=== PATIENT | male | born 1955 | race Caucasian/White ===

== ENCOUNTER 2023-07-09 10:09 | Outpatient (REF) | payer MEDICARE, SELFPAY ==
[2023-07-09 14:21] LABS: SARS-CoV-2 Ag NEGATIVE (NEGATIVE)
[2023-07-10 12:49] LABS: SARS-CoV-2 NAA NOT DETECTED (NOT DETECTE)
== END 2023-07-09 10:10 | disposition home or self-care (01) ==
LOC: LAB 10:09
PROVIDERS: PCP Family Medicine; Visit Provider Family Medicine
DX: J44.9 Chronic obstructive pulmonary disease, unspecified (principal)
CPT/HCPCS: 87635; 87811; U0003

== ENCOUNTER 2023-07-16 08:58 | Outpatient (OUT) | payer MEDICARE, SELFPAY ==
[2023-07-16 09:44] LABS: Aspartate Amino Transferase 82 U/L (15-37); BUN Creatinine Ratio 19.2; Carbon Dioxide 27.4 mmol/L (21.0-32.0); Chloride 99 mmol/L (98-107); Chol HDL Ratio 2.7; Cholesterol 173 mg/dL (<=200); Estimated GFR (African America >60 (>=60); Estimated GFR (Non-African Ame >60 (>=60); Glucose 138 mg/dL (74-106); HDL Cholesterol 63 mg/dL (40-60); Potassium 4.4 mmol/L (3.5-5.1); Sodium 132 mmol/L (136-145); Thyroid Stimulating Hormone 3.657 uIU/mL (0.358-3.740); Triglycerides 145 mg/dL (<=150)
== END 2023-07-16 08:59 | disposition home or self-care (01) ==
LOC: LAB 08:59
PROVIDERS: PCP Family Medicine; Visit Provider Internal Medicine Cardiovascular Disease
DX: I48.92 Unspecified atrial flutter (principal); Z79.899 Other long term (current) drug therapy; E78.5 Hyperlipidemia, unspecified
CPT/HCPCS: 36415; 80048; 80061; 84443; 84450

== ENCOUNTER 2023-11-25 09:53 | Outpatient (REF) | payer MEDICARE, SELFPAY ==
[2023-11-25 10:37] LABS: Influenza Virus A Antigen Negative; Influenza Virus B Antigen Negative; Internal Control Within Normal Limits; Respiratory Syncytial Virus Not Detected (NOT DETECTE); SARS-CoV-2 Ag NEGATIVE (NEGATIVE)
== END 2023-11-25 09:54 | disposition home or self-care (01) ==
LOC: LAB 09:53
PROVIDERS: PCP Family Medicine; Visit Provider Family Medicine
DX: J21.9 Acute bronchiolitis, unspecified (principal)
CPT/HCPCS: 87420; 87804; 87811

== ENCOUNTER 2024-01-09 12:10 | Outpatient (OUT) | payer MEDICARE, SELFPAY ==
--- NOTE | 2024-01-09 | RT_ITS ---
[facility] Test Date: 2024-01-09 Pat Name: REMEDIOS VAUGHAN Department: Room: - Gender: Male [employer]: Rakesh Wagner RRT : 1955 Requested By: [id number] Order Number: [id number] Reading MD: Gasper Sewell Interpretive Statements Pulmonary function testing was completed according to ATS criteria. Findings were considered accurate and reproducible. Both pre- and post-bronchodilator values utilized for spirometry. No plethysmography was ordered. Spirometry (based on pre-bronchodilator values): -FEV1/FVC: Reduced @ 43% -FEV1: Severely reduced @ 40% -FVC: Reduced @ 68% -There is a positive bronchodilator response in FEV1 and FVC. Diffusion capacity: -DLCO: Mild-moderate reduction @ 65% when corrected for Hb 13.1g/dL Flow-volume loop: -Severe obstructive pattern Comparison from 01/10/2023 and 10/23/2022: -FEV1: Very slight decline from 43% & 46% respectively -DLCO: Very little change from 63% & 67% respectively Impressions: -Severe obstructive pattern on spirometry with a positive bronchodilator response and mild-moderate diffusion impairment. This pattern suggests either asthma-COPD overlap or COPD with a bronchodilator response. When compared to prior studies, there has been a very slight trend of worsening spirometry, and diffusion impairment is relatively unchanged. Clinical correlation required. Electronically Signed On 01-14-2024 10:39:31 EDT by Gasper Sewell
--- OUTSIDE RECORDS SUMMARY | 2024-01-09 12:16 | XMS_ITS | CCD ---
Author Name Unknown Address [address] [place] [address] Organization [facility] Care Team Providers Care Event Specialist Product Demonstrator Name Role Phone MD Tirso Frausto Primary Care Provider MD Pola Anders Admit Provider MD Jin Berkowitz Attending Provider [phone] MD Ama Morrison Attending Provider Tirso Frausto Unavailable Unavailable Unavailable MD Marcus Recinos Attending Provider [phone] MD Marcus Recinos Referring Provider [phone] Tirso Frausto Primary Care Physician Unavailable Unavailable MD Tirso Frausto Primary Care Provider Jina Rios Unavailable Carlos A Salazar Unavailable Victoria Mujica Unavailable Olga Phipps Unavailable Dr. Tirso Frausto Primary Care Unavail able Marcus Recinos Attending Unavailable Marcus Recinos Referring Unavailable Dr. Tirso Frausto Primary Care Unavail able Marcus Recinos Attending Unavailable Devendra Recinosan Referring Unavailable Marcus Recinos Attending Unavailable Dr. Tirso Frausto Primary Care Unavail able Marcus Recinos Referring Unavailable Marcus Recinos Attending Unavailable Dr. Tirso Frausto Primary Care Unavail able Conor, Dr. Darwin Gee Attending Unava ilable Dr. Darwin Perdomo Referring Unava ilable Dr. Tirso Frausto Primary Care Unavail able Recinos, Marcus Referring Unavailable Hoy, Dr. Tirso Santos Primary Care Unavail able Recinos, Marcus Attending Unavailable REQUEST, NONE LISTED Primary Care Unavaila ble HOY ., DR CHAHAL Consulting Unavailable HOY ., DR CHAHAL Attending Unavailable HOY ., DR CHAHAL Admitting Unavailable FESTUS, STANFORD Consulting Unavailable RECINOS, DR MARCUS Rivera Attending Unavailable RECINOS, DR MARCUS Rivera Admitting Unavailable RECINOS, DR MARCUS Rivera Consulting Unavailable RECINOS, DR MARCUS Rivera Attending Unavailable RECINOS, DR MARCUS Rivera Admitting Unavailable REQUEST, NONE LISTED Primary Care Unavaila ble RECINOS, DR MARCUS Rivera Consulting Unavailable HOY ., DR CHAHAL Consulting Unavailable REQUEST, NONE LISTED Primary Care Unavaila ble HOY ., DR CHAHAL Attending Unavailable HOY ., DR CHAHAL Admitting Unavailable RECINOS, DR MARCUS Rivera Consulting Unavailable RECINOS, DR MARUCS Rivera Consulting Unavailable RECINOS, DR MARCUS Rivera Attending Unavailable RECINOS, DR MARCUS Rivera Admitting Unavailable REQUEST, DR NONE LISTED Primary Care Unavaila ble RECINOS, DR MARCUS Rivera Attending Unavailable RECINOS, DR MARCUS Rivera Admitting Unavailable REQUEST, NONE LISTED Primary Care Unavaila ble DEE BARTON Consulting Unavailable RECINOS, DR MARCUS Rivera Consulting Unavailable NOELLE VALERA Attending Unavailable NOELLE VALERA Admitting Unavailable REQUEST, NONE LISTED Primary Care Unavaila ble NOELLE VALERA Consulting Unavailable HOY ., DR CHAHAL Consulting Unavailable REQUEST, DR NONE LISTED Primary Care Unavaila ble HOY ., DR CHAHAL Attending Unavailable HOY ., DR CHAHAL Admitting Unavailable HOY ., DR CHAHAL Primary Care Unavailable HOY ., DR CHAHAL Consulting Unavailable HOY ., DR CHAHAL Attending Unavailable HOY ., DR CHAHAL Admitting Unavailable HOY ., DR CHAHAL Primary Care Unavailable HOY ., DR CHAHAL Attending Unavailable HOY ., DR CHAHAL Consulting Unavailable HOY ., DR CHAHAL Admitting Unavailable Recinos, Marcus Admitting Unavailable Recinos, Marcus Attending Unavailable FrancoyTirso Primary Care Unavailable Recinos, Marcus Admitting Unavailable Recinos, Marcus Attending Unavailable HoyTirso Primary Care Unavailable Recinos, Marcus Admitting Unavailable Recinos, Marcus Attending Unavailable Hoy, Tirso M Primary Care Unavailable Tirso Frausto MD Primary Care Provider MARCUS RECINOS Attending Unavailable TIRSO FRAUSTO Primary Care Unavailable Allergies Allergy Classification Reported Allergen(s) Allergy Type Date of Onset Reaction(s) Facility (12 sources) Ciprofloxacin; Translations: [Ciprofloxacin] Drug Allergy 03-27-2022 [facility] (14 sources) Ciprofloxacin; Translations: [Cipro XR] Drug Allergy [facility] 250 DO Work Phone: (1 source) Ciprofloxacin Drug Allergy 04-19-2015 [facility] (2 sources) Ciprofloxacin; Translations: [CIPROFLOXACIN (MIXTURE)] Drug Allergy 10-14-2023 [facility] Work Phone: Medications Current Medications Medication Drug Class(es) Dates Sig (Normalized) Sig (Original) Albuterol (Eqv-Proventil HFA) 90 mcg/inh inhalation aerosol (1 source) Start: 03-02-2021 take 2 puff(s) by inhalation four times daily Albuterol (Eqv-Proventil HFA) 90 mcg/inh inhalation aerosol = 2 puff(s), Inhalation, QID, Refills(s) 0 Start Date: 03/02/21 Status: Ordered amiodarone hydrochloride 200 mg oral tablet (20 sources) Antiarrhythmic Start: 10-14-2023 take 1 tablet by mouth once daily amiodarone (Pacerone) 200 mg tablet Indications: Unspecified atrial flutter (CMS/HCC) TAKE 1 TABLET BY MOUTH EVERY DAY 90 tablet 1 10/14/2023 Active Start: 03-27-2022 End: 12-04-2023 take 1 tablet by mouth once daily Amiodarone HCl - 200 MG Oral Tablet TAKE 1 TABLET Daily Quantity: 90 Refills: 1 Ordered: 08-Nov-2022 Marcus Recinos MD Start : 15-May-2022 Active Start: 02-13-2022 End: 03-27-2022 take 200 mg by mouth twice daily Amiodarone Discontinued 200 MG PO Twice daily March 27, 2022 12:00am March 27, 2022 9:17am apixaban 5 mg oral tablet (14 sources) Factor Xa Inhibitor Start: 01-20-2022 take 1 tablet by mouth twice daily Eliquis 5 mg oral tablet 5 mg = 1 tab(s), Oral, BID, Blood Thinner Start Date: 04/16/22 Status: Ordered ascorbic acid 226 mg / beta carotene [id number] unt / cuprous oxide 0.8 mg / dl-alpha tocopheryl acetate 200 unt / zinc oxide 34.8 mg oral capsule (2 sources) Vitamin C Start: 04-16-2022 take 1 capsule by mouth once daily PreserVision AREDS oral capsule 1 cap, Oral, Daily, Prophylaxis Start Date: 04/16/22 Status: Ordered take 1 tablet by kyle th every twelve hours vitamins A,C,Q-faby-ptdyws (PreserVision AREDS) 2,148 mcg-113 mg-45 mg-17.4mg tablet Take 1 tablet by mouth every 12 hours. 0 Active ascorbic acid 113 mg / copper gluconate 0.4 mg / docosahexaenoic acid 87.5 mg / eicosapentaenoic acid 163 mg / lutein 2.5 mg / tocopherol acetate 100 unt / zeaxanthin 0.5 mg / zinc oxide 17.4 mg oral capsule (7 sources) Vitamin C take 1 capsule by mouth twice daily PreserVision AREDS 2 - 1 Capsule Orally Twice a day Active furosemide 40 mg oral tablet (20 sources) Loop Diuretic Start: take 1 tablet by mouth once daily as needed for edema furosemide 40 mg Tab 40 mg = 1 tab(s), Oral, Daily, PRN Edema Start Date: 04/16/22 Status: Ordered Start: 01-23-2022 Furosemide (La six) 40 mg tablet Active 40 MG PO Daily January 23, 2022 9:25am Take for swelling/edema take for increase in weight by 3 pounds in 24 hours or 5 pounds in 48 hours pantoprazole 40 mg delayed release oral tablet (20 sources) Proton Pump Inhibitor Start: 01-04-2021 take 40 mg by mouth once daily Pantoprazole Active 40 MG PO Daily January 20, 2022 12:00am pravastatin sodium 40 mg oral tablet (1 source) HMG-CoA Reductase Inhibitor Start: 08-21-2023 take 1 tablet by mouth once daily pravastatin (Pravachol) 40 mg tablet Take 1 tablet (40 mg) by mouth once daily. 0 08/21/2023 Active prednisoLONE acetate 10 mg/ml ophthalmic suspension (15 sources) Corticosteroid Start: 04-06-2022 End: 12-04-2023 prednisoLONE acetate (Pred-Forte) 1 % ophthalmic suspension Administer into affected eye(s). 0 04/06/2022 12/04/2023 Discontinued (Therapy completed) Start: 04-06-2022 take 1 drop(s) into the eye(s) four times daily prednisoLONE Acetate 1 % Ophthalmic Suspension INSTILL 1 DROP INTO AFFECTED EYE 4 TIMES A DAY DIRECTED Quantity: 5 Refills: 0 Ordered: 06-Apr-2022 DO Start : 06-Apr-2022 Active rivaroxaban 20 mg oral tablet (12 sources) Factor Xa Inhibitor Start: 10-11-2023 take 1 tablet by mouth once daily at mealtime Xarelto 20 mg tablet Take 1 tablet (20 mg) by mouth once daily in the evening. Take with meals. 0 10/11/2023 Active Start: 01-21-2023 take 1 tablet by kyle th once daily Xarelto 20 MG Oral Tablet Take 1 tablet daily Quantity: 90 Refills: 3 Ordered: 21-Jan-2023 Marcus Recinos MD Start : 21-Jan-2023 Active new start Start: 04-24-2022 take 1 tablet by kyle th once daily Xarelto 20 MG Oral Tablet Take 1 tablet by mouth daily. Quantity: 90 Refills: 3 Ordered: 24-Apr-2022 Marcus Recinos MD Start : 24-Apr-2022 Active stop eliquis/ new start simvastatin 20 mg oral tablet (20 sources) HMG-CoA Reductase Inhibitor Start: 01-04-2021 take 20 mg by mouth once daily Simvastatin Active 20 MG PO Daily January 20, 2022 12:00am spironolactone 25 mg oral tablet (20 sources) Aldosterone Antagonist Start: 04-16-2022 take 1 tablet by mouth twice daily spironolactone 25 mg Tab 25 mg = 1 tab(s), Oral, BID, diuretic/water pill Start Date: 04/16/22 Status: Ordered Start: 01-23-2022 take 12.5 mg by mout h once daily in the morning Spironolactone Active 12.5 MG PO Every morning 15 January 23, 2022 9:25am take 0.5 tablet by m outh once daily spironolactone (Aldactone) 25 mg tablet Take 0.5 tablets (12.5 mg) by mouth once daily. 0 Active tamsulosin hydrochloride 0.4 mg oral capsule (20 sources) alpha-Adrenergic Clare Start: 01-04-2021 End: 12-04-2023 take 0.4 mg by mouth once daily Tamsulosin Active 0.4 MG PO Daily January 20, 2022 12:00am Vit C,C-Wo-Ybilt-Lutein- Zeaxan (Preservision Areds-2) 250-90-40-1 mg Capsule (6 sources) Start: 01-20-2022 Vit C,W-Yt-Cwnkn-Lut ein-Zeaxan (Preservision Areds-2) 250-90-40-1 mg Capsule Active 1 TAB PO Twice daily January 20, 2022 2:13am Start: 01-20-2022 Vit C,E-Zn-Infant Toddler Lead Teacher rn-Emkuhb-Bommft (Preservision Areds-2) 250-90-40-1 mg Capsule Active 1 TAB PO Twice daily January 20, 2022 12:00am Completed/Discontinued Medications Medication Drug Class(es) Dates Sig (Normalized) Sig (Original) [id number] 200 actuat albuterol 0.09 mg/actuat metered dose inhaler (20 sources) beta2-Adrenergic Agonist Start: 03-15-2022 take 2 puff(s) by mouth every four hours as needed Albuterol Sulfate HFA 108 (90 Base) MCG/ACT Inhalation Aerosol Solution INHALE 2 PUFFS BY MOUTH EVERY 4 HOURS NEEDED Quantity: 18 Refills: 0 Ordered: 15-Mar-2022 DO Start : 15-Mar-2022 Active take 2 puff(s) by in halation every four hours Ventolin HFA 90 mcg/actuation inhaler Inhale 2 puffs every 4 hours if needed. 0 Active take 1 puff(s) by in halation every four hours as needed Ventolin HFA 108 (90 Base) MCG/ACT 1 puf f as needed Inhalation every 4 hrs Active aspirin 81 mg delayed release oral tablet (14 sources) Platelet Aggregation Inhibitor, Nonsteroidal Anti-inflammatory Drug Start: 11-08-2022 take 1 tablet by mouth every week Aspirin 81 MG Oral Tablet Delayed Release TAKE 1 TABLET Weekly Quantity: 12 Refills: 3 Ordered: 08-Nov-2022 Marcus Recinos MD Start : 08-Nov-2022 Active digoxin 0.125 mg oral tablet (6 sources) Cardiac Glycoside Start: 01-23-2022 End: 03-27-2022 take 125 ug by mouth once daily Digoxin Discontinued 125 MCG PO Daily January 23, 2022 9:24am March 27, 2022 8:25am enalapril maleate 5 mg oral tablet (6 sources) Angiotensin Converting Enzyme Inhibitor Start: 01-23-2022 End: 03-27-2022 take 1 tablet by mouth once daily in the evening Enalapril Maleate (Vasotec) 5 mg tablet Discontinued 5 MG PO Every evening January 23, 2022 9:25am March 27, 2022 8:25am 24 hr isosorbide mononitrate 60 mg extended release oral tablet (6 sources) Nitrate Vasodilator Start: 01-20-2022 End: 01-23-2022 take 30 mg by mouth once daily Isosorbide Mononitrate Discontinued 30 MG PO Daily January 20, 2022 2:13am January 23, 2022 9:41am 24 hr metoprolol succinate 25 mg extended release oral tablet (20 sources) beta-Adrenergic Clare Start: 11-08-2022 take 1 tablet by mouth once daily Metoprolol Succinate ER 25 MG Oral Tablet Extended Release 24 Hour TAKE 1 TABLET DAILY. Quantity: 90 Refills: 3 Ordered: 08-Nov-2022 Marcus Recinos MD Start : 08-Nov-2022 Active new dose Start: 03-27-2022 End: 03-27-2022 Metoprolol Succinate (Toprol Xl) 50 mg tablet extended release 24 hr Discontinued 100 MG PO Daily March 27, 2022 8:28am March 27, 2022 9:18am Start: 02-13-2022 take 1 tablet by kyle th once daily Metoprolol Succinate ER 100 MG Oral Tablet Extended Release 24 Hour TAKE 1 TABLET ONCE DAILY. Quantity: 90 Refills: 3 Ordered: 13-Feb-2022 Marcus Recinos MD Start : 13-Feb-2022 Active increase dose Start: 01-23-2022 End: 03-27-2022 take 1 tablet by mouth once daily Metoprolol Succinate (Toprol Xl) 50 mg tablet extended release 24 hr Active 50 MG PO Daily 30 March 27, 2022 12:00am Start: 01-20-2022 End: 01-23-2022 take 50 mg by mouth twice daily Metoprolol Tartrate Di scontinued 50 MG PO Twice daily January 20, 2022 2:13am January 23, 2022 9:41am Start: 01-18-2022 take 1 tablet by kyle th once daily Metoprolol Tartrate 50 MG Oral Tablet TAKE 1 TABLET DAILY. Quantity: 0 Refills: 0 Ordered: 18-Jan-2022 DO Start : 18-Jan-2022 Active PreserVision AREDS TABS (20 sources) PreserVision ARE DS TABS TAKE 1 TABLET EVERY 12 HOURS. Quantity: 0 Refills: 0 Ordered: 13-Feb-2022 DO Active vitamin b6 100 mg oral tablet (20 sources) Start: End: 2 take 1 tablet by mouth once daily Pyridoxine (Vitamin B6) (Vitamin B-6) 100 mg Tablet Discontinued 100 MG PO Daily January 20, 2022 2:13am March 27, 2022 8:27am warfarin sodium 4 mg oral tablet (10 sources) Vitamin K Antagonist Start: 2 Warfarin Sodium 4 MG Oral Tablet 1 tablet daily - [place] [facility] [place] Quantity: 30 Refills: 0 Ordered: 15-Oct-2022 Marcus Recinos MD Start : 15-Oct-2022 Active 3 day overlap with Xarelto then stop Xarelto Warfarin Sodium 4 MG as directed Orally Once a day Active Problems Active Problems Problem Classification Problem Date Documented Da te Episodic/Chronic Acute bronchitis (5 sources) Acute bronchitis, unspecified; Translations: [ACUTE BRONCHITIS UNSPECIFIED] Onset: 03-20-2022 Episodic Allergic reactions (1 source) Eczema 01-04-2021 Episodic Cardiac dysrhythmias (20 sources) Atrial flutter; Translations: [Unspecified atrial flutter] Onset: 07-30-2022 01-20-2022 Chronic Cataract (2 sources) Cataract; Translations: [Unspecified cataract] Onset: 04-16-2022 Chronic Chronic obstructive pulmonary disease and bronchiectasis (8 sources) Chronic obstructive lung disease; Translations: [Chronic airway obstruction, not elsewhere classified] Onset: 10-14-2023 12-04-2023 Chronic Coronary atherosclerosis and other heart disease (1 source) Coronary arteriosclerosis; Translations: [Atherosclerotic heart disease of [place] coronary artery without angina pectoris] 12-04-2023 Chronic Diabetes mellitus with complications (1 source) Type 2 diabetes mellitus with hyperglycemia; Translations: [TYPE 2 DM W/HYPERGLYCEMIA] Onset: 03-14-2023 Chronic Diabetes mellitus without complication (11 sources) Diabetes mellitus; Translations: [Type 2 diabetes mellitus without complications] 01-20-2022 Chronic Disorders of lipid metabolism (20 sources) Hyperlipidemia; Translations: [Hyperlipidemia, unspecified] Onset: 11-15-2022 01-20-2022 Chronic Diverticulosis and diverticulitis (1 source) Diverticulitis of sigmoid colon 04-19-2021 Chronic Essential hypertension (20 sources) Benign essential hypertension; Translations: [Benign essential hypertension] Onset: 11-14-2022 Chronic Heart valve disorders (1 source) Heart murmur 01-04-2021 Episodic Inflammatory conditions of male genital organs (1 source) Prostatitis 01-04-2021 Episodic Other aftercare (20 sources) Drug therapy finding; Translations: [Long-term (current) use of other medications] Episodic Other aftercare (7 sources) Other parts counterman (current) drug therapy; Translations: [OTH [facility] CURRENT DRUG THERAPY] Onset: 10-22-2022 Episodic Other aftercare (2 sources) Taking high risk medication; Translations: [Other parts counterman (current) drug therapy] Onset: 10-14-2023 12-04-2023 Episodic Other and ill-defined heart disease (1 source) Ventricular hypertrophy 01-04-2021 Chronic Other and unspecified benign neoplasm (1 source) Benign neoplasm of soft tissue 01-04-2021 Episodic Other and unspecified benign neoplasm (1 source) 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 Other ear and sense organ disorders (1 source) Hearing loss 01-04-2021 Chronic Other eye disorders (1 source) Intraoperative floppy iris syndrome; 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] Onset: 04-16-2022 Episodic Other gastrointestinal disorders (1 source) Occult blood in stools 03-02-2021 Episodic Other lower respiratory disease (6 sources) Dyspnea on exertion; Translations: [Other respiratory abnormalities] Episodic Other lower respiratory disease (1 source) Dyspnea; Translations: [Shortness of breath] Onset: 10-14-2023 10-14-2023 Episodic Other nutritional; endocrine; and metabolic disorders (20 sources) Obesity; Translations: [Obesity, unspecified] Chronic Other nutritional; endocrine; and metabolic disorders (1 source) Obese class I; Translations: [Obesity, unspecified] 12-04-2023 Chronic Bree-; endo-; and myocarditis; cardiomyopathy (except that caused by tuberculosis or sexually transmitted disease) (10 sources) Cardiomyopathy; Translations: [Cardiomyopathy, unspecified] 01-20-2022 Chronic Residual codes; unclassified (6 sources) Current drinker; Translations: [Other problems related to lifestyle] 01-20-2022 Episodic Residual codes; unclassified (4 sources) Other problems related to lifestyle; Translations: [Other specified conditions influencing health status] Episodic Screening and history of mental health and substance abuse codes (20 sources) Ex-smoker; Translations: [Personal history of tobacco use] Episodic Comment on above: QUIT IN 08/2021; Substance-related disorders (1 source) Smoker 03-02-2021 Chronic Comment on above: Added secondary to d ocumentation in Social History. Unclassified (1 source) CONTACT W/AND (SUSP) EXPOS COVID-19; Translations: [CONTACT W/AND (SUSP) EXPOS COVID-19] Onset: 03-20-2022 Unclassified (1 source) I48.92 - Unspecified atrial flutter; Translations: [I48.92 - Unspecified atrial flutter] Onset: 04-26-2022 Viral infection (1 source) COVID-19; Translations: [COVID-19] Onset: 02-08-2023 Past or Other Problems Problem Classification Problem Date Documented Da te Episodic/Chronic Diabetes mellitus without complication (1 source) Other abnormal glucose; Translations: [OTHER ABNORMAL GLUCOSE] Onset: 10-13-2022 Episodic Other aftercare (5 sources) Encounter for therapeutic drug level monitoring; Translations: [Encounter for therapeutic drug level monitoring] Onset: 01-01-2023 Episodic Other liver diseases (4 sources) Abnormal levels of other serum enzymes; Translations: [ABNORMAL LEVELS OTHER SERUM ENZYMES] Onset: 11-02-2022 Episodic Other non-traumatic joint disorders (1 source) Pain in unspecified joint; Translations: [PAIN IN UNSPECIFIED JOINT] Onset: 10-13-2022 Episodic Other screening for suspected conditions (not mental disorders or infectious disease) (3 sources) Abnormal results of liver function studies; Translations: [Encounter for screening for malignant neoplasm of prostate] Onset: 10-13-2022 Episodic Unclassified (1 source) Onset: 12-04-2023 12-04-2023 Results Test Name Value Interpretation Reference Range Facility ECG 12 Leadon 12-04-2023 ECG revealed normal sinus rhythm with first-degree AV block and left axis deviation [facility] Work Phone: GLYCOHEMOGLOBIN A1Con 2022 ADA RECOMMENDATION SEE BELOW Normal [facility] Comment on above: Result Comment: ADA RECOMMENDED LIMIT 4.0 - 6.0 ADA THERAPEUTIC TARGET < 7.0 ACTION SUGGESTED > 7.0 Performed By: #### A 1C #### [facility] [address] [place] [address] Dr. Igor Hayes Glucose [Mass/Vol] 137 mg/dL Normal [facility] Comment on above: Performed By: #### A 1C #### [facility] [address] [address] [address] Igor Hayes HbA1c (Bld) [Mass fraction] 6.4 % Critically high 4.5-6.2 [facility] Comment on above: Performed By: #### A 1C #### [facility] [address] [place] [address] Dr. Igor Hayes LIPID PROFILEon 03-08-2023 CHOL-HDL RATIO NORM SEE BELOW Normal [facility] Comment on above: Result Comment: 3.3 - 4.4 LOW RISK 4.4 - 7.1 AVERAGE RISK 7.1 - 11.0 MODERATE RISK >11.0 HIGH RISK Performed By: #### A 1C #### [facility] [address] [address] [address] Igor Hayes Cholesterol [Mass/Vol] 181 mg/dL Normal <=200 [facility] Comment on above: Performed By: #### A 1C #### [facility] [address] [address] [address] Igor Hayes Cholesterol in HDL [Mass/Vol] 64 mg/dL Critically high 40-60 [facility] Comment on above: Performed By: #### A 1C #### [facility] [address] [address] [address] Igor Hayes Cholesterol in LDL [Mass/Vol] 99.2 mg/dL Normal [facility] Comment on above: Performed By: #### A 1C #### [facility] [address] [address] [address] Igor Hayes Cholesterol.total/Ch olesterol in HDL [Mass ratio] 2.8 {ratio} Normal [facility] Comment on above: Performed By: #### A 1C #### [facility] [address] [place] [address] Dr. Igor Hayes HDL NORMAL > or = 60 mg/dl - LO W CARDIOVASCULAR RISK <40 mg/dl - HIGH CARDIOVASCULAR RISK Normal [facility] Comment on above: Performed By: #### A 1C #### [facility] [address] [address] [address] Igor Hayes LDL CALC NORMAL SEE BELOW Normal [facility] Comment on above: Result Comment: <100 mg/dl OPTIMAL 100 - 129 mg/dl NEAR OR ABOVE OPTIMAL 130 - 159 mg/dl BORDERLINE HIGH 160 - 189 mg/dl HIGH >190 mg/dl VERY HIGH Performed By: #### A 1C #### [facility] [address] [place] [address] Dr. Igor Hayes Triglyceride [Mass/Vol] 89 mg/dL Normal <=150 [facility] Comment on above: Performed By: #### A 1C #### [facility] [address] [place] [address] Dr. Igor Hayes VLDL CALC 17.8 mg/dL Normal [facility] Comment on above: Performed By: #### A 1C #### [facility] [address] [place] [address] Dr. Igor Hayes INFLUENZA A AND B AGon 02-01 INFLUANEGH SEE BELOW Normal [facility] Comment on above: Result Comment: Nega tive for Flu A protein angiten. Infection due to Flu A cannot be ruled out. Flu A angiten in the sample may be below the detection limit of the test. Performed By: #### O BSCRN #### [facility] [address] [place] [address] Dr. Igor Hayes [facility] SEE BELOW Normal [facility] Comment on above: Result Comment: Nega tive for Flu B protein antigen. Infection due to Flu B cannot be ruled out. Flu B antigen in the sample may be below the detection limit of the test. Performed By: #### O BSCRN #### [facility] [address] [place] [address] Dr. Igor Hayes INFLUENZA A AG Negative Normal NEGATIVE SEE COMMENT [facility] Comment on above: Performed By: #### O BSCRN #### [facility] [address] [place] [address] Dr. Igor Hayes INFLUENZA B AG Negative Normal NEGATIVE SEE COMMENT [facility] Comment on above: Performed By: #### O BSCRN #### [facility] [address] [place] [address] Dr. Igor Hayes SYMPTOMATIC COVID-19 ANTIGEN on 02-01-2023 EUA Statement SEE BELOW Normal [facility] Comment on above: Result Comment: This test has not been FDA cleared or approved, but has been authorized by the FDA under an Emergency Use Authorization (EUA) for use by authorized laboratories certified under CLIA that meet the requirements to perform moderate or high complexity testing. This test has been authorized only for the detection of proteins from SARS-CoV-2, not for any other viruses or pathogens. The emergency use of this test is authorized for the duration of the declaration that circumstances exist justifying the authorization of emergency use of in vitro diagnostic tests for detection and/or diagnosis of Covid-19 under section 564(b)(1) of the Act, 21 U.S.C. 360bbb-3(b)(1), unless the declaration is terminated or authorization is revoked sooner. Performed By: #### A 1C #### [facility] [address] [place] [address] Dr. Igor Hayes SARS-CoV-2 (COVID-19) RNA VERONIQUE+probe Ql (Unsp spec) Positive Abnormal NEGATIVE [facility] Comment on above: Performed By: #### A 1C #### [facility] [address] [place] [address] Dr. Igor Hayes HEMOGLOBINon 01-10-2023 Hemoglobin (Bld) [Mass/Vol] 14.4 g/dL Normal 14.0-18.0 [facility] Comment on above: Performed By: #### H GB #### [facility] [address] [place] [address] Dr. Igor Hayes PROF CHEM 8 (BAS METB)on Anion gap [Moles/Vol] 8.4 mmol/L Normal [facility] Comment on above: Performed By: #### O BSCRN #### [facility] [address] [place] [address] Dr. Igor Hayes Calcium [Mass/Vol] 8.9 mg/dL Normal 8.5-10.1 [facility] Comment on above: Performed By: #### O BSCRN #### [facility] [address] [place] [address] Dr. Igor Hayes Chloride [Moles/Vol] 103 mmol/L Normal 98-107 [facility] Comment on above: Performed By: #### O BSCRN #### [facility] [address] [place] [address] Dr. Igor Hayes CO2 [Moles/Vol] 31.2 mmol/L Normal 21.0-32.0 [facility] Comment on above: Performed By: #### O BSCRN #### [facility] [address] [place] [address] Dr. Igor Hayes Creatinine [Mass/Vol] 1.02 mg/dL Normal 0.70-1.30 [facility] Comment on above: Performed By: #### O BSCRN #### [facility] [address] [place] [address] Dr. Igor Hayes EGFR-AF COMORAN >60 Normal >=60 [facility] Comment on above: Performed By: #### O BSCRN #### [facility] [address] [place] [address] Dr. Igor Hayes EGFR-NON AF COMORAN >60 Normal >=60 [facility] Comment on above: Performed By: #### O BSCRN #### [facility] [address] [address] [address] Igor Hayes Glucose [Mass/Vol] 133 mg/dL Critically high 74-106 T [facility] Comment on above: Performed By: #### O BSCRN #### [facility] [address] [place] [address] Dr. Igor Hayes Potassium [Moles/Vol] 4.6 mmol/L Normal 3.5-5.1 [facility] Comment on above: Performed By: #### O BSCRN #### [facility] [address] [place] [address] Dr. Igor Hayes Sodium [Moles/Vol] 138 mmol/L Normal 136-145 [facility] Comment on above: Performed By: #### O BSCRN #### [facility] [address] [place] [address] Dr. Igor Hayes Urea nitrogen [Mass/Vol] 17.0 mg/dL Normal 7.0-18.0 [facility] Comment on above: Performed By: #### O BSCRN #### [facility] [address] [place] [address] Dr. Igor Hayes Urea nitrogen/Creatinine [Mass ratio] 16.7 mg/mg Normal [facility] Comment on above: Performed By: #### O BSCRN #### [facility] [address] [place] [address] Dr. Igor Hayes SGOTon 01-10-2023 AST [Catalytic activity/Vol] 36 U/L Normal 15-37 [facility] Comment on above: Performed By: #### O BSCRN #### [facility] [address] [place] [address] Dr. Igor Hayes TSHon 01-10-2023 TSH 4.230 uIU/mL Critically high 0.358-3.74 0 [facility] Comment on above: Performed By: #### O BSCRN #### [facility] [address] [address] [address] Igor Hayes XR CHEST 2 Von 01-10-2023 XR CHEST 2 V EXAM: CHEST 2 VIEWS HISTORY: Atrial flutter TECHNIQUE: PA and lateral views chest. COMPARISON: 10/22/2022. FINDINGS: The lungs are clear. There is no focal lung consolidation, pleural effusion or pneumothorax. Pulmonary vasculature is within normal limits. There is aortic atherosclerosis and normal heart size. IMPRESSION: 1. No acute cardiopulmonary disease. Electronically authenticated by: DEE BARTON Date: 2023-01-10 13:02 Normal [facility] Prothrombin Time INRon 01-01 INR Coag (PPP) [Relative time] 2.9 {INR} Blood cell Storage Other Prothrombin Time INR [employer] Other Prothrombin Time INRon 12-10 INR Coag (PPP) [Relative time] 2.7 {INR} Blood cell [employer] Other Prothrombin Time INR [facility] [employer] Other Prothrombin Time INRon 11-26 INR Coag (PPP) [Relative time] 2.6 {INR} Blood cell [employer] Other Prothrombin Time INR [employer] Other Prothrombin Time INRon 11-15 INR Coag (PPP) [Relative time] 3.2 {INR} Blood cell [employer] Other Prothrombin Time INR [employer] Other LIPID PROFILEon 11-14-2022 CHOL-HDL RATIO NORM SEE BELOW Normal [facility] Comment on above: Result Comment: 3.3 - 4.4 LOW RISK 4.4 - 7.1 AVERAGE RISK 7.1 - 11.0 MODERATE RISK >11.0 HIGH RISK Performed By: #### O BSCRN #### [facility] [address] [address] [address] Igor Hayes Cholesterol [Mass/Vol] 186 mg/dL Normal <=200 [facility] Comment on above: Performed By: #### O BSCRN #### [facility] [address] [address] [address] Igor Hayes Cholesterol in HDL [Mass/Vol] 64 mg/dL Critically high 40-60 [facility] Comment on above: Performed By: #### O BSCRN #### [facility] [address] [address] [address] Igor Hayes Cholesterol in LDL [Mass/Vol] 99.0 mg/dL Normal [facility] Comment on above: Performed By: #### O BSCRN #### [facility] [address] [address] [address] Igor Hayes Cholesterol.total/Ch olesterol in HDL [Mass ratio] 2.9 {ratio} Normal [facility] Comment on above: Performed By: #### O BSCRN #### [facility] [address] [place] [address] Dr. Igor Hayes HDL NORMAL > or = 60 mg/dl - LO W CARDIOVASCULAR RISK <40 mg/dl - HIGH CARDIOVASCULAR RISK Normal [facility] Comment on above: Performed By: #### O BSCRN #### [facility] [address] [address] [address] Igor Hayes LDL CALC NORMAL SEE BELOW Normal [facility] Comment on above: Result Comment: <100 mg/dl OPTIMAL 100 - 129 mg/dl NEAR OR ABOVE OPTIMAL 130 - 159 mg/dl BORDERLINE HIGH 160 - 189 mg/dl HIGH >190 mg/dl VERY HIGH Performed By: #### O BSCRN #### [facility] [address] [address] [address] Igor Hayes Triglyceride [Mass/Vol] 115 mg/dL Normal <=150 [facility] Comment on above: Performed By: #### O BSCRN #### [facility] [address] [address] [address] Igor Hayes VLDL CALC 23.0 mg/dL Normal [facility] Comment on above: Performed By: #### O BSCRN #### [facility] [address] [address] [address] Igor Hayes Tobacco Screening.on 023 Adult depression screening assessment No [facility] [employer] DO Work Phone: Fall risk assessment a) No falls within the last year [facility] [employer] DO Work Phone: Tobacco use status [facility] b) No [facility] [employer] DO Work Phone: AMMONIAon 11-02-2022 Ammonia (P) [Moles/Vol] 12 umol/L Normal 11-32 [facility] Comment on above: Performed By: #### A 1C #### [facility] [address] [place] [address] Dr. Igor Hayes PROF 14(COMP METB)on 022 Albumin [Mass/Vol] 3.9 g/dL Normal 3.4-5.0 [facility] Comment on above: Performed By: #### A 1C #### [facility] [address] [place] [address] Dr. Igor Hayes Albumin/Globulin [Mass ratio] 1.1 {ratio} Normal [facility] Comment on above: Performed By: #### A 1C #### [facility] [address] [place] [address] Dr. Igor Hayes ALP [Catalytic activity/Vol] 48 U/L Normal 46-116 [facility] Comment on above: Performed By: #### A 1C #### [facility] [address] [place] [address] Dr. Igor Hayes ALT [Catalytic activity/Vol] 70 U/L Critically high 16-63 [facility] Comment on above: Performed By: #### A 1C #### [facility] [address] [place] [address] Dr. Igor Hayes Anion gap [Moles/Vol] 13.5 mmol/L Normal [facility] Comment on above: Performed By: #### A 1C #### [facility] [address] [place] [address] Dr. Igor Hayes AST [Catalytic activity/Vol] 41 U/L Critically high 15-37 [facility] Comment on above: Performed By: #### A 1C #### [facility] [address] [address] [address] Igor Hayes Bilirubin [Mass/Vol] 0.6 mg/dL Normal 0.2-1.0 [facility] Comment on above: Performed By: #### A 1C #### [facility] [address] [address] [address] Igor Hayes Calcium [Mass/Vol] 9.0 mg/dL Normal 8.5-10.1 [facility] Comment on above: Performed By: #### A 1C #### [facility] [address] [address] [address] Igor Hayes Chloride [Moles/Vol] 102 mmol/L Normal 98-107 [facility] Comment on above: Performed By: #### A 1C #### [facility] [address] [place] [address] Dr. Igor Hayes CO2 [Moles/Vol] 28.9 mmol/L Normal 21.0-32.0 [facility] Comment on above: Performed By: #### A 1C #### [facility] [address] [address] [address] Igor Hayes Creatinine [Mass/Vol] 1.14 mg/dL Normal 0.70-1.30 [facility] Comment on above: Performed By: #### A 1C #### [facility] [address] [place] [address] Dr. Igor Hayes EGFR-AF COMORAN >60 Normal >=60 [facility] Comment on above: Performed By: #### A 1C #### [facility] [address] [address] [address] Igor Hayes EGFR-NON AF COMORAN >60 Normal >=60 [facility] Comment on above: Performed By: #### A 1C #### [facility] [address] [place] [address] Dr. Igor Hayes Globulin (S) [Mass/Vol] 3.7 g/dL Normal [facility] Comment on above: Performed By: #### A 1C #### [facility] [address] [address] [address] Igor Hayes Glucose [Mass/Vol] 166 mg/dL Critically high 74-106 T [facility] Comment on above: Performed By: #### A 1C #### [facility] [address] [address] [address] Igor Hayes Potassium [Moles/Vol] 4.4 mmol/L Normal 3.5-5.1 [facility] Comment on above: Performed By: #### A 1C #### [facility] [address] [place] [address] Dr. Igor Hayes Protein [Mass/Vol] 7.6 g/dL Normal 6.4-8.2 [facility] Comment on above: Performed By: #### A 1C #### [facility] [address] [place] [address] Dr. Igor Hayes Sodium [Moles/Vol] 140 mmol/L Normal 136-145 [facility] Comment on above: Performed By: #### A 1C #### [facility] [address] [place] [address] Dr. Igor Hayes Urea nitrogen [Mass/Vol] 18.0 mg/dL Normal 7.0-18.0 [facility] Comment on above: Performed By: #### A 1C #### [facility] [address] [place] [address] Dr. Igor Hayes Urea nitrogen/Creatinine [Mass ratio] 15.8 mg/mg Normal [facility] Comment on above: Performed By: #### A 1C #### [facility] [address] [place] [address] Dr. Igor Hayes HEMOGLOBINon 10-22-2022 Hemoglobin (Bld) [Mass/Vol] 15.3 g/dL Normal 14.0-18.0 [facility] Comment on above: Performed By: #### A 1C #### [facility] [address] [place] [address] Dr. Igor Hayes PROF CHEM 8 (BAS METB)on Anion gap [Moles/Vol] 12.9 mmol/L Normal [facility] Comment on above: Performed By: #### A ST, BMP, TSH #### [facility] [address] [address] [address] Igor Hayes Calcium [Mass/Vol] 9.2 mg/dL Normal 8.5-10.1 [facility] Comment on above: Performed By: #### A ST, BMP, TSH #### [facility] [address] [address] [address] Igor Hayes Chloride [Moles/Vol] 103 mmol/L Normal 98-107 [facility] Comment on above: Performed By: #### A ST, BMP, TSH #### [facility] [address] [address] [address] Igor Hayes CO2 [Moles/Vol] 29.7 mmol/L Normal 21.0-32.0 [facility] Comment on above: Performed By: #### A ST, BMP, TSH #### [facility] [address] [place] [address] Dr. Igor Hayes Creatinine [Mass/Vol] 1.16 mg/dL Normal 0.70-1.30 [facility] Comment on above: Performed By: #### A ST, BMP, TSH #### [facility] [address] [place] [address] Dr. Igor Hayes EGFR-AF COMORAN >60 Normal >=60 [facility] Comment on above: Performed By: #### A ST, BMP, TSH #### [facility] [address] [place] [address] Dr. Igor Hayes EGFR-NON AF COMORAN >60 Normal >=60 [facility] Comment on above: Performed By: #### A ST, BMP, TSH #### [facility] [address] [address] [address] Igor Hayes Glucose [Mass/Vol] 125 mg/dL Critically high 74-106 [facility] Comment on above: Performed By: #### A ST, BMP, TSH #### [facility] [address] [place] [address] Dr. Igor Hayes Potassium [Moles/Vol] 4.6 mmol/L Normal 3.5-5.1 [facility] Comment on above: Performed By: #### A ST, BMP, TSH #### [facility] [address] [address] [address] Igor Hayes Sodium [Moles/Vol] 141 mmol/L Normal 136-145 [facility] Comment on above: Performed By: #### A ST, BMP, TSH #### [facility] [address] [address] [address] Igor Hayes Urea nitrogen [Mass/Vol] 17.0 mg/dL Normal 7.0-18.0 [facility] Comment on above: Performed By: #### A ST, BMP, TSH #### [facility] [address] [place] [address] Dr. Igor Hayes Urea nitrogen/Creatinine [Mass ratio] 14.7 mg/mg Normal [facility] Comment on above: Performed By: #### A ST, BMP, TSH #### [facility] [address] [place] [address] Dr. Igor Hayes SGOTon 10-22-2022 AST [Catalytic activity/Vol] 49 U/L Critically high 15-37 [facility] Comment on above: Performed By: #### A ST, BMP, TSH #### [facility] [address] [place] [address] Dr. Igor Hayes TSHon 10-22-2022 TSH 4.171 uIU/mL Critically high 0.358-3.74 0 [facility] Comment on above: Performed By: #### A ST, BMP, TSH #### [facility] [address] [place] [address] Dr. Igor Hayes US SINGLE QUAD RT UPPERon US SINGLE QUAD RT UPPER EXAM: US SINGLE QUAD RT UPPER HISTORY: . Liver function tests abnormal . COMPARISON: None. TECHNIQUE: De Jesus scale and color imaging was performed FINDINGS: The pancreas appears normal. The gallbladder is absent. Scanning of the liver demonstrates diffuse increased echogenicity of liver consistent with fatty infiltration of the liver. Liver is enlarged measuring 21 cm. Color-flow is noted in the portal and hepatic veins. Common bile duct is normal measuring 3 mm. Right kidney measures 10.7 x 5.2 x 4.4 cm. Color-flow is noted. No solid renal cortical masses or hydronephrosis is noted. No fluid is noted in the right upper quadrant. IMPRESSION: 1. The liver is enlarged measuring 21 cm. There is diffuse increased echogenicity of liver consistent with fatty infiltration of liver. 2. The gallbladder is absent. 3. The remainder of the right upper quadrant was unremarkable. Electronically authenticated by: STANFORD MORTENSEN Date: 2022-10-22 20:43 Normal [facility] XR CHEST 2 Von 10-22-2022 XR CHEST 2 V EXAM: Chest x-ray HISTORY: Atrial flutter COMPARISON: 01/19/2022 TECHNIQUE: Frontal and lateral chest FINDINGS: Heart and vascularity are unremarkable. Lungs are expanded and free of focal infiltrates. Tortuosity of the thoracic aorta is noted. Spondylosis of the spine is noted. IMPRESSION: No acute heart or lung disease identified. Electronically authenticated by: STANFORD MORTENSEN Date: 2022-10-22 20:38 Normal [facility] INSULINon 10-10-2022 Insulin 19.8 uIU/mL Normal 2.6-24.9 [facility] Comment on above: Performed By: #### A 1C #### [facility] [address] [place] [address] Dr. Igor Hayes CBC AUTO DIFFon 10-09-2022 BASO # 0.1 103/ul Normal 0.0-0.1 [facility] Comment on above: Performed By: #### A 1C #### [facility] [address] [place] [address] Dr. Igor Hayes Basophils/100 WBC (Bld) 1.7 % Normal 0.2-2.0 [facility] Comment on above: Performed By: #### A 1C #### [facility] [address] [place] [address] Dr. Igor Hayes EO # 0.2 103/ul Normal 0.0-0.7 [facility] Comment on above: Performed By: #### A 1C #### [facility] [address] [place] [address] Dr. Igor Hayes Eosinophils/100 WBC (Bld) 3.1 % Normal 0.9-7.0 [facility] Comment on above: Performed By: #### A 1C #### [facility] [address] [place] [address] Dr. Igor Hayes Erythrocyte distribution width (RBC) [Ratio] 12.9 % Normal 11.0-15.0 [facility] Comment on above: Performed By: #### A 1C #### [facility] [address] [place] [address] Dr. Igor Hayes Hematocrit (Bld) [Volume fraction] 45.5 % Normal 42.0-54.0 [facility] Comment on above: Performed By: #### A 1C #### [facility] [address] [place] [address] Dr. Igor Hayes Hemoglobin (Bld) [Mass/Vol] 15.1 g/dL Normal 14.0-18.0 [facility] Comment on above: Performed By: #### A 1C #### [facility] [address] [place] [address] Dr. Igor Hayes IG # 0.01 10e3/ul Normal 0.00-0.03 [facility] Comment on above: Performed By: #### A 1C #### [facility] [address] [place] [address] Dr. Igor Hayes IG % 0.2 % Normal 0.0-0.5 [facility] Comment on above: Performed By: #### A 1C #### [facility] [address] [place] [address] Dr. Igor Hayes LYMPH # 1.2 103/ul Normal 1.2-3.8 [facility] Comment on above: Performed By: #### A 1C #### [facility] [address] [place] [address] Dr. Igor Hayes Lymphocytes/100 WBC (Bld) 23.9 % Normal 20.5-60.0 [facility] Comment on above: Performed By: #### A 1C #### [facility] [address] [place] [address] Dr. Igor Hayes MANUAL DIFF REQ NO Normal [facility] Comment on above: Performed By: #### A 1C #### [facility] [address] [place] [address] Dr. Igor Hayes MCH (RBC) [Entitic mass] 29.3 pg Normal 25.9-34.0 [facility] Comment on above: Performed By: #### A 1C #### [facility] [address] [place] [address] Dr. Igor Hayes MCHC (RBC) [Mass/Vol] 33.2 g/dL Normal 29.9-35.2 [facility] Comment on above: Performed By: #### A 1C #### [facility] [address] [place] [address] Dr. Igor Hayes MCV (RBC) [Entitic vol] 88.2 fL Normal 80.0-94.0 [facility] Comment on above: Performed By: #### A 1C #### [facility] [address] [place] [address] Dr. Igor Hayes MONO # 0.6 103/ul Normal 0.3-0.8 [facility] Comment on above: Performed By: #### A 1C #### [facility] [address] [place] [address] Dr. Igor Hayes Monocytes/100 WBC (Bld) 12.3 % Critically high 1.7-12.0 [facility] Comment on above: Performed By: #### A 1C #### [facility] [address] [place] [address] Dr. Igor Hayes NEUT # 3.1 103/ul Normal 1.4-6.5 [facility] Comment on above: Performed By: #### A 1C #### [facility] [address] [place] [address] Dr. Igor Hayes Neutrophils/100 WBC (Bld) 58.8 % Normal 43.0-75.0 [facility] Comment on above: Performed By: #### A 1C #### [facility] [address] [place] [address] Dr. Igor Hayes Platelet mean volume (Bld) [Entitic vol] 10.0 fL Normal 9.5-13.5 [facility] Comment on above: Performed By: #### A 1C #### [facility] [address] [address] [address] Igor Hayes PLT 234 103/ul Normal 150-450 [facility] Comment on above: Performed By: #### A 1C #### [facility] [address] [place] [address] Dr. Igor Hayes RBC 5.16 106/ul Normal 4.70-6.10 [facility] Comment on above: Performed By: #### A 1C #### [facility] [address] [place] [address] Dr. Igor Hayes WBC 5.2 103/ul Normal 4.0-11.0 [facility] Comment on above: Performed By: #### A 1C #### [facility] [address] [place] [address] Dr. Igor Hayes GLYCOHEMOGLOBIN A1Con 2021 ADA RECOMMENDATION SEE BELOW Normal [facility] Comment on above: Result Comment: ADA RECOMMENDED LIMIT 4.0 - 6.0 ADA THERAPEUTIC TARGET < 7.0 ACTION SUGGESTED > 7.0 Performed By: #### A 1C #### [facility] [address] [place] [address] Dr. Igor Hayes Glucose [Mass/Vol] 123 mg/dL Normal [facility] Comment on above: Performed By: #### A 1C #### [facility] [address] [place] [address] Dr. Igor Hayes HbA1c (Bld) [Mass fraction] 5.9 % Normal 4.5-6.2 [facility] Comment on above: Performed By: #### A 1C #### [facility] [address] [place] [address] Dr. Igor Hayes OCC BLD IMMUNO SCREENon OCCULT BLOOD Negative Normal NEGATIVE [facility] Comment on above: Performed By: #### O BSCRN #### [facility] [address] [place] [address] Dr. Igor Hayes PROF 14(COMP METB)on 022 Albumin [Mass/Vol] 3.9 g/dL Normal 3.4-5.0 [facility] Comment on above: Performed By: #### U THUY, CMP #### [facility] [address] [address] [address] Igor Hayes Albumin/Globulin [Mass ratio] 1.0 {ratio} Normal [facility] Comment on above: Performed By: #### U THUY, CMP #### [facility] [address] [address] [address] Igor Hayes ALP [Catalytic activity/Vol] 45 U/L Critically low 46-116 [facility] Comment on above: Performed By: #### U THUY, CMP #### [facility] [address] [address] [address] Igor Hayes ALT [Catalytic activity/Vol] 83 U/L Critically high 16-63 [facility] Comment on above: Performed By: #### U THUY, CMP #### [facility] [address] [address] [address] Igor Hayes Anion gap [Moles/Vol] 11.6 mmol/L Normal [facility] Comment on above: Performed By: #### U THUY, CMP #### [facility] [address] [address] [address] Igor Hayes AST [Catalytic activity/Vol] 44 U/L Critically high 15-37 [facility] Comment on above: Performed By: #### U THUY, CMP #### [facility] [address] [address] [address] Igor Hayes Bilirubin [Mass/Vol] 0.7 mg/dL Normal 0.2-1.0 [facility] Comment on above: Performed By: #### U THUY, CMP #### [facility] [address] [address] [address] Igor Hayes Calcium [Mass/Vol] 8.8 mg/dL Normal 8.5-10.1 [facility] Comment on above: Performed By: #### U THUY, CMP #### [facility] [address] [address] [address] Igor Hayes Chloride [Moles/Vol] 102 mmol/L Normal 98-107 [facility] Comment on above: Performed By: #### U THUY, CMP #### [facility] [address] [address] [address] Igor Hayes CO2 [Moles/Vol] 29.1 mmol/L Normal 21.0-32.0 [facility] Comment on above: Performed By: #### U THUY, CMP #### [facility] [address] [address] [address] Igor Hayes Creatinine [Mass/Vol] 1.02 mg/dL Normal 0.70-1.30 [facility] Comment on above: Performed By: #### U THUY, CMP #### [facility] [address] [address] [address] Igor Hayes EGFR-AF COMORAN >60 Normal >=60 [facility] Comment on above: Performed By: #### U THUY, CMP #### [facility] [address] [address] [address] Igor Hayes EGFR-NON AF COMORAN >60 Normal >=60 [facility] Comment on above: Performed By: #### U THUY, CMP #### [facility] [address] [address] [address] Igor Hayes Globulin (S) [Mass/Vol] 3.9 g/dL Normal [facility] Comment on above: Performed By: #### U THUY, CMP #### [facility] [address] [address] [address] Igor Hayes Glucose [Mass/Vol] 132 mg/dL Critically high 74-106 [facility] Comment on above: Performed By: #### U THUY, CMP #### [facility] [address] [address] [address] Igor Hayes Potassium [Moles/Vol] 4.7 mmol/L Normal 3.5-5.1 [facility] Comment on above: Performed By: #### U THUY, CMP #### [facility] [address] [address] [address] Igor Hayes Protein [Mass/Vol] 7.8 g/dL Normal 6.4-8.2 [facility] Comment on above: Performed By: #### U THUY, CMP #### [facility] [address] [address] [address] Igor Hayes Sodium [Moles/Vol] 138 mmol/L Normal 136-145 [facility] Comment on above: Performed By: #### U THUY, CMP #### [facility] [address] [address] [address] Igor Hayes Urea nitrogen [Mass/Vol] 16.0 mg/dL Normal 7.0-18.0 [facility] Comment on above: Performed By: #### U THUY, CMP #### [facility] [address] [address] [address] Igor Hayes Urea nitrogen/Creatinine [Mass ratio] 15.7 mg/mg Normal [facility] Comment on above: Performed By: #### U THUY, CMP #### [facility] [address] [address] [address] Igor Hayes URIC ACID SERUMon 10-09-2022 Urate [Mass/Vol] 4.9 mg/dL Normal 3.5-7.2 [facility] Comment on above: Performed By: #### U THUY, CMP #### [facility] [address] [address] [address] Igor Hayes Aspartate Amino Transferaseo n 07-30-2022 AST [Catalytic activity/Vol] 44 U/L High 10-42 [facility] Comment on above: Order Comment: PT FA STED 12 HRS Performed By: #### T SH3, BMP, AST #### [facility] [address] Basic Metabolic Panelon 07-06 Anion gap [Moles/Vol] 13.1 mmol/L Normal 6.0-15.0 [facility] Comment on above: Order Comment: PT FA STED 12 HRS Performed By: #### T SH3, BMP, AST #### [facility] [address] Calcium [Mass/Vol] 9.4 mg/dL Normal 8.2-10.2 [facility] Comment on above: Order Comment: PT FA STED 12 HRS Performed By: #### T SH3, BMP, AST #### [facility] [address] [place] [address] [place] Chloride [Moles/Vol] 101 mmol/L Normal 95-114 [facility] Comment on above: Order Comment: PT FA STED 12 HRS Performed By: #### T SH3, BMP, AST #### [facility] [address] [place] [address] [place] CO2 [Moles/Vol] 27.5 mmol/L Normal 22.0-30.[address] [facility] Comment on above: Order Comment: PT FA STED 12 HRS Performed By: #### T SH3, BMP, AST #### [facility] [address] Creatinine [Mass/Vol] 1.03 mg/dL Normal 0.64-1.27 [facility] Comment on above: Order Comment: PT FA STED 12 HRS Performed By: #### T SH3, BMP, AST #### [facility] [address] Estimated GFR ( Mary > 60 [facility] Comment on above: Order Comment: PT FA STED 12 HRS Result Comment: GFR estimated reference range: According to KDOQI guidelines, <60 ml/min/1.73m2 is sufficient to diagnose a patient with chronic kidney disease. Performed By: #### T SH3, BMP, AST #### [facility] [address] [place] [address] Estimated GFR (Non- Am > 60 [facility] Comment on above: Order Comment: PT FA STED 12 HRS Performed By: #### T SH3, BMP, AST #### [facility] [address] [place] [address] [place] Glucose [Mass/Vol] 111 mg/dL High 70-100 [facility] Comment on above: Order Comment: PT FA STED 12 HRS Result Comment: [place] om Glucose Reference Range is dependent on time and content of last meal. Glucose of more than 200 mg/dL in a nonstressed, ambulatory subject supports the diagnosis of Diabetes Mellitus. ADA recommended reference range Performed By: #### T SH3, BMP, AST #### [facility] [address] [id number] [facility] Potassium [Moles/Vol] 4.6 mmol/L Normal 3.5-5.1 [facility] Comment on above: Order Comment: PT FA STED 12 HRS Performed By: #### T SH3, BMP, AST #### [facility] [address] [id number] [facility] Sodium [Moles/Vol] 137 mmol/L Normal 136-146 [facility] Comment on above: Order Comment: PT FA STED 12 HRS Performed By: #### T SH3, BMP, AST #### [facility] [address] Urea nitrogen [Mass/Vol] 15 mg/dL Normal 9-23 [facility] Comment on above: Order Comment: PT FA STED 12 HRS Performed By: #### T SH3, BMP, AST #### [facility] [address] No Panel Informationon 07-30 13.1\S\13.1 Normal 6.0-15.0 [facility] [address] DO Work Phone: 9.4\S\9.4 Normal 8.2-10.2 [facility] DO Work Phone: [phone] 27.5\S\27.5 Normal 22.0-30.0 [facility] 250 DO Work Phone: [phone] 101\S\101 Normal 95-114 [facility] 250 DO Work Phone: [phone] 4.6\S\4.6 Normal 3.5-5.1 [facility] 250 DO Work Phone: [phone] 137\S\137 Normal 136-146 [facility] 250 DO Work Phone: [phone] > [address] [facility] DO Work Phone: Comment on above: GFR estimated refere nce range: According to KDOQI guidelines, <60 ml/min/1.73m2 is sufficient to diagnose a patient with chronic kidney disease. 1.03\S\1.03 Normal 0.64-1.27 [facility] Work Phone: 15\S\15 Normal 9-23 [facility] Work Phone: 111\S\111 above high threshold 70-100 [facility] Work Phone: Comment on above: Random Glucose Refer ence Range is dependent on time and content of last meal. Glucose of more than 200 mg/dL in a nonstressed, ambulatory subject supports the diagnosis of Diabetes Mellitus. ADA recommended reference range 44\S\44 above high threshold 10-42 [facility] Work Phone: 3.34\S\3.34 Normal 0.45-5.33 [facility] Work Phone: Comment on above: PERFORMED BY:[facility] [place], [place] [phone] MEDICAL DIRECTORSTEVEN NASH M.D. Radiologyon 07-30-2022 XR Chest 2 Views Normal [facility] Work Phone: Thyroid Stimulating Hormoneo n 07-30-2022 TSH Qn 3.34 m[IU]/L Normal 0.45-5.33 [facility] Comment on above: Order Comment: PT FA STED 12 HRS Result Comment: PERF ORMED BY: [facility] [address] [place] [address] PATHOLOGIST DRUMS TEACHER STEVEN NASH M.D. Performed By: #### T SH3, BMP, AST #### [facility] [address] [place] [address] [place] XR chest 2V*on 07-30-2022 XR chest 2V* [facility] [place] [address] XRay Report Signed Patient: Remedios Magaña MR#: [id number] 4 : 1955 Acct:[id number] Age/Sex: 66 / M ADM Date: 07/30/22 Loc: RT Room: Type: [facility] Attending Dr: Marcus Recinos MD Copies to: Marcus Recinos MD, [facility] Ordering Provider: Marcus Recinos MD, [facility] Date of Service: 07/30/22 XR/XR chest 2V*: Z79.899, I48.92 Chest 2 views CLINICAL HISTORY: High risk medication use. COMPARISON: Chest 04/26/2022 FINDINGS: Heart is normal in size. Lungs are clear. No free air. XR/XR chest 2V* IMPRESSION: NO ACUTE CARDIOPULMONARY ABNORMALITY. Impression dictated by: Walt Miller Jr., D.O.07/30/2022 1:46 PM Dictation Location: [place] [address] Transcribed By: [facility] 07/30/22 1346 Dictated By: Walt Miller Jr, DO 07/30/22 1346 Signed By: 07/30/22 1346 Normal [facility] Aspartate Amino Transferaseo n 04-26-2022 AST [Catalytic activity/Vol] 46 U/L High 10-42 [facility] Comment on above: Performed By: #### T SH3, AST, BMP #### [facility] [address] [place] [address] Basic Metabolic Panelon 04-05 Calcium [Mass/Vol] 9.5 mg/dL Normal 8.2-10.2 [facility] Comment on above: Performed By: #### T SH3, AST, BMP #### [facility] [address] [place] [address] [place] Chloride [Moles/Vol] 101 mmol/L Normal 95-114 [facility] Comment on above: Performed By: #### T SH3, AST, BMP #### [place] [address] [place] CO2 [Moles/Vol] 26.8 mmol/L Normal 22.0-30.[address] [facility] Comment on above: Performed By: #### T SH3, AST, BMP #### [facility] [address] [place] [address] [place] Creatinine [Mass/Vol] 1.05 mg/dL Normal 0.64-1.27 [facility] Comment on above: Performed By: #### T SH3, AST, BMP #### [facility] [address] [place] [address] [place] Estimated GFR ( Mary > 60 Normal [facility] Comment on above: Result Comment: GFR estimated reference range: According to KDOQI guidelines, <60 ml/min/1.73m2 is sufficient to diagnose a patient with chronic kidney disease. Performed By: #### T SH3, AST, BMP #### [facility] [address] Estimated GFR (Non- Am > 60 Normal [facility] Comment on above: Performed By: #### T SH3, AST, BMP #### [place] [address] [place] Glucose [Mass/Vol] 123 mg/dL High 70-100 [facility] Comment on above: Result Comment: [place] om Glucose Reference Range is dependent on time and content of last meal. Glucose of more than 200 mg/dL in a nonstressed, ambulatory subject supports the diagnosis of Diabetes Mellitus. ADA recommended reference range Performed By: #### T SH3, AST, BMP #### [facility] [address] [place] [address] [place] Potassium [Moles/Vol] 4.9 mmol/L Normal 3.5-5.1 [facility] Comment on above: Performed By: #### T SH3, AST, BMP #### [facility] [address] [place] [address] [place] Sodium [Moles/Vol] 138 mmol/L Normal 136-146 [facility] Comment on above: Performed By: #### T SH3, AST, BMP #### [facility] [address] [place] [address] [place] Urea nitrogen [Mass/Vol] 16 mg/dL Normal 9-23 [facility] Comment on above: Performed By: #### T SH3, AST, BMP #### [facility] [address] Creatinine and Glomerular fi ltration rate.predicted panel (S/P/Bld)Ordered By: Marcus Recinos on 04-26-2022 Creatinine [Mass/Vol] 1.05 mg/dL 0.64-1.27 [facility] Estimated glomerular filtrat ion rate (GFR) non- AmericanOrdered By: Marcus Recinos on 04-26-2022 GFR/1.73 sq M.predicted among non-blacks MDRD (S/P/Bld) [Vol rate/Area] > 60 mL/Min [facility] No Panel InformationOrdered By: Marcus Recinos on 04-26-2022 Estimated GFR () > 60 mL/Min [facility] Comment on above: GFR estimated refere nce range: According to KDOQI guidelines, <60 ml/min/1.73m2 is sufficient to diagnose a patient with chronic kidney disease. Pharmacy Creatinine Clearance (Chem N/A [facility] No Panel Informationon 04-26 9.5\S\9.5 Normal 8.2-10.2 [facility] 250 DO Work Phone: 26.8\S\26.8 Normal 22.0-30.0 [facility] 250 DO Work Phone: [phone] 101\S\101 Normal 95-114 [facility] 250 DO Work Phone: [phone] 4.9\S\4.9 Normal 3.5-5.1 [facility] 250 DO Work Phone: [phone] 138\S\138 Normal 136-146 [facility] 250 DO Work Phone: [phone] > [address] [facility] 250 DO Work Phone: [phone] Comment on above: GFR estimated refere nce range: According to KDOQI guidelines, <60 ml/min/1.73m2 is sufficient to diagnose a patient with chronic kidney disease. 1.05\S\1.05 Normal 0.64-1.27 [facility] 250 DO Work Phone: 16\S\16 Normal 9-23 [facility] 250 DO Work Phone: 123\S\123 above high threshold 70-100 [facility] 250 DO Work Phone: Comment on above: Random Glucose Refer ence Range is dependent on time and content of last meal. Glucose of more than 200 mg/dL in a nonstressed, ambulatory subject supports the diagnosis of Diabetes Mellitus. ADA recommended reference range 46\S\46 above high threshold 10-42 [facility] 250 DO Work Phone: 4.75\S\4.75 Normal 0.45-5.33 [facility] 250 DO Work Phone: Comment on above: PERFORMED BY:[facility] [place], [place] [phone] MEDICAL DIRECTORSTEVEN NASH M.D. Radiologyon 04-26-2022 XR Chest 2 Views Normal [facility] 250 DO Work Phone: Serum or plasma aspartate am inotransferase measurement (enzymatic activity/volume)Ordered By: Marcus Recinos on 04-26-2022 AST [Catalytic activity/Vol] 46 U/L 10-42 [facility] Serum or plasma calcium tiera urement (mass/volume)Ordered By: Marcus Recinos on 04-26-2022 Calcium [Mass/Vol] 9.5 mg/dL 8.2-10.2 [facility] Serum or plasma chloride marly surement (moles/volume)Ordered By: Marcus Recinos on 04-26-2022 Chloride [Moles/Vol] 101 mmol/L 95-114 [facility] Serum or plasma glucose tiera urement (mass/volume)Ordered By: Marcus Recinos on 04-26-2022 Glucose [Mass/Vol] 123 mg/dL 70-100 [facility] Comment on above: ADA recommended refe rence range Random Glucose Reference Range is dependent on time and content of last meal. Glucose of more than 200 mg/dL in a nonstressed, ambulatory subject supports the diagnosis of Diabetes Mellitus. Serum or plasma potassium me asurement (moles/volume)Ordered By: Velazquezliz Valeraim on 04-26-2022 Potassium [Moles/Vol] 4.9 mmol/L 3.5-5.1 [facility] Serum or plasma sodium measu rement (moles/volume)Ordered By: [facility] on 04-26-2022 Sodium [Moles/Vol] 138 mmol/L 136-146 [facility] Serum or plasma total carbon dioxide measurement (moles/volume)Ordered By: [facility] on 04-26-2022 CO2 [Moles/Vol] 26.8 mmol/L 22.0-30.[address] [facility] Serum or plasma urea nitroge n measurement (mass/volume)Ordered By: Marcus Recinos on 04-26-2022 Urea nitrogen [Mass/Vol] 16 mg/dL 07-27 [facility] TSH DL <= 0.005 mIU/L QnOrde red By: Marcus Recinos on 04-26-2022 TSH Qn 4.75 m[IU]/L 0.45-5.33 [facility] Thyroid Stimulating Hormoneo n 04-26-2022 TSH Qn 4.75 m[IU]/L Normal 0.45-5.33 [facility] Comment on above: Result Comment: PERF ORMED BY: [place] [address] PATHOLOGIST DRUMS TEACHER STEVEN NASH M.D. Performed By: #### T SH3, AST, BMP #### [address] XR chest 2V*on 04-26-2022 XR chest 2V* [facility] [address] [place] [address] [place] [address] XRay Report Signed Patient: Remedios Magaña MR#: [id number] 4 : 1955 Acct:[id number] Age/Sex: 66 / M ADM Date: 04/26/22 Loc: RT Room: Type: [facility] Attending Dr: Marcus Recinos MD Copies to: Marcus Recinos MD, [facility] Ordering Provider: Marcus Recinos MD, [facility] Date of Service: 04/26/22 XR/XR chest 2V*: I48.92,Z79.899 PA AND LATERAL CHEST: CLINICAL HISTORY: A. Fib. 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 COMPARISON: Chest 01/21/2022 FINDINGS: Heart is normal in size. Lungs are clear. No free air. Osseous structures demonstrate degenerative change. XR/XR chest 2V* IMPRESSION: NO ACUTE CARDIOPULMONARY ABNORMALITY. Impression dictated by: Walt Miller Jr., D.O.04/26/2022 1:38 PM Dictation Location: [place] [address] Transcribed By: [facility] 04/26/22 1338 Dictated By: Walt Miller Jr, DO 04/26/22 1337 Signed By: 04/26/22 1338 [facility] IntraOperative Documentson 0 04-25-2022 IntraOperative Documents [id number]:127 Normal [facility] Operative Reporton 2 Operative Report SURGERY DATE: 2021 PREOPERATIVE DIAGNOSES: 1. Nuclear sclerotic cataract, left eye 2. Intraoperative floppy iris syndrome, left eye POSTOPERATIVE DIAGNOSES: 1. Nuclear sclerotic cataract, left eye 2. Intraoperative floppy iris syndrome, left eye OPERATION: Complex cataract extraction with intraocular lens placement for the left eye ANESTHESIA: Topical ESTIMATED BLOOD LOSS: Zero COMPLICATIONS: None PROCEDURE: The patient was brought to the Operating Room in supine position. After proper identification, the left eye was prepped and draped in a sterile ophthalmic fashion. A paracentesis was created at the 5 o'clock position and approximately 1 cc of unpreserved Xylocaine was injected into the anterior chamber followed by Amvisc Plus. Using a 2.6 mm keratome blade, a clear corneal incision was created at the 3 o'clock limbus and Healon 5 was injected under the iris plane at the 9, 12 and 6 o'clock locations to tent this area up. A Malyugin ring measuring 6.25 mm was then inserted engaging the islets of the Malyugin ring with the iris at the 9, 6 and 12 o'clock locations. The trailing islet was engaged with the iris with the assistance of a Kuglen hook. Healon 5 was then injected over the iris/Malyugin ring complex to push it posteriorly and stabilize it. A cystotome was then used to begin a curvilinear capsulorrhexis that was continued for 360 degrees with Utrata forceps. Balanced salt solution on a 26 gauge cannula was injected beneath the anterior capsule to hydrodissect as well as hydrodelineate the lens. After ensuring mobility, phacoemulsification was performed in a conquer and divide type fashion. After all nuclear material had been removed from the eye, IA was introduced and all residual cortical material was cleaned up. Additional Amvisc Plus was injected into the posterior bag and a lens Model MX60 20.0 diopters was injected and dialed into position. After ensuring centration, the second handpiece instrument was used to disengage the islets of the Malyugin ring at the 3 and 9 o'clock locations. This was then removed from the eye with its farm instructor. IA was reintroduced into the anterior chamber and all residual Amvisc Plus and Healon 5 were removed from the eye. Balanced salt solution on a 30 gauge cannula was injected into the stroma of both the clear corneal incision as well as the paracentesis to hydrate the wounds. Additional balanced salt solution was injected into the anterior chamber to pressurize the eye to approximately 20-22 mmHg by finger tension. 0.3 cc of antibiotic was used to wash out the anterior chamber maintaining the pressure as above. Weck-Stacy sponges were used to check the wounds to be watertight and a shield was placed overtop. One drop of Iopidine, one drop of prednisolone acetate and one drop of ofloxacin were placed into the eye and the patient was sent to the Postoperative Area in satisfactory condition to follow up the following day for postoperative care. Abdoul Rutherford Dictated: 04/17/2022 [id number] Transcribed: 04/18/2022 [facility] Comment on above: Result Comment: Elec tronically Signed By: Annabella Hines DO.nicholas\Date and Time Signed: 04/25/22 17:09 EDT Office Visit (Cardiology)on 04-24-2022 Follow-up visit Diagnoses/Problems Assessed Atrial flutter (427.32) (I48.92) Benign essential hypertension (401.1) (I10) High risk medication use (V58.69) (Z79.899) Hyperlipidemia (272.4) (E78.5) Former smoker (V15.82) (Z87.891) QUIT IN 08/2021 Class 1 obesity with body mass index (BMI) of 30.0 to 30.9 in adult (278.00,V85.30) (E66.9,Z68.30) Orders Atrial flutter Start: Xarelto 20 MG Oral Tablet; Take 1 tablet by mouth daily IO EKG Electrocardiogram- 12 Lead; Status:Complete; Done: 24Apr2022 Class 1 obesity with body mass index (BMI) of 30.0 to 30.9 in adult Healthy Weight Tips; Status:Complete; Done: 24Apr2022 SocHx: Former smoker Tobacco Use Screening; Status:Complete; Done: 24Apr2022 Unlinked Stop: predniSONE 20 MG Oral Tablet Patient Instructions By signing my name below, I, Leslie Slade LPN, Scribe, attest that this documentation has been prepared under the direction and in the presence of Dr. Marcus Recinos MD. All medical record entries made by the Scribe were at my direction and personally dictated by me. I have reviewed the chart and agree that the record accurately reflects my personal performance of the history, physical exam, discussion and plan. Please bring all medicines, vitamins, and herbal supplements with you when you come to the office. Prescriptions will not be filled unless you are compliant with your follow up appointments or have a follow up appointment scheduled as per instruction of your physician. Refills should be requested at the time of your visit. Keep Amio testing as scheduled. Follow up in 6 months Chief Complaint S/P CARDIOVERSION. REMEDIOS MAGAÑA is being seen for a 2 month follow-up of. Patient is in the office with his for follow-up after recent cardioversion restoring normal sinus rhythm. EKG confirmed normal sinus rhythm he is currently on amiodarone with normal QTc interval. There has been no breakthrough events. Due to insurance coverage he will be switched from Eliquis to Xarelto. He quit smoking recently after many years of tobacco use and his examination today reveals evidence of COPD. He is not wheezing but has diminished breath sounds. His weight remains above target and its working progress. His blood pressure is under control. Assessment/recommendations : 1?history of atrial flutter status post successful cardioversion and maintaining sinus rhythm on amiodarone. Currently anticoagulated with Eliquis and will be switched to Xarelto due to insurance request 2?mild CAD with no interventions needed. We will continue on simvastatin 20 mg daily. And follow lipid profile 3?high risk medication with anticoagulation and amiodarone. Both will be followed closely. 4?macular degeneration followed by ophthalmology. 5?hyperlipidemia on statin therapy 6?COPD from history of excessive tobacco use in the past Surgical History Problems History of Appendectomy History of Cardiac catheterization History of Cardioversion History of Cataract surgery History of Cholecystectomy History of Hernia repair Current Meds Medication NameInstruction Albuterol Sulfate HFA 108 (90 Base) MCG/ACT Inhalation Aerosol SolutionINHALE 2 PUFFS BY MOUTH EVERY 4 HOURS NEEDED Amiodarone HCl - 200 MG Oral TabletTAKE 1 TABLET DAILY. Eliquis 5 MG Oral TabletTake 1 tablet twice daily Furosemide 40 MG Oral Tablettake one tablet as needed for weight gain of 3# or greater Metoprolol Tartrate 50 MG Oral TabletTAKE 1 TABLET DAILY. prednisoLONE Acetate 1 % Ophthalmic SuspensionINSTILL 1 DROP INTO AFFECTED EYE 4 TIMES A DAY DIRECTED predniSONE 20 MG Oral Tabletas directed, will complete next week PreserVision AREDS TABSTAKE 1 TABLET EVERY 12 HOURS. Protonix 40 MG Oral Tablet Delayed ReleaseTAKE 1 TABLET DAILY. Simvastatin 20 MG Oral TabletTAKE 1 TABLET DAILY. Spironolactone 25 MG Oral TabletTAKE 1/2 (ONE-HALF) TABLET BY MOUTH ONCE DAILY Tamsulosin HCl - 0.4 MG Oral CapsuleTAKE 1 CAPSULE Daily Vitamin B6 100 MG Oral TabletTAKE 1 TABLET DAILY DIRECTED. Allergies NonUrgent Cipro XR Adverse Reaction; Rash; Recorded By: Leticia Mi; 04/24/2022 2:18:43 PM Family History Mother Family history of Family history of malignant neoplasm of breast (V16.3) (Z80.3) Father Family history of Family history of hypertension (V17.49) (Z82.49) Sister Family history of migraine headaches (V17.2) (Z82.0) Brother Family history of cardiac pacemaker (V17.49) (Z82.49) Social History Problems Alcohol ingestion (V69.8) (Z78.9) DRINKS 6 BEERS A DAY Daily caffeine consumption 2 CUPS OF COFFEE DAILY Former smoker (V15.82) (Z87.891) QUIT IN 08/2021 No illicit drug use Review of Systems Constitutional: not feeling tired. Cardiovascular: no intermittent leg claudication and as noted in HPI. Respiratory: no cough and no shortness of breath. Gastrointestinal: no change in bowel habits and no blood in stools. Integumentary: no skin rashes. Neurologi (more content not included)... Normal [employer] Tobacco Screening.on 022 Adult depression screening assessment No [facility] y 250 DO Work Phone: Fall risk assessment a) No falls within the last year [facility] y 250 DO Work Phone: Tobacco use status CP b) No [facility] y 250 DO Work Phone: Coding Summary.on 04-23-2022 Coding Summary. CD:[id number] Gh0bWw +PGhlYWQ+TV5DPAOfK24voAEwm A3JJ0uHSD2CTOEWRZRTSW2JDR6 iqXK3ETweZ4XoakZm CilhrSStML24NYu6XUP8sLxqKS nklJ0vaUScS9y4PjOxJP01hF67 LLyaVDRwUiY1JzSiuzlnpIWb N5bwQtCykLYoPea+PHRhYmxlIH cnWXFfMIseFDXtXyJmsIbvSB7a Sq9eMGGyBLMedZpsnHOnHiXp n0tvRNPdFZbdFZ5afQipP1TrzC U5WJRfz0w3Xd10uUS+PHRkIHN0 sPokKNcww766FeHxn2gyABL2 tQKlNRblFLO3H99vu1A3NUMlNK SuIRG5fCK0wD6hrSnwewtcV6Jz dGHzEmA3NYL7wNXauS1ssOix buuxlB4uLtg+E84FQX3MKWXGPS 4LGwl3J2WkBcjxiQA+LW41LFYa YN25pGJszKYlf3qerIv0CpFb EUZvTPR5lQvgSNcbb5NaQOUsO2 9boIBne5G2LVCuzKwcwWZcRwGe rWG8jD5dATmplvfnh5mqbvwl Vvlgy9fenz95jP18E48uKOcmRE YtVXK0HFZgKDTlbYqbml5ioA2g Ii8+LQjjh0abm9koaXe8SmBc KJRmzxPwhDdhMUR1t1FqQe03W6 RusZjbn5VeHcq5ki58uWOqk3G9 zXW0NWikDQJpqO0vFMdqGvA9 VBHsDqQbhB49sNWsBTjgGe3sbI nmcTbgGJ1kEEUfkeprBHIniV0b XUGkuVAnwWuuTS9tCTSkipjl m247LhKjVAK9CTFfbATrA3CinO 5vQiNjXOKqQPLiG5IfxPRiPDol D883JKvlIkA4RARqcmUdH5Sa JZCcfBevHuK4s9R6Fg1Ap8Erzd ahREL8BNigZYK6IeOkSjYpFkJ8 N6IqVvt6SAFspYooXR6zX9Xk TEKkeunivacvyRM0MSYwMDVazT 01dYGcSAwqVv5hq9Q9n237QBPj JVEsdR56Yn9osVnsYQPooSNY wI3haaukc3fvacxfHbQhPDRyST f3EFw5MMWqfJcmSpCbKWI7ZiV3 UGG5sHGsjP1crZjjuduonW2c Oyc+N97htF3qHGY0HMO3oggwWI LgxdHaRR26ZX28L1PqJtcaeIZe bGU+UPVrnaObeKjxHB0rNlFo b7njf7MvXWlrX9JsGEJnJWfqKc z9QXHdYDV9sRV3pG3lNYWxHKvg f7X4rBI1Z6QodzVxta1st4lz EHAzOUydS74rzADnn0X9GCFhzA I3SRJsaKysEuVttC28Thd+PGNv jXqdh2NrTfysh6sgw8wevMh3 AeNiEGCwpqHlaDklZPE4o8WzDp 25E80vCZupRPMaRGXbEYHuKSBi aZdeli5ymU8rAu4+PGNvbCB3 xTN5xL5aHSRbQqL8JHsbV686Em TwoIPnSuitq2xdi3qnaWg2IbEs TZPdsyMabIgdCIX9h1XeQd92 F00lVPrjJRBeLEPlTYMlEYKyvG yjvn8xgL6xVc9+WD9sf5rsls44 jM66qPG+RNIsHHM9bUyxKUop EXTwxR7vVBumTuV7ZJTyKdBemV 15jLRoCQotRv8uuKquuYmmRD3t LKEyqakbd919GlUao5bmNZTw oJBhFDkzFSD0N94ac9G6EZQsTV AmYGW9qYB6vE9gdGbblbptrDId bKclcuGjzWnxRAwjYDcwF598 IHRvcDsnPlBhdGllbnQgTmFtZT q9V3AuKaz5VSTxfBapOP3roJCk MIdsHn5kcDbuoNplVP8qPGEz hjyzw162DxLyh0dfMVCqlMLuWZ xcWDF8G41cw4E0VUPtOZArUDN1 xJF3pG3usMaktdwccAAlwXbg gpMntCcaZWyaYHvzU425KELrwK huVjIarxVmRQOalJM2BU14NQ12 kKEsm8V0bEU5E2PkJHInzrfa ucdbuKA3XIUmATEcjJ89Fy7qgK unFg8mIATuYHU8EBMeiRLdS6Ad yK4bZcSbVPSrRJFaS6ExzDSo PXhkB696VQlzHwP9KYDfmqXaM5 TqECQdbMzhHxU8k7O1Rx6LX2C4 PQ74QI24uTByz1Q6yWW4G9Ja HIWozmjzqnubkTC8LPWrSKInkR 58Ki5jvYgjDl8zGRJoNWW2QNCr oCFxL2IxiT9aXeZwLQMwVZJt C8TtsAPiYHqiR179TQnhKoB0OB PeqqQhR3PmYLVpqImwIyV0i0R0 Pw3UOCx2VP92HN89aWToa4T9 yBA2M0SrPUCmpeqvipcybFN4MD JrJKGkhH26Ar8ndVzsOa9lIUAw UVC4LJCbvLCzT5LjoG3hIrHm XGQtXGKoR1GlnQFkOJndJ463ID vnWsS5OJVkksEiP7PgAITsjRdt ZwT8w0T0Cm9DKEZyOV78DUN7 iVX0HK43QS48H6AvNeewwAHtvP U+PHRhYmxlIHdpZHRoPScxMDAl QjRwgVwqJZ9kXy0iGWLgGAFm kQmxoLJxIaSzs0ynGBEwPAbjYD 7jiFqbO0ArcSK6CQRew6e0Nl71 G24aU7CldZO+BPWfeMO3xWR8 iF7xTiUuOrZ5NArlQ657BqXpoX LmTedfr7rpx8zvfVp0CzD9VJRu qkOukEylWHF6z2AkBt47R98i IHdpZHRoPSIxNSUiIHZhbGlnbj 4yyS3xXq3+HYNknHC6lWN6hW1l IwKsFxB1CUqoD954YrUtwPVq Zabno9qwt9xmzGw5HiMxPCEzcb ZeyZugUCX1k4OzOa17A4MvnNiv r5ChGwc2zm36mCUse7S7tMQ9 Y3QlRFTpeonxdYHixJmyWV5uBL EbjiwlZQKbuS3cVDIeP8v1CmMw CyQ6RQeuE8TgwxG7TYJehCLl KKmyOJH2K96xe2T6FXQgHLCoON Z2fGX0lO1nrSuyctjvnSXugObc nrYjeCaqSJowIPglC043OXOx sIeyOMTajP6bGODifZGcuXyhQV 5aMIWnsoixUvCDBIXTNNJEG0iJ BwFBHD16ZW82pVHgl4H2dYY3 A2KsZKTpocxviivpvNF8HUMiNP CuqI35vWGwRFzcOo3mb1S4q852 PZFsIXSfeZ78Me4wnYlmOVTx aOFTbL6njifof9ycpvewZtDmIU CdTJx2WVn0ZMRnxAzoFnBwTHO9 OmL1PCR9wMUjuI0zdHgqcnfo oM4zTbu+ZOMtQnkvAXk8BCobsZ Q+NVCdGCM7bWjaPUbnPBTgrZ4f IHMcZ0c0SuDcAyC3YCcvJ6Cr PSWzmvwiZu46gM0sUbZpMvD7GD tzS2KwpyI3FZQmmYVoMWosPQY4 O49pz1C6TOPxTDMoPLU3uCB1 vO8qzOrsrppjeMAhpHcucdGvwM iaWGzjIDtxJ445POAtwVxdTlY2 SJznYYFiRH73IG01dQKpj3K4 vLH2Y9BiNADbwtnibtwomXD5WL RzZIAozD84kDAaHFwfOs0zd7V1 v246HHJkCYVgiV30Oz3qlAma FGFokMVPqD9lnkafv1abaejkAh LyAULzNTo2EAb3HHJgyHbeIuMb KDY8OiL7VMB5rGLjzR4faWma esojwC2tBki+TWFsZTwvdGQ+PH YoGUH7eKjoCNuvJVHvfV6hNBAh N0a3EzPqHbL8QDjeI2XhZOWi bubqZi57mF4eRhNtAxV9WIleJ9 YwpwZ9QSOsbZZrNSqdIEY9Z06j p9I1TDUpORTuGKO2qHI6kO8t bGlnbjogbGVmdDsgdmVydGljYW uvXDqdK393XHWuaJkqKzUtFvAf IQAvwmnhD3EhUPYRPCdzD4Pj J1SfmJecqQO+LK05uk92U7ExXv euYfz6TVXbJZV5eUO3tJ0uGKRy BMana9L0tAP6D4HryjQkbb7p c3kwEMNgERuqW31dsZYmv2M9SP EhjYS3ROWtkDbyCuTnhY48Mdf+ IMSdwUooe1MsMgvex5rki2ov rIm9ZmZsBVFmsyBaeOtjADT2g8 PcIy44T97qMRlaWFDvVXStFJCq CVLxyExnwt5yhP2uRf2+PGNv zRN6zPD9nI3jDaVuOqF3GJznR2 92XpWyqWXvYwrjn3uoz1knwNw7 CqArNTYyhfOauZktPER1l6Ri Xb58E0WujOytl8AzKxv5di08qZ Osr6P9iPB4U1XzDVXfbtoybEAt rEqfJP1oYLStsctiSLVcpN4c INWuN5v6ZaAmNsG8BOtpC9Oqsc W9DAWalFOyQATctYVIlD8xyyyp l4kpogxiQxXzWVEgRQa4DYr2 LKQyiHcuPkPiPPH8BhJ2DAD4qH GmtB5hrFtyjvjmqA1mAji+UGh5 a8rdlKShZG3cqWK7LZ66OR79 nDZmh8Z5hAD5E1KgMYLrftpfzy xuaNK0IMBcGIEntV21Ls1mmGpp Hp7yZMKlGLP9GKXwqNQyE5Ma pN9zGwHeFHQfDYVuF9LrkCOzJE ysK964QInhTkF7XFAlpsRgV9Zj WUYpuUnoUlE4l7R2Bv7GQG30 IO07UJ68yYWin5X7yWW6E8PwDH SghmodvtetgZF1IMAjVUMjiM17 Hd9qyRokFv8wWUXkVHT0GFKk gNQxV0EkcN2wNhEeIKQbJFCcC2 RwvZSrXVedS575ZTflAaA8TJIz clBcP1VzYXMvcCpyQlS8x9C2 Gm5FQx35FS61AT36mZNoj7F4qV K9N1PcMEPgedtronibcYS2IMEy XPUpkJ19Ab7kgIaoPj5xALJw NFF6VBUesHTrW4YiwF0pCrFhDA IcDPTbF0FcvISiXCruH284BInv UpB4ADPqdmWxD7UzGAYhpOxm YyH7e5Y2Pt8NUOdmdpg2J4KkOm wvdHI+RH18XFIqTO33lWBurGYy j3xosIw6HqLrGHJjHNC2kJvf PSdi (more content not included)... Normal [facility] Main OR Intraoperative Recor don 04-20-2022 Main OR Intraoperative Record IntraOp Document Type FT Summary Primary Physician: Sarath Hines DO Finalized Date/Time: 04/20/22 15:11:53 Pt. Name: REMEDIOS MAGAÑA/Sex: 1955 Male Med Rec #: [id number] Physician: Sarath Hines DO Financial #: [id number] Pt. Type: A Room/Bed: Admit/Disch: 04/17/22 09:11:04 - 04/17/22 12:05:00 Institution: Case Times FT Entry 1 Patient Times In Room 04/17/22 11:20:00 Out Room 04/17/22 11:42:00 Procedure Times Start 04/17/22 11:26:00 Stop 04/17/22 11:40:00 Anesthesia Times Last Modified By: Kitty Traore RN 04/17/22 11:42:06 General Comments: 04/20/22 Chart opened to review and send charges [facility]oth CSFA Case Attendance FT Entry 1 Entry 2 Entry 3 Case Attendee Flora GAMBOA, Sarath Lutz ADMINISTRATION SPECIALIST, Mariya Acuña RN, Baron Riley Role Performed Surgeon - Primary Scrub - Primary Vocational Evaluator - Primary Time In 04/17/22 11:20:00 04/17/22 11:20:00 04/17/22 11:20:00 Time Out 04/17/22 11:42:00 04/17/22 11:42:00 04/17/22 11:37:00 Procedure CATARACT EXTRACTION W/ CATARACT EXTRACTION W/ CATARACT EXTRACTION W/ INTRAOCULAR LENS(Left) INTRAOCULAR LENS(Left) INTRAOCULAR LENS(Left) Comments Last Modified By: Kitty Traore RN, RN, Kitty Simmons RN 04/17/22 11:42:11 04/17/22 11:42:11 04/17/22 11:42:11 Entry 4 Case Attendee Kitty Traore RN Role Performed Vocational Evaluator - Primary Time In 04/17/22 11:20:00 Time Out 04/17/22 11:42:00 Procedure CATARACT EXTRACTION W/ INTRAOCULAR LENS(Left) Comments Last Modified By: Kitty Traore RN 04/17/22 11:42:11 Perioperative Protocols FT Pre-Care Text: Implements protective measures prior to operative or invasive procedure, confirms identity before the operative or invasive procedure, verifies operative procedure, surgical site, and laterality Entry 1 Procedure(s) CATARACT EXTRACTION W/ Patient Identity Birthday, ID Band INTRAOCULAR LENS(Left) Verified (select at Check, Patient least 2): Participation Consents / H and P HandP, Surgery/Procedure Operative Site Present Verified Consent Marking Verified Surgical Site Yes Laterality Verified Yes Verified Procedure Verified Yes Correct Patient Yes Position Verified Availability Equipment, Implant, Prep Dry n/a Verified (If Medication Applicable) PreOp Antibiotic No Time Out Sarath Hines DO, Given Natalia Lutz CST, Domenico Dumas RN, León Sloan RN, Kimberly Y Time Out Complete 04/17/22 11:25:00 Outcomes Met? Yes Last Modified By: Kitty Traore RN 04/17/22 11:27:17 Post-Care Text: The patient is free from signs and symptoms of injury caused by extraneous objects Allergy Information FT Pre-Care Text: Verifies allergies Entry 1 Allergies Reviewed? Yes Allergies Reviewed Self/Patient With Outcomes Met? Yes Last Modified By: Kitty Traore RN 04/17/22 11:27:40 Post-Care Text: The patient received appropriate medication(s) safely administered during the perioperative period Surgical Procedures FT Entry 1 Procedure Description Procedure CATARACT EXTRACTION W/ Modifiers Left INTRAOCULAR LENS IMPLANTATION Surgeon Description LEFT EYE COMPLEX CATARACT EXTRACTION W INTRAOCULAR LENS IMPLANTATION Primary Procedure Yes Primary Surgeon Sarath Hines DO Start 04/17/22 11:26:00 Stop 04/17/22 11:40:00 Anesthesia Type Local Surgical Service Ophthalmology Wound Class 1 - Clean Last Modified By: Kitty Traore RN 04/17/22 11:44:02 General Case Data FT Pre-Care Text: Classifies surgical wound, implements aseptic technique, initiates traffic control Entry 1 Case Information OR OR 3 FT Case Level Level 2 Wound Class 1 - Clean Specialty Ophthalmology Preop Diagnosis CATARCT LEFT EYE Postop Same As Preop Yes Postop Diagnosis CATARCT LEFT EYE Outcomes Met? Yes Last Modified By: Kitty Traore RN 04/17/22 11:27:51 Post-Care Text: The patient is free from signs and symptoms of infection Skin Assessment (Pre Procedure) FT Pre-Care Text: Implements protective measures to prevent skin/ tissue injury due to thermal or mechanical sources Evaluates for signs and symptoms of physical injury to skin and tissue Entry 1 Skin Integrity Dry, Warm, Unable to Skin Abnormality No Visualize Abnormality Location UNABLE TO VISUALIZE DUE Outcomes Met? Yes TO PATIENT PARTIALLY CLOTHED Last Modified By: Kitty Traore RN 04/17/22 11:28:47 Post-Care Text: The patient is free from signs and symptoms of injury caused by extraneous objects Patient Positioning FT Pre-Care Text: Identifies physical alterations that require additional precautions for procedure-specific positioning, verifies presence of prosthetics or corrective devices, positions the patient, evaluates the patient for signs and symptoms of injury as a result of positioning Entry 1 Procedure CATARACT EXTRACTION W/ Additional folded towel under head INTRAOCULAR L (more content not included)... Normal [facility] Discharge Instructionson Discharge Instructions [id number]#1.00CD:127 [facility] IntraOperative Documentson 0 04-18-2022 IntraOperative Documents [id number]#1.00CD:127 [facility] IntraOperative Documents [id number]#1.00CD:127 [facility] Preoperative Documentson Preoperative Documents [id number]#1.00CD:127 [facility] Consent for Treatmenton 04-04 Consent for Treatment [id number]#1.00CD:127 [facility] Inpatient Patient Summaryon 04-17-2022 Inpatient Patient Summary [place] [id number] [facility] Clinical Discharge Instructions PERSON INFORMATION Name: REMEDIOS MAGAÑA [facility]#:[id number] PHYSICIANS Admitting Physician: Sarath Hines DO Attending Physician: Sarath Hines DO PCP: Tirso Frausto MD Discharge Diagnosis: Cataract; Floppy iris syndrome Comment: PATIENT EDUCATION INFORMATION Instructions: Medication Leaflets: Follow up: With: Address: When: [address] [place] [address] ( ) [phone] [facility] (1) Within 1 to 2 days MEDICATION LIST Medications to Continue with No Changes Other Medications albuterol (Albuterol (Eqv-Proventil HFA) 90 mcg/inh inhalation aerosol) 2 Puffs Inhalation 4 times a day. amiodarone (amiodarone 200 mg Tab) 1 Tablets By Mouth every day., afib apixaban (Eliquis 5 mg oral tablet) 1 Tablets By Mouth 2 times a day. furosemide (furosemide 40 mg Tab) 1 Tablets By Mouth every day as needed Edema. metoprolol (metoprolol 50 mg ER Tab) 1 Tablets By Mouth every day. multivitamin with minerals (PreserVision AREDS oral capsule) 1 cap By Mouth every day. pantoprazole (Protonix 40 mg Tab-DR) 1 Tablets By Mouth every day. simvastatin (simvastatin 20 mg Tab) 1 Tablets By Mouth once a day (at bedtime). spironolactone (spironolactone 25 mg Tab) 1 Tablets By Mouth 2 times a day. tamsulosin (tamsulosin 0.4 mg Cap) 1 Capsules By Mouth every day. Comment: Normal [facility] Main OR Preoperative Recordo n 04-17-2022 Main OR Preoperative Record PreOp Document Type FT Summary Primary Physician: Sarath Hines DO Finalized Date/Time: 04/17/22 11:27:31 Pt. Name: REMEDIOS MAGAÑA/Sex: 1955 Male Med Rec #: [id number] Physician: Sarath Hines DO Financial #: [id number] Pt. Type: A Room/Bed: [place] [address] Admit/Disch: 04/17/22 09:11:04 - Institution: Case Times PreOp FT Pre-Care Text: Verifies consent for planned procedure, identifies individual values and wishes concerning care, includes family members in perioperative teaching Entry 1 Patient Times. In Pre Surgery 04/17/22 09:15:00 Out Pre Surgery 04/17/22 11:18:00 Outcomes Met? Yes Last Modified By: Kitty Traore RN 04/17/22 11:27:27 Post-Care Text: The patient participates in decisions affecting his or her perioperative plan of care Finalized By: Kitty Traore RN Document Signatures Signed By: Kitty Traore RN 04/17/22 11:27 Normal [facility] Outpatient Surgery Discharge Instructionon 04-17-2022 Outpatient Surgery Discharge Instruction [address] [address] Patient Discharge Instructions PERSON INFORMATION Name: REMEDIOS MAGAÑA Date of : 1955 Current Date: 04/17/2022 10:11:10 PHYSICIANS Admitting Physician: Sarath Hines DO Discharge Diagnosis: Cataract; Floppy iris syndrome REMEDIOS MAGAÑA has been given the following list of follow-up instructions, prescriptions, and patient education materials: PATIENT FOLLOW-UP INFORMATION Diet: Regular Call Your Doctor For: Severe pain at the operative site Wound Care Instructions: Remove dressing as instructed IF UNABLE TO CONTACT YOUR PHYSICIAN AND YOU FEEL IT IS AN EMERGENCY, GO TO THE NEAREST EMERGENCY ROOM OR CALL 911 I, REMEDIOS MAGAÑA, have received the attached patient education materials/instructions and have verbalized understanding: May we do a follow up call? Yes No I was present when discharge instructions were given ____ Patient Signature _ Date Clinican/Nurse Signature Date Follow up: With: Address: When: JOVANNA EDMONDS [address] [place] [phone] ( [phone] Business (1) Within 1 to 2 days Pharmacy Information: [facility] You may receive a survey from [employer] asking you to rate your care experience. Your feedback is important and will help us understand what we do well and how we can improve the quality of care we provide to you, your loved ones and our community. It?s an honor to serve you. Thank you for choosing [facility] HERE ARE THE MEDICATION CHANGES THAT OCCURRED DURING YOUR HOSPITAL STAY Medications to Continue with No Changes Other Medications albuterol (Albuterol (Eqv-Proventil HFA) 90 mcg/inh inhalation aerosol) 2 Puffs Inhalation 4 times a day. amiodarone (amiodarone 200 mg Tab) 1 Tablets By Mouth every day., afib apixaban (Eliquis 5 mg oral tablet) 1 Tablets By Mouth 2 times a day. furosemide (furosemide 40 mg Tab) 1 Tablets By Mouth every day as needed Edema. metoprolol (metoprolol 50 mg ER Tab) 1 Tablets By Mouth every day. multivitamin with minerals (PreserVision AREDS oral capsule) 1 cap By Mouth every day. pantoprazole (Protonix 40 mg Tab-DR) 1 Tablets By Mouth every day. simvastatin (simvastatin 20 mg Tab) 1 Tablets By Mouth once a day (at bedtime). spironolactone (spironolactone 25 mg Tab) 1 Tablets By Mouth 2 times a day. tamsulosin (tamsulosin 0.4 mg Cap) 1 Capsules By Mouth every day. PATIENT EDUCATION INFORMATION Instructions: Medication Leaflets: Normal [facility] Patient Education - Texton 0 04-17-2022 Patient Education - Text [facility] Progress Note-Physicianon Progress Note-Physician Patient: REMEDIOS MAGAÑA Age: 66 years Sex: Male : 1955 Associated Diagnoses: None Author: Sarath Hines DO Postoperative Information Date/ Time: 04/13/2022 11:43:00 Preoperative Diagnosis: Senile Cataract - OS, IFIS - OS . Postoperative Diagnosis: same . Procedure: Complex Cataract Extraction with IOL placement - OS. Anesthesia Method: Local. Performed by: Sarath Hines DO. Specimens Removed: none . Estimated Blood Loss: 0 ml. Complications: None. Normal [facility] Comment on above: Result Comment: Elec tronically Signed By: Sarath Hines DO\.br\Date and Time Signed: 04/17/22 11:43 EDT Consent for Procedure/Surger yon 04-12-2022 Consent for Procedure/Surgery [id number]#[id number]:127 Normal [facility] No Panel Informationon 03-27 135\S\135 below low threshold 136-146 [facility] [address] DO Work Phone: [phone] 4.7\S\4.7 Normal 3.5-5.1 [facility] [address] DO Work Phone: [phone] 99\S\99 Normal 95-114 [facility] Work Phone: [phone] 25.4\S\25.4 Normal 22.0-30.0 [facility] [address] DO Work Phone: [phone] Comment on above: PERFORMED BY:[place] [address] [place], [place] [id number] MEDICAL DIRECTORSTEVEN NASH M.D. Serum or plasma chloride marly surement (moles/volume)Ordered By: Marcus Recinos on 03-27-2022 Chloride [Moles/Vol] 99 mmol/L 95-114 [facility] Serum or plasma potassium me asurement (moles/volume)Ordered By: Marcus Recinos on 03-27-2022 Potassium [Moles/Vol] 4.7 mmol/L 3.5-5.1 [facility] Serum or plasma sodium measu rement (moles/volume)Ordered By: Marcus Recinos on 03-27-2022 Sodium [Moles/Vol] 135 mmol/L 136-146 [facility] Serum or plasma total carbon dioxide measurement (moles/volume)Ordered By: Marcus Recinos on 03-27-2022 CO2 [Moles/Vol] 25.4 mmol/L 22.0-30.[address] [facility] COVID-19 SOFIAOrdered By: Lincoln Recinos on 03-23-2022 SARS-CoV+SARS-CoV-2 (COVID-19) Ag IA.rapid Ql (Resp) Negative Negative [facility] Comment on above: This is a duplicate Larisa SARS Antigen (TYSON) result to be used for statistical tracking purpose only. Laboratory - Microbiology an d Antimicrobial susceptibilityon 03-23-2022 SARS-CoV-2 (COVID-19) RNA VERONIQUE+probe Ql (Unsp spec) [facility] y 250 DO Work Phone: No Panel InformationOrdered By: Marcus Recinos on 03-23-2022 SARS Antigen (LFIA) [facility] No Panel Informationon 03-23 Negative Normal Negative [facility] y 250 DO Work Phone: Comment on above: This is a duplicate Larisa SARS Antigen (TYSON) result to be used for statistical tracking purpose only.PERFORMED BY:[facility] [place], [place] [id number] MEDICAL DIRECTORSTEVEN NASH M.D. Covid-19 PCR (CVDTBH)on 03-04 SARS-CoV-2 (COVID-19) RNA VERONIQUE+probe Ql (Unsp spec) Not detected Normal NOT DETECTED [facility] Comment on above: Result Comment: This test is not yet approved or cleared by the [place] FDA. When there are no FDA-approved or cleared tests available, and other criteria are met, FDA can make tests available under an emergency access mechanism called an Emergency Use Authorization (EUA). The EUA for this test is supported by the [place] of Health and Human Service's (HHS's) declaration that circumstances exist to justify the emergency use of in vitro diagnostics for the detection and/or diagnosis of the virus that causes COVID-19. This EUA will remain in effect (meaning this test can be used) for the duration of the COVID-19 declaration justifying emergency of IVDs, unless it is terminated or revoked by FDA (after which the test may no longer be used). When diagnostic testing is negative, the possibility of a false negative should be considered in the context of a patient's recent exposures and the presence of clinical signs and symptoms consistent with SARS-CoV-2. Performed By: #### C VDTB #### [facility] [address] [place] [address] Dr. Igor Hayes INFLUENZA A AND B AGon 03-15 [facility] SEE BELOW Normal [facility] Comment on above: Result Comment: Nega tive for Flu A protein angiten. Infection due to Flu A cannot be ruled out. Flu A angiten in the sample may be below the detection limit of the test. Performed By: #### O BSCRN #### [facility] [address] [place] [address] Dr. Igor Hayes [facility] SEE BELOW Normal [facility] Comment on above: Result Comment: Nega tive for Flu B protein antigen. Infection due to Flu B cannot be ruled out. Flu B antigen in the sample may be below the detection limit of the test. Performed By: #### O BSCRN #### [facility] [address] [place] [address] Dr. Igor Hayes INFLUENZA A AG Negative Normal NEGATIVE SEE COMMENT [facility] Comment on above: Performed By: #### O BSCRN #### [facility] [address] [place] [address] Dr. Igor Hayes INFLUENZA B AG Negative Normal NEGATIVE SEE COMMENT [facility] Comment on above: Performed By: #### O BSCRN #### [facility] [address] [place] [address] Dr. Igor Hayes INTERNAL CONTROLS Within Normal Limits Normal Wi thin Normal Limits [facility] Comment on above: Performed By: #### O BSCRN #### [facility] [address] [place] [address] Dr. Igor Hayes Office Visit (Cardiology)on 02-13-2022 Follow-up visit Diagnoses/Problems Assessed Class 1 obesity with body mass index (BMI) of 30.0 to 30.9 in adult (278.00,V85.30) (E66.9,Z68.30) Former smoker (V15.82) (Z87.891) QUIT IN 08/2021 Benign essential hypertension (401.1) (I10) Hyperlipidemia (272.4) (E78.5) High risk medication use (V58.69) (Z79.899) Unspecified atrial flutter (427.32) (I48.92) Orders Benign essential hypertension, Unspecified atrial flutter Start: Metoprolol Succinate ER 100 MG Oral Tablet Extended Release 24 Hour; TAKE 1 TABLET ONCE DAILY Class 1 obesity with body mass index (BMI) of 30.0 to 30.9 in adult Healthy Weight Tips; Status:Complete - Retrospective Authorization; Done: [id number] Hyperlipidemia Renew: Simvastatin 20 MG Oral Tablet; TAKE 1 TABLET DAILY SocHx: Former smoker Tobacco Use Screening; Status:Complete; Done: [id number] Unspecified atrial flutter Start: Amiodarone HCl - 200 MG Oral Tablet; Take 1 tablet twice daily IO EKG Electrocardiogram- 12 Lead; Status:Complete; Done: [id number] Unlinked Stop: Digoxin 125 MCG Oral Tablet Stop: Enalapril Maleate 5 MG Oral Tablet Stop: Toprol XL 50 MG Oral Tablet Extended Release 24 Hour (Metoprolol Succinate ER) Patient Instructions By signing my name below, I, Yaquelin Painting LPN, Scribe, attest that this documentation has been prepared under the direction and in the presence of Dr. Marcus Recinos MD. All medical record entries made by the Tiarraibmitali were at my direction and personally dictated by me. I have reviewed the chart and agree that the record accurately reflects my personal performance of the history, physical exam, discussion and plan. Please bring all medicines, vitamins, and herbal supplements with you when you come to the office. Prescriptions will not be filled unless you are compliant with your follow up appointments or have a follow up appointment scheduled as per instruction of your physician. Refills should be requested at the time of your visit. EKG in 2 weeks Follow up in 2 months Chief Complaint REMEDIOS MAGAÑA is being seen for follow-up of a hospitalization for atrial fibrillation. Patient is in the office for follow after being seen recently at the hospital with atrial flutter of recent onset and dyspnea on exertion where he underwent diagnostic cardiac catheterization by Dr. Brandt Petit that demonstrated normal CAD. The cath report showed ejection fraction 35% but the echocardiogram which I read read ejection fraction 55%. The patient has macular degeneration being cared for by ophthalmology. He has been on anticoagulation with Eliquis and rate control with metoprolol. He remains tachycardic with a heart rate just over 100 bpm. He has no side effect of medications. He denies orthopnea PND or lower extremity edema. His medical therapy was reviewed and the findings of cardiac catheterization and recent admission was discussed with the patient and his daughter. Apart from irregularly irregular rhythm and mild obesity his physical examination was unremarkable. Assessment/recommendations : 1?recent onset atrial flutter with slow rapid ventricular response. We will increase metoprolol up to 200 mg daily and continue the Eliquis. Patient has been anticoagulated long enough to initiate therapy with amiodarone 200 mg twice daily trying to restore normal sinus rhythm. ECG will be done in next few days and based on the results decide on schedule cardioversion if necessary. Avoid hypotension and since his echocardiogram showed normal ejection fraction for the time being I will eliminate the enalapril. 2?mild CAD with no interventions needed. We will continue on simvastatin 20 mg daily. And follow lipid profile 3?high risk medication with Eliquis and amiodarone. Both will be followed closely. 4?macular degeneration followed by ophthalmology. Surgical History Problems History of Appendectomy History of Cholecystectomy History of Hernia repair Current Meds Medication NameInstruction Digoxin 125 MCG Oral TabletTAKE 1 TABLET DAILY. Eliquis 5 MG Oral TabletTake 1 tablet twice daily Enalapril Maleate 5 MG Oral TabletTAKE 1 TABLET DAILY. Furosemide 40 MG Oral TabletTAKE 1 TABLET DAILY DIRECTED. PreserVision AREDS TABSTAKE 1 TABLET EVERY 12 HOURS. Protonix 40 MG Oral Tablet Delayed ReleaseTAKE 1 TABLET DAILY. Simvastatin 20 MG Oral TabletTAKE 1 TABLET DAILY. Spironolactone 25 MG Oral TabletTAKE 1/2 (ONE-HALF) TABLET BY MOUTH ONCE DAILY Tamsulosin HCl - 0.4 MG Oral CapsuleTAKE 1 CAPSULE Daily Toprol XL 50 MG Oral Tablet Extended Release 24 HourTAKE 1 TABLET DAILY. Vitamin B6 100 MG Oral TabletTAKE 1 TABLET DAILY DIRECTED. Allergies Medication No Known Drug Allergies Recorded By: Davida Coleman; 02/13/2022 12:57:37 PM Social History Problems Alcohol ingestion (V69.8) (Z78.9) DRINKS 6 BEERS A DAY Daily caffeine consumption 2 CUPS OF COFFEE DAILY Former smoker (V15.82) (Z87.891) QUIT IN 08/2021 No illicit drug use Review of Systems Constitutio (more content not included)... Normal [employer] Tobacco Screening.on 022 Adult depression screening assessment No [facility] DO Work Phone: Fall risk assessment a) No falls within the last year [facility] DO Work Phone: Tobacco use status [facility] b) No [facility] DO Work Phone: Glucose Glucometer (BldC) [M ass/Vol]Ordered By: Jin Berkowitz on 01-23-2022 Glucose [Mass/Vol] 155 mg/dL [facility] Comment on above: Random Glucose Refer ence Range is dependent on time and content of last meal. Glucose of more than 200 mg/dL in a nonstressed, ambulatory subject supports the diagnosis of Diabetes Mellitus. Activated partial thrombopla stin time (aPTT) in platelet poor plasma by coagulation aOrdered By: Ama Morrison on 01-22-2022 aPTT Coag (PPP) [Time] 71.1 s 25.1-36.5 [facility] Creatinine and Glomerular fi ltration rate.predicted panel (S/P/Bld)Ordered By: Ama Morrison on 01-22-2022 Creatinine [Mass/Vol] 1.04 mg/dL 0.64-1.27 [facility] Estimated glomerular filtrat ion rate (GFR) non- AmericanOrdered By: Ama Morrison on 01-22-2022 GFR/1.73 sq M.predicted among non-blacks MDRD (S/P/Bld) [Vol rate/Area] > 60 mL/Min [facility] No Panel InformationOrdered By: Jin Berkowitz on 01-22-2022 Bedside Glucose Comment Glu2: cleaned meter [facility] No Panel InformationOrdered By: Ama Morrison on 01-22-2022 Estimated GFR () > 60 mL/Min [facility] Comment on above: GFR estimated refere nce range: According to KDOQI guidelines, <60 ml/min/1.73m2 is sufficient to diagnose a patient with chronic kidney disease. Pharmacy Creatinine Clearance (Chem 82.75 [facility] Serum or plasma calcium tiera urement (mass/volume)Ordered By: Ama Morrison on 01-22-2022 Calcium [Mass/Vol] 9.4 mg/dL 8.2-10.2 [facility] Serum or plasma chloride marly surement (moles/volume)Ordered By: Ama Morrison on 01-22-2022 Chloride [Moles/Vol] 99 mmol/L 95-114 [facility] Serum or plasma glucose tiera urement (mass/volume)Ordered By: Ama Morrison on 01-22-2022 Glucose [Mass/Vol] 117 mg/dL 70-100 [facility] Comment on above: ADA recommended refe rence rangeRandom Glucose Reference Range is dependent on time and content of last meal. Glucose of more than 200 mg/dL in a nonstressed, ambulatory subject supports the diagnosis of Diabetes Mellitus. ADA recommended refe rence range Random Glucose Reference Range is dependent on time and content of last meal. Glucose of more than 200 mg/dL in a nonstressed, ambulatory subject supports the diagnosis of Diabetes Mellitus. Serum or plasma potassium me asurement (moles/volume)Ordered By: Ama Morrison on 01-22-2022 Potassium [Moles/Vol] 4.6 mmol/L 3.5-5.1 [facility] Serum or plasma sodium measu rement (moles/volume)Ordered By: Ama Morrison on 01-22-2022 Sodium [Moles/Vol] 139 mmol/L 136-146 [facility] Serum or plasma total carbon dioxide measurement (moles/volume)Ordered By: Ama Morrison on 01-22-2022 CO2 [Moles/Vol] 29.5 mmol/L 22.0-30.[address] [facility] Serum or plasma urea nitroge n measurement (mass/volume)Ordered By: Ama Morrison on 01-22-2022 Urea nitrogen [Mass/Vol] 17 mg/dL 9-23 [facility] Basophils Auto (Bld) [#/Vol] Ordered By: Pola Anders on 01-21-2022 Basophils (Bld) [#/Vol] 0.1 10*3/uL 0.0-0.2 [facility] Basophils/100 WBC Auto (Bld) Ordered By: Pola Anders on 01-21-2022 Basophils/100 WBC (Bld) 1.2 % [facility] Blood hemoglobin measurement (mass/volume)Ordered By: Pola Anders on 01-21-2022 Hemoglobin (Bld) [Mass/Vol] 15.9 g/dL 13.0-17.0 [facility] Blood leukocytes automated c ount (number/volume)Ordered By: Pola Anders on 01-21-2022 WBC (Bld) [#/Vol] 4.9 10*3/uL 4.5-11.0 [facility] Eosinophils Auto (Bld) [#/Vo l]Ordered By: Pola Anders on 01-21-2022 Eosinophils (Bld) [#/Vol] 0.2 10*3/uL 0.0-0.45 [facility] Eosinophils/100 WBC Auto (Bl d)Ordered By: Pola Anders on 01-21-2022 Eosinophils/100 WBC (Bld) 3.1 % [facility] Erythrocyte distribution wid th Auto (RBC) [Ratio]Ordered By: Pola Anders on 01-21-2022 Erythrocyte distribution width (RBC) [Ratio] 13.4 % 12.0-14.8 [facility] Hematocrit Auto (Bld) [Volum e fraction]Ordered By: Pola Anders on 01-21-2022 Hematocrit (Bld) [Volume fraction] 46.7 % 38.8-50.0 [facility] Laboratory - Hematology and Cell countsOrdered By: Pola Anders on 01-21-2022 Nucleated RBC/100 WBC (Bld) [Ratio] 0.2 % 0-0.5 [facility] Lymphocytes Auto (Bld) [#/Vo l]Ordered By: Pola Anders on 01-21-2022 Lymphocytes (Bld) [#/Vol] 1.3 10*3/uL 1.00-4.8 [facility] Lymphocytes/100 WBC Auto (Bl d)Ordered By: Pola Martita on 01-21-2022 Lymphocytes/100 WBC (Bld) 26.4 % [facility] MCH Auto (RBC) [Entitic mass ]Ordered By: Pola Martita on 01-21-2022 MCH (RBC) [Entitic mass] 30.8 pg 27.5-35.2 [facility] MCHC Auto (RBC) [Mass/Vol]Or dered By: Pola Martita on 01-21-2022 MCHC (RBC) [Mass/Vol] 34.2 g/dL 32.5-35.6 [facility] MCV Auto (RBC) [Entitic vol] Ordered By: Pola Martita on 01-21-2022 MCV (RBC) [Entitic vol] 90.2 fL 83.5-101 [facility] Monocytes Auto (Bld) [#/Vol] Ordered By: Pola Martita on 01-21-2022 Monocytes (Bld) [#/Vol] 0.6 10*3/uL 0.0-0.8 [facility] Monocytes/100 WBC Auto (Bld) Ordered By: Pola Martita on 01-21-2022 Monocytes/100 WBC (Bld) 13.0 % [facility] Neutrophils Auto (Bld) [#/Vo l]Ordered By: Pola Martita on 01-21-2022 Neutrophils (Bld) [#/Vol] 2.8 10*3/uL 1.8-7.7 [facility] Neutrophils/100 WBC Auto (Bl d)Ordered By: Pola Martita on 01-21-2022 Neutrophils/100 WBC (Bld) 56.3 % [facility] Platelet mean volume Auto (B ld) [Entitic vol]Ordered By: Pola Martita on 01-21-2022 Platelet mean volume (Bld) [Entitic vol] 9.2 fL 6.6-10.1 [facility] Platelets Auto (Bld) [#/Vol] Ordered By: Pola Martita on 01-21-2022 Platelets (Bld) [#/Vol] 176 10*3/uL 150-450 [facility] RBC Auto (Bld) [#/Vol]Ordere d By: Pola Anders on 01-21-2022 RBC (Bld) [#/Vol] 5.18 10*6/uL 3.90-5.60 [facility] Cholesterol [Mass/volume] in Serum or PlasmaOrdered By: Pola Anders on 01-20-2022 Cholesterol [Mass/Vol] 155 mg/dL 140-200 [facility] Comment on above: Chol less than 200 m g/dl low riskChol 201-239 mg/dl borderline riskChol 240 mg/dl and greater high risk Chol less than 200 m g/dl low risk Chol 201-239 mg/dl borderline risk Chol 240 mg/dl and greater high risk Cholesterol in LDL Calc [Mas s/Vol]Ordered By: Pola Anders on 01-20-2022 Cholesterol in LDL [Mass/Vol] 82 mg/dL 0-100 [facility] Comment on above: LDL ATP III CLASSIFI CATIONLDL less than 100 mg/dL OptimalLDL 100-129 mg/dL Near or above optimalLDL 130-159 mg/dL Borderline highLDL 160-189 mg/dL HighLDL greater than 189 mg/dL Very high LDL ATP III CLASSIFI CATION LDL less than 100 mg/dL Optimal LDL 100-129 mg/dL Near or above optimal LDL 130-159 mg/dL Borderline high LDL 160-189 mg/dL High LDL greater than 189 mg/dL Very high Cholesterol in VLDL Calc [Ma ss/Vol]Ordered By: Pola Anders on 01-20-2022 Cholesterol in VLDL [Mass/Vol] 31 mg/dL [facility] Glucose mean value [Mass/vol ume] in Blood Estimated from glycated hemoglobinOrdered By: Pola Anders on 01-20-2022 Average glucose Estimated from glycated hemoglobin (Bld) [Mass/Vol] 140 mg/dL [facility] Hemoglobin A1c percentageOrd ered By: Pola Anders on 01-20-2022 HbA1c (Bld) [Mass fraction] 6.5 % 4.3-5.6 [facility] Comment on above: Increased risk for d iabetes: 5.7 - 6.4diabetes: >6.4glycemic control for adults with diabetes: <7.0 Increased risk for d iabetes: 5.7 - 6.4 diabetes: >6.4 glycemic control for adults with diabetes: <7.0 Laboratory - CoagulationOrde red By: Pola Anders on 01-20-2022 PT Coag (PPP) [Time] 15.6 s 9.0-12.9 [facility] Platelet poor plasma interna tional normalized ratio (INR) by coagulation assay (relatOrdered By: Pola Anders on 01-20-2022 INR Coag (PPP) [Relative time] 1.4 {INR} [facility] Comment on above: INR Therapeutic Rang e A) Pre- and Peroperative OAT started two weeks before surgery. NOT HIP SURGERY: 1.5 - 2.5 HIP SURGERY: 2 - 3B) Primary and secondary prevention of venous THROMBOSIS: 2 - 3C) Active venous thrombosis, pulmonary embolismand prevention of recurrent venous thrombosis: 2 - 3D) Prevention of arterial thromboembolismincluding patients with mechanical heart valves: 3 - 4.5 INR Therapeutic Rang e A) Pre- and Peroperative OAT started two weeks before surgery. NOT HIP SURGERY: 1.5 - 2.5 HIP SURGERY: 2 - 3 B) Primary and secondary prevention of venous THROMBOSIS: 2 - 3 C) Active venous thrombosis, pulmonary embolism and prevention of recurrent venous thrombosis: 2 - 3 D) Prevention of arterial thromboembolism including patients with mechanical heart valves: 3 - 4.5 Serum or plasma high density lipoprotein (HDL) cholesterol measurementOrdered By: Pola Anders on 01-20-2022 Cholesterol in HDL [Mass/Vol] 41 mg/dL 29-71 [facility] Comment on above: HDL CHOL ATP-III CLA SSIFICATION Cardiovascular RiskHDL > or equal to 60 mg/dL LOWHDL < 40 mg/dL HIGH HDL CHOL ATP-III CLA SSIFICATION Cardiovascular Risk HDL > or equal to 60 mg/dL LOW HDL < 40 mg/dL HIGH Serum or plasma total choles terol/high density lipoprotein (HDL) cholesterol mass ratOrdered By: Pola Anders on 01-20-2022 Cholesterol.total/Ch olesterol in HDL [Mass ratio] 3.8 {ratio} [facility] Triglyceride [Mass/volume] i n Serum or PlasmaOrdered By: Pola Anders on 01-20-2022 Triglyceride [Mass/Vol] 158 mg/dL 35-149 [facility] Comment on above: TRIG ATP III CLASSIF ICATIONTRIG less than 150 mg/dL NormalTRIG 150-199 mg/dL Borderline highTRIG 200-500 mg/dL High TRIG greater than 500 mg/dL Very highStandard traceable to the Center for Disease Conrtrol and Prevention (CDC) test method. TRIG ATP III CLASSIF ICATION TRIG less than 150 mg/dL Normal TRIG 150-199 mg/dL Borderline high TRIG 200-500 mg/dL High TRIG greater than 500 mg/dL Very high Standard traceable to the Center for Disease Conrtrol and Prevention (CDC) test method. Troponin I.cardiac [Mass/vol ume] in Serum or Plasma by High sensitivity methodOrdered By: Ama Morrison on 01-20-2022 Troponin I.cardiac High sensitivity method [Mass/Vol] 7 pg/mL 0-20 [facility] Vital Signs Date Time Vital Sign Value Performing Clinician Facility 12-04-2023 09:03-0500 Body height 182.9 cm Marcus Recinos MD Work Phone: [facility] 12-04-2023 09:03-0500 Body mass index (BMI) [Ratio] 31.46 kg/m2 Marcus Recinos MD Work Phone: [facility] 12-04-2023 09:03-0500 Body weight 105.23 kg Marcus Recinos MD Work Phone: [facility] 12-04-2023 09:03-0500 Diastolic blood pressure 72 mm[Hg] Marcus Recinos MD Work Phone: [facility] 12-04-2023 09:03-0500 Heart rate 61 /min Marcus Recinos MD Work Phone: [facility] 12-04-2023 09:03-0500 Systolic blood pressure 118 mm[Hg] Marcus Recinos MD Work Phone: [facility] 02-08-2023 10:42-0400 Body height 182.88 cm Tirso M Hoy Work Phone: [facility] [address] DO Work Phone: 02-08-2023 10:42-0400 Body mass index (BMI) [Ratio] 30.65 kg/m2 Tirso Miguel Hoy Work Phone: [facility] [address] DO Work Phone: 02-08-2023 10:42-0400 Body surface area Derived from formula 2.24 m2 Tirso Rivera Hoy Work Phone: [facility] 250 DO Work Phone: 02-08-2023 10:42-0400 Body weight 102.51 kg Tirso Rivera Hoy Work Phone: [facility] 250 DO Work Phone: 02-08-2023 10:42-0400 Diastolic blood pressure 83 mm[Hg] Tirso Rivera Hoy Work Phone: [facility] DO Work Phone: 02-08-2023 10:42-0400 Heart rate 54 /min Tirso Rivera Hoy Work Phone: [facility] 250 DO Work Phone: 02-08-2023 10:42-0400 Systolic blood pressure 128 mm[Hg] Tirso Rivera Hoy Work Phone: [facility] DO Work Phone: 11-08-2022 11:01-0500 Body height 182.88 cm Tirso Miguel Hoy Work Phone: [facility] DO Work Phone: 11-08-2022 11:01-0500 Body mass index (BMI) [Ratio] 30.92 kg/m2 Tirso Miguel Hoy Work Phone: [facility] DO Work Phone: 11-08-2022 11:01-0500 Body surface area Derived from formula 2.25 m2 Tirso M Hoy Work Phone: [facility] [facility] DO Work Phone: 11-08-2022 11:01-0500 Body weight 103.42 kg Tirso M Hoy Work Phone: [facility] [facility] DO Work Phone: 11-08-2022 11:01-0500 Diastolic blood pressure 72 mm[Hg] Tirso M Hoy Work Phone: [facility] DO Work Phone: 11-08-2022 11:01-0500 Heart rate 49 /min Tirso M Hoy Work Phone: [facility] DO Work Phone: 11-08-2022 11:01-0500 Systolic blood pressure 110 mm[Hg] Tirso M Hoy Work Phone: [facility] [facility] 250 DO Work Phone: 04-24-2022 14:21-0400 Body height 182.88 cm Tirso M Hoy Work Phone: [facility] 250 DO Work Phone: 04-24-2022 14:21-0400 Body mass index (BMI) [Ratio] 30.38 kg/m2 Tirso M Hoy Work Phone: [facility] DO Work Phone: 04-24-2022 14:21-0400 Body surface area Derived from formula 2.24 m2 Tirso M Hoy Work Phone: [facility] DO Work Phone: 04-24-2022 14:21-0400 Body weight 101.61 kg Tirso M Hoy Work Phone: [facility] [facility] DO Work Phone: 04-24-2022 14:21-0400 Diastolic blood pressure 80 mm[Hg] Tirso Rivera Hoy Work Phone: [facility] DO Work Phone: 04-24-2022 14:21-0400 Heart rate 51 /min Tirso Miguel Hoy Work Phone: [facility] DO Work Phone: 04-24-2022 14:21-0400 Systolic blood pressure 118 mm[Hg] Tirso Miguel Hoy Work Phone: [facility] DO Work Phone: 04-17-2022 12:00-0400 Body temperature 97.34 [degF] Sarath Hines [facility] 04-17-2022 12:00-0400 Diastolic blood pressure 68 mm[Hg] Sarath Hines [facility] 04-17-2022 12:00-0400 Heart rate 50 /min Sarath Hines [facility] 04-17-2022 12:00-0400 SaO2% (BldA) [Mass fraction] 96 % Sarath Hines [facility] 04-17-2022 12:00-0400 Systolic blood pressure 100 mm[Hg] Sarath Hines [facility] 04-17-2022 11:36-0400 Blood Pressure Location Sarath Hines [facility] 04-17-2022 11:36-0400 BP/Pulse Patient Position Sarath Hines [facility] 04-17-2022 11:36-0400 Diastolic blood pressure 75 mm[Hg] Sarath Zahler [facility] 04-17-2022 11:36-0400 Heart rate 47 /min Sarath Crumhler [facility] 04-17-2022 11:36-0400 Respiratory rate 18 /min Sarath Crumhler [facility] 04-17-2022 11:36-0400 SaO2% (BldA) [Mass fraction] 94 % Sarath Zahler [facility] 04-17-2022 11:36-0400 Systolic blood pressure 109 mm[Hg] Sarath Zahler [facility] 04-17-2022 11:20-0400 Blood Pressure Location Sarath Flora [facility] 04-17-2022 11:20-0400 BP/Pulse Patient Position Sarath Crumkarener [facility] 04-17-2022 11:20-0400 Diastolic blood pressure 82 mm[Hg] Sarath Zakarener [facility] 04-17-2022 11:20-0400 Heart rate 47 /min Sarath Crumhler [facility] 04-17-2022 11:20-0400 Respiratory rate 18 /min Sarath Crumhler [facility] 04-17-2022 11:20-0400 SaO2% (BldA) [Mass fraction] 94 % Sarath Zahler [facility] 04-17-2022 11:20-0400 Systolic blood pressure 110 mm[Hg] Sarath Skylahler [facility] 04-17-2022 09:32-0400 Blood Pressure Location Sarath Hines [facility] 04-17-2022 09:32-0400 BP/Pulse Patient Position Sarath Hines [facility] 04-17-2022 09:32-0400 Mean blood pressure 76 mm[Hg] Sarath Crumkarentad [facility] 04-17-2022 09:31-0400 Body temperature 98.6 [degF] Sarath Crumkarentad [facility] 04-17-2022 09:31-0400 Mean blood pressure 79 mm[Hg] Sarath Crumkarentad [facility] 04-17-2022 09:31-0400 Respiratory rate 20 /min Sarath Crumkarentad [facility] 03-27-2022 09:00-0400 Inhaled oxygen flow rate 2 L/min MD Tirso Frausto Work Phone: [facility] 02-27-2022 12:16-0400 Body height 182.88 cm Tirso Frausto Work Phone: [facility] DO Work Phone: 02-27-2022 12:16-0400 Body mass index (BMI) [Ratio] 30.65 kg/m2 Tirsoloreta Gamezy Work Phone: [facility] DO Work Phone: 02-27-2022 12:16-0400 Body surface area Derived from formula 2.24 m2 Tirso Gamezy Work Phone: [facility] DO Work Phone: 02-27-2022 12:16-0400 Body weight 102.51 kg Tirso Rivera Hoy Work Phone: [facility] DO Work Phone: 02-27-2022 12:16-0400 Diastolic blood pressure 80 mm[Hg] Tirso Miguel Hoy Work Phone: [facility] [facility] DO Work Phone: 02-27-2022 12:16-0400 Heart rate 79 /min Tirso Miguel Hoy Work Phone: [facility] 250 DO Work Phone: 02-27-2022 12:16-0400 Systolic blood pressure 110 mm[Hg] Tirso M Hoy Work Phone: [facility] 250 DO Work Phone: 02-13-2022 13:01-0400 Body height 182.88 cm Tirso Miguel Hoy Work Phone: [facility] 250 DO Work Phone: 02-13-2022 13:01-0400 Body mass index (BMI) [Ratio] 30.11 kg/m2 Tirso Miguel Hoy Work Phone: [facility] 250 DO Work Phone: 02-13-2022 13:01-0400 Body surface area Derived from formula 2.23 m2 Tirso Miguel Hoy Work Phone: [facility] 250 DO Work Phone: 02-13-2022 13:01-0400 Body weight 100.7 kg Tirso Miguel Hoy Work Phone: [facility] 250 DO Work Phone: 02-13-2022 13:01-0400 Diastolic blood pressure 72 mm[Hg] Tirso M Hoy Work Phone: [facility] DO Work Phone: 02-13-2022 13:01-0400 Heart rate 104 /min Tirso Miguel Hoy Work Phone: [facility] 250 DO Work Phone: 02-13-2022 13:01-0400 Systolic blood pressure 104 mm[Hg] Tirso Frausto Work Phone: [facility] 250 DO Work Phone: 01-23-2022 08:00-0400 Body temperature 97.8 [degF] MD Tirso Frausto Work Phone: [facility] 01-23-2022 08:00-0400 Diastolic blood pressure 64 mm[Hg] MD Tirso Frausto Work Phone: [facility] 01-23-2022 08:00-0400 Heart rate 73 /min MD Tirso Frausto Work Phone: [facility] 01-23-2022 08:00-0400 Respiratory rate 18 /min MD Tirso Frausto Work Phone: [facility] 01-23-2022 08:00-0400 SaO2% (BldA) [Mass fraction] 93 % MD Tirso Frausto Work Phone: [facility] 01-23-2022 08:00-0400 Systolic blood pressure 100 mm[Hg] MD Tirso Frausto Work Phone: [facility] 01-23-2022 05:57-0400 Body weight 93.1 kg MD Tirso Frausto Work Phone: [facility] 01-22-2022 08:40-0400 Inhaled oxygen flow rate 2 L/min MD Tirso Frausto Work Phone: [facility] 01-20-2022 16:12-0400 55 1 Tirso Frausto Work Phone: [facility] 250 DO Work Phone: Comment on above: [id number] 01-20-2022 02:09-0400 Body height 182.88 cm MD Tirso Frausto Work Phone: [facility] 01-20-2022 02:09-0400 Body mass index (BMI) [Ratio] 29.9 kg/m2 MD Tirso Frausto Work Phone: [facility] Encounters Encounter Date Encounter Type Care Provider Facility Start: 12-04-2023 End: 12-04-2023 ambulatory MARCUS RECINOS [facility] Ambulatory Start: 12-04-2023 End: 12-04-2023 Office outpatient visit 25 minutes Marcus Recinos MD Work Phone: [facility] Comment on above: Atrial flutter, unsp ecified type (CMS/HCC) (Primary Dx); Benign essential hypertension; High risk medication use; Hyperlipidemia, unspecified hyperlipidemia type; Pulmonary emphysema, unspecified emphysema type (CMS/HCC); Coronary artery disease involving [place] coronary artery of [place] heart without angina pectoris; Obesity, Class I, BMI 30-34.9 Start: 05-06-2023 Patient encounter procedure Tirso Frausto Work Phone: [facility] 250 DO Work Phone: Start: 03-08-2023 End: 03-09-[address] TIRSO FRAUSTO . Facility:[facility]1 Start: 02-08-2023 Patient encounter procedure Tirso Frausto Work Phone: [facility] 250 DO Work Phone: Start: 02-08-[address] Darwin Perdomo Facility: Start: 02-05-2023 AUDIT Tirso Frausto Work Phone: [facility] 250 DO Work Phone: Start: 02-01-2023 End: 02-01-2023 ambulatory NOELLE VALERA Facility:[facility] Start: 01-22-2023 End: 01-22-2023 ambulatory Jina Rios Other [facility] Other Start: 01-22-2023 Telephone encounter Jina Rios [facility] Start: 01-21-2023 Telephone encounter Tirso Frausto Work Phone: [facility] 250 DO Work Phone: Start: 01-10-2023 End: 01-11-[address] MARCUS RECINOS Facility:[facility] Start: 01-01-2023 [facility] Olga Phipps [facility] Start: 01-01-2023 [facility] Start: 01-01-2023 End: 01-02-2023 ambulatory Marcus Recinos [facility] Other Start: 12-20-2022 Patient encounter procedure Tirso Frausto Work Phone: [facility] 250 DO Work Phone: Start: 12-10-2022 ([facility] Start: 12-10-2022 End: 12-10-2022 ambulatory Victoria Guanako Other [facility] Other Start: 11-26-2022 ([facility] Victoria [place] [facility] Start: 11-26-2022 End: 11-26-2022 ambulatory Victoria [place] Other [facility] Other Start: 11-15-2022 ([facility] Carlos A Salazar [facility] Start: 11-15-2022 End: 11-15-2022 ambulatory Carlos A Salazar Other [facility] Other Start: 11-14-2022 End: 11-15-[address] MARCUS RECINOS Facility:[facility]1 Start: 11-08-2022 Office outpatient vi sit 25 minutes Tirso Rivera Francosalome Work Phone: [facility] 250 DO Work Phone: Start: 11-08-2022 ambulatory Marcus Recinos Facility :[id number] Start: 11-02-2022 End: 11-03-[address] TIRSO FRAUSTO . Facility:[facility] Start: 11-01-2022 End: 11-01-2022 ambulatory Jina Rios Other [facility] Other Start: 11-01-2022 Telephone encounter Jina Rios [facility] Start: 10-23-2022 End: 10-24-[address] MARCUS RECINOS Facility:[facility] Start: 10-22-2022 End: 10-23-[address] ABHIJIT MIKE Facility:[facility] Start: 10-15-2022 Telephone encounter Tirso Frausto Work Phone: [facility] 250 DO Work Phone: Start: 10-10-2022 Patient encounter procedure Tirso Frausto Work Phone: [facility] 250 DO Work Phone: Start: 10-09-2022 End: 10-10-[address] TIRSO FRAUSTO . Facility:[facility]1 Start: 08-10-2022 Chart Update Tirso Frausto Work Phone: [facility] 250 DO Work Phone: Start: 07-30-2022 End: 07-30-2022 ambulatory Marcus Recinos Facility:[facility] Start: 07-06-2022 Patient encounter procedure Tirso Frausto Work Phone: [facility] 250 DO Work Phone: Start: 05-15-2022 Rx Renewal Tirso Frausto Work Phone: [facility] DO Work Phone: Start: 04-26-2022 Chart Update Tirso Frausto Work Phone: [facility] 250 DO Work Phone: Start: 04-26-2022 End: 04-26-2022 ambulatory Marcus Recinos Facility:[facility] Start: 04-26-2022 End: 04-26-2022 Patient encounter procedure MD Tirso Frausto Work Phone: [facility] Start: 04-24-2022 Office outpatient vi sit 25 minutes Tirso Frausto Work Phone: [facility] 250 DO Work Phone: Start: 04-24-2022 ambulatory Marcus Recinos Facility : Start: 04-19-2022 Rx Renewal Tirso Frausto Work Phone: [facility] 600 DO Work Phone: Start: 04-17-2022 End: 04-17-2022 Admission to same day surgery center Sarath jill [facility] Start: 03-28-2022 Chart Update Tirso Frausto Work Phone: [facility] DO Work Phone: Start: 03-27-[address] Tirso Frausto Facility:[id number] Start: 03-27-2022 SURGNON, Provider: Marcus Recinos, Status: Pen, Time: 9:00 AM Tirso Frausto Work Phone: [facility] DO Work Phone: Start: 03-27-2022 End: 03-27-2022 Admission to same day surgery center MD Tirso Frausto Work Phone: [facility]Elect[facility] Start: 03-26-2022 Chart Update Tirso Frausto Work Phone: [facility] 250 DO Work Phone: Start: 03-23-2022 End: 03-23-2022 Patient encounter procedure MD Tirso Frausto Work Phone: [facility] Start: 03-15-2022 End: 03-15-[address] TIRSO FRAUSTO . Facility: Start: 03-08-2022 Patient encounter procedure Tirso Rivera Lisbet Work Phone: [facility] 250 DO Work Phone: Start: 03-01-2022 Telephone encounter Tirso Rivera Lisbet Work Phone: [facility] 250 DO Work Phone: Start: 02-27-2022 ambulatory Marcus Recinos Facility : Start: 02-27-2022 Patient encounter procedure Tirso Rivera Lisbet Work Phone: [facility] 250 DO Work Phone: Start: 02-13-2022 Office outpatient vi sit 25 minutes Tirso Frausto Work Phone: [facility] 250 DO Work Phone: Start: 02-13-2022 ambulatory Marcus Recinos Facility : Start: 01-25-2022 End: 01-25-2022 Patient encounter procedure MD Tirso Frausto Work Phone: [facility] [address] Start: 01-20-2022 End: 01-23-2022 Evaluation and management of inpatient MD Tirso Frausto Work Phone: [facility] [place] [facility] Procedures Date Procedure Procedure Detail Performing Clinician Start: 12-04-2023 ECG 12-LEAD MARCUS RICHARD Start: 12-04-2023 Ecg routine ecg w/le ast 12 lds w/i&r Marcus Recinos MD Work Phone: Start: 10-09-[address] ABHIJIT Riley ISTED REQUEST Comment on above: Performed By: #### O BSCRN #### [facility] [address] [place] [address] Dr. 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 Appendectomy Tirso M Francoy Work Phone: Appendectomy Sarath Hines Cardiac catheterization Jim las M Hoy Work Phone: Cardioversion Tirso M Hoy Work Phone: Cataract surgery Tirso M H oy Work Phone: Hernia repair Tirso M Francoy Work Phone: Primary repair of um bilical hernia Sarath Hines Repair of ventral hernia Pablito Hines Plan of Treatment Date Care Activity Detail Author Start: 04-12-2031 Screening for malignant neoplasm of colon [facility] Start: 06-03-2024 End: 06-03-2024 Patient encounter procedure 06/03/2024 10:00 AM EDT Office Visit [facility] [address] [place] [address] Marcus Recinos MD [address] [place] [address] [facility] Start: 07-05-2023 Influenza vaccination Influenza Vaccine (#1) [facility] Start: 05-29-2023 FUV, Provider: Marcus Recinos, Status: Pen, Time: 9:30 AM FUV, Provider: Marcus Recinos, Status: Pen, Time: 9:30 AM [facility] 250 DO Work Phone: Start: 05-14-2023 FUV, Provider: Darwin Perdomo, Status: Pen, Time: 9:30 AM FUV, Provider: Darwin Perdomo, Status: Pen, Time: 9:30 AM [facility] 250 DO Work Phone: Start: 11-08-2022 FUV, Provider: Marcus Recinos, Status: Pen, Time: 10:40 AM FUV, Provider: Marcus Recinos, Status: Pen, Time: 10:40 AM -[facility] DO Work Phone: Start: 04-24-2022 FUV, Provider: Marcus Recinos, Status: Pen, Time: 2:10 PM FUV, Provider: Marcus Recinos, Status: Pen, Time: 2:10 PM [facility] 250 DO Work Phone: Start: 03-27-2022 SURGNONUH, Provider: Marcus Recinos, Status: Pen, Time: 9:00 AM SURGNONUH, Provider: Marcus Recinos, Status: Pen, Time: 9:00 AM -[facility] 250 DO Work Phone: Start: 02-27-2022 EKG, Provider: [employer] TESTING TECHNICIAN 1,[id number], Status: Pen, Time: 10:00 AM EKG, Provider: [employer] TESTING TECHNICIAN 1,[id number], Status: Pen, Time: 10:00 AM -[facility] DO Work Phone: Start: 2019 Abdominal aortic aneurysm screening Abdominal Aortic Aneurysm (AAA) Screening [facility] Start: 2004 Zoster Vaccines (1 of 2) Zoster Vaccines (1 of 2) [facility] Start: 1976 DTaP/Tdap/Td Vaccines (1 - Tdap) DTaP/Tdap/Td Vaccines (1 - Tdap) [facility] Start: 1972 Hepatitis C screening Hepatitis C Screening [facility] Start: 1960 Pneumococcal Vaccine: 65+ Years (1 - PCV) Pneumococcal Vaccine: 65+ Years (1 - PCV) [facility] Start: 04-30-1955 COVID-19 Vaccine (#1) COVID-19 Vaccine (#1) [facility] Start: 1954 Lipid panel Lipid Panel [facility] Start: 1954 Medicare Annual Wellness Visit Medicare Annual Wellness Visit (AWV) [facility] Start: 1954 Screening for malignant neoplasm of colon [facility] Start: 1954 Thyroid stimulating hormone measurement TSH Level [facility] Patient Education Cardiomyopathy (DC) Digoxin Enalapril Furosemide Metoprolol Spironolactone Atrial Flutter (DC) [facility] Work Phone: Patient referral [facility] Work Phone: Immunizations Immunization Date Immunization Notes Care Provider Fa cility NEGATED: Highlighted row has not occurred!01-05-2021 influenza virus vaccine, unspecified formulation Sarath Hines [facility] Payers Date Payer Category Payer Self-pay [id number] 2019 Medicare MEDICARE MEDICAR E PART A AND B [id number] 2019-Present [address] [place] [address] [id number] 2019 Private Health Insurance AETNA S UPPLEMENTAL AETNA SENIOR SUPPLEMENT [id number] 2019-Present [address] [place] [address] [id number] 1959 Medicare [id number] 1959 Private Health Insurance [facility] [id number] 1954 Unknown [id number] [id number] .2.356 1954 Unknown [id number] 2.16.840.1.955751.3.579 .2.356 1954 Unknown [id number] 2.16.840.1.225678.3.579 .2.356 1954 Unknown [id number] 2.16.840.1.667897.3.579 .2.356 1954 Unknown [id number] 2.16.840.1.659581.3.579 .2.356 1954 Unknown [id number] 2.16.840.1.396486.3.579 .2.356 1954 Unknown [id number] 2.16.840.1.009881.3.579 .2.593 1954 Unknown [id number] 2.16.840.1.732865.3.579 .2.593 1954 Unknown [id number] 2.16.840.1.747941.3.579 .2.593 1954 Unknown [id number] 2.16.840.1.749586.3.579 .2.593 1954 Unknown [id number] 2.16.840.1.509571.3.579 .2.593 1954 Unknown [id number] 2.16.840.1.444552.3.579 .2.593 1954 Unknown [id number] 2.16.840.1.508611.3.579 .2.593 1954 Unknown [id number] 2.16.840.1.931865.3.579 .2.593 1954 Unknown [id number] 2.16.840.1.425967.3.579 .2.593 1954 Unknown [id number] 2.16.840.1.921643.3.579 .2.593 1954 Unknown [id number] 2.16.840.1.400142.3.579 .2.1244 Unknown [id number] Unknown Unknown [id number] 2.16.840.1.838009.3.579 .2.531 Unknown [id number] 2.16.840.1.873427.3.579 .2.531 Unknown [id number] 2.16.840.1.429184.3.579 .2.531 Social History Date Type Detail Facility Start: 01-20-2022 End: 12-04-2023 Tobacco smoking status NHIS Ex-smoker (finding) [facility] Start: 12-04-2023 End: 09-30-2021 History of tobacco use [facility] Work Phone: Start: 1955 Sex Assigned At Male F [facility] Start: 12-04-2023 No illicit drug use No illicit drug use [facility] [facility] DO Work Phone: Comment on above: DRINKS 6 BEERS A DAY ; 2 CUPS OF COFFEE TANNER LY; QUIT IN 08/2021; Start: 04-20-2021 Tobacco smoking status Heavy t obacco smoker (finding) [facility] End: 11-04-2020 Tobacco smoking status Smoker (finding) [facility] Tobacco smoking status Never [facility] End: 11-04-2020 History of tobacco use Cigarette Smoker [facility] Work Phone: Start: 12-04-2023 Tobacco use and exposure Smokeless tobacco non-user [facility] Work Phone: Start: 12-04-2023 Alcohol intake Current drinke r of alcohol (finding) [facility] Work Phone: Start: 1955 Sex Assigned At Not on file U [facility] Work Phone: Start: 11-24-2023 End: 12-04-2023 Exposure to SARS-CoV-2 (event) Not sure [facility] Medical Equipment Procedure Code Equipment Code Equipment Origin al Text Equipment Identifier Dates CATARACT EXTRACT ION W/ INTRAOCULAR LENS Sarath Hines DO 04/17/22 Non Biological Eye L {[id number] [facility] Start: 04-17-2022 Goals Date Patient Goal Desired Activity /State Functional Status Date Assessment Result Facility 04-17-2022 Functional Status N/A [facility] 01-23-2022 Functional status Patient at Baseline [facility] Work Phone: Mental Status Date Assessment Result Facility 01-23-2022 Cognitive function Cognitive Sta tus Patient at Baseline [facility] Work Phone: Clinical Notes 01-20-2022 to 12-04-2023 Marcus Recinos MD - 12/04/2023 9:00 AM ESTPatient Instructions Note Date & Type Note Facility 12-04-2023 History of Presen t illness Narrative Subjective Remedios Magaña is a 68 y.o. male Chief Complaint Follow-up HPI Patient is in the office for follow-up for the problems noted below. Since he was last seen in the office back in May 2023 he has had no cardiac events but recently had URI for which his PCP Dr. Frausto has given him treatment with improvement. He is scheduled to have amiodarone surveillance testing this coming January. His weight has increased but has not dropped either. He maintains active lifestyle though. His examination was mostly remarkable for his weight and diminished breath sounds consistent with COPD. I reviewed with the patient his medications and he seem to tolerate that fairly well. His last lipid profile on the pravastatin showed LDL cholesterol around 70 mg/dL which is acceptable. He tolerated pravastatin better than simvastatin. ECG today demonstrated normal sinus rhythm with first-degree AV block. Assessment/recommendations: 1-history of atrial flutter with rapid ventricular response. Currently on metoprolol, amiodarone and Coumadin managed by the Coumadin clinic with therapeutic INR, no breakthrough atrial fibrillation. No changes are needed.. 2-mild CAD with no interventions needed. He is on aspirin and statin 3-high risk medication with Coumadin and amiodarone. Both will be followed closely. 4-advanced COPD due to heavy previous tobacco abuse. Patient utilizes inhaler therapy 5-hypertension on medical therapy under control. 6-class I obesity, encouraged the patient to work harder on losing weight with more aggressive diet. 7-hyperlipidemia, on statin therapy LDL cholesterol around 70 mg/dL on pravastatin Review of Systems Constitutional: Positive for malaise/fatigue. Respiratory: Positive for shortness of breath. All other systems reviewed and are negative. Visit Vitals BP 118/72 (BP Location: Right arm, Patient Position: Sitting) Pulse 61 Ht 1.829 m (6') Wt 105 kg (232 lb) BMI 31.46 kg/m Smoking Status Former BSA 2.31 m EKG done in office today Objective Physical Exam Constitutional: Appearance: Normal appearance. He is normal weight. HENT: Nose: Nose normal. Neck: Vascular: No carotid bruit. Cardiovascular: Rate and Rhythm: Normal rate. Pulses: Normal pulses. Heart sounds: Normal heart sounds. Pulmonary: Effort: Pulmonary effort is normal. Breath sounds: Decreased air movement present. Wheezing present. Abdominal: General: Bowel sounds are normal. Palpations: Abdomen is soft. Genitourinary: Rectum: Normal. Musculoskeletal: General: Normal range of motion. Cervical back: Normal range of motion. Right lower leg: No edema. Left lower leg: No edema. Skin: General: Skin is warm and dry. Neurological: General: No focal deficit present. Mental Status: He is alert. Psychiatric: Mood and Affect: Mood normal. Behavior: Behavior normal. Thought Content: Thought content normal. Judgment: Judgment normal. Current Medications Current Outpatient Medications: amiodarone (Pacerone) 200 mg tablet, TAKE 1 TABLET BY MOUTH EVERY DAY, Disp: 90 tablet, Rfl: 1 aspirin 81 mg EC tablet, Take 1 tablet (81 mg) by mouth., Disp: , Rfl: furosemide (Lasix) 40 mg tablet, Take 1 tablet (40 mg) by mouth if needed. For weight gain of 3#'s, Disp: , Rfl: pantoprazole (ProtoNix) 40 mg EC tablet, Take 1 tablet (40 mg) by mouth once daily in the morning. Take before meals., Disp: , Rfl: pravastatin (Pravachol) 40 mg tablet, Take 1 tablet (40 mg) by mouth once daily., Disp: , Rfl: spironolactone (Aldactone) 25 mg tablet, Take 0.5 tablets (12.5 mg) by mouth once daily., Disp: , Rfl: tamsulosin (Flomax) 0.4 mg 24 hr capsule, Take 1 capsule (0.4 mg) by mouth once daily., Disp: , Rfl: Ventolin HFA 90 mcg/actuation inhaler, Inhale 2 puffs every 4 hours if needed., Disp: , Rfl: vitamins A,C,G-oswh-xgcqef (PreserVision AREDS) 2,148 mcg-113 mg-45 mg-17.4mg tablet, Take 1 tablet by mouth every 12 hours., Disp: , Rfl: Xarelto 20 mg tablet, Take 1 tablet (20 mg) by mouth once daily in the evening. Take with meals., Disp: , Rfl: Assessment/Plan 1. Atrial flutter, unspecified type (CMS/HCC) Follow Up In Cardiology ECG 12 Lead 2. Benign essential hypertension Follow Up In Cardiology 3. High risk medication use 4. Hyperlipidemia, unspecified hyperlipidemia type 5. Pulmonary emphysema, unspecified emphysema type (CMS/HCC) 6. Coronary artery disease involving [place] coronary artery of [place] heart without angina pectoris 7. Obesity, Class I, BMI 30-34.9 documented in this encounter [facility] Work Phone: 12-04-2023 Instructions Leticia Mi LPN - 12/04/2023 9:00 AM EST Please bring all medicines, vitamins, and herbal supplements with you when you come to the office. Prescriptions will not be filled unless you are compliant with your follow up appointments or have a follow up appointment scheduled as per instruction of your physician. Refills should be requested at the time of your visit. Follow up 6 months Same meds Amio testing in January as scheduled documented in this encounter [facility] Work Phone: 01-01-2023 Evaluation note Encounter Date Diagnosis Assessment Notes Dec, Medication monitoring encounter (ICD-10 - Z51.81) Referring Provider: Marcus Recinos Diagnosis: Atrial Flutter INR Goal: 2-3 INR: 2.9 Warfarin Tablet Size: 4mg Saturday: 4mg Saturday: 4mg Saturday: 4mg Saturday: 4mg : 2mg Saturday: 4mg Saturday: 4mg Total Weekly Dose: 26mg Determining dose. Conctinue plan above. Follow-up in 3 weeks. Discussed signs and symptoms of bleeding, bruising and clots. Discussed when to seek emergency care. Seen by Olga Phipps PharmD, Funmilayo Velazquez PharmD Candidate [facility] Other 02-06-2023 Evaluation note* Encounter Date Diagnosis Assessment Notes Treatment Notes Treatment Clinical Notes Dec, Medication monitoring encounter (ICD-10 - Z51.81) Referring Provider: Marcus Recinos Diagnosis: Atrial Flutter INR Goal: 2-3 INR: 2.7 Warfarin Tablet Size: 4mg Saturday: 4mg Saturday: 4mg Saturday: 4mg Saturday: 4mg : 2mg Saturday: 4mg Saturday: 4mg Total Weekly Dose: 26mg Determining dose. Conctinue plan above. Follow-up in 3 weeks. Seen by Ana Mujica RPh, Funmilayo Velazquez PharmD Candidate [facility] Other 01-23-2023 Evaluation note* Encounter Date Diagnosis Assessment Notes Treatment Notes Treatment Clinical Notes Nov, Medication monitoring encounter (ICD-10 - Z51.81) Referring Provider: Marcus Recinos Diagnosis: Atrial Flutter INR Goal: 2-3 INR: 2.6 Warfarin Tablet Size: 4mg Saturday: 4mg Saturday: 4mg Saturday: 4mg Saturday: 4mg : 2mg Saturday: 4mg Saturday: 4mg Total Weekly Dose: 26mg Determining dose. Conctinue plan above. Follow-up in 2 weeks. Seen by Ana Mujica [facility] [employer] Other 01-12-2023 Evaluation note* Encounter Date Diagnosis Assessment Notes Treatment Notes Treatment Clinical Notes Nov, Medication monitoring encounter (ICD-10 - Z51.81) Referring Provider: Marcus Recinos Diagnosis: Atrial Flutter INR Goal: 2-3 INR: 3.2 Warfarin Tablet Size: 4mg Saturday: 4mg Saturday: 4mg Saturday: 4mg Saturday: 4mg : 2mg Saturday: 4mg Saturday: 4mg Total Weekly Dose: 26mg Determining dose. Begin new plan, a 7% decrease. Follow-up in 1 week. Seen by Carlos A Salazar PharmD [place] [employer] Other 06-14-2022 NoteHandP reviewed. no changes since dictated. HOSPITAL REGULATIONS: All Positive and Important Negative Findings Shall Be Recorded DATE ADMITTED: 04/17/2022 The patient is a 66 year old white male with complaints of declining vision out of the left eye. Hebelieves that this has been ongoing for the last 6-12 months. From this eye he no longer feels comfortable that he can see the television or read. He also states at nighttime while driving he has difficulty with driving because of glare and halos from headlights. PAST OCULAR HISTORY: 1. 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 2. Status post cataract extraction with intraocular lens placement for the right eye. 3. Intravitreal injections bilaterally for wet age-related macular degeneration. PAST MEDICAL HISTORY: 1. Hernia repair. 2. Hypercholesterolemia. 3. Prediabetes. 4. Benign prostatic hypertrophy. PSYCHOSOCIAL HISTORY:Denies tobacco, alcohol or recreational drug abuse. SYSTEMIC MEDICATIONS: 1. Pantoprazole. 2. Eliquis. 3. Spironolactone. 4. Metoprolol. 5. Furosemide. 6. Amiodarone. 7. Tamsulosin. 8. Simvastatin. ALLERGIES: Ciprofloxacin. REVIEW OF SYSTEMS:No pertinent positives. PHYSICAL EXAMINATION Blood pressure measured at 110/71 with a respiration rate of 12, pulse of 54. GENERAL: He is awake, alert and oriented x 3. Well developed, well nourished. No acute distress. HEART: Regular rate and rhythm. LUNGS: Clear bilaterally. ABDOMEN: Soft, non-tender, non-distended. EXTREMITIES: No pitting edema. OPHTHALMIC EXAMINATION: Visual acuity of 20/50-1 in the right and 20/200 in the left. Pupils, motility, muscle balance, confrontation to visual mejia within normal limits bilaterally. Pressure measured at 18 and 17 right and left eye respectively. Slit lamp examination revealed blepharitis with a severe decrease in tear film bilaterally. Conjunctivae, cornea, anterior chamber and iris are withinnormal limits bilaterally. Lens status demonstrated well centered posterior chamber intraocular lens in the right eye and 3+ nuclear sclerosis, 1+ cortical changes and 1+ PSC in the left eye. Fundus examination revealed a good view with good dilation bilaterally. Optic discs, vessels, periphery and vitreous are within normal limits bilaterally. The macula demonstrated moderate atrophy with pigment mottling bilaterally. ASSESSMENT AND PLAN: 1. Visually significant cataract left eye. After risks, benefits, alternatives as well as expectations were delivered to the patient he elected to go forward with cataract removal. He understands therisks include but are not limited to infection, bleeding, loss of vision or loss of the eye itself.Secondly, he understands that postoperatively he will likely require spectacle correction for best visual acuity. Finally, complete opthalmic examination is performed and there is not determined any other source of vision decline other than the cataract. 2. COVID-19: The patient was briefed on the condition of COVID-19 and the increased risk of its contraction in the hospital setting. The patient understands that these risks occur and he is willing to assume these risks given the severity of diminishment in activities of daily living. Abdoul Rutherford Dictated: 04/16/2022 [id number] Transcribed: 04/17/2022[facility] HospitalComment on above:Result Comment: Electronically Signed By: Sarath Hines DO\.br\Date and Time Signed: 04/17/22 09:13 [id number] Hospital Discharge instructions Follow Up Care 04/04/2022 10:45:36 With:JOVANNA EDMONDS Address: [address] [place] [phone] Business (1) When:1 to 2 days [facility]05-24[facility] Dis[facility] summary Author Jin Berkowitz [facility] January 23, 2022 12:48pm Note Date/Time January 23, 2022 12: 48pm [facility] [address] [place] [id number] Discharge Summary Signed Patient: Remedios Magaña MR#: [id number] : 1955 Acct:[id number] Age/Sex: 66 / M Adm Date: 2 Loc: Room: [address] [place] [address]: Jin Berkowitz MD Copies to: MD Jin Sommer MD~ Providers Date of Discharge: 01/23/22 Discharging Provider: Jin Berkowitz Primary Care Provider: Tirso Frausto Consults: 01/20/22 02:35 Consult to Cardiology Routine 01/20/22 02:41 Consult to Case Management Routine Discharge Diagnosis (1) Atrial flutter: (2) Cardiomyopathy: (3) Diabetes mellitus: (4) Hyperlipidemia: Final Diagnosis Final Discharge Diagnosis: Atrial flutter Cardiomyopathy Type 2 diabetes mellitus Summary Hospital Course Hospital course: Patient is a 66-year-old gentleman past medical history of diabetes diet- controlled, hyperlipidemia, BPH, reformed smoker was recommended to go to [place] [facility] after he was found to have atrial flutter on EKG done at his PCPs office.? Patient states that he has been having intermittent left-sided chest pain for the past few weeks which can happen with/without exertion and last for couple minutes and subsides with rest.? He also noticed drenching sweats when hewakes up in the morning intermittently for the past few weeks.? Occasionally he also felt fluttering sensation in his chest.? He finally went to see his primarycare physician where he was found to be in atrial flutter and was recommended [facility]go to [facility].? EKG done there showed changes suspicious for ACS, ED physician spoke to cardiology here and was recommended to transfer here for further evaluation and management.? The patient was transferred to [facility] for further evaluation. Cardiology was consulted. He underwent left heart cath which showed mild CAD. Ejection fraction was noted mandy 35%. The patient was started on metoprolol, digoxin, Eliquis, enalapril and spironolactone per cardiology recommendations. After left heart cath he was noted to have pauses but the patient was asymptomatic. He was observed overnight and his heart rate improved but he remains in atrial flutter. The patient was counseled about risks and benefits of anticoagulation. He was advised to continue on blood thinners and to follow-up with cardiology as an outpatient to consider cardioversion. The patient was also referred to have a CT scan of the chest as an outpatient due to night sweats. His chest x-ray not show any acute finding Condition Condition at Discharge: Stable Time Spent with Patient Time spent providing/coordinating discharge services (# min): 35 Surgeries and Procedures Operation Date: 01/22/22 08:55 Actual Procedures p CL [facility] Angio - Brandt Petit MD Diagnostic Studies Completed and Pending Studies Labs on day of discharge: 01/23/22 11:11: POC Glucose 155 01/23/22 06:39: POC Glucose 111 01/22/22 21:17: POC Glucose 122 01/22/22 16:16: POC Glucose 136, POC Glucose Comment Glu2: cleaned meter 01/22/22 11:34: APTT 71.1 H Exam Physical Exam Vital Signs: Temp Pulse Resp BP Pulse Ox 97.8 F 73 18 100/64 93 L 01/23/22 08:00 01/23/22 08:00 01/23/22 08:00 01/23/22 08:00 01/23/22 08:00 Narrative: General: Patient is alert and awake, laying comfortably in bed, no signs of distress CVS: irregular rate and rhythm, no added sounds or murmurs RES: Clear to auscultation bilaterally, symmetric expansion, no distress ABD: Soft, not distended, no tenderness, positive bowel sounds, no palpable masses EXT: Moves all, no restriction of movement, no calf tenderness, no edema, radialapproach left heart cath, no evidence of bleeding or hematoma NEURO: Alert, oriented by 3, normal speech, normal motor function Discharge Plan Discharge Plan Patient Disposition: Home Additional Instructions: DISCHARGE INSTRUCTIONS FOR CARDIAC HOUSE SUPERINTENDENT PHONE NUMBER OF YOUR PHYSICIAN: [phone] PROCEDURE: Heart Cath The following instructions have been prepared to help you care for yourself, or be cared for upon your return home. 1. You were given conscious sedation. Do not operate a vehicle, power tools, make important decisions, or drink alcohol for 24 hours. You might be drowsy orlight headed. Return to the Emergency Room if you have trouble breathing, walking or nausea and vomiting. 2. FOR BLEEDING: Apply continuous pressure to the site and call 911. 3. Operative Site Care: Keep the dressing clean and dry. You may change the dressing only if soiled or wet. You may remove the dressing the following morning. You may wash over the puncture site in the shower. If the puncture site is at the wrist no soaking for 3 days. Some bruising or slight swelling may be present. -Signs of infection are redness, warmth, swelling, getting more sore, colored drainage, fever or chills. -Should the arm or leg become cold, numb, blue or white, call the photographer helper immediately. 4. ACTIVITY: You are advised to go directly home from the hospital. Restrict your activities for the rest of the day. Resume light or normal activities tomorrow. Do not engage in any activity that will stress the puncture site. Avoid heavy lifting (over 15 lbs.), straining or bending at the catheter site for 48 hours after discharge. If the puncture site is at the wrist do not manipulate wrist for 24 hours and no lifting more than 3 lbs for 3 days. 5. DIET:You may eat your regular diet when you desire. 6. MEDICATIONS: Resume your daily prescription schedule. Prescriptions may be sent with you if needed. Use as directed. When taking pain medications, you may experience dizziness or drowsiness. Do not drink alcohol or drive when taking pain medications. 7. If you should experience episodes of angina e.g. chest discomfort, heaviness, tightness, pressure, burning, with or without radiation to the neck, jaws, arms, or back- Use 1 Nitrostat under your tongue every 5-10 minutes, and up to 3 tablets. If no relief- Call 911 and go to the nearest Emergency Room. -Notify the office for recurrent angina, chest pain or other concerns. You may NOT drive yourself home! Follow the medication instructions provided on your discharge. If the dosages and instructions on this sheet differ from the dosage and instructions on the bottle, follow the instructions on the bottle. [facility] is not responsible for incorrect prescription information provided by thepatient during their visit. Do not stop your medications without consulting your health care provider. Please take the list with you to your next doctor's appointment. Prescriptions: New digoxin 125 mcg (0.125 mg) tablet 125 mcg PO DAILY 30 Days Qty: 30 RF: 12 metoprolol succinate [Toprol XL] 50 mg tablet extended release 24 hr 50 mg PO DAILY 30 Days Qty: 30 RF: 12 enalapril maleate [Vasotec] 5 mg tablet 5 mg PO QPM 30 Days Qty: 30 RF: 12 spironolactone 25 mg tablet 12.5 mg PO QAM 30 Days Qty: 15 RF: 12 furosemide [Lasix] 40 mg tablet 40 mg PO DAILY PRN (Reason: weight gain) 30 Days Qty: 30 RF: 6 Continued Eliquis 5 mg tablet 5 mg PO BID RF: 0 tamsulosin 0.4 mg capsule 0.4 mg PO DAILY RF: 0 pantoprazole 40 mg tablet,delayed release (DR/EC) 40 mg PO DAILY RF: 0 simvastatin 20 mg tablet 20 mg PO DAILY RF: 0 pyridoxine (vitamin B6) [Vitamin B-6] 100 mg Tablet 100 mg PO DAILY RF: 0 PreserVision AREDS-2 250-90-40-1 mg Capsule 1 tab PO BID RF: 0 Discontinued isosorbide mononitrate 60 mg tablet extended release 24 hr 30 mg PO DAILY RF: 0 metoprolol tartrate 50 mg tablet 50 mg PO BID RF: 0 Other Ambulatory Orders: CT chest wo con high res (Routine) Timeframe: 1 Week Location: Determined by Patient Ordered By: Ama Morrison Follow Up: [facility] [Outside] Marcus Recinos MD [Active Staff] - 02/13/22 12:40 pm Tirso Frausto MD [Primary Care Provider] - (You have been scheduled for a follow up appointment for the following date and time, please call to rescheduleif needed.) Documented By: Jni Berkowitz MD 01/23/22 1244 Signed By: <Electronically signed by Jin Berkowitz MD> 01/23/22 1248 [facility] Work Phone: 1(407) 542-135503-22-2022 Progress note Author Brandt Petit [facility] January 23, 2022 8:50am Note Date/Time January 23, 2022 8:5 0am [facility] [address] [place] [address] Cardiology Progress Note Signed Patient: Remedios Magaña MR#: [id number] : 1955 Acct:[id number] Age/Sex: 66 / M Adm Date: 2 Loc: Room: [address] [place] [address] Type : ADM INOo Attending Dr: Jin Berkowitz MD Copies to: ~ Date of Service: 01/23/2022 Subjective Principal diagnosis: Atrial flutter, cardiomyopathy Interval history: Remedios is doing well this morning. He had no problems overnight status post leftheart catheterization done yesterday via right radial approach his wrist looks and feels good. He is having no chest pain or other anginal symptoms. He is having no resting dyspnea. He denies orthopnea. He has no peripheral edema. It is my clinical impression that Mr. Camacho is ready for discharge to home today. Exam Physical Exam Vital Signs: Temp Pulse Resp BP Pulse Ox 97.8 F 73 18 114/76 93 L 01/23/22 05:19 01/23/22 05:19 01/23/22 05:19 01/23/22 05:19 01/23/22 05:19 Const General: cooperative, no acute distress and well developed Nutritional Appearance: average body habitus Orientation: alert, awake, oriented x3 and oriented to time HEENT Head: normal to inspection Mouth: oral mucosae normal and moist mucous membranes Teeth and gingiva: fair dentition Eyes Conjunctivae: conjunctivae normal Sclera: sclerae normal Pupils: PERRL and accommodation normal EOM: EOM intact bilaterally Direct ophthalmoscopy: no photophobia Neck Neck: full ROM and no lymphadenopathy Neck mass: No Thyroid: thyroid normal Carotids: normal carotid upstroke Lymphatic: no lymphadenopathy noted and no lymphedema noted Chest Chest palpation & inspection: normal inspection of the chest Resp Effort & Inspection: normal respiratory effort and able to speak in complete sentences Auscultation: rales Cardio Jugular venous pressure: JVD Rate: tachycardic Rhythm: abnormal rhythm irregularly irregular Heart Sounds: S1 normal, S2 normal and murmur systolic I/ and at the left sternal border Pulses: radial pulses present, posterior tibial pulses present and dorsalis pedis present GI Inspection: normal to inspection Palpation: soft and no hepatosplenomegaly Auscultation: normal bowel sounds Skin General: no rashes or lesions noted Trauma: no lacerations or abrasions Wounds: no wounds Neuro General: patient alert, patient awake, patient oriented x3, moves all extremities and no focal motor deficits Cranial Nerves: CN's II-XII intact bilaterally and EOM intact bilaterally Cognition: normal cognition Speech: speech normal Motor: muscle tone normal throughout Sensory Exam: no sensory deficits noted Extrem General: no clubbing, cyanosis or edema Psych Appearance: grossly normal Mental Status: mental status grossly normal Mood: congruent mood Affect: normal affect Speech and Movement: speech and movement normal Attitude: cooperative Thought Process: normal Thought Content: normal Insight: insight good Judgment: judgment good Objective Labs CBC & Chem 7: 01/21/22 07:15 01/22/22 05:13 Labs: Laboratory Results - last 24 hr 01/22/22 01/22/22 01/22/22 11:19 11:34 16:16 APTT 71.1 H POC Glucose 107 136 POC Glucose Comment Glu2: cleaned meter Glu2: cleaned meter 01/22/22 01/23/22 21:17 06:39 APTT POC Glucose 122 111 POC Glucose Comment A&P - Cardiology (1) Atrial flutter: Assessment/Problem Details: Now under good rate control and tolerating medical therapy for such well. Elevated CV2 score, and therefore has an indication for full anticoagulation with DOAC Code(s): I48.92 - Unspecified atrial flutter Status: Acute Plan: Recommend discharge to home today on medical therapy for rate control and anticoagulation. We will plan for outpatient cardioversion in 4 weeks (2) Cardiomyopathy: Assessment/Problem Details: Appears to be tachycardia mediated with recent unrecognized and uncontrolled atrial flutter. No significant underlying ischemic disease noted on cardiac catheterization. No evidence of underlying ischemic substrate patient. Patientnow appears well compensated and clinically euvolemic. Code(s): I42.9 - Cardiomyopathy, unspecified Status: Acute Plan: Recommend discharge to home today on medical therapy. Plan for clinical follow- up in the cardiology clinic within 3 weeks. As above, plan for elective cardioversion in 4 weeks for jew of normal sinus mechanism (3) Diabetes mellitus: Assessment/Problem Details: Aggressive glycemic control is strongly recommended. 10% total body weight lossis strongly recommended. Plant-based low carbohydrate diet is strongly recommended. Regular exercise with a goal of 150 minutes/week is strongly recommended. Code(s): E11.9 - Type 2 diabetes mellitus without complications Status: Acute Plan: Plan as above. (4) Hyperlipidemia: Assessment/Problem Details: Stable on statin therapy. Maintain statin therapy on discharge. Code(s): E78.5 - Hyperlipidemia, unspecified Status: Acute Plan: Maintain statin therapy at current dosing. Plan Medical regimen on discharge: 1. Digoxin 0.125 mg every morning 2. Metoprolol succinate 50 mg every evening 3. Enalapril 5 mg every evening 4. Spironolactone 12.5 mg every morning 5. Lasix 40 mg daily as needed swelling, weight gain greater than 3 pounds in 24 hours or greater than 5 pounds in 48-hour. If needed this should be taken 30minutes following morning spironolactone dose 6. Apixaban 5 mg twice a day Please. make sure the patient has outpatient follow-up in an [place] clinic within 3 weeks. From this appointment we will plan to schedule elective outpatient cardioversion. Time spent with patient Time Spent With Patient (min): 30 Documented By: Brandt Petit MD 01/23/22 0844 Signed By: <Electronically signed by Brandt Petit MD> 01/23/22 0850 [facility] Work Phone: 1(378) 973-648403-22-2022 Hospital Discharge instructions Additional Instructions DISCHARGE INSTRUCTIONS FOR CARDIAC HOUSE SUPERINTENDENT PHONE NUMBER OF YOUR PHYSICIAN: [phone] PROCEDURE: Heart Cath The following instructions have been prepared to help you care for yourself, or be cared for upon your return home. 1. You were given conscious sedation. Do not operate a vehicle, power tools, make important decisions, or drink alcohol for 24 hours. You might be drowsy or light headed. Return to the Emergency Room if you have trouble breathing, walking or nausea and vomiting. 2. FOR BLEEDING: Apply continuous pressure to the site and call 911. 3. Operative Site Care: Keep the dressing clean and dry. You may change the dressing only if soiled or wet. You may remove the dressing the following morning. You may wash over the puncture site in the shower. If the puncture site is at the wrist no soaking for 3 days. Some bruising or slight swelling may be present. -Signs of infection are redness, warmth, swelling, getting more sore, colored drainage, fever or chills. -Should the arm or leg become cold, numb, blue or white, call the photographer helper immediately. 4. ACTIVITY: You are advised to go directly home from the hospital. Restrict your activities for the rest of the day. Resume light or normal activities tomorrow. Do not engage in any activity that will stress the puncture site. Avoid heavy lifting (over 15 lbs.), straining or bending at the catheter site for 48 hours after discharge. If the puncture site is at the wrist do not manipulate wrist for 24 hours and no lifting more than 3 lbs for 3 days. 5. DIET:You may eat your regular diet when you desire. 6. MEDICATIONS: Resume your daily prescription schedule. Prescriptions may be sent with you if needed. Use as directed. When taking pain medications, you may experience dizziness or drowsiness. Do not drink alcohol or drive when taking pain medications. 7. If you should experience episodes of angina e.g. chest discomfort, heaviness, tightness, pressure, burning, with or without radiation to the neck, jaws, arms, or back- Use 1 Nitrostat under your tongue every 5-10 minutes, and up to 3 tablets. If no relief- Call 911 and go to the nearest Emergency Room. -Notify the office for recurrent angina, chest pain or other concerns. You may NOT drive yourself home! Follow the medication instructions provided on your discharge. If the dosages and instructions on this sheet differ from the dosage and instructions on the bottle, follow the instructions on the bottle. [facility] is not responsible for incorrect prescription information provided by the patient during their visit. Do not stop your medications without consulting your health care provider. Please take the list with you to your next doctor's appointment.[facility] Work Phone: 1(964) 520-743403-21-2022 Progress note Author Jin Berkowitz [facility] January 22, 2022 1:17pm Note Date/Time January 22, 2022 1:1 2pm [facility] [address] [place] [address] Hospitalist Progress Note Signed Patient: Remedios Magaña MR#: [id number] : 1955 Acct:[id number] Age/Sex: 66 / M Adm Date: 2 Loc: Room: [address] [place] [address] Type : ADM INOo Attending Dr: Jin Berkowitz MD Copies to: ~ Date of Service: 01/22/2022 Subjective Subjective Narrative: Patient underwent left heart cath today. He seems to be doing well. Still in atrial flutter. Denies any chest pain, shortness of breath, nausea vomiting. Continues to report some night sweats. Chest x-ray not showing acute findings. No leukocytosis or fever noted. Night sweats could be related to atrial flutter. The patient will be following up as an outpatient for elective cardioversion per cardiology recommendations. He was recently started on Eliquis as an outpatient and has sample supplies. He was advised to follow-up with his PCP and cardiology for refills Exam Physical Exam Vital Signs: Temp Pulse Resp BP Pulse Ox 97.8 F 50 L 18 90/64 L 98 01/22/22 08:04 01/22/22 11:48 01/22/22 11:48 01/22/22 11:48 01/22/22 11:48 Narrative: General: Patient is alert and awake, laying comfortably in bed, no signs of distress CVS: irregular rate and rhythm, no added sounds or murmurs RES: Clear to auscultation bilaterally, symmetric expansion, no distress ABD: Soft, not distended, no tenderness, positive bowel sounds, no palpable masses EXT: Moves all, no restriction of movement, no calf tenderness, no edema, radialapproach left heart cath, no evidence of bleeding or hematoma NEURO: Alert, oriented by 3, normal speech, normal motor function Objective Lab Results CBC & Chem 7: 01/21/22 07:15 01/22/22 05:13 Meds Allergies and Active Meds Allergies No Known Allergies Allergy (Verified 01/20/22 02:42) Active Meds: Active Medications Generic Name Dose Route Start Last Admin Trade Name Tia PRN Reason Stop Dose Admin Acetaminophen 650 mg 01/20/22 02:35 01/20/22 16:14 Acetaminophen 325 Mg Tablet PO 01/20/23 02:34 650 mg Q6HR PRN Administration Pain Scale 1 - 3 or fever Aspirin 81 mg 01/21/22 09:00 01/22/22 08:47 Aspirin 81 Mg Tablet.Dr PO 01/21/23 08:59 81 mg DAILY NARCISO Administration Atorvastatin Calcium 10 mg 01/20/22 09:00 01/22/22 10:30 Atorvastatin 10 Mg Tablet PO 01/20/23 08:59 10 mg DAILY NARCISO Administration Enalapril Maleate 2.5 mg 01/20/22 21:00 01/22/22 08:47 Enalapril Maleate 2.5 Mg Tablet PO 01/20/23 20:59 2.5 mg BID NARCISO Administration Dextrose/Sodium Chloride 1,000 mls @ 100 mls/hr 01/22/22 09:30 5 % Dextrose-0.45 % Nacl IV 01/22/23 09:29 .Q10H NARCISO Sodium Chloride 1,000 mls @ 100 mls/hr 01/22/22 10:00 0.9% Sodium Chloride 1,000 Ml IV 01/22/23 09:59 .Q10H NARCISO Lorazepam 0 mg 01/20/22 02:45 Lorazepam 1 Mg Tablet PO 07/19/22 02:44 PROTOCOL PRN Alcohol Withdrawal Protocol Lorazepam 0 mg 01/20/22 02:45 Lorazepam 2 Mg/Ml Vial IM 07/19/22 02:44 PROTOCOL PRN Alcohol Withdrawal Protocol Metoprolol Tartrate 25 mg 01/22/22 21:00 Metoprolol Tartrate 25 Mg Tablet PO 01/22/23 20:59 BID NARCISO Multivitamins 1 tab 01/20/22 09:00 01/22/22 10:30 Multivitamin 1 Tab Tablet PO 01/20/23 08:59 1 tab DAILY NARCISO Administration Nitroglycerin 0.5 inch 01/20/22 21:00 01/21/22 20:10 Nitroglycerin 2% Oint Packet TRANSDERML 01/20/23 20:59 0.5 inch BID NARCISO Administration Omeprazole 20 mg 01/20/22 09:00 01/22/22 10:30 Omeprazole 20 Mg Capsule.Dr PO 01/20/23 08:59 20 mg DAILY NARCISO Administration Ondansetron HCl 4 mg 01/20/22 02:35 Ondansetron 4 Mg/2 Ml Vial IV-PUSH 01/20/23 02:34 Q8H PRN Nausea And Vomiting Potassium Chloride 40 meq 01/20/22 02:35 Potassium Chloride Er 20 Meq Tab.Er.Prt PO 01/20/23 02:34 DAILY PRN Hypokalemia Potassium Chloride 40 meq 01/22/22 09:28 Potassium Chloride Er 20 Meq Tab.Er.Prt PO STAT PRN Hypokalemia Pyridoxine HCl 100 mg 01/20/22 09:00 01/22/22 10:30 Pyridoxine 100 Mg Tablet PO 01/20/23 08:59 100 mg DAILY NARCISO Administration Sodium Chloride 0 ml 01/22/22 09:28 Sodium Chloride 0.9 % 10 Ml Syringe IV-PUSH 01/22/23 09:27 PRN PRN Flush Tamsulosin HCl 0.4 mg 01/20/22 09:00 01/22/22 10:30 Tamsulosin 0.4 Mg Cap.Er.24h PO 01/20/23 08:59 0.4 mg DAILY NARCISO Administration Thiamine HCl 100 mg 01/20/22 09:00 01/22/22 10:30 Thiamine 100 Mg Tablet PO 01/20/23 08:59 100 mg BID NARCISO Administration A&P - Hospitalist Assessment/Plan (1) Atrial flutter: Plan: The patient is currently in atrial flutter with variable block. He was started on digoxin and metoprolol per cardiology Left heart catheter showed nonischemic cardiomyopathy with moderate resting leftventricular systolic dysfunction, ejection fraction was noted to be 35% with +1 mitral insufficiency. Diffuse mild nonobstructive epicardial coronary heart disease with right dominant circulation. Medical management was advised. Patient is currently on aspirin, Lipitor, Eliquis, enalapril and metoprolol Plan discharge home if cleared by cardiology today (2) Hyperlipidemia: Plan: Continue statin. (3) Chronic alcohol use: Plan: No signs of acute alcohol withdrawal. Continue thiamine and CIWA protocol. Documented By: Jin Berkowitz MD 01/22/22 1303 Signed By: <Electronically signed by Jin Berkowitz MD> 01/22/22 1317 [facility] Work Phone: 1(335) 254-474903-20-2022 Progress note Author Ama Morrison [facility] January 21, 2022 5:02pm Note Date/Time January 21, 2022 3:1 9pm [facility] [address] [place] [address] Hospitalist Progress Note Signed with Addenda Patient: Remedios Magaña MR#: [id number] : 1955 Acct:[id number] Age/Sex: 66 / M Adm Date: 2 Loc: Room: [address] [place] [address] Type : ADM INOo Attending Dr: Ama Morrison MD Copies to: ~ ADDENDUM1 Patient will require close follow-up with his primary care provider regarding A1c of 6.5 including diabetic education and dietary modification. Addendum Documented By: Ama Morrison MD 01/21/221701 Addendum Signed By: <Electronically signed by Ama Morrison MD> 01/21/221701 Date of Service: 01/21/2022 Subjective Subjective Narrative: Patient examined bedside and mentioned having episodes of night sweats last night. He has been having night sweats recently but denies having weight loss. He had a colonoscopy couple of years ago which was normal. Remains in atrial flutter with controlled heart rate. Appreciate cardiology consultation with plan for coronary angiogram tomorrow. He denies hemoptysis or hematuria. Exam Physical Exam Vital Signs: Temp Pulse Resp BP Pulse Ox 97.6 F 71 18 86/53 L 99 01/21/22 08:00 01/21/22 11:02 01/21/22 11:02 01/21/22 11:02 01/21/22 11:02 Const General: cooperative and no acute distress Orientation: alert, awake and oriented x3 Resp Effort & Inspection: normal respiratory effort and able to speak in complete sentences Auscultation: no rales, no rhonchi and no wheezes Cardio Rhythm: abnormal rhythm irregularly irregular Heart Sounds: S1 normal and S2 normal GI Palpation: soft Objective Lab Results CBC & Chem 7: 01/21/22 07:15 01/20/22 06:11 Meds Allergies and Active Meds Allergies No Known Allergies Allergy (Verified 01/20/22 02:42) Active Meds: Active Medications Generic Name Dose Route Start Last Admin Trade Name Tia PRN Reason Stop Dose Admin Acetaminophen 650 mg 01/20/22 02:35 01/20/22 16:14 Acetaminophen 325 Mg Tablet PO 01/20/23 02:34 650 mg Q6HR PRN Administration Pain Scale 1 - 3 or fever Aspirin 81 mg 01/21/22 09:00 01/21/22 08:00 Aspirin 81 Mg Tablet.Dr PO 01/21/23 08:59 81 mg DAILY NARCISO Administration Atorvastatin Calcium 10 mg 01/20/22 09:00 01/21/22 08:00 Atorvastatin 10 Mg Tablet PO 01/20/23 08:59 10 mg DAILY NARCISO Administration Digoxin 125 mcg 01/21/22 09:00 01/21/22 08:00 Digoxin 125 Mcg Tablet PO 01/21/23 08:59 125 mcg DAILY NARCISO Administration Digoxin 250 mcg 01/21/22 10:40 01/21/22 10:59 Digoxin 250 Mcg Tablet PO 01/21/23 10:39 250 mcg DAILY NARCISO Administration Enalapril Maleate 2.5 mg 01/20/22 21:00 01/21/22 07:59 Enalapril Maleate 2.5 Mg Tablet PO 01/20/23 20:59 2.5 mg BID NARCISO Administration Heparin Sodium (Porcine) 4,000 unit 01/20/22 02:48 01/20/22 10:24 Heparin *Protocol Bolus* 5,000 Unit/Ml Vial 40 unit/kg (4000 unit) 01/20/23 02:47 4,000 unit IV-PUSH Administration PROTOCOL PRN PTT 40-53 Heparin Sodium (Porcine) 4,000 unit 01/20/22 02:48 Heparin *Protocol Bolus* 5,000 Unit/Ml Vial IV-PUSH 01/20/23 02:47 PROTOCOL PRN PTT < 40 Heparin Sodium/Sodium Chloride 25,000 unit in 250 mls @ 10 mls/hr 01/20/22 03:00 01/21/22 02:22 Heparin IV 01/20/23 02:59 Not Given .Q24H NARCISO Protocol Lorazepam 0 mg 01/20/22 02:45 Lorazepam 1 Mg Tablet PO 07/19/22 02:44 PROTOCOL PRN Alcohol Withdrawal Protocol Lorazepam 0 mg 01/20/22 02:45 Lorazepam 2 Mg/Ml Vial IM 07/19/22 02:44 PROTOCOL PRN Alcohol Withdrawal Protocol Metoprolol Tartrate 50 mg 01/20/22 09:00 01/21/22 08:00 Metoprolol Tartrate 50 Mg Tablet PO 01/20/23 08:59 50 mg BID NARCISO Administration Multivitamins 1 tab 01/20/22 09:00 01/21/22 08:00 Multivitamin 1 Tab Tablet PO 01/20/23 08:59 1 tab DAILY NARCISO Administration Nitroglycerin 0.5 inch 01/20/22 21:00 01/21/22 08:00 Nitroglycerin 2% Oint Packet TRANSDERML 01/20/23 20:59 0.5 inch BID NARCISO Administration Omeprazole 20 mg 01/20/22 09:00 01/21/22 08:00 Omeprazole 20 Mg Capsule.Dr PO 01/20/23 08:59 20 mg DAILY NARCISO Administration Ondansetron HCl 4 mg 01/20/22 02:35 Ondansetron 4 Mg/2 Ml Vial IV-PUSH 01/20/23 02:34 Q8H PRN Nausea And Vomiting Potassium Chloride 40 meq 01/20/22 02:35 Potassium Chloride Er 20 Meq Tab.Er.Prt PO 01/20/23 02:34 DAILY PRN Hypokalemia Pyridoxine HCl 100 mg 01/20/22 09:00 01/21/22 08:00 Pyridoxine 100 Mg Tablet PO 01/20/23 08:59 100 mg DAILY NARCISO Administration Tamsulosin HCl 0.4 mg 01/20/22 09:00 01/21/22 08:00 Tamsulosin 0.4 Mg Cap.Er.24h PO 01/20/23 08:59 0.4 mg DAILY NARCISO Administration Thiamine HCl 100 mg 01/20/22 09:00 01/21/22 08:00 Thiamine 100 Mg Tablet PO 01/20/23 08:59 100 mg BID NARCISO Administration A&P - Hospitalist Assessment/Plan (1) Atrial flutter: Plan: Patient remains in a flutter with controlled heart rate. Echocardiogram showingEF of 55% with no wall motion abnormality. Patient has been started on digoxin,enalapril and continued on metoprolol. He also received IV Lasix 40 mg in the morning. Plan for cardiac catheterization tomorrow given his complaint of exertional dyspnea with risk factors. Also on heparin drip with Eliquis on hold. (2) Hyperlipidemia: Plan: Continue statin. (3) Chronic alcohol use: Plan: No signs of acute alcohol withdrawal. Continue thiamine and CIWA protocol. Plan Given his complaint of night sweats and smoking history will obtain 2 view chestx-ray. He might require further evaluation depending upon x-ray results and hissymptoms. Documented By: Ama Morrison MD 01/21/22 1516 Signed By: <Electronically signed by Ama Morrison MD> 01/21/22 1525 [facility] Work Phone: [phone]) 143-708703-20-2022 Progress note Author Brandt Petit [facility] January 21, 2022 10:42am Note Date/Time January 21, 2022 10: 41am [facility] [address] [place] [address] Cardiology Progress Note Signed Patient: Remedios Magaña MR#: [id number] : 1955 Acct:[id number] Age/Sex: 66 / M Adm Date: 2 Loc: Room: [address] [place] [address] Type : ADM INOo Attending Dr: Ama Morrison MD Copies to: ~ Date of Service: 01/21/2022 Subjective Principal diagnosis: Atrial flutter, cardiomyopathy Interval history: Remedios is doing much better this morning. He notes that his breathing is much improved. He is not having orthopnea and was able to sleep comfortably. He denies any chest pain or any active anginal symptoms. He remains in atrial flutter although his ambient heart rate has come down nicely following IV digoxin load. He is tolerating his medical therapy well without untoward side effect. As noted previously, resting echocardiogram shows new left ventricular systolic dysfunction of moderate degree (ejection fraction 30 to 35%). He is currently on IV unfractionated heparin drip for anticoagulation. He has a few questions this morning regarding upcoming cardiac catheterization which we have tentatively planned for tomorrow morning. He has no new complaints presently. Exam Physical Exam Vital Signs: Temp Pulse Resp BP Pulse Ox 97.6 F 71 18 110/75 99 01/21/22 08:00 01/21/22 08:00 01/21/22 08:00 01/21/22 08:00 01/21/22 08:00 Const General: cooperative, no acute distress and well developed Nutritional Appearance: average body habitus Orientation: alert, awake, oriented x3 and oriented to time HEENT Head: normal to inspection Mouth: oral mucosae normal and moist mucous membranes Teeth and gingiva: fair dentition Eyes Conjunctivae: conjunctivae normal Sclera: sclerae normal Pupils: PERRL and accommodation normal EOM: EOM intact bilaterally Direct ophthalmoscopy: no photophobia Neck Neck: full ROM and no lymphadenopathy Neck mass: No Thyroid: thyroid normal Carotids: normal carotid upstroke Lymphatic: no lymphadenopathy noted and no lymphedema noted Chest Chest palpation & inspection: normal inspection of the chest Resp Effort & Inspection: normal respiratory effort and able to speak in complete sentences Auscultation: rales Cardio Jugular venous pressure: JVD Rate: tachycardic Rhythm: abnormal rhythm irregularly irregular Heart Sounds: S1 normal, S2 normal and murmur systolic I/ and at the left sternal border Pulses: radial pulses present, posterior tibial pulses present and dorsalis pedis present GI Inspection: normal to inspection Palpation: soft and no hepatosplenomegaly Auscultation: normal bowel sounds Skin General: no rashes or lesions noted Trauma: no lacerations or abrasions Wounds: no wounds Neuro General: patient alert, patient awake, patient oriented x3, moves all extremities and no focal motor deficits Cranial Nerves: CN's II-XII intact bilaterally and EOM intact bilaterally Cognition: normal cognition Speech: speech normal Motor: muscle tone normal throughout Sensory Exam: no sensory deficits noted Extrem General: no clubbing, cyanosis or edema Psych Appearance: grossly normal Mental Status: mental status grossly normal Mood: congruent mood Affect: normal affect Speech and Movement: speech and movement normal Attitude: cooperative Thought Process: normal Thought Content: normal Insight: insight good Judgment: judgment good Objective Labs CBC & Chem 7: 01/21/22 07:15 01/20/22 06:11 Labs: Laboratory Results - last 24 hr 01/20/22 01/20/22 01/20/22 06:11 06:11 11:15 Corrected WBC Uncorrected WBC Count RBC Hgb Hct MCV MCH MCHC RDW Plt Count MPV Neut % (Auto) Lymph % (Auto) Crane % (Auto) Eos % (Auto) Baso % (Auto) Neut # (Auto) Lymph # (Auto) Crane # (Auto) Eos # (Auto) Baso # (Auto) Nucleated RBC % (auto) APTT POC Glucose 133 POC Glucose Comment Glu2: cleaned meter Troponin I High Sens 7 Add-On Test Request Cancelled 01/20/22 01/20/22 01/20/22 16:41 17:37 20:51 Corrected WBC Uncorrected WBC Count RBC Hgb Hct MCV MCH MCHC RDW Plt Count MPV Neut % (Auto) Lymph % (Auto) Crane % (Auto) Eos % (Auto) Baso % (Auto) Neut # (Auto) Lymph # (Auto) Crane # (Auto) Eos # (Auto) Baso # (Auto) Nucleated RBC % (auto) APTT 75.0 H POC Glucose 121 135 POC Glucose Comment Glu2: cleaned meter Troponin I High Sens Add-On Test Request 01/20/22 01/21/22 01/21/22 23:56 06:38 07:15 Corrected WBC 4.9 Uncorrected WBC Count 4.9 RBC 5.18 Hgb 15.9 Hct 46.7 MCV 90.2 MCH 30.8 MCHC 34.2 RDW 13.4 Plt Count 176 MPV 9.2 Neut % (Auto) 56.3 Lymph % (Auto) 26.4 Crane % (Auto) 13.0 Eos % (Auto) 3.1 Baso % (Auto) 1.2 Neut # (Auto) 2.8 Lymph # (Auto) 1.3 Crane # (Auto) 0.6 Eos # (Auto) 0.2 Baso # (Auto) 0.1 Nucleated RBC % (auto) 0.2 APTT 81.3 H POC Glucose 113 POC Glucose Comment Troponin I High Sens Add-On Test Request 01/21/22 07:15 Corrected WBC Uncorrected WBC Count RBC Hgb Hct MCV MCH MCHC RDW Plt Count MPV Neut % (Auto) Lymph % (Auto) Crane % (Auto) Eos % (Auto) Baso % (Auto) Neut # (Auto) Lymph # (Auto) Crane # (Auto) Eos # (Auto) Baso # (Auto) Nucleated RBC % (auto) APTT 61.9 H POC Glucose POC Glucose Comment Troponin I High Sens Add-On Test Request A&P - Cardiology (1) Atrial flutter: Assessment/Problem Details: New diagnosis but by history this is certainly been going on for greater than 48hours likely approximately 3 weeks. This certainly could be the source of the patient's cardiomyopathy with left ventricular systolic dysfunction. Elevated CV 2 score of 3. Rate now much improved with ambient rates in the 70 to 80 bpm range. Code(s): I48.92 - Unspecified atrial flutter Status: Acute Plan: 1. Maintain beta-blockade with metoprolol tartrate 50 mg twice daily 2. Start digoxin 25 mcg orally every morning 3. Maintain therapeutic anticoagulation with IV unfractionated heparin for now,with anticipation of changing to oral DOAC following cardiac catheterization tomorrow. (2) Cardiomyopathy: Assessment/Problem Details: Uncontrolled atrial flutter/tachycardia mediated is likely the source of this cardiomyopathy. However the patient has a high baseline CHD risk (10-year risk greater than 20%), so underlying ischemic coronary heart disease needs to be a consideration. Code(s): I42.9 - Cardiomyopathy, unspecified Status: Acute Plan: 1. Continue gentle diuresis with Lasix 40 mg IV x1 this morning. 2. Maintain Nitropaste 1/2 inch twice daily preload reduction. 3. Maintain afterload reduction with enalapril 2.5 mg twice daily 4. in the evaluation of newly diagnosed cardiomyopathy with moderate left ventricular systolic dysfunction and high baseline CHD risk, will plan for cardiac catheterization on Saturday. N.p.o. after midnight tonight. We will plan for cardiac catheterization via right radial approach. (3) Diabetes mellitus: Assessment/Problem Details: Add significantly to the patient's baseline CHD risk. Code(s): E11.9 - Type 2 diabetes mellitus without complications Status: Acute Plan: Plan as above. (4) Hyperlipidemia: Assessment/Problem Details: Stable on statin therapy. Code(s): E78.5 - Hyperlipidemia, unspecified Status: Acute Plan: Maintain statin therapy at current dosing for now. We will decide on potential intensification of statin therapy based on the results of the patient's forthcoming cardiac catheterization. Plan Thank you very much for this kind consultation and for allowing me to participate in the care of this very pleasant but obviously quite challenging patient. Time spent with patient Time Spent With Patient (min): 20 Documented By: Brandt Petit MD 01/21/22 1037 Signed By: <Electronically signed by Brandt Petit MD> 01/21/22 1042 [facility] Work Phone: [phone]) [phone] Consult note Author Brandt Petit [facility] January 20, 2022 5:08pm Note Date/Time January 20, 2022 5:0 8pm [facility] [address] [place] [address] Cardiology Consult Note Signed Patient: Remedios Magaña MR#: [id number] : 1955 Acct:[id number] Age/Sex: 66 / M Adm Date: 2 Loc: Room: [address] [place] [address] Type : ADM INOo Attending Dr: Ama Morrison MD Copies to: MD Ama Sommer MD Stephen M Tann, MD~ Cardiology HPI History of Present Illness Consult Date: 01/20/22 Reason for Consult: New onset atrial flutter, dyspnea, chest pressure HPI: Mr. Magaña is a 66 year old male with no known prior heart disease who was in hisnormal state of health until approximately 3 weeks ago. At that time the patient began to notice increasing shortness of breath with exertion. He went to an ethylbenzene converter helper appointment at which time he was told his heart rate was in the 140s. He was sent to see his primary care physician. An EKG was done which showed a new atrial flutter. The patient was started on oral apixaban, isosorbide dinitrate, and metoprolol. He was instructed to come back in a few days for repeat EKG and clinic check. Before his follow-up visit the patient noted ongoing and worsening shortness of breath. He was now complaining of occasional left-sided chest pain with radiation toward the left shoulder and left back. This would happen with exertion and at rest and was fleeting in duration. However the symptoms were concerning enough that the patient last night went to [place] emergency department for evaluation. In the [place] ER, an EKG was checked which again showed atrial flutter with rates in the 100 to 110 bpm range. There was concern for an acute coronary syndrome and Dr. Perdomo was thus contacted. On review of the electrocardiogramit was determined that the patient was not having an acute coronary event/current of injury. The patient was transferred to our inpatient hospital medicine service however for further evaluation and treatment. On my evaluation the patient remains in atrial flutter with ventricular rates inthe 100 to 110 bpm range. He is having no chest pain presently. He is on an IVheparin drip and his oral Eliquis has been held. He still having difficulty with shortness of breath although denies overt resting dyspnea. Preliminary reading of the patient's transthoracic echocardiogram which was done earlier today shows left ventricular chamber size at the upper limit of normal without focal wall motion abnormality. The global ejection fraction is moderately depressed with a resting EF in the 25 to 30% range. Pulse-wave Doppler at the mitral valve leaflets shows pattern consistent with grade 2-3 diastolic relaxation abnormality. There is no significant mitral valvular disease or severe left atrial enlargement. Given his newly diagnosed symptomatic atrial flutter with now what we see is moderate resting left ventricular systolic dysfunction I am now consulted for further cardiac evaluation and management peer Review of Systems Review of Systems All other systems reviewed & are negative unless noted below or in HPI PMFSH Vaccinated for COVID-19?: No Medical History Diabetes mellitus GERD (gastroesophageal reflux disease) Hyperlipidemia Macular degeneration Surgical History Hx of appendectomy Family History Other No significant family history Social History Smoking Status: Former smoker Tobacco Type: cigarettes Substance Use Type: Alcohol Meds Medications and Allergies Allergies No Known Allergies Allergy (Verified 01/20/22 02:42) Home Medications apixaban 5 mg tablet (Eliquis) 5 mg PO BID 01/20/22 [History Confirmed 01/20/22] isosorbide mononitrate 60 mg tablet,extended release 24 hr 30 mg PO DAILY 01/20/22 [History Confirmed 01/20/22] metoprolol tartrate 50 mg tablet 50 mg PO BID 01/20/22 [History Confirmed 01/20/22] pantoprazole 40 mg tablet,delayed release 40 mg PO DAILY 01/20/22 [History Confirmed 01/20/22] pyridoxine (vitamin B6) 100 mg tablet (Vitamin B-6) 100 mg PO DAILY 01/20/22 [History Confirmed 01/20/22] simvastatin 20 mg tablet 20 mg PO DAILY 01/20/22 [History Confirmed 01/20/22] tamsulosin 0.4 mg capsule 0.4 mg PO DAILY 01/20/22 [History Confirmed 01/20/22] vit C 250 mg-vit E 90 mg-zinc 40 mg-copper 1 [id number] capsule (PreserVision AREDS-2) 1 tab PO BID 01/20/22 [History Confirmed 01/20/22] Exam Physical Exam Vital Signs: Temp Pulse Resp BP Pulse Ox 97.8 F 89 18 99/61 L 98 01/20/22 10:56 01/20/22 16:00 01/20/22 16:00 01/20/22 16:00 01/20/22 16:00 Const General: cooperative, no acute distress and well developed Nutritional Appearance: average body habitus Orientation: alert, awake, oriented x3 and oriented to time HEENT Head: normal to inspection Mouth: oral mucosae normal and moist mucous membranes Teeth and gingiva: fair dentition Eyes Conjunctivae: conjunctivae normal Sclera: sclerae normal Pupils: PERRL and accommodation normal EOM: EOM intact bilaterally Direct ophthalmoscopy: no photophobia Neck Neck: full ROM and no lymphadenopathy Neck mass: No Thyroid: thyroid normal Carotids: normal carotid upstroke Lymphatic: no lymphadenopathy noted and no lymphedema noted Chest Chest palpation & inspection: normal inspection of the chest Resp Effort & Inspection: normal respiratory effort and able to speak in complete sentences Auscultation: rales Cardio Jugular venous pressure: JVD Rate: tachycardic Rhythm: abnormal rhythm irregularly irregular Heart Sounds: S1 normal, S2 normal and murmur systolic I/ and at the left sternal border Pulses: radial pulses present, posterior tibial pulses present and dorsalis pedis present GI Inspection: normal to inspection Palpation: soft and no hepatosplenomegaly Auscultation: normal bowel sounds Skin General: no rashes or lesions noted Trauma: no lacerations or abrasions Wounds: no wounds Neuro General: patient alert, patient awake, patient oriented x3, moves all extremities and no focal motor deficits Cranial Nerves: CN's II-XII intact bilaterally and EOM intact bilaterally Cognition: normal cognition Speech: speech normal Motor: muscle tone normal throughout Sensory Exam: no sensory deficits noted Extrem General: no clubbing, cyanosis or edema Psych Appearance: grossly normal Mental Status: mental status grossly normal Mood: congruent mood Affect: normal affect Speech and Movement: speech and movement normal Attitude: cooperative Thought Process: normal Thought Content: normal Insight: insight good Judgment: judgment good BESSIE Risk Score BESSIE Risk Score Predictor Historical: Age > 65 Years Old and 3 or more Risk Factors: FHx,HTN,elevated cholesterol,DM,active smoker Presentation: Recent (>/=24hr) Angina Score Risk Score (0-7): 3 Results Labs CBC & CMP: 01/20/22 06:11 01/20/22 06:11 Lab results: Lipids 01/20/22 Range/Units 06:11 Triglycerides 158 H (35-149) mg/dL Cholesterol 155 (140-200) mg/dL HDL Cholesterol 41 (29-71) mg/dL Cholesterol/HDL Ratio 3.8 (<5.0) CBC 01/20/22 Range/Units 06:11 RBC 4.64 (3.90-5.60) x10E6/uL Hgb 14.1 (13.0-17.0) g/dL Hct 41.8 (38.8-50.0) % Plt Count 163 (150-450) x10E3/uL Neut # (Auto) 2.6 (1.8-7.7) x10E3/uL Lymph # (Auto) 1.3 (1.00-4.8) x10E3/uL Crane # (Auto) 0.6 (0.0-0.8) x10E3/uL Eos # (Auto) 0.2 (0.0-0.45) x10E3/uL Baso # (Auto) 0.0 (0.0-0.2) x10E3/uL Comprehensive Metabolic Panel 01/20/22 Range/Units 06:11 Sodium 139 (136-146) mmol/L Potassium 4.6 (3.5-5.1) mmol/L Chloride 106 (95-114) mmol/L Carbon Dioxide 25.6 (22.0-30.0) mmol/L BUN 15 (9-23) mg/dL Creatinine 0.91 (0.64-1.27) mg/dL Glucose 116 H (70-100) mg/dL Calcium 8.6 (8.2-10.2) mg/dL Intake and Output 01/20/22 01/20/22 01/20/22 07:59 15:59 23:59 Intake Total 0 / 720 720 / 720 Balance 0 / 720 720 / 720 Intake: Oral 0 / 720 720 / 720 Other: # Unmeasured Voids 1 2 # Bowel Movements 0 Weight 100.4 kg Date of Last Bowel Movement 01/19/22 01/19/22 01/19/22 Patient Weight 01/20/22 23:59 Weight 100.4 kg Lab 01/20/22 01/20/22 06:11 09:35 PT 15.6 H INR 1.4 APTT 40.5 H 45.0 H EKG Interpretations EKG Attestation EKG: I reviewed this ECG and interpreted as documented below: EKG shows: other (Atrial flutter ventricular rate 105/min) Dysrhythmias Supraventricular dysrhythmia: atrial flutter Blocks, axis, hypertrophy, ST abn Repolarization changes or abnormalities: nonspecific abnormality, ST segment, and/or T wave A&P - Cardiology (1) Atrial flutter: Assessment/Problem Details: New diagnosis but by history this is certainly been going on for greater than 48hours likely approximately 3 weeks. Rate is not under ideal control. This certainly could be the source of the patient's cardiomyopathy with left ventricular systolic dysfunction. Elevated CV 2 score of 3. Plan: 1. Maintain beta-blockade with metoprolol tartrate 50 mg twice daily 2. Augment rate control with IV digoxin load line 3. In anticipation of cardiac catheterization will hold DOAC, and anticoagulatewith IV unfractionated heparin Code(s): I48.92 - Unspecified atrial flutter (2) Cardiomyopathy: Assessment/Problem Details: Uncontrolled atrial flutter/tachycardia mediated is likely the source of this cardiomyopathy. However the patient has a high baseline CHD risk (10-year risk greater than 20%), so underlying ischemic coronary heart disease needs to be a consideration. Plan: 1. Diurese with Lasix 40 mg IV x1 now and reassess the need for IV diuretic therapy again in the morning. 2. We will stop oral sustained-release nitrate and while in hospital replace with topical Nitropaste 1/2 inch twice daily for preload reduction 3. We will institute low-dose CASEY inhibitor for afterload reduction: Enalapril 2.5 mg twice daily 4. in the evaluation of newly diagnosed cardiomyopathy with moderate left ventricular systolic dysfunction and high baseline CHD risk, will plan for cardiac catheterization on Saturday. We will plan for n.p.o. tomorrow after midnight. Code(s): I42.9 - Cardiomyopathy, unspecified (3) Diabetes mellitus: Assessment/Problem Details: Add significantly to the patient's baseline CHD risk. Plan: Plan as above. Code(s): E11.9 - Type 2 diabetes mellitus without complications (4) Hyperlipidemia: Assessment/Problem Details: Stable on statin therapy. Plan: Maintain statin therapy at current dosing for now. We will decide on potential intensification of statin therapy based on the results of the patient's forthcoming cardiac catheterization. Code(s): E78.5 - Hyperlipidemia, unspecified Plan Thank you very much for this kind consultation and for allowing me to participate in the care of this very pleasant but obviously quite challenging patient. Documented By: Brandt Petit MD 01/20/22 1227 Signed By: <Electronically signed by Brandt Petit MD> 01/20/22 2110 [facility] Work Phone: 1(827) 893-432103-19-2022 History and physical note Author Pola Anders [facility] January 20, 2022 6:26am Note Date/Time January 20, 2022 2:4 5am [facility] [address] [place] [address] Hospitalist H&P Signed Patient: Remedios Magaña MR#: [id number] : 1955 Acct:[id number] Age/Sex: 66 / M Adm Date: 2 Loc: Room: [address] [place] [address] Type : ADM IN Attending Dr: Pola Anders MD Copies to: MD Tirso Chew MD~ HPI DATE OF EXAMINATION: 01/20/22 CHIEF COMPLAINT: chest pain HISTORY OF PRESENT ILLNESS: Patient is a 66-year-old gentleman past medical history of diabetes diet- controlled, hyperlipidemia, BPH, reformed smoker was recommended to go to [facility] after he was found to have atrial flutter on EKG done at his PCPs office. Patient states that he has been having intermittent left-sided chest pain for the past few weeks which can happen with/without exertion and last for couple minutes and subsides with rest. He also noticed drenching sweats when hewakes up in the morning intermittently for the past few weeks. Occasionally he also felt fluttering sensation in his chest. He finally went to see his primarycare physician where he was found to be in atrial flutter and was recommended [facility]. EKG done there showed changes suspicious for ACS, ED physician spoke to cardiology here and was recommended to transfer here for further evaluation and management. Patient currently comfortable at rest saturating 98% on 2 L. He currently denies any chest pain, shortness of breath,cough, palpitations, lightheadedness, headache, nausea, vomiting, abdominal pain, urinary complaints, fever and chills. He is an ex-smoker, quit smoking 4 months ago. He drinks 12 pack of beer daily. States that he does not get any withdrawal symptoms if he does not drink for a day or 2. He does not use any recreational drugs Review of Systems Review of Systems All other systems reviewed & are negative unless noted below or in HPI [facility] Medical History (Updated 01/20/22 @ 02:46 by Pola Anders MD) Diabetes mellitus GERD (gastroesophageal reflux disease) Hyperlipidemia Macular degeneration Surgical History (Updated 01/20/22 @ 02:21 by Marsha Gates RN) Hx of appendectomy Family History (Updated 01/20/22 @ 02:31 by Marsha Gates RN) Other No significant family history Meds Medications and Allergies Allergies No Known Allergies Allergy (Verified 01/20/22 02:42) Home Medications apixaban 5 mg tablet (Eliquis) 5 mg PO BID 01/20/22 [History Confirmed 01/20/22] isosorbide mononitrate 60 mg tablet,extended release 24 hr 30 mg PO DAILY 01/20/22 [History Confirmed 01/20/22] metoprolol tartrate 50 mg tablet 50 mg PO BID 01/20/22 [History Confirmed 01/20/22] pantoprazole 40 mg tablet,delayed release 40 mg PO DAILY 01/20/22 [History Confirmed 01/20/22] pyridoxine (vitamin B6) 100 mg tablet (Vitamin B-6) 100 mg PO DAILY 01/20/22 [History Confirmed 01/20/22] simvastatin 20 mg tablet 20 mg PO DAILY 01/20/22 [History Confirmed 01/20/22] tamsulosin 0.4 mg capsule 0.4 mg PO DAILY 01/20/22 [History Confirmed 01/20/22] vit C 250 mg-vit E 90 mg-zinc 40 mg-copper 1 ra-jpbdnx-sdblht capsule (PreserVision AREDS-2) 1 tab PO BID 01/20/22 [History Confirmed 01/20/22] Exam Physical Exam Vital Signs: Temp Pulse Resp BP Pulse Ox 98.1 F 73 18 102/6 L 98 01/20/22 02:09 01/20/22 02:09 01/20/22 02:09 01/20/22 02:09 01/20/22 02:09 Narrative: General: Awake, alert, oriented x3 not in acute distress HEENT: Normocephalic, atraumatic, PERRLA, normal mucosa Cardiovascular: Regular rate and rhythm , S1-S2 heard, no murmurs or gallops Lungs: No wheezing or rhonchi heard Gastrointestinal: Soft, nontender, bowel sounds heard Extremities: No edema Neurological: no sensory or motor deficit Skin: Dry and warm, no rashes or lesions Psych: Normal mood and affect A&P - Hospitalist Assessment/Plan (1) Atrial flutter: (2) Hyperlipidemia: (3) Diabetes mellitus: (4) Chronic alcohol use: Plan Patient currently comfortable at rest, saturating 98% on 2 L and is hemodynamically stable Labs reviewed from [facility] which are essentially normal including TSH and Troponin Obtain lipid panel, A1c, echo Consult cardiology Ordered routine labs Telemetry Fall precautions CIWA protocol Resume heparin drip that has been started at [facility] DVT prophylaxis CODE STATUS full code. Documented By: Pola Anders MD 01/20/22 0238 Signed By: <Electronically signed by Pola Anders MD> 01/20/22 0626 [facility] Work Phone: Discharge summary Author Marcus Recinos [facility] March 27, 2022 9:20am Note Date/Time March 27, 2022 9:20a m [facility] [address] [place], [place] [id number] Discharge Summary Signed Patient: Remedios Magaña MR#: [id number] : 1955 Acct:[id number] Age/Sex: 66 / M Adm Date: 2 Loc: EL Room: Attending Dr: Marcus Recinos MD Copies to: MD Marcus Sommer MD, [facility]~ Providers Date of Discharge: 03/27/22 Discharging Provider: Marcus Recinos Primary Care Provider: Tirso Frausto Discharge Diagnosis Final Diagnosis Final Discharge Diagnosis: Successful cardioversion from atrial flutter to sinus rhythm Summary Hospital Course Hospital course: Outpatient procedure Time Spent with Patient Time spent providing/coordinating discharge services (# min): 20 Diagnostic Studies Completed and Pending Studies Labs on day of discharge: 03/27/22 08:05: Sodium 135 L, Potassium 4.7, Chloride 99, Carbon Dioxide 25.4 Discharge Plan Discharge Plan Patient Disposition: Home Activity: Ambulate as Tolerated Comment: Do not drive a car today Diet: Low-Fat and Low-Sodium Prescriptions: New amiodarone 200 mg tablet 200 mg PO DAILY 30 Days Qty: 30 RF: 11 metoprolol succinate [Toprol XL] 50 mg tablet extended release 24 hr 50 mg PO DAILY 30 Days Qty: 30 RF: 11 Continued Eliquis 5 mg tablet 5 mg PO BID RF: 0 tamsulosin 0.4 mg capsule 0.4 mg PO DAILY RF: 0 pantoprazole 40 mg tablet,delayed release (DR/EC) 40 mg PO DAILY RF: 0 simvastatin 20 mg tablet 20 mg PO DAILY RF: 0 PreserVision AREDS-2 250-90-40-1 mg Capsule 1 tab PO BID RF: 0 spironolactone 25 mg tablet 12.5 mg PO QAM 30 Days Qty: 15 RF: 12 furosemide [Lasix] 40 mg tablet 40 mg PO DAILY PRN (Reason: weight gain) 30 Days Qty: 30 RF: 6 Discontinued amiodarone 200 mg Tablet 200 mg PO BID RF: 0 metoprolol succinate [Toprol XL] 50 mg tablet extended release 24 hr 100 mg PO DAILY RF: 0 Documented By: Marcus Recinos MD, [facility] 2 919 Signed By: <Electronically signed by MD HAFSA Recinos> 03/27/22 09 [facility] Work Phone: Evaluation + Plan note No data available for this section [facility] Diagnosis Onset Date Resolution Status Atrial flutter acute Cardiomyopathy acute Chronic alcohol use acute Diabetes mellitus acute Hyperlipidemia acute [facility] Work Phone: Evaluation noteNo assessment information available [facility] Work Phone: Evaluation noteNo InformationNort [employer] Other Evaluation note* Diagnosis Atrial flutter, unspecified type (CMS/HCC)- Primary Benign essential hypertension Essential hypertension, benign High risk medication use Hyperlipidemia, unspecified hyperlipidemia type Pulmonary emphysema, unspecified emphysema type (CMS/HCC) Coronary artery disease involving [place] coronary artery of [place] heart without angina pectoris Obesity, Class I, BMI 30-34.9 documented in this encounter [facility] Work Phone: [facility] Work [facility] Work Phone: [facility] Work Phone: Progress note No data available for this section [facility] Chief Complaint and Reason for Visit Chief Complaint Chest Pain, Afib Reason for Visit Atrial flutter Cardiomyopathy Chronic alcohol use Diabetes mellitus Hyperlipidemia Chief Complaint Chest Pain, Afib Screening hx smoking Reason for Visit Atrial flutter Cardiomyopathy Chronic alcohol use Diabetes mellitus Hyperlipidemia Chief Complaint Chest Pain, Afib Screening hx smoking Pre Op Testing for Cardioversion Reason for Visit Atrial flutter Cardiomyopathy Chronic alcohol use Diabetes mellitus Hyperlipidemia Chief Complaint Chest Pain, Afib Screening hx smoking Pre Op Testing for Cardioversion a flutter Reason for Visit Atrial flutter Cardiomyopathy Chronic alcohol use Diabetes mellitus Hyperlipidemia Chief Complaint Pre Op Testing for C ardioversion a flutter i48.92 z79.899 Advance Directives No Advanced Directives Records Found Advance Directive Response Recorded Date/ Time Advance Directives No January 20 022 12:25am Chief Complaint * REMEDIOS MAGAÑA is being seen for follow-up of a hospitalization for atrial fibrillation. * Patient is in the office for follow after being seen recently at the hospital with atrial flutter of recent onset and dyspnea on exertion where he underwent diagnostic cardiac catheterization by Dr. Brandt Petit that demonstrated normal CAD. The cath report showed ejection fraction 35% but the echoc ardiogram which I read read ejection fraction 55%. The patient has macular degeneration being caredfor by ophthalmology. He has been on anticoagulation with Eliquis and rate control with metoprolol.He remains tachycardic with a heart rate just over 100 bpm. He has no side effect of medications. He denies orthopnea PND or lower extremity edema. His medical therapy was reviewed and the findings of cardiac catheterization and recent admission was discussed with the patient and his daughter. Apart from irregularly irregular rhythm and mild obesity his physical examination was unremarkable. * Assessment/recommendations: * 1 recent onset atrial flutter with slow rapid ventricular response. We will increase metoprolol up to 200 mg daily and continue the Eliquis. Patient has been anticoagulated long enough to initiate therapy with amiodarone 200 mg twice daily trying to restore normal sinus rhythm. ECG will be done in next few days and based on the results decide on schedule cardioversion if necessary. Avoid hypotension and since his echocardiogram showed normal ejection fraction for the time being I will eliminatethe enalapril. * 2 mild CAD with no interventions needed. We will continue on simvastatin 20 mg daily. And follow lipid profile * 3 high risk medication with Eliquis and amiodarone. Both will be followed closely. * 4 macular degeneration followed by ophthalmology. Patient is here for EKG ordered by Dr. Marcus Recinos MD due to AFIB. Dr. Darwin Perdomo, DO in suite. Patient is here due to medication change and to see if he is still in AFIB. Medication list reviewed and updated verbally. Pt has no complaints. EKG reviewed by Balwinder Scales RN. To Dr. Marcus Recinos MD for review.[place] [facility] [place] in [place]* S/P CARDIOVERSION. * REMEDIOS MAGAÑA is being seen for a 2 month follow-up of. * Patient is in the office with his for follow-up after recent cardioversion restoring normal sinus rhythm. EKG confirmed normal sinus rhythm he is currently on amiodarone with normal QTc interval. There has been no breakthrough events. Due to insurance coverage he will be switched from Eliquis to Xarelto. He quit smoking recently after many years of tobacco use and his examination today reveals evidence of COPD. He is not wheezing but has diminished breath sounds. His weight remains above target and its working progress. His blood pressure is under control. * Assessment/recommendations: * 1 history of atrial flutter status post successful cardioversion and maintaining sinus rhythm on amiodarone. Currently anticoagulated with Eliquis and will be switched to Xarelto due to insurance request * 2 mild CAD with no interventions needed. We will continue on simvastatin 20 mg daily. And follow lipid profile * 3 high risk medication with anticoagulation and amiodarone. Both will be followed closely. * 4 macular degeneration followed by ophthalmology. * 5 hyperlipidemia on statin therapy * 6 COPD from history of excessive tobacco use in the past [place] [facility] [place] in JulyAmiodarone [facility] 2022* REMEDIOS MAGAÑA is being seen for a 6 month follow-up of. * Patient is in the office for follow-up for the problems noted below. He continues to have symptoms of dyspnea related to advanced COPD. He ended smoking 1 year ago. There has not been any indication of recurrent atrial fibrillation on amiodarone. I did review with the patient the amiodarone surveillance testing with the most remarkable abnormalities in his PFTs. His lab data otherwise were unremarkable. His lipid profile therefore was ordered since it was not included. His weight remains above target and his physical examination is remarkable for significantly diminished breath sounds. EKG rev ealed normal sinus rhythm. His blood pressure is under control. He seem to have no significant sideeffect of medications. His medical therapy was felt to be adequate with him with full testing or changes. Annual PFT and chest x-ray will be scheduled. * Assessment/recommendations: * 1 history of atrial flutter with rapid ventricular response. Currently on metoprolol, amiodarone and Coumadin managed by the Coumadin clinic with therapeutic INR, no breakthrough atrial fibrillation.No changes are needed.. * 2 mild CAD with no interventions needed. We will continue on simvastatin 20 mg daily. Lipid profileis due and was ordered. * 3 high risk medication with Coumadin and amiodarone. Both will be followed closely. * 4 macular degeneration followed by ophthalmology. * 5 advanced COPD due to heavy previous tobacco abuse. Patient utilizes inhaler therapy but continuedto have dyspnea on exertion. * 6 hypertension on medical therapy under control. * 7 obesity, encouraged the patient to work harder on losing weight with more aggressive diet. [facility] order sent [facility] for January 2023* Patient in the office today for an EKG per Dr. Darwin Perdomo DO due to being dx with Covid and started on Paxlovid with his Amiodarone. Patient took his last dose of Paxlovid yesterday and did hold his Amiodarone yesterday. He denies any cardiac symptoms at this time. EKG reviewed per Corrina Scales RN * TO Dr. Darwin Perdomo DO * TO Dr. Marcus Recinos MD FYI * Enclosed you will find an order form to have your testing completed at a facility of your choice. It is necessary for you to have lab work. These tests are needed if you are on one of the following medications: Cordarone, Pacerone, or Amiodarone. * If you are unable to have these test done please contact our office at [phone] and press option #4 so that we may assist you in the problems. * Thank you for your compliance with this testing. * The Staff * [facility] * Please have done July 2023 Family History Unknown Family Member Name Dates Details Family history of migraine h eadaches: Sister(V17.2, Z82.0) Status:Active Family history of cardiac pa cemaker: Brother(V17.49, Z82.49) Status:Active : Mother, Father Status:Active Family history of malignant neoplasm of breast: Mother(V16.3, Z80.3) Status:Active Family history of hypertensi on: Father(V17.49, Z82.49) Status:Active Unknown Family Member Name Dates Details Family history of cardiac pa cemaker: Brother(V17.49, Z82.49) Status:Active Family history of migraine h eadaches: Sister(V17.2, Z82.0) Status:Active Family history of hypertensi on: Father(V17.49, Z82.49) Status:Active Family history of malignant neoplasm of breast: Mother(V16.3, Z80.3) Status:Active : Mother, Father Status:Active No Family History Records FoundUnknown Family Member Name Dates Details : Mother, Father Status:Active Family history of malignant neoplasm of breast: Mother(V16.3, Z80.3) Status:Active Family history of hypertensi on: Father(V17.49, Z82.49) Status:Active Family history of migraine h eadaches: Sister(V17.2, Z82.0) Status:Active Family history of cardiac pa cemaker: Brother(V17.49, Z82.49) Status:Active Summary Purpose Reason for Referral Specialty Diagnoses / Procedures Referred By Contac t Referred To Contact Diagnoses Atrial flutter, unspecified type ([facility]/HCC) Procedures ECG 12 Lead Marcus Recinos MD [address] [place] [address] 2, [place] [phone] Referral ID Status Reason Start Date Expiration Date V isits Requested Visits Authorized [id number] Authorized 12/04/2023 12/03/2024 1 1 Specialty Diagnoses / Procedures Referred By Contac t Referred To Contact Cardiology Diagnoses Benign essential hypertension Atrial flutter, unspecified type ([facility]/HCC) Procedures Follow Up In Cardiology Marcus Recinos MD [address] [place] [address] 2, [address] [address] Marcus Recinos MD [address] [place] [address] 2, [address] [address] Referral ID Status Reason Start Date Expiration Date V isits Requested Visits Authorized [id number] Authorized 12/04/2023 12/03/2024 1 1 Additional Source Comments Care Teams (unrecognized sec tion and content) Team Status: Inactive Member Role Status Juliet Frausto MD Primary Care Provider Active Pola Anders MD Admit Provider Active Jin Berkowitz MD Attending Provider Active Team Status: Active Member Role Status Juliet Frausto MD Primary Care Provider Active Team Status: Inactive Member Role Status Juliet Frausto MD Primary Care Provider Active Ama Morrison MD Attending Provider Active Team Status: Inactive Member Role Status Juliet Frausto MD Primary Care Provider Active Marcus Recinos MD Attending Provider Active Team Status: Inactive Member Role Status Juliet Frausto MD Primary Care Provider Active Marcus Recinos MD Attending Provider, Referring Prov ider Active 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 PCP - General 11/04/99 (unrecognized sect ion and content) No Status Records FoundNo Status Records FoundNo Status Records FoundNo Status Records FoundNo Status Records FoundNo Status Records Found INFORMATION SOURCE (unrecogn ized section and content) DATE CREATED AUTHOR 04/25/2022 [employer] DATE CREATED AUTHOR AUTHOR'S ORGANIZ ATION 04/26/2022 [facility] DATE CREATED AUTHOR AUTHOR'S ORGANIZ ATION 02/10/2023 [facility] DATE CREATED AUTHOR AUTHOR'S ORGANIZ ATION 03/15/2023 [facility] DATE CREATED AUTHOR AUTHOR'S ORGANIZ ATION 04/12/2023 [facility] DATE CREATED AUTHOR AUTHOR'S ORGANIZ ATION 12/08/2023 [facility] Ambulatory Goals (unrecognized section and content) Goals may be documented in a n alternate section REASON FOR VISIT (unrecogniz ed section and content) Reason Comments Follow-up 6 months Specialty Diagnoses / Procedures Referred By Contac t Referred To Contact Diagnoses Atrial flutter, unspecified type (CMS/HCC) Procedures ECG 12 Lead Marcus Recinos MD [address] [place] [address] 2, [address] [address] Referral ID Status Reason Start Date Expiration Date V isits Requested Visits Authorized [id number] Authorized 12/04/2023 12/03/2024 1 1 FOR RECORDS PERTAINING TO PATIENTS WHO ARE OR HAVE BEEN ENROLLED IN A CHEMICAL DEPENDENCY/SUBSTANCEABUSE PROGRAM, SOME INFORMATION MAY BE OMITTED. This clinical summary was aggregated from multiple sources. Caution should be exercised in using it in the provision of clinical care. This summary normalizes information from multiple sources, and as a consequence, information in this document may materially change the coding, format and clinical context of patient data. In addition, data may be omitted in some cases. CLINICAL DECISIONS SHOULD BE BASED ON THE PRIMARY CLINICAL RECORDS. [facility] [employer] provides no warranty or guarantee of the accuracy or completeness of information in this document.
[2024-01-09 12:20] LABS: Hemoglobin 13.1 g/dL (14.0-18.0)
--- NOTE | 2024-01-09 12:39 | XR_ITS ---
The [address] [address] Patient Name: REMEDIOS VAUGHAN MRN: [id number] date: 1955 Sex: M Assigned Patient Location: LAB Current Patient Location: LAB Accession/Order Number: [id number] Exam Date: 01/09/2024 12:30 Report Date: 01/09/2024 12:51 At the request of: MARIA ESTHER CORTES Procedure: XR chest 2V PROCEDURE: XR chest 2V DATE: 01/09/2024 11:30 AM REGISTERED NURSES COMPARISONS: 01/10/2023 CLINICAL INDICATION: 68 years Male high risk medication use Z79.899, Atrial flutter I48.92 FINDINGS: The cardiomediastinal silhouette and pulmonary vasculature are within normal limits. There are a few scattered granulomata of the lungs, stable. Lungs are otherwise clear. There is no evidence of pleural effusion or pneumothorax. Old right sixth rib fracture, stable. Stable mild thoracic spondylosis XR/XR chest 2V IMPRESSION: Stable chest. Electronically authenticated by: AMOL RICHMOND Date: 01/09/2024 12:51
[2024-01-09 13:25] LABS: Anion Gap 15.3; Aspartate Amino Transferase 74 U/L (15-37); Chloride 101 mmol/L (98-107); Glucose 126 mg/dL (74-106); Potassium 4.3 mmol/L (3.5-5.1); Sodium 139 mmol/L (136-145); Thyroid Stimulating Hormone 5.043 uIU/mL (0.358-3.740)
[2024-01-09] MEDS: ALBUTEROL SULFATE 2.5 MG/3 ML VIAL NEB IH (13:25)
[2024-01-09 13:32] LABS: BUN Creatinine Ratio 14.2; Calcium 8.7 mg/dL (8.5-10.1); Estimated GFR (African America >60 (>=60); Estimated GFR (Non-African Ame >60 (>=60)
== END 2024-01-09 12:11 | disposition home or self-care (01) ==
LOC: LAB 12:10
PROVIDERS: PCP Family Medicine; Visit Provider Internal Medicine Cardiovascular Disease
DX: I48.92 Unspecified atrial flutter (principal); Z79.899 Other long term (current) drug therapy
CPT/HCPCS: 36415; 71046; 80048; 84443; 84450; 85018; 94060; 94729

== ENCOUNTER 2024-02-13 09:08 | Outpatient (OUT) | payer MEDICARE, SELFPAY ==
[2024-02-13 09:36] LABS: Basophils Absolute Auto 0.1 10^3/uL (0.0-0.1); Basophils Percent Auto 2.1 % (0.2-2.0); Eosinophils Absolute Auto 0.1 10^3/uL (0.0-0.7); Hematocrit 43.2 % (42.0-54.0); Hemoglobin 13.5 g/dL (14.0-18.0); Immature Granulocytes Abs Auto 0.02 10^3/uL (0.00-0.03); Immature Granulocytes Pct Auto 0.4 % (0.0-0.5); Lymphocytes Absolute Auto 1.1 10^3/uL (1.2-3.8); Lymphocytes Percent Auto 22.2 % (20.5-60.0); Mean Corpuscular HGB Conc 31.3 g/dL (29.9-35.2); Mean Corpuscular Hemoglobin 26.3 pg (25.9-34.0); Mean Corpuscular Volume 84.2 fL (80.0-94.0); Mean Platelet Volume 10.2 fL (9.5-13.5); Monocytes Absolute Auto 0.7 10^3/uL (0.3-0.8); Monocytes Percent Auto 14.6 % (1.7-12.0); Neutrophils Absolute Auto 2.7 10^3/uL (1.4-6.5); Neutrophils Percent Auto 57.7 % (43.0-75.0); Platelet Count 251 10^3/uL (150-450); Red Blood Count 5.13 10^6/uL (4.70-6.10); Red Cell Distribution Width 14.7 % (11.0-15.0); White Blood Count 4.7 10^3/uL (4.0-11.0)
[2024-02-13 10:19] LABS: Chol HDL Ratio 2.9; Cholesterol 192 mg/dL (<=200); Free T3 2.34 pg/mL (2.18-3.98); HDL Cholesterol 66 mg/dL (40-60); Thyroid Stimulating Hormone 4.246 uIU/mL (0.358-3.740); Triglycerides 94 mg/dL (<=150); VLDL CHOLESTEROL 18.8 mg/dL
[2024-02-13 10:59] LABS: Estimated Average Glucose 151 mg/dL; Glycohemoglobin A1C 6.9 % (4.5-6.2)
[2024-02-13 12:06] LABS: Prostate Specific Antigen Scrn 1.05 ng/mL (<=4.00)
[2024-02-13 12:28] LABS: Influenza Virus A Antigen Negative; Influenza Virus B Antigen Negative; Internal Control Within Normal Limits; SARS-CoV-2 Ag NEGATIVE (NEGATIVE)
[2024-02-13 14:10] LABS: SARS-CoV-2 NAA NOT DETECTED (NOT DETECTE)
[2024-02-14 10:08] LABS: Insulin 24.5 uIU/mL (2.6-24.9)
== END 2024-02-13 09:09 | disposition home or self-care (01) ==
LOC: LAB 09:09
PROVIDERS: PCP Family Medicine; Visit Provider Family Medicine
DX: Z12.5 Encounter for screening for malignant neoplasm of prostate (principal); E78.5 Hyperlipidemia, unspecified; Z12.12 Encounter for screening for malignant neoplasm of rectum; R73.09 Other abnormal glucose; E03.9 Hypothyroidism, unspecified; J01.90 Acute sinusitis, unspecified
CPT/HCPCS: 36415; 80061; 83036; 83525; 84436; 84443; 84481; 85025; 87635; 87804; 87811; G0103

== ENCOUNTER 2024-02-17 11:32 | Outpatient (REF) | payer MEDICARE, SELFPAY ==
[2024-02-17 12:40] LABS: Occult Blood Positive
== END 2024-02-17 11:33 | disposition home or self-care (01) ==
LOC: LAB 11:32
PROVIDERS: PCP Family Medicine; Visit Provider Family Medicine
DX: E78.5 Hyperlipidemia, unspecified (principal); Z12.5 Encounter for screening for malignant neoplasm of prostate; Z12.12 Encounter for screening for malignant neoplasm of rectum; R73.09 Other abnormal glucose
CPT/HCPCS: G0328

== ENCOUNTER 2024-03-05 11:22 | Outpatient (REF) | payer MEDICARE, SELFPAY ==
[2024-03-05 12:06] LABS: Influenza Virus A Antigen Negative; Influenza Virus B Antigen Negative; Internal Control Within Normal Limits; Respiratory Syncytial Virus Not Detected (NOT DETECTE); SARS-CoV-2 Ag NEGATIVE (NEGATIVE)
== END 2024-03-05 11:23 | disposition home or self-care (01) ==
LOC: LAB 11:22
PROVIDERS: PCP Family Medicine; Visit Provider Nurse Practitioner Family
DX: J20.9 Acute bronchitis, unspecified (principal)
CPT/HCPCS: 87420; 87502; 87635; 87804; 87811

== ENCOUNTER 2024-03-11 10:39 | Outpatient (OUT) | payer MEDICARE, SELFPAY ==
--- OUTSIDE RECORDS SUMMARY | 2024-03-11 10:59 | XMS_ITS | CCD ---
Author Organization [facility] Care Team Providers Care Rn Ante Partum Name Role Phone MD Tirso Frausto Primary Care Provider [phone] MD Pola Anders Admit Provider MD Jin Berkowitz Attending Provider MD Ama Morrison Attending Provider Tirso Frausto Unavailable Unavailable Unavailable MD Marcus Recinos Attending Provider MD Marcus Recinos Referring Provider Tirso Frausto Primary Care Physician Unavailable Unavailable MD Tirso Frausto Primary Care Provider [phone] Jina Rios Unavailable Carlos A Salazar Unavailable Victoria Mujica Unavailable Olga Phipps Unavailable Dr. Tirso Frausto Primary Care Unavail able Marcus Recinos Attending Unavailable Marcus Recinos Referring Unavailable Dr. Tirso Frausto Primary Care Unavail able Marcus Recinos Attending Unavailable Marcus Recinos Referring Unavailable Marcus Recinos Attending Unavailable Dr. Tirso Frausto Primary Care Unavail able Marcus Recinos Referring Unavailable Marcus Recinos Attending Unavailable Dr. Tirso Frausto Primary Care Unavail able Conor, Dr. Darwin Gee Attending Unava ilable Conor, Dr. Darwin Gee Referring Unava ilable Dr. Tirso Frausto Primary Care Unavail able Marcus Recinos Referring Unavailable Dr. Tirso Frausto Primary Care Unavail able Jorje, Marcus Attending Unavailable REQUEST, NONE LISTED Primary Care Unavaila ble HOY ., DR CHAHAL Consulting Unavailable HOY ., DR CHAHAL Attending Unavailable HOY ., DR CHAHAL Admitting Unavailable FESTUS, STANFROD Consulting Unavailable RECINOS, DR MARCUS Rivera Attending [...] Rivera Consulting Unavailable RECINOS, DR MARCUS Rivera Consulting Unavailable RECINOS, DR MARCUS Rivera Attending Unavailable RECINOS, DR MARCUS Rivera Admitting Unavailable REQUEST, DR NONE LISTED Primary Care Unavaila ble RECINOS, DR MARCUS Rivera Attending Unavailable RECINOS, DR MARCUS Rivera Admitting Unavailable REQUEST, DR NONE LISTED Primary Care Unavaila ble DEE [...] Marcus Admitting Unavailable Recinos, Marcus Attending Unavailable Tirso Frausto Primary Care Unavailable Recinos, Marcus Admitting Unavailable Recinos, Marcus Attending Unavailable Tirso Frausto Primary Care Unavailable Recinos, Marcus Admitting Unavailable Recinos, Marcus Attending Unavailable Tirso Frausto Primary Care Unavailable Tirso Frausto MD Primary Care Provider MARCUS RECINOS Attending Unavailable TIRSO FRAUSTO Primary Care Unavailable Allergies Allergy Classification Reported Allergen(s) Allergy Type Date of Onset Reaction(s) Facility (12 sources) Ciprofloxacin; Translations: [Ciprofloxacin] Drug Allergy 03-27-2022 [facility] (14 sources) Ciprofloxacin; Translations: [Cipro XR] Drug Allergy [facility] DO Work Phone: (1 source) Ciprofloxacin Drug Allergy 04-19-2015 [facility] (2 sources) Ciprofloxacin; Translations: [CIPROFLOXACIN (MIXTURE)] Drug Allergy 10-14-2023 [facility] Work Phone: Medications Current Medications Medication Drug [...] ascorbic acid 226 mg / beta carotene 43736 unt / cuprous oxide 0.8 mg / dl-alpha tocopheryl acetate 200 unt / zinc oxide 34.8 mg oral capsule (2 sources) Vitamin C Start: 04-16-2022 take 1 capsule by mouth once daily PreserVision AREDS oral capsule 1 cap, Oral, Daily, Prophylaxis Start Date: 04/16/22 Status: Ordered take 1 tablet by kyle th every twelve hours vitamins A,C,D-zruh-wgijfo (PreserVision AREDS) 2,148 mcg-113 mg-45 mg-17.4mg tablet [...] Active 12.5 MG PO Every morning 15 30 January 23, 2022 9:25am take 0.5 tablet by m outh once daily spironolactone (Aldactone) 25 mg tablet Take 0.5 tablets (12.5 mg) by mouth once daily. 0 Active tamsulosin hydrochloride 0.4 mg oral capsule (20 sources) alpha-Adrenergic Clare Start: 01-04-2021 End: 12-04-2023 take 0.4 mg by mouth once daily Tamsulosin Active 0.4 MG PO Daily January 20, 2022 12:00am Vit C,M-Md-Vbajx-Lutein- Zeaxan (Preservision Areds-2) 250-90-40-1 mg Capsule (6 sources) Start: 01-20-2022 Vit C,G-Cp-Jcyjj-Lut ein-Zeaxan (Preservision Areds-2) 250-90-40-1 mg Capsule Active 1 TAB PO Twice daily January 20, 2022 2:13am Start: 01-20-2022 Vit C,E-Zn-Supervisor [employer] vx-Qlnazp-Nvbrfv (Preservision Areds-2) 250-90-40-1 mg Capsule Active 1 TAB PO Twice daily January 20, 2022 12:00am Completed/Discontinued Medications Medication Drug Class(es) Dates Sig (Normalized) Sig (Original) [id number] actuat albuterol 0.09 mg/actuat metered dose [...] extended release oral tablet (20 sources) beta-Adrenergic Calre Start: 11-08-2022 take 1 tablet by mouth [...] 24 hr Active 50 MG PO Daily March 27, 2022 12:00am Start: 01-20-2022 End: [...] 100 MG PO Daily January 20, 2022 2:13March 27, 2022 8:27am warfarin sodium 4 mg oral tablet (10 sources) Vitamin K Antagonist Start: Warfarin Sodium 4 MG Oral Tablet 1 tablet daily - being referred to [facility] to manage Quantity: 30 Refills: [...] Coronary arteriosclerosis; 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] 12-04-2023 Chronic [...] medications] Episodic Other aftercare (7 sources) Other care home (current) drug therapy; Translations: [OTH DEBUBBLIZER CURRENT DRUG THERAPY] Onset: 10-22-2022 Episodic Other aftercare (2 sources) Taking high risk medication; Translations: [Other care home (current) drug therapy] Onset: 10-14-2023 12-04-2023 Episodic [...] Test Name Value Interpretation Reference Range Facility Physician Referralon 024 Physician Referral [id number] Normal [facility] ECG 12 Leadon 12-04-2023 ECG revealed normal sinus rhythm with first-degree AV block and left axis deviation [facility] Work Phone: GLYCOHEMOGLOBIN A1Con 2022 ADA RECOMMENDATION SEE BELOW Normal [facility] Comment on above: Result Comment: ADA RECOMMENDED LIMIT 4.0 - 6.0 ADA THERAPEUTIC TARGET < 7.0 ACTION SUGGESTED > 7.0 Performed By: #### A 1C #### [facility] [address] [place] [address] Dr. Igor Hayes Glucose [Mass/Vol] 137 mg/dL Normal [facility] Comment on above: Performed By: #### A 1C #### [facility] [address] [address] [address] Igor Hayes HbA1c (Bld) [Mass fraction] 6.4 % Critically high 4.5-6.2 [facility] Comment on above: Performed By: #### A 1C #### [facility] [address] [address] [address] Igor Hayes LIPID PROFILEon 03-08-2023 CHOL-HDL RATIO NORM SEE BELOW Normal [facility] Comment on above: Result Comment: 3.3 - 4.4 LOW RISK 4.4 - 7.1 AVERAGE RISK 7.1 - 11.0 MODERATE RISK >11.0 HIGH RISK Performed By: #### A 1C #### [facility] [address] [place] [address] Dr. Igor Hayes Cholesterol [Mass/Vol] 181 mg/dL Normal <=200 [facility] Comment on above: Performed By: #### A 1C #### [facility] [address] [address] [address] Igor Hayes Cholesterol in HDL [Mass/Vol] 64 mg/dL Critically high 40-60 [facility] Comment on above: Performed By: #### A 1C #### [facility] [address] [address] [address] Igor Hayes Cholesterol in LDL [Mass/Vol] 99.2 mg/dL Normal [facility] Comment on above: Performed By: #### A 1C #### [facility] [address] [address] [address] Igor Hayes Cholesterol.total/Ch olesterol in HDL [Mass ratio] 2.8 {ratio} Normal [facility] Comment on above: Performed By: #### A 1C #### [facility] [address] [address] [address] Igor Hayes HDL NORMAL > or = 60 mg/dl - LO W CARDIOVASCULAR RISK <40 mg/dl - HIGH CARDIOVASCULAR RISK Normal [facility] Comment on above: Performed By: #### A 1C #### [facility] [address] [address] [address] Igor Hayes LDL CALC NORMAL SEE BELOW Normal [facility] Comment on above: Result Comment: <100 mg/dl OPTIMAL 100 - 129 mg/dl NEAR OR ABOVE OPTIMAL 130 - 159 mg/dl BORDERLINE HIGH 160 - 189 mg/dl HIGH >190 mg/dl VERY HIGH Performed By: #### A 1C #### [facility] [address] [address] [address] Igor Hayes Triglyceride [Mass/Vol] 89 mg/dL Normal <=150 [facility] Comment on above: Performed By: #### A 1C #### [facility] [address] [address] [address] Igor Hayes VLDL CALC 17.8 mg/dL Normal [facility] Comment on above: Performed By: #### A 1C #### [facility] [address] [address] [address] Igor Hayes INFLUENZA A AND B AGon 02-01 INFLUANEGH SEE BELOW Normal [facility] Comment on above: Result Comment: Nega tive for Flu A protein angiten. Infection due to Flu A cannot be ruled out. Flu A angiten in the sample may be below the detection limit of the test. Performed By: #### O BSCRN #### [facility] [address] [place] [address] Dr. Igor Hayes INFLUBNEGH SEE BELOW Normal [facility] Comment on above: Result Comment: Nega tive for Flu B protein antigen. Infection due to Flu B cannot be ruled out. Flu B antigen in the sample may be below the detection limit of the test. Performed By: #### O BSCRN #### [facility] [address] [place] [address] Dr. Igor Hyaes INFLUENZA A AG Negative Normal NEGATIVE SEE COMMENT [facility] Comment on above: Performed By: #### O BSCRN #### [facility] [address] [place] [address] Dr. Igor Hayes INFLUENZA B AG Negative Normal NEGATIVE SEE COMMENT [facility] Comment on above: Performed By: #### O BSCRN #### [facility] [address] [place] [address] Dr. Igor Hayes SYMPTOMATIC COVID-19 ANTIGEN on 02-01-2023 EUA Statement SEE BELOW Normal [facility] Comment on above: Result Comment: [...] sooner. Performed By: #### A 1C #### [facility] [address] [place] [address] Dr. Igor Hayes SARS-CoV-2 (COVID-19) RNA VERONIQUE+probe Ql (Unsp spec) Positive Abnormal NEGATIVE [facility] Comment on above: Performed By: #### A 1C #### [facility] [address] [place] [address] Dr. Igor Hayes HEMOGLOBINon 01-10-2023 Hemoglobin (Bld) [Mass/Vol] 14.4 g/dL Normal 14.0-18.0 [facility] Comment on above: Performed By: #### H GB #### [facility] [address] [place] [address] Dr. Igor Hayes PROF CHEM 8 (BAS METB)on Anion gap [Moles/Vol] 8.4 mmol/L Normal [facility] Comment on above: Performed By: #### O BSCRN #### [facility] [address] [place] [address] Dr. Igor Hayes Calcium [Mass/Vol] 8.9 mg/dL Normal 8.5-10.1 [facility] Comment on above: Performed By: #### O BSCRN #### [facility] [address] [place] [address] Dr. Igor Hayes Chloride [Moles/Vol] 103 mmol/L Normal 98-107 [facility] Comment on above: Performed By: #### O BSCRN #### [facility] [address] [place] [address] Dr. Igor Hayes CO2 [Moles/Vol] 31.2 mmol/L Normal 21.0-32.0 [facility] Comment on above: Performed By: #### O BSCRN #### [facility] [address] [place] [address] Dr. Igor Hayes Creatinine [Mass/Vol] 1.02 mg/dL Normal 0.70-1.30 [facility] Comment on above: Performed By: #### O BSCRN #### [facility] [address] [place] [address] Dr. Igor Hayes EGFR-AF BRAZILIAN >60 Normal >=[address] [facility] Comment on above: Performed By: #### O BSCRN #### [facility] [address] [address] [address] Igor Hayes EGFR-NON AF BRAZILIAN >60 Normal >=60 [facility] Comment on above: Performed By: #### O BSCRN #### [facility] [address] [address] [address] Igor Hayes Glucose [Mass/Vol] 133 mg/dL Critically high 74-106 [facility] Comment on above: Performed By: #### O BSCRN #### [facility] [address] [address] [address] Igor Hayes Potassium [Moles/Vol] 4.6 mmol/L Normal 3.5-5.1 [facility] Comment on above: Performed By: #### O BSCRN #### [facility] [address] [address] [address] Igor Hayes Sodium [Moles/Vol] 138 mmol/L Normal 136-145 [facility] Comment on above: Performed By: #### O BSCRN #### [facility] [address] [address] [address] Igor Hayes Urea nitrogen [Mass/Vol] 17.0 mg/dL Normal 7.0-18.0 [facility] Comment on above: Performed By: #### O BSCRN #### [facility] [address] [address] [address] Igor Hayes Urea nitrogen/Creatinine [Mass ratio] 16.7 mg/mg Normal [facility] Comment on above: Performed By: #### O BSCRN #### [facility] [address] [address] [address] Igor Hayes SGOTon 01-10-2023 AST [Catalytic activity/Vol] 36 U/L Normal 15-37 [facility] Comment on above: Performed By: #### O BSCRN #### [facility] [address] [address] [address] Igor Hayes TSHon 01-10-2023 TSH 4.230 uIU/mL Critically high 0.358-3.74 0 [facility] Comment on above: Performed By: #### O BSCRN #### [facility] [address] [address] [address] Igor Hayes XR CHEST 2 Von [...] by: DEE BARTON Date: 2023-01-10 13:02 Normal [facility] Prothrombin Time INRon 01-01 INR Coag (PPP) [Relative time] 2.9 {INR} [employer] Other Prothrombin Time INR [facility] [employer] Other Prothrombin Time INRon 12-10 INR Coag (PPP) [Relative time] 2.7 {INR} [employer] Other Prothrombin Time INR [facility] [employer] Other Prothrombin Time INRon 11-26 INR Coag (PPP) [Relative time] 2.6 {INR} [employer] Other Prothrombin Time INR [facility] [employer] Other Prothrombin Time INRon 11-15 INR Coag (PPP) [Relative time] 3.2 {INR} [employer] Other Prothrombin Time INR [facility] [employer] Other LIPID PROFILEon 11-14-2022 CHOL-HDL RATIO NORM SEE BELOW Normal [facility] Comment on above: Result Comment: 3.3 - 4.4 LOW RISK 4.4 - 7.1 AVERAGE RISK 7.1 - 11.0 MODERATE RISK >11.0 HIGH RISK Performed By: #### O BSCRN #### [facility] [address] [address] [address] Igor Hayes Cholesterol [Mass/Vol] 186 mg/dL Normal <=200 [facility] Comment on above: Performed By: #### O BSCRN #### [facility] [address] [address] [address] Igor Hayes Cholesterol in HDL [Mass/Vol] 64 mg/dL Critically high 40-60 [facility] Comment on above: Performed By: #### O BSCRN #### [facility] [address] [address] [address] Igor Hayes Cholesterol in LDL [Mass/Vol] 99.0 mg/dL Normal [facility] Comment on above: Performed By: #### O BSCRN #### [facility] [address] [address] [address] Igor Hayes Cholesterol.total/Ch olesterol in HDL [Mass ratio] 2.9 {ratio} Normal [facility] Comment on above: Performed By: #### O BSCRN #### [facility] [address] [address] [address] Igor Hayes HDL NORMAL > or = 60 mg/dl - LO W CARDIOVASCULAR RISK <40 mg/dl - HIGH CARDIOVASCULAR RISK Normal [facility] Comment on above: Performed By: #### O BSCRN #### [facility] [address] [address] [address] Igor Hayes LDL CALC NORMAL SEE BELOW Normal [facility] Comment on above: Result Comment: <100 mg/dl OPTIMAL 100 - 129 mg/dl NEAR OR ABOVE OPTIMAL 130 - 159 mg/dl BORDERLINE HIGH 160 - 189 mg/dl HIGH >190 mg/dl VERY HIGH Performed By: #### O BSCRN #### [facility] [address] [address] [address] Igor Hayes Triglyceride [Mass/Vol] 115 mg/dL Normal <=150 [facility] Comment on above: Performed By: #### O BSCRN #### [facility] [address] [address] [address] Igor Hayes VLDL CALC 23.0 mg/dL Normal [facility] Comment on above: Performed By: #### O BSCRN #### [facility] [address] [place] [address] Dr. Igor Hayes Tobacco Screening.on 023 Adult depression screening assessment No [facility] DO Work Phone: Fall risk assessment a) No falls within the last year [facility] 250 DO Work Phone: Tobacco use status [facility] b) No [facility] DO Work Phone: AMMONIAon 11-02-2022 Ammonia (P) [Moles/Vol] 12 umol/L Normal 11-32 [facility] Comment on above: Performed By: #### A 1C #### [facility] [address] [place] [address] Dr. Igor Hayes PROF 14(COMP METB)on 022 Albumin [Mass/Vol] 3.9 g/dL Normal 3.4-5.0 [facility] Comment on above: Performed By: #### A 1C #### [facility] [address] [place] [address] Dr. Igor Hayes Albumin/Globulin [Mass ratio] 1.1 {ratio} Normal [facility] Comment on above: Performed By: #### A 1C #### [facility] [address] [place] [address] Dr. Igor Hayes ALP [Catalytic activity/Vol] 48 U/L Normal 46-116 [facility] Comment on above: Performed By: #### A 1C #### [facility] [address] [place] [address] Dr. Igor Hayes ALT [Catalytic activity/Vol] 70 U/L Critically high 16-63 [facility] Comment on above: Performed By: #### A 1C #### [facility] [address] [place] [address] Dr. Igor Hayes Anion gap [Moles/Vol] 13.5 mmol/L Normal [facility] Comment on above: Performed By: #### A 1C #### [facility] [address] [place] [address] Dr. Igor Hayes AST [Catalytic activity/Vol] 41 U/L Critically high 15-37 [facility] Comment on above: Performed By: #### A 1C #### [facility] [address] [place] [address] Dr. Igor Hayes Bilirubin [Mass/Vol] 0.6 mg/dL Normal 0.2-1.0 [facility] Comment on above: Performed By: #### A 1C #### [facility] [address] [place] [address] Dr. Igor Hayes Calcium [Mass/Vol] 9.0 mg/dL Normal 8.5-10.1 [facility] Comment on above: Performed By: #### A 1C #### [facility] [address] [place] [address] Dr. Igor Hayes Chloride [Moles/Vol] 102 mmol/L Normal 98-107 [facility] Comment on above: Performed By: #### A 1C #### [facility] [address] [place] [address] Dr. Igor Hayes CO2 [Moles/Vol] 28.9 mmol/L Normal 21.0-32.0 [facility] Comment on above: Performed By: #### A 1C #### [facility] [address] [place] [address] Dr. Igor Hayes Creatinine [Mass/Vol] 1.14 mg/dL Normal 0.70-1.30 [facility] Comment on above: Performed By: #### A 1C #### [facility] [address] [place] [address] Dr. Igor Hayes EGFR-AF BRAZILIAN >60 Normal >=[address] [facility] Comment on above: Performed By: #### A 1C #### [facility] [address] [place] [address] Dr. Igor Hayes EGFR-NON AF BRAZILIAN >60 Normal >=60 [facility] Comment on above: Performed By: #### A 1C #### [facility] [address] [place] [address] Dr. Igor Hayes Globulin (S) [Mass/Vol] 3.7 g/dL Normal [facility] Comment on above: Performed By: #### A 1C #### [facility] [address] [address] [address] Igor Hayes Glucose [Mass/Vol] 166 mg/dL Critically high 74-106 T [facility] Comment on above: Performed By: #### A 1C #### [facility] [address] [address] [address] Igor Hayes Potassium [Moles/Vol] 4.4 mmol/L Normal 3.5-5.1 [facility] Comment on above: Performed By: #### A 1C #### [facility] [address] [address] [address] Igor Hayes Protein [Mass/Vol] 7.6 g/dL Normal 6.4-8.2 [facility] Comment on above: Performed By: #### A 1C #### [facility] [address] [place] [address] Dr. Igor Hayes Sodium [Moles/Vol] 140 mmol/L Normal 136-145 [facility] Comment on above: Performed By: #### A 1C #### [facility] [address] [place] [address] Dr. Igor Hayes Urea nitrogen [Mass/Vol] 18.0 mg/dL Normal 7.0-18.0 [facility] Comment on above: Performed By: #### A 1C #### [facility] [address] [place] [address] Dr. Igor Hayes Urea nitrogen/Creatinine [Mass ratio] 15.8 mg/mg Normal [facility] Comment on above: Performed By: #### A 1C #### [facility] [address] [address] [address] Igor Hayes HEMOGLOBINon 10-22-2022 Hemoglobin (Bld) [Mass/Vol] 15.3 g/dL Normal 14.0-18.0 [facility] Comment on above: Performed By: #### A 1C #### [facility] [address] [place] [address] Dr. Igor Hayes PROF CHEM 8 (BAS METB)on Anion gap [Moles/Vol] 12.9 mmol/L Normal [facility] Comment on above: Performed By: #### A ST, BMP, TSH #### [facility] [address] [place] [address] Dr. Igor Hayes Calcium [Mass/Vol] 9.2 mg/dL Normal 8.5-10.1 [facility] Comment on above: Performed By: #### A ST, BMP, TSH #### [facility] [address] [place] [address] Dr. Igor Hayes Chloride [Moles/Vol] 103 mmol/L Normal 98-107 [facility] Comment on above: Performed By: #### A ST, BMP, TSH #### [facility] [address] [place] [address] Dr. Iogr Hayes CO2 [Moles/Vol] 29.7 mmol/L Normal 21.0-32.0 [facility] Comment on above: Performed By: #### A ST, BMP, TSH #### [facility] [address] [place] [address] Dr. Igor Hayes Creatinine [Mass/Vol] 1.16 mg/dL Normal 0.70-1.30 [facility] Comment on above: Performed By: #### A ST, BMP, TSH #### [facility] [address] [place] [address] Dr. Igor Hayes EGFR-AF BRAZILIAN >60 Normal >=60 [facility] Comment on above: Performed By: #### A ST, BMP, TSH #### [facility] [address] [place] [address] Dr. Igor Hayes EGFR-NON AF BRAZILIAN >60 Normal >=60 [facility] Comment on above: Performed By: #### A ST, BMP, TSH #### [facility] [address] [place] [address] Dr. Igor Hayes Glucose [Mass/Vol] 125 mg/dL Critically high 74-106 [facility] Comment on above: Performed By: #### A ST, BMP, TSH #### [facility] [address] [place] [address] Dr. Igor Hayes Potassium [Moles/Vol] 4.6 mmol/L Normal 3.5-5.1 [facility] Comment on above: Performed By: #### A ST BMP, TSH #### [facility] [address] [address] [address] Igor Hayes Sodium [Moles/Vol] 141 mmol/L Normal 136-145 [facility] Comment on above: Performed By: #### A ST BMP, TSH #### [facility] [address] [address] [address] Igor Hayes Urea nitrogen [Mass/Vol] 17.0 mg/dL Normal 7.0-18.0 [facility] Comment on above: Performed By: #### A ST BMP, TSH #### [facility] [address] [place] [address] Dr. Igor Hayes Urea nitrogen/Creatinine [Mass ratio] 14.7 mg/mg Normal [facility] Comment on above: Performed By: #### A ST BMP, TSH #### [facility] [address] [address] [address] Igor Hayes SGOTon 10-22-2022 AST [Catalytic activity/Vol] 49 U/L Critically high 15-37 [facility] Comment on above: Performed By: #### A ST BMP, TSH #### [facility] [address] [place] [address] Dr. Igor Hayes TSHon 10-22-2022 TSH 4.171 uIU/mL Critically high 0.358-3.74 0 [facility] Comment on above: Performed By: #### A ST BMP, TSH #### [facility] [address] [place] [address] Dr. Igor Hayes US SINGLE QUAD RT [...] STANFORD MORTENSEN Date: 2022-10-22 20:43 Normal [facility] XR CHEST 2 Von 10-22-2022 [...] STAN[place] MORT[place]EN Date: 2022-10-22 20:38 Normal [facility] INSULINon 10-10-2022 Insulin 19.8 uIU/mL Normal 2.6-24.9 [facility] Comment on above: Performed By: #### A 1C #### [facility] [address] [place] [address] Dr. Igor Hayes CBC AUTO DIFFon 10-09-2022 BASO # 0.1 103/ul Normal 0.0-0.1 [facility] Comment on above: Performed By: #### A 1C #### [facility] [address] [place] [address] Dr. Igor Hayes Basophils/100 WBC (Bld) 1.7 % Normal 0.2-2.0 [facility] Comment on above: Performed By: #### A 1C #### [facility] [address] [place] [address] Dr. Igor Hayes EO # 0.2 103/ul Normal 0.0-0.7 [facility] Comment on above: Performed By: #### A 1C #### [facility] [address] [place] [address] Dr. Igor Hayes Eosinophils/100 WBC (Bld) 3.1 % Normal 0.9-7.0 [facility] Comment on above: Performed By: #### A 1C #### [facility] [address] [place] [address] Dr. Igor Hayes Erythrocyte distribution width (RBC) [Ratio] 12.9 % Normal 11.0-15.0 [facility] Comment on above: Performed By: #### A 1C #### [facility] [address] [place] [address] Dr. Igor Hayes Hematocrit (Bld) [Volume fraction] 45.5 % Normal 42.0-54.0 [facility] Comment on above: Performed By: #### A 1C #### [facility] [address] [place] [address] Dr. Igor Hayes Hemoglobin (Bld) [Mass/Vol] 15.1 g/dL Normal 14.0-18.0 [facility] Comment on above: Performed By: #### A 1C #### [facility] [address] [place] [address] Dr. Igor Hayes IG # 0.01 10e3/ul Normal 0.00-0.03 [facility] Comment on above: Performed By: #### A 1C #### [facility] [address] [place] [address] Dr. Igor Hayes IG % 0.2 % Normal 0.0-0.5 [facility] Comment on above: Performed By: #### A 1C #### [facility] [address] [place] [address] Dr. Igor Hayes LYMPH # 1.2 103/ul Normal 1.2-3.8 [facility] Comment on above: Performed By: #### A 1C #### [facility] [address] [place] [address] Dr. Igor Hayes Lymphocytes/100 WBC (Bld) 23.9 % Normal 20.5-60.0 [facility] Comment on above: Performed By: #### A 1C #### [facility] [address] [place] [address] Dr. Igor Hayes MANUAL DIFF REQ NO Normal [facility] Comment on above: Performed By: #### A 1C #### [facility] [address] [address] [address] Igor Hayes MCH (RBC) [Entitic mass] 29.3 pg Normal 25.9-34.0 [facility] Comment on above: Performed By: #### A 1C #### [facility] [address] [place] [address] Dr. Igor Hayes MCHC (RBC) [Mass/Vol] 33.2 g/dL Normal 29.9-35.2 [facility] Comment on above: Performed By: #### A 1C #### [facility] [address] [place] [address] Dr. Igor Hayes MCV (RBC) [Entitic vol] 88.2 fL Normal 80.0-94.0 [facility] Comment on above: Performed By: #### A 1C #### [facility] [address] [place] [address] Dr. Igor Hayes MONO # 0.6 103/ul Normal 0.3-0.8 [facility] Comment on above: Performed By: #### A 1C #### [facility] [address] [place] [address] Dr. Igor Hayes Monocytes/100 WBC (Bld) 12.3 % Critically high 1.7-12.0 [facility] Comment on above: Performed By: #### A 1C #### [facility] [address] [place] [address] Dr. Igor Hayes NEUT # 3.1 103/ul Normal 1.4-6.5 [facility] Comment on above: Performed By: #### A 1C #### [facility] [address] [place] [address] Dr. Igor Hayes Neutrophils/100 WBC (Bld) 58.8 % Normal 43.0-75.0 [facility] Comment on above: Performed By: #### A 1C #### [facility] [address] [place] [address] Dr. Igor Hayes Platelet mean volume (Bld) [Entitic vol] 10.0 fL Normal 9.5-13.5 [facility] Comment on above: Performed By: #### A 1C #### [facility] [address] [place] [address] Dr. Igor Hayes PLT 234 103/ul Normal 150-450 [facility] Comment on above: Performed By: #### A 1C #### [facility] [address] [place] [address] Dr. gIor Hayes RBC 5.16 106/ul Normal 4.70-6.10 [facility] Comment on above: Performed By: #### A 1C #### [facility] [address] [place] [address] Dr. Igor Hayes WBC 5.2 103/ul Normal 4.0-11.0 [facility] Comment on above: Performed By: #### A 1C #### [facility] [address] [place] [address] Dr. Igor Hayes GLYCOHEMOGLOBIN A1Con 2021 ADA RECOMMENDATION SEE BELOW Normal [facility] Comment on above: Result Comment: ADA RECOMMENDED LIMIT 4.0 - 6.0 ADA THERAPEUTIC TARGET < 7.0 ACTION SUGGESTED > 7.0 Performed By: #### A 1C #### [facility] [address] [place] [address] Dr. Igor Hayes Glucose [Mass/Vol] 123 mg/dL Normal [facility] Comment on above: Performed By: #### A 1C #### [facility] [address] [place] [address] Dr. Igor Hayes HbA1c (Bld) [Mass fraction] 5.9 % Normal 4.5-6.2 [facility] Comment on above: Performed By: #### A 1C #### [facility] [address] [place] [address] Dr. Igor Hayes OCC BLD IMMUNO SCREENon OCCULT BLOOD Negative Normal NEGATIVE [facility] Comment on above: Performed By: #### O BSCRN #### [facility] [address] [place] [address] Dr. Igor Hayes PROF 14(COMP METB)on 022 Albumin [Mass/Vol] 3.9 g/dL Normal 3.4-5.0 [facility] Comment on above: Performed By: #### U THUY, CMP #### [facility] [address] [address] [address] Igor Hayes Albumin/Globulin [Mass ratio] 1.0 {ratio} Normal [facility] Comment on above: Performed By: #### U THUY, CMP #### [facility] [address] [address] [address] Igor Hayes ALP [Catalytic activity/Vol] 45 U/L Critically low 46-116 [facility] Comment on above: Performed By: #### U THUY, CMP #### [facility] [address] [address] [address] Igor Hayes ALT [Catalytic activity/Vol] 83 U/L Critically high 16-63 [facility] Comment on above: Performed By: #### U THUY, CMP #### [facility] [address] [address] [address] Igor Hayes Anion gap [Moles/Vol] 11.6 mmol/L Normal [facility] Comment on above: Performed By: #### U THUY, CMP #### [facility] [address] [place] [address] Dr. Igor Hayes AST [Catalytic activity/Vol] 44 U/L Critically high 15-37 [facility] Comment on above: Performed By: #### U THUY, CMP #### [facility] [address] [address] [address] Igor Hayes Bilirubin [Mass/Vol] 0.7 mg/dL Normal 0.2-1.0 [facility] Comment on above: Performed By: #### U THUY, CMP #### [facility] [address] [address] [address] Igor Hayes Calcium [Mass/Vol] 8.8 mg/dL Normal 8.5-10.1 [facility] Comment on above: Performed By: #### U THUY, CMP #### [facility] [address] [address] [address] Igor Hayes Chloride [Moles/Vol] 102 mmol/L Normal 98-107 [facility] Comment on above: Performed By: #### U THUY, CMP #### [facility] [address] [address] [address] Igor Hayes CO2 [Moles/Vol] 29.1 mmol/L Normal 21.0-32.0 [facility] Comment on above: Performed By: #### U THUY, CMP #### [facility] [address] [address] [address] Igor Hayes Creatinine [Mass/Vol] 1.02 mg/dL Normal 0.70-1.30 [facility] Comment on above: Performed By: #### U THUY, CMP #### [facility] [address] [address] [address] Igor Hayes EGFR-AF BRAZILIAN >60 Normal >=60 [facility] Comment on above: Performed By: #### U THUY, CMP #### [facility] [address] [address] [address] Igor Hayes EGFR-NON AF BRAZILIAN >60 Normal >=60 [facility] Comment on above: Performed By: #### U THUY, CMP #### [facility] [address] [place] [address] Dr. Igor Hayes Globulin (S) [Mass/Vol] 3.9 g/dL Normal [facility] Comment on above: Performed By: #### U THUY, CMP #### [facility] [address] [address] [address] Igor Hayes Glucose [Mass/Vol] 132 mg/dL Critically high 74-106 [facility] Comment on above: Performed By: #### U THUY, CMP #### [facility] [address] [address] [address] Igor Hayes Potassium [Moles/Vol] 4.7 mmol/L Normal 3.5-5.1 [facility] Comment on above: Performed By: #### U THUY, CMP #### [facility] [address] [address] [address] Igor Hayes Protein [Mass/Vol] 7.8 g/dL Normal 6.4-8.2 [facility] Comment on above: Performed By: #### U THUY, CMP #### [facility] [address] [address] [address] Igor Hayes Sodium [Moles/Vol] 138 mmol/L Normal 136-145 [facility] Comment on above: Performed By: #### U THUY, CMP #### [facility] [address] [address] [address] Igor Hayes Urea nitrogen [Mass/Vol] 16.0 mg/dL Normal 7.0-18.0 [facility] Comment on above: Performed By: #### U THUY, CMP #### [facility] [address] [place] [address] Dr. Igor Hayes Urea nitrogen/Creatinine [Mass ratio] 15.7 mg/mg Normal [facility] Comment on above: Performed By: #### U THUY, CMP #### [facility] [address] [address] [address] Igor Hayes URIC ACID SERUMon 10-09-2022 Urate [Mass/Vol] 4.9 mg/dL Normal 3.5-7.2 [facility] Comment on above: Performed By: #### U THUY, CMP #### [facility] [address] [place] [address] Dr. Igor Hayes Aspartate Amino Transferaseo n 07-30-2022 AST [Catalytic activity/Vol] 44 U/L High 10-42 [facility] Comment on above: Order Comment: PT FA STED 12 HRS Performed By: #### T SH3, BMP, AST #### [facility] [address] Basic Metabolic Panelon 07-06 Anion gap [Moles/Vol] 13.1 mmol/L Normal 6.0-15.0 [facility] Comment on above: Order Comment: PT FA STED 12 HRS Performed By: #### T SH3, BMP, AST #### [facility] [address] Calcium [Mass/Vol] 9.4 mg/dL Normal 8.2-10.2 [facility] Comment on above: Order Comment: PT FA STED 12 HRS Performed By: #### T SH3, BMP, AST #### [facility] [address] [place] [address] [place] Chloride [Moles/Vol] 101 mmol/L Normal 95-114 [facility] Comment on above: Order Comment: PT FA STED 12 HRS Performed By: #### T SH3, BMP, AST #### [facility] [address] [place] [address] [place] CO2 [Moles/Vol] 27.5 mmol/L Normal 22.0-30.0 [facility] Comment on above: Order Comment: PT FA STED 12 HRS Performed By: #### T SH3, BMP, AST #### [facility] [address] Creatinine [Mass/Vol] 1.03 mg/dL Normal 0.64-1.27 [facility] Comment on above: Order Comment: PT FA STED 12 HRS Performed By: #### T SH3, BMP, AST #### [facility] [address] [place] [address] [place] Estimated GFR ( Mary > 60 Normal [facility] Comment on above: Order Comment: PT FA STED 12 HRS Result Comment: GFR estimated reference range: According to KDOQI guidelines, <60 ml/min/1.73m2 is sufficient to diagnose a patient with chronic kidney disease. Performed By: #### T SH3, BMP, AST #### [facility] [address] [place] [address] [place] Estimated GFR (Non- Am > 60 [facility] Comment on above: Order Comment: PT FA STED 12 HRS Performed By: #### T SH3, BMP, AST #### [facility] [address] [place] [address] [place] Glucose [Mass/Vol] 111 mg/dL High 70-100 [facility] Comment on above: Order Comment: PT FA STED 12 HRS Result Comment: [place] om Glucose Reference Range is dependent on time and content of last meal. Glucose of more than 200 mg/dL in a nonstressed, ambulatory subject supports the diagnosis of Diabetes Mellitus. ADA recommended reference range Performed By: #### T SH3, BMP, AST #### [facility] [address] Potassium [Moles/Vol] 4.6 mmol/L Normal 3.5-5.1 [facility] Comment on above: Order Comment: PT FA STED 12 HRS Performed By: #### T SH3, BMP, AST #### [facility] [address] Sodium [Moles/Vol] 137 mmol/L Normal 136-146 [facility] Comment on above: Order Comment: PT FA STED 12 HRS Performed By: #### T SH3, BMP, AST #### [facility] [address] Urea nitrogen [Mass/Vol] 15 mg/dL Normal 9-23 [facility] Comment on above: Order Comment: PT FA STED 12 HRS Performed By: #### T SH3, BMP, AST #### [facility] [address] No Panel Informationon 07-30 13.1\S\13.1 Normal 6.0-15.0 [facility] [address] DO Work Phone: 9.4\S\9.4 Normal 8.2-10.2 [facility] [address] DO Work Phone: [phone] 27.5\S\27.5 Normal 22.0-30.0 [facility] [address] DO Work Phone: [phone] 101\S\101 Normal 95-114 [facility] 250 DO Work Phone: [phone] 4.6\S\4.6 Normal 3.5-5.1 [facility] [address] DO Work Phone: [phone] 137\S\137 Normal 136-146 [facility] [address] DO Work Phone: > 60 Normal [facility] [address] DO Work Phone: Comment on above: GFR estimated refere nce range: According to KDOQI guidelines, <60 ml/min/1.73m2 is sufficient to diagnose a patient with chronic kidney disease. 1.03\S\1.03 Normal 0.64-1.27 [facility] Katie y 250 DO Work Phone: 15\S\15 Normal 9-23 [facility] DO Work Phone: 111\S\111 above high threshold 70-100 [facility] Work Phone: Comment on above: Random Glucose Refer ence Range is dependent on time and content of last meal. Glucose of more than 200 mg/dL in a nonstressed, ambulatory subject supports the diagnosis of Diabetes Mellitus. ADA recommended reference range 44\S\44 above high threshold 10-42 [facility] DO Work Phone: 3.34\S\3.34 Normal 0.45-5.33 [facility] DO Work Phone: Comment on above: PERFORMED BY:[facility] [place], [place] [phone] MEDICAL DIRECTORSTEVEN NASH M.D. Radiologyon 07-30-2022 XR Chest 2 Views [facility] DO Work Phone: Thyroid Stimulating Hormoneo n 07-30-2022 TSH Qn 3.34 m[IU]/L Normal 0.45-5.33 [facility] Comment on above: Order Comment: PT FA STED 12 HRS Result Comment: PERF ORMED BY: [facility] [address] [place] [address] PATHOLOGIST TANK FARM OPERATOR STEVEN NASH M.D. Performed By: #### T SH3, BMP, AST #### [facility] [address] [place] [address] [place] XR chest 2V*on 07-30-2022 XR chest 2V* [facility] Main [place] [address] [place] [address] XRay Report Signed Patient: Remedios Magaña MR#: [id number] 4 : 1955 Acct:[id number] Age/Sex: 66 / M ADM Date: 07/30/22 Loc: RT Room: Type: [facility] Attending Dr: Marcus Recinos MD Copies to: Marcus Recinos MD, [facility] Ordering Provider: Marcus Recinos MD, [facility] Date of Service: 07/30/22 XR/XR chest 2V*: Z79.899, I48.92 Chest 2 views CLINICAL HISTORY: High risk medication use. COMPARISON: Chest 04/26/2022 FINDINGS: Heart is normal in size. Lungs are clear. No free air. XR/XR chest 2V* IMPRESSION: NO ACUTE CARDIOPULMONARY ABNORMALITY. Impression dictated by: Walt Miller Jr., D.OMariella07/30/2022 1:46 PM Dictation Location: [place] [address] Transcribed By: [facility] 07/30/22 1346 Dictated By: Walt Miller Jr, DO 07/30/22 1346 Signed By: 07/30/22 1346 Normal [facility] Aspartate Amino Transferaseo n 04-26-2022 AST [Catalytic activity/Vol] 46 U/L High 10-42 [facility] Comment on above: Performed By: #### T SH3, AST, BMP #### [facility] [address] [place] [address] Basic Metabolic Panelon 04-05 Calcium [Mass/Vol] 9.5 mg/dL Normal 8.2-10.2 [facility] Comment on above: Performed By: #### T SH3, AST, BMP #### [place] [address] [place] Chloride [Moles/Vol] 101 mmol/L Normal 95-114 [facility] Comment on above: Performed By: #### T SH3, AST, BMP #### [place] [address] [place] CO2 [Moles/Vol] 26.8 mmol/L Normal 22.0-30.0 [facility] Comment on above: Performed By: #### T SH3, AST, BMP #### [address] Creatinine [Mass/Vol] 1.05 mg/dL Normal 0.64-1.27 [facility] Comment on above: Performed By: #### T SH3, AST, BMP #### [address] Estimated GFR ( Mary > 60 Normal [facility] Comment on above: Result Comment: GFR estimated reference range: According to KDOQI guidelines, <60 ml/min/1.73m2 is sufficient to diagnose a patient with chronic kidney disease. Performed By: #### T SH3, AST, BMP #### [address] Estimated GFR (Non- Am > 60 Normal [facility] Comment on above: Performed By: #### T SH3, AST, BMP #### [address] Glucose [Mass/Vol] 123 mg/dL High 70-100 [facility] Comment on above: Result Comment: [place] om Glucose Reference Range is dependent on time and content of last meal. Glucose of more than 200 mg/dL in a nonstressed, ambulatory subject supports the diagnosis of Diabetes Mellitus. ADA recommended reference range Performed By: #### T SH3, AST, BMP #### [address] Potassium [Moles/Vol] 4.9 mmol/L Normal 3.5-5.1 [facility] Comment on above: Performed By: #### T SH3, AST, BMP #### [place] [address] [place] Sodium [Moles/Vol] 138 mmol/L Normal 136-146 [facility] Comment on above: Performed By: #### T SH3, AST, BMP #### [address] Urea nitrogen [Mass/Vol] 16 mg/dL Normal 07-27 [facility] Comment on above: Performed By: #### T SH3, AST, BMP #### [facility] [address] [place] [id number] [facility] Creatinine and Glomerular fi ltration rate.predicted panel (S/P/Bld)Ordered By: Marcus Recinos on 04-26-2022 Creatinine [Mass/Vol] 1.05 mg/dL 0.64-1.27 [facility] Estimated glomerular filtrat ion rate (GFR) non- AmericanOrdered By: Marcus Recinos on 04-26-2022 GFR/1.73 sq M.predicted among non-blacks MDRD (S/P/Bld) [Vol rate/Area] > 60 mL/Min [facility] No Panel InformationOrdered By: Marcus Recinos on 04-26-2022 Estimated GFR () > 60 mL/Min [facility] Comment on above: GFR estimated refere nce range: According to KDOQI guidelines, <60 ml/min/1.73m2 is sufficient to diagnose a patient with chronic kidney disease. Pharmacy Creatinine Clearance (Chem N/A [facility] No Panel Informationon 04-26 9.5\S\9.5 Normal 8.2-10.2 [facility] 250 DO Work Phone: 26.8\S\26.8 Normal 22.0-30.0 [facility] Work Phone: 101\S\101 Normal 95-114 [facility] DO Work Phone: [phone] 4.9\S\4.9 Normal 3.5-5.1 [facility] 250 DO Work Phone: 138\S\138 Normal 136-146 [facility] 250 DO Work Phone: > 60 Normal [facility] DO Work Phone: Comment on above: GFR estimated refere nce range: According to KDOQI guidelines, <60 ml/min/1.73m2 is sufficient to diagnose a patient with chronic kidney disease. 1.05\S\1.05 Normal 0.64-1.27 [facility] 250 DO Work Phone: 16\S\16 Normal 9-23 [facility] 250 DO Work Phone: 123\S\123 above high threshold 70-100 [facility] Work Phone: Comment on above: Random Glucose Refer ence Range is dependent on time and content of last meal. Glucose of more than 200 mg/dL in a nonstressed, ambulatory subject supports the diagnosis of Diabetes Mellitus. ADA recommended reference range 46\S\46 above high threshold 10-42 [facility] 250 DO Work Phone: 4.75\S\4.75 Normal 0.45-5.33 [facility] Work Phone: Comment on above: PERFORMED BY:[facility] [place], [place] [phone] MEDICAL DIRECTORSTEVEN NASH M.D. Radiologyon 04-26-2022 XR Chest 2 Views Normal [facility] 250 DO Work Phone: Serum or plasma aspartate am inotransferase measurement (enzymatic activity/volume)Ordered By: Marcus Recinos on 04-26-2022 AST [Catalytic activity/Vol] 46 U/L 10-42 [facility] Serum or plasma calcium tiera urement (mass/volume)Ordered By: Marcus Recinos on 04-26-2022 Calcium [Mass/Vol] 9.5 mg/dL 8.2-10.2 [facility] Serum or plasma chloride marly surement (moles/volume)Ordered By: Marcus Recinos on 04-26-2022 Chloride [Moles/Vol] 101 mmol/L 95-114 [facility] Serum or plasma glucose tiera urement (mass/volume)Ordered By: Marcus Recinos on 04-26-2022 Glucose [Mass/Vol] 123 mg/dL 70-100 [facility] Comment on above: ADA recommended refe rence range Random Glucose Reference Range is dependent on time and content of last meal. Glucose of more than 200 mg/dL in a nonstressed, ambulatory subject supports the diagnosis of Diabetes Mellitus. Serum or plasma potassium me asurement (moles/volume)Ordered By: Marcus Recinos on 04-26-2022 Potassium [Moles/Vol] 4.9 mmol/L 3.5-5.1 [facility] Serum or plasma sodium measu rement (moles/volume)Ordered By: Marcus Pritchardahim on 04-26-2022 Sodium [Moles/Vol] 138 mmol/L 136-146 [facility] Serum or plasma total carbon dioxide measurement (moles/volume)Ordered By: Velazquez [facility] on 04-26-2022 CO2 [Moles/Vol] 26.8 mmol/L 22.0-30.0 [facility] Serum or plasma urea nitroge n measurement (mass/volume)Ordered By: Marcus Recinos on 04-26-2022 Urea nitrogen [Mass/Vol] 16 mg/dL 07-27 [facility] TSH DL <= 0.005 mIU/L QnOrde red By: Marcus Recinos on 04-26-2022 TSH Qn 4.75 m[IU]/L 0.45-5.33 [facility] Thyroid Stimulating Hormoneo n 04-26-2022 TSH Qn 4.75 m[IU]/L Normal 0.45-5.33 [facility] Comment on above: Result Comment: PERF ORMED BY: [place] [address] PATHOLOGIST [employer] OPERATOR STEVEN NASH M.D. Performed By: #### T SH3, AST, BMP #### [facility] [address] XR chest 2V*on 04-26-2022 XR chest 2V* [facility] [address] [place] [address] [place] [address] XRay Report Signed Patient: Remedios Magaña MR#: [id number] 4 : 1955 Acct:[id number] Age/Sex: 66 / M ADM Date: 04/26/22 Loc: RT Room: Type: [facility] Attending Dr: Marcus Recinos MD Copies to: Mracus Recinos MD, [facility] Ordering Provider: Marcus Recinos MD, [facility] Date of Service: 04/26/22 XR/XR chest 2V*: I48.92,Z79.899 PA AND LATERAL CHEST: CLINICAL HISTORY: A. Fib. skilled nursing medication use. COMPARISON: Chest 01/21/2022 FINDINGS: Heart is normal in size. Lungs are clear. No free air. Osseous structures demonstrate degenerative change. XR/XR chest 2V* IMPRESSION: NO ACUTE CARDIOPULMONARY ABNORMALITY. Impression dictated by: Walt Miller Jr., D.O.04/26/2022 1:38 PM Dictation Location: [place] [address] Transcribed By: [facility] 04/26/22 1338 Dictated By: Walt Miller Jr, DO 04/26/22 1337 Signed By: 04/26/22 1338 [facility] Office Visit (Cardiology)on 04-24-2022 Follow-up visit Diagnoses/Problems [...] in adult Healthy Weight Tips; Status:Complete; Done: [id number] SocHx: Former smoker Tobacco Use Screening; Status:Complete; Done: [id number] Unlinked Stop: predniSONE 20 MG Oral Tablet Patient Instructions By signing my name below, I, Leslie Slade LPN, Scribe, attest that this documentation has been prepared under the direction and in the presence of Dr. Marcus Recinos MD. All medical record entries made by the Price were at my direction and personally dictated [...] rashes. Neurologi (more content not included)... Normal [facility] Tobacco Screening.on 022 Adult depression screening assessment No [facility] 250 DO Work Phone: Fall risk assessment a) No falls within the last year [facility] 250 DO Work Phone: Tobacco use status [facility] b) No -[facility] 250 DO Work Phone: No Panel Informationon 03-27 135\S\135 below low threshold 136-146 [facility] 250 DO Work Phone: [phone] 4.7\S\4.7 Normal 3.5-5.1 [facility] 250 DO Work Phone: [phone] 99\S\99 Normal 95-114 [facility] 250 DO Work Phone: [phone] 25.4\S\25.4 Normal 22.0-30.0 [facility] 250 DO Work Phone: Comment on above: PERFORMED BY:[place] [address] [address] [place], [place] [phone] MEDICAL DIRECTORSTEVEN NASH M.D. Serum or plasma chloride marly surement (moles/volume)Ordered By: Marcus Recinos on 03-27-2022 Chloride [Moles/Vol] 99 mmol/L 95-114 [facility] Serum or plasma potassium me asurement (moles/volume)Ordered By: Marcus Recinos on 03-27-2022 Potassium [Moles/Vol] 4.7 mmol/L 3.5-5.1 [facility] Serum or plasma sodium measu rement (moles/volume)Ordered By: Marcus Recinos on 03-27-2022 Sodium [Moles/Vol] 135 mmol/L 136-146 [facility] Serum or plasma total carbon dioxide measurement (moles/volume)Ordered By: Marcus Recinos on 03-27-2022 CO2 [Moles/Vol] 25.4 mmol/L 22.0-30.0 [facility] COVID-19 SOFIAOrdered By: Lincoln Recinos on 03-23-2022 SARS-CoV+SARS-CoV-2 (COVID-19) Ag IA.rapid Ql (Resp) Negative Negative [facility] Comment on above: This is a duplicate Larisa SARS Antigen (TYSON) result to be used for statistical tracking purpose only. Laboratory - Microbiology an d Antimicrobial susceptibilityon 03-23-2022 SARS-CoV-2 (COVID-19) RNA VERONIQUE+probe Ql (Unsp spec) [facility] y 250 DO Work Phone: No Panel InformationOrdered By: Marcus Recinos on 03-23-2022 SARS Antigen (LFIA) [facility] No Panel Informationon 03-23 Negative Normal Negative [facility] y 250 DO Work Phone: Comment on above: This is a duplicate Larisa SARS Antigen (TYSON) result to be used for statistical tracking purpose only.PERFORMED BY:[facility] [place], [place] [phone] MEDICAL DIRECTORSTEVEN NASH M.D. Covid-19 PCR (CVDTB)on 03-04 SARS-CoV-2 (COVID-19) RNA VERONIQUE+probe Ql (Unsp spec) Not detected Normal NOT DETECTED [facility] Comment on above: Result Comment: This test is not yet approved or cleared by the [place] FDA. When there are no FDA-approved or cleared tests available, and other criteria are met, FDA can make tests available under an emergency access mechanism called an Emergency Use Authorization (EUA). The EUA for this test is supported by the [place] of Health and Human Service's (HHS's) declaration [...] SARS-CoV-2. Performed By: #### C VDTB #### [facility] Laboratory [address] [place] [address] Dr. Igor Hayes INFLUENZA A AND B AGon 03-15 INFLUANE SEE BELOW Normal [facility] Comment on above: Result Comment: Nega tive for Flu A protein angiten. Infection due to Flu A cannot be ruled out. Flu A angiten in the sample may be below the detection limit of the test. Performed By: #### O BSCRN #### [facility] [address] [place] [address] Dr. Igor Hayes INFLUBNEG SEE BELOW Normal [facility] Comment on above: Result Comment: Nega tive for Flu B protein antigen. Infection due to Flu B cannot be ruled out. Flu B antigen in the sample may be below the detection limit of the test. Performed By: #### O BSCRN #### [facility] [address] [place] [address] Dr. Igor Hayes INFLUENZA A AG Negative Normal NEGATIVE SEE COMMENT [facility] Comment on above: Performed By: #### O BSCRN #### [facility] [address] [place] [address] Dr. Igor Hayes INFLUENZA B AG Negative Normal NEGATIVE SEE COMMENT [facility] Comment on above: Performed By: #### O BSCRN #### [facility] [address] [place] [address] Dr. Igor Hayes INTERNAL CONTROLS Within Normal Limits Normal Wi thin Normal Limits [facility] Comment on above: Performed By: #### O BSCRN #### [facility] [address] [place] [address] Dr. Igor Hayes Office Visit (Cardiology)on 02-13-2022 [...] Weight Tips; Status:Complete - Retrospective Authorization; Done: 13Feb2022 Hyperlipidemia Renew: Simvastatin 20 MG Oral Tablet; TAKE 1 TABLET DAILY SocHx: Former smoker Tobacco Use Screening; Status:Complete; Done: [id number] Unspecified atrial flutter Start: Amiodarone HCl - 200 MG Oral Tablet; Take 1 tablet twice daily IO EKG Electrocardiogram- 12 Lead; Status:Complete; Done: [id number] Unlinked Stop: Digoxin 125 MCG Oral Tablet Stop: Enalapril Maleate 5 MG Oral Tablet Stop: Toprol XL 50 MG Oral Tablet Extended Release 24 Hour (Metoprolol Succinate ER) Patient Instructions By signing my name below, IYaquelin LPN, Scribe, attest that this documentation has been prepared under the direction and in the presence of Dr. Marcus Recinos MD. All medical record entries made by the Tiarraibe were at my direction and personally dictated [...] Systems Constitutio (more content not included)... Normal [facility] Tobacco Screening.on 022 Adult depression screening assessment No [facility] 250 DO Work Phone: Fall risk assessment a) No falls within the last year -[facility] 250 DO Work Phone: Tobacco use status CP b) No -[facility] 250 DO Work Phone: Glucose Glucometer (BldC) [M ass/Vol]Ordered By: Jin Berkowitz on 01-23-2022 Glucose [Mass/Vol] 155 mg/dL [facility] Comment on above: Random Glucose Refer ence Range is dependent on time and content of last meal. Glucose of more than 200 mg/dL in a nonstressed, ambulatory subject supports the diagnosis of Diabetes Mellitus. Activated partial thrombopla stin time (aPTT) in platelet poor plasma by coagulation aOrdered By: Ama Morrison on 01-22-2022 aPTT Coag (PPP) [Time] 71.1 s 25.1-36.5 [facility] Creatinine and Glomerular fi ltration rate.predicted panel (S/P/Bld)Ordered By: Ama Morrison on 01-22-2022 Creatinine [Mass/Vol] 1.04 mg/dL 0.64-1.27 [facility] Estimated glomerular filtrat ion rate (GFR) non- AmericanOrdered By: Ama Morrison on 01-22-2022 GFR/1.73 sq M.predicted among non-blacks MDRD (S/P/Bld) [Vol rate/Area] > 60 mL/Min [facility] No Panel InformationOrdered By: Jin Berkowitz on 01-22-2022 Bedside Glucose Comment Glu2: cleaned meter [facility] No Panel InformationOrdered By: Ama Morrison on 01-22-2022 Estimated GFR () > 60 mL/Min [facility] Comment on above: GFR estimated refere nce range: According to KDOQI guidelines, <60 ml/min/1.73m2 is sufficient to diagnose a patient with chronic kidney disease. Pharmacy Creatinine Clearance (Chem 82.75 [facility] Serum or plasma calcium tiera urement (mass/volume)Ordered By: Ama Morrison on 01-22-2022 Calcium [Mass/Vol] 9.4 mg/dL 8.2-10.2 [facility] Serum or plasma chloride marly surement (moles/volume)Ordered By: Ama Morrison on 01-22-2022 Chloride [Moles/Vol] 99 mmol/L 95-114 [facility] Serum or plasma glucose tiera urement (mass/volume)Ordered By: Ama Morrison on 01-22-2022 Glucose [Mass/Vol] 117 mg/dL 70-100 [facility] Comment on above: ADA recommended refe rence [...] on 01-22-2022 Potassium [Moles/Vol] 4.6 mmol/L 3.5-5.1 [facility] Serum or plasma sodium measu rement (moles/volume)Ordered By: Ama Morrison on 01-22-2022 Sodium [Moles/Vol] 139 mmol/L 136-146 [facility] Serum or plasma total carbon dioxide measurement (moles/volume)Ordered By: Ama Morrison on 01-22-2022 CO2 [Moles/Vol] 29.5 mmol/L 22.0-30.0 [facility] Serum or plasma urea nitroge n measurement (mass/volume)Ordered By: Ama Morrison on 01-22-2022 Urea nitrogen [Mass/Vol] 17 mg/dL 9-23 [facility] Basophils Auto (Bld) [#/Vol] Ordered By: Pola Anders on 01-21-2022 Basophils (Bld) [#/Vol] 0.1 10*3/uL 0.0-0.2 [facility] Basophils/100 WBC Auto (Bld) Ordered By: Pola Anders on 01-21-2022 Basophils/100 WBC (Bld) 1.2 % [facility] Blood hemoglobin measurement (mass/volume)Ordered By: Pola Anders on 01-21-2022 Hemoglobin (Bld) [Mass/Vol] 15.9 g/dL 13.0-17.0 [facility] Blood leukocytes automated c ount (number/volume)Ordered By: Pola Anders on 01-21-2022 WBC (Bld) [#/Vol] 4.9 10*3/uL 4.5-11.0 [facility] Eosinophils Auto (Bld) [#/Vo l]Ordered By: Pola Anders on 01-21-2022 Eosinophils (Bld) [#/Vol] 0.2 10*3/uL 0.0-0.45 [facility] Eosinophils/100 WBC Auto (Bl d)Ordered By: Pola Anders on 01-21-2022 Eosinophils/100 WBC (Bld) 3.1 % [facility] Erythrocyte distribution wid th Auto (RBC) [Ratio]Ordered By: Pola Anders on 01-21-2022 Erythrocyte distribution width (RBC) [Ratio] 13.4 % 12.0-14.8 [facility] Hematocrit Auto (Bld) [Volum e fraction]Ordered By: Pola Anders on 01-21-2022 Hematocrit (Bld) [Volume fraction] 46.7 % 38.8-50.0 [facility] Laboratory - Hematology and Cell countsOrdered By: Pola Anders on 01-21-2022 Nucleated RBC/100 WBC (Bld) [Ratio] 0.2 % 0-0.5 [facility] Lymphocytes Auto (Bld) [#/Vo l]Ordered By: Pola Anders on 01-21-2022 Lymphocytes (Bld) [#/Vol] 1.3 10*3/uL 1.00-4.8 [facility] Lymphocytes/100 WBC Auto (Bl d)Ordered By: Pola Anders on 01-21-2022 Lymphocytes/100 WBC (Bld) 26.4 % [facility] MCH Auto (RBC) [Entitic mass ]Ordered By: Pola Anders on 01-21-2022 MCH (RBC) [Entitic mass] 30.8 pg 27.5-35.2 [facility] MCHC Auto (RBC) [Mass/Vol]Or dered By: Pola Martita on 01-21-2022 MCHC (RBC) [Mass/Vol] 34.2 g/dL 32.5-35.6 [facility] MCV Auto (RBC) [Entitic vol] Ordered By: Pola Martita on 01-21-2022 MCV (RBC) [Entitic vol] 90.2 fL 83.5-101 [facility] Monocytes Auto (Bld) [#/Vol] Ordered By: Pola Martita on 01-21-2022 Monocytes (Bld) [#/Vol] 0.6 10*3/uL 0.0-0.8 [facility] Monocytes/100 WBC Auto (Bld) Ordered By: Pola Martita on 01-21-2022 Monocytes/100 WBC (Bld) 13.0 % [facility] Neutrophils Auto (Bld) [#/Vo l]Ordered By: Pola Martita on 01-21-2022 Neutrophils (Bld) [#/Vol] 2.8 10*3/uL 1.8-7.7 [facility] Neutrophils/100 WBC Auto (Bl d)Ordered By: Pola Martita on 01-21-2022 Neutrophils/100 WBC (Bld) 56.3 % [facility] Platelet mean volume Auto (B ld) [Entitic vol]Ordered By: Pola Martita on 01-21-2022 Platelet mean volume (Bld) [Entitic vol] 9.2 fL 6.6-10.1 [facility] Platelets Auto (Bld) [#/Vol] Ordered By: Pola Martita on 01-21-2022 Platelets (Bld) [#/Vol] 176 10*3/uL 150-450 [facility] RBC Auto (Bld) [#/Vol]Ordere d By: Pola Martita on 01-21-2022 RBC (Bld) [#/Vol] 5.18 10*6/uL 3.90-5.60 [facility] Cholesterol [Mass/volume] in Serum or PlasmaOrdered By: Pola Martita on 01-20-2022 Cholesterol [Mass/Vol] 155 mg/dL 140-200 [facility] Comment on above: Chol less than 200 m g/dl low riskChol 201-239 mg/dl borderline riskChol 240 mg/dl and greater high risk Chol less than 200 m g/dl low risk Chol 201-239 mg/dl borderline risk Chol 240 mg/dl and greater high risk Cholesterol in LDL Calc [Mas s/Vol]Ordered By: Pola Anders on 01-20-2022 Cholesterol in LDL [Mass/Vol] 82 mg/dL 0-100 [facility] Comment on above: LDL ATP III CLASSIFI [...] 01-20-2022 Cholesterol in VLDL [Mass/Vol] 31 mg/dL [facility] Glucose mean value [Mass/vol ume] in Blood Estimated from glycated hemoglobinOrdered By: Pola Anders on 01-20-2022 Average glucose Estimated from glycated hemoglobin (Bld) [Mass/Vol] 140 mg/dL [facility] Hemoglobin A1c percentageOrd ered By: Pola Anders on 01-20-2022 HbA1c (Bld) [Mass fraction] 6.5 % 4.3-5.6 [facility] Comment on above: Increased risk for d iabetes: 5.7 - 6.4diabetes: >6.4glycemic control for adults with diabetes: <7.0 Increased risk for d iabetes: 5.7 - 6.4 diabetes: >6.4 glycemic control for adults with diabetes: <7.0 Laboratory - CoagulationOrde red By: Pola Anders on 01-20-2022 PT Coag (PPP) [Time] 15.6 s 9.0-12.9 [facility] Platelet poor plasma interna tional normalized ratio (INR) by coagulation assay (relatOrdered By: Pola Anders on 01-20-2022 INR Coag (PPP) [Relative time] 1.4 {INR} [facility] Comment on above: INR Therapeutic Rang e [...] Cholesterol in HDL [Mass/Vol] 41 mg/dL 29-71 [facility] Comment on above: HDL CHOL ATP-III CLA [...] olesterol in HDL [Mass ratio] 3.8 {ratio} [facility] Triglyceride [Mass/volume] i n Serum or PlasmaOrdered By: Pola Anders on 01-20-2022 Triglyceride [Mass/Vol] 158 mg/dL 35-149 [facility] Comment on above: TRIG ATP III CLASSIF [...] High sensitivity method [Mass/Vol] 7 pg/mL 0-20 [facility] Vital Signs Date Time Vital Sign Value Performing Clinician Facility 12-04-2023 09:03-0500 Body height 182.9 cm Marcus Recinos MD Work Phone: [facility] 12-04-2023 09:03-0500 Body mass index (BMI) [Ratio] 31.46 kg/m2 Marcus Recinos MD Work Phone: [facility] 12-04-2023 09:03-0500 Body weight 105.23 kg Marcus Recinos MD Work Phone: [facility] 12-04-2023 09:03-0500 Diastolic blood pressure 72 mm[Hg] Marcus Recinos MD Work Phone: [facility] 12-04-2023 09:03-0500 Heart rate 61 /min Marcus Recinos MD Work Phone: [facility] 12-04-2023 09:03-0500 Systolic blood pressure 118 mm[Hg] Marcus Recinos MD Work Phone: [facility] 02-08-2023 10:42-0400 Body height 182.88 cm Tirso Rivera shoutr Work Phone: [facility] 250 DO Work Phone: 02-08-2023 10:42-0400 Body mass index (BMI) [Ratio] 30.65 kg/m2 Tirso Parselyy Work Phone: [facility] 250 DO Work Phone: 02-08-2023 10:42-0400 Body surface area Derived from formula 2.24 m2 Tirso M Hoy Work Phone: [facility] 250 DO Work Phone: 02-08-2023 10:42-0400 Body weight 102.51 kg Tirso M Hoy Work Phone: [facility] 250 DO Work Phone: 02-08-2023 10:42-0400 Diastolic blood pressure 83 mm[Hg] Tirso M Hoy Work Phone: [facility] 250 DO Work Phone: 02-08-2023 10:42-0400 Heart rate 54 /min Tirso M Hoy Work Phone: [facility] 250 DO Work Phone: 02-08-2023 10:42-0400 Systolic blood pressure 128 mm[Hg] Tirso M Hoy Work Phone: [facility] 250 DO Work Phone: 11-08-2022 11:01-0500 Body height 182.88 cm Tirso M Hoy Work Phone: [facility] 250 DO Work Phone: 11-08-2022 11:01-0500 Body mass index (BMI) [Ratio] 30.92 kg/m2 Tirso M Hoy Work Phone: [facility] 250 DO Work Phone: 11-08-2022 11:01-0500 Body surface area Derived from formula 2.25 m2 Tirso M Hoy Work Phone: [facility] 250 DO Work Phone: 11-08-2022 11:01-0500 Body weight 103.42 kg Tirso M Hoy Work Phone: [facility] 250 DO Work Phone: 11-08-2022 11:01-0500 Diastolic blood pressure 72 mm[Hg] Tirso M Hoy Work Phone: [facility] 250 DO Work Phone: 11-08-2022 11:01-0500 Heart rate 49 /min Tirso M Hoy Work Phone: [facility] 250 DO Work Phone: 11-08-2022 11:01-0500 Systolic blood pressure 110 mm[Hg] Tirso M Hoy Work Phone: [facility] 250 DO Work Phone: 04-24-2022 14:21-0400 Body height 182.88 cm Tirso M Hoy Work Phone: [facility] 250 DO Work Phone: 04-24-2022 14:21-0400 Body mass index (BMI) [Ratio] 30.38 kg/m2 Tirso M Hoy Work Phone: [facility] 250 DO Work Phone: 04-24-2022 14:21-0400 Body surface area Derived from formula 2.24 m2 Tirso M Hoy Work Phone: [facility] 250 DO Work Phone: 04-24-2022 14:21-0400 Body weight 101.61 kg Tirso M Hoy Work Phone: [facility] 250 DO Work Phone: 04-24-2022 14:21-0400 Diastolic blood pressure 80 mm[Hg] Tirso M Hoy Work Phone: [facility] 250 DO Work Phone: 04-24-2022 14:21-0400 Heart rate 51 /min Tirso M Hoy Work Phone: [facility] 250 DO Work Phone: 04-24-2022 14:21-0400 Systolic blood pressure 118 mm[Hg] Tirso Frausto Work Phone: [facility] DO Work Phone: 04-17-2022 12:00-0400 Body temperature 97.34 [degF] Sarath Hines [facility] 04-17-2022 12:00-0400 Diastolic blood pressure 68 mm[Hg] Sarath Menendezer [facility] 04-17-2022 12:00-0400 Heart rate 50 /min Sarath Menendezer [facility] 04-17-2022 12:00-0400 SaO2% (BldA) [Mass fraction] 96 % Sarath Hines [facility] 04-17-2022 12:00-0400 Systolic blood pressure 100 mm[Hg] Sarath Crumhler [facility] 04-17-2022 11:36-0400 Blood Pressure Location Sarath Hines [facility] 04-17-2022 11:36-0400 BP/Pulse Patient Position Sarath Hines [facility] 04-17-2022 11:36-0400 Diastolic blood pressure 75 mm[Hg] Sarath Menendezer [facility] 04-17-2022 11:36-0400 Heart rate 47 /min Sarath Hines [facility] 04-17-2022 11:36-0400 Respiratory rate 18 /min Sarath Hines [facility] 04-17-2022 11:36-0400 SaO2% (BldA) [Mass fraction] 94 % Sarath Crumkarener [facility] 04-17-2022 11:36-0400 Systolic blood pressure 109 mm[Hg] Sarath Zahler [facility] 04-17-2022 11:20-0400 Blood Pressure Location Sarath Crumkarentad [facility] 04-17-2022 11:20-0400 BP/Pulse Patient Position Sarath Crumkarener [facility] 04-17-2022 11:20-0400 Diastolic blood pressure 82 mm[Hg] Sarath Shoner [facility] 04-17-2022 11:20-0400 Heart rate 47 /min Sarath Crumkarener [facility] 04-17-2022 11:20-0400 Respiratory rate 18 /min Sarath Crumkarener [facility] 04-17-2022 11:20-0400 SaO2% (BldA) [Mass fraction] 94 % Sarath Zakarener [facility] 04-17-2022 11:20-0400 Systolic blood pressure 110 mm[Hg] Sarath Shoner [facility] 04-17-2022 09:32-0400 Blood Pressure Location Sarath Zakarener [facility] 04-17-2022 09:32-0400 BP/Pulse Patient Position Sarath Shoner [facility] 04-17-2022 09:32-0400 Mean blood pressure 76 mm[Hg] Sarath Zahler [facility] 04-17-2022 09:31-0400 Body temperature 98.6 [degF] Sarath Hines [facility] 04-17-2022 09:31-0400 Mean blood pressure 79 mm[Hg] Sarath Hines [facility] 04-17-2022 09:31-0400 Respiratory rate 20 /min Sarath Hines [facility] 03-27-2022 09:00-0400 Inhaled oxygen flow rate 2 L/min Tirso Frausto Work Phone: [facility] 02-27-2022 12:16-0400 Body height 182.88 cm Tirso M Hoy Work Phone: [facility] 250 DO Work Phone: 02-27-2022 12:16-0400 Body mass index (BMI) [Ratio] 30.65 kg/m2 Tirso M Hoy Work Phone: [facility] 250 DO Work Phone: 02-27-2022 12:16-0400 Body surface area Derived from formula 2.24 m2 Tirso M Hoy Work Phone: [facility] 250 DO Work Phone: 02-27-2022 12:16-0400 Body weight 102.51 kg Tirso M Hoy Work Phone: [facility] 250 DO Work Phone: 02-27-2022 12:16-0400 Diastolic blood pressure 80 mm[Hg] Tirso M Hoy Work Phone: [facility] 250 DO Work Phone: 02-27-2022 12:16-0400 Heart rate 79 /min Tirso M Hoy Work Phone: [facility] DO Work Phone: 02-27-2022 12:16-0400 Systolic blood pressure 110 mm[Hg] Tirso Miguel Hoy Work Phone: [facility] DO Work Phone: 02-13-2022 13:01-0400 Body height 182.88 cm Tirso Miguel Hoy Work Phone: [facility] DO Work Phone: 02-13-2022 13:01-0400 Body mass index (BMI) [Ratio] 30.11 kg/m2 Tirso Miguel Hoy Work Phone: [facility] 250 DO Work Phone: 02-13-2022 13:01-0400 Body surface area Derived from formula 2.23 m2 Tirso Miguel Hoy Work Phone: [facility] DO Work Phone: 02-13-2022 13:01-0400 Body weight 100.7 kg Tirso Rivera Hoy Work Phone: [facility] 250 DO Work Phone: 02-13-2022 13:01-0400 Diastolic blood pressure 72 mm[Hg] Tirso Miguel Hoy Work Phone: [facility] DO Work Phone: 02-13-2022 13:01-0400 Heart rate 104 /min Tirso Miguel Hoy Work Phone: [facility] DO Work Phone: 02-13-2022 13:01-0400 Systolic blood pressure 104 mm[Hg] Tirso Miguel Hoy Work Phone: [facility] DO Work Phone: 01-23-2022 08:00-0400 Body temperature 97.8 [degF] MD Tirso Frausto Work Phone: [facility] 01-23-2022 08:00-0400 Diastolic blood pressure 64 mm[Hg] MD Tirso Frausto Work Phone: [facility] 01-23-2022 08:00-0400 Heart rate 73 /min MD Tirso Frausto Work Phone: [facility] 01-23-2022 08:00-0400 Respiratory rate 18 /min MD Tirso Frausto Work Phone: [facility] 01-23-2022 08:00-0400 SaO2% (BldA) [Mass fraction] 93 % MD Tirso Frausto Work Phone: [facility] 01-23-2022 08:00-0400 Systolic blood pressure 100 mm[Hg] MD Tirso Frausto Work Phone: [facility] 01-23-2022 05:57-0400 Body weight 93.1 kg MD Tirso Frausto Work Phone: [facility] 01-22-2022 08:40-0400 Inhaled oxygen flow rate 2 L/min MD Tirso Frausto Work Phone: [facility] 01-20-2022 16:12-0400 55 1 Tirso Frausto Work Phone: [facility] DO Work Phone: Comment on above: [id number] 01-20-2022 02:09-0400 Body height 182.88 cm MD Tirso Frausto Work Phone: [facility] 01-20-2022 02:09-0400 Body mass index (BMI) [Ratio] 29.9 kg/m2 MD Tirso Frausto Work Phone: [facility] Encounters Encounter Date Encounter Type Care Provider Facility Start: 12-04-2023 End: 12-04-2023 ambulatory MARCUS [facility] Start: 12-04-2023 End: 12-04-2023 Office outpatient visit 25 minutes Marcus Recinos MD Work Phone: [facility] Comment on above: Atrial flutter, unsp ecified type (CMS/HCC) (Primary Dx); Benign essential hypertension; High risk medication use; Hyperlipidemia, unspecified hyperlipidemia type; Pulmonary emphysema, unspecified emphysema type (CMS/HCC); Coronary artery disease involving minto coronary artery of minto heart without angina pectoris; Obesity, Class I, BMI 30-34.9 Start: 05-06-2023 Patient encounter procedure Tirso Frausto Work Phone: [facility] DO Work Phone: Start: 03-08-2023 End: 03-09-[address] TIRSO FRAUSTO . Facility:H1 Start: 02-08-2023 Patient encounter procedure Tirso Frausto Work Phone: [facility] DO Work Phone: Start: 02-08-[address] Darwin Perdomo Facility: Start: 02-05-2023 AUDIT Tirso Frausto Work Phone: [facility] DO Work Phone: Start: 02-01-2023 End: 02-01-2023 ambulatory NOELLE VALERA Facility:H1 Start: 01-22-2023 End: 01-22-2023 ambulatory Jina Rios Other [facility] [employer] Other Start: 01-22-2023 Telephone encounter Jina Broussard [facility] Start: 01-21-2023 Telephone encounter Tirso Frausto Work Phone: [facility] 250 DO Work Phone: Start: 01-10-2023 End: 01-11-[address] MARCUS RECINOS Facility:H1 Start: 01-01-2023 ([facility] R A/c) [facility] peat A/C Olga [facility] Start: 01-01-2023 Telephone encounter Jina [facility] Start: 01-01-2023 End: 01-02-2023 ambulatory Marcus Recinos [facility] [employer] Other Start: 12-20-2022 Patient encounter procedure Tirso Frausto Work Phone: [facility] DO Work Phone: Start: 12-10-2022 ([facility] R A/c) [facility]at [facility] Start: 12-10-2022 End: 12-10-2022 ambulatory Victoria Guanako Other [employer] Other Start: 11-26-2022 ([facility] R A/c) [facility] Re peat [facility] Start: 11-26-2022 End: 11-26-2022 ambulatory Victoria Guanako Other [employer] Other Start: 11-15-2022 ([facility] R A/c) [facility] Re peat A/C [facility] Start: 11-15-2022 End: 11-15-2022 ambulatory Carlos A Salazar Other [employer] Other Start: 11-14-2022 End: 11-15-[address] MARCUS RECINOS Facility:H1 Start: 11-08-2022 Office outpatient vi sit 25 minutes Tirso Frausto Work Phone: [facility] DO Work Phone: Start: 11-08-2022 ambulatory Marcus Recinos Facility : Start: 11-02-2022 End: 11-03-[address] TIRSO FRAUSTO . Facility:H1 Start: 11-01-2022 End: 11-01-2022 ambulatory Jina Rios Other [employer] Other Start: 11-01-2022 Telephone encounter Jina Rios [facility] Start: 10-23-2022 End: 10-24-[address] MARCUS RECINOS Facility:H1 Start: 10-22-2022 End: 10-23-[address] LACEY LISTED REQUEST Facility:H1 Start: 10-15-2022 Telephone encounter Tirso Frausto Work Phone: [facility] DO Work Phone: Start: 10-10-2022 Patient encounter procedure Tirso Frausto Work Phone: [facility] DO Work Phone: Start: 10-09-2022 End: 10-10-[address] TIRSO FRAUSTO . Facility: Start: 08-10-2022 Chart Update Tirso Frausto Work Phone: [facility] DO Work Phone: Start: 07-30-2022 End: 07-30-2022 ambulatory Marcus Recinos Facility:[facility] Start: 07-06-2022 Patient encounter procedure Tirso Frausto Work Phone: [facility] DO Work Phone: Start: 05-15-2022 Rx Renewal Tirso Frausto Work Phone: [facility] DO Work Phone: Start: 04-26-2022 Chart Update Tirso Frausto Work Phone: [facility] DO Work Phone: Start: 04-26-2022 End: 04-26-2022 ambulatory Marcus Recinos Facility:[facility] Start: 04-26-2022 End: 04-26-2022 Patient encounter procedure MD Tirso Frausto Work Phone: [facility] Start: 04-24-2022 Office outpatient vi sit 25 minutes Tirsoloreta Frausto Work Phone: [facility] DO Work Phone: Start: 04-24-2022 ambulatory Marcus Recinos Facility : Start: 04-19-2022 Rx Renewal Tirso Frausto Work Phone: [facility] 600 DO Work Phone: Start: 04-17-2022 End: 04-17-2022 Admission to same day surgery center Sarath [facility] Start: 03-28-2022 Chart Update Tirso Rivera Francosalome Work Phone: [facility] DO Work Phone: Start: 03-27-[address] Tirso Frausto Facility:[id number] Start: 03-27-2022 SURGFORMERLY [facility], Provider: Marcus Recinos, Status: Pen, Time: 9:00 AM Tirsoloreta Frausto Work Phone: [facility] DO Work Phone: Start: 03-27-2022 End: 03-27-2022 Admission to same day surgery center MD Tirso Frausto Work Phone: [facility] Start: 03-26-2022 Chart Update Tirso Frausto Work Phone: [facility] DO Work Phone: Start: 03-23-2022 End: 03-23-2022 Patient encounter procedure MD Tirso Frausto Work Phone: [facility] Start: 03-15-2022 End: 03-15-[address] TIRSO FRAUSTO . Facility:H1 Start: 03-08-2022 Patient encounter procedure Tirso Frausto Work Phone: [facility] DO Work Phone: Start: 03-01-2022 Telephone encounter Tirso Frausto Work Phone: [facility] DO Work Phone: Start: 02-27-2022 ambulatory Marcus Recinos Facility : Start: 02-27-2022 Patient encounter procedure Tirso Rivera Francosalome Work Phone: [facility] DO Work Phone: Start: 02-13-2022 Office outpatient vi sit 25 minutes Tirso Frausto Work Phone: [facility] DO Work Phone: Start: 02-13-2022 ambulatory Marcus Recinos Facility : Start: 01-25-2022 End: 01-25-2022 Patient encounter procedure MD Tirso Frausto Work Phone: [facility] [address] Start: 01-20-2022 End: 01-23-2022 Evaluation and management of inpatient MD Tirso Frausto Work Phone: [facility] [place] [facility] Procedures Date Procedure Procedure Detail Performing Clinician Start: 12-04-2023 ECG 12-LEAD MARCUS SUNSHINE Start: 12-04-2023 Ecg routine ecg w/le ast 12 lds w/i&r Marcus Recinos MD Work Phone: Start: 10-09-[address] ABHIJIT WONG REQUEST Comment on above: Performed By: #### O BSCRN #### [facility] [address] [place] [address] Dr. 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 Appendectomy Tirso M Hoy Work Phone: Appendectomy Sarath Hines Cardiac catheterization Jim las M Hoy Work Phone: Cardioversion Tirso M Hoy Work Phone: Cataract surgery Tirso M H oy Work Phone: Hernia repair Tirso M Lisbet Work Phone: Primary repair of um bilical hernia Sarath Hines Repair of ventral hernia Pablito Hines Plan of Treatment Date Care Activity Detail Author Start: 04-12-2031 Screening for malignant neoplasm of colon [facility] Start: 06-03-2024 End: 06-03-2024 Patient encounter procedure 06/03/2024 10:00 AM EDT Office Visit [facility] [address] [address] Marcus Recinos MD 703 [facility] 2, [address] [place] [address] [facility] Start: 07-05-2023 Influenza vaccination Influenza Vaccine (#1) [facility] Start: 05-29-2023 FUV, Provider: Marcus Recinos, Status: Pen, Time: 9:30 AM FUV, Provider: Marcus Recinos, Status: Pen, Time: 9:30 AM [facility] DO Work Phone: Start: 05-14-2023 FUV, Provider: Darwin Perdomo, Status: Pen, Time: 9:30 AM FUV, Provider: Darwin Perdomo, Status: Pen, Time: 9:30 AM -[facility] 250 DO Work Phone: Start: 11-08-2022 FUV, Provider: Marcus Recinos, Status: Pen, Time: 10:40 AM FUV, Provider: Marcus Recinos, Status: Pen, Time: 10:40 AM -[facility] 250 DO Work Phone: Start: 04-24-2022 FUV, Provider: Marcus Recinos, Status: Pen, Time: 2:10 PM FUV, Provider: Marcus Recinos, Status: Pen, Time: 2:10 PM -[facility] 250 DO Work Phone: Start: 03-27-2022 SURGNONUH, Provider: Marcus Recinos, Status: Pen, Time: 9:00 AM SURGNONUH, Provider: Marcus Recinos, Status: Pen, Time: 9:00 AM -[facility] 250 DO Work Phone: Start: 02-27-2022 EKG, Provider: [employer]IST[employer] 1,[id number], Status: Pen, Time: 10:00 AM EKG, Provider: [employer] 1,[id number], Status: Pen, Time: 10:00 AM [facility] DO Work Phone: Start: 2019 Abdominal aortic aneurysm screening Abdominal Aortic Aneurysm (AAA) Screening [facility] Start: 2004 Zoster Vaccines (1 of 2) Zoster Vaccines (1 of 2) [facility] Start: 1976 DTaP/Tdap/Td Vaccines (1 - Tdap) DTaP/Tdap/Td Vaccines (1 - Tdap) [facility] Start: 1972 Hepatitis C screening Hepatitis C Screening [facility] Start: 1960 Pneumococcal Vaccine: 65+ Years (1 - PCV) Pneumococcal Vaccine: 65+ Years (1 - PCV) [facility] Start: 04-30-1955 COVID-19 Vaccine (#1) COVID-19 Vaccine (#1) [facility] Start: 1954 Lipid panel Lipid Panel [facility] Start: 1954 Medicare Annual Wellness Visit Medicare Annual Wellness Visit (AWV) [facility] Start: 1954 Screening for malignant neoplasm of colon [facility] Start: 1954 Thyroid stimulating hormone measurement TSH Level [facility] Patient Education Cardiomyopathy (DC) Digoxin Enalapril Furosemide Metoprolol Spironolactone Atrial Flutter (DC) [facility] Work Phone: Patient referral [facility] Work Phone: Immunizations Immunization Date Immunization Notes Care Provider Fa carlton NEGATED: Highlighted row has not occurred!01-05-2021 influenza virus vaccine, unspecified formulation Sarath Hines [facility] Payers Date Payer Category Payer Self-pay [id number] 2019 Medicare MEDICARE MEDICAR E PART A AND B [id number] 2019-Present [address] [place] [address] [id number] 2019 Private Health Insurance AETNA S UPPLEMENTAL AETNA SENIOR SUPPLEMENT [id number] 2019-Present [address] [place] [address] [id number] 1959 Medicare [id number] 1959 Private Health Insurance [facility] [id number] 1954 Unknown [id number] [id number] .2.356 1954 Unknown [id number] 2.16.840.1.517065.3.579 .2.356 1954 Unknown [id number] 2.16.840.1.881881.3.579 .2.356 1954 Unknown [id number] 2.16.840.1.656274.3.579 .2.356 1954 Unknown [id number] 2.16.840.1.032269.3.579 .2.356 1954 Unknown [id number] 2.16.840.1.472811.3.579 .2.356 1954 Unknown [id number] 2.16.840.1.269678.3.579 .2.593 1954 Unknown [id number] 2.16.840.1.402575.3.579 .2.593 1954 Unknown [id number] 2.16.840.1.555849.3.579 .2.593 1954 Unknown [id number] 2.16.840.1.609886.3.579 .2.593 1954 Unknown [id number] 2.16.840.1.475639.3.579 .2.593 1954 Unknown [id number] 2.16.840.1.855137.3.579 .2.593 1954 Unknown [id number] 2.16.840.1.968437.3.579 .2.593 1954 Unknown [id number] 2.16.840.1.626275.3.579 .2.593 1954 Unknown [id number] 2.16.840.1.013181.3.579 .2.593 1954 Unknown [id number] 2.16.840.1.123433.3.579 .2.593 1954 Unknown [id number] 2.16.840.1.810165.3.579 .2.1244 Unknown [id number] Unknown Unknown [id number] 2.16.840.1.617591.3.579 .2.531 Unknown [id number] 2.16.840.1.935205.3.579 .2.531 Unknown [id number] 2.16.840.1.688116.3.579 .2.531 Social History Date Type Detail Facility Start: 01-20-2022 End: 12-04-2023 Tobacco smoking status NHIS Ex-smoker (finding) [facility] Start: 12-04-2023 End: 09-30-2021 History of tobacco use [facility] Work Phone: Start: 1955 Sex Assigned At Male [facility] Start: 12-04-2023 No illicit drug use No illicit drug use [facility] DO Work Phone: Comment on above: DRINKS 6 BEERS A DAY ; 2 CUPS OF COFFEE TANNER LY; QUIT IN 08/2021; Start: 04-20-2021 Tobacco smoking status Heavy t obacco smoker (finding) [facility] End: 11-04-2020 Tobacco smoking status Smoker (finding) [facility] Tobacco smoking status Never [facility] End: 11-04-2020 History of tobacco use Cigarette Smoker [facility] Work Phone: Start: 12-04-2023 Tobacco use and exposure Smokeless tobacco non-user [facility] Work Phone: Start: 12-04-2023 Alcohol intake Current drinke r of alcohol (finding) [facility] Work Phone: Start: 1955 Sex Assigned At Not on file [facility] Work Phone: Start: 11-24-2023 End: 12-04-2023 Exposure to SARS-CoV-2 (event) Not sure [facility] Medical Equipment Procedure Code Equipment Code Equipment Origin al Text Equipment Identifier Dates CATARACT EXTRACT ION W/ INTRAOCULAR LENS Sarath Hines DO 04/17/22 Non Biological Eye L [id number] [facility] Start: 04-17-2022 Goals Date Patient Goal Desired Activity /State Functional Status Date Assessment Result Facility 04-17-2022 Functional Status N/A [facility] 01-23-2022 Functional status Patient at Baseline [facility] Work Phone: Mental Status Date Assessment Result Facility 01-23-2022 Cognitive function Cognitive Sta tus Patient at Baseline [facility] Work Phone: Clinical Notes 01-20-2022 to 12-04-2023 [...] hours if needed., Disp: , Rfl: vitamins A,C,J-tuyb-yptbdd ([employer]er[employer]ision AREDS) 2,148 mcg-113 mg-45 mg-17.4mg tablet, [...] type (CMS/HCC) 6. Coronary artery disease involving minto coronary artery of minto heart without angina pectoris 7. Obesity, Class I, BMI 30-34.9 documented in this encounter [facility] Work Phone: 12-04-2023 Instructions Leticia Mi LPN [...] January as scheduled documented in this encounter [facility] Work Phone: 01-01-2023 Evaluation note Encounter Date Diagnosis Assessment Notes Dec, Medication monitoring encounter (ICD-10 - Z51.81) Referring Provider: Marcus Recnios Diagnosis: Atrial Flutter INR Goal: 2-3 INR: 2.9 Warfarin Tablet Size: 4mg Andrey: 4mg Saturday: 4mg Saturday: 4mg Saturday: 4mg : 2mg Saturday: 4mg Saturday: 4mg Total Weekly Dose: 26mg Determining dose. Conctinue plan above. Follow-up in 3 weeks. Discussed signs and symptoms of bleeding, bruising and clots. Discussed when to seek emergency care. Seen by Olga Phipps PharmD, Funmilayo Velazquez PharmD Candidate [employer] Other 02-06-2023 Evaluation note* Encounter Date Diagnosis [...] Ana Mujica RPh, Funmilayo Velazquez PharmD Candidate [employer] Other 01-23-2023 Evaluation note* Encounter Date Diagnosis Assessment Notes Treatment Notes Treatment Clinical Notes Nov, Medication monitoring encounter (ICD-10 - Z51.81) Referring Provider: Marcus Recinos Diagnosis: Atrial Flutter INR Goal: 2-3 INR: 2.6 Warfarin Tablet Size: 4mg Andrey: 4mg Saturday: 4mg Saturday: 4mg Saturday: 4mg : 2mg Saturday: 4mg Saturday: 4mg Total Weekly Dose: 26mg Determining dose. Conctinue plan above. Follow-up in 2 weeks. Seen by Ana Mujica [facility] [employer] Other 01-12-2023 Evaluation note* Encounter Date Diagnosis [...] week. Seen by Carlos A Salazar PharmD [facility] [employer] Other 06-01-2022 Hospital Discharge instructions Follow Up Care 04/04/2022 10:45:36 With:JOVANNA EDMONDS Address: [address] [place] [phone] ( [phone] Business (1) When:1 to 2 days [facility]05-24-2022 Procedure [facility]03-22-2022 Discharge summary Author Jin Berkowitz [facility] January 23, 2022 12:48pm Note Date/Time January 23, 2022 12: 48pm [facility] [address] [place] [id number] Discharge Summary Signed Patient: Remedios Magaña MR#: [id number] : 1955 Acct:[id number] Age/Sex: 66 / M Adm Date: 2 Loc: Room: [address] [place] [address]: Jin Berkowitz MD Copies to: [...] reformed smoker was recommended to go to [facility] after he was found to have [...] atrial flutter and was recommended togo to [facility].? EKG done there showed changes suspicious for ACS, ED physician spoke to cardiology here and was recommended to transfer here for further evaluation and management.? The patient was transferred to [facility] for further evaluation. Cardiology was consulted. He [...] Home Additional Instructions: DISCHARGE INSTRUCTIONS FOR CARDIAC DOCUMENTATION COORDINATOR PHONE NUMBER OF YOUR PHYSICIAN: [phone] PROCEDURE: Heart Cath The following instructions have [...] cold, numb, blue or white, call the chief learning officer immediately. 4. ACTIVITY: You are advised to [...] bottle, follow the instructions on the bottle. [facility] is not responsible for incorrect prescription information [...] Patient Ordered By: Ama Morrison Follow Up: [facility] [Outside] Marcus Recinos MD [Active Staff] - 02/13/22 12:40 pm Tirso Frausto MD [Primary Care Provider] - (You have been scheduled for a follow up appointment for the following date and time, please call to rescheduleif needed.) Documented By: Jin Berkowitz MD 01/23/22 1244 Signed By: <Electronically signed by Jin Berkowitz MD> 01/23/22 1248 [facility] Work Phone: 1(654) 576-933003-22-2022 Progress note Author Brandt Petit [facility] January 23, 2022 8:50am Note Date/Time January 23, 2022 8:5 0am [facility] [address] [place] [address] Cardiology Progress Note Signed Patient: Remedios Magaña MR#: [id number] : 1955 Acct:[id number] Age/Sex: 66 / M Adm Date: 2 Loc: Room: [address] [place] [address] Type : ADM INOo Attending Dr: Jin [...] for elective cardioversion in 4 weeks for confucianism of normal sinus mechanism (3) Diabetes mellitus: [...] signed by Brandt Petit MD> 01/23/22 0850 [facility] Work Phone: 1(533) 466-688403-22-2022 Hospital Discharge instructions Additional Instructions DISCHARGE INSTRUCTIONS FOR CARDIAC DOCUMENTATION COORDINATOR PHONE NUMBER OF YOUR PHYSICIAN: [phone] PROCEDURE: Heart Cath The following instructions have [...] cold, numb, blue or white, call the chief learning officer immediately. 4. ACTIVITY: You are advised to [...] bottle, follow the instructions on the bottle. [facility] is not responsible for incorrect prescription information provided by the patient during their visit. Do not stop your medications without consulting your health care provider. Please take the list with you to your next doctor's appointment.[facility] Work Phone: 1(956) 618-558503-21-2022 Progress note Author Jin Berkowitz [facility] January 22, 2022 1:17pm Note Date/Time January 22, 2022 1:1 2pm [facility] [address] [place] [address] Hospitalist Progress Note Signed Patient: Remedios Magaña MR#: [id number] : 1955 Acct:[id number] Age/Sex: 66 / M Adm Date: 2 Loc: Room: [address] [place] [address] Type : ADM INOo Attending Dr: Jin [...] L 18 90/64 L 98 01/22/22 08:04 03/21/22 11:48 01/22/22 11:48 01/22/22 11:48 01/22/22 11:48 [...] Dose Route Start Last Admin Trade Name Freq PRN Reason Stop Dose Admin Acetaminophen 650 mg 01/20/22 02:35 01/20/22 16:14 Acetaminophen 325 Mg Tablet PO 01/20/23 02:34 650 mg Q6HR PRN Administration Pain Scale 1 - 3 or fever Aspirin 81 mg 01/21/22 09:00 01/22/22 08:47 Aspirin 81 Mg Tablet. PO 01/21/23 08:59 81 mg DAILY NARCISO [...] <Electronically signed by Jin Berkowitz MD> 01/22/22 3915 [facility] Work Phone: 1(864) 614-798603-20-2022 Progress note Author Ama Morrison [facility] January 21, 2022 5:02pm Note Date/Time January 21, 2022 3:1 9pm [facility] [address] [place] [address] Hospitalist Progress Note Signed with Addenda Patient: Remedios Magaña MR#: [id number] : 1955 Acct:[id number] Age/Sex: 66 / M Adm Date: 2 Loc: Room: [address] [place] [address] Type : ADM INOo Attending Dr: Ama [...] Dose Route Start Last Admin Trade Name Garrettq PRN Reason Stop Dose Admin Acetaminophen 650 mg 01/20/22 02:35 01/20/22 16:14 Acetaminophen 325 Mg Tablet PO 01/20/23 02:34 650 mg Q6HR PRN Administration Pain Scale 1 - 3 or fever Aspirin 81 mg 01/21/22 09:00 01/21/22 08:00 Aspirin 81 Mg Tablet. PO 01/21/23 08:59 81 mg DAILY NARCISO [...] <Electronically signed by Ama Morrison MD> 01/21/22 1524 [facility] Work Phone: 1(171) 962-327003-20-2022 Progress note Author Brandt Petit [facility] January 21, 2022 10:42am Note Date/Time January 21, 2022 10: 41am [facility] [address] [place] [address] Cardiology Progress Note Signed Patient: Remedios Magaña MR#: [id number] : 1955 Acct:[id number] Age/Sex: 66 / M Adm Date: 2 Loc: Room: [address] [place] [address] Type : ADM INOo Attending Dr: Ama [...] MPV Neut % (Auto) Lymph % (Auto) [place] % (Auto) Eos % (Auto) Baso % (Auto) Neut # (Auto) Lymph # (Auto) [place] # (Auto) Eos # (Auto) Baso # (Auto) Nucleated RBC % (auto) APTT POC Glucose 133 POC Glucose Comment Glu2: cleaned meter Troponin I High Sens 7 Add-On Test Request Cancelled 01/20/22 01/20/22 01/20/22 16:41 17:37 20:51 Corrected WBC Uncorrected WBC Count RBC Hgb Hct MCV MCH MCHC RDW Plt Count MPV Neut % (Auto) Lymph % (Auto) [place] % (Auto) Eos % (Auto) Baso % (Auto) Neut # (Auto) Lymph # (Auto) [place] # (Auto) Eos # (Auto) Baso # [...] % (Auto) 56.3 Lymph % (Auto) 26.4 [place] % (Auto) 13.0 Eos % (Auto) 3.1 Baso % (Auto) 1.2 Neut # (Auto) 2.8 Lymph # (Auto) 1.3 [place] # (Auto) 0.6 Eos # (Auto) 0.2 Baso # (Auto) 0.1 Nucleated RBC % (auto) 0.2 APTT 81.3 H POC Glucose 113 POC Glucose Comment Troponin I High Sens Add-On Test Request 01/21/22 07:15 Corrected WBC Uncorrected WBC Count RBC Hgb Hct MCV MCH MCHC RDW Plt Count MPV Neut % (Auto) Lymph % (Auto) [place] % (Auto) Eos % (Auto) Baso % (Auto) Neut # (Auto) Lymph # (Auto) [place] # (Auto) Eos # (Auto) Baso # [...] signed by Brandt Petit MD> 01/21/22 1042 [facility] Work Phone: 1(953) 289-877603-19-2022 Consult note Author Brandt Petit [facility] January 20, 2022 5:08pm Note Date/Time January 20, 2022 5:0 8pm [facility] [address] [place] [address] Cardiology Consult Note Signed Patient: Remedios Magaña MR#: [id number] : 1955 Acct:[id number] Age/Sex: 66 / M Adm Date: 2 Loc: Room: [address] [place] [address] Type : ADM INOo Attending Dr: Ama [...] breath with exertion. 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 In the [facility] ER, an EKG was checked which again [...] mg-vit E 90 mg-zinc 40 mg-copper 1 tn-ygkiea-avvfrt capsule (PreserVision AREDS-2) 1 tab PO BID [...] x10E3/uL Lymph # (Auto) 1.3 (1.00-4.8) x10E3/uL [place] # (Auto) 0.6 (0.0-0.8) x10E3/uL Eos # [...] patient. Documented By: Brandt Petit MD 01/20/22 5251 Signed By: <Electronically signed by Brandt Petit MD> 01/20/22 0978 [facility] Work Phone: 1(548) 111-414103-19-2022 History and physical note Author Pola Anders [facility] January 20, 2022 6:26am Note Date/Time January 20, 2022 2:4 5am [facility] [address] [place] [address] Hospitalist H&P Signed Patient: Remedios Magaña MR#: [id number] : 1955 Acct:[id number] Age/Sex: 66 / M Adm Date: 2 Loc: Room: [address] [place] [address] Type : ADM IN Attending Dr: Pola Anders MD Copies to: MD Tirso Chew MD~ HPI DATE OF EXAMINATION: 01/20/22 CHIEF COMPLAINT: chest pain HISTORY OF PRESENT ILLNESS: Patient is a 66-year-old gentleman past medical history of diabetes diet- controlled, hyperlipidemia, BPH, reformed smoker was recommended to go to [facility] ED after he was found to have [...] atrial flutter and was recommended togo to [facility] ED. EKG done there showed changes suspicious [...] negative unless noted below or in HPI [facility] Medical History (Updated 01/20/22 @ 02:46 [...] mg-vit E 90 mg-zinc 40 mg-copper 1 xy-ktugqh-flwmwy capsule (PreserVision AREDS-2) 1 tab PO BID [...] and is hemodynamically stable Labs reviewed from [facility] which are essentially normal including TSH and Troponin Obtain lipid panel, A1c, echo Consult cardiology Ordered routine labs Telemetry Fall precautions CIWA protocol Resume heparin drip that has been started at [facility] ED DVT prophylaxis CODE STATUS full code. Documented By: Pola Anders MD 01/20/22 0238 Signed By: <Electronically signed by Pola Anders MD> 01/20/22 0626 [facility] Work Phone: Discharge summary Author Marcus Recinos [facility] March 27, 2022 9:20am Note Date/Time March 27, 2022 9:20a m [facility] [address] [place] [address] Discharge Summary Signed Patient: Remedios Magaña MR#: [id number] : 1955 Acct:[id number] Age/Sex: 66 / M Adm Date: 2 Loc: Room: Attending Dr: Marcus Recinos MD Copies to: MD Marcus Sommer MD, [facility]~ Providers Date of Discharge: 03/27/22 Discharging Provider: [...] RF: 0 Documented By: Marcus Recinos MD, [facility] 919 Signed By: <Electronically signed by [facility] Recinos> 03/27/22 0920 [facility] Work Phone: Evaluation + Plan note No data available for this section [facility] Diagnosis Onset Date Resolution Status Atrial flutter acute Cardiomyopathy acute Chronic alcohol use acute Diabetes mellitus acute Hyperlipidemia acute [facility] Work Phone: Evaluation noteNo assessment information available [facility] Work Phone: Evaluation noteNo InformationN[employer] Other Evaluation note* Diagnosis Atrial flutter, unspecified type (CMS/HCC)- Primary Benign essential hypertension Essential hypertension, benign High risk medication use Hyperlipidemia, unspecified hyperlipidemia type Pulmonary emphysema, unspecified emphysema type (CMS/HCC) Coronary artery disease involving minto coronary artery of minto heart without angina pectoris Obesity, Class I, BMI 30-34.9 documented in this encounter [facility] Work Phone: [facility] Work Phone: [facility] Work Phone: [facility] Work Phone: Progress note No data available for this section [facility] Chief Complaint and Reason for Visit Chief [...] Recinos MD due to AFIB. Dr. Darwin Perdomo DO in suite. Patient is here due to medication change and to see if he is still in AFIB. Medication list reviewed and updated verbally. Pt has no complaints. EKG reviewed by Balwinder Scales RN. To Dr. Marcus Recinos MD for review.Amiodarone Order sent to [facility] for testing due in MARCH* S/P CARDIOVERSION. [...] in the past Amiodarone Order sent to [facility] for testing due in JulyAmiodarone order sent to [facility] for October 2022* REMEDIOS MAGAÑA is [...] more aggressive diet. Amiodarone order sent to [facility] for January 2023* Patient in the [...] test done please contact our office at [phone] and press option #4 so that we may assist you in the problems. * Thank you for your compliance with this testing. * The Staff * [facility] * Please have done July 2023 Family [...] Procedures ECG 12 Lead Marcus Recinos MD [address] [place] [address] [address], [address] [address] Referral ID Status Reason Start Date Expiration Date V isits Requested Visits Authorized [id number] Authorized 12/04/2023 12/03/2024 1 1 Specialty Diagnoses / Procedures Referred By Contac t Referred To Contact Cardiology Diagnoses Benign essential hypertension Atrial flutter, unspecified type (CMS/HCC) Procedures Follow Up In Cardiology Marcus Recinos MD [address] [place] [address] 2, [address] [address] Marcus Recinos MD [address] [place] [address] [address], [address] [address] Referral ID Status Reason Start Date Expiration Date V isits Requested Visits Authorized [id number] Authorized 12/04/2023 12/03/2024 1 1 Additional Source Comments Care Teams (unrecognized sec tion and content) Team Status: Inactive Member Role Status Dates Tirso Frausto MD Primary Care Provider Active Pola Anders MD Admit Provider Active Jin Berkowitz MD Attending Provider Active Team Status: Active Member Role Status Dates Tirso Frausto MD Primary Care Provider Active Team Status: Inactive Member Role Status Dates Tirso Frausto MD Primary Care Provider Active Ama Morrison MD Attending Provider Active Team Status: Inactive Member Role Status Dates Tirso Frausto MD Primary Care Provider Active Marcus Recinos MD Attending Provider Active Team Status: Inactive Member Role Status Dates Tirso Frausto MD Primary Care Provider Active Marcus Recinos MD Attending Provider, Referring Prov ider Active Rn Ante Partum Relationship Specialty Start Date End Date Tirso Frausto MD [address] [place] [address] PCP - General 11/04/99 (unrecognized sect ion and content) No Status Records FoundNo Status Records FoundNo Status Records FoundNo Status Records FoundNo Status Records FoundNo Status Records Found INFORMATION SOURCE (unrecogn ized section and content) DATE CREATED AUTHOR 04/25/2022 [employer] DATE CREATED AUTHOR AUTHOR'S ORGANIZ ATION 02/10/2023 [facility] [place] DATE CREATED AUTHOR AUTHOR'S ORGANIZ ATION 03/15/2023 [facility] DATE CREATED AUTHOR AUTHOR'S ORGANIZ ATION 04/12/2023 [facility] DATE CREATED AUTHOR AUTHOR'S ORGANIZ ATION 02/07/2024 [facility] DATE CREATED AUTHOR AUTHOR'S ORGANIZ ATION 02/20/2024 [facility] Goals (unrecognized section and content) Goals may be documented in a n alternate section REASON FOR VISIT (unrecogniz ed section and content) Reason Comments Follow-up 6 months Specialty Diagnoses / Procedures Referred By Contac t Referred To Contact Diagnoses Atrial flutter, unspecified type (CMS/HCC) Procedures ECG 12 Lead Marcus Recinos MD [address] [facility] [address], [address] [place] [address] Referral ID Status Reason Start Date Expiration Date V isits Requested Visits Authorized [id number] Authorized 12/04/2023 12/03/2024 1 1 FOR RECORDS [...] BE BASED ON THE PRIMARY CLINICAL RECORDS. [employer] provides no warranty or guarantee of the accuracy or completeness of information in this document.
[2024-03-11 11:29] LABS: Basophils Percent Auto 0.1 % (0.2-2.0); Eosinophils Absolute Auto 0.1 10^3/uL (0.0-0.7); Eosinophils Percent Auto 1.9 % (0.9-7.0); Hemoglobin 13.3 g/dL (14.0-18.0); Immature Granulocytes Abs Auto 0.05 10^3/uL (0.00-0.03); Immature Granulocytes Pct Auto 0.7 % (0.0-0.5); Lymphocytes Absolute Auto 1.2 10^3/uL (1.2-3.8); Lymphocytes Percent Auto 16.8 % (20.5-60.0); Mean Corpuscular HGB Conc 31.7 g/dL (29.9-35.2); Mean Corpuscular Hemoglobin 25.5 pg (25.9-34.0); Mean Corpuscular Volume 80.6 fL (80.0-94.0); Monocytes Absolute Auto 0.9 10^3/uL (0.3-0.8); Monocytes Percent Auto 11.7 % (1.7-12.0); Neutrophils Percent Auto 68.8 % (43.0-75.0); Platelet Count 304 10^3/uL (150-450); Red Blood Count 5.21 10^6/uL (4.70-6.10); Red Cell Distribution Width 14.8 % (11.0-15.0); White Blood Count 7.3 10^3/uL (4.0-11.0)
[2024-03-11 11:41] LABS: Estimated Average Glucose 154 mg/dL
[2024-03-11 11:47] LABS: Alanine Aminotransferase 191 U/L (16-63); Albumin Globulin Ratio 0.9; Albumin Level 3.5 g/dL (3.4-5.0); Alkaline Phosphatase 49 U/L (46-116); Anion Gap 16.5; Aspartate Amino Transferase 115 U/L (15-37); BUN Creatinine Ratio 23.7; Bilirubin Total 0.9 mg/dL (0.2-1.0); Calcium 8.9 mg/dL (8.5-10.1); Carbon Dioxide 24.1 mmol/L (21.0-32.0); Chloride 100 mmol/L (98-107); Chol HDL Ratio 2.6; Cholesterol 171 mg/dL (<=200); Estimated GFR (African America >60 (>=60); Estimated GFR (Non-African Ame >60 (>=60); Globulin 3.9 g/dL; Glucose 131 mg/dL (74-106); HDL Cholesterol 66 mg/dL (40-60); Potassium 4.6 mmol/L (3.5-5.1); Sodium 136 mmol/L (136-145); Thyroid Stimulating Hormone 4.508 uIU/mL (0.358-3.740); Total Protein 7.4 g/dL (6.4-8.2); Triglycerides 114 mg/dL (<=150); VLDL CHOLESTEROL 22.8 mg/dL
[2024-03-11 12:00] LABS: Prostate Specific Antigen Scrn 1.04 ng/mL (<=4.00)
== END 2024-03-11 10:40 | disposition home or self-care (01) ==
LOC: LAB 10:39
PROVIDERS: PCP Family Medicine; Visit Provider Family Medicine
DX: E11.65 Type 2 diabetes mellitus with hyperglycemia (principal); E78.5 Hyperlipidemia, unspecified; I48.92 Unspecified atrial flutter; J44.9 Chronic obstructive pulmonary disease, unspecified
CPT/HCPCS: 36415; 80053; 80061; 83036; 84436; 84443; 84481; 85025; G0103

== ENCOUNTER 2024-04-08 09:22 | Outpatient (OUT) | payer MEDICARE, SELFPAY ==
[2024-04-08 10:53] LABS: Alanine Aminotransferase 123 U/L (16-63); Albumin Globulin Ratio 0.9; Albumin Level 3.6 g/dL (3.4-5.0); Alkaline Phosphatase 51 U/L (46-116); Anion Gap 10.7; Aspartate Amino Transferase 75 U/L (15-37); BUN Creatinine Ratio 12.1; Bilirubin Total 0.7 mg/dL (0.2-1.0); Calcium 8.9 mg/dL (8.5-10.1); Carbon Dioxide 29.8 mmol/L (21.0-32.0); Chloride 102 mmol/L (98-107); Estimated GFR (African America >60 (>=60); Estimated GFR (Non-African Ame >60 (>=60); Free T3 2.06 pg/mL (2.18-3.98); Globulin 3.9 g/dL; Glucose 137 mg/dL (74-106); Potassium 4.5 mmol/L (3.5-5.1); Sodium 138 mmol/L (136-145); Thyroid Stimulating Hormone 3.271 uIU/mL (0.358-3.740); Total Protein 7.5 g/dL (6.4-8.2)
== END 2024-04-08 09:23 | disposition home or self-care (01) ==
LOC: LAB 09:22
PROVIDERS: PCP Family Medicine; Visit Provider Family Medicine
DX: R74.8 Abnormal levels of other serum enzymes (principal); E05.90 Thyrotoxicosis, unspecified without thyrotoxic crisis or storm
CPT/HCPCS: 36415; 80053; 84436; 84443; 84481

== ENCOUNTER 2024-07-28 09:27 | Outpatient (OUT) | payer MEDICARE, SELFPAY ==
--- OUTSIDE RECORDS SUMMARY | 2024-07-28 09:35 | XMS_ITS | CCD ---
Author Organization [facility] Care Team Providers Care Pack Worker Name Role Phone MD Tirso Frausto Primary Care Provider [phone] MD Pola Anders Admit Provider MD Jin Berkowitz Attending Provider [phone] MD Ama Morrison Attending Provider [phone] Tirso Frausto Unavailable Unavailable Unavailable MD Marcus Recinos Attending Provider MD Marcus Recinos Referring Provider Tirso Frausto Primary Care Physician [phone] Unavailable Unavailable MD Tirso Frausto Primary Care Provider [phone] Jina Rios Unavailable Carlos A Salazar [...] Care Unavail able Marcus Recinos Attending Unavailable REQUEST, NONE LISTED Primary Care Unavaila ble HOY ., DR CHAHAL Consulting Unavailable HOY ., DR CHAHAL Attending Unavailable HOY ., DR CHAHAL Admitting Unavailable STANFORD MORTENSEN Consulting Unavailable RECINOS, DR MARCUS Rivera Attending [...] REQUEST, NONE LISTED Primary Care Unavaila ble MORAIMA, NOELLE Consulting Unavailable HOY ., DR CHAHAL Consulting [...] Unavailable Tirso Frausto MD Primary Care Provider [phone] MARCUS RECINOS Attending Unavailable TIRSO FRAUSTO Primary Care Unavailable MARCUS RECINOS Attending Unavailable MARCUS RECINOS Referring Unavailable TIRSO FRAUSTO Primary Care Unavailable Allergies Allergy Classification Reported Allergen(s) Allergy Type Date of Onset Reaction(s) Facility (12 sources) Ciprofloxacin; Translations: [Ciprofloxacin] Drug Allergy 03-27-2022 [facility] (14 sources) Ciprofloxacin; Translations: [Cipro XR] Drug Allergy [facility] 250 DO Work Phone: (1 source) Ciprofloxacin Drug Allergy 04-19-2015 [facility] (2 sources) Ciprofloxacin; Translations: [CIPROFLOXACIN (MIXTURE)] Drug Allergy 10-14-2023 [facility] Work Phone: Medications Current Medications Medication Drug [...] ascorbic acid 226 mg / beta carotene 50796 unt / cuprous oxide 0.8 mg / dl-alpha tocopheryl acetate 200 unt / zinc oxide 34.8 mg oral capsule (2 sources) Vitamin C Start: 04-16-2022 take 1 capsule by mouth once daily PreserVision AREDS oral capsule 1 cap, Oral, Daily, Prophylaxis Start Date: 04/16/22 Status: Ordered take 1 tablet by kyle th every twelve hours vitamins A,C,D-jzlw-hmvbrh (PreserVision AREDS) 2,148 mcg-113 mg-45 mg-17.4mg tablet [...] PO Daily January 20, 2022 12:00am Vit C,Y-Vg-Ukgwt-Lutein- Zeaxan (Preservision Areds-2) 250-90-40-1 mg Capsule (6 sources) Start: 01-20-2022 Vit C,T-Zh-Fpmcw-Lut ein-Zeaxan (Preservision Areds-2) 250-90-40-1 mg Capsule Active 1 TAB PO Twice daily January 20, 2022 2:13am Start: 01-20-2022 Vit C,E-Zn-Tree Scout nf-Ostwju-Nsnpsr (Preservision Areds-2) 250-90-40-1 mg Capsule Active 1 TAB PO Twice daily January 20, 2022 12:00am Completed/Discontinued Medications Medication Drug Class(es) Dates Sig (Normalized) Sig (Original) [id number] 200 actuat albuterol 0.09 mg/actuat metered dose [...] hr Active 50 MG PO Daily 30 30 March 27, 2022 12:00am Start: 01-20-2022 [...] 1 tablet daily - being referred to [facility] to manage Quantity: 30 Refills: [...] Coronary arteriosclerosis; 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] 12-04-2023 Chronic [...] use of other medications] Episodic Other aftercare (2 sources) Taking high risk medication; Translations: [Other exterminator helper (current) drug therapy] Onset: 10-14-2023 12-04-2023 Episodic [...] drug level monitoring] Onset: 01-01-2023 Episodic Other aftercare (7 sources) Other exterminator helper (current) drug therapy; Translations: [OTH HALF-WAY CURRENT DRUG THERAPY] Onset: 10-22-2022 Episodic Other liver diseases (4 sources) Abnormal [...] Range Facility Physician Referralon 024 Physician Referral [phone] [id number] Normal [facility] ECG 12 Leadon 12-04-2023 ECG revealed normal sinus rhythm with first-degree AV block and left axis deviation [facility] Work Phone: GLYCOHEMOGLOBIN A1Con 2022 ADA RECOMMENDATION SEE BELOW Normal [facility] Comment on above: Result Comment: ADA RECOMMENDED LIMIT 4.0 - 6.0 ADA THERAPEUTIC TARGET < 7.0 ACTION SUGGESTED > 7.0 Performed By: #### A 1C #### [facility] [address] [place] [address] Dr. Igor Hayes Glucose [Mass/Vol] 137 mg/dL Normal [facility] Comment on above: Performed By: #### A 1C #### [facility] [address] [address] [address] Igor Hayes HbA1c (Bld) [Mass fraction] 6.4 % Critically high 4.5-6.2 [facility] Comment on above: Performed By: #### A 1C #### [facility] [address] [address] [address] Igor Hayes LIPID PROFILEon 03-08-2023 CHOL-HDL RATIO NORM SEE BELOW Normal [facility] Comment on above: Result Comment: 3.3 - 4.4 LOW RISK 4.4 - 7.1 AVERAGE RISK 7.1 - 11.0 MODERATE RISK >11.0 HIGH RISK Performed By: #### A 1C #### [facility] [address] [place] [address] Dr. Igor Hayes Cholesterol [Mass/Vol] 181 mg/dL Normal <=200 [facility] Comment on above: Performed By: #### A 1C #### [facility] [address] [address] [address] Igor Hayes Cholesterol in HDL [Mass/Vol] 64 mg/dL Critically high 40-60 [facility] Comment on above: Performed By: #### A 1C #### [facility] [address] [address] [address] Igor Hayes Cholesterol in LDL [Mass/Vol] 99.2 mg/dL Normal [facility] Comment on above: Performed By: #### A 1C #### [facility] [address] [address] [address] Igor Hayes Cholesterol.total/Ch olesterol in HDL [Mass ratio] 2.8 {ratio} Normal [facility] Comment on above: Performed By: #### A 1C #### [facility] [address] [address] [address] Igor Hayes HDL NORMAL > or = 60 mg/dl - LO W CARDIOVASCULAR RISK <40 mg/dl - HIGH CARDIOVASCULAR RISK Normal [facility] Comment on above: Performed By: #### A 1C #### [facility] [address] [address] [address] Igor Hayes LDL CALC NORMAL SEE BELOW Normal [facility] Comment on above: Result Comment: <100 mg/dl OPTIMAL 100 - 129 mg/dl NEAR OR ABOVE OPTIMAL 130 - 159 mg/dl BORDERLINE HIGH 160 - 189 mg/dl HIGH >190 mg/dl VERY HIGH Performed By: #### A 1C #### [facility] [address] [address] [address] Igor Hayes Triglyceride [Mass/Vol] 89 mg/dL Normal <=150 [facility] Comment on above: Performed By: #### A 1C #### [facility] [address] [address] [address] Igor Hayes VLDL CALC 17.8 mg/dL Normal [facility] Comment on above: Performed By: #### A 1C #### [facility] [address] [address] [address] Igor Hayes INFLUENZA A AND B AGon 02-01 INFLUANEGH SEE BELOW Normal [facility] Comment on above: Result Comment: Nega tive for Flu A protein angiten. Infection due to Flu A cannot be ruled out. Flu A angiten in the sample may be below the detection limit of the test. Performed By: #### O BSCRN #### [facility] [address] [place] [address] Dr. Igor Hayes INFLUBNEGH SEE BELOW Normal [facility] Comment on above: Result Comment: Nega tive for Flu B protein antigen. Infection due to Flu B cannot be ruled out. Flu B antigen in the sample may be below the detection limit of the test. Performed By: #### O BSCRN #### [facility] [address] [place] [address] Dr. Igor Hayes INFLUENZA A AG Negative Normal NEGATIVE SEE COMMENT [facility] Comment on above: Performed By: #### O BSCRN #### [facility] [address] [place] [address] Dr. Igor Hayes INFLUENZA B AG Negative Normal NEGATIVE SEE COMMENT [facility] Comment on above: Performed By: #### O BSCRN #### [facility] [address] [place] [address] Dr. Igor Hayes SYMPTOMATIC COVID-19 ANTIGEN on 02-01-2023 EUA Statement SEE BELOW Normal [facility] Comment on above: Result Comment: This test [...] sooner. Performed By: #### A 1C #### [facility] [address] [place] [address] Dr. Igor Hayes SARS-CoV-2 (COVID-19) RNA VERONIQUE+probe Ql (Unsp spec) Positive Abnormal NEGATIVE [facility] Comment on above: Performed By: #### A 1C #### [facility] [address] [place] [address] Dr. Igor Hayes HEMOGLOBINon 01-10-2023 Hemoglobin (Bld) [Mass/Vol] 14.4 g/dL Normal 14.0-18.0 [facility] Comment on above: Performed By: #### H GB #### [facility] [address] [place] [address] Dr. Igor Hayes PROF CHEM 8 (BAS METB)on Anion gap [Moles/Vol] 8.4 mmol/L Normal [facility] Comment on above: Performed By: #### O BSCRN #### [facility] [address] [place] [address] Dr. Igor Hayes Calcium [Mass/Vol] 8.9 mg/dL Normal 8.5-10.1 [facility] Comment on above: Performed By: #### O BSCRN #### [facility] [address] [place] [address] Dr. Igor Hayes Chloride [Moles/Vol] 103 mmol/L Normal 98-107 [facility] Comment on above: Performed By: #### O BSCRN #### [facility] [address] [place] [address] Dr. Igor Hayes CO2 [Moles/Vol] 31.2 mmol/L Normal 21.0-32.0 [facility] Comment on above: Performed By: #### O BSCRN #### [facility] [address] [place] [address] Dr. Igor Hayes Creatinine [Mass/Vol] 1.02 mg/dL Normal 0.70-1.30 [facility] Comment on above: Performed By: #### O BSCRN #### [facility] [address] [place] [address] Dr. Igor Hayes EGFR-AF [place] >60 Normal >=60 [facility] Comment on above: Performed By: #### O BSCRN #### [facility] [address] [address] [address] Igor Hayes EGFR-NON AF [place] >60 Normal >=60 [facility] Comment on above: Performed By: #### O BSCRN #### [facility] [address] [address] [address] Igor Hayes Glucose [Mass/Vol] 133 mg/dL Critically high 74-106 [facility] Comment on above: Performed By: #### O BSCRN #### [facility] [address] [address] [address] Igor Hayes Potassium [Moles/Vol] 4.6 mmol/L Normal 3.5-5.1 [facility] Comment on above: Performed By: #### O BSCRN #### [facility] [address] [address] [address] Igor Hayes Sodium [Moles/Vol] 138 mmol/L Normal 136-145 [facility] Comment on above: Performed By: #### O BSCRN #### [facility] [address] [address] [address] Igor Hayes Urea nitrogen [Mass/Vol] 17.0 mg/dL Normal 7.0-18.0 [facility] Comment on above: Performed By: #### O BSCRN #### [facility] [address] [address] [address] Igor Hayes Urea nitrogen/Creatinine [Mass ratio] 16.7 mg/mg Normal [facility] Comment on above: Performed By: #### O BSCRN #### [facility] [address] [address] [address] Igor Hayes SGOTon 01-10-2023 AST [Catalytic activity/Vol] 36 U/L Normal 15-37 [facility] Comment on above: Performed By: #### O BSCRN #### [facility] [address] [address] [address] Igor Hayes TSHon 01-10-2023 TSH 4.230 uIU/mL Critically high 0.358-3.74 0 [facility] Comment on above: Performed By: #### O BSCRN #### [facility] [address] [address] [address] Igor Hayes XR CHEST 2 Von [...] by: DEE BARTON Date: 2023-01-10 13:02 Normal [facility] Prothrombin Time INRon 01-01 INR Coag (PPP) [Relative time] 2.9 {INR} [employer] Other Prothrombin Time INR [facility] [employer] Other Prothrombin Time INRon 12-10 INR Coag (PPP) [Relative time] 2.7 {INR} [employer] Other Prothrombin Time INR [facility] [employer] Other Prothrombin Time INRon 11-26 INR Coag (PPP) [Relative time] 2.6 {INR} [employer] Other Prothrombin Time INR [facility] [employer] Other Prothrombin Time INRon 11-15 INR Coag (PPP) [Relative time] 3.2 {INR} [employer] Other Prothrombin Time INR [employer] Other LIPID PROFILEon 11-14-2022 CHOL-HDL RATIO NORM SEE BELOW Normal [facility] Comment on above: Result Comment: 3.3 - 4.4 LOW RISK 4.4 - 7.1 AVERAGE RISK 7.1 - 11.0 MODERATE RISK >11.0 HIGH RISK Performed By: #### O BSCRN #### [facility] [address] [address] [address] Igor Hayes Cholesterol [Mass/Vol] 186 mg/dL Normal <=200 [facility] Comment on above: Performed By: #### O BSCRN #### [facility] [address] [address] [address] Igor Hayes Cholesterol in HDL [Mass/Vol] 64 mg/dL Critically high 40-60 [facility] Comment on above: Performed By: #### O BSCRN #### [facility] [address] [address] [address] Igor Hayes Cholesterol in LDL [Mass/Vol] 99.0 mg/dL Normal [facility] Comment on above: Performed By: #### O BSCRN #### [facility] [address] [address] [address] Igor Hayes Cholesterol.total/Ch olesterol in HDL [Mass ratio] 2.9 {ratio} Normal [facility] Comment on above: Performed By: #### O BSCRN #### [facility] [address] [address] [address] Igor Hayes HDL NORMAL > or = 60 mg/dl - LO W CARDIOVASCULAR RISK <40 mg/dl - HIGH CARDIOVASCULAR RISK Normal [facility] Comment on above: Performed By: #### O BSCRN #### [facility] [address] [address] [address] Igor Hayes LDL CALC NORMAL SEE BELOW Normal [facility] Comment on above: Result Comment: <100 mg/dl OPTIMAL 100 - 129 mg/dl NEAR OR ABOVE OPTIMAL 130 - 159 mg/dl BORDERLINE HIGH 160 - 189 mg/dl HIGH >190 mg/dl VERY HIGH Performed By: #### O BSCRN #### [facility] [address] [address] [address] Igor Hayes Triglyceride [Mass/Vol] 115 mg/dL Normal <=150 [facility] Comment on above: Performed By: #### O BSCRN #### [facility] [address] [address] [address] Igor Hayes VLDL CALC 23.0 mg/dL Normal [facility] Comment on above: Performed By: #### O BSCRN #### [facility] [address] [place] [address] Dr. Igor aHyes Tobacco Screening.on 023 Adult depression screening assessment No [facility] 250 DO Work Phone: Fall risk assessment a) No falls within the last year [facility] 250 DO Work Phone: Tobacco use status [facility] b) No [facility] 250 DO Work Phone: AMMONIAon 11-02-2022 Ammonia (P) [Moles/Vol] 12 umol/L Normal 11-32 [facility] Comment on above: Performed By: #### A 1C #### [facility] [address] [place] [address] Dr. Igor Hayes PROF 14(COMP METB)on 022 Albumin [Mass/Vol] 3.9 g/dL Normal 3.4-5.0 [facility] Comment on above: Performed By: #### A 1C #### [facility] [address] [place] [address] Dr. Igor Hayes Albumin/Globulin [Mass ratio] 1.1 {ratio} Normal [facility] Comment on above: Performed By: #### A 1C #### [facility] [address] [place] [address] Dr. Igor Hayes ALP [Catalytic activity/Vol] 48 U/L Normal 46-116 [facility] Comment on above: Performed By: #### A 1C #### [facility] [address] [place] [address] Dr. Igor Hayes ALT [Catalytic activity/Vol] 70 U/L Critically high 16-63 [facility] Comment on above: Performed By: #### A 1C #### [facility] [address] [place] [address] Dr. Igor Hayes Anion gap [Moles/Vol] 13.5 mmol/L Normal [facility] Comment on above: Performed By: #### A 1C #### [facility] [address] [address] [address] Igor Hayes AST [Catalytic activity/Vol] 41 U/L Critically high 15-37 [facility] Comment on above: Performed By: #### A 1C #### [facility] [address] [place] [address] Dr. Igor Hayes Bilirubin [Mass/Vol] 0.6 mg/dL Normal 0.2-1.0 [facility] Comment on above: Performed By: #### A 1C #### [facility] [address] [place] [address] Dr. Igor Hayes Calcium [Mass/Vol] 9.0 mg/dL Normal 8.5-10.1 [facility] Comment on above: Performed By: #### A 1C #### [facility] [address] [place] [address] Dr. Igor Hayes Chloride [Moles/Vol] 102 mmol/L Normal 98-107 [facility] Comment on above: Performed By: #### A 1C #### [facility] [address] [place] [address] Dr. Igor aHyes CO2 [Moles/Vol] 28.9 mmol/L Normal 21.0-32.0 [facility] Comment on above: Performed By: #### A 1C #### [facility] [address] [place] [address] Dr. Igor Hayes Creatinine [Mass/Vol] 1.14 mg/dL Normal 0.70-1.30 [facility] Comment on above: Performed By: #### A 1C #### [facility] [address] [place] [address] Dr. Igor Hayes EGFR-AF [place]IZ[place] >60 Normal >=60 [facility] Comment on above: Performed By: #### A 1C #### [facility] [address] [place] [address] Dr. Igor Hayes EGFR-NON AF [place] >60 Normal >=60 [facility] Comment on above: Performed By: #### A 1C #### [facility] [address] [place] [address] Dr. Igor Hayes Globulin (S) [Mass/Vol] 3.7 g/dL Normal [facility] Comment on above: Performed By: #### A 1C #### [facility] [address] [place] [address] Dr. Igor Hayes Glucose [Mass/Vol] 166 mg/dL Critically high 74-106 [facility] Comment on above: Performed By: #### A 1C #### [facility] [address] [address] [address] Igor Hayes Potassium [Moles/Vol] 4.4 mmol/L Normal 3.5-5.1 [facility] Comment on above: Performed By: #### A 1C #### [facility] [address] [place] [address] Dr. Igor Hayes Protein [Mass/Vol] 7.6 g/dL Normal 6.4-8.2 [facility] Comment on above: Performed By: #### A 1C #### [facility] [address] [place] [address] Dr. Igor Hayes Sodium [Moles/Vol] 140 mmol/L Normal 136-145 [facility] Comment on above: Performed By: #### A 1C #### [facility] [address] [place] [address] Dr. Igor Hayes Urea nitrogen [Mass/Vol] 18.0 mg/dL Normal 7.0-18.0 [facility] Comment on above: Performed By: #### A 1C #### [facility] [address] [place] [address] Dr. Igor Hayes Urea nitrogen/Creatinine [Mass ratio] 15.8 mg/mg Normal [facility] Comment on above: Performed By: #### A 1C #### [facility] [address] [place] [address] Dr. Igor Hayes HEMOGLOBINon 10-22-2022 Hemoglobin (Bld) [Mass/Vol] 15.3 g/dL Normal 14.0-18.0 [facility] Comment on above: Performed By: #### A 1C #### [facility] [address] [place] [address] Dr. Igor Hayes PROF CHEM 8 (BAS METB)on Anion gap [Moles/Vol] 12.9 mmol/L Normal [facility] Comment on above: Performed By: #### A ST, BMP, TSH #### [facility] [address] [address] [address] Igor Hayes Calcium [Mass/Vol] 9.2 mg/dL Normal 8.5-10.1 [facility] Comment on above: Performed By: #### A ST, BMP, TSH #### [facility] [address] [address] [address] Igor aHyes Chloride [Moles/Vol] 103 mmol/L Normal 98-107 [facility] Comment on above: Performed By: #### A ST BMP, TSH #### [facility] [address] [place] [address] Dr. Igor Hayes CO2 [Moles/Vol] 29.7 mmol/L Normal 21.0-32.0 [facility] Comment on above: Performed By: #### A ST BMP, TSH #### [facility] [address] [place] [address] Dr. Igor Hayes Creatinine [Mass/Vol] 1.16 mg/dL Normal 0.70-1.30 [facility] Comment on above: Performed By: #### A ST BMP, TSH #### [facility] [address] [place] [address] Dr. Igor Hayes EGFR-AF [place]IZ[place] >60 Normal >=60 [facility] Comment on above: Performed By: #### A ST BMP, TSH #### [facility] [address] [place] [address] Dr. Igor Hayes EGFR-NON AF [place] >60 Normal >=60 [facility] Comment on above: Performed By: #### A ST, BMP, TSH #### [facility] [address] [place] [address] Dr. Igor Hayes Glucose [Mass/Vol] 125 mg/dL Critically high 74-106 [facility] Comment on above: Performed By: #### A ST, BMP, TSH #### [facility] [address] [address] [address] Igor Hayes Potassium [Moles/Vol] 4.6 mmol/L Normal 3.5-5.1 [facility] Comment on above: Performed By: #### A ST, BMP, TSH #### [facility] [address] [address] [address] Igor Hayes Sodium [Moles/Vol] 141 mmol/L Normal 136-145 [facility] Comment on above: Performed By: #### A ST, BMP, TSH #### [facility] [address] [address] [address] Igor Hayes Urea nitrogen [Mass/Vol] 17.0 mg/dL Normal 7.0-18.0 [facility] Comment on above: Performed By: #### A ST, BMP, TSH #### [facility] [address] [place] [address] Dr. Igor Hayes Urea nitrogen/Creatinine [Mass ratio] 14.7 mg/mg Normal [facility] [facility] Comment on above: Performed By: #### A ST, BMP, TSH #### [facility] [address] [place] [address] Dr. Igor Hayes SGOTon 10-22-2022 AST [Catalytic activity/Vol] 49 U/L Critically high 15-37 [facility] Comment on above: Performed By: #### A ST, BMP, TSH #### [facility] [address] [place] [address] Dr. Igor Hayes TSHon 10-22-2022 TSH 4.171 uIU/mL Critically high 0.358-3.74 0 [facility] Comment on above: Performed By: #### A ST, BMP, TSH #### [facility] [address] [place] [address] Dr. Igor Hayes US SINGLE QUAD RT [...] STANFORD MORTENSEN Date: 2022-10-22 20:43 Normal [facility] XR CHEST 2 Von 10-22-2022 [...] [place] Date: 2022-10-22 20:38 Normal [facility] INSULINon 10-10-2022 Insulin 19.8 uIU/mL Normal 2.6-24.9 [facility] Comment on above: Performed By: #### A 1C #### [facility] [address] [place] [address] Dr. Igor Hayes CBC AUTO DIFFon 10-09-2022 BASO # 0.1 103/ul Normal 0.0-0.1 [facility] Comment on above: Performed By: #### A 1C #### [facility] [address] [place] [address] Dr. Igor Hayes Basophils/100 WBC (Bld) 1.7 % Normal 0.2-2.0 [facility] Comment on above: Performed By: #### A 1C #### [facility] [address] [place] [address] Dr. Igor Hayes EO # 0.2 103/ul Normal 0.0-0.7 [facility] Comment on above: Performed By: #### A 1C #### [facility] [address] [place] [address] Dr. Igor Hayes Eosinophils/100 WBC (Bld) 3.1 % Normal 0.9-7.0 [facility] Comment on above: Performed By: #### A 1C #### [facility] [address] [place] [address] Dr. Igor Hayes Erythrocyte distribution width (RBC) [Ratio] 12.9 % Normal 11.0-15.0 [facility] Comment on above: Performed By: #### A 1C #### [facility] [address] [place] [address] Dr. Igor Hayes Hematocrit (Bld) [Volume fraction] 45.5 % Normal 42.0-54.0 [facility] Comment on above: Performed By: #### A 1C #### [facility] [address] [place] [address] Dr. Igor Hayes Hemoglobin (Bld) [Mass/Vol] 15.1 g/dL Normal 14.0-18.0 [facility] Comment on above: Performed By: #### A 1C #### [facility] [address] [place] [address] Dr. Igor Hayes IG # 0.01 10e3/ul Normal 0.00-0.03 [facility] Comment on above: Performed By: #### A 1C #### [facility] [address] [place] [address] Dr. Igor Hayes IG % 0.2 % Normal 0.0-0.5 [facility] Comment on above: Performed By: #### A 1C #### [facility] [address] [place] [address] Dr. Igor Hayes LYMPH # 1.2 103/ul Normal 1.2-3.8 [facility] Comment on above: Performed By: #### A 1C #### [facility] [address] [place] [address] Dr. Igor Hayes Lymphocytes/100 WBC (Bld) 23.9 % Normal 20.5-60.0 [facility] Comment on above: Performed By: #### A 1C #### [facility] [address] [place] [address] Dr. Igor Hayes MANUAL DIFF REQ NO Normal [facility] Comment on above: Performed By: #### A 1C #### [facility] [address] [place] [address] Dr. Igor Hayes MCH (RBC) [Entitic mass] 29.3 pg Normal 25.9-34.0 [facility] Comment on above: Performed By: #### A 1C #### [facility] [address] [place] [address] Dr. Igor Hayes MCHC (RBC) [Mass/Vol] 33.2 g/dL Normal 29.9-35.2 [facility] Comment on above: Performed By: #### A 1C #### [facility] [address] [place] [address] Dr. Igor Hayes MCV (RBC) [Entitic vol] 88.2 fL Normal 80.0-94.0 [facility] Comment on above: Performed By: #### A 1C #### [facility] [address] [place] [address] Dr. Igor Hayes MONO # 0.6 103/ul Normal 0.3-0.8 [facility] Comment on above: Performed By: #### A 1C #### [facility] [address] [place] [address] Dr. Igor Hayes Monocytes/100 WBC (Bld) 12.3 % Critically high 1.7-12.0 [facility] Comment on above: Performed By: #### A 1C #### [facility] [address] [place] [address] Dr. Igor Hayes NEUT # 3.1 103/ul Normal 1.4-6.5 [facility] Comment on above: Performed By: #### A 1C #### [facility] [address] [place] [address] Dr. Igor Hayes Neutrophils/100 WBC (Bld) 58.8 % Normal 43.0-75.0 [facility] Comment on above: Performed By: #### A 1C #### [facility] [address] [place] [address] Dr. Igor Hayes Platelet mean volume (Bld) [Entitic vol] 10.0 fL Normal 9.5-13.5 [facility] Comment on above: Performed By: #### A 1C #### [facility] [address] [place] [address] Dr. Igor Hayes PLT 234 103/ul Normal 150-450 [facility] Comment on above: Performed By: #### A 1C #### [facility] [address] [place] [address] Dr. Igor Hayes RBC 5.16 106/ul Normal 4.70-6.10 [facility] Comment on above: Performed By: #### A 1C #### [facility] [address] [place] [address] Dr. Igor Hayes WBC 5.2 103/ul Normal 4.0-11.0 [facility] Comment on above: Performed By: #### A 1C #### [facility] [address] [place] [address] Dr. Igor Hayes GLYCOHEMOGLOBIN A1Con 2021 ADA RECOMMENDATION SEE BELOW Normal [facility] Comment on above: Result Comment: ADA RECOMMENDED LIMIT 4.0 - 6.0 ADA THERAPEUTIC TARGET < 7.0 ACTION SUGGESTED > 7.0 Performed By: #### A 1C #### [facility] [address] [place] [address] Dr. Igor Hayes Glucose [Mass/Vol] 123 mg/dL Normal [facility] Comment on above: Performed By: #### A 1C #### [facility] [address] [place] [address] Dr. Igor Hayes HbA1c (Bld) [Mass fraction] 5.9 % Normal 4.5-6.2 [facility] Comment on above: Performed By: #### A 1C #### [facility] [address] [place] [address] Dr. Igor Hayes OCC BLD IMMUNO SCREENon OCCULT BLOOD Negative Normal NEGATIVE [facility] Comment on above: Performed By: #### O BSCRN #### [facility] [address] [place] [address] Dr. Igor Hayes PROF 14(COMP METB)on 022 Albumin [Mass/Vol] 3.9 g/dL Normal 3.4-5.0 [facility] Comment on above: Performed By: #### U THUY, CMP #### [facility] [address] [address] [address] Igor Hayes Albumin/Globulin [Mass ratio] 1.0 {ratio} Normal [facility] Comment on above: Performed By: #### U THUY, CMP #### [facility] [address] [address] [address] Igor Hayes ALP [Catalytic activity/Vol] 45 U/L Critically low 46-116 [facility] Comment on above: Performed By: #### U THUY, CMP #### [facility] [address] [address] [address] Igor Hayes ALT [Catalytic activity/Vol] 83 U/L Critically high 16-63 [facility] Comment on above: Performed By: #### U THUY, CMP #### [facility] [address] [address] [address] Igor Hayes Anion gap [Moles/Vol] 11.6 mmol/L Normal [facility] Comment on above: Performed By: #### U THUY, CMP #### [facility] [address] [address] [address] Igor Hayes AST [Catalytic activity/Vol] 44 U/L Critically high 15-37 [facility] Comment on above: Performed By: #### U THUY, CMP #### [facility] [address] [address] [address] Igor Hayes Bilirubin [Mass/Vol] 0.7 mg/dL Normal 0.2-1.0 [facility] Comment on above: Performed By: #### U THUY, CMP #### [facility] [address] [address] [address] Igor Hayes Calcium [Mass/Vol] 8.8 mg/dL Normal 8.5-10.1 [facility] Comment on above: Performed By: #### U THUY, CMP #### [facility] [address] [address] [address] Igor Hayes Chloride [Moles/Vol] 102 mmol/L Normal 98-107 [facility] Comment on above: Performed By: #### U THUY, CMP #### [facility] [address] [address] [address] Igor Hayes CO2 [Moles/Vol] 29.1 mmol/L Normal 21.0-32.0 [facility] Comment on above: Performed By: #### U THUY, CMP #### [facility] [address] [address] [address] Igor Hayes Creatinine [Mass/Vol] 1.02 mg/dL Normal 0.70-1.30 [facility] Comment on above: Performed By: #### U THUY, CMP #### [facility] [address] [place] [address] Dr. Igor Hayes EGFR-AF [place] >60 Normal >=60 [facility] Comment on above: Performed By: #### U THUY, CMP #### [facility] [address] [place] [address] Dr. Igor Hayes EGFR-NON AF [place] >60 Normal >=60 [facility] Comment on above: Performed By: #### U THUY, CMP #### [facility] [address] [place] [address] Dr. Igor Hayes Globulin (S) [Mass/Vol] 3.9 g/dL Normal [facility] Comment on above: Performed By: #### U THUY, CMP #### [facility] [address] [address] [address] Igor Hayes Glucose [Mass/Vol] 132 mg/dL Critically high 74-106 [facility] Comment on above: Performed By: #### U THUY, CMP #### [facility] [address] [address] [address] Igor Hayes Potassium [Moles/Vol] 4.7 mmol/L Normal 3.5-5.1 [facility] Comment on above: Performed By: #### U THUY, CMP #### [facility] [address] [place] [address] Dr. Igor Hayes Protein [Mass/Vol] 7.8 g/dL Normal 6.4-8.2 [facility] Comment on above: Performed By: #### U THUY, CMP #### [facility] [address] [address] [address] Igor Hayes Sodium [Moles/Vol] 138 mmol/L Normal 136-145 [facility] Comment on above: Performed By: #### U THUY, CMP #### [facility] [address] [address] [address] Igor Hayes Urea nitrogen [Mass/Vol] 16.0 mg/dL Normal 7.0-18.0 [facility] Comment on above: Performed By: #### U THUY, CMP #### [facility] [address] [address] [address] Igor Hayes Urea nitrogen/Creatinine [Mass ratio] 15.7 mg/mg Normal [facility] Comment on above: Performed By: #### U THUY, CMP #### [facility] [address] [address] [address] Igor Hayes URIC ACID SERUMon 10-09-2022 Urate [Mass/Vol] 4.9 mg/dL Normal 3.5-7.2 [facility] Comment on above: Performed By: #### U THUY, CMP #### [facility] [address] [address] [address] Igor Hayes Aspartate Amino Transferaseo n 07-30-2022 AST [Catalytic activity/Vol] 44 U/L High 10-42 [facility] Comment on above: Order Comment: PT FA STED 12 HRS Performed By: #### T SH3, BMP, AST #### [facility] [address] Basic Metabolic Panelon 07-06 Anion gap [Moles/Vol] 13.1 mmol/L Normal 6.0-15.0 [facility] Comment on above: Order Comment: PT FA STED 12 HRS Performed By: #### T SH3, BMP, AST #### [facility] [address] [place] [address] [place] Calcium [Mass/Vol] 9.4 mg/dL Normal 8.2-10.2 [facility] Comment on above: Order Comment: PT FA STED 12 HRS Performed By: #### T SH3, BMP, AST #### [facility] [address] Chloride [Moles/Vol] 101 mmol/L Normal 95-114 [facility] Comment on above: Order Comment: PT FA STED 12 HRS Performed By: #### T SH3, BMP, AST #### [facility] [address] [place] [address] [place] CO2 [Moles/Vol] 27.5 mmol/L Normal 22.0-30.0 [facility] Comment on above: Order Comment: PT FA STED 12 HRS Performed By: #### T SH3, BMP, AST #### [facility] [address] Creatinine [Mass/Vol] 1.03 mg/dL Normal 0.64-1.27 [facility] Comment on above: Order Comment: PT FA STED 12 HRS Performed By: #### T SH3, BMP, AST #### [facility] [address] Estimated GFR ( Mary > 60 [facility] Comment on above: Order Comment: PT FA STED 12 HRS Result Comment: GFR estimated reference range: According to KDOQI guidelines, <60 ml/min/1.73m2 is sufficient to diagnose a patient with chronic kidney disease. Performed By: #### T SH3, BMP, AST #### [facility] [address] [place] [address] [place] Estimated GFR (Non- Am > 60 [facility] Comment on above: Order Comment: PT FA STED 12 HRS Performed By: #### T SH3, BMP, AST #### [facility] [address] [place] [address] [place] Glucose [Mass/Vol] 111 mg/dL High 70-100 [facility] Comment on above: Order Comment: PT FA STED 12 HRS Result Comment: [place] om Glucose Reference Range is dependent on time and content of last meal. Glucose of more than 200 mg/dL in a nonstressed, ambulatory subject supports the diagnosis of Diabetes Mellitus. ADA recommended reference range Performed By: #### T SH3, BMP, AST #### [facility] [address] Potassium [Moles/Vol] 4.6 mmol/L Normal 3.5-5.1 [facility] Comment on above: Order Comment: PT FA STED 12 HRS Performed By: #### T SH3, BMP, AST #### [facility] [address] [id number] [facility] Sodium [Moles/Vol] 137 mmol/L Normal 136-146 [facility] Comment on above: Order Comment: PT FA STED 12 HRS Performed By: #### T SH3, BMP, AST #### [facility] [address] [id number] [facility] Urea nitrogen [Mass/Vol] 15 mg/dL Normal 9-23 [facility] Comment on above: Order Comment: PT FA STED 12 HRS Performed By: #### T SH3, BMP, AST #### [facility] [address] No Panel Informationon 07-30 13.1\S\13.1 Normal 6.0-15.0 [facility] [address] DO Work Phone: 9.4\S\9.4 Normal 8.2-10.2 [facility] 250 DO Work Phone: 27.5\S\27.5 Normal 22.0-30.0 [facility] DO Work Phone: 101\S\101 Normal 95-114 [facility] 250 DO Work Phone: 4.6\S\4.6 Normal 3.5-5.1 [facility] [address] DO Work Phone: 137\S\137 Normal 136-146 [facility] 250 DO Work Phone: > 60 Normal [facility] Work Phone: Comment on above: GFR estimated refere nce range: According to KDOQI guidelines, <60 ml/min/1.73m2 is sufficient to diagnose a patient with chronic kidney disease. 1.03\S\1.03 Normal 0.64-1.27 [facility] Work Phone: 15\S\15 Normal 9-23 [facility] Work Phone: 111\S\111 above high threshold 70-100 [facility] Work Phone: Comment on above: Random Glucose Refer ence Range is dependent on time and content of last meal. Glucose of more than 200 mg/dL in a nonstressed, ambulatory subject supports the diagnosis of Diabetes Mellitus. ADA recommended reference range 44\S\44 above high threshold 10-42 [facility] Work Phone: 3.34\S\3.34 Normal 0.45-5.33 [facility] Work Phone: Comment on above: PERFORMED BY:[facility] [place], [place] [id number] MEDICAL DIRECTORSTEVEN NASH M.D. Radiologyon 07-30-2022 XR Chest 2 Views Normal [facility] Work Phone: Thyroid Stimulating Hormoneo 07-30-2022 TSH Qn 3.34 m[IU]/L Normal 0.45-5.33 [facility] Comment on above: Order Comment: PT FA STED 12 HRS Result Comment: PERF ORMED BY: [facility] [address] [place] [address] PATHOLOGIST WAFER FABRICATOR STEVEN NASH M.D. Performed By: #### T SH3, BMP, AST #### [facility] [address] [place] [address] [place] XR chest 2V*on 07-30-2022 XR chest 2V* [facility] [place] [address] [place] [address] XRay Report Signed Patient: Remedios Magaña MR#: [id number] 4 : 1955 Acct:[id number] Age/Sex: 66 / M ADM Date: 07/30/22 Loc: RT Room: Type: [facility] [address] Attending Dr: Marcus Recinos MD Copies to: Marcus Recinos MD, [facility] Ordering Provider: Marcus Recinos MD, [facility] Date of Service: 07/30/22 XR/XR chest 2V*: Z79.899, I48.92 Chest 2 views CLINICAL HISTORY: High risk medication use. COMPARISON: Chest 04/26/2022 FINDINGS: Heart is normal in size. Lungs are clear. No free air. XR/XR chest 2V* IMPRESSION: NO ACUTE CARDIOPULMONARY ABNORMALITY. Impression dictated by: Walt Miller Jr., D.OMariella07/30/2022 1:46 PM Dictation Location: [facility]- Transcribed By: [facility] 07/30/22 1346 Dictated By: Walt Miller Jr, DO 07/30/22 1346 Signed By: 07/30/22 1346 Normal [facility] Aspartate Amino Transferaseo n 04-26-2022 AST [Catalytic activity/Vol] 46 U/L High 10-42 [facility] Comment on above: Performed By: #### T SH3, AST, BMP #### [facility] [address] [place], [place] [id number] [facility] Basic Metabolic Panelon 04-05 Calcium [Mass/Vol] 9.5 mg/dL Normal 8.2-10.2 [facility] Comment on above: Performed By: #### T SH3, AST, BMP #### [facility] [address] [place] [address] Chloride [Moles/Vol] 101 mmol/L Normal 95-114 [facility] Comment on above: Performed By: #### T SH3, AST, BMP #### [facility] [address] [place] [address] [place] CO2 [Moles/Vol] 26.8 mmol/L Normal 22.0-30.0 [facility] Comment on above: Performed By: #### T SH3, AST, BMP #### [facility] [address] [place] [address] [place] Creatinine [Mass/Vol] 1.05 mg/dL Normal 0.64-1.27 [facility] Comment on above: Performed By: #### T SH3, AST, BMP #### [facility] [address] [place] [address] [place] Estimated GFR ( Mary > 60 Normal [facility] Comment on above: Result Comment: GFR estimated reference range: According to KDOQI guidelines, <60 ml/min/1.73m2 is sufficient to diagnose a patient with chronic kidney disease. Performed By: #### T SH3, AST, BMP #### [facility] [address] [place] [address] [place] Estimated GFR (Non- Am > 60 Normal [facility] Comment on above: Performed By: #### T SH3, AST, BMP #### [place] [address] [place] Glucose [Mass/Vol] 123 mg/dL High 70-100 [facility] Comment on above: Result Comment: [place] om Glucose Reference Range is dependent on time and content of last meal. Glucose of more than 200 mg/dL in a nonstressed, ambulatory subject supports the diagnosis of Diabetes Mellitus. ADA recommended reference range Performed By: #### T SH3, AST, BMP #### [facility] [address] [place] [address] [place] Potassium [Moles/Vol] 4.9 mmol/L Normal 3.5-5.1 [facility] Comment on above: Performed By: #### T SH3, AST, BMP #### [facility] [address] [place] [address] [place] Sodium [Moles/Vol] 138 mmol/L Normal 136-146 [facility] Comment on above: Performed By: #### T SH3, AST, BMP #### [facility] [address] [id number] [place] Urea nitrogen [Mass/Vol] 16 mg/dL Normal 07-27 [facility] Comment on above: Performed By: #### T SH3, AST, BMP #### [facility] [address] [id number] [place] Creatinine and Glomerular fi ltration rate.predicted panel (S/P/Bld)Ordered By: Marcus Recinos on 04-26-2022 Creatinine [Mass/Vol] 1.05 mg/dL 0.64-1.27 [facility] Estimated glomerular filtrat ion rate (GFR) non- AmericanOrdered By: Marcus Recinos on 04-26-2022 GFR/1.73 sq M.predicted among non-blacks MDRD (S/P/Bld) [Vol rate/Area] > 60 mL/Min [facility] No Panel InformationOrdered By: Marcus Recinos on 04-26-2022 Estimated GFR () > 60 mL/Min [facility] Comment on above: GFR estimated refere nce range: According to KDOQI guidelines, <60 ml/min/1.73m2 is sufficient to diagnose a patient with chronic kidney disease. Pharmacy Creatinine Clearance (Chem N/A [facility] No Panel Informationon 04-26 9.5\S\9.5 Normal 8.2-10.2 [facility] DO Work Phone: 26.8\S\26.8 Normal 22.0-30.0 [facility] DO Work Phone: [phone] 101\S\101 Normal 95-114 [facility] DO Work Phone: [phone] 4.9\S\4.9 Normal 3.5-5.1 [facility] DO Work Phone: [phone] 138\S\138 Normal 136-146 [facility] DO Work Phone: > 60 Normal [facility] DO Work Phone: Comment on above: GFR estimated refere nce range: According to KDOQI guidelines, <60 ml/min/1.73m2 is sufficient to diagnose a patient with chronic kidney disease. 1.05\S\1.05 Normal 0.64-1.27 [facility] Work Phone: 16\S\16 Normal 9-23 [facility] Work Phone: 123\S\123 above high threshold 70-100 [facility] DO Work Phone: Comment on above: Random Glucose Refer ence Range is dependent on time and content of last meal. Glucose of more than 200 mg/dL in a nonstressed, ambulatory subject supports the diagnosis of Diabetes Mellitus. ADA recommended reference range 46\S\46 above high threshold 10-42 [facility] Work Phone: 4.75\S\4.75 Normal 0.45-5.33 [facility] mcmahon 250 DO Work Phone: Comment on above: PERFORMED BY:[facility]1111 [place], [place] [id number] MEDICAL DIRECTORSTEVEN NASH M.D. Radiologyon 04-26-2022 XR Chest 2 Views [facility] Work Phone: Serum or plasma aspartate am inotransferase measurement (enzymatic activity/volume)Ordered By: Marcus Recinos on 04-26-2022 AST [Catalytic activity/Vol] 46 U/L 10-42 [facility] Serum or plasma calcium tiera urement (mass/volume)Ordered By: Marcus Recinos on 04-26-2022 Calcium [Mass/Vol] 9.5 mg/dL 8.2-10.2 [facility] Serum or plasma chloride marly surement (moles/volume)Ordered By: Marcus Recinos on 04-26-2022 Chloride [Moles/Vol] 101 mmol/L 95-114 [facility] Serum or plasma glucose tiera urement (mass/volume)Ordered By: Marcus Recinos on 04-26-2022 Glucose [Mass/Vol] 123 mg/dL 70-100 [facility] Comment on above: ADA recommended refe rence range Random Glucose Reference Range is dependent on time and content of last meal. Glucose of more than 200 mg/dL in a nonstressed, ambulatory subject supports the diagnosis of Diabetes Mellitus. Serum or plasma potassium me asurement (moles/volume)Ordered By: Velazquezliz Valeraim on 04-26-2022 Potassium [Moles/Vol] 4.9 mmol/L 3.5-5.1 [facility] Serum or plasma sodium measu rement (moles/volume)Ordered By: Marcus Pritchardahim on 04-26-2022 Sodium [Moles/Vol] 138 mmol/L 136-146 [facility] Serum or plasma total carbon dioxide measurement (moles/volume)Ordered By: Marcus Pritchardahim on 04-26-2022 CO2 [Moles/Vol] 26.8 mmol/L 22.0-30.0 [facility] Serum or plasma urea nitroge n measurement (mass/volume)Ordered By: Marcus Recinos on 04-26-2022 Urea nitrogen [Mass/Vol] 16 mg/dL 07-27 [facility] TSH DL <= 0.005 mIU/L QnOrde red By: Marcus Recinos on 04-26-2022 TSH Qn 4.75 m[IU]/L 0.45-5.33 [facility] Thyroid Stimulating Hormoneo n 04-26-2022 TSH Qn 4.75 m[IU]/L Normal 0.45-5.33 [facility] Comment on above: Result Comment: PERF ORMED BY: [facility] [address] [place] [address] PATHOLOGIST WAFER FABRICATOR STEVEN NASH M.D. Performed By: #### T SH3, AST, BMP #### [facility] [address] XR chest 2V*on 04-26-2022 XR chest 2V* [facility] [place] [address] [place], [place] [id number] XRay Report Signed Patient: Remedios Magaña MR#: [id number] 4 : 1955 Acct:[id number] Age/Sex: 66 / M ADM Date: 04/26/22 Loc: RT Room: Type: [facility] Attending Dr: Marcus Recinos MD Copies to: Marcus Recinos MD, [facility] Ordering Provider: Marcus Recinos MD, [facility] Date of Service: 04/26/22 XR/XR chest 2V*: I48.92,Z79.899 PA AND LATERAL CHEST: CLINICAL HISTORY: A. Fib. alf medication use. COMPARISON: Chest 01/21/2022 FINDINGS: Heart is normal in size. Lungs are clear. No free air. Osseous structures demonstrate degenerative change. XR/XR chest 2V* IMPRESSION: NO ACUTE CARDIOPULMONARY ABNORMALITY. Impression dictated by: Walt Miller Jr., D.OMariella04/26/2022 1:38 PM Dictation Location: [place] [address] Transcribed By: [facility] 04/26/22 1338 Dictated By: Walt Miller Jr, DO 04/26/22 1337 Signed By: 04/26/22 1338 [facility] Office Visit (Cardiology)on 04-24-2022 Follow-up visit Diagnoses/Problems [...] in adult Healthy Weight Tips; Status:Complete; Done: [id number] SocHx: Former smoker Tobacco Use Screening; Status:Complete; Done: [id number] Unlinked Stop: predniSONE 20 MG Oral Tablet Patient Instructions By signing my name below, Leslie Pace LPN, Scribe, attest that this documentation has [...] Screening.on 022 Adult depression screening assessment No [facility] 250 DO Work Phone: Fall risk assessment a) No falls within the last year [facility] Work Phone: Tobacco use status [facility]PH[facility] b) [facility] DO Work Phone: No Panel Informationon 03-27 135\S\135 below low threshold 136-146 [facility] 250 DO Work Phone: [phone] 4.7\S\4.7 Normal 3.5-5.1 [facility] 250 DO Work Phone: [phone] 99\S\99 Normal 95-114 [facility] 250 DO Work Phone: [phone] 25.4\S\25.4 Normal 22.0-30.0 [facility] 250 DO Work Phone: Comment on above: PERFORMED BY:[place] [address] [address] [place], [place] [id number] MEDICAL DIRECTORSTEVEN NASH M.D. Serum or plasma chloride marly surement (moles/volume)Ordered By: Marcus Recinos on 03-27-2022 Chloride [Moles/Vol] 99 mmol/L 95-114 [facility] Serum or plasma potassium me asurement (moles/volume)Ordered By: Marcus Recinos on 03-27-2022 Potassium [Moles/Vol] 4.7 mmol/L 3.5-5.1 [facility] Serum or plasma sodium measu rement (moles/volume)Ordered By: Marcus Recinos on 03-27-2022 Sodium [Moles/Vol] 135 mmol/L 136-146 [facility] Serum or plasma total carbon dioxide measurement (moles/volume)Ordered By: Marcus Recinos on 03-27-2022 CO2 [Moles/Vol] 25.4 mmol/L 22.0-30.0 [facility] COVID-19 SOFIAOrdered By: Lincoln Recinos on 03-23-2022 SARS-CoV+SARS-CoV-2 (COVID-19) Ag IA.rapid Ql (Resp) Negative Negative [facility] Comment on above: This is a duplicate Larisa SARS Antigen (TYSON) result to be used for statistical tracking purpose only. Laboratory - Microbiology an d Antimicrobial susceptibilityon 03-23-2022 SARS-CoV-2 (COVID-19) RNA VERONIQUE+probe Ql (Unsp spec) [facility] y 250 DO Work Phone: No Panel InformationOrdered By: Marcus Recinos on 03-23-2022 SARS Antigen (LFIA) [facility] No Panel Informationon 03-23 Negative Normal Negative -[facility] y 250 DO Work Phone: Comment on above: This is a duplicate Larisa SARS Antigen (TYSON) result to be used for statistical tracking purpose only.PERFORMED BY:[facility] [place], [place] [phone] MEDICAL DIRECTORSTEVEN NASH M.D. Covid-19 PCR (CVDTBH)on 03-04 SARS-CoV-2 (COVID-19) RNA VERONIQUE+probe Ql (Unsp spec) Not detected Normal NOT DETECTED [facility] Comment on above: Result Comment: This test is not yet approved or cleared by the [place] FDA. When there are no FDA-approved or cleared tests available, and other criteria are met, FDA can make tests available under an emergency access mechanism called an Emergency Use Authorization (EUA). The EUA for this test is supported by the [place] of Health and Human Service's (HHS's) declaration [...] consistent with SARS-CoV-2. Performed By: #### C VDTBH #### [facility] [address] [place] [address] Dr. Igor Hayes INFLUENZA A AND B AGon 03-[facility] SEE BELOW Normal [facility] Comment on above: Result Comment: Nega tive for Flu A protein angiten. Infection due to Flu A cannot be ruled out. Flu A angiten in the sample may be below the detection limit of the test. Performed By: #### O BSCRN #### [facility] [address] [place] [address] Dr. [facility] BEL[facility] Normal [facility] Comment on above: Result Comment: Nega tive for Flu B protein antigen. Infection due to Flu B cannot be ruled out. Flu B antigen in the sample may be below the detection limit of the test. Performed By: #### O BSCRN #### [facility] [address] [place] [address] Dr. Igor Hayes INFLUENZA A AG Negative Normal NEGATIVE SEE COMMENT [facility] Comment on above: Performed By: #### O BSCRN #### [facility] [address] [place] [address] Dr. Igor Hayes INFLUENZA B AG Negative Normal NEGATIVE SEE COMMENT [facility] Comment on above: Performed By: #### O BSCRN #### [facility] [address] [place] [address] Dr. Igor Hayes INTERNAL CONTROLS Within Normal Limits Normal Wi thin Normal Limits [facility] Comment on above: Performed By: #### O BSCRN #### [facility] [address] [place] [address] Dr. Igor Hayes Office Visit (Cardiology)on 02-13-2022 [...] Weight Tips; Status:Complete - Retrospective Authorization; Done: [id number] Hyperlipidemia Renew: Simvastatin 20 MG Oral Tablet; TAKE 1 TABLET DAILY SocHx: Former smoker Tobacco Use Screening; Status:Complete; Done: [id number] Unspecified atrial flutter Start: Amiodarone HCl - 200 MG Oral Tablet; Take 1 tablet twice daily IO EKG Electrocardiogram- 12 Lead; Status:Complete; Done: 13Feb2022 Unlinked Stop: Digoxin 125 MCG Oral Tablet [...] Systems Constitutio (more content not included)... Normal [place] Tobacco Screening.on 022 Adult depression screening assessment No [facility] y 250 DO Work Phone: Fall risk assessment a) No falls within the last year [facility] 250 DO Work Phone: Tobacco use status CP b) No [facility] 250 DO Work Phone: Glucose Glucometer (BldC) [M ass/Vol]Ordered By: Jin Berkowitz on 01-23-2022 Glucose [Mass/Vol] 155 mg/dL [facility] Comment on above: Random Glucose Refer ence Range is dependent on time and content of last meal. Glucose of more than 200 mg/dL in a nonstressed, ambulatory subject supports the diagnosis of Diabetes Mellitus. Activated partial thrombopla stin time (aPTT) in platelet poor plasma by coagulation aOrdered By: Ama Morrison on 01-22-2022 aPTT Coag (PPP) [Time] 71.1 s 25.1-36.5 [facility] Creatinine and Glomerular fi ltration rate.predicted panel (S/P/Bld)Ordered By: Ama Morrison on 01-22-2022 Creatinine [Mass/Vol] 1.04 mg/dL 0.64-1.27 [facility] Estimated glomerular filtrat ion rate (GFR) non- AmericanOrdered By: Ama Morrison on 01-22-2022 GFR/1.73 sq M.predicted among non-blacks MDRD (S/P/Bld) [Vol rate/Area] > 60 mL/Min [facility] No Panel InformationOrdered By: Jin Berkowitz on 01-22-2022 Bedside Glucose Comment Glu2: cleaned meter [facility] No Panel InformationOrdered By: Ama Morrison on 01-22-2022 Estimated GFR () > 60 mL/Min [facility] Comment on above: GFR estimated refere nce range: According to KDOQI guidelines, <60 ml/min/1.73m2 is sufficient to diagnose a patient with chronic kidney disease. Pharmacy Creatinine Clearance (Chem 82.75 [facility] Serum or plasma calcium tiera urement (mass/volume)Ordered By: Ama Morrison on 01-22-2022 Calcium [Mass/Vol] 9.4 mg/dL 8.2-10.2 [facility] Serum or plasma chloride marly surement (moles/volume)Ordered By: Ama Morrison on 01-22-2022 Chloride [Moles/Vol] 99 mmol/L 95-114 [facility] Serum or plasma glucose tiera urement (mass/volume)Ordered By: Ama Morrison on 01-22-2022 Glucose [Mass/Vol] 117 mg/dL 70-100 [facility] Comment on above: ADA recommended refe [...] on 01-22-2022 Potassium [Moles/Vol] 4.6 mmol/L 3.5-5.1 [facility] Serum or plasma sodium measu rement (moles/volume)Ordered By: Ama Morrison on 01-22-2022 Sodium [Moles/Vol] 139 mmol/L 136-146 [facility] Serum or plasma total carbon dioxide measurement (moles/volume)Ordered By: Ama Morrison on 01-22-2022 CO2 [Moles/Vol] 29.5 mmol/L 22.0-30.0 [facility] Serum or plasma urea nitroge n measurement (mass/volume)Ordered By: Ama Morrison on 01-22-2022 Urea nitrogen [Mass/Vol] 17 mg/dL 9-23 [facility] Basophils Auto (Bld) [#/Vol] Ordered By: Pola Anders on 01-21-2022 Basophils (Bld) [#/Vol] 0.1 10*3/uL 0.0-0.2 [facility] Basophils/100 WBC Auto (Bld) Ordered By: Pola Anders on 01-21-2022 Basophils/100 WBC (Bld) 1.2 % [facility] Blood hemoglobin measurement (mass/volume)Ordered By: Pola Anders on 01-21-2022 Hemoglobin (Bld) [Mass/Vol] 15.9 g/dL 13.0-17.0 [facility] Blood leukocytes automated c ount (number/volume)Ordered By: Pola Anders on 01-21-2022 WBC (Bld) [#/Vol] 4.9 10*3/uL 4.5-11.0 [facility] Eosinophils Auto (Bld) [#/Vo l]Ordered By: Pola Anders on 01-21-2022 Eosinophils (Bld) [#/Vol] 0.2 10*3/uL 0.0-0.45 [facility] Eosinophils/100 WBC Auto (Bl d)Ordered By: Pola Anders on 01-21-2022 Eosinophils/100 WBC (Bld) 3.1 % [facility] Erythrocyte distribution wid th Auto (RBC) [Ratio]Ordered By: Pola Anders on 01-21-2022 Erythrocyte distribution width (RBC) [Ratio] 13.4 % 12.0-14.8 [facility] Hematocrit Auto (Bld) [Volum e fraction]Ordered By: Pola Anders on 01-21-2022 Hematocrit (Bld) [Volume fraction] 46.7 % 38.8-50.0 [facility] Laboratory - Hematology and Cell countsOrdered By: Pola Anders on 01-21-2022 Nucleated RBC/100 WBC (Bld) [Ratio] 0.2 % 0-0.5 [facility] Lymphocytes Auto (Bld) [#/Vo l]Ordered By: Pola Anders on 01-21-2022 Lymphocytes (Bld) [#/Vol] 1.3 10*3/uL 1.00-4.8 [facility] Lymphocytes/100 WBC Auto (Bl d)Ordered By: Pola Anders on 01-21-2022 Lymphocytes/100 WBC (Bld) 26.4 % [facility] MCH Auto (RBC) [Entitic mass ]Ordered By: Pola Martita on 01-21-2022 MCH (RBC) [Entitic mass] 30.8 pg 27.5-35.2 [facility] MCHC Auto (RBC) [Mass/Vol]Or dered By: Pola Martita on 01-21-2022 MCHC (RBC) [Mass/Vol] 34.2 g/dL 32.5-35.6 [facility] MCV Auto (RBC) [Entitic vol] Ordered By: Pola Martita on 01-21-2022 MCV (RBC) [Entitic vol] 90.2 fL 83.5-101 [facility] Monocytes Auto (Bld) [#/Vol] Ordered By: Pola Martita on 01-21-2022 Monocytes (Bld) [#/Vol] 0.6 10*3/uL 0.0-0.8 [facility] Monocytes/100 WBC Auto (Bld) Ordered By: Pola Martita on 01-21-2022 Monocytes/100 WBC (Bld) 13.0 % [facility] Neutrophils Auto (Bld) [#/Vo l]Ordered By: Pola Martita on 01-21-2022 Neutrophils (Bld) [#/Vol] 2.8 10*3/uL 1.8-7.7 [facility] Neutrophils/100 WBC Auto (Bl d)Ordered By: Pola Martita on 01-21-2022 Neutrophils/100 WBC (Bld) 56.3 % [facility] Platelet mean volume Auto (B ld) [Entitic vol]Ordered By: Pola Martita on 01-21-2022 Platelet mean volume (Bld) [Entitic vol] 9.2 fL 6.6-10.1 [facility] Platelets Auto (Bld) [#/Vol] Ordered By: Pola Martita on 01-21-2022 Platelets (Bld) [#/Vol] 176 10*3/uL 150-450 [facility] RBC Auto (Bld) [#/Vol]Ordere d By: Pola Martita on 01-21-2022 RBC (Bld) [#/Vol] 5.18 10*6/uL 3.90-5.60 [facility] Cholesterol [Mass/volume] in Serum or PlasmaOrdered By: Pola Anders on 01-20-2022 Cholesterol [Mass/Vol] 155 mg/dL 140-200 [facility] Comment on above: Chol less than 200 m g/dl low riskChol 201-239 mg/dl borderline riskChol 240 mg/dl and greater high risk Chol less than 200 m g/dl low risk Chol 201-239 mg/dl borderline risk Chol 240 mg/dl and greater high risk Cholesterol in LDL Calc [Mas s/Vol]Ordered By: Pola Anders on 01-20-2022 Cholesterol in LDL [Mass/Vol] 82 mg/dL 0-100 [facility] Comment on above: LDL ATP III [...] 01-20-2022 Cholesterol in VLDL [Mass/Vol] 31 mg/dL [facility] Glucose mean value [Mass/vol ume] in Blood Estimated from glycated hemoglobinOrdered By: Pola Anders on 01-20-2022 Average glucose Estimated from glycated hemoglobin (Bld) [Mass/Vol] 140 mg/dL [facility] Hemoglobin A1c percentageOrd ered By: Pola Anders on 01-20-2022 HbA1c (Bld) [Mass fraction] 6.5 % 4.3-5.6 [facility] Comment on above: Increased risk for d iabetes: 5.7 - 6.4diabetes: >6.4glycemic control for adults with diabetes: <7.0 Increased risk for d iabetes: 5.7 - 6.4 diabetes: >6.4 glycemic control for adults with diabetes: <7.0 Laboratory - CoagulationOrde red By: Pola Anders on 01-20-2022 PT Coag (PPP) [Time] 15.6 s 9.0-12.9 [facility] Platelet poor plasma interna tional normalized ratio (INR) by coagulation assay (relatOrdered By: Pola Anders on 01-20-2022 INR Coag (PPP) [Relative time] 1.4 {INR} [facility] Comment on above: INR Therapeutic Rang [...] Cholesterol in HDL [Mass/Vol] 41 mg/dL 29-71 [facility] Comment on above: HDL CHOL ATP-III [...] olesterol in HDL [Mass ratio] 3.8 {ratio} [facility] Triglyceride [Mass/volume] i n Serum or PlasmaOrdered By: Pola Anders on 01-20-2022 Triglyceride [Mass/Vol] 158 mg/dL 35-149 [facility] Comment on above: TRIG ATP III [...] High sensitivity method [Mass/Vol] 7 pg/mL 0-20 [facility] Vital Signs Date Time Vital Sign Value Performing Clinician Facility 12-04-2023 09:03-0500 Body height 182.9 cm Marcus Recinos MD Work Phone: [facility] 12-04-2023 09:03-0500 Body mass index (BMI) [Ratio] 31.46 kg/m2 Marcus Recinos MD Work Phone: [facility] 12-04-2023 09:03-0500 Body weight 105.23 kg Marcus Recinos MD Work Phone: [facility] 12-04-2023 09:03-0500 Diastolic blood pressure 72 mm[Hg] Marcus Recinos MD Work Phone: [facility] 12-04-2023 09:03-0500 Heart rate 61 /min Marcus Recinos MD Work Phone: [facility] 12-04-2023 09:03-0500 Systolic blood pressure 118 mm[Hg] Marcus Recinos MD Work Phone: [facility] 02-08-2023 10:42-0400 Body height 182.88 cm Tirso Gamezy Work Phone: [facility] 250 DO Work Phone: 02-08-2023 10:42-0400 Body mass index (BMI) [Ratio] 30.65 kg/m2 Tirso M Hoy Work Phone: [facility] 250 DO Work Phone: 02-08-2023 10:42-0400 Body surface area Derived from formula 2.24 m2 Tirso Rivera Hoy Work Phone: [facility] 250 DO Work Phone: 02-08-2023 10:42-0400 Body weight 102.51 kg Tirso Rivera Hoy Work Phone: [facility] 250 DO Work Phone: 02-08-2023 10:42-0400 Diastolic blood pressure 83 mm[Hg] Tirso Rivera Hoy Work Phone: [facility] 250 DO Work Phone: 02-08-2023 10:42-0400 Heart rate 54 /min Tirso Rivera Hoy Work Phone: [facility] 250 DO Work Phone: 02-08-2023 10:42-0400 Systolic blood pressure 128 mm[Hg] Tirso Rivera Hoy Work Phone: [facility] 250 DO Work Phone: 11-08-2022 11:01-0500 Body height 182.88 cm Tirso Rivera Hoy Work Phone: [facility] 250 DO Work Phone: 11-08-2022 11:01-0500 Body mass index (BMI) [Ratio] 30.92 kg/m2 Tirso Rivera Hoy Work Phone: [facility] 250 DO Work Phone: 11-08-2022 11:01-0500 Body surface area Derived from formula 2.25 m2 Tirso Rivera Hoy Work Phone: [facility] 250 DO Work Phone: 01-05-2023 11:01-0500 Body weight 103.42 kg Tirso M Hoy Work Phone: [facility] 250 DO Work Phone: 11-08-2022 11:01-0500 Diastolic blood pressure 72 mm[Hg] Tirso M Hoy Work Phone: [facility] 250 DO Work Phone: 11-08-2022 11:01-0500 Heart rate 49 /min Tirso M Hoy Work Phone: [facility] 250 DO Work Phone: 11-08-2022 11:01-0500 Systolic blood pressure 110 mm[Hg] Tirso M Hoy Work Phone: [facility] 250 DO Work Phone: 04-24-2022 14:21-0400 Body height 182.88 cm Tirso Miguel Hoy Work Phone: [facility] 250 DO Work Phone: 04-24-2022 14:21-0400 Body mass index (BMI) [Ratio] 30.38 kg/m2 Tirso M Hoy Work Phone: [facility] 250 DO Work Phone: 04-24-2022 14:21-0400 Body surface area Derived from formula 2.24 m2 Tirso Miguel Hoy Work Phone: [facility] 250 DO Work Phone: 04-24-2022 14:21-0400 Body weight 101.61 kg Tirso M Hoy Work Phone: [facility] 250 DO Work Phone: 04-24-2022 14:21-0400 Diastolic blood pressure 80 mm[Hg] Tirso M Hoy Work Phone: [facility] 250 DO Work Phone: 04-24-2022 14:21-0400 Heart rate 51 /min Tirso Rivera Hoy Work Phone: [facility] 250 DO Work Phone: 04-24-2022 14:21-0400 Systolic blood pressure 118 mm[Hg] Tirso Rivera Hoy Work Phone: [facility] 250 DO Work Phone: 04-17-2022 12:00-0400 Body temperature 97.34 [degF] Sarath Menendezer [facility] 04-17-2022 12:00-0400 Diastolic blood pressure 68 mm[Hg] Sarath Crumhler [facility] 04-17-2022 12:00-0400 Heart rate 50 /min Sarath Menendezer [facility] 04-17-2022 12:00-0400 SaO2% (BldA) [Mass fraction] 96 % Sarath Crumhler [facility] 04-17-2022 12:00-0400 Systolic blood pressure 100 mm[Hg] Sarath Crumhler [facility] 04-17-2022 11:36-0400 Blood Pressure Location Sarath Menendezer [facility] 04-17-2022 11:36-0400 BP/Pulse Patient Position Sarath Crumhler [facility] 04-17-2022 11:36-0400 Diastolic blood pressure 75 mm[Hg] Sarath Zahler [facility] 04-17-2022 11:36-0400 Heart rate 47 /min Sarath Menendezer [facility] 04-17-2022 11:36-0400 Respiratory rate 18 /min Sarath Crumhler [facility] 04-17-2022 11:36-0400 SaO2% (BldA) [Mass fraction] 94 % Sarath Zahler [facility] 04-17-2022 11:36-0400 Systolic blood pressure 109 mm[Hg] Sarath Crumhler [facility] 04-17-2022 11:20-0400 Blood Pressure Location Sarath Menendezer [facility] 04-17-2022 11:20-0400 BP/Pulse Patient Position Sarath Crumhler [facility] 04-17-2022 11:20-0400 Diastolic blood pressure 82 mm[Hg] Sarath Crumhler [facility] 04-17-2022 11:20-0400 Heart rate 47 /min Sarath Crumhler [facility] 04-17-2022 11:20-0400 Respiratory rate 18 /min Sarath Zahler [facility] 04-17-2022 11:20-0400 SaO2% (BldA) [Mass fraction] 94 % Sarath Crumhler [facility] 04-17-2022 11:20-0400 Systolic blood pressure 110 mm[Hg] Sarath Crumhler [facility] 04-17-2022 09:32-0400 Blood Pressure Location Sarath Zahler [facility] 04-17-2022 09:32-0400 BP/Pulse Patient Position Sarath Crumhler [facility] 04-17-2022 09:32-0400 Mean blood pressure 76 mm[Hg] Sarath Hines [facility] 04-17-2022 09:31-0400 Body temperature 98.6 [degF] Sarath Hines [facility] 04-17-2022 09:31-0400 Mean blood pressure 79 mm[Hg] Sarath Hines [facility] 04-17-2022 09:31-0400 Respiratory rate 20 /min Sarath Hines [facility] 03-27-2022 09:00-0400 Inhaled oxygen flow rate 2 L/min Tirso Frausto Work Phone: [facility] 02-27-2022 12:16-0400 Body height 182.88 cm Tirso Miguel Hoy Work Phone: [facility] 250 DO Work Phone: 02-27-2022 12:16-0400 Body mass index (BMI) [Ratio] 30.65 kg/m2 Tirso M Hoy Work Phone: [facility] 250 DO Work Phone: 02-27-2022 12:16-0400 Body surface area Derived from formula 2.24 m2 Tirso M Hoy Work Phone: [facility] 250 DO Work Phone: 02-27-2022 12:16-0400 Body weight 102.51 kg Tirso M Hoy Work Phone: [facility] 250 DO Work Phone: 02-27-2022 12:16-0400 Diastolic blood pressure 80 mm[Hg] Tirso M Hoy Work Phone: [facility] [address] DO Work Phone: 02-27-2022 12:16-0400 Heart rate 79 /min Tirso Rivera Hoy Work Phone: [facility] 250 DO Work Phone: 02-27-2022 12:16-0400 Systolic blood pressure 110 mm[Hg] Tirso Miguel Hoy Work Phone: [facility] 250 DO Work Phone: 02-13-2022 13:01-0400 Body height 182.88 cm Tirso Rivera Hoy Work Phone: [facility] 250 DO Work Phone: 02-13-2022 13:01-0400 Body mass index (BMI) [Ratio] 30.11 kg/m2 Tirso Rivera Hoy Work Phone: [facility] 250 DO Work Phone: 02-13-2022 13:01-0400 Body surface area Derived from formula 2.23 m2 Tirso Miguel Hoy Work Phone: [facility] 250 DO Work Phone: 02-13-2022 13:01-0400 Body weight 100.7 kg Tirso Rivera Hoy Work Phone: [facility] 250 DO Work Phone: 02-13-2022 13:01-0400 Diastolic blood pressure 72 mm[Hg] Tirso Rivera Hoy Work Phone: [facility] 250 DO Work Phone: 02-13-2022 13:01-0400 Heart rate 104 /min Tirso Miguel Hoy Work Phone: [facility] 250 DO Work Phone: 02-13-2022 13:01-0400 Systolic blood pressure 104 mm[Hg] Tirso Miguel Hoy Work Phone: [facility] 250 DO Work Phone: 01-23-2022 08:00-0400 Body temperature 97.8 [degF] MD Tirso Frausto Work Phone: [facility] 01-23-2022 08:00-0400 Diastolic blood pressure 64 mm[Hg] MD iTrso Frausto Work Phone: [facility] 01-23-2022 08:00-0400 Heart rate 73 /min MD Tirso Frausto Work Phone: [facility] 01-23-2022 08:00-0400 Respiratory rate 18 /min MD Tirso Frausto Work Phone: [facility] 01-23-2022 08:00-0400 SaO2% (BldA) [Mass fraction] 93 % MD Tirso Frausto Work Phone: [facility] 01-23-2022 08:00-0400 Systolic blood pressure 100 mm[Hg] MD Tirso Frausto Work Phone: [facility] 01-23-2022 05:57-0400 Body weight 93.1 kg MD Tirso Frausto Work Phone: [facility] 01-22-2022 08:40-0400 Inhaled oxygen flow rate 2 L/min MD Tirso Frausto Work Phone: [facility] 01-20-2022 16:12-0400 55 1 Tirso Frausto Work Phone: [facility] [facility] DO Work Phone: Comment on above: [id number] 01-20-2022 02:09-0400 Body height 182.88 cm MD Tirso Frausto Work Phone: [facility] 01-20-2022 02:09-0400 Body mass index (BMI) [Ratio] 29.9 kg/m2 MD Tirso Frausto Work Phone: [facility] Encounters Encounter Date Encounter Type Care Provider Facility Start: 06-03-2024 End: 06-03-2024 ambulatory [facility] Ambulatory Start: 12-04-2023 End: 12-04-2023 Office outpatient visit 25 minutes Marcus Recinos MD Work Phone: [facility] Comment on above: Atrial flutter, unsp ecified type (CMS/HCC) (Primary Dx); Benign essential hypertension; High risk medication use; Hyperlipidemia, unspecified hyperlipidemia type; Pulmonary emphysema, unspecified emphysema type (CMS/HCC); Coronary artery disease involving twenty-nine palms coronary artery of twenty-nine palms heart without angina pectoris; Obesity, Class I, BMI 30-34.9 Start: 12-04-2023 End: 12-04-2023 ambulatory MARCUS [facility] Ambulatory Start: 05-06-2023 Patient encounter procedure Tirso Frausto Work Phone: [facility] [facility] DO Work Phone: Start: 03-08-2023 End: 03-09-[address] TIRSO FRAUSTO . Facility:H1 Start: 02-08-2023 Patient encounter procedure Tirso Frausto Work Phone: [facility] [facility] DO Work Phone: Start: 02-08-[address] Darwin Perdomo Facility: Start: 02-05-2023 AUDIT Tirso Frausto Work Phone: [facility] [facility] DO Work Phone: Start: 02-01-2023 End: 02-01-2023 ambulatory NOELLE VALERA Facility:H1 Start: 01-22-2023 End: 01-22-2023 ambulatory Jina Rios Other [employer] [facility] [employer] Other Start: 01-22-2023 Telephone encounter Jina Rios [facility] Start: 01-21-2023 Telephone encounter Tirso Frausto Work Phone: [facility] [facility] DO Work Phone: Start: 01-10-2023 End: 01-11-[address] MARCUS RECINOS Facility:H1 Start: 01-01-2023 ([facility] R A/c) [facility] Re peat A/C Espinoza Sansohail [facility] Start: 01-01-2023 [facility] Start: 01-01-2023 End: 01-02-2023 ambulatory Marcus Recinos [facility] [employer] Other Start: 12-20-2022 Patient encounter procedure Tirso Frausto Work Phone: [facility] 250 DO Work Phone: Start: 12-10-2022 ([facility] R A/c) [facility] Re peat A/C Victoria [facility] Start: 12-10-2022 End: 12-10-2022 ambulatory Victoria Guanako Other [employer] Other Start: 11-26-2022 ([facility] R A/c) [facility] Re peat A/C Victoria Guanako [facility] Start: 11-26-2022 End: 11-26-2022 ambulatory Victoria Mujica Other [employer] Other Start: 11-15-2022 ([facility] R A/c) [facility] Re peat A/C Carlos A Salazar [facility] Start: 11-15-2022 End: 11-15-2022 ambulatory Carlos A Salazar Other [employer] [facility] [employer] Other Start: 11-14-2022 End: 11-15-[address] MARCUS RECINOS Facility:H1 Start: 11-08-2022 Office outpatient vi sit 25 minutes Tirso Frausto Work Phone: [facility] 250 DO Work Phone: Start: 11-08-2022 ambulatory Marcus Recinos Facility :[id number] Start: 11-02-2022 End: 11-03-[address] TIRSO FRAUSTO . Facility:H1 Start: 11-01-2022 End: 11-01-2022 ambulatory Jina Rios Other [facility] [employer] Other Start: 11-01-2022 Telephone encounter Jina Rios [facility] Start: 10-23-2022 End: 10-24-[address] MARCUS RECINOS Facility:H1 Start: 10-22-2022 End: 10-23-[address] ABHIJIT MIKE Facility:H1 Start: 10-15-2022 Telephone encounter Tirso Frausto Work Phone: [facility] [facility] DO Work Phone: Start: 10-10-2022 Patient encounter procedure Tirso Frausto Work Phone: [facility] [facility] DO Work Phone: Start: 10-09-2022 End: 10-10-[address] TIRSO FRAUSTO . Facility:H1 Start: 08-10-2022 Chart Update Tirso Frausto Work Phone: [facility] [facility] DO Work Phone: Start: 07-30-2022 End: 07-30-2022 ambulatory Marcus Recinos Facility:[facility] Start: 07-06-2022 Patient encounter procedure Tirso Frausto Work Phone: [facility] 250 DO Work Phone: Start: 05-15-2022 Rx Renewal Tirso Frausto Work Phone: [facility] [facility] DO Work Phone: Start: 04-26-2022 Chart Update Tirso Frausto Work Phone: [facility] [facility] DO Work Phone: Start: 04-26-2022 End: 04-26-2022 ambulatory Marcus Recinos Facility:[facility] Start: 04-26-2022 End: 04-26-2022 Patient encounter procedure MD Tirso Frausto Work Phone: [facility] Start: 04-24-2022 Office outpatient vi sit 25 minutes Tirso Frausto Work Phone: [facility] 250 DO Work Phone: Start: 04-24-2022 ambulatory Marcus Recinos Facility : Start: 04-19-2022 Rx Renewal Tirso Gamezsalome Work Phone: [facility] 600 DO Work Phone: Start: 04-17-2022 End: 04-17-2022 Admission to same day surgery center Sarath Hines [facility] Start: 03-28-2022 Chart Update Tirso Frausto Work Phone: [facility] 250 DO Work Phone: Start: 03-27-[address] Tirso Frausto Facility:[id number] Start: 03-27-2022 SURGNON, Provider: Marcus Recinos, Status: Pen, Time: 9:00 AM Tirso Frausto Work Phone: [facility] [facility] DO Work Phone: Start: 03-27-2022 End: 03-27-2022 Admission to same day surgery center MD Tirso Frausto Work Phone: [facility]Electro[facility] Start: 03-26-2022 Chart Update Tirso Frausto Work Phone: [facility] 250 DO Work Phone: Start: 03-23-2022 End: 03-23-2022 Patient encounter procedure MD Tirso Frausto Work Phone: [facility] Start: 03-15-2022 End: 03-15-[address] TIRSO FRAUSTO . Facility: Start: 03-08-2022 Patient encounter procedure Tirso M Lisbet Work Phone: [facility] [facility] DO Work Phone: Start: 03-01-2022 Telephone encounter Tirso Miguel Lisbet Work Phone: [facility] [facility] DO Work Phone: Start: 02-27-2022 ambulatory Marcus Recinos Facility : Start: 02-27-2022 Patient encounter procedure Tirso Rivera Lisbet Work Phone: [facility] 250 DO Work Phone: Start: 02-13-2022 Office outpatient vi sit 25 minutes Tirso Frausto Work Phone: [facility] [facility] DO Work Phone: Start: 02-13-2022 ambulatory Marcus Recinos Facility : Start: 01-25-2022 End: 01-25-2022 Patient encounter procedure MD Tirso Frausto Work Phone: [facility] [address] Start: 01-20-2022 End: 01-23-2022 Evaluation and management of inpatient MD Tirso Frausto Work Phone: [facility] [place] [facility] Procedures Date Procedure Procedure Detail Performing Clinician Start: 12-04-2023 ECG 12-LEAD MARCUS SUNSHINE Start: 12-04-2023 Ecg routine ecg w/le ast 12 lds w/i&r Marcus Recinos MD Work Phone: Start: 10-09-[address] ABHIJIT Riley ISTED REQUEST Comment on above: Performed By: #### O BSCRN #### [facility] [address] [place] [address] Dr. 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 Appendectomy Tirso Frausto Work Phone: Appendectomy Sarath Hines Cardiac catheterization Jim las M Lisbet Work Phone: Cardioversion Tirso M Lisbet Work Phone: Cataract surgery Tirso M H oy Work Phone: Hernia repair Tirso M Lisbet Work Phone: Primary repair of um bilical hernia Sarath Hines Repair of ventral hernia Pablito Hines Plan of Treatment Date Care Activity Detail Author Start: 04-12-2031 Screening for malignant neoplasm of colon [facility] Start: 06-03-2024 End: 06-03-2024 Patient encounter procedure 06/03/2024 10:00 AM EDT Office Visit [facility] [address] [facility] [address] [place] [address] Marcus Recinos MD [address] [facility] [address] [place] [address] [facility] Start: 07-05-2023 Influenza vaccination Influenza Vaccine (#1) [facility] Start: 05-29-2023 FUV, Provider: Marcus Recinos, Status: Pen, Time: 9:30 AM FUV, Provider: Marcus Recinos, Status: Pen, Time: 9:30 AM -[facility] 250 DO Work Phone: Start: 05-14-2023 FUV, Provider: Darwin Perdomo, Status: Pen, Time: 9:30 AM FUV, Provider: Darwin Perdomo, Status: Pen, Time: 9:30 AM -[facility] 250 DO Work Phone: Start: 11-08-2022 FUV, Provider: Marcus Recinos, Status: Pen, Time: 10:40 AM FUV, Provider: Marcus Recinos, Status: Pen, Time: 10:40 AM -[facility] [address] DO Work Phone: Start: 04-24-2022 FUV, Provider: Marcus Recinos, Status: Pen, Time: 2:10 PM FUV, Provider: Marcus Recinos, Status: Pen, Time: 2:10 PM -[facility] [address] DO Work Phone: Start: 03-27-2022 SURGNONUH, Provider: Marucs Recinos, Status: Pen, Time: 9:00 AM SURGNONUH, Provider: Marcus Recinos, Status: Pen, Time: 9:00 AM -[facility] [facility] DO Work Phone: Start: 02-27-2022 EKG, Provider: [facility] [employer] 1,[id number], Status: Pen, Time: 10:00 AM EKG, Provider: [employer] 1,[id number], Status: Pen, Time: 10:00 AM -[facility] [facility] DO Work Phone: Start: 2019 Abdominal aortic aneurysm screening Abdominal Aortic Aneurysm (AAA) Screening [facility] Start: 2004 Zoster Vaccines (1 of 2) Zoster Vaccines (1 of 2) [facility] Start: 1976 DTaP/Tdap/Td Vaccines (1 - Tdap) DTaP/Tdap/Td Vaccines (1 - Tdap) [facility] Start: 1972 Hepatitis C screening Hepatitis C Screening [facility] Start: 1960 Pneumococcal Vaccine: 65+ Years (1 - PCV) Pneumococcal Vaccine: 65+ Years (1 - PCV) [facility] Start: 04-30-1955 COVID-19 Vaccine (#1) COVID-19 Vaccine (#1) [facility] Start: 1954 Lipid panel Lipid Panel [facility] Start: 1954 Medicare Annual Wellness Visit Medicare Annual Wellness Visit (AWV) [facility] Start: 1954 Screening for malignant neoplasm of colon [facility] Start: 1954 Thyroid stimulating hormone measurement TSH Level [facility] Patient Education Cardiomyopathy (DC) Digoxin Enalapril Furosemide Metoprolol Spironolactone Atrial Flutter (DC) [facility] Work Phone: Patient referral [facility] Work Phone: Immunizations Immunization Date Immunization Notes Care Provider Fa carlton NEGATED: Highlighted row has not occurred!01-05-2021 influenza virus vaccine, unspecified formulation Saarth Hines [facility] Payers Date Payer Category Payer Self-pay [id number] 2019 Medicare MEDICARE MEDICAR E PART A AND B [id number] 2019-Present [address] [place] [address] [id number] 2019 Private Health Insurance AET[employer] S UPPLEMENTAL AETNA SENIOR SUPPLEMENT [id number] 2019-Present [address] [place] [address] [id number] 1959 Medicare [id number] 1959 Private Health Insurance [facility] [id number] 1954 Unknown [id number] 2.16.840.1.345565.3.579 .2.356 1954 Unknown [id number] 2.16.840.1.892565.3.579 .2.356 1954 Unknown [id number] 2.16.840.1.970587.3.579 .2.356 1954 Unknown [id number] 2.16.840.1.033572.3.579 .2.356 1954 Unknown [id number] 2.16.840.1.300154.3.579 .2.356 1954 Unknown [id number] 2.16.840.1.004907.3.579 .2.356 1954 Unknown [id number] 2.16.840.1.573693.3.579 .2.593 1954 Unknown [id number] 2.16.840.1.777994.3.579 .2.593 1954 Unknown [id number] 2.16.840.1.769184.3.579 .2.593 1954 Unknown [id number] 2.16.840.1.169311.3.579 .2.593 1954 Unknown [id number] 2.16.840.1.271327.3.579 .2.593 1954 Unknown [id number] 2.16.840.1.799937.3.579 .2.593 1954 Unknown [id number] 2.16.840.1.722764.3.579 .2.593 1954 Unknown [id number] 2.16.840.1.391915.3.579 .2.593 1954 Unknown [id number] 2.16.840.1.934619.3.579 .2.593 1954 Unknown [id number] 2.16.840.1.815214.3.579 .2.593 1954 Unknown [id number] 2.16.840.1.975126.3.579 .2.1244 1954 Unknown [id number] 2.16.840.1.927590.3.579 .2.1244 Unknown [id number] Unknown Unknown [id number] 2.16.840.1.979974.3.579 .2.531 Unknown [id number] 2.16.840.1.393334.3.579 .2.531 Unknown [id number] 2.16.840.1.608413.3.579 .2.531 Social History Date Type Detail Facility Start: 01-20-2022 End: 12-04-2023 Tobacco smoking status WVIS Ex-smoker (finding) [facility] Start: 12-04-2023 End: 09-30-2021 History of tobacco use [facility] Work Phone: Start: 1955 Sex Assigned At Male F [facility] Start: 12-04-2023 No illicit drug use No illicit drug use [facility] [facility] DO Work Phone: Comment on above: DRINKS 6 BEERS A DAY ; 2 CUPS OF COFFEE TANNER LY; QUIT IN 08/2021; Start: 04-20-2021 Tobacco smoking status Heavy t obacco smoker (finding) [facility] End: 11-04-2020 Tobacco smoking status Smoker (finding) [facility] Tobacco smoking status Never [facility] End: 11-04-2020 History of tobacco use Cigarette Smoker [facility] Work Phone: Start: 12-04-2023 Tobacco use and exposure Smokeless tobacco non-user [facility] Work Phone: Start: 12-04-2023 Alcohol intake Current drinke r of alcohol (finding) [facility] Work Phone: Start: 1955 Sex Assigned At Not on file [facility] Work Phone: Start: 11-24-2023 End: 12-04-2023 Exposure to SARS-CoV-2 (event) Not sure [facility] Medical Equipment Procedure Code Equipment Code Equipment Origin al Text Equipment Identifier Dates CATARACT EXTRACT ION W/ INTRAOCULAR LENS SkylaMunira melchor DOnathan 04/17/22 Non Biological Eye L [id number] [facility] Start: 04-17-2022 Goals Date Patient Goal Desired Activity /State Functional Status Date Assessment Result Facility 04-17-2022 Functional Status N/A Nraayanan - [facility] 01-23-2022 Functional status Patient at Baseline [facility] Work Phone: Mental Status Date Assessment Result Facility 01-23-2022 Cognitive function Cognitive Sta tus Patient at Baseline [facility] Work Phone: Clinical Notes 01-20-2022 to 12-04-2023 Marcus Recinos MD - 12/04/2023 9:00 AM ESTPatient Instructions Note Date & Type Note Facility 12-04-2023 History of Presen t illness Narrative Marla Magaña is a 68 y.o. 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 Coronary artery disease involving twenty-nine palms coronary artery of twenty-nine palms heart without angina pectoris 7. 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 Seen by Ana Mujica [facility], Qi ShermanD Candidate [employer] Other 01-23-2023 Evaluation note* Encounter Date Diagnosis [...] Ana Mujica [facility] [employer] Other 01-12-2023 Evaluation note* Encounter Date Diagnosis [...] week. Seen by Carlos A Salazar PharmD [facility] [employer] Other 06-01-2022 Hospital Discharge instructions Follow Up Care 04/04/2022 10:45:36 With:JOVANNA EDMONDS Address: [address] [place] [address] [phone]- ( [phone] Business (1) When:1 to 2 days [facility]05-24-2022 Procedure [facility]03-22-2022 Discharge summary Author Jin Berkowitz [facility] January 23, 2022 12:48pm Note Date/Time January 23, 2022 12: 48pm [facility] [address] [place] [address] Discharge Summary Signed Patient: Remedios Magaña MR#: [id number] : 1955 Acct:[id number] Age/Sex: 66 / M Adm Date: 2 Loc: Room: [address] [place] [address]: Jin Berkowitz MD Copies to: [...] reformed smoker was recommended to go to [place] ED after he was found to have [...] atrial flutter and was recommended togo to [place] [facility].? EKG done there showed changes suspicious for ACS, ED physician spoke to cardiology here and was recommended to transfer here for further evaluation and management.? The patient was transferred to [facility] for further evaluation. Cardiology was consulted. [...] Home Additional Instructions: DISCHARGE INSTRUCTIONS FOR CARDIAC GAMBLING BOX PERSON PHONE NUMBER OF YOUR PHYSICIAN: [phone] PROCEDURE: Heart Cath The following instructions have [...] cold, numb, blue or white, call the protection specialist immediately. 4. ACTIVITY: You are advised to [...] bottle, follow the instructions on the bottle. [facility] is not responsible for incorrect prescription [...] Patient Ordered By: Ama Morrison [facility]Outside] Marcus Recinos MD [Active Staff] - 02/13/22 12:40 pm Tirso Frausto MD [Primary Care Provider] - (You have been scheduled for a follow up appointment for the following date and time, please call to rescheduleif needed.) Documented By: Jin Berkowitz MD 01/23/221243 Signed By: <Electronically signed by Jin Berkowitz MD> 01/23/22 124 [facility] Work Phone: 1(816) 349-797503-22-2022 Progress note Author Brandt Petit [facility] January 23, 2022 8:50am Note Date/Time January 23, 2022 8:5 0am [facility] [address] [place] [address] Cardiology Progress Note Signed Patient: Remedios Magaña MR#: [id number] : 1955 Acct:[id number] Age/Sex: 66 / M Adm Date: 2 Loc: Room: [address] [place] [address] Type : ADM INOo Attending Dr: Jin [...] for elective cardioversion in 4 weeks for congregation of normal sinus mechanism (3) Diabetes mellitus: [...] signed by Brandt Petit MD> 01/23/22 0850 [facility] Work Phone: 1(921) 870-583303-22-2022 Hospital Discharge instructions Additional Instructions DISCHARGE INSTRUCTIONS FOR CARDIAC GAMBLING BOX PERSON PHONE NUMBER OF YOUR PHYSICIAN: [phone] PROCEDURE: Heart Cath The following instructions have [...] cold, numb, blue or white, call the protection specialist immediately. 4. ACTIVITY: You are advised to [...] bottle, follow the instructions on the bottle. [facility] is not responsible for incorrect prescription information provided by the patient during their visit. Do not stop your medications without consulting your health care provider. Please take the list with you to your next doctor's appointment.[facility] Work Phone: 1(134) 408-303003-21-2022 Progress note Author Jin Berkowitz [facility] January 22, 2022 1:17pm Note Date/Time January 22, 2022 1:1 2pm [facility] [address] [place] [address] Hospitalist Progress Note Signed Patient: Remedios Magaña MR#: [id number] : 1955 Acct:[id number] Age/Sex: 66 / M Adm Date: 2 Loc: Room: [address] [place] [address] Type : ADM INOo Attending Dr: Jin [...] Flush Tamsulosin HCl 0.4 mg 01/20/22 09:00 03/21/22 10:30 Tamsulosin 0.4 Mg Cap.Er.24h PO 01/20/23 [...] <Electronically signed by Jin Berkowitz MD> 01/22/22 1316 [facility] Work Phone: 1(680) 762-764203-20-2022 Progress note Author Ama Morrison [facility] January 21, 2022 5:02pm Note Date/Time January 21, 2022 3:1 9pm [facility] [address] [place] [address] Hospitalist Progress Note Signed with Addenda Patient: Remedios Magaña MR#: [id number] : 1955 Acct:[id number] Age/Sex: 66 / M Adm Date: 2 Loc: Room: [address] [place] [address] Type : ADM INOo Attending Dr: Ama Morrison MD Copies to: ~ ADDENDUM1 Patient will require close follow-up with his primary care provider regarding A1c of 6.5 including diabetic education and dietary modification. Addendum Documented By: Ama Morrison MD 01/21/22 1702 Addendum Signed By: <Electronically signed by Ama Morrison MD> 01/21/22 1702 Date of Service: 01/21/2022 Subjective Subjective Narrative: [...] <Electronically signed by Ama Morrison MD> 01/21/22 1522 [facility] Work Phone: 1(301) 841-960603-20-2022 Progress note Author Brandt Petit [facility] January 21, 2022 10:42am Note Date/Time January 21, 2022 10: 41am [facility] [address] [place] [address] Cardiology Progress Note Signed Patient: Remedios Magaña MR#: [id number] : 1955 Acct:[id number] Age/Sex: 66 / M Adm Date: 2 Loc: Room: [address] [place] [address] Type : ADM INOo Attending Dr: Ama [...] MPV Neut % (Auto) Lymph % (Auto) [place] % (Auto) Eos % (Auto) Baso % (Auto) Neut # (Auto) Lymph # (Auto) [place] # (Auto) Eos # (Auto) Baso # (Auto) Nucleated RBC % (auto) APTT POC Glucose 133 POC Glucose Comment Glu2: cleaned meter Troponin I High Sens 7 Add-On Test Request Cancelled 01/20/22 01/20/22 01/20/22 16:41 17:37 20:51 Corrected WBC Uncorrected WBC Count RBC Hgb Hct MCV MCH MCHC RDW Plt Count MPV Neut % (Auto) Lymph % (Auto) [place] % (Auto) Eos % (Auto) Baso % (Auto) Neut # (Auto) Lymph # (Auto) [place] # (Auto) Eos # (Auto) Baso # [...] % (Auto) 56.3 Lymph % (Auto) 26.4 [place] % (Auto) 13.0 Eos % (Auto) 3.1 Baso % (Auto) 1.2 Neut # (Auto) 2.8 Lymph # (Auto) 1.3 [place] # (Auto) 0.6 Eos # (Auto) 0.2 Baso # (Auto) 0.1 Nucleated RBC % (auto) 0.2 APTT 81.3 H POC Glucose 113 POC Glucose Comment Troponin I High Sens Add-On Test Request 01/21/22 07:15 Corrected WBC Uncorrected WBC Count RBC Hgb Hct MCV MCH MCHC RDW Plt Count MPV Neut % (Auto) Lymph % (Auto) [place] % (Auto) Eos % (Auto) Baso % (Auto) Neut # (Auto) Lymph # (Auto) [place] # (Auto) Eos # (Auto) Baso # [...] signed by Brandt Petit MD> 01/21/22 1042 [facility] Work Phone: 1(537) 589-736503-19-2022 Consult note Author Brandt Petit [facility] January 20, 2022 5:08pm Note Date/Time January 20, 2022 5:0 8pm [facility] [address] [place] [address] Cardiology Consult Note Signed Patient: Remedios Magaña MR#: [id number] : 1955 Acct:[id number] Age/Sex: 66 / M Adm Date: 2 Loc: Room: [address] [place] [address] Type : ADM INOo Attending Dr: Ama [...] breath with exertion. 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 In the [place] ER, an EKG was checked which again [...] mg-vit E 90 mg-zinc 40 mg-copper 1 hs-pidgwi-kqlcnm capsule (PreserVision AREDS-2) 1 tab PO BID [...] x10E3/uL Lymph # (Auto) 1.3 (1.00-4.8) x10E3/uL [place] # (Auto) 0.6 (0.0-0.8) x10E3/uL Eos # [...] challenging patient. Documented By: Brandt Petit MD 01/20/221655 Signed By: <Electronically signed by Brandt Petit MD> 01/20/22 1498 [facility] Work Phone: 1(778) 972-520103-19-2022 History and physical note [facility] 20, 2022 6:26am Note Date/Time January 20, 2022 2:4 5am [facility] [address] [place] [address] Hospitalist H&P Signed Patient: Remedios Magaña MR#: [id number] : 1955 Acct:[id number] Age/Sex: 66 / M Adm Date: 2 Loc: Room: [address] [place] [address] Type : ADM IN Attending Dr: Pola Anders MD Copies to: MD Tirso Chew MD~ HPI DATE OF EXAMINATION: 01/20/22 CHIEF COMPLAINT: chest pain HISTORY OF PRESENT ILLNESS: Patient is a 66-year-old gentleman past medical history of diabetes diet- controlled, hyperlipidemia, BPH, reformed smoker was recommended to go to [place] ED after he was found to have [...] atrial flutter and was recommended togo to [place] ED. EKG done there showed changes suspicious [...] negative unless noted below or in HPI [facility] Medical History (Updated 01/20/22 @ 02:46 by [...] mg-vit E 90 mg-zinc 40 mg-copper 1 nj-zehpgb-ivmdhn capsule (PreserVision AREDS-2) 1 tab PO BID [...] and is hemodynamically stable Labs reviewed from [place] ED which are essentially normal including TSH and Troponin Obtain lipid panel, A1c, echo Consult cardiology Ordered routine labs Telemetry Fall precautions CIWA protocol Resume heparin drip that has been started at [place] ED DVT prophylaxis CODE STATUS full code. Documented By: Pola Anders MD 01/20/22 0238 Signed By: <Electronically signed by Pola Anders MD> 01/20/22 0626 [facility] Work Phone: Discharge summary Author Marcus Recinos [facility] March 27, 2022 9:20am Note Date/Time March 27, 2022 9:20a m [facility] [address] [place] [address] Discharge Summary Signed Patient: Remedios Magaña MR#: [id number] : 1955 Acct:[id number] Age/Sex: 66 / M Adm Date: 2 Loc: Room: Attending Dr: Marcus Recinos MD Copies to: MD Marcus Sommer MD, [facility]~ Providers Date of Discharge: 03/27/22 Discharging Provider: [...] RF: 0 Documented By: Marcus Recinos MD, [facility] 919 Signed By: <Electronically signed by [facility] Marcus Recinos> 03/27/22 09 [facility] Work Phone: Evaluation + Plan note No data available for this section [facility] Diagnosis Onset Date Resolution Status Atrial flutter acute Cardiomyopathy acute Chronic alcohol use acute Diabetes mellitus acute Hyperlipidemia acute [facility] Work Phone: Evaluation noteNo assessment information available [facility] Work Phone: Evaluation noteNo InformationNort [employer] Other Evaluation note* Diagnosis Atrial flutter, unspecified type (CMS/HCC)- Primary Benign essential hypertension Essential hypertension, benign High risk medication use Hyperlipidemia, unspecified hyperlipidemia type Pulmonary emphysema, unspecified emphysema type (CMS/HCC) Coronary artery disease involving twenty-nine palms coronary artery of twenty-nine palms heart without angina pectoris Obesity, Class I, BMI 30-34.9 documented in this encounter [facility] Work Phone: [facility] Work Phone: [facility] instructions[facility] Work Phone: Hospital Discharge instructions[facility] Work Phone: Progress note No data available for this section [facility] Chief Complaint and Reason for [...] Recorded Date/ Time Advance Directives No January 20, 12:25am Chief Complaint * REMEDIOS MAGAÑA is [...] Recinos MD for review.Amiodarone Order sent to [facility] for testing due in MARCH* S/P CARDIOVERSION. [...] in the past Amiodarone Order sent to [facility] for testing due in JulyAmiodarone order sent to [facility] October 2022* REMEDIOS MAGAÑA is being [...] more aggressive diet. Amiodarone order sent to [facility] for January 2023* Patient in the office [...] test done please contact our office at [phone] and press option #4 so that we may assist you in the problems. * Thank you for your compliance with this testing. * The Staff * [facility] * Please have done July 2023 Family [...] Referral Specialty Diagnoses / Procedures Referred By Mateo danielle Referred To Contact Diagnoses Atrial flutter, unspecified type (CMS/HCC) Procedures ECG 12 Lead Marcus Recinos MD [address] [facility] 2, [place] [address] [place] [id number] Referral ID Status Reason Start Date Expiration Date V isits Requested Visits Authorized [id number] Authorized 12/04/2023 12/03/2024 1 1 Specialty Diagnoses / Procedures Referred By Mateo danielle Referred To Contact Cardiology Diagnoses Benign essential hypertension Atrial flutter, unspecified type (CMS/HCC) Procedures Follow Up In Cardiology Marcus Recinos MD [address] [facility] 2, [place] [place] [address] Marcus Recinos MD [address] [facility] 2, [facility] [address] [place] [address] Referral ID Status Reason Start Date Expiration Date V isits Requested Visits Authorized [id number] Authorized 12/04/2023 12/03/2024 1 1 Additional Source [...] MD Attending Provider, Referring Prov ider Active Pack Worker Relationship Specialty Start Date End Date Tirso Frausto MD [address] [place] [address] PCP - General 11/04/99 (unrecognized sect ion and content) No Status Records FoundNo Status Records FoundNo Status Records FoundNo Status Records FoundNo Status Records FoundNo Status Records Found INFORMATION SOURCE (unrecogn ized section and content) DATE CREATED AUTHOR 04/25/2022 [facility] DATE CREATED AUTHOR AUTHOR'S ORGANIZ ATION 02/10/2023 [facility] DATE CREATED AUTHOR AUTHOR'S ORGANIZ ATION 03/15/2023 [facility] DATE CREATED AUTHOR AUTHOR'S ORGANIZ ATION 04/12/2023 [facility] DATE CREATED AUTHOR AUTHOR'S ORGANIZ ATION 02/20/[address] [facility] DATE CREATED AUTHOR AUTHOR'S ORGANIZ ATION 06/05/2024 [facility] Ambulatory Goals (unrecognized section and content) Goals may be documented in a n alternate section REASON FOR VISIT (unrecogniz ed section and content) Reason Comments Follow-up 6 months Specialty Diagnoses / Procedures Referred By Contac t Referred To Contact Diagnoses Atrial flutter, unspecified type ([facility]) Procedures ECG 12 Lead Marcus Recinos MD [address] [facility] [address], [address] [address] Referral ID Status Reason Start Date Expiration Date V isits Requested Visits Authorized [id number] Authorized 12/04/2023 12/03/2024 1 1 FOR RECORDS [...] BE BASED ON THE PRIMARY CLINICAL RECORDS. [employer] [facility]. provides no warranty or guarantee of the accuracy or completeness of information in this document.
[2024-07-28 10:32] LABS: Alanine Aminotransferase 167 U/L (16-63); BUN Creatinine Ratio 14.9; Calcium 9.1 mg/dL (8.5-10.1); Carbon Dioxide 30.5 mmol/L (21.0-32.0); Chloride 102 mmol/L (98-107); Estimated GFR (African America >60 (>=60); Estimated GFR (Non-African Ame >60 (>=60); Glucose 127 mg/dL (74-106); Potassium 4.5 mmol/L (3.5-5.1); Sodium 137 mmol/L (136-145)
== END 2024-07-28 09:28 | disposition home or self-care (01) ==
LOC: LAB 09:27
PROVIDERS: PCP Family Medicine; Visit Provider Internal Medicine Cardiovascular Disease
DX: E11.65 Type 2 diabetes mellitus with hyperglycemia (principal); E78.5 Hyperlipidemia, unspecified; I48.92 Unspecified atrial flutter; Z79.899 Other long term (current) drug therapy
CPT/HCPCS: 36415; 80048; 83036; 84443; 84460

== ENCOUNTER 2024-07-28 10:01 | Outpatient (OUT) | payer MEDICARE, SELFPAY ==
--- OUTSIDE RECORDS SUMMARY | 2024-07-28 10:25 | XMS_ITS | CCD ---
Author Organization [facility] Care Team Providers Care Rn Nicu Name Role Phone MD Tirso Frausto Primary Care Provider [phone] MD Pola Andesr Admit Provider MD Jin Berkowitz Attending Provider [phone] MD Ama Morrison Attending Provider Tirso Frausto Unavailable Unavailable Unavailable MD Marcus Recinos Attending Provider MD Marcus Recinos Referring Provider Tirso Frausto Primary Care Physician [phone] Unavailable Unavailable MD Tirso Frausto Primary Care Provider [phone] Jina Rios Unavailable Carlos A Salazar Unavailable Victoria Mjuica Unavailable Olga Phipps Unavailable Dr. Tirso Frausto [...] sources) Ciprofloxacin; Translations: [Ciprofloxacin] Drug Allergy 03-27-2022 [facility] (14 sources) Ciprofloxacin; Translations: [Cipro XR] Drug Allergy [facility] Work Phone: (1 source) Ciprofloxacin Drug Allergy 04-19-2015 [facility] (2 sources) Ciprofloxacin; Translations: [CIPROFLOXACIN (MIXTURE)] Drug Allergy 10-14-2023 [facility] Work Phone: Medications Current Medications Medication Drug [...] ascorbic acid 226 mg / beta carotene 23997 unt / cuprous oxide 0.8 mg / dl-alpha tocopheryl acetate 200 unt / zinc oxide 34.8 mg oral capsule (2 sources) Vitamin C Start: 04-16-2022 take 1 capsule by mouth once daily PreserVision AREDS oral capsule 1 cap, Oral, Daily, Prophylaxis Start Date: 04/16/22 Status: Ordered take 1 tablet by kyle th every twelve hours vitamins A,C,M-ipva-djklcw (PreserVision AREDS) 2,148 mcg-113 mg-45 mg-17.4mg tablet [...] PO Daily January 20, 2022 12:00am Vit C,Q-Jq-Zcyle-Lutein- Zeaxan (Preservision Areds-2) 250-90-40-1 mg Capsule (6 sources) Start: 01-20-2022 Vit C,N-Aw-Qgeoe-Lut ein-Zeaxan (Preservision Areds-2) 250-90-40-1 mg Capsule Active 1 TAB PO Twice daily January 20, 2022 2:13am Start: 01-20-2022 Vit C,E-Zn-Dragger ts-Grdhkw-Bvdvzq (Preservision Areds-2) 250-90-40-1 mg Capsule Active 1 TAB PO Twice daily January 20, 2022 12:00am Completed/Discontinued Medications Medication Drug Class(es) Dates Sig (Normalized) Sig (Original) [id number] 200 actuat albuterol 0.09 mg/actuat metered dose [...] 1 tablet daily - being referred to [facility] to manage Quantity: 30 Refills: [...] Coronary arteriosclerosis; Translations: [Atherosclerotic heart disease of [place] coronary artery without angina pectoris] 12-04-2023 Chronic [...] sources) Taking high risk medication; Translations: [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 therapy] Onset: 10-14-2023 12-04-2023 Episodic [...] 01-01-2023 Episodic Other aftercare (7 sources) 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 therapy; Translations: [OTH SENIOR LIVING CURRENT DRUG THERAPY] Onset: 10-22-2022 Episodic Other [...] Range Facility Physician Referralon 024 Physician Referral [phone] [id number] Normal [facility] ECG 12 Leadon 12-04-2023 ECG revealed normal sinus rhythm with first-degree AV block and left axis deviation [facility] Work Phone: GLYCOHEMOGLOBIN A1Con 2022 ADA RECOMMENDATION SEE BELOW Normal [facility] Comment on above: Result Comment: ADA RECOMMENDED LIMIT 4.0 - 6.0 ADA THERAPEUTIC TARGET < 7.0 ACTION SUGGESTED > 7.0 Performed By: #### A 1C #### [facility] [address] [place] [address] Dr. Igor Hayes Glucose [Mass/Vol] 137 mg/dL Normal [facility] Comment on above: Performed By: #### A 1C #### [facility] [address] [address] [address] Igor Hayes HbA1c (Bld) [Mass fraction] 6.4 % Critically high 4.5-6.2 [facility] Comment on above: Performed By: #### A 1C #### [facility] [address] [address] [address] Igor Hayes LIPID PROFILEon 03-08-2023 CHOL-HDL RATIO NORM SEE BELOW Normal [facility] Comment on above: Result Comment: 3.3 - 4.4 LOW RISK 4.4 - 7.1 AVERAGE RISK 7.1 - 11.0 MODERATE RISK >11.0 HIGH RISK Performed By: #### A 1C #### [facility] [address] [place] [address] Dr. Igor Hayes Cholesterol [Mass/Vol] 181 mg/dL Normal <=200 [facility] Comment on above: Performed By: #### A 1C #### [facility] [address] [address] [address] Igor Hayes Cholesterol in HDL [Mass/Vol] 64 mg/dL Critically high 40-60 [facility] Comment on above: Performed By: #### A 1C #### [facility] [address] [address] [address] Igor Hayes Cholesterol in LDL [Mass/Vol] 99.2 mg/dL Normal [facility] Comment on above: Performed By: #### A 1C #### [facility] [address] [address] [address] Igor Hayes Cholesterol.total/Ch olesterol in HDL [Mass ratio] 2.8 {ratio} Normal [facility] Comment on above: Performed By: #### A 1C #### [facility] [address] [address] [address] Igor Hayes HDL NORMAL > or = 60 mg/dl - LO W CARDIOVASCULAR RISK <40 mg/dl - HIGH CARDIOVASCULAR RISK Normal [facility] Comment on above: Performed By: #### A 1C #### [facility] [address] [address] [address] Igor Hayes LDL CALC NORMAL SEE BELOW Normal [facility] Comment on above: Result Comment: <100 mg/dl OPTIMAL 100 - 129 mg/dl NEAR OR ABOVE OPTIMAL 130 - 159 mg/dl BORDERLINE HIGH 160 - 189 mg/dl HIGH >190 mg/dl VERY HIGH Performed By: #### A 1C #### [facility] [address] [address] [address] Igor Hayes Triglyceride [Mass/Vol] 89 mg/dL Normal <=150 [facility] Comment on above: Performed By: #### A 1C #### [facility] [address] [address] [address] Igor Hayes VLDL CALC 17.8 mg/dL Normal [facility] Comment on above: Performed By: #### A 1C #### [facility] [address] [address] [address] Igor Hayes INFLUENZA A AND B AGon 02-01 INFLUANEGH SEE BELOW Normal [facility] Comment on above: Result Comment: Nega tive for Flu A protein angiten. Infection due to Flu A cannot be ruled out. Flu A angiten in the sample may be below the detection limit of the test. Performed By: #### O BSCRN #### [facility] [address] [place] [address] Dr. Igor Hayes INFLUBNEGH SEE BELOW Normal [facility] Comment on above: Result Comment: Nega tive for Flu B protein antigen. Infection due to Flu B cannot be ruled out. Flu B antigen in the sample may be below the detection limit of the test. Performed By: #### O BSCRN #### [facility] [address] [place] [address] Dr. Igor Hayes INFLUENZA A AG Negative Normal NEGATIVE SEE COMMENT [facility] Comment on above: Performed By: #### O BSCRN #### [facility] [address] [place] [address] Dr. Igor Hayes INFLUENZA B AG Negative Normal NEGATIVE SEE COMMENT [facility] Comment on above: Performed By: #### O BSCRN #### [facility] [address] [place] [address] Dr. Igor Hayes SYMPTOMATIC COVID-19 ANTIGEN on [...] sooner. Performed By: #### A 1C #### [facility] [address] [place] [address] Dr. Igor Hayes SARS-CoV-2 (COVID-19) RNA VERONIQUE+probe Ql (Unsp spec) Positive Abnormal NEGATIVE [facility] Comment on above: Performed By: #### A 1C #### [facility] [address] [place] [address] Dr. Igor Hayes HEMOGLOBINon 01-10-2023 Hemoglobin (Bld) [Mass/Vol] 14.4 g/dL Normal 14.0-18.0 [facility] Comment on above: Performed By: #### H GB #### [facility] [address] [place] [address] Dr. Igor Hayes PROF CHEM 8 (BAS METB)on Anion gap [Moles/Vol] 8.4 mmol/L Normal [facility] Comment on above: Performed By: #### O BSCRN #### [facility] [address] [place] [address] Dr. Igor Hayes Calcium [Mass/Vol] 8.9 mg/dL Normal 8.5-10.1 [facility] Comment on above: Performed By: #### O BSCRN #### [facility] [address] [place] [address] Dr. Igor Hayes Chloride [Moles/Vol] 103 mmol/L Normal 98-107 [facility] Comment on above: Performed By: #### O BSCRN #### [facility] [address] [place] [address] Dr. Igor Hayes CO2 [Moles/Vol] 31.2 mmol/L Normal 21.0-32.0 [facility] Comment on above: Performed By: #### O BSCRN #### [facility] [address] [place] [address] Dr. Igor Hayes Creatinine [Mass/Vol] 1.02 mg/dL Normal 0.70-1.30 [facility] Comment on above: Performed By: #### O BSCRN #### [facility] [address] [place] [address] Dr. Igor Hayes EGFR-AF BURUNDIAN >60 Normal >=60 [facility] Comment on above: Performed By: #### O BSCRN #### [facility] [address] [address] [address] Igor Hayes EGFR-NON AF BURUNDIAN >60 Normal >=60 [facility] Comment on above: Performed By: #### O BSCRN #### [facility] [address] [address] [address] Igor Hayes Glucose [Mass/Vol] 133 mg/dL Critically high 74-106 [facility] Comment on above: Performed By: #### O BSCRN #### [facility] [address] [address] [address] Igor Hayes Potassium [Moles/Vol] 4.6 mmol/L Normal 3.5-5.1 [facility] Comment on above: Performed By: #### O BSCRN #### [facility] [address] [address] [address] Igor Hayes Sodium [Moles/Vol] 138 mmol/L Normal 136-145 [facility] Comment on above: Performed By: #### O BSCRN #### [facility] [address] [address] [address] Igor Hayes Urea nitrogen [Mass/Vol] 17.0 mg/dL Normal 7.0-18.0 [facility] Comment on above: Performed By: #### O BSCRN #### [facility] [address] [address] [address] Igor Hayes Urea nitrogen/Creatinine [Mass ratio] 16.7 mg/mg Normal [facility] Comment on above: Performed By: #### O BSCRN #### [facility] [address] [address] [address] Igor Hayes SGOTon 01-10-2023 AST [Catalytic activity/Vol] 36 U/L Normal 15-37 [facility] Comment on above: Performed By: #### O BSCRN #### [facility] [address] [address] [address] Igor Hayes TSHon 01-10-2023 TSH 4.230 uIU/mL Critically high 0.358-3.74 0 [facility] Comment on above: Performed By: #### O BSCRN #### [facility] [address] [address] [address] Igor Hayes XR CHEST 2 Von [...] by: DEE BARTON Date: 2023-01-10 13:02 Normal [facility] Prothrombin Time INRon 01-01 INR Coag (PPP) [Relative time] 2.9 {INR} [facility] Other Prothrombin Time INR [facility] [employer] Other Prothrombin Time INRon 12-10 INR Coag (PPP) [Relative time] 2.7 {INR} [facility] Other Prothrombin Time INR [facility] [employer] Other Prothrombin Time INRon 11-26 INR Coag (PPP) [Relative time] 2.6 {INR} [facility] Other Prothrombin Time INR [facility] [employer] Other Prothrombin Time INRon 11-15 INR Coag (PPP) [Relative time] 3.2 {INR} [facility] Other Prothrombin Time INR [employer] Other LIPID PROFILEon 11-14-2022 CHOL-HDL RATIO NORM SEE BELOW Normal [facility] Comment on above: Result Comment: 3.3 - 4.4 LOW RISK 4.4 - 7.1 AVERAGE RISK 7.1 - 11.0 MODERATE RISK >11.0 HIGH RISK Performed By: #### O BSCRN #### [facility] [address] [address] [address] Igor Hayes Cholesterol [Mass/Vol] 186 mg/dL Normal <=200 [facility] Comment on above: Performed By: #### O BSCRN #### [facility] [address] [address] [address] Igor Hayes Cholesterol in HDL [Mass/Vol] 64 mg/dL Critically high 40-60 [facility] Comment on above: Performed By: #### O BSCRN #### [facility] [address] [address] [address] Igor Hayes Cholesterol in LDL [Mass/Vol] 99.0 mg/dL Normal [facility] Comment on above: Performed By: #### O BSCRN #### [facility] [address] [address] [address] Igor Hayes Cholesterol.total/Ch olesterol in HDL [Mass ratio] 2.9 {ratio} Normal [facility] Comment on above: Performed By: #### O BSCRN #### [facility] [address] [address] [address] Igor Hayes HDL NORMAL > or = 60 mg/dl - LO W CARDIOVASCULAR RISK <40 mg/dl - HIGH CARDIOVASCULAR RISK Normal [facility] Comment on above: Performed By: #### O BSCRN #### [facility] [address] [address] [address] Igor Hayes LDL CALC NORMAL SEE BELOW Normal [facility] Comment on above: Result Comment: <100 mg/dl OPTIMAL 100 - 129 mg/dl NEAR OR ABOVE OPTIMAL 130 - 159 mg/dl BORDERLINE HIGH 160 - 189 mg/dl HIGH >190 mg/dl VERY HIGH Performed By: #### O BSCRN #### [facility] [address] [address] [address] Igor Hayes Triglyceride [Mass/Vol] 115 mg/dL Normal <=150 [facility] Comment on above: Performed By: #### O BSCRN #### [facility] [address] [address] [address] Igor Hayes VLDL CALC 23.0 mg/dL Normal [facility] Comment on above: Performed By: #### O BSCRN #### [facility] [address] [place] [address] Dr. Igor Hayes Tobacco Screening.on 023 Adult depression screening assessment No [facility] 250 DO Work Phone: Fall risk assessment a) No falls within the last year [facility] 250 DO Work Phone: Tobacco use status [facility] b) No [facility] 250 DO Work Phone: AMMONIAon 11-02-2022 Ammonia (P) [Moles/Vol] 12 umol/L Normal 11-32 [facility] Comment on above: Performed By: #### A 1C #### [facility] [address] [place] [address] Dr. Igor Hayes PROF 14(COMP METB)on 022 Albumin [Mass/Vol] 3.9 g/dL Normal 3.4-5.0 [facility] Comment on above: Performed By: #### A 1C #### [facility] [address] [place] [address] Dr. Igor Hayes Albumin/Globulin [Mass ratio] 1.1 {ratio} Normal [facility] Comment on above: Performed By: #### A 1C #### [facility] [address] [place] [address] Dr. Igor Hayes ALP [Catalytic activity/Vol] 48 U/L Normal 46-116 [facility] Comment on above: Performed By: #### A 1C #### [facility] [address] [place] [address] Dr. Igor Hayes ALT [Catalytic activity/Vol] 70 U/L Critically high 16-63 [facility] Comment on above: Performed By: #### A 1C #### [facility] [address] [place] [address] Dr. Igor Hayes Anion gap [Moles/Vol] 13.5 mmol/L Normal [facility] Comment on above: Performed By: #### A 1C #### [facility] [address] [address] [address] Igor Hayes AST [Catalytic activity/Vol] 41 U/L Critically high 15-37 [facility] Comment on above: Performed By: #### A 1C #### [facility] [address] [place] [address] Dr. Igor Hayes Bilirubin [Mass/Vol] 0.6 mg/dL Normal 0.2-1.0 [facility] Comment on above: Performed By: #### A 1C #### [facility] [address] [place] [address] Dr. Igor Hayes Calcium [Mass/Vol] 9.0 mg/dL Normal 8.5-10.1 [facility] Comment on above: Performed By: #### A 1C #### [facility] [address] [place] [address] Dr. Igor Hayes Chloride [Moles/Vol] 102 mmol/L Normal 98-107 [facility] Comment on above: Performed By: #### A 1C #### [facility] [address] [place] [address] Dr. Igor Hayes CO2 [Moles/Vol] 28.9 mmol/L Normal 21.0-32.0 [facility] Comment on above: Performed By: #### A 1C #### [facility] [address] [place] [address] Dr. Igor Hayes Creatinine [Mass/Vol] 1.14 mg/dL Normal 0.70-1.30 [facility] Comment on above: Performed By: #### A 1C #### [facility] [address] [place] [address] Dr. Igor Hayes EGFR-AF BURUNDIAN >60 Normal >=60 [facility] Comment on above: Performed By: #### A 1C #### [facility] [address] [place] [address] Dr. Igor Hayes EGFR-NON AF [place] >60 Normal >=60 [facility] Comment on above: Performed By: #### A 1C #### [facility] [address] [place] [address] Dr. Igor Hayes Globulin (S) [Mass/Vol] 3.7 g/dL Normal [facility] Comment on above: Performed By: #### A 1C #### [facility] [address] [place] [address] Dr. Igor Hayes Glucose [Mass/Vol] 166 mg/dL Critically high 74-106 [facility] Comment on above: Performed By: #### A 1C #### [facility] [address] [address] [address] Igor Hayes Potassium [Moles/Vol] 4.4 mmol/L Normal 3.5-5.1 [facility] Comment on above: Performed By: #### A 1C #### [facility] [address] [place] [address] Dr. Igor Hayes Protein [Mass/Vol] 7.6 g/dL Normal 6.4-8.2 [facility] Comment on above: Performed By: #### A 1C #### [facility] [address] [place] [address] Dr. Igor Hayes Sodium [Moles/Vol] 140 mmol/L Normal 136-145 [facility] Comment on above: Performed By: #### A 1C #### [facility] [address] [place] [address] Dr. Igor Hayes Urea nitrogen [Mass/Vol] 18.0 mg/dL Normal 7.0-18.0 [facility] Comment on above: Performed By: #### A 1C #### [facility] [address] [place] [address] Dr. Igor Hayes Urea nitrogen/Creatinine [Mass ratio] 15.8 mg/mg Normal [facility] Comment on above: Performed By: #### A 1C #### [facility] [address] [place] [address] Dr. Igor Hayes HEMOGLOBINon 10-22-2022 Hemoglobin (Bld) [Mass/Vol] 15.3 g/dL Normal 14.0-18.0 [facility] Comment on above: Performed By: #### A 1C #### [facility] [address] [place] [address] Dr. Igor Hayes PROF CHEM 8 (BAS METB)on Anion gap [Moles/Vol] 12.9 mmol/L Normal [facility] Comment on above: Performed By: #### A ST, BMP, TSH #### [facility] [address] [address] [address] Igor Hayes Calcium [Mass/Vol] 9.2 mg/dL Normal 8.5-10.1 [facility] Comment on above: Performed By: #### A ST, BMP, TSH #### [facility] [address] [address] [address] Igor Hayes Chloride [Moles/Vol] 103 mmol/L Normal 98-107 [facility] Comment on above: Performed By: #### A ST BMP, TSH #### [facility] [address] [place] [address] Dr. Igor Hayes CO2 [Moles/Vol] 29.7 mmol/L Normal 21.0-32.0 [facility] Comment on above: Performed By: #### A ST BMP, TSH #### [facility] [address] [place] [address] Dr. Igor Hayes Creatinine [Mass/Vol] 1.16 mg/dL Normal 0.70-1.30 [facility] Comment on above: Performed By: #### A ST BMP, TSH #### [facility] [address] [place] [address] Dr. Igor Hayes EGFR-AF BUR[place]DIAN >60 Normal >=60 [facility] Comment on above: Performed By: #### A ST BMP, TSH #### [facility] [address] [place] [address] Dr. Igor Hayes EGFR-NON AF B[place] >60 Normal >=60 [facility] Comment on above: Performed By: #### A ST, BMP, TSH #### [facility] [address] [place] [address] Dr. Igor Hayes Glucose [Mass/Vol] 125 mg/dL Critically high 74-106 [facility] Comment on above: Performed By: #### A ST, BMP, TSH #### [facility] [address] [address] [address] Igor Hayes Potassium [Moles/Vol] 4.6 mmol/L Normal 3.5-5.1 [facility] Comment on above: Performed By: #### A ST, BMP, TSH #### [facility] [address] [address] [address] Igor Hayes Sodium [Moles/Vol] 141 mmol/L Normal 136-145 [facility] Comment on above: Performed By: #### A ST, BMP, TSH #### [facility] [address] [address] [address] Igor Hayes Urea nitrogen [Mass/Vol] 17.0 mg/dL Normal 7.0-18.0 [facility] Comment on above: Performed By: #### A ST, BMP, TSH #### [facility] [address] [place] [address] Dr. Iogr Hayes Urea nitrogen/Creatinine [Mass ratio] 14.7 mg/mg Normal [facility] Comment on above: Performed By: #### A ST, BMP, TSH #### [facility] [address] [place] [address] Dr. Igor Hayes SGOTon 10-22-2022 AST [Catalytic activity/Vol] 49 U/L Critically high 15-37 [facility] Comment on above: Performed By: #### A ST, BMP, TSH #### [facility] [address] [place] [address] Dr. Igor Hayes TSHon 10-22-2022 TSH 4.171 uIU/mL Critically high 0.358-3.74 0 [facility] Comment on above: Performed By: #### A ST, BMP, TSH #### [facility] [address] [place] [address] Dr. Igor Hayes US SINGLE QUAD RT [...] STANFORD MORTENSEN Date: 2022-10-22 20:43 Normal [facility] XR CHEST 2 Von 10-22-2022 XR CHEST [...] STANFORD MORTENSEN Date: 2022-10-22 20:38 Normal [facility] INSULINon 10-10-2022 Insulin 19.8 uIU/mL Normal 2.6-24.9 [facility] Comment on above: Performed By: #### A 1C #### [facility] [address] [place] [address] Dr. Igor Hayes CBC AUTO DIFFon 10-09-2022 BASO # 0.1 103/ul Normal 0.0-0.1 [facility] Comment on above: Performed By: #### A 1C #### [facility] [address] [place] [address] Dr. Igor Hayes Basophils/100 WBC (Bld) 1.7 % Normal 0.2-2.0 [facility] Comment on above: Performed By: #### A 1C #### [facility] [address] [place] [address] Dr. Igor Hayes EO # 0.2 103/ul Normal 0.0-0.7 [facility] Comment on above: Performed By: #### A 1C #### [facility] [address] [place] [address] Dr. Igor Hayes Eosinophils/100 WBC (Bld) 3.1 % Normal 0.9-7.0 [facility] Comment on above: Performed By: #### A 1C #### [facility] [address] [place] [address] Dr. Igor Hayes Erythrocyte distribution width (RBC) [Ratio] 12.9 % Normal 11.0-15.0 [facility] Comment on above: Performed By: #### A 1C #### [facility] [address] [place] [address] Dr. Igor Hayes Hematocrit (Bld) [Volume fraction] 45.5 % Normal 42.0-54.0 [facility] Comment on above: Performed By: #### A 1C #### [facility] [facility] [address] [place] [address] Dr. Igor Hayes Hemoglobin (Bld) [Mass/Vol] 15.1 g/dL Normal 14.0-18.0 [facility] Comment on above: Performed By: #### A 1C #### [facility] [address] [place] [address] Dr. Igor Hayes IG # 0.01 10e3/ul Normal 0.00-0.03 [facility] Comment on above: Performed By: #### A 1C #### [facility] [address] [place] [address] Dr. Igor Hayes IG % 0.2 % Normal 0.0-0.5 [facility] Comment on above: Performed By: #### A 1C #### [facility] [address] [place] [address] Dr. Igor Hayes LYMPH # 1.2 103/ul Normal 1.2-3.8 [facility] [place] Comment on above: Performed By: #### A 1C #### [facility] [place] [facility] [address] [place] [address] Dr. Igor Hayes Lymphocytes/100 WBC (Bld) 23.9 % Normal 20.5-60.0 [facility] Comment on above: Performed By: #### A 1C #### [facility] [place] [facility] [address] [place] [address] Dr. Igor Hayes MANUAL DIFF REQ NO Normal [facility] Comment on above: Performed By: #### A 1C #### [facility] [place] [facility] [address] [place] [address] Dr. Igor Hayes MCH (RBC) [Entitic mass] 29.3 pg Normal 25.9-34.0 [facility] Comment on above: Performed By: #### A 1C #### [facility] [address] [place] [address] Dr. Igor Hayes MCHC (RBC) [Mass/Vol] 33.2 g/dL Normal 29.9-35.2 [facility] Comment on above: Performed By: #### A 1C #### [facility] [place] [facility] [address] [place] [address] Dr. Igor Hayes MCV (RBC) [Entitic vol] 88.2 fL Normal 80.0-94.0 [facility] Comment on above: Performed By: #### A 1C #### [facility] [place] [facility] [address] [place] [address] Dr. Igor Hayes MONO # 0.6 103/ul Normal 0.3-0.8 [facility] Comment on above: Performed By: #### A 1C #### [facility] [place] [facility] [address] [place] [address] Dr. Igor Hayes Monocytes/100 WBC (Bld) 12.3 % Critically high 1.7-12.0 [facility] Comment on above: Performed By: #### A 1C #### [facility] [place] [facility] [address] [place] [address] Dr. Igor Hayes NEUT # 3.1 103/ul Normal 1.4-6.5 [facility] [place] Comment on above: Performed By: #### A 1C #### [facility] [place] [facility] [address] [place] [address] Dr. Igor Hayes Neutrophils/100 WBC (Bld) 58.8 % Normal 43.0-75.0 [facility] Comment on above: Performed By: #### A 1C #### [facility] [place] [facility] [address] [place] [address] Dr. Igor Hayes Platelet mean volume (Bld) [Entitic vol] 10.0 fL Normal 9.5-13.5 [facility] Comment on above: Performed By: #### A 1C #### [facility] [place] [facility] [address] [place] [address] Dr. Igor Hayes PLT 234 103/ul Normal 150-450 [facility] Comment on above: Performed By: #### A 1C #### [facility] [place] [facility] [address] [place] [address] Dr. Igor Hayes RBC 5.16 106/ul Normal 4.70-6.10 [facility] Comment on above: Performed By: #### A 1C #### [facility] [place] [facility] [address] [place] [address] Dr. Igor Hayes WBC 5.2 103/ul Normal 4.0-11.0 [facility] Comment on above: Performed By: #### A 1C #### [facility] [place] [facility] [address] [place] [address] Dr. Igor Hayes GLYCOHEMOGLOBIN A1Con 2021 ADA RECOMMENDATION SEE BELOW Normal [facility] Comment on above: Result Comment: ADA RECOMMENDED LIMIT 4.0 - 6.0 ADA THERAPEUTIC TARGET < 7.0 ACTION SUGGESTED > 7.0 Performed By: #### A 1C #### [facility] [address] [place] [address] Dr. Igor Hayes Glucose [Mass/Vol] 123 mg/dL Normal [facility] Comment on above: Performed By: #### A 1C #### [facility] [address] [place] [address] Dr. Igor Hayes HbA1c (Bld) [Mass fraction] 5.9 % Normal 4.5-6.2 [facility] Comment on above: Performed By: #### A 1C #### [facility] [place] [facility] [address] [place] [address] Dr. Igor Hayes OCC BLD IMMUNO SCREENon OCCULT BLOOD Negative Normal NEGATIVE [facility] Comment on above: Performed By: #### O BSCRN #### [facility] [place] [facility] [address] [place] [address] Dr. Igor Hayes PROF 14(COMP METB)on 022 Albumin [Mass/Vol] 3.9 g/dL Normal 3.4-5.0 [facility] Comment on above: Performed By: #### U THUY, CMP #### [facility] [place] [facility] [address] [address] [address] Igor Hayes Albumin/Globulin [Mass ratio] 1.0 {ratio} Normal [facility] Comment on above: Performed By: #### U THUY, CMP #### [facility] [place] [facility] [address] [address] [address] Igor Hayes ALP [Catalytic activity/Vol] 45 U/L Critically low 46-116 [facility] Comment on above: Performed By: #### U THUY, CMP #### [facility] [place] [facility] [address] [address] [address] Igor Hayes ALT [Catalytic activity/Vol] 83 U/L Critically high 16-63 [facility] Comment on above: Performed By: #### U THUY, CMP #### [facility] [place] [facility] [address] [address] [address] Igor Hayes Anion gap [Moles/Vol] 11.6 mmol/L Normal [facility] Comment on above: Performed By: #### U THUY, CMP #### [facility] [place] [facility] [address] [address] [address] Igor Hayes AST [Catalytic activity/Vol] 44 U/L Critically high 15-37 [facility] Comment on above: Performed By: #### U THUY, CMP #### [facility] [address] [address] [address] Igor Hayes Bilirubin [Mass/Vol] 0.7 mg/dL Normal 0.2-1.0 [facility] Comment on above: Performed By: #### U THUY, CMP #### [facility] [place] [facility] [address] [address] [address] Igor Hayes Calcium [Mass/Vol] 8.8 mg/dL Normal 8.5-10.1 [facility] Comment on above: Performed By: #### U THUY, CMP #### [facility] [place] [facility] [address] [address] [address] Igor Hayes Chloride [Moles/Vol] 102 mmol/L Normal 98-107 [facility] Comment on above: Performed By: #### U THUY, CMP #### [facility] [address] [address] [address] Igor Hayes CO2 [Moles/Vol] 29.1 mmol/L Normal 21.0-32.0 The [facility] Comment on above: Performed By: #### U THUY, CMP #### [facility] [place] [facility] [address] [address] [address] Igor Hayes Creatinine [Mass/Vol] 1.02 mg/dL Normal 0.70-1.30 [facility] Comment on above: Performed By: #### U THUY, CMP #### [facility] [place] [facility] [address] [place] [address] Dr. Igor Hayes EGFR-AF BURUNDIAN >60 Normal >=60 The [facility] Comment on above: Performed By: #### U THUY, CMP #### [facility] [place] [facility] [address] [place] [address] Dr. Igor Hayes EGFR-NON AF BURUNDIAN >60 Normal >=60 [facility] Comment on above: Performed By: #### U THUY, CMP #### [facility] [place] [facility] [address] [place] [address] Dr. Igor Hayes Globulin (S) [Mass/Vol] 3.9 g/dL Normal [facility] Comment on above: Performed By: #### U THUY, CMP #### [facility] [place] [facility] [address] [address] [address] Igor Hayes Glucose [Mass/Vol] 132 mg/dL Critically high 74-106 [facility] Comment on above: Performed By: #### U THUY, CMP #### [facility] [place] [facility] [address] [address] [address] Igor Hyaes Potassium [Moles/Vol] 4.7 mmol/L Normal 3.5-5.1 [facility] Comment on above: Performed By: #### U THUY, CMP #### [facility] [place] [facility] [address] [place] [address] Dr. Igor Hayes Protein [Mass/Vol] 7.8 g/dL Normal 6.4-8.2 [facility] Comment on above: Performed By: #### U THUY, CMP #### [facility] [place] [facility] [address] [address] [address] Igor Hayes Sodium [Moles/Vol] 138 mmol/L Normal 136-145 [facility] Comment on above: Performed By: #### U THUY, CMP #### [facility] [place] [facility] [address] [address] [address] Igor Hayes Urea nitrogen [Mass/Vol] 16.0 mg/dL Normal 7.0-18.0 [facility] Comment on above: Performed By: #### U THUY, CMP #### [facility] [place] [facility] [address] [address] [address] Igor Hayes Urea nitrogen/Creatinine [Mass ratio] 15.7 mg/mg Normal [facility] Comment on above: Performed By: #### U THUY, CMP #### [facility] [address] [address] [address] Igor Hayes URIC ACID SERUMon 10-09-2022 Urate [Mass/Vol] 4.9 mg/dL Normal 3.5-7.2 [facility] Comment on above: Performed By: #### U THUY, CMP #### [facility] [address] [address] [address] Igor Hayes Aspartate Amino Transferaseo n 07-30-2022 AST [Catalytic activity/Vol] 44 U/L High 10-42 [facility] Comment on above: Order Comment: PT FA STED 12 HRS Performed By: #### T SH3, BMP, AST #### [facility] [address] Basic Metabolic Panelon 07-06 Anion gap [Moles/Vol] 13.1 mmol/L Normal 6.0-15.0 [facility] Comment on above: Order Comment: PT FA STED 12 HRS Performed By: #### T SH3, BMP, AST #### [facility] [address] [place] [address] [place] Calcium [Mass/Vol] 9.4 mg/dL Normal 8.2-10.2 [facility] Comment on above: Order Comment: PT FA STED 12 HRS Performed By: #### T SH3, BMP, AST #### [facility] [address] Chloride [Moles/Vol] 101 mmol/L Normal 95-114 [facility] Comment on above: Order Comment: PT FA STED 12 HRS Performed By: #### T SH3, BMP, AST #### [facility] [address] [place] [address] [place] CO2 [Moles/Vol] 27.5 mmol/L Normal 22.0-30.0 [facility] Comment on above: Order Comment: PT FA STED 12 HRS Performed By: #### T SH3, BMP, AST #### [facility] [address] Creatinine [Mass/Vol] 1.03 mg/dL Normal 0.64-1.27 [facility] Comment on above: Order Comment: PT FA STED 12 HRS Performed By: #### T SH3, BMP, AST #### [facility] [address] Estimated GFR ( Mary > 60 [facility] Comment on above: Order Comment: PT FA STED 12 HRS Result Comment: GFR estimated reference range: According to KDOQI guidelines, <60 ml/min/1.73m2 is sufficient to diagnose a patient with chronic kidney disease. Performed By: #### T SH3, BMP, AST #### [facility] [address] [place] [address] [place] Estimated GFR (Non- Am > 60 [facility] Comment on above: Order Comment: PT FA STED 12 HRS Performed By: #### T SH3, BMP, AST #### [facility] [address] [place] [address] [place] Glucose [Mass/Vol] 111 mg/dL High 70-100 [facility] Comment on above: Order Comment: PT FA STED 12 HRS Result Comment: [place]ucopia om Glucose Reference Range is dependent on time and content of last meal. Glucose of more than 200 mg/dL in a nonstressed, ambulatory subject supports the diagnosis of Diabetes Mellitus. ADA recommended reference range Performed By: #### T SH3, BMP, AST #### [facility] [address] Potassium [Moles/Vol] 4.6 mmol/L Normal 3.5-5.1 [facility] Comment on above: Order Comment: PT FA STED 12 HRS Performed By: #### T SH3, BMP, AST #### [facility] [id number] [facility] Sodium [Moles/Vol] 137 mmol/L Normal 136-146 [facility] Comment on above: Order Comment: PT FA STED 12 HRS Performed By: #### T SH3, BMP, AST #### [facility] [id number] [facility] Urea nitrogen [Mass/Vol] 15 mg/dL Normal 9-23 [facility] Comment on above: Order Comment: PT FA STED 12 HRS Performed By: #### T SH3, BMP, AST #### [facility] [address] No Panel Informationon 07-30 13.1\S\13.1 Normal 6.0-15.0 [facility] DO Work Phone: 9.4\S\9.4 Normal 8.2-10.2 [facility] DO Work Phone: 27.5\S\27.5 Normal 22.0-30.0 [facility] DO Work Phone: 101\S\101 Normal 95-114 [facility] DO Work Phone: 4.6\S\4.6 Normal 3.5-5.1 [facility] DO Work Phone: 137\S\137 Normal 136-146 [facility] DO Work Phone: > 60 [facility] Work Phone: Comment on above: GFR estimated refere nce range: According to KDOQI guidelines, <60 ml/min/1.73m2 is sufficient to diagnose a patient with chronic kidney disease. 1.03\S\1.03 Normal 0.64-1.27 [facility] Work Phone: 15\S\15 Normal 9-23 [facility] Work Phone: 111\S\111 above high threshold 70-100 [facility] Work Phone: Comment on above: Random Glucose Refer ence Range is dependent on time and content of last meal. Glucose of more than 200 mg/dL in a nonstressed, ambulatory subject supports the diagnosis of Diabetes Mellitus. ADA recommended reference range 44\S\44 above high threshold 10-42 [facility] Work Phone: 3.34\S\3.34 Normal 0.45-5.33 [facility] Work Phone: Comment on above: PERFORMED BY:[facility] [place], [place] [phone] MEDICAL DIRECTORSTEVEN NASH M.D. Radiologyon 07-30-2022 XR Chest 2 Views Normal [facility] Work Phone: Thyroid Stimulating Hormoneo 07-30-2022 TSH Qn 3.34 m[IU]/L Normal 0.45-5.33 [facility] Comment on above: Order Comment: PT FA STED 12 HRS Result Comment: PERF ORMED BY: [facility] [address] [place] [address] PATHOLOGIST MOLD SETTER STEVEN NASH M.D. Performed By: #### T SH3, BMP, AST #### [facility] [address] [place] [address] [place] XR chest 2V*on 07-30-2022 XR chest 2V* [facility] [place] [address] [place] [address] XRay Report Signed Patient: Remedios Maagña MR#: [id number] 4 : 1955 Acct:[id number] Age/Sex: 66 / M ADM Date: 07/30/22 Loc: RT Room: Type: [facility] Attending Dr: Marcus Recinos MD Copies to: Marcus Recinos MD, [facility] Ordering Provider: Marcus Recinos MD, [facility] Date of Service: 07/30/22 XR/XR chest 2V*: Z79.899, I48.92 Chest 2 views CLINICAL HISTORY: High risk medication use. COMPARISON: Chest 04/26/2022 FINDINGS: Heart is normal in size. Lungs are clear. No free air. XR/XR chest 2V* IMPRESSION: NO ACUTE CARDIOPULMONARY ABNORMALITY. Impression dictated by: Walt Miller Jr., D.OMariella07/30/2022 1:46 PM Dictation Location: [facility]- Transcribed By: [facility] 07/30/22 1346 Dictated By: Walt Miller Jr, DO 07/30/22 1346 Signed By: 07/30/22 1346 Normal [facility] Aspartate Amino Transferaseo n 04-26-2022 AST [Catalytic activity/Vol] 46 U/L High 10-42 [facility] Comment on above: Performed By: #### T SH3, AST, BMP #### [facility] [address] [place], [place] [id number] [facility] Basic Metabolic Panelon 04-05 Calcium [Mass/Vol] 9.5 mg/dL Normal 8.2-10.2 [facility] Comment on above: Performed By: #### T SH3, AST, BMP #### [facility] [address] [place] [address] Chloride [Moles/Vol] 101 mmol/L Normal 95-114 [facility] Comment on above: Performed By: #### T SH3, AST, BMP #### [facility] [address] [place] [address] [place] CO2 [Moles/Vol] 26.8 mmol/L Normal 22.0-30.0 [facility] Comment on above: Performed By: #### T SH3, AST, BMP #### [facility] [address] [place] [address] [place] Creatinine [Mass/Vol] 1.05 mg/dL Normal 0.64-1.27 [facility] Comment on above: Performed By: #### T SH3, AST, BMP #### [facility] [address] [place] [address] [place] Estimated GFR ( Mary > 60 Normal [facility] Comment on above: Result Comment: GFR estimated reference range: According to KDOQI guidelines, <60 ml/min/1.73m2 is sufficient to diagnose a patient with chronic kidney disease. Performed By: #### T SH3, AST, BMP #### [facility] [address] [place] [address] [place] Estimated GFR (Non- Am > 60 Normal [facility] Comment on above: Performed By: #### T SH3, AST, BMP #### [place] [address] [place] Glucose [Mass/Vol] 123 mg/dL High 70-100 [facility] Comment on above: Result Comment: [place] om Glucose Reference Range is dependent on time and content of last meal. Glucose of more than 200 mg/dL in a nonstressed, ambulatory subject supports the diagnosis of Diabetes Mellitus. ADA recommended reference range Performed By: #### T SH3, AST, BMP #### [facility] [address] [place] [address] [place] Potassium [Moles/Vol] 4.9 mmol/L Normal 3.5-5.1 [facility] Comment on above: Performed By: #### T SH3, AST, BMP #### [facility] [address] [place] [address] [place] Sodium [Moles/Vol] 138 mmol/L Normal 136-146 [facility] Comment on above: Performed By: #### T SH3, AST, BMP #### [facility] [address] [id number] [place] Urea nitrogen [Mass/Vol] 16 mg/dL Normal 07-27 [facility] Comment on above: Performed By: #### T SH3, AST, BMP #### [facility] [address] [id number] [place] Creatinine and Glomerular fi ltration rate.predicted panel (S/P/Bld)Ordered By: Marcus Recinos on 04-26-2022 Creatinine [Mass/Vol] 1.05 mg/dL 0.64-1.27 [facility] Estimated glomerular filtrat ion rate (GFR) non- AmericanOrdered By: Marcus Recinos on 04-26-2022 GFR/1.73 sq M.predicted among non-blacks MDRD (S/P/Bld) [Vol rate/Area] > 60 mL/Min [facility] No Panel InformationOrdered By: Marcus Recinos on 04-26-2022 Estimated GFR () > 60 mL/Min [facility] Comment on above: GFR estimated refere nce range: According to KDOQI guidelines, <60 ml/min/1.73m2 is sufficient to diagnose a patient with chronic kidney disease. Pharmacy Creatinine Clearance (Chem N/A [facility] No Panel Informationon 04-26 9.5\S\9.5 Normal 8.2-10.2 [facility] DO Work Phone: 26.8\S\26.8 Normal 22.0-30.0 [facility] DO Work Phone: [phone] 101\S\101 Normal 95-114 [facility] DO Work Phone: [phone] 4.9\S\4.9 Normal 3.5-5.1 [facility] DO Work Phone: [phone] 138\S\138 Normal 136-146 [facility] DO Work Phone: > [address] [facility] DO Work Phone: Comment on above: GFR estimated refere nce range: According to KDOQI guidelines, <60 ml/min/1.73m2 is sufficient to diagnose a patient with chronic kidney disease. 1.05\S\1.05 Normal 0.64-1.27 [facility] Work Phone: 16\S\16 Normal 9-23 [facility] DO Work Phone: 123\S\123 above high threshold 70-100 [facility] DO Work Phone: Comment on above: Random Glucose Refer ence Range is dependent on time and content of last meal. Glucose of more than 200 mg/dL in a nonstressed, ambulatory subject supports the diagnosis of Diabetes Mellitus. ADA recommended reference range 46\S\46 above high threshold 10-42 [facility] Work Phone: 4.75\S\4.75 Normal 0.45-5.33 [facility] 250 DO Work Phone: Comment on above: PERFORMED BY:[facility] [place], [place] [phone] MEDICAL DIRECTORSTEVEN NASH M.D. Radiologyon 04-26-2022 XR Chest 2 Views Normal [facility] 250 DO Work Phone: Serum or plasma aspartate am inotransferase measurement (enzymatic activity/volume)Ordered By: Marcus Recinos on 04-26-2022 AST [Catalytic activity/Vol] 46 U/L 10-42 [facility] Serum or plasma calcium tiera urement (mass/volume)Ordered By: Marcus Recinos on 04-26-2022 Calcium [Mass/Vol] 9.5 mg/dL 8.2-10.2 [facility] Serum or plasma chloride marly surement (moles/volume)Ordered By: Marcus Recinos on 04-26-2022 Chloride [Moles/Vol] 101 mmol/L 95-114 [facility] Serum or plasma glucose tiera urement (mass/volume)Ordered By: Marcus Recinos on 04-26-2022 Glucose [Mass/Vol] 123 mg/dL 70-100 [facility] Comment on above: ADA recommended refe rence range Random Glucose Reference Range is dependent on time and content of last meal. Glucose of more than 200 mg/dL in a nonstressed, ambulatory subject supports the diagnosis of Diabetes Mellitus. Serum or plasma potassium me asurement (moles/volume)Ordered By: Velazquezliz Valeraim on 04-26-2022 Potassium [Moles/Vol] 4.9 mmol/L 3.5-5.1 [facility] Serum or plasma sodium measu rement (moles/volume)Ordered By: Marcus Pritchardahim on 04-26-2022 Sodium [Moles/Vol] 138 mmol/L 136-146 [facility] Serum or plasma total carbon dioxide measurement (moles/volume)Ordered By: Marcus Pritchardahim on 04-26-2022 CO2 [Moles/Vol] 26.8 mmol/L 22.0-30.0 [facility] Serum or plasma urea nitroge n measurement (mass/volume)Ordered By: Marcus Recinos on 04-26-2022 Urea nitrogen [Mass/Vol] 16 mg/dL 07-27 [facility] TSH DL <= 0.005 mIU/L QnOrde red By: Marcus Recinos on 04-26-2022 TSH Qn 4.75 m[IU]/L 0.45-5.33 [facility] Thyroid Stimulating Hormoneo n 04-26-2022 TSH Qn 4.75 m[IU]/L Normal 0.45-5.33 [facility] Comment on above: Result Comment: PERF ORMED BY: [facility] [address] [place] [address] PATHOLOGIST MOLD SETTER STEVEN NASH M.D. Performed By: #### T SH3, AST, BMP #### [facility] [address] XR chest 2V*on 04-26-2022 XR chest 2V* [facility] [place] [address] [place], [place] [id number] XRay Report Signed Patient: Remedios Magaña MR#: [id number] 4 : 1955 Acct:[id number] Age/Sex: 66 / M ADM Date: 04/26/22 Loc: RT Room: Type: [facility] Attending Dr: Marcus Recinos MD Copies to: Marcus Recinos MD, [facility] Ordering Provider: Marcus Recinos MD, [facility] Date of Service: 04/26/22 XR/XR chest 2V*: I48.92,Z79.899 PA AND LATERAL CHEST: CLINICAL HISTORY: A. Fib. intermediate medication use. COMPARISON: Chest 01/21/2022 FINDINGS: Heart is normal in size. Lungs are clear. No free air. Osseous structures demonstrate degenerative change. XR/XR chest 2V* IMPRESSION: NO ACUTE CARDIOPULMONARY ABNORMALITY. Impression dictated by: Walt Miller Jr., D.OMariella04/26/2022 1:38 PM Dictation Location: [place] [address] Transcribed By: [facility] [facility] 04/26/22 1338 Dictated By: Walt Miller Jr, DO 04/26/22 1337 Signed By: 04/26/22 1338 [facility] Office Visit (Cardiology)on 04-24-2022 Follow-up visit Diagnoses/Problems [...] in adult Healthy Weight Tips; Status:Complete; Done: [id number] SocHx: Former smoker Tobacco Use Screening; Status:Complete; Done: [id number] Unlinked Stop: predniSONE 20 MG Oral Tablet [...] Screening.on 022 Adult depression screening assessment No [facility] 250 DO Work Phone: Fall risk assessment a) [facility] the [facility] Work [facility]: Tobacco use status [facility] b) [facility] Work Phone: No Panel Informationon 03-27 135\S\135 below low threshold 136-146 [facility] 250 DO Work Phone: [phone] 4.7\S\4.7 Normal 3.5-5.1 [facility] 250 DO Work Phone: [phone] 99\S\99 Normal 95-114 [facility] 250 DO Work Phone: [phone] 25.4\S\25.4 Normal 22.0-30.0 [facility] 250 DO Work Phone: Comment on above: PERFORMED BY:[place] [address] [place] [id number] MEDICAL DIRECTORSTEVEN NASH M.D. Serum or plasma chloride marly surement (moles/volume)Ordered By: Marcus Recinos on 03-27-2022 Chloride [Moles/Vol] 99 mmol/L 95-114 [facility] Serum or plasma potassium me asurement (moles/volume)Ordered By: Marcus Recinos on 03-27-2022 Potassium [Moles/Vol] 4.7 mmol/L 3.5-5.1 [facility] Serum or plasma sodium measu rement (moles/volume)Ordered By: Marcus Recinos on 03-27-2022 Sodium [Moles/Vol] 135 mmol/L 136-146 [facility] Serum or plasma total carbon dioxide measurement (moles/volume)Ordered By: Marcus Recinos on 03-27-2022 CO2 [Moles/Vol] 25.4 mmol/L 22.0-30.0 [facility] COVID-19 SOFIAOrdered By: Lincoln Recinos on 03-23-2022 SARS-CoV+SARS-CoV-2 (COVID-19) Ag IA.rapid Ql (Resp) Negative Negative [facility] Comment on above: This is a duplicate Larisa SARS Antigen (TYSON) result to be used for statistical tracking purpose only. Laboratory - Microbiology an d Antimicrobial susceptibilityon 03-23-2022 SARS-CoV-2 (COVID-19) RNA VERONIQUE+probe Ql (Unsp spec) [facility] y 250 DO Work Phone: No Panel InformationOrdered By: Marcus Recinos on 03-23-2022 SARS Antigen (LFIA) [facility] No Panel Informationon 03-23 Negative Normal Negative -[facility] y 250 DO Work Phone: Comment on above: This is a duplicate Larisa SARS Antigen (TYSON) result to be used for statistical tracking purpose only.PERFORMED BY:[facility] [place], [place] [id number] MEDICAL DIRECTORSTEVEN NASH M.D. Covid-19 PCR (CVDTBH)on 03-04 SARS-CoV-2 (COVID-19) RNA VERONIQUE+probe Ql (Unsp spec) Not detected Normal NOT DETECTED [facility] Comment on above: Result Comment: This test is not yet approved or cleared by the [place] FDA. When there are no FDA-approved or cleared tests available, and other criteria are met, FDA can make tests available under an emergency access mechanism called an Emergency Use Authorization (EUA). The EUA for this test is supported by the [place] of Health and Human Service's (HHS's) declaration [...] SARS-CoV-2. Performed By: #### C VDTBH #### [facility] [address] [place] [address] Dr. Igor Hayes INFLUENZA A AND B AGon 03-[facility] Normal [facility] Comment on above: Result Comment: Nega tive for Flu A protein angiten. Infection due to Flu A cannot be ruled out. Flu A angiten in the sample may be below the detection limit of the test. Performed By: #### O BSCRN #### [facility] [address] [place] [address] Dr. [facility] Normal [facility] Comment on above: Result Comment: Nega tive for Flu B protein antigen. Infection due to Flu B cannot be ruled out. Flu B antigen in the sample may be below the detection limit of the test. Performed By: #### O BSCRN #### [facility] [address] [place] [address] Dr. Igor Hayes INFLUENZA A AG Negative Normal NEGATIVE SEE COMMENT [facility] Comment on above: Performed By: #### O BSCRN #### [facility] [address] [place] [address] Dr. Igor Hayes INFLUENZA B AG Negative Normal NEGATIVE SEE COMMENT [facility] Comment on above: Performed By: #### O BSCRN #### [facility] [address] [place] [address] Dr. Igor Hayes INTERNAL CONTROLS Within Normal Limits Normal Wi thin Normal Limits [facility] Comment on above: Performed By: #### O BSCRN #### [facility] [address] [place] [address] Dr. Igor Hayes Office Visit (Cardiology)on 02-13-2022 [...] Weight Tips; Status:Complete - Retrospective Authorization; Done: [id number] Hyperlipidemia Renew: Simvastatin 20 MG Oral Tablet; TAKE 1 TABLET DAILY SocHx: Former smoker Tobacco Use Screening; Status:Complete; Done: [id number] Unspecified atrial flutter Start: Amiodarone HCl - [...] Systems Constitutio (more content not included)... Normal [employer] Tobacco Screening.on 022 Adult depression screening assessment No [facility] y 250 DO Work Phone: Fall risk assessment a) No falls within the last year [facility] 250 DO Work Phone: Tobacco use status CP b) No [facility] 250 DO Work Phone: Glucose Glucometer (BldC) [M ass/Vol]Ordered By: Jin Berkowitz on 01-23-2022 Glucose [Mass/Vol] 155 mg/dL [facility] Comment on above: Random Glucose Refer ence Range is dependent on time and content of last meal. Glucose of more than 200 mg/dL in a nonstressed, ambulatory subject supports the diagnosis of Diabetes Mellitus. Activated partial thrombopla stin time (aPTT) in platelet poor plasma by coagulation aOrdered By: Ama Morrison on 01-22-2022 aPTT Coag (PPP) [Time] 71.1 s 25.1-36.5 [facility] Creatinine and Glomerular fi ltration rate.predicted panel (S/P/Bld)Ordered By: Ama Morrison on 01-22-2022 Creatinine [Mass/Vol] 1.04 mg/dL 0.64-1.27 [facility] Estimated glomerular filtrat ion rate (GFR) non- AmericanOrdered By: Ama Morrison on 01-22-2022 GFR/1.73 sq M.predicted among non-blacks MDRD (S/P/Bld) [Vol rate/Area] > 60 mL/Min [facility] No Panel InformationOrdered By: Jin Berkowitz on 01-22-2022 Bedside Glucose Comment Glu2: cleaned meter [facility] No Panel InformationOrdered By: Ama Morrison on 01-22-2022 Estimated GFR () > 60 mL/Min [facility] Comment on above: GFR estimated refere nce range: According to KDOQI guidelines, <60 ml/min/1.73m2 is sufficient to diagnose a patient with chronic kidney disease. Pharmacy Creatinine Clearance (Chem 82.75 [facility] Serum or plasma calcium tiera urement (mass/volume)Ordered By: Ama Morrison on 01-22-2022 Calcium [Mass/Vol] 9.4 mg/dL 8.2-10.2 [facility] Serum or plasma chloride marly surement (moles/volume)Ordered By: Ama Morrison on 01-22-2022 Chloride [Moles/Vol] 99 mmol/L 95-114 [facility] Serum or plasma glucose tiera urement (mass/volume)Ordered By: Ama Morrison on 01-22-2022 Glucose [Mass/Vol] 117 mg/dL 70-100 [facility] Comment on above: ADA recommended refe rence [...] 01-22-2022 Potassium [Moles/Vol] 4.6 mmol/L 3.5-5.1 [facility] Serum or plasma sodium measu rement (moles/volume)Ordered By: Ama Morrison on 01-22-2022 Sodium [Moles/Vol] 139 mmol/L 136-146 [facility] Serum or plasma total carbon dioxide measurement (moles/volume)Ordered By: Ama Morrison on 01-22-2022 CO2 [Moles/Vol] 29.5 mmol/L 22.0-30.0 [facility] Serum or plasma urea nitroge n measurement (mass/volume)Ordered By: Ama Morrison on 01-22-2022 Urea nitrogen [Mass/Vol] 17 mg/dL 9-23 [facility] Basophils Auto (Bld) [#/Vol] Ordered By: Pola Anders on 01-21-2022 Basophils (Bld) [#/Vol] 0.1 10*3/uL 0.0-0.2 [facility] Basophils/100 WBC Auto (Bld) Ordered By: Pola Anders on 01-21-2022 Basophils/100 WBC (Bld) 1.2 % [facility] Blood hemoglobin measurement (mass/volume)Ordered By: Pola Anders on 01-21-2022 Hemoglobin (Bld) [Mass/Vol] 15.9 g/dL 13.0-17.0 [facility] Blood leukocytes automated c ount (number/volume)Ordered By: Pola Anders on 01-21-2022 WBC (Bld) [#/Vol] 4.9 10*3/uL 4.5-11.0 [facility] Eosinophils Auto (Bld) [#/Vo l]Ordered By: Pola Anders on 01-21-2022 Eosinophils (Bld) [#/Vol] 0.2 10*3/uL 0.0-0.45 [facility] Eosinophils/100 WBC Auto (Bl d)Ordered By: Pola Anders on 01-21-2022 Eosinophils/100 WBC (Bld) 3.1 % [facility] Erythrocyte distribution wid th Auto (RBC) [Ratio]Ordered By: Pola Anders on 01-21-2022 Erythrocyte distribution width (RBC) [Ratio] 13.4 % 12.0-14.8 [facility] Hematocrit Auto (Bld) [Volum e fraction]Ordered By: Pola Anders on 01-21-2022 Hematocrit (Bld) [Volume fraction] 46.7 % 38.8-50.0 [facility] Laboratory - Hematology and Cell countsOrdered By: Pola Anders on 01-21-2022 Nucleated RBC/100 WBC (Bld) [Ratio] 0.2 % 0-0.5 [facility] Lymphocytes Auto (Bld) [#/Vo l]Ordered By: Pola Anders on 01-21-2022 Lymphocytes (Bld) [#/Vol] 1.3 10*3/uL 1.00-4.8 [facility] Lymphocytes/100 WBC Auto (Bl d)Ordered By: Pola Anders on 01-21-2022 Lymphocytes/100 WBC (Bld) 26.4 % [facility] MCH Auto (RBC) [Entitic mass ]Ordered By: Pola Martita on 01-21-2022 MCH (RBC) [Entitic mass] 30.8 pg 27.5-35.2 [facility] MCHC Auto (RBC) [Mass/Vol]Or dered By: Pola Martita on 01-21-2022 MCHC (RBC) [Mass/Vol] 34.2 g/dL 32.5-35.6 [facility] MCV Auto (RBC) [Entitic vol] Ordered By: Pola Martita on 01-21-2022 MCV (RBC) [Entitic vol] 90.2 fL 83.5-101 [facility] Monocytes Auto (Bld) [#/Vol] Ordered By: Pola Martita on 01-21-2022 Monocytes (Bld) [#/Vol] 0.6 10*3/uL 0.0-0.8 [facility] Monocytes/100 WBC Auto (Bld) Ordered By: Pola Martita on 01-21-2022 Monocytes/100 WBC (Bld) 13.0 % [facility] Neutrophils Auto (Bld) [#/Vo l]Ordered By: Pola Martita on 01-21-2022 Neutrophils (Bld) [#/Vol] 2.8 10*3/uL 1.8-7.7 [facility] Neutrophils/100 WBC Auto (Bl d)Ordered By: Pola Martita on 01-21-2022 Neutrophils/100 WBC (Bld) 56.3 % [facility] Platelet mean volume Auto (B ld) [Entitic vol]Ordered By: Pola Martita on 01-21-2022 Platelet mean volume (Bld) [Entitic vol] 9.2 fL 6.6-10.1 [facility] Platelets Auto (Bld) [#/Vol] Ordered By: Pola Martita on 01-21-2022 Platelets (Bld) [#/Vol] 176 10*3/uL 150-450 [facility] RBC Auto (Bld) [#/Vol]Ordere d By: Pola Martita on 01-21-2022 RBC (Bld) [#/Vol] 5.18 10*6/uL 3.90-5.60 [facility] Cholesterol [Mass/volume] in Serum or PlasmaOrdered By: Pola Anders on 01-20-2022 Cholesterol [Mass/Vol] 155 mg/dL 140-200 [facility] Comment on above: Chol less than 200 m g/dl low riskChol 201-239 mg/dl borderline riskChol 240 mg/dl and greater high risk Chol less than 200 m g/dl low risk Chol 201-239 mg/dl borderline risk Chol 240 mg/dl and greater high risk Cholesterol in LDL Calc [Mas s/Vol]Ordered By: Pola Anders on 01-20-2022 Cholesterol in LDL [Mass/Vol] 82 mg/dL 0-100 [facility] Comment on above: LDL ATP III CLASSIFI [...] Cholesterol in VLDL [Mass/Vol] 31 mg/dL [facility] Glucose mean value [Mass/vol ume] in Blood Estimated from glycated hemoglobinOrdered By: Pola Anders on 01-20-2022 Average glucose Estimated from glycated hemoglobin (Bld) [Mass/Vol] 140 mg/dL [facility] Hemoglobin A1c percentageOrd ered By: Pola Anders on 01-20-2022 HbA1c (Bld) [Mass fraction] 6.5 % 4.3-5.6 [facility] Comment on above: Increased risk for d iabetes: 5.7 - 6.4diabetes: >6.4glycemic control for adults with diabetes: <7.0 Increased risk for d iabetes: 5.7 - 6.4 diabetes: >6.4 glycemic control for adults with diabetes: <7.0 Laboratory - CoagulationOrde red By: Pola Anders on 01-20-2022 PT Coag (PPP) [Time] 15.6 s 9.0-12.9 [facility] Platelet poor plasma interna tional normalized ratio (INR) by coagulation assay (relatOrdered By: Pola Anders on 01-20-2022 INR Coag (PPP) [Relative time] 1.4 {INR} [facility] Comment on above: INR Therapeutic Rang e [...] in HDL [Mass/Vol] 41 mg/dL 29-71 [facility] Comment on above: HDL CHOL ATP-III CLA [...] in HDL [Mass ratio] 3.8 {ratio} [facility] Triglyceride [Mass/volume] i n Serum or PlasmaOrdered By: Pola Anders on 01-20-2022 Triglyceride [Mass/Vol] 158 mg/dL 35-149 [facility] Comment on above: TRIG ATP III CLASSIF [...] sensitivity method [Mass/Vol] 7 pg/mL 0-20 [facility] Vital Signs Date Time Vital Sign Value Performing Clinician Facility 12-04-2023 09:03-0500 Body height 182.9 cm Marcus Recinos MD Work Phone: [facility] 12-04-2023 09:03-0500 Body mass index (BMI) [Ratio] 31.46 kg/m2 Marcus Recinos MD Work Phone: [facility] 12-04-2023 09:03-0500 Body weight 105.23 kg Marcus Recinos MD Work Phone: [facility] 12-04-2023 09:03-0500 Diastolic blood pressure 72 mm[Hg] Marcus Recinos MD Work Phone: [facility] 12-04-2023 09:03-0500 Heart rate 61 /min Marcus Recinos MD Work Phone: [facility] 12-04-2023 09:03-0500 Systolic blood pressure 118 mm[Hg] Marcus Recinos MD Work Phone: [facility] 02-08-2023 10:42-0400 Body height 182.88 cm Tirso Gamezy Work Phone: [facility] 250 DO Work Phone: 02-08-2023 10:42-0400 Body mass index (BMI) [Ratio] 30.65 kg/m2 Tirso M Hoy Work Phone: [facility] 250 DO Work Phone: 02-08-2023 10:42-0400 Body surface area Derived from formula 2.24 m2 Tirso Rivera Hoy Work Phone: [facility] 250 DO Work Phone: 02-08-2023 10:42-0400 Body weight 102.51 kg Tirso Rivera Hoy Work Phone: [facility] 250 DO Work Phone: 02-08-2023 10:42-0400 Diastolic blood pressure 83 mm[Hg] Tirso Rivera Hoy Work Phone: [facility] 250 DO Work Phone: 02-08-2023 10:42-0400 Heart rate 54 /min Tirso Rivera Hoy Work Phone: [facility] 250 DO Work Phone: 02-08-2023 10:42-0400 Systolic blood pressure 128 mm[Hg] Tirso Rivera Hoy Work Phone: [facility] 250 DO Work Phone: 11-08-2022 11:01-0500 Body height 182.88 cm Tirso Rivera Hoy Work Phone: [facility] 250 DO Work Phone: 11-08-2022 11:01-0500 Body mass index (BMI) [Ratio] 30.92 kg/m2 Tirso Rivera Hoy Work Phone: [facility] 250 DO Work Phone: 11-08-2022 11:01-0500 Body surface area Derived from formula 2.25 m2 Tirso Rviera Hoy Work Phone: [facility] 250 DO Work Phone: 01-05-2023 11:01-0500 Body weight 103.42 kg Tirso M Hoy Work Phone: [facility] 250 DO Work Phone: 11-08-2022 11:01-0500 Diastolic blood pressure 72 mm[Hg] Tirso M Hoy Work Phone: [facility] 250 DO Work Phone: 11-08-2022 11:01-0500 Heart rate 49 /min Tirso M Hoy Work Phone: [facility] 250 DO Work Phone: 11-08-2022 11:01-0500 Systolic blood pressure 110 mm[Hg] Tirso M Hoy Work Phone: [facility] 250 DO Work Phone: 04-24-2022 14:21-0400 Body height 182.88 cm Tirso Miguel Hoy Work Phone: [facility] 250 DO Work Phone: 04-24-2022 14:21-0400 Body mass index (BMI) [Ratio] 30.38 kg/m2 Tirso M Hoy Work Phone: [facility] 250 DO Work Phone: 04-24-2022 14:21-0400 Body surface area Derived from formula 2.24 m2 Tirso Miguel Hoy Work Phone: [facility] 250 DO Work Phone: 04-24-2022 14:21-0400 Body weight 101.61 kg Tirso M Hoy Work Phone: [facility] 250 DO Work Phone: 04-24-2022 14:21-0400 Diastolic blood pressure 80 mm[Hg] Tirso M Hoy Work Phone: [facility] 250 DO Work Phone: 04-24-2022 14:21-0400 Heart rate 51 /min Tirso Rivera Hoy Work Phone: [facility] 250 DO Work Phone: 04-24-2022 14:21-0400 Systolic blood pressure 118 mm[Hg] Tirso Rivera Hoy Work Phone: [facility] 250 DO Work Phone: 04-17-2022 12:00-0400 Body temperature 97.34 [degF] Sarath Menendezer [facility] 04-17-2022 12:00-0400 Diastolic blood pressure 68 mm[Hg] Sarath Crumhler [facility] 04-17-2022 12:00-0400 Heart rate 50 /min Sarath Menendezer [facility] 04-17-2022 12:00-0400 SaO2% (BldA) [Mass fraction] 96 % Sarath Crumhler [facility] 04-17-2022 12:00-0400 Systolic blood pressure 100 mm[Hg] Sarath Crumhler [facility] 04-17-2022 11:36-0400 Blood Pressure Location Sarath Menendezer [facility] 04-17-2022 11:36-0400 BP/Pulse Patient Position Sarath Crumhler [facility] 04-17-2022 11:36-0400 Diastolic blood pressure 75 mm[Hg] Sarath Zahler [facility] 04-17-2022 11:36-0400 Heart rate 47 /min Sarath Menendezer [facility] 04-17-2022 11:36-0400 Respiratory rate 18 /min Sarath Crumhler [facility] 04-17-2022 11:36-0400 SaO2% (BldA) [Mass fraction] 94 % Sarath Zahler [facility] 04-17-2022 11:36-0400 Systolic blood pressure 109 mm[Hg] Sarath Crumhler [facility] 04-17-2022 11:20-0400 Blood Pressure Location Sarath Menendezer [facility] 04-17-2022 11:20-0400 BP/Pulse Patient Position Sarath Crumhler [facility] 04-17-2022 11:20-0400 Diastolic blood pressure 82 mm[Hg] Sarath Crumhler [facility] 04-17-2022 11:20-0400 Heart rate 47 /min Sarath Crumhler [facility] 04-17-2022 11:20-0400 Respiratory rate 18 /min Sarath Zahler [facility] 04-17-2022 11:20-0400 SaO2% (BldA) [Mass fraction] 94 % Sarath Crumhler [facility] 04-17-2022 11:20-0400 Systolic blood pressure 110 mm[Hg] Sarath Crumhler [facility] 04-17-2022 09:32-0400 Blood Pressure Location Sarath Zahler [facility] 04-17-2022 09:32-0400 BP/Pulse Patient Position Sarath Crumhler [facility] 04-17-2022 09:32-0400 Mean blood pressure 76 mm[Hg] Sarath Hines [facility] 04-17-2022 09:31-0400 Body temperature 98.6 [degF] Sarath Hines [facility] 04-17-2022 09:31-0400 Mean blood pressure 79 mm[Hg] Sarath Hines [facility] 04-17-2022 09:31-0400 Respiratory rate 20 /min Sarath Hines [facility] 03-27-2022 09:00-0400 Inhaled oxygen flow rate 2 L/min Tirso Frausto Work Phone: [facility] 02-27-2022 12:16-0400 Body height 182.88 cm Tirso Miguel Hoy Work Phone: [facility] 250 DO Work Phone: 02-27-2022 12:16-0400 Body mass index (BMI) [Ratio] 30.65 kg/m2 Tirso M Hoy Work Phone: [facility] 250 DO Work Phone: 02-27-2022 12:16-0400 Body surface area Derived from formula 2.24 m2 Tirso M Hoy Work Phone: [facility] 250 DO Work Phone: 02-27-2022 12:16-0400 Body weight 102.51 kg Tirso M Hoy Work Phone: [facility] 250 DO Work Phone: 02-27-2022 12:16-0400 Diastolic blood pressure 80 mm[Hg] Tirso M Hoy Work Phone: [facility] 250 DO Work Phone: 02-27-2022 12:16-0400 Heart rate 79 /min Tirso Rivera Hoy Work Phone: [facility] 250 DO Work Phone: 02-27-2022 12:16-0400 Systolic blood pressure 110 mm[Hg] Tirso Miguel Hoy Work Phone: [facility] 250 DO Work Phone: 02-13-2022 13:01-0400 Body height 182.88 cm Tirso Rivera Hoy Work Phone: [facility] 250 DO Work Phone: 02-13-2022 13:01-0400 Body mass index (BMI) [Ratio] 30.11 kg/m2 Tirso Rivera Hoy Work Phone: [facility] 250 DO Work Phone: 02-13-2022 13:01-0400 Body surface area Derived from formula 2.23 m2 Tirso Miguel Hoy Work Phone: [facility] 250 DO Work Phone: 02-13-2022 13:01-0400 Body weight 100.7 kg Tirso Rivera Hoy Work Phone: [facility] 250 DO Work Phone: 02-13-2022 13:01-0400 Diastolic blood pressure 72 mm[Hg] Tirso Rivera Hoy Work Phone: [facility] 250 DO Work Phone: 02-13-2022 13:01-0400 Heart rate 104 /min Tirso Miguel Hoy Work Phone: [facility] 250 DO Work Phone: 02-13-2022 13:01-0400 Systolic blood pressure 104 mm[Hg] Tirso Miguel Hoy Work Phone: [facility] 250 DO Work Phone: 01-23-2022 08:00-0400 Body temperature 97.8 [degF] MD Tirso Frausto Work Phone: [facility] 01-23-2022 08:00-0400 Diastolic blood pressure 64 mm[Hg] MD Tirso Frausto Work Phone: [facility] 01-23-2022 08:00-0400 Heart rate 73 /min MD Tirso Frausto Work Phone: [facility] 01-23-2022 08:00-0400 Respiratory rate 18 /min MD Tirso Frausto Work Phone: [facility] 01-23-2022 08:00-0400 SaO2% (BldA) [Mass fraction] 93 % MD Tirso Frausto Work Phone: [facility] 01-23-2022 08:00-0400 Systolic blood pressure 100 mm[Hg] MD Tirso Frausto Work Phone: [facility] 01-23-2022 05:57-0400 Body weight 93.1 kg MD Tirso Frausto Work Phone: [facility] 01-22-2022 08:40-0400 Inhaled oxygen flow rate 2 L/min MD Tirso Frausto Work Phone: [facility] 01-20-2022 16:12-0400 55 1 Tirso Frausto Work Phone: [facility] 250 DO Work Phone: Comment on above: [id number] 01-20-2022 02:09-0400 Body height 182.88 cm MD Tirso Frausto Work Phone: [facility] 01-20-2022 02:09-0400 Body mass index (BMI) [Ratio] 29.9 kg/m2 MD Tirso Frausto Work Phone: [facility] Encounters Encounter Date Encounter Type Care Provider Facility Start: 06-03-2024 End: 06-03-2024 ambulatory [facility] Start: 12-04-2023 End: 12-04-2023 Office outpatient visit 25 minutes Marcus Recinos MD Work Phone: [facility] Comment on above: Atrial flutter, unsp ecified type (CMS/HCC) (Primary Dx); Benign essential hypertension; High risk medication use; Hyperlipidemia, unspecified hyperlipidemia type; Pulmonary emphysema, unspecified emphysema type (CMS/HCC); Coronary artery disease involving caddo coronary artery of caddo heart without angina pectoris; Obesity, Class I, BMI 30-34.9 Start: 12-04-2023 End: 12-04-2023 ambulatory MARC[facility] Start: 05-06-2023 Patient encounter procedure Tirso Frausto Work Phone: [facility] 250 DO Work Phone: Start: 03-08-2023 End: 03-09-[address] TIRSO FRAUSTO . Facility:[facility] Start: 02-08-2023 Patient encounter procedure Tirso Frausto Work Phone: [facility] 250 DO Work Phone: Start: 02-08-[address] Darwin Perdomo Facility: Start: 02-05-2023 AUDIT Tirso Frausto Work Phone: [facility] 250 DO Work Phone: Start: 02-01-2023 End: 02-01-2023 ambulatory NOELLE VALERA Facility:[facility] Start: 01-22-2023 End: 01-22-2023 ambulatory Jina Rios Other [employer] [facility] Other Start: 01-22-2023 Telephone encounter Jina Rios [facility] Start: 01-21-2023 Telephone encounter Tirso Frausto Work Phone: [facility] 250 DO Work Phone: Start: 01-10-2023 End: 01-11-[address] MARCUS RECINOS Facility:H1 Start: 01-01-2023 ([facility] R A/c) [facility] Re peat A/C Espinoza Sansohail [facility] Start: 01-01-2023 [facility] Start: 01-01-2023 End: 01-02-2023 ambulatory Marcus Recinos [facility] Other Start: 12-20-2022 Patient encounter procedure Tirso Frausto Work Phone: [facility] 250 DO Work Phone: Start: 12-10-2022 ([facility] R A/c) [facility] Re peat A/C Victoria Smithfield [facility] Start: 12-10-2022 End: 12-10-2022 ambulatory Victoria Guanako Other [facility] Other Start: 11-26-2022 ([facility] R A/c) [facility] Re peat A/C Victoria Guanako [facility] Start: 11-26-2022 End: 11-26-2022 ambulatory Victoria Mujica Other [facility] Other Start: 11-15-2022 ([facility] R A/c) [facility] Re peat A/C Carlos A Salazar [facility] Start: 11-15-2022 End: 11-15-2022 ambulatory Carlos A Salazar Other [employer] [facility] Other Start: 11-14-2022 End: 11-15-[address] MARCUS RECINOS Facility:H1 Start: 11-08-2022 Office outpatient vi sit 25 minutes Tirso Frausto Work Phone: [facility] 250 DO Work Phone: Start: 11-08-2022 ambulatory Marcus Recinos Facility :[id number] Start: 11-02-2022 End: 11-03-[address] TIRSO FRAUSTO . Facility:H1 Start: 11-01-2022 End: 11-01-2022 ambulatory Jina Rios Other [facility] Other Start: 11-01-2022 Telephone encounter Jina Rios [facility] Start: 10-23-2022 End: 10-24-[address] MARCUS RECINOS Facility:H1 Start: 10-22-2022 End: 10-23-[address] ABHIJIT MIKE Facility:H1 Start: 10-15-2022 Telephone encounter Tirso Frausto Work Phone: [facility] 250 DO Work Phone: Start: 10-10-2022 Patient encounter procedure Tirso Frausto Work Phone: [facility] 250 DO Work Phone: Start: 10-09-2022 End: 10-10-[address] TIRSO FRAUSTO . Facility:H1 Start: 08-10-2022 Chart Update Tirso Frausto Work Phone: [facility] 250 DO Work Phone: Start: 07-30-2022 End: 07-30-2022 ambulatory Marcus Recinos Facility:[facility] Start: 07-06-2022 Patient encounter procedure Tirso Frausto Work Phone: [facility] 250 DO Work Phone: Start: 05-15-2022 Rx Renewal Tirso Frausto Work Phone: [facility] 250 DO Work Phone: Start: 04-26-2022 Chart Update Tirso Frausto Work Phone: [facility] 250 DO Work Phone: Start: 04-26-2022 End: 04-26-2022 ambulatory Marcus Recinos Facility:[facility] Start: 04-26-2022 End: 04-26-2022 Patient encounter procedure MD Tirso Frausto Work Phone: [facility] Start: 04-24-2022 Office outpatient vi sit 25 minutes Tirso Frausto Work Phone: [facility] 250 DO Work Phone: Start: 04-24-2022 ambulatory Marcus Recinos Facility : Start: 04-19-2022 Rx Renewal Tirso Gamezsalome Work Phone: [facility] 600 DO Work Phone: Start: 04-17-2022 End: 04-17-2022 Admission to same day surgery center Sarath Hines [facility] Start: 03-28-2022 Chart Update Tirso Frausto Work Phone: [facility] 250 DO Work Phone: Start: 03-27-[address] Tirso Frausto Facility:[id number] Start: 03-27-2022 SURGNON, Provider: Marcus Recinos, Status: Pen, Time: 9:00 AM Tirso Frausto Work Phone: [facility] 250 DO Work Phone: Start: 03-27-2022 End: 03-27-2022 Admission to same day surgery center MD Tirso Frausto Work Phone: [facility]Electro[facility]ostics Start: 03-26-2022 Chart Update Tirso Frausto Work Phone: [facility] 250 DO Work Phone: Start: 03-23-2022 End: 03-23-2022 Patient encounter procedure MD Tirso Frausto Work Phone: [facility] Start: 03-15-2022 End: 03-15-[address] TIRSO FRAUSTO . Facility: Start: 03-08-2022 Patient encounter procedure Tirso M Lisbet Work Phone: [facility] 250 DO Work Phone: Start: 03-01-2022 Telephone encounter Tirso Miguel Lisbet Work Phone: [facility] 250 DO Work Phone: Start: 02-27-2022 ambulatory Marcus Recinos Facility : Start: 02-27-2022 Patient encounter procedure Tirso Rivera Lisbet Work Phone: [facility] 250 DO Work Phone: Start: 02-13-2022 Office outpatient vi sit 25 minutes Tirso Frausto Work Phone: [facility] 250 DO Work Phone: Start: 02-13-2022 ambulatory Marcus Recinos Facility : Start: 01-25-2022 End: 01-25-2022 Patient encounter procedure MD Tirso Frausto Work Phone: [facility] [address] Start: 01-20-2022 End: 01-23-2022 Evaluation and management of inpatient MD Tirso Frausto Work Phone: [facility] [place] [facility] Procedures Date Procedure Procedure Detail Performing Clinician Start: 12-04-2023 ECG 12-LEAD MARCUS SUNSHINE Start: 12-04-2023 Ecg routine ecg w/le ast 12 lds w/i&r Marcus Recinos MD Work Phone: Start: 10-09-[address] ABHIJIT Riley ISTED REQUEST Comment on above: Performed By: #### O BSCRN #### [facility] [address] [place] [address] Dr. Igor Hayes Start: 04-26-2022 Plain chest [...] 04-12-2031 Screening for malignant neoplasm of colon [facility] Start: 06-03-2024 End: 06-03-2024 Patient encounter procedure 06/03/2024 10:00 AM EDT Office Visit [facility] [address] [facility] [address] [place] [address] Marcus Recinos MD [address] [facility] 2, [address] [place] [address] [facility] Start: 07-05-2023 Influenza vaccination Influenza Vaccine (#1) [facility] Start: 05-29-2023 FUV, Provider: Marcus Recinos, Status: Pen, Time: 9:30 AM FUV, Provider: Marcus Recinos, Status: Pen, Time: 9:30 AM -[facility] 250 DO Work Phone: Start: 05-14-2023 FUV, Provider: Darwin Perdomo, Status: Pen, Time: 9:30 AM FUV, Provider: Darwin Perdomo, Status: Pen, Time: 9:30 AM -[facility] 250 DO Work Phone: Start: 11-08-2022 FUV, Provider: Marcus Recinos, Status: Pen, Time: 10:40 AM FUV, Provider: Marcus Recinos, Status: Pen, Time: 10:40 AM -[facility] 250 DO Work Phone: Start: 04-24-2022 FUV, Provider: Marcus Recinos, Status: Pen, Time: 2:10 PM FUV, Provider: Marcus Recinos, Status: Pen, Time: 2:10 PM -[facility] 250 DO Work Phone: Start: 03-27-2022 SURGNONUH, Provider: Marcus Recinos, Status: Pen, Time: 9:00 AM SURGNONUH, Provider: Marcus Recinos, Status: Pen, Time: 9:00 AM -[facility] 250 DO Work Phone: Start: 02-27-2022 EKG, Provider: [employer] 1,[id number], Status: Pen, Time: 10:00 AM EKG, Provider: [employer] 1,[id number], Status: Pen, Time: 10:00 AM -[facility] 250 DO Work Phone: Start: 2019 Abdominal aortic aneurysm screening Abdominal Aortic Aneurysm (AAA) Screening [facility] Start: 2004 Zoster Vaccines (1 of 2) Zoster Vaccines (1 of 2) [facility] Start: 1976 DTaP/Tdap/Td Vaccines (1 - Tdap) DTaP/Tdap/Td Vaccines (1 - Tdap) [facility] Start: 1972 Hepatitis C screening Hepatitis C Screening [facility] Start: 1960 Pneumococcal Vaccine: 65+ Years (1 - PCV) Pneumococcal Vaccine: 65+ Years (1 - PCV) [facility] Start: 04-30-1955 COVID-19 Vaccine (#1) COVID-19 Vaccine (#1) [facility] Start: 1954 Lipid panel Lipid Panel [facility] Start: 1954 Medicare Annual Wellness Visit Medicare Annual Wellness Visit (AWV) [facility] Start: 1954 Screening for malignant neoplasm of colon [facility] Start: 1954 Thyroid stimulating hormone measurement TSH Level [facility] Patient Education Cardiomyopathy (DC) Digoxin Enalapril Furosemide Metoprolol Spironolactone Atrial Flutter (DC) [facility] Work Phone: Patient referral [facility] Work Phone: Immunizations Immunization Date Immunization Notes Care Provider Fa carlton NEGATED: Highlighted row has not occurred!01-05-2021 influenza virus vaccine, unspecified formulation Sarath Hines [facility] Payers Date Payer Category Payer Self-pay [id number] 2019 Medicare MEDICARE MEDICAR E PART A AND B [id number] 2019-Present [address] [place] [address] [id number] 2019 Private Health Insurance AETNA S UPPLEMENTAL AETNA SENIOR SUPPLEMENT [id number] 2019-Present [address] [place] [address] [id number] 1959 Medicare [id number] 1959 Private Health Insurance [facility] [id number] 1954 Unknown [id number] 2.16.840.1.187148.3.579 .2.356 1954 Unknown [id number] 2.16.840.1.908118.3.579 .2.356 1954 Unknown [id number] 2.16.840.1.116378.3.579 .2.356 1954 Unknown [id number] 2.16.840.1.172475.3.579 .2.356 1954 Unknown [id number] 2.16.840.1.962568.3.579 .2.356 1954 Unknown [id number] 2.16.840.1.546974.3.579 .2.356 1954 Unknown [id number] 2.16.840.1.211066.3.579 .2.593 1954 Unknown [id number] 2.16.840.1.582954.3.579 .2.593 1954 Unknown [id number] 2.16.840.1.784364.3.579 .2.593 1954 Unknown [id number] 2.16.840.1.644960.3.579 .2.593 1954 Unknown [id number] 2.16.840.1.328467.3.579 .2.593 1954 Unknown [id number] 2.16.840.1.611790.3.579 .2.593 1954 Unknown [id number] 2.16.840.1.235569.3.579 .2.593 1954 Unknown [id number] 2.16.840.1.172203.3.579 .2.593 1954 Unknown [id number] 2.16.840.1.937831.3.579 .2.593 1954 Unknown [id number] 2.16.840.1.708538.3.579 .2.593 1954 Unknown [id number] 2.16.840.1.949281.3.579 .2.1244 1954 Unknown [id number] 2.16.840.1.935270.3.579 .2.1244 Unknown [id number] Unknown Unknown [id number] 2.16.840.1.000359.3.579 .2.531 Unknown [id number] 2.16.840.1.147446.3.579 .2.531 Unknown [id number] 2.16.840.1.814713.3.579 .2.531 Social History Date Type Detail Facility Start: 01-20-2022 End: 12-04-2023 Tobacco smoking status ALIS Ex-smoker (finding) [facility] Start: 12-04-2023 End: 09-30-2021 History of tobacco use [facility] Work Phone: Start: 1955 Sex Assigned At Male F [facility] Start: 12-04-2023 No illicit drug use No illicit drug use [facility] 250 DO Work Phone: Comment on above: DRINKS 6 BEERS A DAY ; 2 CUPS OF COFFEE TANNER LY; QUIT IN 08/2021; Start: 04-20-2021 Tobacco smoking status Heavy t obacco smoker (finding) [facility] End: 11-04-2020 Tobacco smoking status Smoker (finding) [facility] Tobacco smoking status Never Fishe r [facility] End: 11-04-2020 History of tobacco use Cigarette Smoker [facility] Work Phone: Start: 12-04-2023 Tobacco use and exposure Smokeless tobacco non-user [facility] Work Phone: Start: 12-04-2023 Alcohol intake Current drinke r of alcohol (finding) [facility] Work Phone: Start: 1955 Sex Assigned At Not on file [facility] Work Phone: Start: 11-24-2023 End: 12-04-2023 Exposure to SARS-CoV-2 (event) Not sure [facility] Medical Equipment Procedure Code Equipment Code Equipment Origin al Text Equipment Identifier Dates CATARACT EXTRACT ION W/ INTRAOCULAR LENS SkylaMunira melchor DOnathan 04/17/22 Non Biological Eye L [id number] [facility] Start: 04-17-2022 Goals Date Patient Goal Desired Activity /State Functional Status Date Assessment Result Facility 04-17-2022 Functional Status N/A Nar[facility] - [facility] 01-23-2022 Functional status Patient at Baseline [facility] Work Phone: Mental Status Date Assessment Result Facility 01-23-2022 Cognitive function Cognitive Sta tus Patient at Baseline [facility] Work Phone: Clinical Notes 01-20-2022 to [...] hours if needed., Disp: , Rfl: vitamins A,C,S-xjce-sgsymj (PreserVision AREDS) 2,148 mcg-113 mg-45 mg-17.4mg tablet, [...] type (CMS/HCC) 6. Coronary artery disease involving caddo coronary artery of caddo heart without angina pectoris 7. Obesity, Class I, BMI 30-34.9 documented in this encounter [facility] Work Phone: 12-04-2023 Instructions Leticia Mi LPN [...] January as scheduled documented in this encounter [facility] Work Phone: 01-01-2023 Evaluation note Encounter Date [...] Olga Phipps PharmD, Funmilayo Velazquez PharmD Candidate [facility] Other 02-06-2023 Evaluation note* Encounter Date Diagnosis [...] in 3 weeks. Seen by Ana Mujica [facility], Qi ShermanD Candidate [facility] Other 01-23-2023 Evaluation note* Encounter Date Diagnosis [...] in 2 weeks. Seen by Ana Mujica [facility] [employer] Other 01-12-2023 Evaluation note* Encounter Date Diagnosis [...] week. Seen by Carlos A Salazar PharmD [facility] Other 06-01-2022 Hospital Discharge instructions Follow Up Care 04/04/2022 10:45:36 With:JOVANNA EDMONDS Address: [address] [place] [phone] ( [phone] Business (1) When:1 to 2 days [facility]05-24-2022 Procedure [facility]03-22-2022 Discharge summary Author Jin Berkowitz [facility] January 23, 2022 12:48pm Note Date/Time January 23, 2022 12: 48pm [facility] [address] [place] [id number] Discharge Summary Signed Patient: Remedios Magaña MR#: [id number] : 1955 Acct:[id number] Age/Sex: 66 / M Adm Date: 2 Loc: Room: [address] [place] [address]: Jin Berkowitz MD Copies to: [...] reformed smoker was recommended to go to [place] ED after he was found to have [...] atrial flutter and was recommended togo to [place] ED.? EKG done there showed changes suspicious for ACS, ED physician spoke to cardiology here and was recommended to transfer here for further evaluation and management.? The patient was transferred to [facility] for further evaluation. Cardiology was consulted. He [...] Home Additional Instructions: DISCHARGE INSTRUCTIONS FOR CARDIAC FIELD SERVICE CONSULTANT PHONE NUMBER OF YOUR PHYSICIAN: [phone] PROCEDURE: Heart Cath The following instructions have [...] cold, numb, blue or white, call the assembler dielectric heater immediately. 4. ACTIVITY: You are advised to [...] follow the instructions on the bottle. [facility] is not responsible for incorrect prescription information [...] Patient Ordered By: Ama Morrison Follow Up: [facility] [Outside] Marcus Recinos MD [Active Staff] - 02/13/22 12:40 pm Tirso rFausto MD [Primary Care Provider] - (You have been scheduled for a follow up appointment for the following date and time, please call to rescheduleif needed.) Documented By: Jin Berkowitz MD 01/23/221243 Signed By: <Electronically signed by Jin Berkowitz MD> 01/23/22 124 [facility] Work Phone: 1(177) 376-375703-22-2022 Progress note Author Brandt Petit [facility] January 23, 2022 8:50am Note Date/Time January 23, 2022 8:5 0am [facility] [address] [place] [address] Cardiology Progress Note Signed Patient: Remedios Magaña MR#: [id number] : 1955 Acct:[id number] Age/Sex: 66 / M Adm Date: 2 Loc: Room: [address] [place] [address] Type : ADM INOo Attending Dr: Jin [...] for elective cardioversion in 4 weeks for jain of normal sinus mechanism (3) Diabetes mellitus: [...] 01/23/22 0844 Signed By: <Electronically signed by Brnadt Petit MD> 01/23/22 0850 [facility] Work Phone: 1(725) 562-366803-22-2022 Hospital Discharge instructions Additional Instructions DISCHARGE INSTRUCTIONS FOR CARDIAC FIELD SERVICE CONSULTANT PHONE NUMBER OF YOUR PHYSICIAN: [phone] PROCEDURE: Heart Cath The following instructions have [...] cold, numb, blue or white, call the assembler dielectric heater immediately. 4. ACTIVITY: You are advised to [...] follow the instructions on the bottle. [facility] is not responsible for incorrect prescription information provided by the patient during their visit. Do not stop your medications without consulting your health care provider. Please take the list with you to your next doctor's appointment.[facility] Work Phone: 1(678) 489-916603-21-2022 Progress note Author Jin Berkowitz [facility] January 22, 2022 1:17pm Note Date/Time January 22, 2022 1:1 2pm [facility] [address] [place] [address] Hospitalist Progress Note Signed Patient: Remedios Magaña MR#: [id number] : 1955 Acct:[id number] Age/Sex: 66 / M Adm Date: 2 Loc: Room: [address] [place] [address] Type : ADM INOo Attending Dr: Jin [...] <Electronically signed by Jin Berkowitz MD> 01/22/22 1312 [facility] Work Phone: 1(371) 811-270103-20-2022 Progress note Author Ama Morrison [facility] January 21, 2022 5:02pm Note Date/Time January 21, 2022 3:1 9pm [facility] [address] [place] [address] Hospitalist Progress Note Signed with Addenda Patient: Remedios Magaña MR#: [id number] : 1955 Acct:[id number] Age/Sex: 66 / M Adm Date: 2 Loc: Room: [address] [place] [address] Type : ADM INOo Attending Dr: Ama [...] Heparin IV 01/20/23 02:59 Not Given .Q24H NACRISO Protocol Lorazepam 0 mg 01/20/22 02:45 Lorazepam [...] <Electronically signed by Ama Morrison MD> 01/21/22 1523 [facility] Work Phone: 1(623) 299-317603-20-2022 Progress note Author Brandt Petit [facility] January 21, 2022 10:42am Note Date/Time January 21, 2022 10: 41am [facility] [address] [place] [address] Cardiology Progress Note Signed Patient: Remedios Magaña MR#: [id number] : 1955 Acct:[id number] Age/Sex: 66 / M Adm Date: 2 Loc: Room: [address] [place] [address] Type : ADM INOo Attending Dr: Ama [...] MPV Neut % (Auto) Lymph % (Auto) Petroleum % (Auto) Eos % (Auto) Baso % (Auto) Neut # (Auto) Lymph # (Auto) Petroleum # (Auto) Eos # (Auto) Baso # (Auto) Nucleated RBC % (auto) APTT POC Glucose 133 POC Glucose Comment Glu2: cleaned meter Troponin I High Sens 7 Add-On Test Request Cancelled 01/20/22 01/20/22 01/20/22 16:41 17:37 20:51 Corrected WBC Uncorrected WBC Count RBC Hgb Hct MCV MCH MCHC RDW Plt Count MPV Neut % (Auto) Lymph % (Auto) Petroleum % (Auto) Eos % (Auto) Baso % (Auto) Neut # (Auto) Lymph # (Auto) Petroleum # (Auto) Eos # (Auto) Baso # [...] % (Auto) 56.3 Lymph % (Auto) 26.4 Petroleum % (Auto) 13.0 Eos % (Auto) 3.1 Baso % (Auto) 1.2 Neut # (Auto) 2.8 Lymph # (Auto) 1.3 Petroleum # (Auto) 0.6 Eos # (Auto) 0.2 Baso # (Auto) 0.1 Nucleated RBC % (auto) 0.2 APTT 81.3 H POC Glucose 113 POC Glucose Comment Troponin I High Sens Add-On Test Request 01/21/22 07:15 Corrected WBC Uncorrected WBC Count RBC Hgb Hct MCV MCH MCHC RDW Plt Count MPV Neut % (Auto) Lymph % (Auto) Petroleum % (Auto) Eos % (Auto) Baso % (Auto) Neut # (Auto) Lymph # (Auto) Petroleum # (Auto) Eos # (Auto) Baso # [...] signed by Brandt Petit MD> 01/21/22 1042 [facility] Work Phone: 1(964) 936-523703-19-2022 Consult note Author Brandt Petit [facility] January 20, 2022 5:08pm Note Date/Time January 20, 2022 5:0 8pm [facility] [address] [place] [address] Cardiology Consult Note Signed Patient: Remedios Magaña MR#: [id number] : 1955 Acct:[id number] Age/Sex: 66 / M Adm Date: 2 Loc: Room: [address] [place] [address] Type : ADM INOo Attending Dr: Ama [...] breath with exertion. He went to an clinical writer appointment at which time he was told [...] that the patient last night went to [place] emergency department for evaluation. In the [place] ER, an EKG was checked which again [...] mg-vit E 90 mg-zinc 40 mg-copper 1 cx-mjxlqi-csthrd capsule (PreserVision AREDS-2) 1 tab PO BID [...] x10E3/uL Lymph # (Auto) 1.3 (1.00-4.8) x10E3/uL Petroleum # (Auto) 0.6 (0.0-0.8) x10E3/uL Eos # [...] <Electronically signed by Brandt Petit MD> 01/20/22 5999 [facility] Work Phone: 1(451) 801-433103-19-2022 History and physical note [facility] January 20, 2022 6:26am Note Date/Time January 20, 2022 2:4 5am [facility] [address] [place] [address] Hospitalist H&P Signed Patient: Remedios Magaña MR#: [id number] : 1955 Acct:[id number] Age/Sex: 66 / M Adm Date: 2 Loc: Room: [address] [place] [address] Type : ADM IN Attending Dr: Pola Anders MD Copies to: MD Tirso Chew MD~ HPI DATE OF EXAMINATION: 01/20/22 CHIEF COMPLAINT: chest pain HISTORY OF PRESENT ILLNESS: Patient is a 66-year-old gentleman past medical history of diabetes diet- controlled, hyperlipidemia, BPH, reformed smoker was recommended to go to [place] ED after he was found to have [...] atrial flutter and was recommended togo to [place] ED. EKG done there showed changes suspicious [...] negative unless noted below or in HPI [facility] Medical History (Updated 01/20/22 @ 02:46 by [...] mg-vit E 90 mg-zinc 40 mg-copper 1 jf-ftkvoy-bxyrff capsule (PreserVision AREDS-2) 1 tab PO BID [...] and is hemodynamically stable Labs reviewed from [place] ED which are essentially normal including TSH and Troponin Obtain lipid panel, A1c, echo Consult cardiology Ordered routine labs Telemetry Fall precautions CIWA protocol Resume heparin drip that has been started at [place] ED DVT prophylaxis CODE STATUS full code. Documented By: Pola Anders MD 01/20/22 0238 Signed By: <Electronically signed by Pola Anders MD> 01/20/22 0626 [facility] Work Phone: Discharge summary Author Marcus Recinos [facility] March 27, 2022 9:20am Note Date/Time March 27, 2022 9:20a m [facility] [address] [place] [address] Discharge Summary Signed Patient: Remedios Magaña MR#: [id number] : 1955 Acct:[id number] Age/Sex: 66 / M Adm Date: 2 Loc: Room: Attending Dr: Marcus Recinos MD Copies to: MD Marcus Sommer MD, [facility]~ Providers Date of Discharge: 03/27/22 Discharging Provider: [...] RF: 0 Documented By: Marcus Recinos MD, [facility] 919 Signed By: <Electronically signed by [facility] Marcus Recinos> 03/27/22 09 [facility] Work Phone: Evaluation + Plan note No data available for this section [facility] Diagnosis Onset Date Resolution Status Atrial flutter acute Cardiomyopathy acute Chronic alcohol use acute Diabetes mellitus acute Hyperlipidemia acute [facility] Work Phone: Evaluation noteNo assessment information available [facility] Work Phone: Evaluation noteNo InformationNort [employer] Technologies Other Evaluation note* Diagnosis Atrial flutter, unspecified type (CMS/HCC)- Primary Benign essential hypertension Essential hypertension, benign High risk medication use Hyperlipidemia, unspecified hyperlipidemia type Pulmonary emphysema, unspecified emphysema type (CMS/HCC) Coronary artery disease involving [place] coronary artery of caddo heart without angina pectoris Obesity, Class I, BMI 30-34.9 documented in this encounter [facility] Work Phone: [facility] Phone[facility] Work Phone: [facility] Work Phone: Progress note No data available for this section [facility] Chief Complaint and Reason for Visit Chief [...] Recinos MD for review.Amiodarone Order sent to [facility] for testing due in MARCH* S/P CARDIOVERSION. [...] in the past Amiodarone Order sent to [facility] for testing due in JulyAmiodarone order sent to [facility] for October 2022* REMEDIOS MAGAÑA [...] more aggressive diet. Amiodarone order sent to [facility] for January 2023* Patient in [...] test done please contact our office at [phone] and press option #4 so that we may assist you in the problems. * Thank you for your compliance with this testing. * The Staff * [facility] * Please have done July [...] Lead Marcus Recinos MD [address] [facility], [place] [address] [place] [id number] Referral ID Status Reason Start Date Expiration Date V isits Requested Visits Authorized [id number] Authorized 12/04/2023 12/03/2024 1 1 Specialty Diagnoses / Procedures Referred By Mateo danielle Referred To Contact Cardiology Diagnoses Benign essential hypertension Atrial flutter, unspecified type (CMS/HCC) Procedures Follow Up In Cardiology Marcus Recinos MD [address] [facility], [place] [place] [address] Marcus Recinos MD [address] [facility] 2, [facility] [address] [place] [address] Referral ID Status Reason Start Date Expiration Date V isits Requested Visits Authorized [id number] Authorized 12/04/2023 12/03/2024 1 1 Additional Source [...] Attending Provider, Referring Prov ider Active Rn Nicu Relationship Specialty Start Date End Date Tirso Frausto MD [address] [facility] [place] [address] PCP - General 11/04/99 (unrecognized sect ion and content) No Status Records FoundNo Status Records FoundNo Status Records FoundNo Status Records FoundNo Status Records FoundNo Status Records Found INFORMATION SOURCE (unrecogn ized section and content) DATE CREATED AUTHOR 04/25/2022 [employer] DATE CREATED AUTHOR AUTHOR'S ORGANIZ ATION 02/10/2023 [facility] DATE CREATED AUTHOR AUTHOR'S ORGANIZ ATION 03/15/2023 [facility] DATE CREATED AUTHOR AUTHOR'S ORGANIZ ATION 04/12/2023 [facility] DATE CREATED AUTHOR AUTHOR'S ORGANIZ ATION 02/20/2024 [facility] DATE CREATED AUTHOR AUTHOR'S ORGANIZ ATION 06/05/2024 [facility] Ambulatory Goals (unrecognized section and content) Goals may be documented in a n alternate section REASON FOR VISIT (unrecogniz ed section and content) Reason Comments Follow-up 6 months Specialty Diagnoses / Procedures Referred By Contac t Referred To Contact Diagnoses Atrial flutter, unspecified type ([facility] Procedures ECG 12 Lead Marcus Recinos MD [address] [facility] 2, [address] [address] Referral ID Status Reason Start Date Expiration Date V isits Requested Visits Authorized [id number] Authorized 12/04/2023 12/03/2024 1 1 FOR RECORDS [...] BE BASED ON THE PRIMARY CLINICAL RECORDS. [employer] [facility]. provides no warranty or guarantee of the accuracy or completeness of information in this document.
[2024-07-28 10:30] LABS: Estimated Average Glucose 137 mg/dL; Glycohemoglobin A1C 6.4 % (4.5-6.2)
== END 2024-07-28 10:02 | disposition home or self-care (01) ==
LOC: LAB 10:03
PROVIDERS: PCP Family Medicine; Visit Provider Family Medicine
DX: E11.65 Type 2 diabetes mellitus with hyperglycemia (principal)
CPT/HCPCS: 36415; 83036

== ENCOUNTER 2024-12-28 08:10 | Outpatient (OUT) | payer MEDICARE, SELFPAY ==
--- NOTE | 2024-12-28 08:16 | XR_ITS ---
The [address] [address] Patient Name: REMEDIOS VAUGHAN MRN: [id number] date: 1955 Sex: M Assigned Patient Location: LAB Current Patient Location: LAB Accession/Order Number: [id number] Exam Date: 12/28/2024 10:18 Report Date: 12/28/2024 10:21 At the request of: MARIA ESTHER CORTES Procedure: XR chest 2V PA AND LATERAL CHEST: CLINICAL HISTORY: Atrial Flutter, High Risk Medication COMPARISON: 01/09/2024 The lungs are hyperinflated. Granulomatous changes are seen. There is no focal parenchymal consolidation, effusion or pneumothorax. The cardiac, hilar and mediastinal silhouettes are within normal limits. There is no vascular congestion. An old right rib fractures again noted. There is subtle dextroscoliotic curvature as well as endplate spurring. XR/XR chest 2V IMPRESSION: NO ACUTE CARDIOPULMONARY ABNORMALITY. Impression dictated by: Nikki Gleason M.D.12/28/2024 10:21 AM Dictation Location: [employer] Electronically authenticated by: [id number] Y Date: 12/28/2024 10:21
--- OUTSIDE RECORDS SUMMARY | 2024-12-28 08:24 | XMS_ITS | CCD ---
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 Tirso Frausto Primary Care Unavail able RecinosMarcus richard Referring Unavailable Lisbet Dr. Tirso Santos Primary Care Unavail able [...] Unavailable Tirso Frausto Primary Care Unavailable Recinos, Marcsu Admitting Unavailable Recinos, Marcus Attending Unavailable Tirso Frausto M Primary Care Unavailable Tirso Frausto MD Primary Care Provider [phone] MARCUS RECINOS Attending Unavailable TIRSO FRAUSTO Primary Care Unavailable MARCUS RECINOS Attending Unavailable MARCUS RECINOS Referring Unavailable TIRSO FRAUSTO Primary Care Unavailable Tirso Frausto MD Primary Care Provider Unavailable Primary Care Provider UnavailJOE Razo Attending Unavailable Allergies Allergy Classification Reported Allergen(s) Allergy Type Date of Onset Reaction(s) Facility (14 sources) Ciprofloxacin; Translations: [Ciprofloxacin] Drug Allergy 03-27-2022 [facility] (14 sources) Ciprofloxacin; Translations: [Cipro XR] Drug Allergy [facility] 250 DO Work Phone: (1 source) Ciprofloxacin Drug Allergy 04-19-2015 [facility] (2 sources) Ciprofloxacin; Translations: [CIPROFLOXACIN (MIXTURE)] Drug Allergy 10-14-2023 [facility] Work Phone: Medications Current Medications Medication Drug Class(es) Dates Sig (Normalized) Sig (Original) Albuterol (Eqv-Proventil HFA) 90 mcg/inh inhalation aerosol (1 source) Start: 03-02-2021 take 2 puff(s) by inhalation four times daily Albuterol (Eqv-Proventil HFA) 90 mcg/inh inhalation aerosol = 2 puff(s), Inhalation, QID, Refills(s) 0 Start Date: 03/02/21 Status: Ordered amiodarone hydrochloride 200 mg oral tablet (20 sources) Antiarrhythmic Start: 09-29-2024 take 1 tablet by mouth in the morning amiodarone (Pacerone) 200 MG tablet Take 200 mg by mouth in the morning. 09/29/2024 Active Start: 03-27-2022 End: 12-04-2023 take 1 tablet by mouth once daily amiodarone (Pacerone) 200 mg tablet Indications: Unspecified atrial flutter (CMS/HCC) TAKE 1 TABLET BY MOUTH EVERY DAY 90 tablet 1 10/14/2023 Active Start: 02-13-2022 End: 03-27-2022 take 200 [...] ascorbic acid 226 mg / beta carotene 11437 unt / cuprous oxide 0.8 mg / dl-alpha tocopheryl acetate 200 unt / zinc oxide 34.8 mg oral capsule (2 sources) Vitamin C Start: 04-16-2022 take 1 capsule by mouth once daily PreserVision AREDS oral capsule 1 cap, Oral, Daily, Prophylaxis Start Date: 04/16/22 Status: Ordered take 1 tablet by kyle th every twelve hours vitamins A,C,V-xfdg-gjdvvv (PreserVision AREDS) 2,148 mcg-113 mg-45 mg-17.4mg tablet [...] 1 Capsule Orally Twice a day Active ferrous sulfate 325 mg oral tablet (2 sources) Start: 4 take 1 tablet by mouth in the morning ferrous sulfate 325 (65 Fe) MG tablet Take 1 tablet by mouth in the morning and 1 tablet before bedtime. 10/02/2024 Active furosemide 40 mg oral tablet (20 sources) Loop Diuretic Start: 2 take 1 tablet by mouth once [...] hours or 5 pounds in 48 hours levothyroxine sodium 0.05 mg oral tablet (2 sources) l-Thyroxine take 1 tablet by mouth before mealtime levothyroxine (Synthroid, Levoxyl) 50 MCG tablet Take 50 mcg by mouth in the morning. Take before meals. Active pantoprazole 40 mg delayed release oral tablet (20 sources) Proton Pump Inhibitor Start: 01-05-20 take 40 mg by mouth once daily Pantoprazole Active 40 MG PO Daily January 20, 2022 12:00am pravastatin sodium 40 mg oral tablet (3 sources) HMG-CoA Reductase Inhibitor Start: 09-11-20 End: 09-11-20 take 1 tablet by mouth in the morning pravastatin (Pravachol) 40 MG tablet Take 40 mg by mouth in the morning. 09/11/2024 09/11/2025 Active Start: 08-21-2023 take 1 tablet by kyle th once daily pravastatin (Pravachol) 40 mg tablet [...] Spironolactone Active 12.5 MG PO Every morning January 23, 2022 9:25am take 0.5 tablet by m outh once daily spironolactone (Aldactone) 25 MG tablet TAKE 1/2 TABLET BY MOUTH EVERY DAY 90 DAYS Active tamsulosin hydrochloride 0.4 mg oral capsule (20 sources) alpha-Adrenergic Clare Start: 01-04-2021 End: 12-04-2023 take 0.4 mg by mouth once daily Tamsulosin Active 0.4 MG PO Daily January 20, 2022 12:00am Vit C,Q-Gc-Mkmmm-Lutein- Zeaxan (Preservision Areds-2) 250-90-40-1 mg Capsule (6 sources) Start: 01-20-2022 Vit C,L-Kz-Wniid-Lut ein-Zeaxan (Preservision Areds-2) 250-90-40-1 mg Capsule Active 1 TAB PO Twice daily January 20, 2022 2:13am Start: 01-20-2022 Vit C,E-Zn-Carbon Brushes Assembler oi-Ejcxhi-Tovacj (Preservision Areds-2) 250-90-40-1 mg Capsule Active 1 TAB PO Twice daily January 20, 2022 12:00am Completed/Discontinued Medications Medication Drug Class(es) Dates Sig (Normalized) Sig (Original) [id number] 200 actuat albuterol 0.09 mg/actuat metered dose [...] mg oral tablet (20 sources) Start: End: take 1 tablet by mouth once daily Pyridoxine (Vitamin B6) (Vitamin B-6) 100 mg Tablet Discontinued 100 MG PO Daily January 20, 2022 2:13am March 27, 2022 8:27am warfarin sodium 4 mg oral tablet (10 sources) Vitamin K Antagonist Start: Warfarin Sodium 4 MG Oral Tablet 1 tablet daily - being referred to [facility] to manage Quantity: 30 Refills: [...] Coronary arteriosclerosis; Translations: [Atherosclerotic heart disease of [place] coronary artery without angina pectoris] 12-04-2023 Chronic Diabetes mellitus with complications (3 sources) Type 2 diabetes mellitus with hyperglycemia; 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] Onset: 10-22-2022 Episodic Other [...] Range Facility Physician Referralon 024 Physician Referral [phone] [id number] Normal [facility] ECG 12 Leadon 12-04-2023 ECG revealed normal sinus rhythm with first-degree AV block and left axis deviation [facility] Work Phone: GLYCOHEMOGLOBIN A1Con 2022 ADA RECOMMENDATION SEE BELOW Normal [facility] Comment on above: Result Comment: ADA RECOMMENDED LIMIT 4.0 - 6.0 ADA THERAPEUTIC TARGET < 7.0 ACTION SUGGESTED > 7.0 Performed By: #### A 1C #### [facility] [address] [address] [address] Igor Hayes Glucose [Mass/Vol] 137 mg/dL Normal [facility] Comment on above: Performed By: #### A 1C #### [facility] [address] [address] [address] Igor Hayes HbA1c (Bld) [Mass fraction] 6.4 % Critically high 4.5-6.2 [facility] Comment on above: Performed By: #### A 1C #### [facility] [address] [address] [address] Igor Hayes LIPID PROFILEon 03-08-2023 CHOL-HDL RATIO NORM SEE BELOW Normal [facility] Comment on above: Result Comment: 3.3 - 4.4 LOW RISK 4.4 - 7.1 AVERAGE RISK 7.1 - 11.0 MODERATE RISK >11.0 HIGH RISK Performed By: #### A 1C #### [facility] [address] [address] [address] Igor Hayes Cholesterol [Mass/Vol] 181 mg/dL Normal <=200 [facility] Comment on above: Performed By: #### A 1C #### [facility] [address] [address] [address] Igor Hayes Cholesterol in HDL [Mass/Vol] 64 mg/dL Critically high 40-60 [facility] Comment on above: Performed By: #### A 1C #### [facility] [address] [address] [address] Igor Hayes Cholesterol in LDL [Mass/Vol] 99.2 mg/dL Normal [facility] Comment on above: Performed By: #### A 1C #### [facility] [address] [address] [address] Igor Hayes Cholesterol.total/Ch olesterol in HDL [Mass ratio] 2.8 {ratio} Normal [facility] Comment on above: Performed By: #### A 1C #### [facility] [address] [address] [address] Igor Hayes HDL NORMAL > or = 60 mg/dl - LO W CARDIOVASCULAR RISK <40 mg/dl - HIGH CARDIOVASCULAR RISK Normal [facility] Comment on above: Performed By: #### A 1C #### [facility] [address] [place] [address] Dr. Igor Hayes LDL CALC NORMAL SEE BELOW Normal [facility] Comment on above: Result Comment: <100 mg/dl OPTIMAL 100 - 129 mg/dl NEAR OR ABOVE OPTIMAL 130 - 159 mg/dl BORDERLINE HIGH 160 - 189 mg/dl HIGH >190 mg/dl VERY HIGH Performed By: #### A 1C #### [facility] [address] [place] [address] Dr. Igor Hayes Triglyceride [Mass/Vol] 89 mg/dL Normal <=150 [facility] Comment on above: Performed By: #### A 1C #### [facility] [address] [place] [address] Dr. Igor Hayes VLDL CALC 17.8 mg/dL Normal [facility] Comment on above: Performed By: #### A 1C #### [facility] [address] [place] [address] Dr. Igor Hayes INFLUENZA A AND B AGon 02-01 INFLUANEGH SEE BELOW Normal [facility] Comment on above: Result Comment: Nega tive for Flu A protein angiten. Infection due to Flu A cannot be ruled out. Flu A angiten in the sample may be below the detection limit of the test. Performed By: #### O BSCRN #### [facility] [address] [place] [address] Dr. Igor Hayes INFLUBNEGH SEE BELOW Normal [facility] Comment on above: Result Comment: Nega tive for Flu B protein antigen. Infection due to Flu B cannot be ruled out. Flu B antigen in the sample may be below the detection limit of the test. Performed By: #### O BSCRN #### [facility] [address] [place] [address] Dr. Igor Hayes INFLUENZA A AG Negative Normal NEGATIVE SEE COMMENT [facility] Comment on above: Performed By: #### O BSCRN #### [facility] [address] [place] [address] Dr. Igor Hayes INFLUENZA B AG Negative Normal NEGATIVE SEE COMMENT [facility] Comment on above: Performed By: #### O BSCRN #### [facility] [address] [place] [address] Dr. Igor Hayes SYMPTOMATIC COVID-19 ANTIGEN on 02-01-2023 EUA Statement SEE BELOW Normal [facility] Comment on above: Result Comment: [...] Performed By: #### A 1C #### [facility] [address] [place] [address] Dr. Igor Hayes SARS-CoV-2 (COVID-19) RNA VERONIQUE+probe Ql (Unsp spec) Positive Abnormal NEGATIVE [facility] Comment on above: Performed By: #### A 1C #### [facility] [address] [place] [address] Dr. Igor Hayes HEMOGLOBINon 01-10-2023 Hemoglobin (Bld) [Mass/Vol] 14.4 g/dL Normal 14.0-18.0 [facility] Comment on above: Performed By: #### H GB #### [facility] [address] [place] [address] Dr. Igor Hayes PROF CHEM 8 (BAS METB)on Anion gap [Moles/Vol] 8.4 mmol/L Normal [facility] Comment on above: Performed By: #### O BSCRN #### [facility] [address] [place] [address] Dr. Igor Hayes Calcium [Mass/Vol] 8.9 mg/dL Normal 8.5-10.1 [facility] Comment on above: Performed By: #### O BSCRN #### [facility] [address] [address] [address] Igor Hayes Chloride [Moles/Vol] 103 mmol/L Normal 98-107 [facility] Comment on above: Performed By: #### O BSCRN #### [facility] [address] [address] [address] Igor Hayes CO2 [Moles/Vol] 31.2 mmol/L Normal 21.0-32.0 [facility] Comment on above: Performed By: #### O BSCRN #### [facility] [address] [place] [address] Dr. Igor Hayes Creatinine [Mass/Vol] 1.02 mg/dL Normal 0.70-1.30 [facility] Comment on above: Performed By: #### O BSCRN #### [facility] [address] [address] [address] Igor Hayes EGFR-AF GABONESE >60 Normal >=60 [facility] Comment on above: Performed By: #### O BSCRN #### [facility] [address] [place] [address] Dr. Igor Hayes EGFR-NON AF GABONESE >60 Normal >=60 [facility] Comment on above: Performed By: #### O BSCRN #### [facility] [address] [address] [address] Igor Hayes Glucose [Mass/Vol] 133 mg/dL Critically high 74-106 [facility] Comment on above: Performed By: #### O BSCRN #### [facility] [address] [address] [address] Igor Hayes Potassium [Moles/Vol] 4.6 mmol/L Normal 3.5-5.1 [facility] Comment on above: Performed By: #### O BSCRN #### [facility] [address] [place] [address] Dr. Igor Hayes Sodium [Moles/Vol] 138 mmol/L Normal 136-145 [facility] Comment on above: Performed By: #### O BSCRN #### [facility] [address] [place] [address] Dr. Igor Hayes Urea nitrogen [Mass/Vol] 17.0 mg/dL Normal 7.0-18.0 [facility] Comment on above: Performed By: #### O BSCRN #### [facility] [address] [place] [address] Dr. Igor Hayes Urea nitrogen/Creatinine [Mass ratio] 16.7 mg/mg Normal [facility] Comment on above: Performed By: #### O BSCRN #### [facility] [address] [place] [address] Dr. Igor Hayes SGOTon 01-10-2023 AST [Catalytic activity/Vol] 36 U/L Normal 15-37 [facility] Comment on above: Performed By: #### O BSCRN #### [facility] [address] [place] [address] Dr. Igor Hayes TSHon 01-10-2023 TSH 4.230 uIU/mL Critically high 0.358-3.74 0 [facility] Comment on above: Performed By: #### O BSCRN #### [facility] [address] [place] [address] Dr. Igor Hayes XR CHEST 2 Von [...] by: DEE BARTON Date: 2023-01-10 13:02 Normal [facility] Prothrombin Time INRon 01-01 INR Coag (PPP) [Relative time] 2.9 {INR} [place] Other Prothrombin Time INR [place] Other Prothrombin Time INRon 12-10 INR Coag (PPP) [Relative time] 2.7 {INR} [facility] 11 Other Prothrombin Time INR [place] Other Prothrombin Time INRon 11-26 INR Coag (PPP) [Relative time] 2.6 {INR} [facility] 11 Other Prothrombin Time INR [place] Other Prothrombin Time INRon 11-15 INR Coag (PPP) [Relative time] 3.2 {INR} [facility] 11 Other Prothrombin Time [facility]R [facility] Other LIPID PROFILEon 11-14-2022 CHOL-HDL RATIO NORM SEE BELOW Normal [facility] Comment on above: Result Comment: 3.3 - 4.4 LOW RISK 4.4 - 7.1 AVERAGE RISK 7.1 - 11.0 MODERATE RISK >11.0 HIGH RISK Performed By: #### O BSCRN #### [facility] [address] [address] [address] Igor Hayes Cholesterol [Mass/Vol] 186 mg/dL Normal <=200 [facility] Comment on above: Performed By: #### O BSCRN #### [facility] [address] [address] [address] Igor Hayes Cholesterol in HDL [Mass/Vol] 64 mg/dL Critically high 40-60 [facility] Comment on above: Performed By: #### O BSCRN #### [facility] [address] [address] [address] Igor Hayes Cholesterol in LDL [Mass/Vol] 99.0 mg/dL Normal [facility] Comment on above: Performed By: #### O BSCRN #### [facility] [address] [address] [address] Igor Hayes Cholesterol.total/Ch olesterol in HDL [Mass ratio] 2.9 {ratio} Normal [facility] Comment on above: Performed By: #### O BSCRN #### [facility] [address] [address] [address] Igor Hayes HDL NORMAL > or = 60 mg/dl - LO W CARDIOVASCULAR RISK <40 mg/dl - HIGH CARDIOVASCULAR RISK Normal [facility] Comment on above: Performed By: #### O BSCRN #### [facility] [address] [address] [address] Igor Hayes LDL CALC NORMAL SEE BELOW Normal [facility] Comment on above: Result Comment: <100 mg/dl OPTIMAL 100 - 129 mg/dl NEAR OR ABOVE OPTIMAL 130 - 159 mg/dl BORDERLINE HIGH 160 - 189 mg/dl HIGH >190 mg/dl VERY HIGH Performed By: #### O BSCRN #### [facility] [address] [address] [address] Igor Hayes Triglyceride [Mass/Vol] 115 mg/dL Normal <=150 [facility] Comment on above: Performed By: #### O BSCRN #### [facility] [address] [address] [address] Igor Hayes VLDL CALC 23.0 mg/dL Normal [facility] Comment on above: Performed By: #### O BSCRN #### [facility] [address] [address] [address] Igor Hayes Tobacco Screening.on 023 Adult depression screening assessment No [facility] 250 DO Work Phone: Fall risk assessment a) No falls within the last year [facility] 250 DO Work Phone: Tobacco use status [facility] b) No [facility] 250 DO Work Phone: AMMONIAon 11-02-2022 Ammonia (P) [Moles/Vol] 12 umol/L Normal [facility] Comment on above: Performed By: #### A 1C #### [facility] [address] [address] [address] Igor Hayes PROF 14(COMP METB)on 022 Albumin [Mass/Vol] 3.9 g/dL Normal 3.4-5.0 [facility] Comment on above: Performed By: #### A 1C #### [facility] [address] [address] [address] Igor Hayes Albumin/Globulin [Mass ratio] 1.1 {ratio} Normal [facility] Comment on above: Performed By: #### A 1C #### [facility] [address] [address] [address] Igor Hayes ALP [Catalytic activity/Vol] 48 U/L Normal 46-116 [facility] Comment on above: Performed By: #### A 1C #### [facility] [address] [address] [address] Igor Hayes ALT [Catalytic activity/Vol] 70 U/L Critically high 16-63 [facility] Comment on above: Performed By: #### A 1C #### [facility] [address] [place] [address] Dr. Igor Hayes Anion gap [Moles/Vol] 13.5 mmol/L Normal [facility] Comment on above: Performed By: #### A 1C #### [facility] [address] [place] [address] Dr. Igor Hayes AST [Catalytic activity/Vol] 41 U/L Critically high 15-37 [facility] Comment on above: Performed By: #### A 1C #### [facility] [address] [place] [address] Dr. Igor Hayes Bilirubin [Mass/Vol] 0.6 mg/dL Normal 0.2-1.0 [facility] Comment on above: Performed By: #### A 1C #### [facility] [address] [place] [address] Dr. Igor Haeys Calcium [Mass/Vol] 9.0 mg/dL Normal 8.5-10.1 [facility] Comment on above: Performed By: #### A 1C #### [facility] [address] [address] [address] Igor Hayes Chloride [Moles/Vol] 102 mmol/L Normal 98-107 [facility] Comment on above: Performed By: #### A 1C #### [facility] [address] [address] [address] Igor Hayes CO2 [Moles/Vol] 28.9 mmol/L Normal 21.0-32.0 [facility] Comment on above: Performed By: #### A 1C #### [facility] [address] [address] [address] Igor Hayes Creatinine [Mass/Vol] 1.14 mg/dL Normal 0.70-1.30 [facility] Comment on above: Performed By: #### A 1C #### [facility] [address] [address] [address] Igor Hayes EGFR-AF GABONESE >60 Normal >=60 [facility] Comment on above: Performed By: #### A 1C #### [facility] [address] [place] [address] Dr. Igor Hayes EGFR-NON AF GABONESE >60 Normal >=60 [facility] Comment on above: Performed By: #### A 1C #### [facility] [address] [place] [address] Dr. Igor Hayes Globulin (S) [Mass/Vol] 3.7 g/dL Normal [facility] Comment on above: Performed By: #### A 1C #### [facility] [address] [place] [address] Dr. Igor Hayes Glucose [Mass/Vol] 166 mg/dL Critically high 74-106 [facility] Comment on above: Performed By: #### A 1C #### [facility] [address] [address] [address] Igor Hayes Potassium [Moles/Vol] 4.4 mmol/L Normal 3.5-5.1 [facility] Comment on above: Performed By: #### A 1C #### [facility] [address] [place] [address] Dr. Igor Hayes Protein [Mass/Vol] 7.6 g/dL Normal 6.4-8.2 [facility] Comment on above: Performed By: #### A 1C #### [facility] [address] [place] [address] Dr. Igor Hayes Sodium [Moles/Vol] 140 mmol/L Normal 136-145 [facility] Comment on above: Performed By: #### A 1C #### [facility] [address] [place] [address] Dr. Igor Hayes Urea nitrogen [Mass/Vol] 18.0 mg/dL Normal 7.0-18.0 [facility] Comment on above: Performed By: #### A 1C #### [facility] [address] [place] [address] Dr. Igor Hayes Urea nitrogen/Creatinine [Mass ratio] 15.8 mg/mg Normal [facility] Comment on above: Performed By: #### A 1C #### [facility] [address] [place] [address] Dr. Igor Hayes HEMOGLOBINon 10-22-2022 Hemoglobin (Bld) [Mass/Vol] 15.3 g/dL Normal 14.0-18.0 [facility] Comment on above: Performed By: #### A 1C #### [facility] [address] [place] [address] Dr. Igor Hayes PROF CHEM 8 (BAS METB)on Anion gap [Moles/Vol] 12.9 mmol/L Normal [facility] Comment on above: Performed By: #### A ST, BMP, TSH #### [facility] [address] [place] [address] Dr. Igor Hayes Calcium [Mass/Vol] 9.2 mg/dL Normal 8.5-10.1 [facility] Comment on above: Performed By: #### A ST, BMP, TSH #### [facility] [address] [place] [address] Dr. Igor Hayes Chloride [Moles/Vol] 103 mmol/L Normal 98-107 [facility] Comment on above: Performed By: #### A ST, BMP, TSH #### [facility] [address] [place] [address] Dr. Igor Hayes CO2 [Moles/Vol] 29.7 mmol/L Normal 21.0-32.0 [facility] Comment on above: Performed By: #### A ST, BMP, TSH #### [facility] [address] [address] [address] Igor Hayes Creatinine [Mass/Vol] 1.16 mg/dL Normal 0.70-1.30 [facility] Comment on above: Performed By: #### A ST, BMP, TSH #### [facility] [address] [address] [address] Igor Hayes EGFR-AF GABONESE >60 Normal >=60 [facility] Comment on above: Performed By: #### A ST, BMP, TSH #### [facility] [address] [address] [address] Igor Hayes EGFR-NON AF GABONESE >60 Normal >=60 [facility] Comment on above: Performed By: #### A ST, BMP, TSH #### [facility] [address] [address] [address] Igor Hayes Glucose [Mass/Vol] 125 mg/dL Critically high 74-106 [facility] Comment on above: Performed By: #### A ST, BMP, TSH #### [facility] [address] [address] [address] Igor Hayes Potassium [Moles/Vol] 4.6 mmol/L Normal 3.5-5.1 [facility] Comment on above: Performed By: #### A ST, BMP, TSH #### [facility] [address] [address] [address] Igor Hayes Sodium [Moles/Vol] 141 mmol/L Normal 136-145 [facility] Comment on above: Performed By: #### A ST, BMP, TSH #### [facility] [address] [address] [address] Igor Hayes Urea nitrogen [Mass/Vol] 17.0 mg/dL Normal 7.0-18.0 [facility] Comment on above: Performed By: #### A ST, BMP, TSH #### [facility] [address] [address] [address] Igor Hayes Urea nitrogen/Creatinine [Mass ratio] 14.7 mg/mg Normal [facility] Comment on above: Performed By: #### A ST, BMP, TSH #### [facility] Laboratory [address] [place], [place] [address] Dr. Igor Hayes SGOTon 10-22-2022 AST [Catalytic activity/Vol] 49 U/L Critically high 15-37 [facility] Comment on above: Performed By: #### A ST, BMP, TSH #### [facility] [id number] Igor Hayes TSHon 10-22-2022 TSH 4.171 uIU/mL Critically high 0.358-3.74 0 [facility] Comment on above: Performed By: #### A ST, BMP, TSH #### [facility] [id number] Igor Hayes US SINGLE QUAD RT [...] quadrant was unremarkable. Electronically authenticated by: STANFORD GARCÍA Date: 2022-10-22 20:43 Normal [facility] XR CHEST 2 Von 10-22-2022 XR CHEST 2 V EXAM: Chest x-ray HISTORY: Atrial flutter COMPARISON: 01/19/2022 TECHNIQUE: Frontal and lateral chest FINDINGS: Heart and vascularity are unremarkable. Lungs are expanded and free of focal infiltrates. Tortuosity of the thoracic aorta is noted. Spondylosis of the spine is noted. IMPRESSION: No acute heart or lung disease identified. Electronically authenticated by: STANFORD Granados: 2022-10-22 20:38 Normal [facility] INSULINon 10-10-2022 Insulin 19.8 uIU/mL Normal 2.6-24.9 [facility] Comment on above: Performed By: #### A 1C #### [facility] [address] [place] [address] Dr. Igor Hayes CBC AUTO DIFFon 10-09-2022 BASO # 0.1 103/ul Normal 0.0-0.1 [facility] Comment on above: Performed By: #### A 1C #### [facility] [address] [place] [address] Dr. Igor Hayes Basophils/100 WBC (Bld) 1.7 % Normal 0.2-2.0 [facility] Comment on above: Performed By: #### A 1C #### [facility] [address] [place] [address] Dr. Igor Hayes EO # 0.2 103/ul Normal 0.0-0.7 [facility] Comment on above: Performed By: #### A 1C #### [facility] [address] [place] [address] Dr. Igor Hayes Eosinophils/100 WBC (Bld) 3.1 % Normal 0.9-7.0 [facility] Comment on above: Performed By: #### A 1C #### [facility] [address] [place] [address] Dr. Igor Hayes Erythrocyte distribution width (RBC) [Ratio] 12.9 % Normal 11.0-15.0 [facility] Comment on above: Performed By: #### A 1C #### [facility] [address] [place] [address] Dr. Igor Hayes Hematocrit (Bld) [Volume fraction] 45.5 % Normal 42.0-54.0 [facility] Comment on above: Performed By: #### A 1C #### [facility] [address] [place] [address] Dr. Igor Hayes Hemoglobin (Bld) [Mass/Vol] 15.1 g/dL Normal 14.0-18.0 [facility] Comment on above: Performed By: #### A 1C #### [facility] [address] [place] [address] Dr. Igor Hayes IG # 0.01 10e3/ul Normal 0.00-0.03 [facility] Comment on above: Performed By: #### A 1C #### [facility] [address] [place] [address] Dr. Igor Hayes IG % 0.2 % Normal 0.0-0.5 [facility] Comment on above: Performed By: #### A 1C #### [facility] [address] [place] [address] Dr. Igor Hayes LYMPH # 1.2 103/ul Normal 1.2-3.8 [facility] Comment on above: Performed By: #### A 1C #### [facility] [address] [place] [address] Dr. Igor Hayes Lymphocytes/100 WBC (Bld) 23.9 % Normal 20.5-60.0 [facility] Comment on above: Performed By: #### A 1C #### [facility] [address] [place] [address] Dr. Igor Hayes MANUAL DIFF REQ NO Normal [facility] Comment on above: Performed By: #### A 1C #### [facility] [address] [place] [address] Dr. Igor Hayes MCH (RBC) [Entitic mass] 29.3 pg Normal 25.9-34.0 [facility] Comment on above: Performed By: #### A 1C #### [facility] [address] [place] [address] Dr. Igor Hayes MCHC (RBC) [Mass/Vol] 33.2 g/dL Normal 29.9-35.2 [facility] Comment on above: Performed By: #### A 1C #### [facility] [address] [place] [address] Dr. Igor Hayes MCV (RBC) [Entitic vol] 88.2 fL Normal 80.0-94.0 [facility] Comment on above: Performed By: #### A 1C #### [facility] [address] [place] [address] Dr. Igor Hayes MONO # 0.6 103/ul Normal 0.3-0.8 [facility] Comment on above: Performed By: #### A 1C #### [facility] [address] [place] [address] Dr. Igor Hayes Monocytes/100 WBC (Bld) 12.3 % Critically high 1.7-12.0 [facility] Comment on above: Performed By: #### A 1C #### [facility] [address] [place] [address] Dr. Igor Hayes NEUT # 3.1 103/ul Normal 1.4-6.5 [facility] Comment on above: Performed By: #### A 1C #### [facility] [address] [place] [address] Dr. Igor Hayes Neutrophils/100 WBC (Bld) 58.8 % Normal 43.0-75.0 [facility] Comment on above: Performed By: #### A 1C #### [facility] [address] [place] [address] Dr. Igor Hayes Platelet mean volume (Bld) [Entitic vol] 10.0 fL Normal 9.5-13.5 [facility] Comment on above: Performed By: #### A 1C #### [facility] [address] [place] [address] Dr. Igor Hayes PLT 234 103/ul Normal 150-450 [facility] Comment on above: Performed By: #### A 1C #### [facility] [address] [place] [address] Dr. Igor Hayes RBC 5.16 106/ul Normal 4.70-6.10 [facility] Comment on above: Performed By: #### A 1C #### [facility] [address] [place] [address] Dr. Igor Hayes WBC 5.2 103/ul Normal 4.0-11.0 [facility] Comment on above: Performed By: #### A 1C #### [facility] [address] [place] [address] Dr. Igor Hayes GLYCOHEMOGLOBIN A1Con 2021 ADA RECOMMENDATION SEE BELOW Normal [facility] Comment on above: Result Comment: ADA RECOMMENDED LIMIT 4.0 - 6.0 ADA THERAPEUTIC TARGET < 7.0 ACTION SUGGESTED > 7.0 Performed By: #### A 1C #### [facility] [address] [place] [address] [address] Igor Hayes Glucose [Mass/Vol] 123 mg/dL Normal [facility] Comment on above: Performed By: #### A 1C #### [facility] [address] [place] [address] [address] Igor Hayes HbA1c (Bld) [Mass fraction] 5.9 % Normal 4.5-6.2 [facility] Comment on above: Performed By: #### A 1C #### [facility] [address] [place] [address] Dr. Igor Hayes OCC BLD IMMUNO SCREENon OCCULT BLOOD Negative Normal NEGATIVE [facility] Comment on above: Performed By: #### O BSCRN #### [facility] [address] [place] [address] Dr. Igor Hayes PROF 14(COMP METB)on 022 Albumin [Mass/Vol] 3.9 g/dL Normal 3.4-5.0 [facility] Comment on above: Performed By: #### U THUY, CMP #### [facility] [address] [place] [address] Dr. Igor Hayes Albumin/Globulin [Mass ratio] 1.0 {ratio} Normal [facility] Comment on above: Performed By: #### U THUY, CMP #### [facility] [address] [place] [address] Dr. Igor Hayes ALP [Catalytic activity/Vol] 45 U/L Critically low 46-116 [facility] Comment on above: Performed By: #### U THUY, CMP #### [facility] [address] [place] [address] Dr. Igor Hayes ALT [Catalytic activity/Vol] 83 U/L Critically high 16-63 [facility] Comment on above: Performed By: #### U THUY, CMP #### [facility] [address] [place] [address] [address] Igor Hayes Anion gap [Moles/Vol] 11.6 mmol/L Normal [facility] Comment on above: Performed By: #### U THUY, CMP #### [facility] [address] [place] [address] [address] Igor Hayes AST [Catalytic activity/Vol] 44 U/L Critically high 15-37 [facility] Comment on above: Performed By: #### U THUY, CMP #### [facility] [address] [place] [address] [address] Igor Hayes Bilirubin [Mass/Vol] 0.7 mg/dL Normal 0.2-1.0 [facility] Comment on above: Performed By: #### U THUY, CMP #### [facility] [address] [place] [address] [address] Igor Hayes Calcium [Mass/Vol] 8.8 mg/dL Normal 8.5-10.1 [facility] Comment on above: Performed By: #### U THUY, CMP #### [facility] [address] [address] [address] Igor Hayes Chloride [Moles/Vol] 102 mmol/L Normal 98-107 [facility] Comment on above: Performed By: #### U THUY, CMP #### [facility] [address] [place] [address] [address] Igor Hayes CO2 [Moles/Vol] 29.1 mmol/L Normal 21.0-32.0 [facility] Comment on above: Performed By: #### U THUY, CMP #### [facility] [address] [address] [address] Igor Hayes Creatinine [Mass/Vol] 1.02 mg/dL Normal 0.70-1.30 [facility] Comment on above: Performed By: #### U THUY, CMP #### [facility] [address] [address] [address] Igor Hayes EGFR-AF GABONESE >60 Normal >=60 [facility] Comment on above: Performed By: #### U THUY, CMP #### [facility] [address] [address] [address] Igor aHyes EGFR-NON AF GABONESE >60 Normal >=60 [facility] Comment on above: Performed By: #### U THUY, CMP #### [facility] [address] [address] [address] Igor Hayes Globulin (S) [Mass/Vol] 3.9 g/dL Normal [facility] Comment on above: Performed By: #### U THUY, CMP #### [facility] [address] [address] [address] Igor Hayes Glucose [Mass/Vol] 132 mg/dL Critically high 74-106 [facility] Comment on above: Performed By: #### U THUY, CMP #### [facility] [address] [place] [address] [address] Igor Hayes Potassium [Moles/Vol] 4.7 mmol/L Normal 3.5-5.1 [facility] Comment on above: Performed By: #### U THUY, CMP #### [facility] [address] [address] [address] Igor Hayes Protein [Mass/Vol] 7.8 g/dL Normal 6.4-8.2 [facility] Comment on above: Performed By: #### U THUY, CMP #### [facility] [address] [address] [address] Igor Hayes Sodium [Moles/Vol] 138 mmol/L Normal 136-145 [facility] Comment on above: Performed By: #### U THUY, CMP #### [facility] [address] [address] [address] Igor Hayes Urea nitrogen [Mass/Vol] 16.0 mg/dL Normal 7.0-18.0 [facility] Comment on above: Performed By: #### U THUY, CMP #### [facility] [address] [address] [address] Igor Hayes Urea nitrogen/Creatinine [Mass ratio] 15.7 mg/mg Normal [facility] Comment on above: Performed By: #### U THUY, CMP #### [facility] [address] [place], [place] [address] Dr. Igor Hayes URIC ACID SERUMon 10-09-2022 Urate [Mass/Vol] 4.9 mg/dL Normal 3.5-7.2 [facility] Comment on above: Performed By: #### U THUY, CMP #### [facility] [address] [place] [address] [address] Igor Hayes Aspartate Amino Transferaseo n 07-30-2022 AST [Catalytic activity/Vol] 44 U/L High 10-42 [facility] Comment on above: Order Comment: PT FA STED 12 HRS Performed By: #### T SH3, BMP, AST #### [facility] [address] Basic Metabolic Panelon 07-06 Anion gap [Moles/Vol] 13.1 mmol/L Normal 6.0-15.0 [facility] Comment on above: Order Comment: PT FA STED 12 HRS Performed By: #### T SH3, BMP, AST #### [facility] [address] [place] [address] [place] Calcium [Mass/Vol] 9.4 mg/dL Normal 8.2-10.2 [facility] Comment on above: Order Comment: PT FA STED 12 HRS Performed By: #### T SH3, BMP, AST #### [facility] [address] [place] [id number] [place] Chloride [Moles/Vol] 101 mmol/L Normal 95-114 [facility] Comment on above: Order Comment: PT FA STED 12 HRS Performed By: #### T SH3, BMP, AST #### [facility] [address] [place] [id number] [place] CO2 [Moles/Vol] 27.5 mmol/L Normal 22.0-30.0 [facility] Comment on above: Order Comment: PT FA STED 12 HRS Performed By: #### T SH3, BMP, AST #### [facility] [address] [place] [id number] [place] Creatinine [Mass/Vol] 1.03 mg/dL Normal 0.64-1.27 [facility] Comment on above: Order Comment: PT FA STED 12 HRS Performed By: #### T SH3, BMP, AST #### [facility] [address] [place] [id number] [place] Estimated GFR ( Mary > 60 Normal [facility] Comment on above: Order Comment: PT FA STED 12 HRS Result Comment: GFR estimated reference range: According to KDOQI guidelines, <60 ml/min/1.73m2 is sufficient to diagnose a patient with chronic kidney disease. Performed By: #### T SH3, BMP, AST #### [facility] [address] [place] [id number] [place] Estimated GFR (Non- Am > 60 Normal [facility] Comment on above: Order Comment: PT FA STED 12 HRS Performed By: #### T SH3, BMP, AST #### [facility] [address] [place] [id number] [place] Glucose [Mass/Vol] 111 mg/dL High 70-100 [facility] Comment on above: Order Comment: PT FA STED 12 HRS Result Comment: [place] om Glucose Reference Range is dependent on time and content of last meal. Glucose of more than 200 mg/dL in a nonstressed, ambulatory subject supports the diagnosis of Diabetes Mellitus. ADA recommended reference range Performed By: #### T SH3, BMP, AST #### [facility] [address] [place] [id number] [place] Potassium [Moles/Vol] 4.6 mmol/L Normal 3.5-5.1 [facility] Comment on above: Order Comment: PT FA STED 12 HRS Performed By: #### T SH3, BMP, AST #### [facility] [address] [place] [id number] [place] Sodium [Moles/Vol] 137 mmol/L Normal 136-146 [facility] Comment on above: Order Comment: PT FA STED 12 HRS Performed By: #### T SH3, BMP, AST #### [facility] [address] [place] [id number] [place] Urea nitrogen [Mass/Vol] 15 mg/dL Normal 9-23 [facility] Comment on above: Order Comment: PT FA STED 12 HRS Performed By: #### T SH3, BMP, AST #### [facility] [address] No Panel Informationon 07-30 13.1\S\13.1 Normal 6.0-15.0 [facility] y 250 DO Work Phone: [phone] 9.4\S\9.4 Normal 8.2-10.2 [facility] HeartAna y 250 DO Work Phone: [phone] 27.5\S\27.5 Normal 22.0-30.0 [facility]Cyndi y 250 DO Work Phone: [phone] 101\S\101 Normal 95-114 [facility] Work Phone: [phone] 4.6\S\4.6 Normal 3.5-5.1 [facility] 250 DO Work Phone: [phone] 137\S\137 Normal 136-146 [facility] 250 DO Work Phone: [phone] > 60 Normal [facility] 250 DO Work Phone: Comment on above: GFR estimated refere nce range: According to KDOQI guidelines, <60 ml/min/1.73m2 is sufficient to diagnose a patient with chronic kidney disease. 1.03\S\1.03 Normal 0.64-1.27 [facility] DO Work Phone: [phone] 15\S\15 Normal 9-23 [facility] Work Phone: [phone] 111\S\111 above high threshold 70-100 [facility] DO Work Phone: [phone] Comment on above: Random Glucose Refer ence Range is dependent on time and content of last meal. Glucose of more than 200 mg/dL in a nonstressed, ambulatory subject supports the diagnosis of Diabetes Mellitus. ADA recommended reference range 44\S\44 above high threshold 10-42 -[place] [facility] 250 DO Work Phone: 3.34\S\3.34 Normal 0.45-5.33 -[facility] y 250 DO Work Phone: Comment on above: PERFORMED BY:[facility] [place], [place] [id number] MEDICAL DIRECTORSTEVEN NASH M.D. Radiologyon 07-30-2022 XR Chest 2 Views Normal [facility] 250 DO Work Phone: Thyroid Stimulating Hormoneo n 07-30-2022 TSH Qn 3.34 m[IU]/L Normal 0.45-5.33 [facility] Comment on above: Order Comment: PT FA STED 12 HRS Result Comment: PERF ORMED BY: [facility] [address] [place] [id number] PATHOLOGIST PONY EDGER TSEVEN NASH M.D. Performed By: #### T SH3, BMP, AST #### [place] [address] [place] XR chest 2V*on 07-30-2022 XR chest 2V* [facility] [place] [address] [place] [address] XRay Report Signed Patient: Remedios Magaña MR#: [id number] 4 : 1955 Acct:[id number] Age/Sex: 66 / M ADM Date: 07/30/22 Loc: RT Room: Type: [facility] Attending Dr: Marcus Recinos MD Copies to: Marcus Recinos MD, [facility] Ordering Provider: Marcus Recinos MD, [facility] Date of Service: 07/30/22 XR/XR chest 2V*: Z79.899, I48.92 Chest 2 views CLINICAL HISTORY: High risk medication use. COMPARISON: Chest 04/26/2022 FINDINGS: Heart is normal in size. Lungs are clear. No free air. XR/XR chest 2V* IMPRESSION: NO ACUTE CARDIOPULMONARY ABNORMALITY. Impression dictated by: Walt Miller Jr., D.O.07/30/2022 1:46 PM Dictation Location: [place] [address] Transcribed By: [facility] 07/30/22 134 Dictated By: Walt Miller Jr, DO 07/30/22 1346 Signed By: 07/30/22 1346 Normal [facility] Aspartate Amino Transferaseo n 04-26-2022 AST [Catalytic activity/Vol] 46 U/L High 10-42 [facility] Comment on above: Performed By: #### T SH3, AST, BMP #### [facility] [address] Basic Metabolic Panelon 04-05 Calcium [Mass/Vol] 9.5 mg/dL Normal 8.2-10.2 [facility] Comment on above: Performed By: #### T SH3, AST, BMP #### [facility] [address] Chloride [Moles/Vol] 101 mmol/L Normal 95-114 [facility] Comment on above: Performed By: #### T SH3, AST, BMP #### [facility] [address] CO2 [Moles/Vol] 26.8 mmol/L Normal 22.0-30.0 [facility] Comment on above: Performed By: #### T SH3, AST, BMP #### [facility] [address] [place] [address] [place] Creatinine [Mass/Vol] 1.05 mg/dL Normal 0.64-1.27 [facility] Comment on above: Performed By: #### T SH3, AST, BMP #### [facility] [address] [place] [address] [place] Estimated GFR ( Mary > 60 Normal [facility] Comment on above: Result Comment: GFR estimated reference range: According to KDOQI guidelines, <60 ml/min/1.73m2 is sufficient to diagnose a patient with chronic kidney disease. Performed By: #### T SH3, AST, BMP #### [facility] [address] [place] [address] [place] Estimated GFR (Non- Am > 60 Normal [facility] Comment on above: Performed By: #### T SH3, AST, BMP #### [facility] [address] [place] [id number] [place] Glucose [Mass/Vol] 123 mg/dL High 70-100 [facility] Comment on above: Result Comment: [place] Glucose Reference Range is dependent on time and content of last meal. Glucose of more than 200 mg/dL in a nonstressed, ambulatory subject supports the diagnosis of Diabetes Mellitus. ADA recommended reference range Performed By: #### T SH3, AST, BMP #### [facility] [address] [place] [id number] [facility] Potassium [Moles/Vol] 4.9 mmol/L Normal 3.5-5.1 [facility] Comment on above: Performed By: #### T SH3, AST, BMP #### [facility] [address] [place] [id number] [place] Sodium [Moles/Vol] 138 mmol/L Normal 136-146 [facility] Comment on above: Performed By: #### T SH3, AST, BMP #### [facility] [address] [place] [id number] [place] Urea nitrogen [Mass/Vol] 16 mg/dL Normal 9-23 [facility] Comment on above: Performed By: #### T SH3, AST, BMP #### [facility] [address] [place] [id number] [place] Creatinine and Glomerular fi ltration rate.predicted panel (S/P/Bld)Ordered By: Marcus Recinos on 04-26-2022 Creatinine [Mass/Vol] 1.05 mg/dL 0.64-1.27 [facility] Estimated glomerular filtrat ion rate (GFR) non- AmericanOrdered By: Marcus Recinos on 04-26-2022 GFR/1.73 sq M.predicted among non-blacks MDRD (S/P/Bld) [Vol rate/Area] > 60 mL/Min [facility] No Panel InformationOrdered By: Marcus Recinos on 04-26-2022 Estimated GFR () > 60 mL/Min [facility] Comment on above: GFR estimated refere nce range: According to KDOQI guidelines, <60 ml/min/1.73m2 is sufficient to diagnose a patient with chronic kidney disease. Pharmacy Creatinine Clearance (Chem N/A [facility] No Panel Informationon 04-26 9.5\S\9.5 Normal 8.2-10.2 [facility]-Cyndi y 250 DO Work Phone: [phone] 26.8\S\26.8 Normal 22.0-30.0 [facility] Heart[facility]a y 250 DO Work Phone: [phone] 101\S\101 Normal 95-114 [facility] DO Work Phone: [phone] 4.9\S\4.9 Normal 3.5-5.1 [facility] Katei y 250 DO Work Phone: [phone] 138\S\138 Normal 136-146 [facility] 250 DO Work Phone: > 60 Normal [facility] 250 DO Work Phone: Comment on above: GFR estimated refere nce range: According to KDOQI guidelines, <60 ml/min/1.73m2 is sufficient to diagnose a patient with chronic kidney disease. 1.05\S\1.05 Normal 0.64-1.27 [facility] 250 DO Work Phone: [phone] 16\S\16 Normal 9-23 [facility] DO Work Phone: [phone] 123\S\123 above high threshold 70-100 [facility] 250 DO Work Phone: Comment on above: Random Glucose Refer ence Range is dependent on time and content of last meal. Glucose of more than 200 mg/dL in a nonstressed, ambulatory subject supports the diagnosis of Diabetes Mellitus. ADA recommended reference range 46\S\46 above high threshold 10-42 [facility] 250 DO Work Phone: 4.75\S\4.75 Normal 0.45-5.33 [facility] 250 DO Work Phone: Comment on above: PERFORMED BY:[facility] [place], [place] [id number] MEDICAL DIRECTORSTEVEN NASH M.D. Radiologyon 04-26-2022 XR Chest 2 Views Normal [facility] 250 DO Work Phone: Serum or plasma aspartate am inotransferase measurement (enzymatic activity/volume)Ordered By: Marcus Recinos on 04-26-2022 AST [Catalytic activity/Vol] 46 U/L 10-42 [facility] Serum or plasma calcium tiera urement (mass/volume)Ordered By: Marcus Recinos on 04-26-2022 Calcium [Mass/Vol] 9.5 mg/dL 8.2-10.2 [facility] Serum or plasma chloride marly surement (moles/volume)Ordered By: Marcus Recinos on 04-26-2022 Chloride [Moles/Vol] 101 mmol/L 95-114 [facility] Serum or plasma glucose tiera urement (mass/volume)Ordered By: Marcus Recinos on 04-26-2022 Glucose [Mass/Vol] 123 mg/dL 70-100 [facility] Comment on above: ADA recommended refe rence range Random Glucose Reference Range is dependent on time and content of last meal. Glucose of more than 200 mg/dL in a nonstressed, ambulatory subject supports the diagnosis of Diabetes Mellitus. Serum or plasma potassium me asurement (moles/volume)Ordered By: Marcus Recinos on 04-26-2022 Potassium [Moles/Vol] 4.9 mmol/L 3.5-5.1 [facility] Serum or plasma sodium measu rement (moles/volume)Ordered By: Marcus Recinos on 04-26-2022 Sodium [Moles/Vol] 138 mmol/L 136-146 [facility] Serum or plasma total carbon dioxide measurement (moles/volume)Ordered By: Marcus Recinos on 04-26-2022 CO2 [Moles/Vol] 26.8 mmol/L 22.0-30.0 [facility] Serum or plasma urea nitroge n measurement (mass/volume)Ordered By: Marcus Recinos on 04-26-2022 Urea nitrogen [Mass/Vol] 16 mg/dL 07-27 [facility] TSH DL <= 0.005 mIU/L QnOrde red By: Marcus Recinos on 04-26-2022 TSH Qn 4.75 m[IU]/L 0.45-5.33 [facility] Thyroid Stimulating Hormoneo n 04-26-2022 TSH Qn 4.75 m[IU]/L Normal 0.45-5.33 [facility] Comment on above: Result Comment: PERF ORMED BY: [place] [address] PATHOLOGIST PONY EDGER STEVEN NASH M.D. Performed By: #### T SH3, AST, BMP #### [address] XR chest 2V*on 04-26-2022 XR chest 2V* [facility] [place] [address] [place] [address] XRay Report Signed Patient: Remedios Magaña MR#: [id number] 4 : 1955 Acct:[id number] Age/Sex: 66 / M ADM Date: 04/26/22 Loc: RT Room: Type: [facility] Attending Dr: Marcus Recinos MD Copies to: Marcus Recinos MD, [facility] Ordering Provider: Marcus Recinos MD, [facility] Date of Service: 04/26/22 XR/XR chest 2V*: I48.92,Z79.899 PA AND LATERAL CHEST: CLINICAL HISTORY: A. Fib. longterm medication use. COMPARISON: Chest 01/21/2022 FINDINGS: Heart is normal in size. Lungs are clear. No free air. Osseous structures demonstrate degenerative change. XR/XR chest 2V* IMPRESSION: NO ACUTE CARDIOPULMONARY ABNORMALITY. Impression dictated by: Walt Miller Jr., D.O.04/26/2022 1:38 PM Dictation Location: [place] [address] Transcribed By: [facility] 04/26/22 133 Dictated By: Walt Miller Jr, DO 04/26/22 133 Signed By: 04/26/22 133 [facility] Office Visit (Cardiology)on 04-24-2022 Follow-up [...] Screening.on 022 Adult depression screening assessment No [facility] 250 DO Work Phone: Fall risk assessment a) No falls within the last year [facility] CBRITECyndi y 250 DO Work Phone: Tobacco use status CP b) No [facility] HeartEcTownUSACyndi y 250 DO Work Phone: No Panel Informationon 03-27 135\S\135 below low threshold 136-146 [facility] CBRITECyndi mcmahon 250 DO Work Phone: 4.7\S\4.7 Normal 3.5-5.1 [facility] CBRITECyndi y 250 DO Work Phone: 99\S\99 Normal 95-114 [facility] CBRITECyndi y 250 DO Work Phone: 25.4\S\25.4 Normal 22.0-30.0 [facility] HeartEcTownUSACyndi y 250 DO Work Phone: Comment on above: PERFORMED BY:[facility] [place] [id number] MEDICAL DIRECTORSTEVEN NASH M.D. Serum or plasma chloride marly surement (moles/volume)Ordered By: Marcus Recinos on 03-27-2022 Chloride [Moles/Vol] 99 mmol/L 95-114 [facility] Serum or plasma potassium me asurement (moles/volume)Ordered By: Marcus Recinos on 03-27-2022 Potassium [Moles/Vol] 4.7 mmol/L 3.5-5.1 [facility] Serum or plasma sodium measu rement (moles/volume)Ordered By: Marcus Recinos on 03-27-2022 Sodium [Moles/Vol] 135 mmol/L 136-146 [facility] Serum or plasma total carbon dioxide measurement (moles/volume)Ordered By: Marcus Recinos on 03-27-2022 CO2 [Moles/Vol] 25.4 mmol/L 22.0-30.0 [facility] COVID-19 SOFIAOrdered By: Lincoln Recinos on 03-23-2022 SARS-CoV+SARS-CoV-2 (COVID-19) Ag IA.rapid Ql (Resp) Negative Negative [facility] Comment on above: This is a duplicate Larisa SARS Antigen (TYSON) result to be used for statistical tracking purpose only. Laboratory - Microbiology an d Antimicrobial susceptibilityon 03-23-2022 SARS-CoV-2 (COVID-19) RNA VERONIQUE+probe Ql (Unsp spec) -[facility] y 250 DO Work Phone: No Panel InformationOrdered By: Marcus Recinos on 03-23-2022 SARS Antigen (LFIA) [facility] No Panel Informationon 03-23 Negative Normal Negative [facility] y 250 DO Work Phone: Comment on above: This is a duplicate Larisa SARS Antigen (TYSON) result to be used for statistical tracking purpose only.PERFORMED BY:[place] [id number] [place], [place] [id number] MEDICAL DIRECTORSTEVEN NASH M.D. Covid-19 PCR (CVDTB)on 03-04 SARS-CoV-2 (COVID-19) RNA VERONIQUE+probe Ql (Unsp spec) Not detected Normal NOT DETECTED [facility] Comment on above: Result Comment: This test is not yet approved or cleared by the [place] FDA. When there are no FDA-approved or cleared tests available, and other criteria are met, FDA can make tests available under an emergency access mechanism called an Emergency Use Authorization (EUA). The EUA for this test is supported by the Career Counselor of Health and Human Service's (HHS's) declaration [...] Performed By: #### C VDTBH #### [facility] [address] [place] [address] Dr. Igor Hayes INFLUENZA A AND B AGon 03-[facility] BELOW Normal [facility] Comment on above: Result Comment: Nega tive for Flu A protein angiten. Infection due to Flu A cannot be ruled out. Flu A angiten in the sample may be below the detection limit of the test. Performed By: #### O BSCRN #### [facility] [address] [place] [address] Dr. [facility] Normal [facility] Comment on above: Result Comment: Nega tive for Flu B protein antigen. Infection due to Flu B cannot be ruled out. Flu B antigen in the sample may be below the detection limit of the test. Performed By: #### O BSCRN #### [facility] [address] [place] [address] [address] Igor Hayes INFLUENZA A AG Negative Normal NEGATIVE SEE COMMENT [facility] Comment on above: Performed By: #### O BSCRN #### [facility] [address] [place], [place] [address] Dr. Igor Hayes INFLUENZA B AG Negative Normal NEGATIVE SEE COMMENT [facility] Comment on above: Performed By: #### O BSCRN #### [facility] [address] [place], [place] [address] Dr. Igor Hayes INTERNAL CONTROLS Within Normal Limits Normal Wi thin Normal Limits [facility] Comment on above: Performed By: #### O BSCRN #### [facility] [address] [place], [place] [address] Dr. Igor Hayes Office Visit (Cardiology)on 02-13-2022 [...] Former smoker Tobacco Use Screening; Status:Complete; Done: [id number] Unspecified atrial flutter Start: Amiodarone HCl - 200 MG Oral Tablet; Take 1 tablet twice daily IO EKG Electrocardiogram- 12 Lead; Status:Complete; Done: 13Feb2022 Unlinked Stop: Digoxin 125 MCG Oral Tablet Stop: Enalapril Maleate 5 MG Oral Tablet Stop: Toprol XL 50 MG Oral Tablet Extended Release 24 Hour (Metoprolol Succinate ER) Patient Instructions By signing my name below, IYaquelin LPN ,Price, attest that this documentation has been prepared [...] Systems [employer]io (more content not included)... Normal [employer] Tobacco Screening.on 022 Adult depression screening assessment No [facility] 250 DO Work Phone: Fall risk assessment a) No falls within the last year [facility] 250 DO Work Phone: Tobacco use status CP b) No [facility] 250 DO Work Phone: Glucose Glucometer (BldC) [M ass/Vol]Ordered By: Jin Berkowitz on 01-23-2022 Glucose [Mass/Vol] 155 mg/dL [facility] Comment on above: Random Glucose Refer ence Range is dependent on time and content of last meal. Glucose of more than 200 mg/dL in a nonstressed, ambulatory subject supports the diagnosis of Diabetes Mellitus. Activated partial thrombopla stin time (aPTT) in platelet poor plasma by coagulation aOrdered By: Ama Morrison on 01-22-2022 aPTT Coag (PPP) [Time] 71.1 s 25.1-36.5 [facility] Creatinine and Glomerular fi ltration rate.predicted panel (S/P/Bld)Ordered By: Ama Morrison on 01-22-2022 Creatinine [Mass/Vol] 1.04 mg/dL 0.64-1.27 [facility] Estimated glomerular filtrat ion rate (GFR) non- AmericanOrdered By: Ama Morrison on 01-22-2022 GFR/1.73 sq M.predicted among non-blacks MDRD (S/P/Bld) [Vol rate/Area] > 60 mL/Min [facility] No Panel InformationOrdered By: Jin Berkowitz on 01-22-2022 Bedside Glucose Comment Glu2: cleaned meter [facility] No Panel InformationOrdered By: Ama Morrison on 01-22-2022 Estimated GFR () > 60 mL/Min [facility] Comment on above: GFR estimated refere nce range: According to KDOQI guidelines, <60 ml/min/1.73m2 is sufficient to diagnose a patient with chronic kidney disease. Pharmacy Creatinine Clearance (Chem 82.75 [facility] Serum or plasma calcium tiera urement (mass/volume)Ordered By: Ama Morrison on 01-22-2022 Calcium [Mass/Vol] 9.4 mg/dL 8.2-10.2 [facility] Serum or plasma chloride marly surement (moles/volume)Ordered By: Ama Morrison on 01-22-2022 Chloride [Moles/Vol] 99 mmol/L 95-114 [facility] Serum or plasma glucose tiera urement (mass/volume)Ordered By: Ama Morrison on 01-22-2022 Glucose [Mass/Vol] 117 mg/dL 70-100 [facility] Comment on above: ADA recommended refe rence [...] on 01-22-2022 Potassium [Moles/Vol] 4.6 mmol/L 3.5-5.1 [facility] Serum or plasma sodium measu rement (moles/volume)Ordered By: Ama Morrison on 01-22-2022 Sodium [Moles/Vol] 139 mmol/L 136-146 [facility] Serum or plasma total carbon dioxide measurement (moles/volume)Ordered By: Ama Morrison on 01-22-2022 CO2 [Moles/Vol] 29.5 mmol/L 22.0-30.0 [facility] Serum or plasma urea nitroge n measurement (mass/volume)Ordered By: Ama Morrison on 01-22-2022 Urea nitrogen [Mass/Vol] 17 mg/dL 9-23 [facility] Basophils Auto (Bld) [#/Vol] Ordered By: Pola Anders on 01-21-2022 Basophils (Bld) [#/Vol] 0.1 10*3/uL 0.0-0.2 [facility] Basophils/100 WBC Auto (Bld) Ordered By: Pola Anders on 01-21-2022 Basophils/100 WBC (Bld) 1.2 % [facility] Blood hemoglobin measurement (mass/volume)Ordered By: Pola Anders on 01-21-2022 Hemoglobin (Bld) [Mass/Vol] 15.9 g/dL 13.0-17.0 [facility] Blood leukocytes automated c ount (number/volume)Ordered By: Pola Anders on 01-21-2022 WBC (Bld) [#/Vol] 4.9 10*3/uL 4.5-11.0 [facility] Eosinophils Auto (Bld) [#/Vo l]Ordered By: Pola Anders on 01-21-2022 Eosinophils (Bld) [#/Vol] 0.2 10*3/uL 0.0-0.45 [facility] Eosinophils/100 WBC Auto (Bl d)Ordered By: Pola Anders on 01-21-2022 Eosinophils/100 WBC (Bld) 3.1 % [facility] Erythrocyte distribution wid th Auto (RBC) [Ratio]Ordered By: Pola Anders on 01-21-2022 Erythrocyte distribution width (RBC) [Ratio] 13.4 % 12.0-14.8 [facility] Hematocrit Auto (Bld) [Volum e fraction]Ordered By: Pola Anders on 01-21-2022 Hematocrit (Bld) [Volume fraction] 46.7 % 38.8-50.0 [facility] Laboratory - Hematology and Cell countsOrdered By: Pola Anders on 01-21-2022 Nucleated RBC/100 WBC (Bld) [Ratio] 0.2 % 0-0.5 [facility] Lymphocytes Auto (Bld) [#/Vo l]Ordered By: Pola Anders on 01-21-2022 Lymphocytes (Bld) [#/Vol] 1.3 10*3/uL 1.00-4.8 [facility] Lymphocytes/100 WBC Auto (Bl d)Ordered By: Pola Anders on 01-21-2022 Lymphocytes/100 WBC (Bld) 26.4 % [facility] MCH Auto (RBC) [Entitic mass ]Ordered By: Pola Anders on 01-21-2022 MCH (RBC) [Entitic mass] 30.8 pg 27.5-35.2 [facility] MCHC Auto (RBC) [Mass/Vol]Or dered By: Pola Martita on 01-21-2022 MCHC (RBC) [Mass/Vol] 34.2 g/dL 32.5-35.6 [facility] MCV Auto (RBC) [Entitic vol] Ordered By: Pola Martita on 01-21-2022 MCV (RBC) [Entitic vol] 90.2 fL 83.5-101 [facility] Monocytes Auto (Bld) [#/Vol] Ordered By: Pola Martita on 01-21-2022 Monocytes (Bld) [#/Vol] 0.6 10*3/uL 0.0-0.8 [facility] Monocytes/100 WBC Auto (Bld) Ordered By: Pola Martita on 01-21-2022 Monocytes/100 WBC (Bld) 13.0 % [facility] Neutrophils Auto (Bld) [#/Vo l]Ordered By: Pola Anders on 01-21-2022 Neutrophils (Bld) [#/Vol] 2.8 10*3/uL 1.8-7.7 [facility] Neutrophils/100 WBC Auto (Bl d)Ordered By: Pola Anders on 01-21-2022 Neutrophils/100 WBC (Bld) 56.3 % [facility] Platelet mean volume Auto (B ld) [Entitic vol]Ordered By: Pola Cooperam on 01-21-2022 Platelet mean volume (Bld) [Entitic vol] 9.2 fL 6.6-10.1 [facility] Platelets Auto (Bld) [#/Vol] Ordered By: Pola Anders on 01-21-2022 Platelets (Bld) [#/Vol] 176 10*3/uL 150-450 [facility] RBC Auto (Bld) [#/Vol]Ordere d By: Pola Anders on 01-21-2022 RBC (Bld) [#/Vol] 5.18 10*6/uL 3.90-5.60 [facility] Cholesterol [Mass/volume] in Serum or PlasmaOrdered By: Pola Anders on 01-20-2022 Cholesterol [Mass/Vol] 155 mg/dL 140-200 [facility] Comment on above: Chol less than 200 m g/dl low riskChol 201-239 mg/dl borderline riskChol 240 mg/dl and greater high risk Chol less than 200 m g/dl low risk Chol 201-239 mg/dl borderline risk Chol 240 mg/dl and greater high risk Cholesterol in LDL Calc [Mas s/Vol]Ordered By: Pola Anders on 01-20-2022 Cholesterol in LDL [Mass/Vol] 82 mg/dL 0-100 [facility] Comment on above: LDL ATP III [...] 01-20-2022 Cholesterol in VLDL [Mass/Vol] 31 mg/dL [facility] Glucose mean value [Mass/vol ume] in Blood Estimated from glycated hemoglobinOrdered By: Pola Anders on 01-20-2022 Average glucose Estimated from glycated hemoglobin (Bld) [Mass/Vol] 140 mg/dL [facility] Hemoglobin A1c percentageOrd ered By: Pola Anders on 01-20-2022 HbA1c (Bld) [Mass fraction] 6.5 % 4.3-5.6 [facility] Comment on above: Increased risk for d iabetes: 5.7 - 6.4diabetes: >6.4glycemic control for adults with diabetes: <7.0 Increased risk for d iabetes: 5.7 - 6.4 diabetes: >6.4 glycemic control for adults with diabetes: <7.0 Laboratory - CoagulationOrde red By: Pola Anders on 01-20-2022 PT Coag (PPP) [Time] 15.6 s 9.0-12.9 [facility] Platelet poor plasma interna tional normalized ratio (INR) by coagulation assay (relatOrdered By: Pola Anders on 01-20-2022 INR Coag (PPP) [Relative time] 1.4 {INR} [facility] Comment on above: INR Therapeutic Rang [...] Cholesterol in HDL [Mass/Vol] 41 mg/dL 29-71 [facility] Comment on above: HDL CHOL ATP-III [...] olesterol in HDL [Mass ratio] 3.8 {ratio} [facility] Triglyceride [Mass/volume] i n Serum or PlasmaOrdered By: Pola Anders on 01-20-2022 Triglyceride [Mass/Vol] 158 mg/dL 35-149 [facility] Comment on above: TRIG ATP III [...] High sensitivity method [Mass/Vol] 7 pg/mL 0-20 [facility] Vital Signs Date Time Vital Sign Value Performing Clinician Facility 11-26-2024 10:35-0500 Body height 182.9 cm Joe García DPM Work Phone: [facility] 11-26-2024 10:35-0500 Body mass index (BMI) [Ratio] 31.19 kg/m2 Joe García DPM Work Phone: [facility] 11-26-2024 10:35-0500 Body weight 104.33 kg Joe Brown DPM Work Phone: [facility] 11-26-2024 10:35-0500 Respiratory rate 18 /min Joe García DPM Work Phone: [facility] 12-04-2023 09:03-0500 Body height 182.9 cm Marcus Recinos MD Work Phone: [facility] 12-04-2023 09:03-0500 Body mass index (BMI) [Ratio] 31.46 kg/m2 Marcus Recinos MD Work Phone: [facility] 12-04-2023 09:03-0500 Body weight 105.23 kg Marcus Recinos MD Work Phone: [facility] 12-04-2023 09:03-0500 Diastolic blood pressure 72 mm[Hg] Marcus Recinos MD Work Phone: [facility] 12-04-2023 09:03-0500 Heart rate 61 /min Marcus Recinos MD Work Phone: [facility] 12-04-2023 09:03-0500 Systolic blood pressure 118 mm[Hg] Marcus Recinos MD Work Phone: [facility] 02-08-2023 10:42-0400 Body height 182.88 cm Tirso Miguel Hoy Work Phone: [facility] 250 DO Work Phone: 02-08-2023 10:42-0400 Body mass index (BMI) [Ratio] 30.65 kg/m2 Tirso M Hoy Work Phone: [facility] 250 DO Work Phone: 02-08-2023 10:42-0400 Body surface area Derived from formula 2.24 m2 Tirso M Hoy Work Phone: [facility] 250 DO Work Phone: 02-08-2023 10:42-0400 Body weight 102.51 kg Tirso M Hoy Work Phone: [facility] 250 DO Work Phone: 02-08-2023 10:42-0400 Diastolic blood pressure 83 mm[Hg] Tirso M Hoy Work Phone: [facility] 250 DO Work Phone: 02-08-2023 10:42-0400 Heart rate 54 /min Tirso M Hoy Work Phone: [facility] 250 DO Work Phone: 02-08-2023 10:42-0400 Systolic blood pressure 128 mm[Hg] Tirso M Hoy Work Phone: [facility] 250 DO Work Phone: 11-08-2022 11:01-0500 Body height 182.88 cm Tirso M Hoy Work Phone: [facility] 250 DO Work Phone: 11-08-2022 11:01-0500 Body mass index (BMI) [Ratio] 30.92 kg/m2 Tirso M Hoy Work Phone: [facility] 250 DO Work Phone: 11-08-2022 11:01-0500 Body surface area Derived from formula 2.25 m2 Tirso M Hoy Work Phone: [facility] 250 DO Work Phone: 11-08-2022 11:01-0500 Body weight 103.42 kg Tirso M Hoy Work Phone: [facility] 250 DO Work Phone: 11-08-2022 11:01-0500 Diastolic blood pressure 72 mm[Hg] Tirso M Hoy Work Phone: [facility] 250 DO Work Phone: 11-08-2022 11:01-0500 Heart rate 49 /min Tirso Miguel Hoy Work Phone: [facility] 250 DO Work Phone: 11-08-2022 11:01-0500 Systolic blood pressure 110 mm[Hg] Tirso Miguel Hoy Work Phone: [facility] 250 DO Work Phone: 04-24-2022 14:21-0400 Body height 182.88 cm Tirso Miguel Hoy Work Phone: [facility] 250 DO Work Phone: 04-24-2022 14:21-0400 Body mass index (BMI) [Ratio] 30.38 kg/m2 Tirso Miguel Hoy Work Phone: [facility] 250 DO Work Phone: 04-24-2022 14:21-0400 Body surface area Derived from formula 2.24 m2 Tirso Miguel Hoy Work Phone: [facility] 250 DO Work Phone: 04-24-2022 14:21-0400 Body weight 101.61 kg Tirso Miguel Hoy Work Phone: [facility] 250 DO Work Phone: 04-24-2022 14:21-0400 Diastolic blood pressure 80 mm[Hg] Tirso M Hoy Work Phone: [facility] 250 DO Work Phone: 04-24-2022 14:21-0400 Heart rate 51 /min Tirso M Hoy Work Phone: [facility] 250 DO Work Phone: 04-24-2022 14:21-0400 Systolic blood pressure 118 mm[Hg] Tirso Frausto Work Phone: [facility] 250 DO Work Phone: 04-17-2022 12:00-0400 Body temperature 97.34 [degF] Sarath Menendezer [facility] 04-17-2022 12:00-0400 Diastolic blood pressure 68 mm[Hg] Sarath Menendezer [facility] 04-17-2022 12:00-0400 Heart rate 50 /min Sarath Menendezer [facility] 04-17-2022 12:00-0400 SaO2% (BldA) [Mass fraction] 96 % Sartah Menendezer [facility] 04-17-2022 12:00-0400 Systolic blood pressure 100 mm[Hg] Sarath Menendezer [facility] 04-17-2022 11:36-0400 Blood Pressure Location Sarath Hines [facility] 04-17-2022 11:36-0400 BP/Pulse Patient Position Sarath Menendezer [facility] 04-17-2022 11:36-0400 Diastolic blood pressure 75 mm[Hg] Sarath Menendezer [facility] 04-17-2022 11:36-0400 Heart rate 47 /min Sarath Menendezer [facility] 04-17-2022 11:36-0400 Respiratory rate 18 /min Sarath Crumhler [facility] 04-17-2022 11:36-0400 SaO2% (BldA) [Mass fraction] 94 % Sarath Hines [facility] 04-17-2022 11:36-0400 Systolic blood pressure 109 mm[Hg] Sarath Crumhler [facility] 04-17-2022 11:20-0400 Blood Pressure Location Sarath Menendezer [facility] 04-17-2022 11:20-0400 BP/Pulse Patient Position Sarath Crumkarener [facility] 04-17-2022 11:20-0400 Diastolic blood pressure 82 mm[Hg] Sarath Zahler [facility] 04-17-2022 11:20-0400 Heart rate 47 /min Sarath [facility]rumkarener [facility] 04-17-2022 11:20-0400 Respiratory rate 18 /min Sarath Zakarener [facility] 04-17-2022 11:20-0400 SaO2% (BldA) [Mass fraction] 94 % Sarath [facility]akarener [facility] 04-17-2022 11:20-0400 Systolic blood pressure 110 mm[Hg] Sarath Crumhler [facility] 04-17-2022 09:32-0400 Blood Pressure Location Sarath Crumkarener [facility] 04-17-2022 09:32-0400 BP/Pulse Patient Position Sarath Crumhler [facility] 04-17-2022 09:32-0400 Mean blood pressure 76 mm[Hg] Sarath Zahler [facility] 04-17-2022 09:31-0400 Body temperature 98.6 [degF] Sarath Menendezer [facility] 04-17-2022 09:31-0400 Mean blood pressure 79 mm[Hg] Sarath Hines [facility] 04-17-2022 09:31-0400 Respiratory rate 20 /min Sarath Hines [facility] 03-27-2022 09:00-0400 Inhaled oxygen flow rate 2 L/min Tirso Hoy Work Phone: [facility] 02-27-2022 12:16-0400 Body height 182.88 cm Tirso M Hoy Work Phone: [facility] 250 DO Work Phone: 02-27-2022 12:16-0400 Body mass index (BMI) [Ratio] 30.65 kg/m2 Tirso M Hoy Work Phone: [facility] 250 DO Work Phone: 02-27-2022 12:16-0400 Body surface area Derived from formula 2.24 m2 Tirso M Hoy Work Phone: [facility] 250 DO Work Phone: 02-27-2022 12:16-0400 Body weight 102.51 kg Tirso M Hoy Work Phone: [facility] 250 DO Work Phone: 02-27-2022 12:16-0400 Diastolic blood pressure 80 mm[Hg] Tirso M Hoy Work Phone: [facility] 250 DO Work Phone: 02-27-2022 12:16-0400 Heart rate 79 /min Tirso M Hoy Work Phone: [facility] 250 DO Work Phone: 02-27-2022 12:16-0400 Systolic blood pressure 110 mm[Hg] Tirso M Hoy Work Phone: [facility] 250 DO Work Phone: 02-13-2022 13:01-0400 Body height 182.88 cm Tirso Rivera Hoy Work Phone: [facility] 250 DO Work Phone: 02-13-2022 13:01-0400 Body mass index (BMI) [Ratio] 30.11 kg/m2 Tirso Rivera Hoy Work Phone: [facility] 250 DO Work Phone: 02-13-2022 13:01-0400 Body surface area Derived from formula 2.23 m2 Tirso Rivera Hoy Work Phone: [facility] 250 DO Work Phone: 02-13-2022 13:01-0400 Body weight 100.7 kg Tirso Gamezy Work Phone: [facility] 250 DO Work Phone: 02-13-2022 13:01-0400 Diastolic blood pressure 72 mm[Hg] Tirso Rivera Hoy Work Phone: [facility] 250 DO Work Phone: 02-13-2022 13:01-0400 Heart rate 104 /min Tirso Rivera Hoy Work Phone: [facility] 250 DO Work Phone: 02-13-2022 13:01-0400 Systolic blood pressure 104 mm[Hg] Tirso Rivera Hoy Work Phone: [facility] 250 DO Work Phone: 01-23-2022 08:00-0400 Body temperature 97.8 [degF] MD Tirso Frausto Work Phone: [facility] 01-23-2022 08:00-0400 Diastolic blood pressure 64 mm[Hg] MD Tirso Frausto Work Phone: [facility] 01-23-2022 08:00-0400 Heart rate 73 /min MD Tirso Frausto Work Phone: [facility] 01-23-2022 08:00-0400 Respiratory rate 18 /min MD Tirso Frausto Work Phone: [facility] 01-23-2022 08:00-0400 SaO2% (BldA) [Mass fraction] 93 % MD Tirso Frausto Work Phone: [facility] 01-23-2022 08:00-0400 Systolic blood pressure 100 mm[Hg] MD Tirso Frausto Work Phone: [facility] 01-23-2022 05:57-0400 Body weight 93.1 kg MD Tirso Frausto Work Phone: [facility] 01-22-2022 08:40-0400 Inhaled oxygen flow rate 2 L/min MD Tirso Frausto Work Phone: [facility] 01-20-2022 16:12-0400 55 1 Tirso Frausto Work Phone: [facility] 250 DO Work Phone: Comment on above: [id number] 01-20-2022 02:09-0400 Body height 182.88 cm MD Tirso Frausto Work Phone: [facility] 01-20-2022 02:09-0400 Body mass index (BMI) [Ratio] 29.9 kg/m2 MD Tirso Frausto Work Phone: [facility] Encounters Encounter Date Encounter Type Care Provider Facility Start: 11-26-2024 End: 11-26-2024 Wendy García DPM Work Phone: [facility] Start: 11-26-2024 End: 11-26-2024 Wendy García DPM Work Phone: [facility] Start: 11-26-2024 End: 11-26-2024 Office outpatient new 30 minutes Joe García DPMiguel Work Phone: [facility] Comment on above: Contusion of right f oot, initial encounter (Primary Dx); Pain due to onychomycosis of toenails of both feet; Diabetes mellitus due to underlying condition with diabetic polyneuropathy, unspecified whether terminal gauger insulin use (CMS/HCC) Start: 11-26-2024 End: 11-26-2024 ambulatory JOE GARCÍA Not Available Start: 06-03-2024 End: 06-03-2024 ambulatory [facility] Start: 12-04-2023 End: 12-04-2023 Office outpatient visit 25 minutes Marcus Recinos MD Work Phone: [facility] Comment on above: Atrial flutter, unsp ecified type (CMS/HCC) (Primary Dx); Benign essential hypertension; High risk medication use; Hyperlipidemia, unspecified hyperlipidemia type; Pulmonary emphysema, unspecified emphysema type ([facility]); Coronary artery disease involving [place] coronary artery of [place] heart without angina pectoris; Obesity, Class I, BMI 30-34.9 Start: 12-04-2023 End: 12-04-2023 ambulatory [facility] Ambulatory Start: 05-06-2023 Patient encounter procedure Tirso Frausto Work Phone: [facility] 250 DO Work Phone: Start: 03-08-2023 End: 03-09-[address] TIRSO FRAUSTO . Facility: Start: 02-08-2023 Patient encounter procedure Tirso Frausto Work Phone: [facility] 250 DO Work Phone: Start: 02-08-[address] Darwin Perdomo Facility: Start: 02-05-2023 AUDIT Tirso Frausto Work Phone: [facility] 250 DO Work Phone: Start: 02-01-2023 End: 02-01-2023 ambulatory NOELLE VALERA Facility:H1 Start: 01-22-2023 End: 01-22-2023 ambulatory Jina Rios Other Compliance 11 Other Start: 01-22-2023 Telephone encounter Jina Broussard [facility] Start: 01-21-2023 Telephone encounter Tirso Frausto Work Phone: [facility] 250 DO Work Phone: Start: 01-10-2023 End: 01-11-[address] MARCUS RECINOS Facility:H1 Start: 01-01-2023 ([facility] R A/c) [facility] Re peat A/C Olga Phipps [facility] Start: 01-01-2023 Telephone encounter Jina Broussard [facility] Start: 01-01-2023 End: 01-02-2023 ambulatory Marcus Recinos [facility] [employer] Other Start: 12-20-2022 Patient encounter procedure Tirso Frausto Work Phone: [facility] 250 DO Work Phone: Start: 12-10-2022 ([facility] R A/c) [facility] Re peat A/C Victoria Mujica [facility] Start: 12-10-2022 End: 12-10-2022 ambulatory Victoria Guanako Other Compliance 11 Other Start: 11-26-2022 ([facility] R A/c) [facility] Re peat A/C [facility] Start: 11-26-2022 End: 11-26-2022 ambulatory Victoria Guanako Other Compliance 11 Other Start: 11-15-2022 ([facility] R A/c) [facility] Re peat A/C Carlos A Salazar [facility] Start: 11-15-2022 End: 11-15-2022 ambulatory Carlos A Harrisonmitali Other Formerly [facility] [employer] Other Start: 11-14-2022 End: 11-15-[address] MARCUS RECINOS Facility:H1 Start: 11-08-2022 Office outpatient vi sit 25 minutes Tirso Frausto Work Phone: [facility] 250 DO Work Phone: Start: 11-08-2022 ambulatory Marcus Recinos Facility : Start: 11-02-2022 End: 11-03-[address] TIRSO FRAUSTO . Facility:H1 Start: 11-01-2022 End: 11-01-2022 ambulatory Jina Rios Other [facility] [employer] Other Start: 11-01-2022 Telephone encounter Jina Rios [facility] Start: 10-23-2022 End: 10-24-[address] MARCUS RECINOS Facility:H1 Start: 10-22-2022 End: 10-23-[address] ABHIJIT MIKE Facility: Start: 10-15-2022 Telephone encounter Tirso Frausto Work Phone: [facility] 250 DO Work Phone: Start: 10-10-2022 Patient encounter procedure Tirso Frausto Work Phone: [facility] 250 DO Work Phone: Start: 10-09-2022 End: 10-10-[address] TIRSO FRAUSTO . Facility:H1 Start: 08-10-2022 Chart Update Tirso Frausto Work Phone: [facility] 250 DO Work Phone: Start: 07-30-2022 End: 07-30-2022 ambulatory Marcus Recinos Facility:[facility] Start: 07-06-2022 Patient encounter procedure Tirso Frausto Work Phone: [facility] 250 DO Work Phone: Start: 05-15-2022 Rx Renewal Tirso Rivera Francosalome Work Phone: [facility] 250 DO Work Phone: Start: 04-26-2022 Chart Update Tirso Frausto Work Phone: [facility] 250 DO Work Phone: Start: 04-26-2022 End: 04-26-2022 ambulatory Marcus Recinos Facility:[facility] Start: 04-26-2022 End: 04-26-2022 Patient encounter procedure MD Tirso Frausto Work Phone: [facility] Start: 04-24-2022 Office outpatient vi sit 25 minutes Tirso Frausto Work Phone: [facility] 250 DO Work Phone: Start: 04-24-2022 ambulatory Marcus Recinos Facility : Start: 04-19-2022 Rx Renewal Tirsoloreta Frausto Work Phone: [facility] 600 DO Work Phone: Start: 04-17-2022 End: 04-17-2022 [facility] Start: 03-28-2022 Chart Update Tirso Frausto Work Phone: [facility] 250 DO Work Phone: Start: 03-27-[address] Tirso Frausto Facility:90 Start: 03-27-2022 SURGNONUH, Provider: Marcus Recinos, Status: Pen, Time: 9:00 AM Tirso Frausto Work Phone: [facility] 250 DO Work Phone: Start: 03-27-2022 End: 03-27-2022 Admission to same day surgery center MD Tirso Frausto Work Phone: [facility]Elect[facility] Start: 03-26-2022 Chart Update Tirso Frausto Work Phone: [facility] 250 DO Work Phone: Start: 03-23-2022 End: 03-23-2022 Patient encounter procedure MD Tirso Frausto Work Phone: [facility]Pre-Surgical Testing Start: 03-15-2022 End: 03-15-[address] TIRSO FRAUSTO . Facility: Start: 03-08-2022 Patient encounter procedure Tirso Rivera Francosalome Work Phone: [facility] 250 DO Work Phone: Start: 03-01-2022 Telephone encounter Tirso Miguel Francosalome Work Phone: [facility] 250 DO Work Phone: Start: 02-27-2022 ambulatory Mayo Recinos Facility : Start: 02-27-2022 Patient encounter procedure Tirso Rivera Francosalome Work Phone: [facility] 250 DO Work Phone: Start: 02-13-2022 Office outpatient vi sit 25 minutes Tirso Rivera Francosalome Work Phone: [facility] 250 DO Work Phone: Start: 02-13-2022 ambulatory Mayo Recinos Facility : Start: 01-25-2022 End: 01-25-2022 Patient encounter procedure MD Tirso Frausto Work Phone: [facility] [address] Start: 01-20-2022 End: 01-23-2022 Evaluation and management of inpatient MD Tirso Frausto Work Phone: [facility] [place] [facility] Procedures Date Procedure Procedure Detail Performing Clinician Start: 12-04-2023 ECG 12-LEAD MAYO IBR AHIM Start: 12-04-2023 Ecg routine ecg w/le ast 12 lds w/i&r Marcus Recinos MD Work Phone: Start: 10-09-[address] ABHIJIT Riley ISTED REQUEST Comment on above: Performed By: #### O BSCRN #### [facility] [address] [place] [address] Dr. 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 Appendectomy Tirso M Lisbet Work Phone: Appendectomy Sarath Hines Cardiac catheterization Jim las M [place] Work Phone: Cardioversion Tirso M Francoy Work Phone: Cataract surgery Tirso M H oy Work Phone: Hernia repair Tirso M Francoy Work Phone: Primary repair of um bilical hernia Sarath Hines Repair of ventral hernia Pablito Hines Plan of Treatment Date Care Activity Detail Author Start: 04-12-2031 Screening for malign ant neoplasm of colon [facility] Start: 02-04-2025 End: 02-04-2025 Patient encounter procedure 02/04/2025 10:20 AM EDT Procedure Visit [facility] [address] [place] [address] Joe García, DPM [address] [facility] 5 [place] [address] [facility] Start: 11-26-2024 End: 11-26-2024 Patient encounter procedure 11/26/2024 10:30 AM EST Office Visit [facility] [address] [place] [address] Joe García, DPM [address] [address] Arrived [facility] Comment on above: Arrived Start: 06-03-2024 End: 06-03-2024 Patient encounter procedure 06/03/2024 10:00 AM EDT Office Visit [facility] [address] [facility] 250 [place] [address] Marcus Recinos MD [address] [facility] 2, [address] [place] [address] [facility] Start: 07-05-2023 Influenza vaccination Influenza Vacc ine (#1) [facility] Start: 05-29-2023 FUV, Provider: Marcus Recinos, Status: Pen, Time: 9:30 AM FUV, Provider: Marcus Recinos, Status: Pen, Time: 9:30 AM [facility] Work Phone: Start: 05-14-2023 FUV, Provider: Darwin Perdomo, Status: Pen, Time: 9:30 AM FUV, Provider: Darwin Perdomo, Status: Pen, Time: 9:30 AM [facility] Work Phone: Start: 11-08-2022 FUV, Provider: Marcus Recinos, Status: Pen, Time: 10:40 AM FUV, Provider: Marcus Recinos, Status: Pen, Time: 10:40 AM -[facility] 250 DO Work Phone: Start: 04-24-2022 FUV, Provider: Marcus Recinos, Status: Pen, Time: 2:10 PM FUV, Provider: Marcus Recinos, Status: Pen, Time: 2:10 PM -[facility] 250 DO Work Phone: Start: 03-27-2022 SURGNONUH, Provider: Marcus Recinos, Status: Pen, Time: 9:00 AM SURGNONUH, Provider: Marcus Recinos, Status: Pen, Time: 9:00 AM -[facility] 250 DO Work Phone: Start: 02-27-2022 EKG, Provider: [employer] 1,[id number], Status: Pen, Time: 10:00 AM EKG, Provider: [employer] 1,[id number], Status: Pen, Time: 10:00 AM [facility] 250 DO Work Phone: Start: 2019 Abdominal aortic aneurysm screening Abdominal Aortic Aneurysm (AAA) Screening [facility] Start: 2004 Zoster Vaccines (1 o f 2) Zoster Vaccines (1 of 2) [facility] Start: 1976 DTaP/Tdap/Td Vaccine s (1 - Tdap) DTaP/Tdap/Td Vaccines (1 - Tdap) [facility] Start: 1972 Hepatitis C screening Hepatitis C [facility] Start: 1960 Pneumococcal Vaccine : 65+ Years (1 - PCV) Pneumococcal Vaccine: 65+ Years (1 - PCV) [facility] Start: 04-30-1955 COVID-19 Vaccine (#1) COVID-19 Vacci ne (#1) [facility] Start: 1954 Lipid panel Lipid Panel [facility] Start: 1954 Medicare Annual Wellness Visit Medicare Annual Wellness Visit (AWV) [facility] Start: 1954 Screening for malign ant neoplasm of colon [facility] Start: 1954 Thyroid stimulating hormone measurement TSH Level [facility] Patient Education Cardiomyopathy (DC) Digoxin Enalapril Furosemide Metoprolol Spironolactone Atrial Flutter (DC) [facility] Work Phone: Patient referral [facility] Work Phone: Immunizations Immunization Date Immunization Notes Care Provider Fa cility NEGATED: Highlighted row has not occurred!01-05-2021 influenza virus vaccine, unspecified formulation Sarath Hines [facility] Payers Date Payer Category Payer Private Health Insurance [facility] [id number] 2022 Self-pay [id number] 2019 Medicare [id number] 2019 Private Health Insurance [id number] 1959 Medicare [id number] 1959 Private Health Insurance [facility] [id number] 1954 Unknown [id number] 2.16. [id number] 1954 Unknown [id number] 2.16. 840.1.933783.3.579.2.356 1954 Unknown [id number] 2.16. 840.1.151637.3.579.2.356 1954 Unknown [id number] 2.16. 840.1.458203.3.579.2.356 1954 Unknown [id number] 2.16. 840.1.220198.3.579.2.356 1954 Unknown [id number] 2.16. 840.1.558352.3.579.2.356 1954 Unknown [id number] 2.16.84 0.1.309465.3.579.2.593 1954 Unknown [id number] 2.16.84 0.1.643233.3.579.2.593 1954 Unknown [id number] 2.16.84 0.1.708552.3.579.2.593 1954 Unknown [id number] 2.16.84 0.1.131345.3.579.2.593 1954 Unknown [id number] 2.16.84 0.1.918705.3.579.2.593 1954 Unknown [id number] 2.16.84 0.1.973901.3.579.2.593 1954 Unknown [id number] 2.16.84 0.1.373950.3.579.2.593 1954 Unknown [id number] 2.16.84 0.1.614612.3.579.2.593 1954 Unknown [id number] 2.16.84 0.1.704524.3.579.2.593 1954 Unknown [id number] 2.16.84 0.1.388014.3.579.2.593 1954 Unknown [id number] 2.16.8 40.1.776188.3.579.2.1244 1954 Unknown [id number] 2.16.8 40.1.226892.3.579.2.1244 1954 Unknown [id number] 2.16.84 0.1.788861.3.579.2.1259 Unknown [id number] Unknown Unknown [id number] 2.16.8 40.1.757218.3.579.2.531 Unknown [id number] 2.16.8 40.1.012361.3.579.2.531 Unknown [id number] 2.16.8 40.1.392963.3.579.2.531 Social History Date Type Detail Facility Start: 01-20-2022 End: 12-04-2023 Tobacco smoking status NHIS Ex-smoker (finding) [facility] Start: 12-04-2023 End: 09-30-2021 History of tobacco use [facility] Work Phone: Start: 1955 Sex Assigned At Male F [facility] Start: 12-04-2023 No illicit drug use No illicit drug use [facility] 250 DO Work Phone: Comment on above: DRINKS 6 BEERS A DAY ; 2 CUPS OF COFFEE TANNER LY; QUIT IN 08/2021; Start: 04-20-2021 Tobacco smoking status Heavy tobacco smoker (finding) [facility] End: 11-04-2020 Tobacco smoking status Smoker (finding) [facility] Tobacco smoking status Never [facility] End: 11-04-2020 History of tobacco use Cigarette Smoker [facility] Work Phone: Start: 12-04-2023 End: 11-26-2024 Tobacco use and exposure Smokeless tobacco non-user [facility] Work Phone: Start: 12-04-2023 End: 11-26-2024 Alcohol intake Current drinker of alcohol (finding) [facility] Work Phone: Start: 1955 Sex Assigned At Not on file [facility] Work Phone: Start: 11-24-2023 End: 12-04-2023 Exposure to SARS-CoV-2 (event) Not sure [facility] Start: 11-26-2024 Tobacco smoking status NHIS Never smoked tobacco [facility] Tobacco smoking status NHIS Tobacco smoking consumption unknown [facility] Medical Equipment Procedure Code Equipment Code Equipment Origin al Text Equipment Identifier Dates CATARACT EXTRACT ION W/ INTRAOCULAR LENS Sarath Hines DO 04/17/22 Non Biological Eye L [id number] FDA Start: 04-17-2022 Goals Date Patient Goal Desired Activity /State Functional Status Date Assessment Result Facility 04-17-2022 Functional Status N/A [facility] 01-23-2022 Functional status [facility] Work Phone: Mental Status Date Assessment Result Facility 01-23-2022 Cognitive function Cognitive Sta tus Patient at [facility] Work Phone: Clinical Notes 01-20-2022 to 11-26-2024 Joe García DPM - 11/26/2024 10:30 AM Maikel Recinos MD - 12/04/2023 9:00 AM ESTPatient Instructions Note Date & Type Note Facility 11-26-2024 History of Presen t illness Narrative Patient: Remedios Magaña : 1955 PCP: Tirso Frausto MD SUBJECTIVE This is a 69 y.o. male that presents today with a CC of elongated, thick nails. Pt states nails have been elongated and thick for many years and cause pain with ambulation in shoegear. Pt has tried previous treatment with minimal relief. Pt presents today for nail care and treatment. Patient is DM2 Patient also states that proximally few weeks ago he did drop object onto his right foot has some pain to the dorsum of his right foot and had swelling at that time but has slowly improved over the past 2 weeks and states minimal pain to ambulation at this time Allergies: Allergies Allergen Reactions Ciprofloxacin Rash Other Reaction(s): sunburn look/rash Past Medical History: History reviewed. No pertinent past medical history. Medications: Current Outpatient Medications: amiodarone (Pacerone) 200 MG tablet, Take 200 mg by mouth in the morning., Disp: , Rfl: ferrous sulfate 325 (65 Fe) MG tablet, Take 1 tablet by mouth in the morning and 1 tablet before bedtime., Disp: , Rfl: pravastatin (Pravachol) 40 MG tablet, Take 40 mg by mouth in the morning., Disp: , Rfl: levothyroxine (Synthroid, Levoxyl) 50 MCG tablet, Take 50 mcg by mouth in the morning. Take before meals., Disp: , Rfl: pantoprazole (ProtoNix) 40 MG EC tablet, Take 40 mg by mouth Daily, Disp: , Rfl: spironolactone (Aldactone) 25 MG tablet, TAKE 1/2 TABLET BY MOUTH EVERY DAY 90 DAYS, Disp: , Rfl: tamsulosin (Flomax) 0.4 MG 24 hr capsule, Take 0.4 mg by mouth Daily, Disp: , Rfl: Social History: Social History Socioeconomic History Marital status: Spouse name: Not on file Number of children: Not on file Years of education: Not on file Highest education level: Not on file Occupational History Not on file Tobacco Use Smoking status: Never Smokeless tobacco: Never Substance and Sexual Activity Alcohol use: Yes Drug use: Defer Sexual activity: Not on file Other Topics Concern Not on file Social History Narrative Not on file Social Drivers of Health Financial Resource Strain: Not on file Food Insecurity: Not on file Transportation Needs: Not on file Physical Activity: Not on file Stress: Not on file Social Connections: Not on file Intimate Partner Violence: Unknown (12/26/2023) Received from [facility] [place] Safety & Environment Fear of Current or Ex-Partner: Not on file Emotionally Abused: Not on file Physically Abused: Not on file Sexually Abused: Not on file Physically or Sexually Abused: Not on file Housing Stability: Not on file ROS: Gastrointestinal: denies abdominal pain, ulcers, or changes in appetite or bowel habits Musculoskeletal: Positive generalized arthritis to joints and denies loss of strength. Cardiovascular: denies CP, palpitations, positive history of arrhythmia and states he is on blood thinner OBJECTIVE LE EXAM: DERM: Elongated thick yellow crumbly nails digits 1 through 10. Negative hair growth with thin shiny atrophic skin bilaterally. Slight edema to dorsum of right lateral foot with negative openings and skin or erythema VASC: Negative DP and positive PT pedal pulses NEURO: 5.07 [place] Vasile monofilament test intact to digits and forefoot bilaterally 125Hz tuning fork diminished to 1st MPJ bilaterally ORTHO: Positive pain on palpation to nails 1 through 10 Minimal palpation lateral right foot and area of cuboid region ASSESSMENT 1. Contusion of right foot, initial encounter 2. Pain due to onychomycosis of toenails of both feet 3. Diabetes mellitus due to underlying condition with diabetic polyneuropathy, unspecified whether skilled nursing insulin use ([facility] PLAN Discussed proper foot care with patient today. Debride nails in length and thickness digits 1 through 10 Patient educated today on proper diabetic foot care including monitoring feet daily for any signs of infection openings in the skin or irregularities to both feet. Patient had a diabetic neurological exam today to both their feet and discussed proper shoe gear. Patient may continue with Tylenol and appears that right foot is slowly improving and continues with problem contact Podiatry Joe García DPM documented in this encounter [facility] 12-04-2023 History of Presen t illness Narrative [...] hours if needed., Disp: , Rfl: vitamins A,C,Y-nwhv-faonim (PreserVision AREDS) 2,148 mcg-113 mg-45 mg-17.4mg tablet, [...] type (CMS/HCC) 6. Coronary artery disease involving [place] coronary artery of [place] heart without angina pectoris 7. Obesity, Class I, BMI 30-34.9 documented in this encounter [facility] Work Phone: 12-04-2023 Instructions Leticia Mi [...] January as scheduled documented in this encounter [facility] Work Phone: 01-01-2023 Evaluation note Encounter [...] Olga Phipps PharmD, Funmilayo Velazquez PharmD Candidate Compliance 11 Other 02-06-2023 Evaluation note* Encounter Date Diagnosis [...] Ana Mujica RPh, Funmilayo Velazquez PharmD Candidate Compliance 11 Other 01-23-2023 Evaluation note* Encounter Date Diagnosis [...] in 2 weeks. Seen by Ana Mujica RPh Compliance 11 Other 01-12-2023 Evaluation note* Encounter Date Diagnosis Assessment Notes Treatment Notes Treatment Clinical Notes 12 Bradly, 2023 Medication monitoring encounter (ICD-10 - Z51.81) Referring Provider: Marcus Recinos Diagnosis: Atrial Flutter INR Goal: 2-3 INR: 3.2 Warfarin Tablet Size: 4mg Saturday: 4mg Saturday: 4mg Saturday: 4mg Saturday: 4mg : 2mg Saturday: 4mg Saturday: 4mg Total Weekly Dose: 26mg Determining dose. Begin new plan, a 7% decrease. Follow-up in 1 week. Seen by Carlos A Salazar PharmD [place] [facility] Other 06-01-2022 Hospital Discharge instructions Follow Up Care 04/04/2022 10:45:36 With:JOVANNA EDMONDS Address: [address] [place] [address] ( ) [phone] Business (8) When:[address] [facility]05-24[facility]20[facility] summary Author Jin Berkowitz [facility] January 23, 2022 12:48pm Note Date/Time January 23, 2022 12: 48pm [facility] [address] [place], [place] [id number] Discharge Summary Signed Patient: Remedios Magaña MR#: [id number] : 1955 Acct:[id number] Age/Sex: 66 / M Adm Date: 2 Loc: Room: [address] [place] [address]: Jin Berkowitz MD Copies to: [...] reformed smoker was recommended to go to [place] ED after he was found to have [...] atrial flutter and was recommended togo to [place].? EKG done there showed changes suspicious for ACS, ED physician spoke to cardiology here and was recommended to transfer here for further evaluation and management.? The patient was transferred to [facility] for further evaluation. Cardiology was consulted. [...] Home Additional Instructions: DISCHARGE INSTRUCTIONS FOR CARDIAC CASING BUILDER PHONE NUMBER OF YOUR PHYSICIAN: [phone] PROCEDURE: Heart Cath The following instructions have [...] cold, numb, blue or white, call the sanitation superintendent immediately. 4. ACTIVITY: You are advised to [...] bottle, follow the instructions on the bottle. [facility] is not responsible for incorrect prescription [...] Patient Ordered By: Ama Morrison Follow Up: [facility] [Outside] Marcus Recinos MD [Active Staff] - 02/13/22 12:40 pm Tirso Frausto MD [Primary Care Provider] - (You have been scheduled for a follow up appointment for the following date and time, please call to rescheduleif needed.) Documented By: Jin Berkowitz MD 01/23/22 1244 Signed By: <Electronically signed by Jin Berkowitz MD> 01/23/22 1248 [facility] Work Phone: 1(123) 699-366403-22-2022 Progress note Author Brandt Petit [facility] January 23, 2022 8:50am Note Date/Time January 23, 2022 8:5 0am [facility] [address] [place] [address] Cardiology Progress Note Signed Patient: Remedios Magaña MR#: [id number] : 1955 Acct:[id number] Age/Sex: 66 / M Adm Date: 2 Loc: Room: [address] [place] [address] Type : ADM INOo Attending Dr: Jin [...] for elective cardioversion in 4 weeks for hinduism of normal sinus mechanism (3) Diabetes mellitus: [...] 30 Documented By: Brandt Petit MD 01/23/22 0808 Signed By: <Electronically signed by Brandt Petit MD> 01/23/22 0825 [facility] Work Phone: 1(906) 644-452103-22-2022 Hospital Discharge instructions Additional Instructions DISCHARGE INSTRUCTIONS FOR CARDIAC CASING BUILDER PHONE NUMBER OF YOUR PHYSICIAN: [phone] PROCEDURE: Heart Cath The following instructions have [...] cold, numb, blue or white, call the sanitation superintendent immediately. 4. ACTIVITY: You are advised to [...] bottle, follow the instructions on the bottle. [facility] is not responsible for incorrect prescription information provided by the patient during their visit. Do not stop your medications without consulting your health care provider. Please take the list with you to your next doctor's appointment.[facility] Work Phone: 1(550) 605-146903-21-2022 Progress note Author Jin Berkowitz [facility] January 22, 2022 1:17pm Note Date/Time January 22, 2022 1:1 2pm [facility] [address] [place] [address] Hospitalist Progress Note Signed Patient: Remedios Magaña MR#: [id number] : 1955 Acct:[id number] Age/Sex: 66 / M Adm Date: 2 Loc: Room: [address] [place] [address] Type : ADM INOo Attending Dr: Jin [...] signed by Jin Berkowitz MD> 01/22/22 1317 [facility] Work Phone: 1(719) 516-535603-20-2022 Progress note Author Ama Morrison [facility] January 21, 2022 5:02pm Note Date/Time January 21, 2022 3:1 9pm [facility] [address] [place] [address] Hospitalist Progress Note Signed with Addenda Patient: Remedios Magaña MR#: [id number] : 1955 Acct:[id number] Age/Sex: 66 / M Adm Date: 2 Loc: Room: [address] [place] [address] Type : ADM INOo Attending Dr: Ama [...] <Electronically signed by Ama Morrison MD> 01/21/22 1526 [facility] Work Phone: 1(202) 302-759603-20-2022 Progress note Author Brandt Petit [facility] January 21, 2022 10:42am Note Date/Time January 21, 2022 10: 41am [facility] [address] [place] [address] Cardiology Progress Note Signed Patient: Remedios Magaña MR#: [id number] : 1955 Acct:[id number] Age/Sex: 66 / M Adm Date: 2 Loc: Room: [address] [place] [address] Type : ADM INOo Attending Dr: Ama [...] MPV Neut % (Auto) Lymph % (Auto) Crosby % (Auto) Eos % (Auto) Baso % (Auto) Neut # (Auto) Lymph # (Auto) Crosby # (Auto) Eos # (Auto) Baso # (Auto) Nucleated RBC % (auto) APTT POC Glucose 133 POC Glucose Comment Glu2: cleaned meter Troponin I High Sens 7 Add-On Test Request Cancelled 01/20/22 01/20/22 01/20/22 16:41 17:37 20:51 Corrected WBC Uncorrected WBC Count RBC Hgb Hct MCV MCH MCHC RDW Plt Count MPV Neut % (Auto) Lymph % (Auto) Crosby % (Auto) Eos % (Auto) Baso % (Auto) Neut # (Auto) Lymph # (Auto) Crosby # (Auto) Eos # (Auto) Baso # [...] % (Auto) 56.3 Lymph % (Auto) 26.4 Crosby % (Auto) 13.0 Eos % (Auto) 3.1 Baso % (Auto) 1.2 Neut # (Auto) 2.8 Lymph # (Auto) 1.3 Crosby # (Auto) 0.6 Eos # (Auto) 0.2 Baso # (Auto) 0.1 Nucleated RBC % (auto) 0.2 APTT 81.3 H POC Glucose 113 POC Glucose Comment Troponin I High Sens Add-On Test Request 01/21/22 07:15 Corrected WBC Uncorrected WBC Count RBC Hgb Hct MCV MCH MCHC RDW Plt Count MPV Neut % (Auto) Lymph % (Auto) Crosby % (Auto) Eos % (Auto) Baso % (Auto) Neut # (Auto) Lymph # (Auto) Crosby # (Auto) Eos # (Auto) Baso # [...] signed by Brandt Petit MD> 01/21/22 1042 [facility] Work Phone: [phone]) 387-335303-19-2022 Consult note Author Brandt Petit [facility] January 20, 2022 5:08pm Note Date/Time January 20, 2022 5:0 8pm [facility] [address] [place] [address] Cardiology Consult Note Signed Patient: Remedios Magaña MR#: [id number] : 1955 Acct:[id number] Age/Sex: 66 / M Adm Date: 2 Loc: Room: [address] [place] [address] Type : ADM INOo Attending Dr: Ama [...] breath with exertion. He went to an water pumper appointment at which time he was told [...] that the patient last night went to [place] emergency department for evaluation. In the [place] ER, an EKG was checked which again [...] mg-vit E 90 mg-zinc 40 mg-copper 1 we-huiyob-pfisdh capsule (PreserVision AREDS-2) 1 tab PO BID [...] x10E3/uL Lymph # (Auto) 1.3 (1.00-4.8) x10E3/uL Crosby # (Auto) 0.6 (0.0-0.8) x10E3/uL Eos # [...] 01/20/22 07:59 15:59 23:59 Intake Total 0 720 720 / 720 Balance 0 720 720 / 720 Intake: Oral 0 720 720 / 720 Other: # Unmeasured [...] patient. Documented By: Brandt Petit MD 01/20/22 4838 Signed By: <Electronically signed by Brandt Petit MD> 01/20/22 170 [facility] Work Phone: 1(319) 822-883403-19-2022 History and physical note Author Pola Anders [facility] January 20, 2022 6:26am Note Date/Time January 20, 2022 2:4 5am [facility] [address] [place] [address] Hospitalist H&P Signed Patient: Remedios Magaña MR#: [id number] : 1955 Acct:[id number] Age/Sex: 66 / M Adm Date: 2 Loc: 3T Room: [address] [place] [address] Type : ADM IN Attending Dr: Pola Anders MD Copies to: MD Tirso Chew MD~ HPI DATE OF EXAMINATION: 01/20/22 CHIEF COMPLAINT: chest pain HISTORY OF PRESENT ILLNESS: Patient is a 66-year-old gentleman past medical history of diabetes diet- controlled, hyperlipidemia, BPH, reformed smoker was recommended to go to [place] ED after he was found to have [...] atrial flutter and was recommended togo to [place] ED. EKG done there showed changes suspicious [...] negative unless noted below or in HPI [facility] Medical History (Updated 01/20/22 @ 02:46 [...] mg-vit E 90 mg-zinc 40 mg-copper 1 ha-nsbuqi-hidcqy capsule (PreserVision AREDS-2) 1 tab PO BID [...] and is hemodynamically stable Labs reviewed from [place] ED which are essentially normal including TSH and Troponin Obtain lipid panel, A1c, echo Consult cardiology Ordered routine labs Telemetry Fall precautions CIWA protocol Resume heparin drip that has been started at [place] ED DVT prophylaxis CODE STATUS full code. Documented By: Pola Anders MD 01/20/22 0238 Signed By: <Electronically signed by Pola Anders MD> 01/20/22 0611 [facility] Work Phone: Discharge summary Author Marcus Recinos [facility] March 27, 2022 9:20am Note Date/Time March 27, 2022 9:20a m [facility] [address] [place], [place] [id number] Discharge Summary Signed Patient: Remedios Magaña MR#: [id number] : 1955 Acct:[id number] Age/Sex: 66 / M Adm Date: 2 Loc: Room: Attending Dr: Marcus Recinos MD Copies to: MD Marcus Sommer MD, [facility]~ Providers Date of Discharge: 03/27/22 Discharging Provider: [...] RF: 0 Documented By: Marcus Recinos MD, [facility] 919 Signed By: <Electronically signed by [facility] NORTHWEST RURAL HEALTH NETWORKTimur Recinos> 03/27/22919 [facility] Work Phone: Evaluation + Plan note No data available for this section [facility] Diagnosis Onset Date Resolution Status Atrial flutter acute Cardiomyopathy acute Chronic alcohol use acute Diabetes mellitus acute Hyperlipidemia acute [facility] Work Phone: Evaluation noteNo assessment information available [facility] Work Phone: Evaluation noteNo InformationNort Dahu Other Evaluation note* Diagnosis Atrial flutter, unspecified type (CMS/HCC)- Primary Benign essential hypertension Essential hypertension, benign High risk medication use Hyperlipidemia, unspecified hyperlipidemia type Pulmonary emphysema, unspecified emphysema type (CMS/HCC) Coronary artery disease involving [place] coronary artery of [place] heart without angina pectoris Obesity, Class I, BMI 30-34.9 documented in this encounter [facility] Work Phone: Evaluation note* Diagnosis Contusion of right foot, initial encounter- Primary Pain due to onychomycosis of toenails of both feet Diabetes mellitus due to underlying condition with diabetic polyneuropathy, unspecified whether skilled nursing insulin use (CMS/HCC) [facility] Work Phone: [facility] Dis[facility] instructions[facility] Work Phone: Hospital Discharge instructionsL[facility] Work Phone: Progress note No data available for this section [facility] Chief Complaint and Reason for Visit [...] Date/ Time Advance Directives No January 20, 022 12:25am Chief Complaint * REMEDIOS MAGAÑA [...] Recinos MD for review.Amiodarone Order sent to [facility] for testing due in MARCH* S/P CARDIOVERSION. [...] in the past Amiodarone Order sent to [facility] for testing due in JulyAmiodarone order sent to [facility] for October 2022* REMEDIOS MAGAÑA is [...] more aggressive diet. Amiodarone order sent to [facility] for January 2023* Patient in the [...] test done please contact our office at [phone] and press option #4 so that we may assist you in the problems. * Thank you for your compliance with this testing. * The Staff * [facility] [place] * Please have done July 2023 Family [...] Procedures ECG 12 Lead Marcus Recinos MD [address] [place] [address] [address], [address] [address] Referral ID Status Reason Start Date Expiration Date V isits Requested Visits Authorized [id number] Authorized 12/04/2023 12/03/2024 1 1 Specialty Diagnoses / Procedures Referred By Contac t Referred To Contact Cardiology Diagnoses Benign essential hypertension Atrial flutter, unspecified type (CMS/HCC) Procedures Follow Up In Cardiology Marcus Recinos MD [address] [place] [address] 2, [address] [address] Marcus Recinos MD [address] [place] [address] [address], [address] [address] Referral ID Status Reason Start Date Expiration Date V isits Requested Visits Authorized [id number] Authorized 12/04/2023 12/03/2024 1 1 Additional Source [...] MD Attending Provider, Referring Prov ider 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 Relationship Specialty Start Date End Date Tirso Frausto MD [address] [place] [address] PCP - General 11/04/99 Rigging Loft Mechanic Relationship Specialty Start Date End Date Tirso Frausto MD [address] [place] [address] PCP - General Family Medicine 11/26/24 (unrecognized sect ion and content) No Status Records FoundNo Status Records FoundNo Status Records FoundNo Status Records FoundNo Status Records FoundNo Status Records FoundNo Status Records Found INFORMATION SOURCE (unrecogn ized section and content) DATE CREATED AUTHOR 04/25/2022 [employer] DATE CREATED AUTHOR AUTHOR'S ORGANIZ ATION 02/10/2023 [facility] DATE CREATED AUTHOR AUTHOR'S ORGANIZ ATION 03/15/2023 [facility] DATE CREATED AUTHOR AUTHOR'S ORGANIZ ATION 04/12/2023 [facility] DATE CREATED AUTHOR AUTHOR'S ORGANIZ ATION 02/20/2024 [facility] DATE CREATED AUTHOR AUTHOR'S ORGANIZ ATION 09/11/2024 [facility] DATE CREATED AUTHOR AUTHOR'S ORGANIZ ATION 11/28/2024 [facility] EPIC Goals (unrecognized section and content) Goals may be documented in a n alternate section REASON FOR VISIT (unrecogniz ed section and content) Reason Comments Follow-up 6 months Specialty Diagnoses / Procedures Referred By Contac t Referred To Contact Diagnoses Atrial flutter, unspecified type (CMS/[facility]) Procedures ECG 12 Lead Marcus Recinos MD [address] [facility] 2, [facility] [address] [place] [address] Referral ID Status Reason Start Date Expiration Date V isits Requested Visits Authorized [id number] Authorized 12/04/2023 12/03/2024 1 1 Reason Comments Toenail Care Non dm nail care FOR RECORDS PERTAINING TO PATIENTS WHO ARE [...] BE BASED ON THE PRIMARY CLINICAL RECORDS. [employer] provides no warranty or guarantee of the accuracy or completeness of information in this document.
[2024-12-28 08:36] LABS: Carbon Dioxide 29.4 mmol/L (21.0-32.0); Chloride 103 mmol/L (98-107); Potassium 4.6 mmol/L (3.5-5.1); Sodium 141 mmol/L (136-145)
[2024-12-28 08:37] LABS: Anion Gap 13.2; Aspartate Amino Transferase 64 U/L (15-37); BUN Creatinine Ratio 11.9; Calcium 9.2 mg/dL (8.5-10.1); Estimated GFR (African America >60 (>=60 mL/min/1.73m^2); Estimated GFR (Non-African Ame >60 (>=60 mL/min/1.73m^2); Glucose 132 mg/dL (74-106); Thyroid Stimulating Hormone 2.863 uIU/mL (0.358-3.740)
[2024-12-28] MEDS: ALBUTEROL SULFATE 2.5 MG/3 ML VIAL NEB IH (09:36)
--- NOTE | 2024-12-28 09:42 | RT_ITS ---
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 Findings were considered accurate and reproducible, though it did not meet ATS standards given lack of 3 acceptable maneuvers. Both pre- and post-bronchodilator values utilized for spirometry. Spirometry (based on pre-bronchodilator values): -FEV1/FVC: Reduced @ 51% -FEV1: Severely reduced @ 47% -FVC: Reduced @ 69% -There is a positive bronchodilator response in FEV1 and FVC. Lung volumes by plethysmography (based on pre-bronchodilator values): -RV: Increased @ 209% -TLC: Increased @ 128% Diffusion capacity: -DLCO: Mild reduction @ 64% when corrected for Hb 16g/dL Comparison from 01/09/2024 PFT: -Improvement in FEV1 from 40% -No lung volumes were done -Essentially unchanged DLCO @ 65% Impressions: -Spirometry suggests severe obstruction. There is a positive bronchodilator response. An elevated RV and TLC suggest air trapping and hyperinflation respectively. There is a mildly reduced diffusion capacity. Overall study suggests COPD with a positive bronchodilator response vs. asthma-COPD overlap. Compared to prior PFT, there is slight improvement in spirometry, without any significant change in diffusion capacity. Clinical correlation required. Electronically Signed On 12-29-2024 11:39:40 EST by Gasper Sewell
== END 2024-12-28 08:11 | disposition home or self-care (01) ==
LOC: LAB 08:10
PROVIDERS: PCP Family Medicine; Visit Provider Internal Medicine Cardiovascular Disease
DX: I48.92 Unspecified atrial flutter (principal); Z79.899 Other long term (current) drug therapy
CPT/HCPCS: 36415; 71046; 80048; 84443; 84450; 85018; 94060; 94726; 94729

== ENCOUNTER 2025-03-13 09:04 | Outpatient (OUT) | payer MEDICARE, SELFPAY ==
--- OUTSIDE RECORDS SUMMARY | 2025-03-13 09:08 | XMS_ITS | CCD ---
Author Organization [facility] Care Team Providers Care Angio Technologist Name Role Phone MD Tirso Frausto Primary Care Provider [phone] MD Pola Anders Admit Provider MD Jin Berkowitz Attending Provider MD Ama Morrison Attending Provider [phone] Tirso Frausto Unavailable Unavailable Unavailable MD Marcus Recinos Attending Provider MD Marcus Recinos Referring Provider Tirso Frausto Primary Care Physician Unavailable Unavailable MD Tirso Frausto Primary Care Provider [phone] Jina Rios Unavailable Carlos A Salazar [...] Tirso Frausto MD Primary Care Provider [phone] Tirso Frausto MD Primary Care Provider [phone] Unavailable Primary Care Provider UnavailTirso Boland MD Primary Care Provider [phone] MARCUS RECINOS Attending Unavailable MARCUS RECINOS Referring Unavailable TIRSO FRAUSTO Primary Care Unavailable MARCUS RECINOS Attending Unavailable MARCUS RECINOS Referring Unavailable TIRSO FRAUSTO Primary Care Unavailable JOE GARCÍA Attending Unavailable JOE GARCÍA Attending Unavailable Allergies Allergy Classification Reported Allergen(s) Allergy Type Date of Onset Reaction(s) Facility (16 sources) Ciprofloxacin; Translations: [Ciprofloxacin] Drug Allergy 03-27-[facility] (14 sources) Ciprofloxacin; Translations: [Cipro XR] Drug Allergy Rash [facility] 250 DO Work Phone: (1 source) Ciprofloxacin Drug Allergy 04-19-2015 [facility] (3 sources) Ciprofloxacin; Translations: [CIPROFLOXACIN (MIXTURE)] Drug Allergy 10-14-2023 [facility] Work Phone: Medications Current Medications Medication [...] 2022 9:17am apixaban 5 mg oral tablet (15 sources) Factor Xa Inhibitor Start: 01-20-2022 take 1 tablet by mouth twice daily Eliquis 5 mg oral tablet 5 mg = 1 tab(s), Oral, BID, Blood Thinner Start Date: 04/16/22 Status: Ordered ascorbic acid 226 mg / beta carotene [id number] unt / cuprous oxide 0.8 mg / dl-alpha tocopheryl acetate 200 unt / zinc oxide 34.8 mg oral capsule (3 sources) Vitamin C Start: 04-16-2022 take 1 capsule by mouth once daily PreserVision AREDS oral capsule 1 cap, Oral, Daily, Prophylaxis Start Date: 04/16/22 Status: Ordered take 1 tablet by kyle th every twelve hours vitamins A,C,K-janx-qbgftb (PreserVision AREDS) 2,148 mcg-113 mg-45 mg-17.4mg tablet Take 1 tablet by mouth every 12 hours. Active ascorbic acid 113 mg / copper gluconate 0.4 mg / docosahexaenoic acid 87.5 mg / eicosapentaenoic acid 163 mg / lutein 2.5 mg / tocopherol acetate 100 unt / zeaxanthin 0.5 mg / zinc oxide 17.4 mg oral capsule (7 sources) Vitamin C take 1 capsule by mouth twice daily PreserVision AREDS 2 - 1 Capsule Orally Twice a day Active aspirin 81 mg delayed release oral tablet (15 sources) Platelet Aggregation Inhibitor, Nonsteroidal Anti-inflammatory Drug Start: 06-07-20 End: 06-07-20 take 1 tablet by mouth every week aspirin 81 mg EC tablet Indications: Atrial flutter, unspecified type (Multi) Take 1 tablet (81 mg) by mouth 1 (one) time per week. 06/07/2024 06/07/2025 Active Start: 11-08-2022 take 1 tablet by kyle th every week Aspirin 81 MG Oral Tablet Delayed Release TAKE 1 TABLET Weekly Quantity: 12 Refills: 3 Ordered: 08-Nov-2022 Marcus Recinos MD Start : 08-Nov-2022 Active ferrous sulfate 325 mg oral tablet (5 sources) Start: 10-02-2024 take 1 tablet by mouth in the morning ferrous sulfate 325 (65 Fe) MG tablet Take 1 tablet by mouth in the morning and 1 tablet before bedtime. 10/02/2024 Active take 1 tablet by mouth twice raciel ly ferrous sulfate 325 (65 Fe) MG EC tablet Take 65 mg by mouth 2 times a day. Do not crush, chew, or split. Active furosemide 40 mg oral tablet (20 sources) Loop Diuretic Start: 04-16-2022 take 1 tablet by mouth once daily [...] hours levothyroxine sodium 0.05 mg oral tablet (5 sources) l-Thyroxine take 1 tablet by mouth [...] 12:00am pravastatin sodium 40 mg oral tablet (6 sources) HMG-CoA Reductase Inhibitor Start: 09-11-20 End: [...] 06-Apr-2022 Active rivaroxaban 20 mg oral tablet (13 sources) Factor Xa Inhibitor Start: 05-12-2024 End: 01-06-2025 take 1 tablet by mouth once daily Xarelto 20 mg tablet Indications: Atrial flutter, unspecified type (Multi) Take 1 tablet by mouth once daily 90 tablet 3 05/12/2024 01/06/2025 Discontinued (Therapy completed) Start: 10-11-2023 take 1 tablet by kyle th once daily at mealtime Xarelto 20 mg tablet Take 1 tablet (20 mg) by mouth once daily in the evening. Take with meals. 0 10/11/2023 Active Start: 01-21-2023 take 1 tablet by mouth once da rosa elena Xarelto 20 MG Oral Tablet Take 1 tablet daily Quantity: 90 Refills: 3 Ordered: 21-Jan-2023 Marcus Recinos MD Start : 21-Jan-2023 Active new start Start: 04-24-2022 take 1 tablet by mouth once da rosa elena Xarelto 20 MG Oral Tablet Take 1 [...] PO Daily January 20, 2022 12:00am Vit C,W-Ts-Zhaaj-Lutein- Zeaxan (Preservision Areds-2) 250-90-40-1 mg Capsule (6 sources) Start: 01-20-2022 Vit C,F-Fn-Dpzza-Lut ein-Zeaxan (Preservision Areds-2) 250-90-40-1 mg Capsule Active 1 TAB PO Twice daily January 20, 2022 2:13am Start: 01-20-2022 Vit C,E-Zn-Thread Weaver kz-Zgczvb-Hkdtwc (Preservision Areds-2) 250-90-40-1 mg Capsule Active 1 TAB PO Twice daily January 20, 2022 12:00am Completed/Discontinued Medications Medication Drug Class(es) Dates Sig (Normalized) Sig (Original) [id number] 200 actuat albuterol 0.09 mg/actuat metered dose [...] 2 puffs every 4 hours if needed. Active take 1 puff(s) by in halation every four hours as needed Ventolin HFA 108 (90 Base) MCG/ACT 1 puf f as needed Inhalation every 4 hrs Active digoxin 0.125 mg oral tablet (6 sources) Cardiac Glycoside Start: 01-23-2022 End: 03-27-2022 take 125 ug by mouth once daily Digoxin Discontinued 125 MCG PO Daily January 23, 2022 9:March 27, 2022 8:25am enalapril maleate 5 mg [...] 100 mg oral tablet (20 sources) Start: 2 End: 2 take 1 tablet by mouth once daily Pyridoxine (Vitamin B6) (Vitamin B-6) 100 mg Tablet Discontinued 100 MG PO Daily January 20, 2022 2:13am March 27, 2022 8:27am warfarin sodium 4 mg oral tablet (10 sources) Vitamin K Antagonist Start: 2 Warfarin Sodium 4 MG Oral Tablet 1 tablet daily - being referred to [facility] to manage Quantity: 30 Refills: [...] Chronic Chronic obstructive pulmonary disease and bronchiectasis (12 sources) Chronic obstructive lung disease; Translations: [Chronic airway obstruction, not elsewhere classified] Onset: 10-14-2023 12-04-2023 Chronic Coronary atherosclerosis and other heart disease (1 source) Coronary arteriosclerosis; Translations: [Atherosclerotic heart disease of tribal coronary artery without angina pectoris] 12-04-2023 Chronic Diabetes mellitus with complications (4 sources) Type 2 diabetes mellitus with hyperglycemia; [...] organs (1 source) Prostatitis 01-04-2021 Episodic Mycoses (3 sources) Pain in toe; Translations: [Tinea unguium] 11-26-2024 Episodic Other aftercare (20 sources) Drug therapy finding; Translations: [Long-term (current) use of other medications] Episodic Other aftercare (6 sources) Taking high risk medication; Translations: [Other [...] exertion; Translations: [Other respiratory abnormalities] Episodic Other nutritional; endocrine; and metabolic disorders (20 sources) Obesity; Translations: [Obesity, unspecified] Chronic Other nutritional; endocrine; and metabolic disorders (2 sources) Obese class I; Translations: [Obesity, unspecified] 12-04-2023 Chronic Other nutritional; endocrine; and metabolic disorders (2 sources) Body mass index 30+ - obesity; Translations: [Body mass index (BMI) 30.0-30.9, adult] Onset: 06-03-2024 01-06-2025 Chronic Other nutritional; endocrine; and metabolic disorders (2 sources) Body mass index (BMI) 30.0-30.9, adult; Translations: [Body mass index (BMI) 30.0-30.9, adult] Onset: 01-06-2025 Chronic Bree-; endo-; and myocarditis; cardiomyopathy (except [...] Ex-smoker; Translations: [Personal history of tobacco use] Onset: 06-03-2024 01-06-2025 Episodic Comment on above: QUIT IN 08/2021; Substance-related disorders (1 source) Smoker 03-02-2021 Chronic Comment on above: Added secondary to d ocumentation in Social History. Superficial injury; contusion (2 sources) Contusion of right foot; Translations: [Contusion of right foot, initial encounter] 11-26-2024 Episodic Thyroid disorders (1 source) Hypothyroidism; Translations: [Hypothyroidism, unspecified] 01-06-2025 Chronic Unclassified (1 source) CONTACT W/AND (SUSP) EXPOS [...] 01-01-2023 Episodic Other aftercare (7 sources) Other care home (current) drug therapy; Translations: [OTH CONSTRUCTION TECH CURRENT DRUG THERAPY] Onset: 10-22-2022 Episodic Other liver diseases (4 sources) Abnormal levels of other serum enzymes; Translations: [ABNORMAL LEVELS OTHER SERUM ENZYMES] Onset: 11-02-2022 Episodic Other lower respiratory disease (2 sources) Dyspnea; Translations: [Shortness of breath] Onset: 10-14-2023 10-14-2023 Episodic Other non-traumatic joint disorders (1 source) Pain in unspecified joint; Translations: [PAIN IN UNSPECIFIED JOINT] Onset: 10-13-2022 Episodic Other screening for suspected conditions (not mental disorders or infectious disease) (3 sources) Abnormal results of liver function studies; Translations: [Encounter for screening for malignant neoplasm of prostate] Onset: 10-13-2022 Episodic Unclassified (2 sources) Onset: 12-04-2023 Resolved: 01-06-2025 12-04-2023 Results Test Name Value Interpretation Reference Range Facility ECG 12 [place] 01-06-2025 ECG revealed sinus bradycardia with first-degree AV block, left axis deviation, 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, abnormal ECG [facility] Work Phone: Physician Referralon 024 Physician Referral [id number] Normal [facility] ECG 12 [place] 12-04-2023 ECG revealed normal sinus rhythm with first-degree AV block and left axis deviation [facility] Work Phone: GLYCOHEMOGLOBIN A1Con 2022 ADA RECOMMENDATION SEE BELOW Normal [facility] Comment on above: Result Comment: ADA RECOMMENDED LIMIT 4.0 - 6.0 ADA THERAPEUTIC TARGET < 7.0 ACTION SUGGESTED > 7.0 Performed By: #### A 1C #### [facility] [address] [place] [address] Dr. Igor Hayes Glucose [Mass/Vol] 137 mg/dL Normal [facility] Comment on above: Performed By: #### A 1C #### [facility] [address] [place] [address] Dr. Igor Hayes HbA1c (Bld) [Mass fraction] 6.4 % Critically high 4.5-6.2 [facility] Comment on above: Performed By: #### A 1C #### [facility] [address] [address] [address] Igor Hayes LIPID PROFILEon 03-08-2023 CHOL-HDL RATIO NORM SEE BELOW Normal [facility] Comment on above: Result Comment: 3.3 - 4.4 LOW RISK 4.4 - 7.1 AVERAGE RISK 7.1 - 11.0 MODERATE RISK >11.0 HIGH RISK Performed By: #### A 1C #### [facility] [address] [address] [address] Igor Hayes Cholesterol [Mass/Vol] 181 mg/dL Normal <=200 [facility] Comment on above: Performed By: #### A 1C #### [facility] [address] [address] [address] Igor Hayes Cholesterol in HDL [Mass/Vol] 64 mg/dL Critically high 40-60 [facility] Comment on above: Performed By: #### A 1C #### [facility] [address] [address] [address] Igor Hayes Cholesterol in LDL [Mass/Vol] 99.2 mg/dL Normal [facility] Comment on above: Performed By: #### A 1C #### [facility] [address] [address] [address] Igor Hayes Cholesterol.total/Ch olesterol in HDL [Mass ratio] 2.8 {ratio} Normal [facility] Comment on above: Performed By: #### A 1C #### [facility] [address] [address] [address] Igor Hayes HDL NORMAL > or = 60 mg/dl - LO W CARDIOVASCULAR RISK <40 mg/dl - HIGH CARDIOVASCULAR RISK Normal [facility] Comment on above: Performed By: #### A 1C #### [facility] [address] [address] [address] Igor Hayes LDL CALC NORMAL SEE BELOW Normal [facility] Comment on above: Result Comment: <100 mg/dl OPTIMAL 100 - 129 mg/dl NEAR OR ABOVE OPTIMAL 130 - 159 mg/dl BORDERLINE HIGH 160 - 189 mg/dl HIGH >190 mg/dl VERY HIGH Performed By: #### A 1C #### [facility] [address] [place] [address] Dr. Igor Hayes Triglyceride [Mass/Vol] 89 mg/dL Normal <=150 [facility] Comment on above: Performed By: #### A 1C #### [facility] [address] [place] [address] Dr. Igor Hayes VLDL CALC 17.8 mg/dL Normal [facility] Comment on above: Performed By: #### A 1C #### [facility] [address] [place] [address] Dr. Igor Hayes INFLUENZA A AND B AGon 02-01 INFLUANEGH SEE BELOW Normal [facility] Comment on above: Result Comment: Nega tive for Flu A protein angiten. Infection due to Flu A cannot be ruled out. Flu A angiten in the sample may be below the detection limit of the test. Performed By: #### O BSCRN #### [facility] [address] [place] [address] Dr. Igor Hayes INFLUBNEGH SEE BELOW Normal [facility] Comment on above: Result Comment: Nega tive for Flu B protein antigen. Infection due to Flu B cannot be ruled out. Flu B antigen in the sample may be below the detection limit of the test. Performed By: #### O BSCRN #### [facility] [address] [place] [address] Dr. Igor Hayes INFLUENZA A AG Negative Normal NEGATIVE SEE COMMENT [facility] Comment on above: Performed By: #### O BSCRN #### [facility] [address] [place] [address] Dr. Igor Hayes INFLUENZA B AG Negative Normal NEGATIVE SEE COMMENT [facility] Comment on above: Performed By: #### O BSCRN #### [facility] [address] [place] [address] Dr. Igor Hayes SYMPTOMATIC COVID-19 ANTIGEN on 02-01-2023 EUA Statement SEE BELOW Normal [facility] Comment on above: Result Comment: This [...] sooner. Performed By: #### A 1C #### [facility] [address] [place] [address] Dr. Igor Hayes SARS-CoV-2 (COVID-19) RNA VERONIQUE+probe Ql (Unsp spec) Positive Abnormal NEGATIVE [facility] Comment on above: Performed By: #### A 1C #### [facility] [address] [place] [address] Dr. Igor Hayes HEMOGLOBINon 01-10-2023 Hemoglobin (Bld) [Mass/Vol] 14.4 g/dL Normal 14.0-18.0 [facility] Comment on above: Performed By: #### H GB #### [facility] [address] [place] [address] Dr. Igor Hayes PROF CHEM 8 (BAS METB)on Anion gap [Moles/Vol] 8.4 mmol/L Normal [facility] Comment on above: Performed By: #### O BSCRN #### [facility] [address] [place] [address] Dr. Igor Hayes Calcium [Mass/Vol] 8.9 mg/dL Normal 8.5-10.1 [facility] Comment on above: Performed By: #### O BSCRN #### [facility] [address] [place] [address] Dr. Igor Hayes Chloride [Moles/Vol] 103 mmol/L Normal 98-107 [facility] Comment on above: Performed By: #### O BSCRN #### [facility] [address] [address] [address] Igor Hayes CO2 [Moles/Vol] 31.2 mmol/L Normal 21.0-32.0 [facility] Comment on above: Performed By: #### O BSCRN #### [facility] [address] [address] [address] Igor Hayes Creatinine [Mass/Vol] 1.02 mg/dL Normal 0.70-1.30 [facility] Comment on above: Performed By: #### O BSCRN #### [facility] [address] [address] [address] Igor Hayes EGFR-AF CUBAN >60 Normal >=60 [facility] Comment on above: Performed By: #### O BSCRN #### [facility] [address] [address] [address] Igor Hayes EGFR-NON AF CUBAN >60 Normal >=60 [facility] Comment on above: Performed By: #### O BSCRN #### [facility] [address] [address] [address] Igor Hayes Glucose [Mass/Vol] 133 mg/dL Critically high 74-[address] [facility] Comment on above: Performed By: #### O BSCRN #### [facility] [address] [address] [address] Igor Hayes Potassium [Moles/Vol] 4.6 mmol/L Normal 3.5-5.1 [facility] Comment on above: Performed By: #### O BSCRN #### [facility] [address] [address] [address] Igor Hayes Sodium [Moles/Vol] 138 mmol/L Normal 136-145 [facility] Comment on above: Performed By: #### O BSCRN #### [facility] [address] [address] [address] Igor Hayes Urea nitrogen [Mass/Vol] 17.0 mg/dL Normal 7.0-18.0 [facility] Comment on above: Performed By: #### O BSCRN #### [facility] [address] [address] [address] Igor Hayes Urea nitrogen/Creatinine [Mass ratio] 16.7 mg/mg Normal [facility] Comment on above: Performed By: #### O BSCRN #### [facility] [address] [address] [address] Igor Hayes SGOTon 01-10-2023 AST [Catalytic activity/Vol] 36 U/L Normal 15-37 [facility] Comment on above: Performed By: #### O BSCRN #### [facility] [address] [address] [address] Igor Hayes TSHon 01-10-2023 TSH 4.230 uIU/mL Critically high 0.358-3.74 0 [facility] Comment on above: Performed By: #### O BSCRN #### [facility] [address] [place] [address] Dr. Igor Hayes XR CHEST 2 Von [...] by: DEE BARTON Date: 2023-01-10 13:02 Normal [facility] Prothrombin Time INRon 01-01 INR Coag (PPP) [Relative time] 2.9 {INR} [employer] Other Prothrombin Time INR [facility] [employer] Other Prothrombin Time INRon 12-10 INR Coag (PPP) [Relative time] 2.7 {INR} [employer] Other Prothrombin Time INR [facility] [employer] Other Prothrombin Time INRon 11-26 INR Coag (PPP) [Relative time] 2.6 {INR} [employer] Other Prothrombin Time INR [facility] [employer] Other Prothrombin Time INRon 11-15 INR Coag (PPP) [Relative time] 3.2 {INR} [employer] Other Prothrombin Time INR [facility] [employer] Other LIPID PROFILEon 11-14-2022 CHOL-HDL RATIO NORM SEE BELOW Normal [facility] Comment on above: Result Comment: 3.3 - 4.4 LOW RISK 4.4 - 7.1 AVERAGE RISK 7.1 - 11.0 MODERATE RISK >11.0 HIGH RISK Performed By: #### O BSCRN #### [facility] [address] [address] [address] Igor Hayes Cholesterol [Mass/Vol] 186 mg/dL Normal <=200 [facility] Comment on above: Performed By: #### O BSCRN #### [facility] [address] [address] [address] Igor Hayes Cholesterol in HDL [Mass/Vol] 64 mg/dL Critically high 40-60 [facility] Comment on above: Performed By: #### O BSCRN #### [facility] [address] [address] [address] Igor Hayes Cholesterol in LDL [Mass/Vol] 99.0 mg/dL Normal [facility] Comment on above: Performed By: #### O BSCRN #### [facility] [address] [address] [address] Igor Hayes Cholesterol.total/Ch olesterol in HDL [Mass ratio] 2.9 {ratio} Normal [facility] Comment on above: Performed By: #### O BSCRN #### [facility] [address] [address] [address] Igor Hayes HDL NORMAL > or = 60 mg/dl - LO W CARDIOVASCULAR RISK <40 mg/dl - HIGH CARDIOVASCULAR RISK Normal [facility] Comment on above: Performed By: #### O BSCRN #### [facility] [address] [address] [address] Igor Hayes LDL CALC NORMAL SEE BELOW Normal [facility] Comment on above: Result Comment: <100 mg/dl OPTIMAL 100 - 129 mg/dl NEAR OR ABOVE OPTIMAL 130 - 159 mg/dl BORDERLINE HIGH 160 - 189 mg/dl HIGH >190 mg/dl VERY HIGH Performed By: #### O BSCRN #### [facility] [address] [address] [address] Igor Hayes Triglyceride [Mass/Vol] 115 mg/dL Normal <=150 [facility] Comment on above: Performed By: #### O BSCRN #### [facility] [address] [address] [address] Igor Hayes VLDL CALC 23.0 mg/dL Normal [facility] Comment on above: Performed By: #### O BSCRN #### [facility] [address] [place] [address] Dr. Igor Hayes Tobacco Screening.on 023 Adult depression screening assessment No [facility] 250 DO Work Phone: Fall risk assessment a) No falls within the last year [facility] DO Work Phone: Tobacco use status [facility] b) No [facility] 250 DO Work Phone: AMMONIAon 11-02-2022 Ammonia (P) [Moles/Vol] 12 umol/L Normal [facility] Comment on above: Performed By: #### A 1C #### [facility] [address] [place] [address] Dr. Igor Hayes PROF 14(COMP METB)on 022 Albumin [Mass/Vol] 3.9 g/dL Normal 3.4-5.0 [facility] Comment on above: Performed By: #### A 1C #### [facility] [address] [address] [address] Igor Hayes Albumin/Globulin [Mass ratio] 1.1 {ratio} Normal [facility] Comment on above: Performed By: #### A 1C #### [facility] [address] [address] [address] Igor Hayes ALP [Catalytic activity/Vol] 48 U/L Normal 46-116 [facility] Comment on above: Performed By: #### A 1C #### [facility] [address] [address] [address] Igor Hayes ALT [Catalytic activity/Vol] 70 U/L Critically high 16-63 [facility] Comment on above: Performed By: #### A 1C #### [facility] [address] [address] [address] Igor Hayes Anion gap [Moles/Vol] 13.5 mmol/L Normal [facility] Comment on above: Performed By: #### A 1C #### [facility] [address] [place] [address] Dr. Igor Hayes AST [Catalytic activity/Vol] 41 U/L Critically high 15-37 [facility] Comment on above: Performed By: #### A 1C #### [facility] [address] [place] [address] Dr. Igor Hayes Bilirubin [Mass/Vol] 0.6 mg/dL Normal 0.2-1.0 [facility] Comment on above: Performed By: #### A 1C #### [facility] [address] [place] [address] Dr. Igor Hayes Calcium [Mass/Vol] 9.0 mg/dL Normal 8.5-10.1 [facility] Comment on above: Performed By: #### A 1C #### [facility] [address] [place] [address] Dr. Igor Hayes Chloride [Moles/Vol] 102 mmol/L Normal 98-107 [facility] Comment on above: Performed By: #### A 1C #### [facility] [address] [address] [address] Igor Hayes CO2 [Moles/Vol] 28.9 mmol/L Normal 21.0-32.0 [facility] Comment on above: Performed By: #### A 1C #### [facility] [address] [place] [address] Dr. Igor Hayes Creatinine [Mass/Vol] 1.14 mg/dL Normal 0.70-1.30 [facility] Comment on above: Performed By: #### A 1C #### [facility] Laboratory [address] [place] [address] Dr. Igor Hayes EGFR-AF CUBAN >60 Normal >=60 [facility] Comment on above: Performed By: #### A 1C #### [facility] [address] [address] [address] Igor Hayes EGFR-NON AF CUBAN >60 Normal >=60 [facility] Comment on above: Performed By: #### A 1C #### [facility] [address] [place] [address] Dr. Igor Hayes Globulin (S) [Mass/Vol] 3.7 g/dL Normal [facility] Comment on above: Performed By: #### A 1C #### [facility] [address] [place] [address] Dr. Igor Hayes Glucose [Mass/Vol] 166 mg/dL Critically high 74-[address] [facility] Comment on above: Performed By: #### A 1C #### [facility] [address] [place] [address] Dr. Igor Hayes Potassium [Moles/Vol] 4.4 mmol/L Normal 3.5-5.1 [facility] Comment on above: Performed By: #### A 1C #### [facility] [address] [place] [address] Dr. Igor Hayes Protein [Mass/Vol] 7.6 g/dL Normal 6.4-8.2 [facility] Comment on above: Performed By: #### A 1C #### [facility] [address] [place] [address] Dr. Igor Hayes Sodium [Moles/Vol] 140 mmol/L Normal 136-145 [facility] Comment on above: Performed By: #### A 1C #### [facility] [address] [place] [address] Dr. Igor Hayes Urea nitrogen [Mass/Vol] 18.0 mg/dL Normal 7.0-18.0 [facility] Comment on above: Performed By: #### A 1C #### [facility] [address] [place] [address] Dr. Igor Hayes Urea nitrogen/Creatinine [Mass ratio] 15.8 mg/mg Normal [facility] Comment on above: Performed By: #### A 1C #### [facility] [address] [place] [address] Dr. Igor Hayes HEMOGLOBINon 10-22-2022 Hemoglobin (Bld) [Mass/Vol] 15.3 g/dL Normal 14.0-18.0 [facility] Comment on above: Performed By: #### A 1C #### [facility] [address] [place] [address] Dr. Igor Hayes PROF CHEM 8 (BAS METB)on Anion gap [Moles/Vol] 12.9 mmol/L Normal [facility] Comment on above: Performed By: #### A AD COELHO, TSH #### [facility] [address] [place] [address] Dr. Igor Hayes Calcium [Mass/Vol] 9.2 mg/dL Normal 8.5-10.1 [facility] Comment on above: Performed By: #### A AD COELHO, TSH #### [facility] [address] [place] [address] Dr. Igor Hayes Chloride [Moles/Vol] 103 mmol/L Normal 98-107 The [facility] Comment on above: Performed By: #### A ST BMP, TSH #### [facility] [address] [place] [address] Dr. Igor Hayes CO2 [Moles/Vol] 29.7 mmol/L Normal 21.0-32.0 [facility] Comment on above: Performed By: #### A ST BMP, TSH #### [facility] [address] [place] [address] Dr. Igor Hayes Creatinine [Mass/Vol] 1.16 mg/dL Normal 0.70-1.30 [facility] Comment on above: Performed By: #### A ST BMP, TSH #### [facility] [address] [address] [address] Igor Hayes EGFR-AF CUBAN >60 Normal >=60 [facility] Comment on above: Performed By: #### A ST, BMP, TSH #### [facility] [address] [address] [address] Igor Hayes EGFR-NON AF CUBAN >60 Normal >=60 [facility] Comment on above: Performed By: #### A ST, BMP, TSH #### [facility] [address] [address] [address] Igor Hayes Glucose [Mass/Vol] 125 mg/dL Critically high 74-[address] [facility] Comment on above: Performed By: #### A ST, BMP, TSH #### [facility] [address] [address] [address] Igor Hayes Potassium [Moles/Vol] 4.6 mmol/L Normal 3.5-5.1 [facility] Comment on above: Performed By: #### A ST, BMP, TSH #### [facility] [address] [address] [address] Igor Hayes Sodium [Moles/Vol] 141 mmol/L Normal 136-145 [facility] Comment on above: Performed By: #### A ST, BMP, TSH #### [facility] [address] [address] [address] Igor Hayes Urea nitrogen [Mass/Vol] 17.0 mg/dL Normal 7.0-18.0 [facility] Comment on above: Performed By: #### A ST, BMP, TSH #### [facility] [address] [address] [address] Igor Hayes Urea nitrogen/Creatinine [Mass ratio] 14.7 mg/mg Normal [facility] Comment on above: Performed By: #### A ST, BMP, TSH #### [facility] [address] [address] [address] Igor Hayes SGOTon 10-22-2022 AST [Catalytic activity/Vol] 49 U/L Critically high 15-37 [facility] Comment on above: Performed By: #### A ST, BMP, TSH #### [facility] [address] [address] [address] Igor Hayes TSHon 10-22-2022 TSH 4.171 uIU/mL Critically high 0.358-3.74 0 [facility] Comment on above: Performed By: #### A ST, BMP, TSH #### [facility] [address] [address] [address] Igor Hayes US SINGLE QUAD RT [...] STANFORD GARCÍA Date: 2022-10-22 20:43 Normal The [facility] XR CHEST 2 Von 10-22-2022 XR CHEST 2 V EXAM: Chest x-ray HISTORY: Atrial flutter COMPARISON: 01/19/2022 TECHNIQUE: Frontal and lateral chest FINDINGS: Heart and vascularity are unremarkable. Lungs are expanded and free of focal infiltrates. Tortuosity of the thoracic aorta is noted. Spondylosis of the spine is noted. IMPRESSION: No acute heart or lung disease identified. Electronically authenticated by: STANFORD GARCÍA Date: 2022-10-22 20:38 Normal [facility] INSULINon 10-10-2022 Insulin 19.8 uIU/mL Normal 2.6-24.9 [facility] Comment on above: Performed By: #### A 1C #### [facility] [address] [place] [address] Dr. Igor Hayes CBC AUTO DIFFon 10-09-2022 BASO # 0.1 103/ul Normal 0.0-0.1 [facility] Comment on above: Performed By: #### A 1C #### [facility] [address] [place] [address] Dr. Igor Hayes Basophils/100 WBC (Bld) 1.7 % Normal 0.2-2.0 The [facility] Comment on above: Performed By: #### A 1C #### [facility] [address] [place] [address] Dr. Igor Hayes EO # 0.2 103/ul Normal 0.0-0.7 The [facility] Comment on above: Performed By: #### A 1C #### [facility] [address] [place] [address] Dr. Igor Hayes Eosinophils/100 WBC (Bld) 3.1 % Normal 0.9-7.0 [facility] Comment on above: Performed By: #### A 1C #### [facility] [address] [place] [address] Dr. Igor Hayes Erythrocyte distribution width (RBC) [Ratio] 12.9 % Normal 11.0-15.0 [facility] Comment on above: Performed By: #### A 1C #### [facility] [address] [place] [address] Dr. Igor Hayes Hematocrit (Bld) [Volume fraction] 45.5 % Normal 42.0-54.0 [facility] Comment on above: Performed By: #### A 1C #### [facility] [address] [place] [address] Dr. gIor Hayes Hemoglobin (Bld) [Mass/Vol] 15.1 g/dL Normal 14.0-18.0 [facility] Comment on above: Performed By: #### A 1C #### [facility] [address] [place] [address] Dr. Igor Hayes IG # 0.01 10e3/ul Normal 0.00-0.03 The [facility] Comment on above: Performed By: #### A 1C #### [facility] [address] [place] [address] Dr. Igor Hayes IG % 0.2 % Normal 0.0-0.5 The [facility] Comment on above: Performed By: #### A 1C #### [facility] [address] [place] [address] Dr. Igor Hayes LYMPH # 1.2 103/ul Normal 1.2-3.8 The [facility] Comment on above: Performed By: #### A 1C #### [facility] [address] [place] [address] Dr. Igor Hayes Lymphocytes/100 WBC (Bld) 23.9 % Normal 20.5-60.0 The [facility] Comment on above: Performed By: #### A 1C #### [facility] [address] [place] [address] Dr. Igor Hayes MANUAL DIFF REQ NO Normal [facility] Comment on above: Performed By: #### A 1C #### [facility] [address] [place] [address] Dr. Igor Hayes MCH (RBC) [Entitic mass] 29.3 pg Normal 25.9-34.0 [facility] Comment on above: Performed By: #### A 1C #### [facility] [address] [place] [address] Dr. Igor Hayes MCHC (RBC) [Mass/Vol] 33.2 g/dL Normal 29.9-35.2 The [facility] Comment on above: Performed By: #### A 1C #### [facility] [address] [place] [address] Dr. Igor Hayes MCV (RBC) [Entitic vol] 88.2 fL Normal 80.0-94.0 The [facility] Comment on above: Performed By: #### A 1C #### [facility] [address] [place] [address] Dr. Igor Hayes MONO # 0.6 103/ul Normal 0.3-0.8 The [facility] Comment on above: Performed By: #### A 1C #### [facility] [address] [place] [address] Dr. Igor Hayes Monocytes/100 WBC (Bld) 12.3 % Critically high 1.7-12.0 [facility] Comment on above: Performed By: #### A 1C #### [facility] [address] [place] [address] Dr. Igor Hayes NEUT # 3.1 103/ul Normal 1.4-6.5 [facility] Comment on above: Performed By: #### A 1C #### [facility] [address] [place] [address] Dr. Igor Hayes Neutrophils/100 WBC (Bld) 58.8 % Normal 43.0-75.0 [facility] Comment on above: Performed By: #### A 1C #### [facility] [address] [place] [address] Dr. Igor Hayes Platelet mean volume (Bld) [Entitic vol] 10.0 fL Normal 9.5-13.5 [facility] Comment on above: Performed By: #### A 1C #### [facility] [address] [place] [address] Dr. Igor Hayes PLT 234 103/ul Normal 150-450 [facility] Comment on above: Performed By: #### A 1C #### [facility] [address] [place] [address] Dr. Igor Hayes RBC 5.16 106/ul Normal 4.70-6.10 [facility] Comment on above: Performed By: #### A 1C #### [facility] [address] [place] [address] Dr. Igor Hayes WBC 5.2 103/ul Normal 4.0-11.0 [facility] Comment on above: Performed By: #### A 1C #### [facility] [address] [place] [address] Dr. Igor Hayes GLYCOHEMOGLOBIN A1Con 2021 ADA RECOMMENDATION SEE BELOW Normal [facility] Comment on above: Result Comment: ADA RECOMMENDED LIMIT 4.0 - 6.0 ADA THERAPEUTIC TARGET < 7.0 ACTION SUGGESTED > 7.0 Performed By: #### A 1C #### [facility] [address] [address] [address] Igor Hayes Glucose [Mass/Vol] 123 mg/dL Normal [facility] Comment on above: Performed By: #### A 1C #### [facility] [address] [place] [address] Dr. Igor Hayes HbA1c (Bld) [Mass fraction] 5.9 % Normal 4.5-6.2 [facility] Comment on above: Performed By: #### A 1C #### [facility] [address] [place] [address] Dr. Igor Hayes OCC BLD IMMUNO SCREENon OCCULT BLOOD Negative Normal NEGATIVE [facility] Comment on above: Performed By: #### O BSCRN #### [facility] [address] [place] [address] Dr. Igor Hayes PROF 14(COMP METB)on 022 Albumin [Mass/Vol] 3.9 g/dL Normal 3.4-5.0 [facility] Comment on above: Performed By: #### U THUY, CMP #### [facility] [address] [place] [address] Dr. Igor Hayes Albumin/Globulin [Mass ratio] 1.0 {ratio} Normal [facility] Comment on above: Performed By: #### U THUY, CMP #### [facility] [address] [place] [address] Dr. Igor Hayes ALP [Catalytic activity/Vol] 45 U/L Critically low 46-116 The [facility] Comment on above: Performed By: #### U THUY, CMP #### [facility] [address] [place] [address] Dr. Igor Hayes ALT [Catalytic activity/Vol] 83 U/L Critically high 16-63 The [facility] Comment on above: Performed By: #### U THUY, CMP #### [facility] [address] [place] [address] Dr. Igor Hayes Anion gap [Moles/Vol] 11.6 mmol/L Normal [facility] Comment on above: Performed By: #### U THUY, CMP #### [facility] [address] [address] [address] Igor Hayes AST [Catalytic activity/Vol] 44 U/L Critically high 15-37 [facility] Comment on above: Performed By: #### U THUY, CMP #### [facility] [address] [address] [address] Igor Hayes Bilirubin [Mass/Vol] 0.7 mg/dL Normal 0.2-1.0 [facility] Comment on above: Performed By: #### U THUY, CMP #### [facility] [address] [address] [address] Igor Hayes Calcium [Mass/Vol] 8.8 mg/dL Normal 8.5-10.1 [facility] Comment on above: Performed By: #### U THUY, CMP #### [facility] [address] [address] [address] Igor Hayes Chloride [Moles/Vol] 102 mmol/L Normal 98-107 The [facility] Comment on above: Performed By: #### U THUY, CMP #### [facility] [address] [address] [address] Igor Hayes CO2 [Moles/Vol] 29.1 mmol/L Normal 21.0-32.0 [facility] Comment on above: Performed By: #### U THUY, CMP #### [facility] [address] [address] [address] Igor Hayes Creatinine [Mass/Vol] 1.02 mg/dL Normal 0.70-1.30 The [facility] Comment on above: Performed By: #### U THUY, CMP #### [facility] [address] [place] [address] Dr. Igor Hayes EGFR-AF CUBAN >60 Normal >=60 [facility] Comment on above: Performed By: #### U THUY, CMP #### [facility] [address] [place] [address] Dr. Igor Hayes EGFR-NON AF CUBAN >60 Normal >=60 [facility] Comment on above: Performed By: #### U THUY, CMP #### [facility] [address] [address] [address] Igor Hayes Globulin (S) [Mass/Vol] 3.9 g/dL Normal [facility] Comment on above: Performed By: #### U THUY, CMP #### [facility] [address] [address] [address] Igor Hayes Glucose [Mass/Vol] 132 mg/dL Critically high 74-106 [facility] Comment on above: Performed By: #### U THUY, CMP #### [facility] [address] [address] [address] Igor Hayes Potassium [Moles/Vol] 4.7 mmol/L Normal 3.5-5.1 [facility] Comment on above: Performed By: #### U THUY, CMP #### [facility] [address] [place] [address] Dr. Igor Hayes Protein [Mass/Vol] 7.8 g/dL Normal 6.4-8.2 [facility] Comment on above: Performed By: #### U THUY, CMP #### [facility] [address] [place] [address] Dr. Igor Hayes Sodium [Moles/Vol] 138 mmol/L Normal 136-145 [facility] Comment on above: Performed By: #### U THUY, CMP #### [facility] [address] [place] [address] Dr. Igor Hayes Urea nitrogen [Mass/Vol] 16.0 mg/dL Normal 7.0-18.0 [facility] Comment on above: Performed By: #### U THUY, CMP #### [facility] [address] [place] [address] Dr. Igor Hayes Urea nitrogen/Creatinine [Mass ratio] 15.7 mg/mg Normal [facility] Comment on above: Performed By: #### U THUY, CMP #### [facility] [address] [place] [address] Dr. Igor Hayes URIC ACID SERUMon 10-09-2022 Urate [Mass/Vol] 4.9 mg/dL Normal 3.5-7.2 [facility] Comment on above: Performed By: #### U THUY, CMP #### [facility] [address] [address] [address] Igor Hayes Aspartate Amino Transferaseo n 07-30-2022 AST [Catalytic activity/Vol] 44 U/L High 10-42 [facility] Comment on above: Order Comment: PT FA STED 12 HRS Performed By: #### T SH3, BMP, AST #### [facility] [address] Basic Metabolic Panelon 07-06 Anion gap [Moles/Vol] 13.1 mmol/L Normal 6.0-15.0 [facility] Comment on above: Order Comment: PT FA STED 12 HRS Performed By: #### T SH3, BMP, AST #### [facility] [address] Calcium [Mass/Vol] 9.4 mg/dL Normal 8.2-10.2 [facility] Comment on above: Order Comment: PT FA STED 12 HRS Performed By: #### T SH3, BMP, AST #### [facility] [address] Chloride [Moles/Vol] 101 mmol/L Normal 95-114 [facility] Comment on above: Order Comment: PT FA STED 12 HRS Performed By: #### T SH3, BMP, AST #### [facility] [address] CO2 [Moles/Vol] 27.5 mmol/L Normal 22.0-30.0 [facility] Comment on above: Order Comment: PT FA STED 12 HRS Performed By: #### T SH3, BMP, AST #### [facility] [address] [place] [address] [place] Creatinine [Mass/Vol] 1.03 mg/dL Normal 0.64-1.27 [facility] Comment on above: Order Comment: PT FA STED 12 HRS Performed By: #### T SH3, BMP, AST #### [facility] [address] [place] [address] [place] Estimated GFR ( Mary > 60 Normal [facility] Comment on above: Order Comment: PT FA STED 12 HRS Result Comment: GFR estimated reference range: According to KDOQI guidelines, <60 ml/min/1.73m2 is sufficient to diagnose a patient with chronic kidney disease. Performed By: #### T AD HEAD, AST #### [facility] [address] Estimated GFR (Non- Am > 60 Normal [facility] Comment on above: Order Comment: PT FA STED 12 HRS Performed By: #### T AD HEAD, AST #### [facility] [address] Glucose [Mass/Vol] 111 mg/dL High 70-100 [facility] Comment on above: Order Comment: PT FA STED 12 HRS Result Comment: [place] om Glucose Reference Range is dependent on time and content of last meal. Glucose of more than 200 mg/dL in a nonstressed, ambulatory subject supports the diagnosis of Diabetes Mellitus. ADA recommended reference range Performed By: #### T AD HEAD, AST #### [facility] [address] Potassium [Moles/Vol] 4.6 mmol/L Normal 3.5-5.1 [facility] Comment on above: Order Comment: PT FA STED 12 HRS Performed By: #### T AD HEAD, AST #### [facility] [address] [id number] [place] Sodium [Moles/Vol] 137 mmol/L Normal 136-146 [facility] Comment on above: Order Comment: PT FA STED 12 HRS Performed By: #### T AD HEAD, AST #### [facility] [address] [id number] [place] Urea nitrogen [Mass/Vol] 15 mg/dL Normal 9-23 [facility] Comment on above: Order Comment: PT FA STED 12 HRS Performed By: #### T AD HEAD, AST #### [address] [place] [id number] [facility] No Panel Informationon 07-30 13.1\S\13.1 Normal 6.0-15.0 -[facility] 250 DO Work Phone: 9.4\S\9.4 Normal 8.2-10.2 [facility] Katie mcmahon 250 DO Work Phone: 27.5\S\27.5 Normal 22.0-30.0 [facility] Katie mcmahon 250 DO Work Phone: [phone] 101\S\101 Normal 95-114 [facility] Katie mcmahon 250 DO Work Phone: [phone] 4.6\S\4.6 Normal 3.5-5.1 [facility] Katie mcmahon 250 DO Work Phone: 137\S\137 Normal 136-146 [facility] Katie mcmahon 250 DO Work Phone: > 60 Normal [facility] Katie mcmahon 250 DO Work Phone: Comment on above: GFR estimated refere nce range: According to KDOQI guidelines, <60 ml/min/1.73m2 is sufficient to diagnose a patient with chronic kidney disease. 1.03\S\1.03 Normal 0.64-1.27 [facility] Katie mcmahon 250 DO Work Phone: 15\S\15 Normal 9-23 [facility] Katie mcmahon 250 DO Work Phone: 111\S\111 above high threshold 70-100 [facility] Katie mcmahon 250 DO Work Phone: Comment on above: Random Glucose Refer ence Range is dependent on time and content of last meal. Glucose of more than 200 mg/dL in a nonstressed, ambulatory subject supports the diagnosis of Diabetes Mellitus. ADA recommended reference range 44\S\44 above high threshold 10-[facility] DO Work Phone: 3.34\S\3.34 Normal 0.45-5.33 [facility] Katie mcmahon 250 DO Work Phone: Comment on above: PERFORMED BY:[facility] [id number] MEDICAL DIRECTORSTEVEN NASH M.D. Radiologyon 07-30-2022 XR Chest 2 Views Normal -[facility] 250 DO Work Phone: Thyroid Stimulating Hormoneo n 07-30-2022 TSH Qn 3.34 m[IU]/L Normal 0.45-5.33 [facility] Comment on above: Order Comment: PT FA STED 12 HRS Result Comment: PERF ORMED BY: [facility] [address] [id number] PATHOLOGIST VOCATIONAL AIDE STEVEN NASH M.D. Performed By: #### T SH3, BMP, AST #### [place] [id number] [facility] XR chest 2V*on 07-30-2022 XR chest 2V* [facility] [address] [place] [address] [place] [address] XRay Report Signed Patient: Remedios Magaña MR#: [id number] 4 : 1955 Acct:[id number] Age/Sex: 66 / M ADM Date: 07/30/22 Loc: RT Room: Type: [facility] Attending Dr: Marcus Recinos MD Copies to: Marcus Recinos MD, [facility] Ordering Provider: Marcus Recinos MD, [facility] Date of Service: 07/30/22 XR/XR chest 2V*: Z79.899, I48.92 Chest 2 views CLINICAL HISTORY: High risk medication use. COMPARISON: Chest 04/26/2022 FINDINGS: Heart is normal in size. Lungs are clear. No free air. XR/XR chest 2V* IMPRESSION: NO ACUTE CARDIOPULMONARY ABNORMALITY. Impression dictated by: Walt Miller Jr., D.O.07/30/2022 1:46 PM Dictation Location: [place] [address] Transcribed By: [facility] 07/30/22 1346 Dictated By: Walt Miller Jr, DO 07/30/22 1346 Signed By: 07/30/22 1346 Normal [facility] Aspartate Amino Transferaseo n 04-26-2022 AST [Catalytic activity/Vol] 46 U/L High 10-42 [facility] Comment on above: Performed By: #### T SH3, AST, BMP #### [facility] [address] Basic Metabolic Panelon 04-05 Calcium [Mass/Vol] 9.5 mg/dL Normal 8.2-10.2 [facility] Comment on above: Performed By: #### T SH3, AST, BMP #### [facility] [address] Chloride [Moles/Vol] 101 mmol/L Normal 95-114 [facility] [facility] Comment on above: Performed By: #### T SH3, AST, BMP #### [facility] [address] CO2 [Moles/Vol] 26.8 mmol/L Normal 22.0-30.0 [facility] Comment on above: Performed By: #### T SH3, AST, BMP #### [facility] [address] Creatinine [Mass/Vol] 1.05 mg/dL Normal 0.64-1.27 [facility] Comment on above: Performed By: #### T SH3, AST, BMP #### [facility] [address] Estimated GFR ( Mary > 60 [facility] Comment on above: Result Comment: GFR estimated reference range: According to KDOQI guidelines, <60 ml/min/1.73m2 is sufficient to diagnose a patient with chronic kidney disease. Performed By: #### T SH3, AST, BMP #### [facility] [address] [place] [address] [place] Estimated GFR (Non- Am > 60 [facility] Comment on above: Performed By: #### T SH3, AST, BMP #### [facility] [address] [place] [id number] [place] Glucose [Mass/Vol] 123 mg/dL High 70-100 [facility] Comment on above: Result Comment: [place] Glucose Reference Range is dependent on time and content of last meal. Glucose of more than 200 mg/dL in a nonstressed, ambulatory subject supports the diagnosis of Diabetes Mellitus. ADA recommended reference range Performed By: #### T SH3, AST, BMP #### [facility] [address] [place] [id number] [place] Potassium [Moles/Vol] 4.9 mmol/L Normal 3.5-5.1 [facility] Comment on above: Performed By: #### T SH3, AST, BMP #### [facility] [address] [place] [id number] [place] Sodium [Moles/Vol] 138 mmol/L Normal 136-146 [facility] Comment on above: Performed By: #### T SH3, AST, BMP #### [facility] [address] [place] [id number] [place] Urea nitrogen [Mass/Vol] 16 mg/dL Normal 07-27 [facility] Comment on above: Performed By: #### T SH3, AST, BMP #### [facility] [address] [place] [id number] [place] Creatinine and Glomerular fi ltration rate.predicted panel (S/P/Bld)Ordered By: Marcus Recinos on 04-26-2022 Creatinine [Mass/Vol] 1.05 mg/dL 0.64-1.27 [facility] Estimated glomerular filtrat ion rate (GFR) non- AmericanOrdered By: Marcus Recinos on 04-26-2022 GFR/1.73 sq M.predicted among non-blacks MDRD (S/P/Bld) [Vol rate/Area] > 60 mL/Min [facility] No Panel InformationOrdered By: Marcus Recinos on 04-26-2022 Estimated GFR () > 60 mL/Min [facility] Comment on above: GFR estimated refere nce range: According to KDOQI guidelines, <60 ml/min/1.73m2 is sufficient to diagnose a patient with chronic kidney disease. Pharmacy Creatinine Clearance (Chem N/A [facility] No Panel Informationon 04-26 9.5\S\9.5 Normal 8.2-10.2 [facility] Katie mcmahon 250 DO Work Phone: [phone] 26.8\S\26.8 Normal 22.0-30.0 [facility] Katie mcmahon 250 DO Work Phone: [phone] 101\S\101 Normal 95-114 [facility] Katie mcmahon 250 DO Work Phone: [phone] 4.9\S\4.9 Normal 3.5-5.1 [facility] Katie mcmahon 250 DO Work Phone: [phone] 138\S\138 Normal 136-146 [facility] Katie mcmahon 250 DO Work Phone: > 60 Normal [facility] Katie mcmahon 250 DO Work Phone: Comment on above: GFR estimated refere nce range: According to KDOQI guidelines, <60 ml/min/1.73m2 is sufficient to diagnose a patient with chronic kidney disease. 1.05\S\1.05 Normal 0.64-1.27 [facility] Katie mcmahon 250 DO Work Phone: [phone] 16\S\16 Normal 9-23 [facility] Katie mcmahon 250 DO Work Phone: [phone] 123\S\123 above high threshold 70-100 [facility] Katie mcmahon 250 DO Work Phone: Comment on above: Random Glucose Refer ence Range is dependent on time and content of last meal. Glucose of more than 200 mg/dL in a nonstressed, ambulatory subject supports the diagnosis of Diabetes Mellitus. ADA recommended reference range 46\S\46 above high threshold 10-42 [facility] Work Phone: [phone] 4.75\S\4.75 Normal 0.45-5.33 [facility] DO Work Phone: [phone] Comment on above: PERFORMED BY:[place] [address] [address] [place], [place] [id number] MEDICAL DIRECTORSTEVEN NASH M.D. Radiologyon 04-26-2022 XR Chest 2 Views Normal [facility] 250 DO Work Phone: Serum or plasma aspartate am inotransferase measurement (enzymatic activity/volume)Ordered By: Marcus Recinos on 04-26-2022 AST [Catalytic activity/Vol] 46 U/L 10-42 [facility] Serum or plasma calcium tiera urement (mass/volume)Ordered By: Marcus Recinos on 04-26-2022 Calcium [Mass/Vol] 9.5 mg/dL 8.2-10.2 [facility] Serum or plasma chloride marly surement (moles/volume)Ordered By: Marcus Recinos on 04-26-2022 Chloride [Moles/Vol] 101 mmol/L 95-114 [facility] Serum or plasma glucose tiera urement (mass/volume)Ordered By: Marcus Recinos on 04-26-2022 Glucose [Mass/Vol] 123 mg/dL 70-100 [facility] Comment on above: ADA recommended refe rence range Random Glucose Reference Range is dependent on time and content of last meal. Glucose of more than 200 mg/dL in a nonstressed, ambulatory subject supports the diagnosis of Diabetes Mellitus. Serum or plasma potassium me asurement (moles/volume)Ordered By: Marcus Recinos on 04-26-2022 Potassium [Moles/Vol] 4.9 mmol/L 3.5-5.1 [facility] Serum or plasma sodium measu rement (moles/volume)Ordered By: Marcus Recinos on 04-26-2022 Sodium [Moles/Vol] 138 mmol/L 136-146 [facility] Serum or plasma total carbon dioxide measurement (moles/volume)Ordered By: Marcus Recinos on 04-26-2022 CO2 [Moles/Vol] 26.8 mmol/L 22.0-30.0 [facility] Serum or plasma urea nitroge n measurement (mass/volume)Ordered By: Marcus Recinos on 04-26-2022 Urea nitrogen [Mass/Vol] 16 mg/dL 9-23 [facility] TSH DL <= 0.005 mIU/L QnOrde red By: Marcus Recinos on 04-26-2022 TSH Qn 4.75 m[IU]/L 0.45-5.33 [facility] Thyroid Stimulating Hormoneo n 04-26-2022 TSH Qn 4.75 m[IU]/L Normal 0.45-5.33 [facility] Comment on above: Result Comment: PERF ORMED BY: [place] [address] PATHOLOGIST VOCATIONAL AIDE STEVEN NASH M.D. Performed By: #### T SH3, AST, BMP #### [address] XR chest 2V*on 04-26-2022 XR chest 2V* [facility] [address] [place] [address] [place] [address] XRay Report Signed Patient: Remedios Magaña MR#: [id number] 4 : 1955 Acct:[id number] Age/Sex: 66 / M ADM Date: 04/26/22 Loc: RT Room: Type: [facility] Attending Dr: Marcus Recinos MD Copies to: Marcus Recinos MD, [facility] Ordering Provider: Marcus Recinos MD, [facility] Date of Service: 04/26/22 XR/XR chest 2V*: I48.92,Z79.899 PA AND LATERAL CHEST: CLINICAL HISTORY: A. Fib. 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 COMPARISON: Chest 01/21/2022 FINDINGS: Heart is normal in size. Lungs are clear. No free air. Osseous structures demonstrate degenerative change. XR/XR chest 2V* IMPRESSION: NO ACUTE CARDIOPULMONARY ABNORMALITY. Impression dictated by: Walt Miller Jr., D.O.04/26/2022 1:38 PM Dictation Location: [place] [address] Transcribed By: [facility] 04/26/22 1338 Dictated By: Walt Miller Jr, DO 04/26/22 1337 Signed By: 04/26/22 1338 Normal [facility] Office Visit (Cardiology)on 04-24-2022 Follow-up visit Diagnoses/Problems [...] rashes. Neurologi (more content not included)... Normal [facility] Tobacco Screening.on 022 Adult depression screening assessment No [facility] 250 DO Work Phone: Fall risk assessment a) No falls within the last year [facility] 250 DO Work Phone: Tobacco use status CP b) No [facility] mcmahon 250 DO Work Phone: No Panel Informationon 03-27 135\S\135 below low threshold 136-146 [facility] 250 DO Work Phone: 4.7\S\4.7 Normal 3.5-5.1 [facility] 250 DO Work Phone: 99\S\99 Normal 95-114 [facility] 250 DO Work Phone: [phone] 25.4\S\25.4 Normal 22.0-30.0 [facility] 250 DO Work Phone: Comment on above: PERFORMED BY:[place] [id number] [place], [place] [id number] MEDICAL DIRECTORSTEVEN NASH M.D. Serum or plasma chloride marly surement (moles/volume)Ordered By: Marcus Recinos on 03-27-2022 Chloride [Moles/Vol] 99 mmol/L 95-114 [facility] Serum or plasma potassium me asurement (moles/volume)Ordered By: Marcus Recinos on 03-27-2022 Potassium [Moles/Vol] 4.7 mmol/L 3.5-5.1 [facility] Serum or plasma sodium measu rement (moles/volume)Ordered By: Marcus Recinos on 03-27-2022 Sodium [Moles/Vol] 135 mmol/L 136-146 [facility] Serum or plasma total carbon dioxide measurement (moles/volume)Ordered By: Marcus Recinos on 03-27-2022 CO2 [Moles/Vol] 25.4 mmol/L 22.0-30.0 [facility] COVID-19 SOFIAOrdered By: Lincoln Recinos on 03-23-2022 SARS-CoV+SARS-CoV-2 (COVID-19) Ag IA.rapid Ql (Resp) Negative Negative [facility] Comment on above: This is a duplicate Larisa SARS Antigen (TYSON) result to be used for statistical tracking purpose only. Laboratory - Microbiology an d Antimicrobial susceptibilityon 03-23-2022 SARS-CoV-2 (COVID-19) RNA VERONIQUE+probe Ql (Unsp spec) [facility] y 250 DO Work Phone: No Panel InformationOrdered By: Marcus Recinos on 03-23-2022 SARS Antigen (LFIA) [facility] No Panel Informationon 03-23 Negative Normal Negative [facility] y 250 DO Work Phone: Comment on above: This is a duplicate Larisa SARS Antigen (TYSON) result to be used for statistical tracking purpose only.PERFORMED BY:[place] [address] [place], [place] [phone] MEDICAL DIRECTORSTEVEN NASH M.D. Covid-19 PCR (CVDTB)on 03-04 SARS-CoV-2 (COVID-19) RNA VERONIQUE+probe Ql (Unsp spec) Not detected Normal NOT DETECTED [facility] Comment on above: Result Comment: This test is not yet approved or cleared by the [place] FDA. When there are no FDA-approved or cleared tests available, and other criteria are met, FDA can make tests available under an emergency access mechanism called an Emergency Use Authorization (EUA). The EUA for this test is supported by the [place] of Health and Human Service's (HHS's) declaration [...] SARS-CoV-2. Performed By: #### C VDTB #### [facility] [address] [place] [address] Dr. Igor Hayes INFLUENZA A AND B AGon 03-15 [facility] SEE BELOW Normal [facility] Comment on above: Result Comment: Nega tive for Flu A protein angiten. Infection due to Flu A cannot be ruled out. Flu A angiten in the sample may be below the detection limit of the test. Performed By: #### O BSCRN #### [facility] [address] [place] [address] Dr. Igor [facility] BEL[facility] Normal [facility] Comment on above: Result Comment: Nega tive for Flu B protein antigen. Infection due to Flu B cannot be ruled out. Flu B antigen in the sample may be below the detection limit of the test. Performed By: #### O BSCRN #### [facility] [address] [place] [address] Dr. Igor Hayes INFLUENZA A AG Negative Normal NEGATIVE SEE COMMENT [facility] Comment on above: Performed By: #### O BSCRN #### [facility] [address] [place] [address] Dr. Igor Hayes INFLUENZA B AG Negative Normal NEGATIVE SEE COMMENT [facility] Comment on above: Performed By: #### O BSCRN #### [facility] [address] [place], [place] [address] Dr. Igor Hayes INTERNAL CONTROLS Within Normal Limits Normal Wi thin Normal Limits [facility] Comment on above: Performed By: #### O BSCRN #### [facility] [address] [place] [id number] Igor Hayes Office Visit (Cardiology)on 02-13-2022 [...] Weight Tips; Status:Complete - Retrospective Authorization; Done: [id number] Hyperlipidemia Renew: Simvastatin 20 MG Oral Tablet; TAKE 1 TABLET DAILY SocHx: Former smoker Tobacco Use Screening; Status:Complete; Done: [id number] Unspecified atrial flutter Start: Amiodarone HCl - 200 MG Oral Tablet; Take 1 tablet twice daily IO EKG Electrocardiogram- 12 Lead; Status:Complete; Done: [id number] Unlinked Stop: Digoxin 125 MCG Oral Tablet [...] Systems Constitutio (more content not included)... Normal [facility] Tobacco Screening.on 022 Adult depression screening assessment No [facility] 250 DO Work Phone: Fall risk assessment a) No falls within the last year [facility] 250 DO Work Phone: Tobacco use status CPH[facility] b) No [facility] 250 DO Work Phone: Glucose Glucometer (BldC) [M ass/Vol]Ordered By: Jin Berkowitz on 01-23-2022 Glucose [Mass/Vol] 155 mg/dL [facility] Comment on above: Random Glucose Refer ence Range is dependent on time and content of last meal. Glucose of more than 200 mg/dL in a nonstressed, ambulatory subject supports the diagnosis of Diabetes Mellitus. Activated partial thrombopla stin time (aPTT) in platelet poor plasma by coagulation aOrdered By: Ama Morrison on 01-22-2022 aPTT Coag (PPP) [Time] 71.1 s 25.1-36.5 [facility] Creatinine and Glomerular fi ltration rate.predicted panel (S/P/Bld)Ordered By: Ama Morrison on 01-22-2022 Creatinine [Mass/Vol] 1.04 mg/dL 0.64-1.27 [facility] Estimated glomerular filtrat ion rate (GFR) non- AmericanOrdered By: Ama Morrison on 01-22-2022 GFR/1.73 sq M.predicted among non-blacks MDRD (S/P/Bld) [Vol rate/Area] > 60 mL/Min [facility] No Panel InformationOrdered By: Jin Berkowitz on 01-22-2022 Bedside Glucose Comment Glu2: cleaned meter [facility] No Panel InformationOrdered By: Ama Morrison on 01-22-2022 Estimated GFR () > 60 mL/Min [facility] Comment on above: GFR estimated refere nce range: According to KDOQI guidelines, <60 ml/min/1.73m2 is sufficient to diagnose a patient with chronic kidney disease. Pharmacy Creatinine Clearance (Chem 82.75 [facility] Serum or plasma calcium tiera urement (mass/volume)Ordered By: Ama Morrison on 01-22-2022 Calcium [Mass/Vol] 9.4 mg/dL 8.2-10.2 [facility] Serum or plasma chloride marly surement (moles/volume)Ordered By: Ama Morrison on 01-22-2022 Chloride [Moles/Vol] 99 mmol/L 95-114 [facility] Serum or plasma glucose tiera urement (mass/volume)Ordered By: Ama Morrison on 01-22-2022 Glucose [Mass/Vol] 117 mg/dL 70-100 [facility] Comment on above: ADA recommended refe rence [...] 01-22-2022 Potassium [Moles/Vol] 4.6 mmol/L 3.5-5.1 [facility] Serum or plasma sodium measu rement (moles/volume)Ordered By: Ama Morrison on 01-22-2022 Sodium [Moles/Vol] 139 mmol/L 136-146 [facility] Serum or plasma total carbon dioxide measurement (moles/volume)Ordered By: Ama Morrison on 01-22-2022 CO2 [Moles/Vol] 29.5 mmol/L 22.0-30.0 [facility] Serum or plasma urea nitroge n measurement (mass/volume)Ordered By: Ama Morrison on 01-22-2022 Urea nitrogen [Mass/Vol] 17 mg/dL 9-23 [facility] Basophils Auto (Bld) [#/Vol] Ordered By: Pola Anders on 01-21-2022 Basophils (Bld) [#/Vol] 0.1 10*3/uL 0.0-0.2 [facility] Basophils/100 WBC Auto (Bld) Ordered By: Pola Anders on 01-21-2022 Basophils/100 WBC (Bld) 1.2 % [facility] Blood hemoglobin measurement (mass/volume)Ordered By: Pola Anders on 01-21-2022 Hemoglobin (Bld) [Mass/Vol] 15.9 g/dL 13.0-17.0 [facility] Blood leukocytes automated c ount (number/volume)Ordered By: Pola Anders on 01-21-2022 WBC (Bld) [#/Vol] 4.9 10*3/uL 4.5-11.0 [facility] Eosinophils Auto (Bld) [#/Vo l]Ordered By: Pola Anders on 01-21-2022 Eosinophils (Bld) [#/Vol] 0.2 10*3/uL 0.0-0.45 [facility] Eosinophils/100 WBC Auto (Bl d)Ordered By: Pola Anders on 01-21-2022 Eosinophils/100 WBC (Bld) 3.1 % [facility] Erythrocyte distribution wid th Auto (RBC) [Ratio]Ordered By: Pola Anders on 01-21-2022 Erythrocyte distribution width (RBC) [Ratio] 13.4 % 12.0-14.8 [facility] Hematocrit Auto (Bld) [Volum e fraction]Ordered By: Pola Anders on 01-21-2022 Hematocrit (Bld) [Volume fraction] 46.7 % 38.8-50.0 [facility] Laboratory - Hematology and Cell countsOrdered By: Pola Martita on 01-21-2022 Nucleated RBC/100 WBC (Bld) [Ratio] 0.2 % 0-0.5 [facility] Lymphocytes Auto (Bld) [#/Vo l]Ordered By: Pola Martita on 01-21-2022 Lymphocytes (Bld) [#/Vol] 1.3 10*3/uL 1.00-4.8 [facility] Lymphocytes/100 WBC Auto (Bl d)Ordered By: Pola Martita on 01-21-2022 Lymphocytes/100 WBC (Bld) 26.4 % [facility] MCH Auto (RBC) [Entitic mass ]Ordered By: Pola Martita on 01-21-2022 MCH (RBC) [Entitic mass] 30.8 pg 27.5-35.2 [facility] MCHC Auto (RBC) [Mass/Vol]Or dered By: Pola Martita on 01-21-2022 MCHC (RBC) [Mass/Vol] 34.2 g/dL 32.5-35.6 [facility] MCV Auto (RBC) [Entitic vol] Ordered By: Pola Martita on 01-21-2022 MCV (RBC) [Entitic vol] 90.2 fL 83.5-101 [facility] Monocytes Auto (Bld) [#/Vol] Ordered By: Pola Martita on 01-21-2022 Monocytes (Bld) [#/Vol] 0.6 10*3/uL 0.0-0.8 [facility] Monocytes/100 WBC Auto (Bld) Ordered By: Pola Martita on 01-21-2022 Monocytes/100 WBC (Bld) 13.0 % [facility] Neutrophils Auto (Bld) [#/Vo l]Ordered By: Pola Martita on 01-21-2022 Neutrophils (Bld) [#/Vol] 2.8 10*3/uL 1.8-7.7 [facility] Neutrophils/100 WBC Auto (Bl d)Ordered By: Pola Martita on 01-21-2022 Neutrophils/100 WBC (Bld) 56.3 % [facility] Platelet mean volume Auto (B ld) [Entitic vol]Ordered By: Pola Anders on 01-21-2022 Platelet mean volume (Bld) [Entitic vol] 9.2 fL 6.6-10.1 [facility] Platelets Auto (Bld) [#/Vol] Ordered By: Pola Anders on 01-21-2022 Platelets (Bld) [#/Vol] 176 10*3/uL 150-450 [facility] RBC Auto (Bld) [#/Vol]Ordere d By: Pola Anders on 01-21-2022 RBC (Bld) [#/Vol] 5.18 10*6/uL 3.90-5.60 [facility] Cholesterol [Mass/volume] in Serum or PlasmaOrdered By: Pola Anders on 01-20-2022 Cholesterol [Mass/Vol] 155 mg/dL 140-200 [facility] Comment on above: Chol less than 200 m g/dl low riskChol 201-239 mg/dl borderline riskChol 240 mg/dl and greater high risk Chol less than 200 m g/dl low risk Chol 201-239 mg/dl borderline risk Chol 240 mg/dl and greater high risk Cholesterol in LDL Calc [Mas s/Vol]Ordered By: Pola Anders on 01-20-2022 Cholesterol in LDL [Mass/Vol] 82 mg/dL 0-100 [facility] Comment on above: LDL ATP III [...] Cholesterol in VLDL [Mass/Vol] 31 mg/dL [facility] Glucose mean value [Mass/vol ume] in Blood Estimated from glycated hemoglobinOrdered By: Pola Anders on 01-20-2022 Average glucose Estimated from glycated hemoglobin (Bld) [Mass/Vol] 140 mg/dL [facility] Hemoglobin A1c percentageOrd ered By: Pola Anders on 01-20-2022 HbA1c (Bld) [Mass fraction] 6.5 % 4.3-5.6 [facility] Comment on above: Increased risk for d iabetes: 5.7 - 6.4diabetes: >6.4glycemic control for adults with diabetes: <7.0 Increased risk for d iabetes: 5.7 - 6.4 diabetes: >6.4 glycemic control for adults with diabetes: <7.0 Laboratory - CoagulationOrde red By: Pola Anders on 01-20-2022 PT Coag (PPP) [Time] 15.6 s 9.0-12.9 [facility] Platelet poor plasma interna tional normalized ratio (INR) by coagulation assay (relatOrdered By: Pola Anders on 01-20-2022 INR Coag (PPP) [Relative time] 1.4 {INR} [facility] Comment on above: INR Therapeutic Rang [...] in HDL [Mass/Vol] 41 mg/dL 29-71 [facility] Comment on above: HDL CHOL ATP-III [...] in HDL [Mass ratio] 3.8 {ratio} [facility] Triglyceride [Mass/volume] i n Serum or PlasmaOrdered By: Pola Anders on 01-20-2022 Triglyceride [Mass/Vol] 158 mg/dL 35-149 [facility] Comment on above: TRIG ATP III [...] sensitivity method [Mass/Vol] 7 pg/mL 0-20 [facility] Vital Signs Date Time Vital Sign Value Performing Clinician Facility 02-04-2025 [id number] Body height 182.9 cm Joe EVERETTM Work Phone: [facility] 02-04-2025 10:08-040 Body mass index (BMI) [Ratio] 31.19 kg/m2 Joe García DPM Work Phone: [facility] 02-04-2025 10:08-040 Body weight 104.33 kg Joe García DPM Work Phone: [facility] 02-04-2025 10:08-0400 Respiratory rate 16 /min Joe García DPM Work Phone: [facility] 01-06-2025 13:22-0500 Body height 182.9 cm Marcus Recinos MD Work Phone: [facility] 01-06-2025 13:22-0500 Body mass index (BMI) [Ratio] 30.38 kg/m2 Marcus Recinos MD Work Phone: [facility] 01-06-2025 13:22-0500 Body weight 101.61 kg Marcus Recinos MD Work Phone: [facility] 01-06-2025 13:22-0500 Diastolic blood pressure 60 mm[Hg] Marcus Recinos MD Work Phone: [facility] 01-06-2025 13:22-0500 Heart rate 55 /min Marcus Recinos MD Work Phone: [facility] 01-06-2025 13:22-0500 Systolic blood pressure 120 mm[Hg] Marcus Recinos MD Work Phone: [facility] 11-26-2024 10:35-0500 Body height 182.9 cm Joe García DPM Work Phone: [facility] 11-26-2024 10:35-0500 Body mass index (BMI) [Ratio] 31.19 kg/m2 Joe García DPM Work Phone: [facility] 11-26-2024 10:35-0500 Body weight 104.33 kg Joe García DPM Work Phone: [facility] 11-26-2024 10:35-0500 Respiratory rate 18 /min Joe García DPM Work Phone: [facility] 12-04-2023 09:03-0500 Body height 182.9 cm Marcus Recinos MD Work Phone: [facility] 12-04-2023 09:03-0500 Body mass index (BMI) [Ratio] 31.46 kg/m2 Marcus Recinos MD Work Phone: [facility] 12-04-2023 09:03-0500 Body weight 105.23 kg Marcus Recinos MD Work Phone: [facility] 12-04-2023 09:03-0500 Diastolic blood pressure 72 mm[Hg] Marcus Recinos MD Work Phone: [facility] 12-04-2023 09:03-0500 Heart rate 61 /min Marcus Recinos MD Work Phone: [facility] 12-04-2023 09:03-0500 Systolic blood pressure 118 mm[Hg] Marcus Recinos MD Work Phone: [facility] 02-08-2023 10:42-0400 Body height 182.88 cm Tirso M Hoy Work Phone: [facility] DO Work Phone: 02-08-2023 10:42-0400 Body mass index (BMI) [Ratio] 30.65 kg/m2 Tirso M Hoy Work Phone: [facility] DO Work Phone: 02-08-2023 10:42-0400 Body surface area Derived from formula 2.24 m2 Tirso M Hoy Work Phone: [facility] DO Work Phone: 02-08-2023 10:42-0400 Body weight 102.51 kg Tirso M Hoy Work Phone: [facility] DO Work Phone: 02-08-2023 10:42-0400 Diastolic blood pressure 83 mm[Hg] Tirso M Hoy Work Phone: [facility] DO Work Phone: 02-08-2023 10:42-0400 Heart rate 54 /min Tirso M Hoy Work Phone: [facility] DO Work Phone: 02-08-2023 10:42-0400 Systolic blood pressure 128 mm[Hg] Tirso M Hoy Work Phone: [facility] DO Work Phone: 11-08-2022 11:01-0500 Body height 182.88 cm Tirso M Hoy Work Phone: [facility] DO Work Phone: 11-08-2022 11:01-0500 Body mass index (BMI) [Ratio] 30.92 kg/m2 Tirso M Hoy Work Phone: [facility] DO Work Phone: 11-08-2022 11:01-0500 Body surface area Derived from formula 2.25 m2 Tirso M Hoy Work Phone: [facility] DO Work Phone: 11-08-2022 11:01-0500 Body weight 103.42 kg Tirso M Hoy Work Phone: [facility] DO Work Phone: 11-08-2022 11:01-0500 Diastolic blood pressure 72 mm[Hg] Tirso M Hoy Work Phone: [facility] DO Work Phone: 11-08-2022 11:01-0500 Heart rate 49 /min Tirso M Hoy Work Phone: [facility] DO Work Phone: 11-08-2022 11:01-0500 Systolic blood pressure 110 mm[Hg] Tirso M Hoy Work Phone: [facility] DO Work Phone: 04-24-2022 14:21-0400 Body height 182.88 cm Tirso M Hoy Work Phone: [facility] DO Work Phone: 04-24-2022 14:21-0400 Body mass index (BMI) [Ratio] 30.38 kg/m2 Tirso Rivera Hoy Work Phone: [facility] DO Work Phone: 04-24-2022 14:21-0400 Body surface area Derived from formula 2.24 m2 Tirso Rivera Hoy Work Phone: [facility] DO Work Phone: 04-24-2022 14:21-0400 Body weight 101.61 kg Tirso Rivera Hoy Work Phone: [facility] DO Work Phone: 04-24-2022 14:21-0400 Diastolic blood pressure 80 mm[Hg] Tirso Rivera Hoy Work Phone: [facility] DO Work Phone: 04-24-2022 14:21-0400 Heart rate 51 /min Tirso Rivera Hoy Work Phone: [facility] DO Work Phone: 04-24-2022 14:21-0400 Systolic blood pressure 118 mm[Hg] Tirso Rivera Hoy Work Phone: [facility] DO Work Phone: 04-17-2022 12:00-0400 Body temperature 97.34 [degF] Sarath Hines [facility] 04-17-2022 12:00-0400 Diastolic blood pressure 68 mm[Hg] Sarath Hines [facility] 04-17-2022 12:00-0400 Heart rate 50 /min Sarath Hines [facility] 04-17-2022 12:00-0400 SaO2% (BldA) [Mass fraction] 96 % Sarath Crumkarener [facility] 04-17-2022 12:00-0400 Systolic blood pressure 100 mm[Hg] Sarath Crumhler [facility] 04-17-2022 11:36-0400 Blood Pressure Location Sarath Crumkarener [facility] 04-17-2022 11:36-0400 BP/Pulse Patient Position Sarath Zakarener [facility] 04-17-2022 11:36-0400 Diastolic blood pressure 75 mm[Hg] Sarath Zahler [facility] 04-17-2022 11:36-0400 Heart rate 47 /min Sarath Crumhler [facility] 04-17-2022 11:36-0400 Respiratory rate 18 /min Sarath Crumhler [facility] 04-17-2022 11:36-0400 SaO2% (BldA) [Mass fraction] 94 % Sarath Zahler [facility] 04-17-2022 11:36-0400 Systolic blood pressure 109 mm[Hg] Sarath Zahler [facility] 04-17-2022 11:20-0400 Blood Pressure Location Sarath Crumkarener [facility] 04-17-2022 11:20-0400 BP/Pulse Patient Position Sarath Zahler [facility] 04-17-2022 11:20-0400 Diastolic blood pressure 82 mm[Hg] Sarathjose e Crumhler [facility] 04-17-2022 11:20-0400 Heart rate 47 /min Sarath Crumkarentad [facility] 04-17-2022 11:20-0400 Respiratory rate 18 /min Sarath Crumkarentad [facility] 04-17-2022 11:20-0400 SaO2% (BldA) [Mass fraction] 94 % Sarath Crumkarentad [facility] 04-17-2022 11:20-0400 Systolic blood pressure 110 mm[Hg] Sarath Zakarentad [facility] 04-17-2022 09:32-0400 Blood Pressure Location Sarath Flora [facility] 04-17-2022 09:32-0400 BP/Pulse Patient Position Sarath Crumjill [facility] 04-17-2022 09:32-0400 Mean blood pressure 76 mm[Hg] Sarath Flora [facility] 04-17-2022 09:31-0400 Body temperature 98.6 [degF] Sarath Crumjill [facility] 04-17-2022 09:31-0400 Mean blood pressure 79 mm[Hg] Sarath Flora [facility] 04-17-2022 09:31-0400 Respiratory rate 20 /min Sarath Flora [facility] 03-27-2022 09:00-0400 Inhaled oxygen flow rate 2 L/min MD Tirso Frausto Work Phone: [facility] 02-27-2022 12:16-0400 Body height 182.88 cm Tirso M Hoy Work Phone: [facility] DO Work Phone: 02-27-2022 12:16-0400 Body mass index (BMI) [Ratio] 30.65 kg/m2 Tirso Miguel Hoy Work Phone: [facility] DO Work Phone: 02-27-2022 12:16-0400 Body surface area Derived from formula 2.24 m2 Tirso Miguel Hoy Work Phone: [facility] DO Work Phone: 02-27-2022 12:16-0400 Body weight 102.51 kg Tirso Miguel Hoy Work Phone: [facility] DO Work Phone: 02-27-2022 12:16-0400 Diastolic blood pressure 80 mm[Hg] Tirso Miguel Hoy Work Phone: [facility] DO Work Phone: 02-27-2022 12:16-0400 Heart rate 79 /min Tirso Miguel Hoy Work Phone: [facility] DO Work Phone: 02-27-2022 12:16-0400 Systolic blood pressure 110 mm[Hg] Tirso Miguel Hoy Work Phone: [facility] DO Work Phone: 02-13-2022 13:01-0400 Body height 182.88 cm Tirso Miguel Hoy Work Phone: [facility] DO Work Phone: 02-13-2022 13:01-0400 Body mass index (BMI) [Ratio] 30.11 kg/m2 Tirso Miguel Hoy Work Phone: [facility] DO Work Phone: 02-13-2022 13:01-0400 Body surface area Derived from formula 2.23 m2 Tirso Rivera Hoy Work Phone: [facility] DO Work Phone: 02-13-2022 13:01-0400 Body weight 100.7 kg Tirso Rivera Hoy Work Phone: [facility] DO Work Phone: 02-13-2022 13:01-0400 Diastolic blood pressure 72 mm[Hg] Tirso Rivera Hoy Work Phone: [facility] DO Work Phone: 02-13-2022 13:01-0400 Heart rate 104 /min Tirso Rivera Hoy Work Phone: [facility] DO Work Phone: 02-13-2022 13:01-0400 Systolic blood pressure 104 mm[Hg] Tirso Gamezy Work Phone: [facility] DO Work Phone: 01-23-2022 08:00-0400 Body temperature 97.8 [degF] MD Tirso Frausto Work Phone: [facility] 01-23-2022 08:00-0400 Diastolic blood pressure 64 mm[Hg] MD Tirso Frausto Work Phone: [facility] 01-23-2022 08:00-0400 Heart rate 73 /min MD Tirso Frausto Work Phone: [facility] 01-23-2022 08:00-0400 Respiratory rate 18 /min MD Tirso Frausto Work Phone: [facility] 01-23-2022 08:00-0400 SaO2% (BldA) [Mass fraction] 93 % MD Tirso Frausto Work Phone: [facility] 01-23-2022 08:00-0400 Systolic blood pressure 100 mm[Hg] MD Tirso Frausto Work Phone: [facility] 01-23-2022 05:57-0400 Body weight 93.1 kg MD Tirso Frausto Work Phone: [facility] 01-22-2022 08:40-0400 Inhaled oxygen flow rate 2 L/min MD Tirso Frausto Work Phone: [facility] 01-20-2022 16:12-0400 55 1 Tirso Frausto Work Phone: [facility] DO Work Phone: Comment on above: [id number] 01-20-2022 02:09-0400 Body height 182.88 cm MD Tirso Frausto Work Phone: [facility] 01-20-2022 02:09-0400 Body mass index (BMI) [Ratio] 29.9 kg/m2 MD Tirso Frausto Work Phone: [facility] Encounters Encounter Date Encounter Type Care Provider Facility Start: 02-04-2025 End: 02-04-2025 Bamboo flowsheet Joe García DPM Work Phone: [facility] Start: 02-04-2025 End: 02-04-2025 Bamboo flowsheet Joe García DPM Work Phone: [facility] Start: 02-04-2025 End: 02-04-2025 Patient encounter procedure Joe García DPM Work Phone: [facility] Comment on above: Diabetes mellitus du e to underlying condition with diabetic polyneuropathy, unspecified whether buttermaker insulin use ([facility]) (Primary Dx); Pain due to onychomycosis of toenails of both feet Start: 02-04-2025 End: 02-04-2025 ambulatory JOE GARCÍA Not Available Start: 01-06-2025 End: 01-06-2025 Office outpatient visit 25 minutes Marcus Recinos MD Work Phone: [facility] Comment on above: Atypical atrial flut ter (Multi) (Primary Dx); Essential hypertension; High risk medication use; Mixed hyperlipidemia; Chronic obstructive pulmonary disease, unspecified COPD type (Multi); BMI 30.0-30.9,adult; Former smoker; Obesity, Class I, BMI 30-34.9; Hypothyroidism, unspecified type Start: 01-06-2025 End: 01-06-2025 ambulatory [facility] Start: 11-26-2024 End: 11-26-2024 Bamboo flowsheet Joe García DPM Work Phone: [facility] Start: 11-26-2024 End: 11-26-2024 Bamboo flowsheet Joe García DPM Work Phone: [facility] Start: 11-26-2024 End: 11-26-2024 Office outpatient new 30 minutes Joe García DPM Work Phone: [facility] Comment on above: Contusion of right f oot, initial encounter (Primary Dx); Pain due to onychomycosis of toenails of both feet; Diabetes mellitus due to underlying condition with diabetic polyneuropathy, unspecified whether care home insulin use (CMS/HCC) Start: 11-26-2024 End: 11-26-2024 ambulatory JOE GARCÍA Not Available Start: 06-03-2024 End: 06-03-2024 ambulatory [facility] Start: 12-04-2023 End: 12-04-2023 Office outpatient visit 25 minutes Marcus Recinos MD Work Phone: [facility] Comment on above: Atrial flutter, unsp ecified type (CMS/HCC) (Primary Dx); Benign essential hypertension; High risk medication use; Hyperlipidemia, unspecified hyperlipidemia type; Pulmonary emphysema, unspecified emphysema type (CMS/HCC); 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 Facility:[facility]1 Start: 02-08-2023 Patient encounter procedure Tirso Frausto Work Phone: [facility] DO Work Phone: Start: 02-08-[address] Darwin Perdomo Facility: Start: 02-05-2023 AUDIT Tirso Frausto Work Phone: [facility] DO Work Phone: Start: 02-01-2023 End: 02-01-2023 ambulatory NOELLE VALERA Facility:[facility] Start: 01-22-2023 End: 01-22-2023 ambulatory Jina Rios Other [facility] Other Start: 01-22-2023 Telephone encounter Jina Rios [facility] Start: 01-21-2023 Telephone encounter Tirso Frausto Work Phone: [facility] DO Work Phone: Start: 01-10-2023 End: 01-11-[address] MARCUS RECINOS Facility: Start: 01-01-2023 ([facility] R A/c) [facility] Re peat A/C Olga Phipps [facility] Start: 01-01-2023 Telephone encounter Jina bonilla [facility] Start: 01-01-2023 End: 01-02-2023 ambulatory Marcus Recinos [facility] Other Start: 12-20-2022 Patient encounter procedure Tirso Frausto Work Phone: [facility] DO Work Phone: Start: 12-10-2022 ([facility] R A/c) [facility] Re peat A/C Victoria Mujica [facility] Start: 12-10-2022 End: 12-10-2022 ambulatory Victoria Mujica Other [facility] Other Start: 11-26-2022 ([facility] R A/c) [facility] Re peat A/C Victoria Mujica [facility] Start: 11-26-2022 End: 11-26-2022 ambulatory Victoria Mujica Other [facility] Other Start: 11-15-2022 ([facility] R A/c) [facility] Re peat A/C Carlos A Salazar [facility] Start: 11-15-2022 End: 11-15-2022 ambulatory Carlos A Salazar Other [facility] Other Start: 11-14-2022 End: 11-15-[address] MARCUS RECINOS Facility:[facility]1 Start: 11-08-2022 Office outpatient vi sit 25 minutes Tirso Frausto Work Phone: [facility] DO Work Phone: Start: 11-08-2022 ambulatory Marcus Recinos Facility : Start: 11-02-2022 End: 11-03-[address] TIRSO FARUSTO . Facility:[facility] Start: 11-01-2022 End: 11-01-2022 ambulatory Jina Rios Other [facility] Other Start: 11-01-2022 Telephone encounter Jina Rios [facility] Start: 10-23-2022 End: 10-24-[address] MARCUS RECINOS Facility:[facility] Start: 10-22-2022 End: 10-23-[address] LACEY LISTED REQUEST Facility:[facility]1 Start: 10-15-2022 Telephone encounter Tirso Frausto Work Phone: [facility] 250 DO Work Phone: Start: 10-10-2022 Patient encounter procedure Tirso Frausto Work Phone: [facility] DO Work Phone: Start: 10-09-2022 End: 10-10-[address] TIRSO FRAUSTO . Facility: Start: 08-10-2022 Chart Update Tirso Frausto Work Phone: [facility] DO Work Phone: Start: 07-30-2022 End: 07-30-2022 ambulatory Velazquez Recinos Facility:[facility] Start: 07-06-2022 Patient encounter procedure Tirso Frausto Work Phone: [facility] DO Work Phone: Start: 05-15-2022 Rx Renewal Tirso Rivera Francosalome Work Phone: [facility] DO Work Phone: Start: 04-26-2022 Chart Update Tirso Frausto Work Phone: [facility] DO Work Phone: Start: 04-26-2022 End: 04-26-2022 ambulatory Velazquez [facility] Facility:[facility] Start: 04-26-2022 End: 04-26-2022 Patient encounter procedure MD Tirso Frausto Work Phone: [facility] Start: 04-24-2022 Office outpatient vi sit 25 minutes Tirsoloreta Frausto Work Phone: [facility] 250 DO Work Phone: Start: 04-24-2022 ambulatory [facility] Facility : Start: 04-19-2022 Rx Renewal Tirsoloreta Frausto Work Phone: [facility] 600 DO Work Phone: Start: 04-17-2022 End: 04-17-2022 Admission to same day surgery center Sarath Hines [facility] Start: 03-28-2022 Chart Update Tirso Miguel Lisbet Work Phone: [facility] 250 DO Work Phone: Start: 03-27-[address] Tirso Frausto Facility:90 Start: 03-27-2022 SURGNON, Provider: Marcus Recinos, Status: Pen, Time: 9:00 AM Tirso Frausto Work Phone: [facility] 250 DO Work Phone: Start: 03-27-2022 End: 03-27-2022 Admission to same day surgery center MD Tirso Frausto Work Phone: [facility]-Electrodiagnostics Start: 03-26-2022 Chart Update Tirso Frausto Work Phone: [facility] 250 DO Work Phone: Start: 03-23-2022 End: 03-23-2022 Patient encounter procedure MD Tirso Frausto Work Phone: [facility] Start: 03-15-2022 End: 03-15-[address] TIRSO FRAUSTO . Facility:[facility]1 Start: 03-08-2022 Patient encounter procedure Tirso M Francosalome Work Phone: [facility] 250 DO Work Phone: Start: 03-01-2022 Telephone encounter Tirso Miguel Francosalome Work Phone: [facility] DO Work Phone: Start: 02-27-2022 ambulatory Marcus Recinos Facility : Start: 02-27-2022 Patient encounter procedure Tirso Miguel Lisbet Work Phone: [facility] DO Work Phone: Start: 02-13-2022 Office outpatient vi sit 25 minutes Tirso Frausto Work Phone: [facility] DO Work Phone: Start: 02-13-2022 ambulatory Marcus Recinos Facility : Start: 01-25-2022 End: 01-25-2022 Patient encounter procedure MD Tirso Frausto Work Phone: [facility]-CT [address] Start: 01-20-2022 End: 01-23-2022 Evaluation and management of inpatient MD Tirso Frausto Work Phone: [facility] [place] [facility] Procedures Date Procedure Procedure Detail Performing Clinician Start: 01-06-2025 Ecg routine ecg w/le ast 12 lds w/i&r Marcus Recinos MD Work Phone: Start: 12-04-2023 Ecg routine ecg w/le ast 12 lds w/i&r Marcus Recinos MD Work Phone: Start: 10-09-[address] ABHIJIT WONG REQUEST Comment on above: Performed By: #### O BSCRN #### [facility] [address] [place] [address] Dr. Igor Hayes Start: 04-26-2022 Plain chest [...] Phone: Appendectomy Sarath Hines Cardiac catheterization Jim Frausto Work Phone: Cardioversion Tirso Frausto Work Phone: Cataract surgery Tirso Tuttle osalome Work Phone: Hernia repair Tirso Frausto Work Phone: Primary repair of um bilical hernia Sarath Hines Repair of ventral hernia Pablito sunil Hines Plan of Treatment Date Care Activity Detail Author Start: 04-12-2031 Screening for malignant neoplasm of colon [facility] Start: 12-09-2025 End: 01-06-2026 Complete Pulmonary Function Test (Spirometry/DLCO/Lung Volumes) Complete Pulmonary Function Test (Spirometry/DLCO/Lung Volumes) PFT Routine Atypical atrial flutter (Multi) High risk medication use Expected: 12/09/2025 (Approximate), Expires: 01/06/2026 [facility] Work Phone: Comment on above: Expected: 12/09/2025 (Approximate), Expi res: 01/06/2026 Start: 12-09-2025 End: 01-06-2026 XR Chest 2 Views XR chest 2 views Imaging Routine Atypical atrial flutter (Multi) High risk medication use Expected: 12/09/2025 (Approximate), Expires: 01/06/2026 [facility] Work Phone: Comment on above: Expected: 12/09/2025 (Approximate), Expi res: 01/06/2026 Start: 08-25-2025 End: 08-25-2025 Patient encounter procedure 08/25/2025 11:10 AM EDT Office Visit [facility] [address] [facility] [address] [place] [address] Marcus [facility]inos [facility] [facility] [place] [address] [facility] Start: 07-09-2025 End: 01-06-2026 Aspartate aminotransferase [Enzymatic activity/volume] in Serum or Plasma by With P-5'-P Aspartate Aminotransferase Lab Routine Atypical atrial flutter (Multi) High risk medication use Expected: 07/09/2025 (Approximate), Expires: 01/06/2026 [facility] Service Area Work Phone: Comment on above: Expected: 07/09/2025 (Approximate), Expi res: 01/06/2026 Start: 07-09-2025 End: 01-06-2026 Basic metabolic 2000 panel - Serum or Plasma Basic Metabolic Panel Lab Routine Atypical atrial flutter (Multi) High risk medication use Expected: 07/09/2025 (Approximate), Expires: 01/06/2026 [facility] Work Phone: Comment on above: Expected: 07/09/2025 (Approximate), Expi res: 01/06/2026 Start: 07-09-2025 End: 01-06-2026 Thyrotropin [Units/volume] in Serum or Plasma Thyroid Stimulating Hormone Lab Routine Atypical atrial flutter (Multi) High risk medication use Expected: 07/09/2025 (Approximate), Expires: 01/06/2026 [facility] Work Phone: Comment on above: Expected: 07/09/2025 (Approximate), Expi res: 01/06/2026 Start: 03-18-2025 End: 03-18-2025 Patient encounter procedure 03/18/2025 8:45 AM EDT Appointment [facility] [address] [facility] [address] [place] [address] [facility] Start: 02-04-2025 End: 02-04-2025 Patient encounter procedure [facility] Comment on above: Diabetes mellitus due to underlying cond ition with diabetic polyneuropathy, unspecified whether buttermaker insulin use ([facility]/HCC) (Primary Dx); Pain due to onychomycosis of toenails of both feet Start: 01-20-2025 Medicare Annual Wellness Visit Medicare Annual Wellness Visit (AWV) [facility] Start: 01-06-2025 End: 01-06-2027 US Abdominal Aorta for screening Vascular US Abdominal Aorta Aneurysm AAA Screening Vascular Ultrasound Routine Essential hypertension Atypical atrial flutter (Multi) Mixed hyperlipidemia Former smoker Expected: 01/06/2025 (Approximate), Expires: 01/06/2027 [facility] Work Phone: Comment on above: Expected: 01/06/2025 (Approximate), Expi res: 01/06/2027 Start: 11-26-2024 End: 11-26-2024 Patient encounter procedure 11/26/2024 10:30 AM EST Office Visit [facility] [address] [facility] [address] [place] [address] Joe García DPM [address] [facility] [address] [place] [address] Arrived [facility] Comment on above: Arrived Start: 07-05-2024 COVID-19 Vaccine ( season) COVID-19 Vaccine ( season) [facility] Start: 07-05-2024 Influenza vaccination Influenza Vaccine (#1) [facility] Start: 06-03-2024 End: 06-03-2024 Patient encounter procedure 06/03/2024 10:00 AM EDT Office Visit [facility] [address] [facility] [address] [place] [address] Marcus Recinos MD [address] [facility] [address] [place] [address] [facility] Start: 07-05-2023 Influenza vaccination Influenza Vaccine (#1) [facility] Start: 05-29-2023 FUV, Provider: Marcus Recinos, Status: Pen, Time: 9:30 AM FUV, Provider: Marcus Recinos, Status: Pen, Time: 9:30 AM [facility] [facility] 250 DO Work Phone: Start: 05-14-2023 FUV, Provider: Darwin Perdomo, Status: Pen, Time: 9:30 AM FUV, Provider: Darwin Perdomo, Status: Pen, Time: 9:30 AM -[facility] 250 DO Work Phone: Start: 11-08-2022 FUV, Provider: Marcus Recinos, Status: Pen, Time: 10:40 AM FUV, Provider: Marcus Recinos, Status: Pen, Time: 10:40 AM -[facility] 250 DO Work Phone: Start: 04-24-2022 FUV, Provider: Marcus Recinos, Status: Pen, Time: 2:10 PM FUV, Provider: Marcus Recinos, Status: Pen, Time: 2:10 PM -[facility] 250 DO Work Phone: Start: 03-27-2022 SURGNONUH, Provider: Marcus Recinos, Status: Pen, Time: 9:00 AM SURGNONUH, Provider: Marcus Recinos, Status: Pen, Time: 9:00 AM -[facility] 250 DO Work Phone: Start: 02-27-2022 EKG, Provider: [employer] ERP 1,[id number], Status: Pen, Time: 10:00 AM EKG, Provider: CLEVELAND MADRIGAL MANAGER ERP 1,[id number], Status: Pen, Time: 10:00 AM [facility] 250 DO Work Phone: Start: 2019 Abdominal aortic aneurysm screening Abdominal Aortic Aneurysm (AAA) Screening [facility] Start: 2014 RSV High Risk: (Elderly (60+) or Population) (1 - Risk 60-74 years 1-dose series) RSV High Risk: (Elderly (60+) or Population) (1 - Risk 60-74 years 1-dose series) [facility] Start: 2004 Zoster Vaccines (1 of 2) Zoster Vaccines (1 of 2) [facility] Start: 1976 DTaP/Tdap/Td Vaccines (1 - Tdap) DTaP/Tdap/Td Vaccines (1 - Tdap) [facility] Start: 1973 Pneumococcal vaccination Pneumococcal Vaccine (1 of 2 - PCV) [facility] Start: 1972 Diabetes mellitus screening Diabetes Screening [facility] Start: 1972 Hepatitis C screening Hepatitis C Screening [facility] Start: 1960 Pneumococcal Vaccine: 65+ Years (1 - PCV) Pneumococcal Vaccine: 65+ Years (1 - PCV) [facility] Start: 04-30-1955 COVID-19 Vaccine (#1) COVID-19 Vaccine (#1) [facility] Start: 1954 Lipid panel Lipid Panel [facility] Start: 1954 Medicare Annual Wellness Visit Medicare Annual Wellness Visit (AWV) [facility] Start: 1954 Screening for malignant neoplasm of colon [facility] Start: 1954 Thyroid stimulating hormone measurement TSH Level [facility] Patient Education Cardiomyopathy (DC) Digoxin Enalapril Furosemide Metoprolol Spironolactone Atrial Flutter (DC) [facility] Work Phone: Patient referral [facility] Work Phone: Immunizations Immunization Date Immunization Notes Care Provider Fa cility NEGATED: Highlighted row has not occurred!01-05-2021 influenza virus vaccine, unspecified formulation Sarath Hines [facility] Payers Date Payer Category Payer Private Health Insurance [facility] [id number] 2022 Self-pay [id number] 2019 Medicare [id number] 2019 Medicare supplementa l policy (as second payer) [employer] [id number] 2019 Private Health Insurance [id number] 1959 Medicare [id number] 1959 Private Health Insurance [facility] [id number] 1954 Unknown [id number] 2.16.840.1.325457.3.579 .2.356 1954 Unknown [id number] 2.16.840.1.432589.3.579 .2.356 1954 Unknown [id number] 2.16.840.1.191885.3.579 .2.356 1954 Unknown [id number] 2.16.840.1.924543.3.579 .2.356 1954 Unknown [id number] 2.16.840.1.812913.3.579 .2.356 1954 Unknown [id number] 2.16.840.1.989356.3.579 .2.356 1954 Unknown [id number] 2.16.840.1.858403.3.579 .2.593 1954 Unknown [id number] 2.16.840.1.071969.3.579 .2.593 1954 Unknown [id number] 2.16.840.1.081340.3.579 .2.593 1954 Unknown [id number] 2.16.840.1.562153.3.579 .2.593 1954 Unknown [id number] 2.16.840.1.985054.3.579 .2.593 1954 Unknown [id number] 2.16.840.1.870093.3.579 .2.593 1954 Unknown [id number] 2.16.840.1.100912.3.579 .2.593 1954 Unknown [id number] 2.16.840.1.667892.3.579 .2.593 1954 Unknown [id number] 2.16.840.1.302154.3.579 .2.593 1954 Unknown [id number] 2.16.840.1.468422.3.579 .2.593 1954 Unknown [id number] 2.16.840.1.023531.3.579 .2.1244 1954 Unknown [id number] 2.16.840.1.890975.3.579 .2.1244 1954 Unknown [id number] 2.16.840.1.337605.3.579 .2.1259 1954 Unknown [id number] 2.16.840.1.141251.3.579 .2.1259 Unknown [id number] Unknown Unknown [id number] 2.16.840.1.300732.3.579 .2.531 Unknown [id number] 2.16.840.1.951141.3.579 .2.531 Unknown [id number] 2.16.840.1.664173.3.579 .2.531 Social History Date Type Detail Facility Start: 01-20-2022 End: 06-03-2024 Tobacco smoking status NHIS Ex-smoker (finding) [facility] Start: 12-04-2023 End: 11-26-2024 History of tobacco use [facility] Work Phone: Start: 1955 Sex Assigned At Male F [facility] Start: 12-04-2023 End: 11-26-2024 No illicit drug use No illicit drug use [facility] 250 DO Work Phone: Comment on above: DRINKS 6 BEERS A DAY ; 2 CUPS OF COFFEE RACIEL LY; QUIT IN 08/2021; Start: 04-20-2021 Tobacco smoking status Heavy tobacco smoker (finding) [facility] End: 11-04-2020 Tobacco smoking status Smoker (finding) [facility] Tobacco smoking status Never [facility] End: 11-04-2020 History of tobacco use Cigarette Smoker [facility] Work Phone: Start: 12-04-2023 End: 11-26-2024 Tobacco use and exposure Smokeless tobacco non-user [facility] Work Phone: Start: 12-04-2023 End: 02-04-2025 Alcohol intake Current drinker of alcohol (finding) [facility] Work Phone: Start: 1955 Sex Assigned At Not on file [facility] Work Phone: Start: 11-24-2023 End: 01-06-2025 Exposure to SARS-CoV-2 (event) Not sure [facility] Start: 11-26-2024 Tobacco smoking status NHIS Never smoked tobacco [facility] Tobacco smoking status NHIS Tobacco smoking consumption unknown [facility] Start: 06-03-2024 Alcohol Comment daily [facility] Work Phone: Medical Equipment Procedure Code Equipment Code Equipment Origin al Text Equipment Identifier Dates CATARACT EXTRACT ION W/ INTRAOCULAR LENS Sarath Hines DO 04/17/22 Non Biological Eye L [id number] Start: 04-17-2022 Goals Date Patient Goal Desired Activity /State Functional Status Date Assessment Result Facility 04-17-2022 Functional Status N/A [facility]ayan[facility] - [facility] 01-23-2022 Functional status Patient at [facility] Work Phone: Mental Status Date Assessment Result Facility 01-23-2022 Cognitive function Cognitive Sta tus Patient at [facility] Work Phone: Clinical Notes 01-20-2022 to 01-06-2025 Marcus Recinos MD - 01/06/2025 1:20 PM ESTPatient InstructionsAttachPiotr García DPM - 11/26/2024 10:30 AM Maikel Recinos MD - 12/04/2023 9:00 AM ESTPatient Instructions Note Date & Type Note Facility 01-06-2025 History of Present illness Narrative Marla Magaña is a 69 y.o. male Chief Complaint Follow-up HPI Patient is in the office for follow-up for paroxysmal atrial fibrillation. He has had no indication of breakthrough atrial fibrillation while he is on amiodarone and Eliquis. His amiodarone testing which I reviewed demonstrated no toxicity. He does have advanced COPD from previous industrial exposure and tobacco use. His PFT revealed COPD findings. Lab data were unremarkable. EKG revealed normal sinus rhythm with first-degree AV block. Heart rate is just under 60 bpm. His blood pressure is under control. He denies orthopnea PND lower extremity edema. Has had no bleeding complications. Patient qualifies to have abdominal ultrasound to assess for abdominal aortic aneurysm given his age, gender and his previous tobacco abuse. Assessment/recommendations: 1-history of atrial flutter, currently in normal sinus rhythm with sinus bradycardia on amiodarone and Eliquis, no indication of breakthrough events 2-mild CAD with no coronary interventions . He is on aspirin and statin 3-high risk medication with Eliquis and amiodarone. Both will be followed closely. 4-advanced COPD due to heavy previous tobacco abuse. Patient utilizes inhaler therapy 5-essential hypertension on medical therapy under control. 6-class I obesity, encouraged the patient to work harder on losing weight with more aggressive diet. 7-hyperlipidemia, on statin therapy 8-hypothyroidism on replacement therapy Review of Systems Respiratory: Positive for shortness of breath. All other systems reviewed and are negative. Vitals: 01/06/25 1322 BP: 120/60 BP Location: Left arm Patient Position: Sitting Pulse: 55 Weight: 102 kg (224 lb) Height: 1.829 m (6') Objective Physical Exam Constitutional: Appearance: Normal appearance. HENT: Nose: Nose normal. Neck: Vascular: No carotid bruit. Cardiovascular: Rate and Rhythm: Normal rate. Pulses: Normal pulses. Heart sounds: Normal heart sounds. Pulmonary: Effort: Pulmonary effort is normal. Comments: Diminished breath sounds Abdominal: General: Bowel sounds are normal. Palpations: Abdomen is soft. Musculoskeletal: General: Normal range of motion. Cervical back: Normal range of motion. Right lower leg: No edema. Left lower leg: No edema. Skin: General: Skin is warm and dry. Neurological: General: No focal deficit present. Mental Status: He is alert. Psychiatric: Mood and Affect: Mood normal. Behavior: Behavior normal. Thought Content: Thought content normal. Judgment: Judgment normal. Allergies Ciprofloxacin (mixture) Current Medications Current Outpatient Medications: amiodarone (Pacerone) 200 mg tablet, TAKE 1 TABLET BY MOUTH EVERY DAY, Disp: 90 tablet, Rfl: 1 apixaban (Eliquis) 5 mg tablet, Take 1 tablet (5 mg) by mouth 2 times a day., Disp: , Rfl: aspirin 81 mg EC tablet, Take 1 tablet (81 mg) by mouth 1 (one) time per week., Disp: , Rfl: ferrous sulfate 325 (65 Fe) MG EC tablet, Take 65 mg by mouth 2 times a day. Do not crush, chew, or split., Disp: , Rfl: levothyroxine (Synthroid, Levoxyl) 50 mcg tablet, Take 1 tablet (50 mcg) by mouth once daily in the morning. Take on an empty stomach at the same time each day, either 30 to 60 minutes prior to breakfast, Disp: , Rfl: pantoprazole (ProtoNix) 40 mg EC tablet, Take 1 tablet (40 mg) by mouth once daily in the morning. Take before meals., Disp: , Rfl: pravastatin (Pravachol) 40 mg tablet, Take 1 tablet (40 mg) by mouth once daily., Disp: 90 tablet, Rfl: 3 spironolactone (Aldactone) 25 mg tablet, Take 0.5 tablets (12.5 mg) by mouth once daily., Disp: , Rfl: tamsulosin (Flomax) 0.4 mg 24 hr capsule, Take 1 capsule (0.4 mg) by mouth once daily., Disp: , Rfl: Ventolin HFA 90 mcg/actuation inhaler, Inhale 2 puffs every 4 hours if needed., Disp: , Rfl: vitamins A,C,F-bufq-lekkxd (PreserVision AREDS) 2,148 mcg-113 mg-45 mg-17.4mg tablet, Take 1 tablet by mouth every 12 hours., Disp: , Rfl: Assessment/Plan 1. Atypical atrial flutter (Multi) ECG 12 Lead Aspartate Aminotransferase Basic Metabolic Panel Thyroid Stimulating Hormone XR chest 2 views Complete Pulmonary Function Test (Spirometry/DLCO/Lung Volumes) Vascular US Abdominal Aorta Aneurysm AAA Screening Aspartate Aminotransferase Basic Metabolic Panel Thyroid Stimulating Hormone 2. Essential hypertension Follow Up In Cardiology Follow Up In Cardiology Vascular US Abdominal Aorta Aneurysm AAA Screening 3. High risk medication use Aspartate Aminotransferase Basic Metabolic Panel Thyroid Stimulating Hormone XR chest 2 views Complete Pulmonary Function Test (Spirometry/DLCO/Lung Volumes) Aspartate Aminotransferase Basic Metabolic Panel Thyroid Stimulating Hormone 4. Mixed hyperlipidemia Vascular US Abdominal Aorta Aneurysm AAA Screening 5. Chronic obstructive pulmonary disease, unspecified COPD type (Multi) 6. BMI 30.0-30.9,adult 7. Former smoker Vascular US Abdominal Aorta Aneurysm AAA Screening 8. Obesity, Class I, BMI 30-34.9 9. Hypothyroidism, unspecified type Scribe Attestation By signing my name below, I, Price Nino LPN attest that this documentation has been prepared under the direction and in the presence of Marcus Recinos MD. Provider Attestation - Scribe documentation All medical record entries made by the Scribe were at my direction and personally dictated by me. I have reviewed the chart and agree that the record accurately reflects my personal performance of the history, physical exam, discussion and plan. documented in this encounter [facility] Work Phone: 01-06-2025 Instructions Virginia Crawford LPN - 01/06/2025 1:20 PM EST Please bring all medicines, vitamins, and herbal supplements with you when you come to the office. Prescriptions will not be filled unless you are compliant with your follow up appointments or have a follow up appointment scheduled as per instruction of your physician. Refills should be requested at the time of your visit. BMI was above normal measurement. Current weight: 102 kg (224 lb) Weight change since last visit (-) denotes wt loss -6 lbs Weight loss needed to achieve BMI 25: 40.1 Lbs Weight loss needed to achieve BMI 30: 3.3 Lbs Provided instructions on dietary changes. The following attachments cannot be sent through Care Everywhere.Heart Healthy Diet (Colombian)documented in this encounter [facility] Work Phone: 11-26-2024 History of Present illness Narrative Patient: Remedios Magaña : 1955 [...] Partner Violence: Unknown (12/26/2023) Received from [facility] Fear of Current or [...] and positive PT pedal pulses NEURO: 5.07 [place] Vasile monofilament test intact to digits and [...] underlying condition with diabetic polyneuropathy, unspecified whether care home insulin use ([facility]) PLAN Discussed proper foot care with patient [...] [facility] 12-04-2023 History of Present illness Narrative Marla Magaña is a 68 [...] hours if needed., Disp: , Rfl: vitamins A,C,X-nojh-gwxpeo (PreserVision AREDS) 2,148 mcg-113 mg-45 mg-17.4mg tablet, [...] type (CMS/HCC) 6. Coronary artery disease involving tribal coronary artery of tribal heart without angina pectoris 7. Obesity, Class I, BMI 30-34.9 documented in this encounter [facility] Work Phone: 12-04-2023 Instructions Leticia Mi LPN [...] January as scheduled documented in this encounter [facility] Work Phone: 01-01-2023 Evaluation note Encounter Date [...] Olga Phipps PharmD, Funmilayo Velazquez PharmD Candidate [employer] Other 02-06-2023 Evaluation note* Encounter Date Diagnosis [...] in 3 weeks. Seen by Ana Mujica [facility], Funmilayo Velazquez PharmD Candidate [employer] Other 01-23-2023 Evaluation note* Encounter Date Diagnosis [...] 2 weeks. Seen by Ana Mujica RPh [employer] Other 01-12-2023 Evaluation note* Encounter Date Diagnosis [...] week. Seen by Carlos A Salazar PharmD [place] [employer] Other 06-01-2022 Hospital Discharge instructions Follow Up Care 04/04/2022 10:45:36 With:JOVANNA EDMONDS Address: [address] [place] [address]- ( ) [phone] Business (1) When:1 to 2 days [facility]05-24-2022 [facility] Discharge summary Author Jin Berkowitz [facility] January 23, 2022 12:48pm Note Date/Time January 23, 2022 12: 48pm [facility] [address] [place] [id number] Discharge Summary Signed Patient: Remedios Magñaa MR#: [id number] : 1955 Acct:[id number] Age/Sex: 66 / M Adm Date: 2 Loc: Room: [address] [place] [address]: Jin Berkowitz MD Copies to: MD Jin Sommer MD~ Providers Date of Discharge: 01/23/22 Discharging Provider: Jin Berkowitz Primary Care Provider: iTrso Frausto Consults: 01/20/22 02:35 Consult to Cardiology [...] reformed smoker was recommended to go to [facility] after he was found to have [...] atrial flutter and was recommended togo to [facility].? EKG done there showed changes suspicious for ACS, ED physician spoke to cardiology here and was recommended to transfer here for further evaluation and management.? The patient was transferred to [facility] for further evaluation. Cardiology was consulted. [...] Home Additional Instructions: DISCHARGE INSTRUCTIONS FOR CARDIAC DIRECTOR CAMP PHONE NUMBER OF YOUR PHYSICIAN: [phone] PROCEDURE: Heart Cath The following instructions have [...] cold, numb, blue or white, call the machine iii coremaker immediately. 4. ACTIVITY: You are advised to [...] follow the instructions on the bottle. [facility] is not responsible for incorrect prescription [...] Patient Ordered By: Ama Morrison Follow Up: [facility] [Outside] Marcus Recinos MD [Active Staff] - 02/13/22 12:40 pm Tirso Frausto MD [Primary Care Provider] - (You have been scheduled for a follow up appointment for the following date and time, please call to rescheduleif needed.) Documented By: Jin Berkowitz MD 01/23/22 1244 Signed By: <Electronically signed by Jin Berkowitz MD> 01/23/22 1248 [facility] Work Phone: 1(295) 168-975703-22-2022 Progress note Author Brandt Pteit [facility] January 23, 2022 8:50am Note Date/Time January 23, 2022 8:5 0am [facility] [address] [place] [address] Cardiology Progress Note Signed Patient: Remedios Magaña MR#: [id number] : 1955 Acct:[id number] Age/Sex: 66 / M Adm Date: 2 Loc: Room: [address] [place] [address] Type : ADM INOo Attending Dr: Jin [...] for elective cardioversion in 4 weeks for [facility] of normal sinus mechanism (3) Diabetes mellitus: [...] signed by Brandt Petit MD> 01/23/22 0850 [facility] Work Phone: 1(593) 767-486403-22-2022 Hospital Discharge instructions Additional Instructions DISCHARGE INSTRUCTIONS FOR CARDIAC DIRECTOR CAMP PHONE NUMBER OF YOUR PHYSICIAN: [phone] PROCEDURE: Heart Cath The following instructions have [...] cold, numb, blue or white, call the machine iii coremaker immediately. 4. ACTIVITY: You are advised to [...] follow the instructions on the bottle. [facility] is not responsible for incorrect prescription information provided by the patient during their visit. Do not stop your medications without consulting your health care provider. Please take the list with you to your next doctor's appointment.[facility] Work Phone: 1(601) 595-707703-21-2022 Progress note Author Jin Berkowitz [facility] January 22, 2022 1:17pm Note Date/Time January 22, 2022 1:1 2pm [facility] [address] [place] [address] Hospitalist Progress Note Signed Patient: Remedios Magaña MR#: [id number] : 1955 Acct:[id number] Age/Sex: 66 / M Adm Date: 2 Loc: Room: [address] [place] [address] Type : ADM INOo Attending Dr: Jin [...] <Electronically signed by Jin Berkowitz MD> 01/22/22 131 [facility] Work Phone: 1(375) 915-765603-20-2022 Progress note Author Ama Morrison [facility] January 21, 2022 5:02pm Note Date/Time January 21, 2022 3:1 9pm [facility] [address] [place] [address] Hospitalist Progress Note Signed with Addenda Patient: Remedios Magaña MR#: [id number] : 1955 Acct:[id number] Age/Sex: 66 / M Adm Date: 2 Loc: Room: [address] [place] [address] Type : ADM INOo Attending Dr: Ama [...] signed by Ama Morrison MD> 01/21/22 1524 [facility] Work Phone: 1(499) 229-161603-20-2022 Progress note Author Brandt Petit [facility] January 21, 2022 10:42am Note Date/Time January 21, 2022 10: 41am [facility] [address] [place] [address] Cardiology Progress Note Signed Patient: Remedios Magaña MR#: [id number] : 1955 Acct:[id number] Age/Sex: 66 / M Adm Date: 2 Loc: Room: [address] [place] [address] Type : ADM INOo Attending Dr: Ama [...] Laboratory Results - last 24 hr 01/20/22 01/20/2222 06:11 06:11 11:15 Corrected WBC Uncorrected WBC Count RBC Hgb Hct MCV MCH MCHC RDW Plt Count MPV Neut % (Auto) Lymph % (Auto) [place] % (Auto) Eos % (Auto) Baso % (Auto) Neut # (Auto) Lymph # (Auto) [place] # (Auto) Eos # (Auto) Baso # (Auto) Nucleated RBC % (auto) APTT POC Glucose 133 POC Glucose Comment Glu2: cleaned meter Troponin I High Sens 7 Add-On Test Request Cancelled 01/20/22 01/20/22 01/20/22 16:41 17:37 20:51 Corrected WBC Uncorrected WBC Count RBC Hgb Hct MCV MCH MCHC RDW Plt Count MPV Neut % (Auto) Lymph % (Auto) [place] % (Auto) Eos % (Auto) Baso % (Auto) Neut # (Auto) Lymph # (Auto) [place] # (Auto) Eos # (Auto) Baso # [...] % (Auto) 56.3 Lymph % (Auto) 26.4 [place] % (Auto) 13.0 Eos % (Auto) 3.1 Baso % (Auto) 1.2 Neut # (Auto) 2.8 Lymph # (Auto) 1.3 [place] # (Auto) 0.6 Eos # (Auto) 0.2 Baso # (Auto) 0.1 Nucleated RBC % (auto) 0.2 APTT 81.3 H POC Glucose 113 POC Glucose Comment Troponin I High Sens Add-On Test Request 01/21/22 07:15 Corrected WBC Uncorrected WBC Count RBC Hgb Hct MCV MCH MCHC RDW Plt Count MPV Neut % (Auto) Lymph % (Auto) [place] % (Auto) Eos % (Auto) Baso % (Auto) Neut # (Auto) Lymph # (Auto) [place] # (Auto) Eos # (Auto) Baso # [...] signed by Brandt Petit MD> 01/21/22 1042 [facility] Work Phone: 1(507) 774-766603-19-2022 Consult note Author Brandt Petit [facility] January 20, 2022 5:08pm Note Date/Time January 20, 2022 5:0 8pm [facility] [address] [place] [address] Cardiology Consult Note Signed Patient: Remedios Magaña MR#: [id number] : 1955 Acct:[id number] Age/Sex: 66 / M Adm Date: 2 Loc: Room: [address] [place] [address] Type : ADM INOo Attending Dr: Ama [...] breath with exertion. He went to an lpn medical assistant appointment at which time he was told [...] that the patient last night went to [facility] emergency department for evaluation. In the [facility] ER, an EKG was checked which again [...] mg-vit E 90 mg-zinc 40 mg-copper 1 ai-hsucff-vktcbw capsule (PreserVision AREDS-2) 1 tab PO BID [...] x10E3/uL Lymph # (Auto) 1.3 (1.00-4.8) x10E3/uL [place] # (Auto) 0.6 (0.0-0.8) x10E3/uL Eos # [...] patient. Documented By: Brandt Petit MD 01/20/22 4968 Signed By: <Electronically signed by Brandt Petit MD> 01/20/22 1706 [facility] Work Phone: 1(339) 156-326803-19-2022 History and physical note Author Pola Anders [facility] January 20, 2022 6:26am Note Date/Time January 20, 2022 2:4 5am [facility] [address] [place] [address] Hospitalist H&P Signed Patient: Remedios Magaña MR#: [id number] : 1955 Acct:[id number] Age/Sex: 66 / M Adm Date: 2 Loc: Room: [address] [place] [address] Type : ADM IN Attending Dr: Pola Anders MD Copies to: MD Tirso Chew MD~ HPI DATE OF EXAMINATION: 01/20/22 CHIEF COMPLAINT: chest pain HISTORY OF PRESENT ILLNESS: Patient is a 66-year-old gentleman past medical history of diabetes diet- controlled, hyperlipidemia, BPH, reformed smoker was recommended to go to [facility] after he was found to have [...] atrial flutter and was recommended togo to [facility]. EKG done there showed changes suspicious [...] negative unless noted below or in HPI [facility] Medical History (Updated 01/20/22 @ 02:46 by [...] mg-vit E 90 mg-zinc 40 mg-copper 1 wm-jmavln-rksxfc capsule (PreserVision AREDS-2) 1 tab PO BID [...] and is hemodynamically stable Labs reviewed from [facility] ED which are essentially normal including TSH and Troponin Obtain lipid panel, A1c, echo Consult cardiology Ordered routine labs Telemetry Fall precautions CIWA protocol Resume heparin drip that has been started at [facility] DVT prophylaxis CODE STATUS full code. Documented By: Pola Anders MD 01/20/22 0238 Signed By: <Electronically signed by Pola Andesr MD> 01/20/22 0626 [facility] Work Phone: Discharge summary Author Marcus Recinos [facility] March 27, 2022 9:20am Note Date/Time March 27, 2022 9:20a m [facility] [address] [place] [address] Discharge Summary Signed Patient: Remedios Magaña MR#: [id number] : 1955 Acct:[id number] Age/Sex: 66 / M Adm Date: 2 Loc: Room: Attending Dr: Marcus Recinos MD Copies to: MD Marcus Sommer MD, [facility]~ Providers Date of Discharge: 03/27/22 [...] RF: 0 Documented By: Marcus Recinos MD, [facility] 2 0920 Signed By: <Electronically signed by MD HAFSA Recinos> 03/27/22 0920 [facility] Work Phone: Evaluation + Plan note No data available for this [facility] Diagnosis Onset Date Resolution Status Atrial flutter acute Cardiomyopathy acute Chronic alcohol use acute Diabetes mellitus acute Hyperlipidemia acute [facility] Work Phone: Evaluation noteNo assessment information available [facility] Work Phone: Evaluation noteNo InformationNort ServiceBench Other Evaluation note* Diagnosis Atrial flutter, unspecified type (CMS/HCC)- Primary Benign essential hypertension Essential hypertension, benign High risk medication use Hyperlipidemia, unspecified hyperlipidemia type Pulmonary emphysema, unspecified emphysema type (CMS/HCC) Coronary artery disease involving tribal coronary artery of tribal heart without angina pectoris Obesity, Class I, BMI 30-34.9 documented in this encounter [facility] Work Phone: Evaluation note* Diagnosis Contusion of right foot, initial encounter- Primary Pain due to onychomycosis of toenails of both feet Diabetes mellitus due to underlying condition with diabetic polyneuropathy, unspecified whether buttermaker insulin use (CMS/HCC) [facility] Diagnosis Atypical atrial flutter (Multi)- Primary Essential hypertension Unspecified essential hypertension High risk medication use Mixed hyperlipidemia Chronic obstructive pulmonary disease, unspecified COPD type (Multi) BMI 30.0-30.9,adult Former smoker Personal history of tobacco use, presenting hazards to health Obesity, Class I, BMI 30-34.9 Hypothyroidism, unspecified type documented in this encounter [facility] Work Phone: Evaluation note* Diagnosis Diabetes mellitus due to underlying condition with diabetic polyneuropathy, unspecified whether buttermaker insulin use (CMS/HCC)- Primary Pain due to onychomycosis of toenails of both feet [facility] this encounter [facility] N[facility]* Joe García DPM - 02/04/2025 10:20 AM EDT Patient: Remedios Magaña : 1955 PCP: Tirso [...] care and treatment. Patient is DM2 Patient has hx of contusion to the right foot. Allergies: Allergies Allergen Reactions Ciprofloxacin Rash Other Reaction(s): sunburn look/rash Past Medical History: No past medical history on file. Medications: Current Outpatient Medications: amiodarone (Pacerone) 200 MG tablet, Take 200 mg by mouth in the morning., Disp: , Rfl: ferrous sulfate 325 (65 Fe) MG tablet, Take 1 tablet by mouth in the morning and 1 tablet before bedtime., Disp: , Rfl: levothyroxine (Synthroid, Levoxyl) 50 MCG tablet, Take 50 mcg by mouth in the morning. Take before meals., Disp: , Rfl: pantoprazole (ProtoNix) 40 MG EC tablet, Take 40 mg by mouth Daily, Disp: , Rfl: pravastatin (Pravachol) 40 MG tablet, Take 40 mg by mouth in the morning., Disp: , Rfl: spironolactone (Aldactone) 25 MG [...] Partner Violence: Unknown (12/26/2023) Received from [facility] [place] [facility] Fear of [...] growth with thin shiny atrophic skin bilaterally. negative edema to dorsum of right lateral foot with negative openings and skin or erythema VASC: Negative DP and positive PT pedal pulses NEURO: 5.07 [place] Vasile monofilament test intact to digits and forefoot bilaterally 125Hz tuning fork diminished to 1st MPJ bilaterally ORTHO: Positive pain on palpation to toenails of the left 1,2,3,4,5 toes and right 1,2,3,4,5 toes Minimal palpation lateral right foot and area of cuboid region ASSESSMENT 1. Diabetes mellitus due to underlying condition with diabetic polyneuropathy, unspecified whether buttermaker insulin use ([facility]) 2. Pain due to onychomycosis of toenails of both feet PLAN Discussed proper foot care with patient today. Debride nails in length and thickness digits 1 through 10 Patient educated today on proper diabetic foot care including monitoring feet daily for any signs of infection openings in the skin or irregularities to both feet. Patient had a diabetic neurologicalexam today to both their feet and discussed proper shoe gear. Joe García DPM documented in this [facility]NOB[facility] Dis[facility] instructions [facility] Work Phone: [facility] Dis[facility] instructions[facility] Work Phone: [facility] instructions[facility] Work Phone: Progress note No data available for this section [facility] Chief Complaint and Reason for [...] Recinos MD due to AFIB. Dr. Darwin Conor, DO in suite. Patient is here due to medication change and to see if he is still in AFIB. Medication list reviewed and updated verbally. Pt has no complaints. EKG reviewed by Balwinder Scales RN. To Dr. Marcus Recinos MD for review.Amiodarone Order sent to [facility] for testing due in MARCH* S/P CARDIOVERSION. [...] in the past Amiodarone Order sent to [facility] for testing due in JulyAmiodarone order sent to [facility] for October 2022* REMEDIOS MAGAÑA is [...] more aggressive diet. Amiodarone order sent to [facility] for January 2023* Patient in the [...] test done please contact our office at [phone] and press option #4 so that we may assist you in the problems. * Thank you for your compliance with this testing. * The Staff * [facility] * Please have done July 2023 Family [...] Procedures ECG 12 Lead Marcus Recinos MD [address] [place] [address] 2, [address] [address] Referral ID Status Reason Start Date Expiration Date V [facility] Requested Visits Authorized [id number] Authorized 12/04/2023 12/03/2024 1 1 Specialty Diagnoses / Procedures Referred By Contac t Referred To Contact Cardiology Diagnoses Benign essential hypertension Atrial flutter, unspecified type (CMS/HCC) Procedures Follow Up In Cardiology Marcus Recinos MD [address] [place] [address] 2, [address] [address] Marcus Recinos MD [address] [place] [address] 2, [address] [address] Referral ID Status Reason Start Date Expiration Date V isits Requested Visits Authorized [id number] Authorized 12/04/2023 12/03/2024 1 1 Additional Source [...] MD Attending Provider, Referring Prov ider Active Angio Technologist Relationship Specialty Start Date End Date Tirso Frausto MD [address] [place] [address] PCP - General 11/04/99 Angio Technologist Relationship Specialty Start Date End Date Tirso Frausto MD [address] [place] [address] PCP - General Family Medicine 11/26/24 Angio Technologist Relationship Specialty Start Date End Date Tirso Frausto MD [address] [place] [address] PCP - General 11/04/99 Angio Technologist Relationship Specialty Start Date End Date Tirso Frausto MD [address] [place] [address] PCP - General Family Medicine 11/26/24 Angio Technologist Relationship Specialty Start Date End Date Tirso Frausto MD [address] [place] [address] PCP - General Family Medicine 11/26/24 (unrecognized sect ion and content) No Status Records FoundNo Status Records FoundNo Status Records FoundNo Status Records FoundNo Status Records FoundNo Status Records FoundNo Status Records Found INFORMATION SOURCE (unrecogn ized section and content) DATE CREATED AUTHOR 04/25/2022 [employer] DATE CREATED AUTHOR AUTHOR'S ORGANIZ ATION 02/10/2023 [facility] DATE CREATED AUTHOR AUTHOR'S ORGANIZ ATION 03/15/2023 [facility] DATE CREATED AUTHOR AUTHOR'S ORGANIZ ATION 04/12/2023 [facility] DATE CREATED AUTHOR AUTHOR'S ORGANIZ ATION 02/20/2024 [facility] DATE CREATED AUTHOR AUTHOR'S ORGANIZ ATION 01/08/2025 [facility] DATE CREATED AUTHOR AUTHOR'S ORGANIZ ATION 02/07/2025 [facility] EPIC Goals (unrecognized section and content) Goals may be documented in a n alternate section REASON FOR VISIT (unrecogniz ed section and content) Reason Comments Follow-up 6 months Specialty Diagnoses / Procedures Referred By Contac t Referred To Contact Diagnoses Atrial flutter, unspecified type (CMS/HCC) Procedures ECG 12 Lead Marcus Recinos MD [address] [place] [address], [address] [address] Referral ID Status Reason Start Date Expiration Date V isi Requested Visits Authorized [id number] Authorized 12/04/2023 12/03/2024 1 1 Reason Comments Toenail Care Non dm nail care Reason Comments Follow-up 6m Specialty Diagnoses / Procedures Referred By Contac t Referred To Contact Cardiology Diagnoses Benign essential hypertension Procedures Follow Up In Cardiology Marcus Recinos MD [address] [place] [address] 2, [address] [address] Phone: tel: fax: Marcus Recinos MD [address] [place] [address] 2, [address] [address] Phone: tel: fax: Referral ID Status Reason Start Date Expiration Date V isits Requested Visits Authorized [id number] Authorized 06/03/2024 06/03/2025 1 1 Reason Comments DM Foot Care Dm nail care FOR RECORDS PERTAINING TO PATIENTS [...] BE BASED ON THE PRIMARY CLINICAL RECORDS. [employer] provides no warranty or guarantee of the accuracy or completeness of information in this document.
[2025-03-13 09:23] LABS: Basophils Absolute Auto 0.1 10^3/uL (0.0-0.1); Basophils Percent Auto 1.6 % (0.2-2.0); Eosinophils Absolute Auto 0.2 10^3/uL (0.0-0.7); Eosinophils Percent Auto 3.8 % (0.9-7.0); Hematocrit 46.5 % (42.0-54.0); Hemoglobin 15.9 g/dL (14.0-18.0); Immature Granulocytes Abs Auto 0.02 10^3/uL (0.00-0.03); Immature Granulocytes Pct Auto 0.4 % (0.0-0.5); Lymphocytes Percent Auto 19.7 % (20.5-60.0); Mean Corpuscular HGB Conc 34.2 g/dL (29.9-35.2); Mean Corpuscular Hemoglobin 31.2 pg (25.9-34.0); Mean Corpuscular Volume 91.2 fL (80.0-94.0); Monocytes Absolute Auto 0.6 10^3/uL (0.3-0.8); Monocytes Percent Auto 12.3 % (1.7-12.0); Neutrophils Absolute Auto 3.1 10^3/uL (1.4-6.5); Neutrophils Percent Auto 62.2 % (43.0-75.0); Platelet Count 228 10^3/uL (150-450); Red Cell Distribution Width 12.5 % (11.0-15.0)
[2025-03-13 09:51] LABS: Estimated Average Glucose 134 mg/dL; Glycohemoglobin A1C 6.3 % (4.5-6.2)
[2025-03-13 10:07] LABS: Alanine Aminotransferase 149 U/L (16-63); Albumin Level 3.9 g/dL (3.4-5.0); Alkaline Phosphatase 55 U/L (46-116); Anion Gap 13.8; Aspartate Amino Transferase 101 U/L (15-37); BUN Creatinine Ratio 13.1; Bilirubin Total 1.1 mg/dL (0.2-1.0); Carbon Dioxide 26.7 mmol/L (21.0-32.0); Chloride 100 mmol/L (98-107); Chol HDL Ratio 2.5; Cholesterol 200 mg/dL (<=200); Estimated GFR (African America >60 (>=60 mL/min/1.73m^2); Estimated GFR (Non-African Ame >60 (>=60 mL/min/1.73m^2); Free T3 2.23 pg/mL (2.18-3.98); Globulin 3.9 g/dL; Glucose 137 mg/dL (74-106); HDL Cholesterol 80 mg/dL (40-60); Potassium 4.5 mmol/L (3.5-5.1); Prostate Specific Antigen Scrn 1.19 ng/mL (<=4.00); Sodium 136 mmol/L (136-145); Thyroid Stimulating Hormone 3.164 uIU/mL (0.358-3.740); Total Protein 7.8 g/dL (6.4-8.2); Triglycerides 67 mg/dL (<=150); VLDL CHOLESTEROL 13.4 mg/dL
== END 2025-03-13 09:05 | disposition home or self-care (01) ==
LOC: LAB 09:05
PROVIDERS: PCP Family Medicine; Visit Provider Family Medicine
DX: E11.65 Type 2 diabetes mellitus with hyperglycemia (principal); E78.5 Hyperlipidemia, unspecified; Z12.5 Encounter for screening for malignant neoplasm of prostate; I50.30 Unspecified diastolic (congestive) heart failure; I11.0 Hypertensive heart disease with heart failure
CPT/HCPCS: 36415; 80053; 80061; 83036; 83880; 84436; 84443; 84481; 85025; G0103

== ENCOUNTER 2025-03-17 08:49 | Outpatient (OUT) | payer MEDICARE, SELFPAY ==
--- NOTE | 2025-03-17 08:52 | US_ITS ---
The [address] [address] Patient Name: REMEDIOS VAUGHAN MRN: [id number] date: 1955 Sex: M Assigned Patient Location: [place] Current Patient Location: [place] Accession/Order Number: [id number] Exam Date: 03/17/2025 10:10 Report Date: 03/17/2025 10:13 At the request of: TIRSO MCCORMICK MD Procedure: US right upper quadrant EXAMINATION TYPE: US right upper quadrant DATE OF EXAM ORDERED: 03/17/2025 9:18 AM HISTORY: Abnormal Liver Enzymes, history of cholecystectomy COMPARISON: NONE TECHNIQUE: Realtime imaging limited to the right upper quadrant was performed. FINDINGS: The gallbladder has been previously removed. Common bile duct measures 3 mm in diameter. No intrahepatic or extrahepatic biliary dilatation is seen. The liver is normal in echo reflectivity. The liver is echogenic in respect to the right renal cortex suggesting hepatic steatosis. Hepatopedal flow is noted in the main portal vein. Partial visualization of the right kidney reveals no gross hydronephrosis. Partial visualization of the pancreas reveals no abnormality. US/US right upper quadrant IMPRESSION: Status post cholecystectomy. No intrahepatic or extrahepatic biliary ductal dilatation. Findings suggest hepatic steatosis. Impression dictated by: Donte Manzanares M.D. 03/17/2025 10:13 AM Dictation Location: [place] [address] Electronically authenticated by: [id number] Y Date: 03/17/2025 10:13
--- OUTSIDE RECORDS SUMMARY | 2025-03-17 09:11 | XMS_ITS | CCD ---
Author Organization [facility] Care Team Providers Care Syruper Name Role Phone MD Tirso Frausto Primary Care Provider [phone] MD Pola Anders Admit Provider MD Jin Berkowitz Attending Provider [phone] MD Ama Morrison Attending Provider [phone] Tirso Frausto Unavailable Unavailable Unavailable MD Marcus Recinos Attending Provider MD Marcus Recinos Referring Provider Tirso Frausto Primary Care Physician Unavailable Unavailable MD Tirso Frausto Primary Care Provider [phone] Jina Rios Unavailable Carlos A Salazar [...] Tirso Frausto MD Primary Care Provider [phone] Tirso Frausto MD Primary Care Provider Unavailable Primary Care Provider UnavailTirso Boland MD Primary Care Provider [phone] MARCUS RECINOS Attending Unavailable MARCUS RECINOS Referring Unavailable TIRSO FRAUSTO Primary Care Unavailable MARCUS RECINOS Attending Unavailable MARCUS RECINOS Referring Unavailable TIRSO FRAUSTO Primary Care Unavailable JOE GARCÍA Attending Unavailable JOE GARCÍA Attending Unavailable Allergies Allergy Classification Reported Allergen(s) Allergy Type Date of Onset Reaction(s) Facility (16 sources) Ciprofloxacin; Translations: [Ciprofloxacin] Drug Allergy 03-27-2022 [facility] (14 sources) Ciprofloxacin; Translations: [Cipro XR] Drug Allergy Rash [facility] 250 DO Work Phone: (1 source) Ciprofloxacin Drug Allergy 04-19-2015 [facility] (3 sources) Ciprofloxacin; Translations: [CIPROFLOXACIN (MIXTURE)] Drug Allergy 10-14-2023 [facility] Work Phone: Medications Current Medications Medication [...] ascorbic acid 226 mg / beta carotene 93147 unt / cuprous oxide 0.8 mg / dl-alpha tocopheryl acetate 200 unt / zinc oxide 34.8 mg oral capsule (3 sources) Vitamin C Start: 04-16-2022 take 1 capsule by mouth once daily PreserVision AREDS oral capsule 1 cap, Oral, Daily, Prophylaxis Start Date: 04/16/22 Status: Ordered take 1 tablet by kyle th every twelve hours vitamins A,C,T-aebk-bxtjhj (PreserVision AREDS) 2,148 mcg-113 mg-45 mg-17.4mg tablet [...] PO Daily January 20, 2022 12:00am Vit C,K-Yr-Yyptx-Lutein- Zeaxan (Preservision Areds-2) 250-90-40-1 mg Capsule (6 sources) Start: 01-20-2022 Vit C,P-Bk-Bcawz-Lut ein-Zeaxan (Preservision Areds-2) 250-90-40-1 mg Capsule Active 1 TAB PO Twice daily January 20, 2022 2:13am Start: 01-20-2022 Vit C,E-Zn-Elevator Builder xk-Zvaalo-Sifgzh (Preservision Areds-2) 250-90-40-1 mg Capsule Active 1 TAB PO Twice daily January 20, 2022 12:00am Completed/Discontinued Medications Medication Drug Class(es) Dates Sig (Normalized) Sig (Original) [id number] 200 actuat albuterol 0.09 mg/actuat metered dose [...] 1 tablet daily - being referred to [facility] to manage Quantity: 30 Refills: [...] Coronary arteriosclerosis; Translations: [Atherosclerotic heart disease of [place] coronary artery without angina pectoris] 12-04-2023 Chronic [...] sources) Taking high risk medication; Translations: [Other shelter (current) drug therapy] Onset: 10-14-2023 12-04-2023 Episodic [...] 01-01-2023 Episodic Other aftercare (7 sources) Other shelter (current) drug therapy; Translations: [OTH CASE PICKER CURRENT DRUG THERAPY] Onset: 10-22-2022 Episodic Other [...] 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, abnormal ECG [facility] [place] Work Phone: Physician Referralon 024 Physician Referral [phone] [id number] Normal [facility] ECG 12 Leadon 12-04-2023 ECG revealed normal sinus rhythm with first-degree AV block and left axis deviation [facility] [place] Work Phone: GLYCOHEMOGLOBIN A1Con 2022 ADA RECOMMENDATION SEE BELOW Normal [facility] Comment on above: Result Comment: ADA RECOMMENDED LIMIT 4.0 - 6.0 ADA THERAPEUTIC TARGET < 7.0 ACTION SUGGESTED > 7.0 Performed By: #### A 1C #### [facility] [address] [place] [address] Dr. Igor Hayes Glucose [Mass/Vol] 137 mg/dL Normal [facility] Comment on above: Performed By: #### A 1C #### [facility] [address] [place] [address] Dr. Igor Hayes HbA1c (Bld) [Mass fraction] 6.4 % Critically high 4.5-6.2 [facility] Comment on above: Performed By: #### A 1C #### [facility] [address] [address] [address] Igor Hayes LIPID PROFILEon 03-08-2023 CHOL-HDL RATIO NORM SEE BELOW Normal [facility] Comment on above: Result Comment: 3.3 - 4.4 LOW RISK 4.4 - 7.1 AVERAGE RISK 7.1 - 11.0 MODERATE RISK >11.0 HIGH RISK Performed By: #### A 1C #### [facility] [address] [address] [address] Igor Hayes Cholesterol [Mass/Vol] 181 mg/dL Normal <=200 [facility] Comment on above: Performed By: #### A 1C #### [facility] [address] [address] [address] Igor Hayes Cholesterol in HDL [Mass/Vol] 64 mg/dL Critically high 40-60 [facility] Comment on above: Performed By: #### A 1C #### [facility] [address] [address] [address] Igor Hayes Cholesterol in LDL [Mass/Vol] 99.2 mg/dL Normal [facility] Comment on above: Performed By: #### A 1C #### [facility] [address] [address] [address] Igor Hayes Cholesterol.total/Ch olesterol in HDL [Mass ratio] 2.8 {ratio} Normal [facility] Comment on above: Performed By: #### A 1C #### [facility] [address] [address] [address] Igor Hayes HDL NORMAL > or = 60 mg/dl - LO W CARDIOVASCULAR RISK <40 mg/dl - HIGH CARDIOVASCULAR RISK Normal [facility] Comment on above: Performed By: #### A 1C #### [facility] [address] [address] [address] Igor Hayes LDL CALC NORMAL SEE BELOW Normal [facility] Comment on above: Result Comment: <100 mg/dl OPTIMAL 100 - 129 mg/dl NEAR OR ABOVE OPTIMAL 130 - 159 mg/dl BORDERLINE HIGH 160 - 189 mg/dl HIGH >190 mg/dl VERY HIGH Performed By: #### A 1C #### [facility] [address] [place] [address] Dr. Igor Hayes Triglyceride [Mass/Vol] 89 mg/dL Normal <=150 [facility] Comment on above: Performed By: #### A 1C #### [facility] [address] [place] [address] Dr. Igor Hayes VLDL CALC 17.8 mg/dL Normal [facility] Comment on above: Performed By: #### A 1C #### [facility] [address] [place] [address] Dr. Igor Hayes INFLUENZA A AND B AGon 02-01 INFLUANEGH SEE BELOW Normal [facility] Comment on above: Result Comment: Nega tive for Flu A protein angiten. Infection due to Flu A cannot be ruled out. Flu A angiten in the sample may be below the detection limit of the test. Performed By: #### O BSCRN #### [facility] [address] [place] [address] Dr. Igor Hayes INFLUBNEGH SEE BELOW Normal [facility] Comment on above: Result Comment: Nega tive for Flu B protein antigen. Infection due to Flu B cannot be ruled out. Flu B antigen in the sample may be below the detection limit of the test. Performed By: #### O BSCRN #### [facility] [address] [place] [address] Dr. Igor Hayes INFLUENZA A AG Negative Normal NEGATIVE SEE COMMENT [facility] Comment on above: Performed By: #### O BSCRN #### [facility] [address] [place] [address] Dr. Igor Hayes INFLUENZA B AG Negative Normal NEGATIVE SEE COMMENT [facility] Comment on above: Performed By: #### O BSCRN #### [facility] [address] [place] [address] Dr. Igor Hayes SYMPTOMATIC COVID-19 ANTIGEN on 02-01-2023 EUA Statement SEE BELOW Normal [facility] Comment on above: Result [...] sooner. Performed By: #### A 1C #### [facility] [address] [place] [address] Dr. Igor Hayes SARS-CoV-2 (COVID-19) RNA VERONIQUE+probe Ql (Unsp spec) Positive Abnormal NEGATIVE [facility] Comment on above: Performed By: #### A 1C #### [facility] [address] [place] [address] Dr. Igor Hayes HEMOGLOBINon 01-10-2023 Hemoglobin (Bld) [Mass/Vol] 14.4 g/dL Normal 14.0-18.0 [facility] Comment on above: Performed By: #### H GB #### [facility] [address] [place] [address] Dr. Igor Hayes PROF CHEM 8 (BAS METB)on Anion gap [Moles/Vol] 8.4 mmol/L Normal [facility] Comment on above: Performed By: #### O BSCRN #### [facility] [address] [place] [address] Dr. Igor Hayes Calcium [Mass/Vol] 8.9 mg/dL Normal 8.5-10.1 [facility] Comment on above: Performed By: #### O BSCRN #### [facility] [address] [place] [address] Dr. Igor Hayes Chloride [Moles/Vol] 103 mmol/L Normal 98-107 [facility] Comment on above: Performed By: #### O BSCRN #### [facility] [address] [address] [address] Igor Hayes CO2 [Moles/Vol] 31.2 mmol/L Normal 21.0-32.0 [facility] Comment on above: Performed By: #### O BSCRN #### [facility] [address] [address] [address] Igor Hayes Creatinine [Mass/Vol] 1.02 mg/dL Normal 0.70-1.30 [facility] Comment on above: Performed By: #### O BSCRN #### [facility] [address] [address] [address] Igor Hayes EGFR-AF MARSHALLESE >60 Normal >=60 [facility] Comment on above: Performed By: #### O BSCRN #### [facility] [address] [address] [address] Igor Hayes EGFR-NON AF MARSHALLESE >60 Normal >=60 [facility] Comment on above: Performed By: #### O BSCRN #### [facility] [address] [address] [address] Igor Hayes Glucose [Mass/Vol] 133 mg/dL Critically high 74-106 [facility] Comment on above: Performed By: #### O BSCRN #### [facility] [address] [address] [address] Igor Hayes Potassium [Moles/Vol] 4.6 mmol/L Normal 3.5-5.1 [facility] Comment on above: Performed By: #### O BSCRN #### [facility] [address] [address] [address] Igor Hayes Sodium [Moles/Vol] 138 mmol/L Normal 136-145 [facility] Comment on above: Performed By: #### O BSCRN #### [facility] [address] [address] [address] Igor Hayes Urea nitrogen [Mass/Vol] 17.0 mg/dL Normal 7.0-18.0 [facility] Comment on above: Performed By: #### O BSCRN #### [facility] [address] [address] [address] Igor Hayes Urea nitrogen/Creatinine [Mass ratio] 16.7 mg/mg Normal [facility] Comment on above: Performed By: #### O BSCRN #### [facility] [address] [address] [address] Igor Hayes SGOTon 01-10-2023 AST [Catalytic activity/Vol] 36 U/L Normal 15-37 [facility] Comment on above: Performed By: #### O BSCRN #### [facility] [address] [address] [address] Igor Hayes TSHon 01-10-2023 TSH 4.230 uIU/mL Critically high 0.358-3.74 0 [facility] Comment on above: Performed By: #### O BSCRN #### [facility] [address] [place] [address] Dr. Igor Hayes XR CHEST 2 Von [...] by: DEE BARTON Date: 2023-01-10 13:02 Normal [facility] Prothrombin Time INRon 01-01 INR Coag (PPP) [Relative time] 2.9 {INR} [employer] Other Prothrombin Time INR [facility] [employer] Other Prothrombin Time INRon 12-10 INR Coag (PPP) [Relative time] 2.7 {INR} [employer] Other Prothrombin Time INR [facility] [employer] Other Prothrombin Time INRon 11-26 INR Coag (PPP) [Relative time] 2.6 {INR} [employer] Other Prothrombin Time INR [facility] [employer] Other Prothrombin Time INRon 11-15 INR Coag (PPP) [Relative time] 3.2 {INR} [employer] Other Prothrombin Time INR [facility] [employer] Other LIPID PROFILEon 11-14-2022 CHOL-HDL RATIO NORM SEE BELOW Normal [facility] Comment on above: Result Comment: 3.3 - 4.4 LOW RISK 4.4 - 7.1 AVERAGE RISK 7.1 - 11.0 MODERATE RISK >11.0 HIGH RISK Performed By: #### O BSCRN #### [facility] [address] [address] [address] Igor Hayes Cholesterol [Mass/Vol] 186 mg/dL Normal <=200 [facility] Comment on above: Performed By: #### O BSCRN #### [facility] [address] [address] [address] Igor Hayes Cholesterol in HDL [Mass/Vol] 64 mg/dL Critically high 40-60 [facility] Comment on above: Performed By: #### O BSCRN #### [facility] [address] [address] [address] Igor Hayes Cholesterol in LDL [Mass/Vol] 99.0 mg/dL Normal [facility] Comment on above: Performed By: #### O BSCRN #### [facility] [address] [address] [address] Igor Hayes Cholesterol.total/Ch olesterol in HDL [Mass ratio] 2.9 {ratio} Normal [facility] Comment on above: Performed By: #### O BSCRN #### [facility] [address] [address] [address] Igor Hayes HDL NORMAL > or = 60 mg/dl - LO W CARDIOVASCULAR RISK <40 mg/dl - HIGH CARDIOVASCULAR RISK Normal [facility] Comment on above: Performed By: #### O BSCRN #### [facility] [address] [address] [address] Igor Hayes LDL CALC NORMAL SEE BELOW Normal [facility] Comment on above: Result Comment: <100 mg/dl OPTIMAL 100 - 129 mg/dl NEAR OR ABOVE OPTIMAL 130 - 159 mg/dl BORDERLINE HIGH 160 - 189 mg/dl HIGH >190 mg/dl VERY HIGH Performed By: #### O BSCRN #### [facility] [address] [address] [address] Igor Hayes Triglyceride [Mass/Vol] 115 mg/dL Normal <=150 [facility] Comment on above: Performed By: #### O BSCRN #### [facility] [address] [address] [address] Igor Hayes VLDL CALC 23.0 mg/dL Normal [facility] Comment on above: Performed By: #### O BSCRN #### [facility] [address] [place] [address] Dr. Igor Hayes Tobacco Screening.on 023 Adult depression screening assessment No [facility] 250 DO Work Phone: Fall risk assessment a) No falls within the last year Merged with [facility] 250 DO Work Phone: Tobacco use status [facility] b) No Merged with [facility] 250 DO Work Phone: AMMONIAon 11-02-2022 Ammonia (P) [Moles/Vol] 12 umol/L Normal [facility] Comment on above: Performed By: #### A 1C #### [facility] [address] [place] [address] Dr. Igor Hayes PROF 14(COMP METB)on 022 Albumin [Mass/Vol] 3.9 g/dL Normal 3.4-5.0 [facility] Comment on above: Performed By: #### A 1C #### [facility] [address] [address] [address] Igor Hayes Albumin/Globulin [Mass ratio] 1.1 {ratio} Normal [facility] Comment on above: Performed By: #### A 1C #### [facility] [address] [address] [address] Igor Hayes ALP [Catalytic activity/Vol] 48 U/L Normal 46-116 [facility] Comment on above: Performed By: #### A 1C #### [facility] [address] [address] [address] Igor Hayes ALT [Catalytic activity/Vol] 70 U/L Critically high 16-63 [facility] Comment on above: Performed By: #### A 1C #### [facility] [address] [address] [address] Igor Hayes Anion gap [Moles/Vol] 13.5 mmol/L Normal [facility] Comment on above: Performed By: #### A 1C #### [facility] [address] [place] [address] Dr. Igor Hayes AST [Catalytic activity/Vol] 41 U/L Critically high 15-37 [facility] Comment on above: Performed By: #### A 1C #### [facility] [address] [place] [address] Dr. Igor Hayes Bilirubin [Mass/Vol] 0.6 mg/dL Normal 0.2-1.0 [facility] Comment on above: Performed By: #### A 1C #### [facility] [address] [place] [address] Dr. Igor Hayes Calcium [Mass/Vol] 9.0 mg/dL Normal 8.5-10.1 [facility] Comment on above: Performed By: #### A 1C #### [facility] [address] [place] [address] Dr. Igor Hayes Chloride [Moles/Vol] 102 mmol/L Normal 98-107 [facility] Comment on above: Performed By: #### A 1C #### [facility] [address] [address] [address] Igor Hayes CO2 [Moles/Vol] 28.9 mmol/L Normal 21.0-32.0 [facility] Comment on above: Performed By: #### A 1C #### [facility] [address] [place] [address] Dr. Igor Hayes Creatinine [Mass/Vol] 1.14 mg/dL Normal 0.70-1.30 [facility] Comment on above: Performed By: #### A 1C #### [facility] [address] [place] [address] Dr. Igor Hayes EGFR-AF MARSHALLESE >60 Normal >=60 [facility] Comment on above: Performed By: #### A 1C #### [facility] [address] [address] [address] Igor Hayes EGFR-NON AF MARSHALLESE >60 Normal >=60 [facility] Comment on above: Performed By: #### A 1C #### [facility] [address] [place] [address] Dr. Igor Hayes Globulin (S) [Mass/Vol] 3.7 g/dL Normal [facility] Comment on above: Performed By: #### A 1C #### [facility] [address] [place] [address] Dr. Igor Hayes Glucose [Mass/Vol] 166 mg/dL Critically high 74-106 [facility] Comment on above: Performed By: #### A 1C #### [facility] [address] [place] [address] Dr. Igor Hayes Potassium [Moles/Vol] 4.4 mmol/L Normal 3.5-5.1 [facility] Comment on above: Performed By: #### A 1C #### [facility] [address] [place] [address] Dr. Igor Hayes Protein [Mass/Vol] 7.6 g/dL Normal 6.4-8.2 [facility] Comment on above: Performed By: #### A 1C #### [facility] [address] [place] [address] Dr. Igor Hayes Sodium [Moles/Vol] 140 mmol/L Normal 136-145 [facility] Comment on above: Performed By: #### A 1C #### [facility] [address] [place] [address] Dr. Igor Hayes Urea nitrogen [Mass/Vol] 18.0 mg/dL Normal 7.0-18.0 [facility] Comment on above: Performed By: #### A 1C #### [facility] [address] [place] [address] Dr. Igor Hayes Urea nitrogen/Creatinine [Mass ratio] 15.8 mg/mg Normal [facility] Comment on above: Performed By: #### A 1C #### [facility] [address] [place] [address] Dr. Igor Hayes HEMOGLOBINon 10-22-2022 Hemoglobin (Bld) [Mass/Vol] 15.3 g/dL Normal 14.0-18.0 [facility] Comment on above: Performed By: #### A 1C #### [facility] [address] [place] [address] Dr. Igor Hayes PROF CHEM 8 (BAS METB)on Anion gap [Moles/Vol] 12.9 mmol/L Normal [facility] Comment on above: Performed By: #### A AD COELHO, TSH #### [facility] [address] [place] [address] Dr. Igor Hayes Calcium [Mass/Vol] 9.2 mg/dL Normal 8.5-10.1 [facility] Comment on above: Performed By: #### A AD COELHO, TSH #### [facility] [address] [place] [address] Dr. Igor Hayes Chloride [Moles/Vol] 103 mmol/L Normal 98-107 [facility] Comment on above: Performed By: #### A ST BMP, TSH #### [facility] [address] [place] [address] Dr. Igor Hayes CO2 [Moles/Vol] 29.7 mmol/L Normal 21.0-32.0 [facility] Comment on above: Performed By: #### A ST BMP, TSH #### [facility] [address] [place] [address] Dr. Igor Hayes Creatinine [Mass/Vol] 1.16 mg/dL Normal 0.70-1.30 [facility] Comment on above: Performed By: #### A ST BMP, TSH #### [facility] [address] [address] [address] Igor Hayes EGFR-AF MARSHALLESE >60 Normal >=60 [facility] Comment on above: Performed By: #### A ST, BMP, TSH #### [facility] [address] [address] [address] Igor Hayes EGFR-NON AF MARSHALLESE >60 Normal >=60 [facility] Comment on above: Performed By: #### A ST, BMP, TSH #### [facility] [address] [address] [address] Igor Hayes Glucose [Mass/Vol] 125 mg/dL Critically high 74-106 [facility] Comment on above: Performed By: #### A ST, BMP, TSH #### [facility] [address] [address] [address] Igor Hayes Potassium [Moles/Vol] 4.6 mmol/L Normal 3.5-5.1 [facility] Comment on above: Performed By: #### A ST, BMP, TSH #### [facility] [address] [address] [address] Igor Hayes Sodium [Moles/Vol] 141 mmol/L Normal 136-145 [facility] Comment on above: Performed By: #### A ST, BMP, TSH #### [facility] [address] [address] [address] Igor Hayes Urea nitrogen [Mass/Vol] 17.0 mg/dL Normal 7.0-18.0 [facility] Comment on above: Performed By: #### A ST, BMP, TSH #### [facility] [address] [address] [address] Igor Hayes Urea nitrogen/Creatinine [Mass ratio] 14.7 mg/mg Normal [facility] Comment on above: Performed By: #### A ST, BMP, TSH #### [facility] [address] [address] [address] Igor Hayes SGOTon 10-22-2022 AST [Catalytic activity/Vol] 49 U/L Critically high 15-37 [facility] Comment on above: Performed By: #### A ST, BMP, TSH #### [facility] [address] [address] [address] Igor Hayes TSHon 10-22-2022 TSH 4.171 uIU/mL Critically high 0.358-3.74 0 [facility] Comment on above: Performed By: #### A ST, BMP, TSH #### [facility] [address] [address] [address] Igor Hayes US SINGLE QUAD RT [...] STANFORD GARCÍA Date: 2022-10-22 20:43 Normal [facility] XR CHEST 2 Von 10-22-2022 XR [...] by: STANFORD GARCÍA Date: 2022-10-22 20:38 Normal [facility] INSULINon 10-10-2022 Insulin 19.8 uIU/mL Normal 2.6-24.9 [facility] Comment on above: Performed By: #### A 1C #### [facility] [address] [place] [address] Dr. Igor Hayes CBC AUTO DIFFon 10-09-2022 BASO # 0.1 103/ul Normal 0.0-0.1 [facility] Comment on above: Performed By: #### A 1C #### [facility] [address] [place] [address] Dr. Igor Hayes Basophils/100 WBC (Bld) 1.7 % Normal 0.2-2.0 [facility] Comment on above: Performed By: #### A 1C #### [facility] [address] [place] [address] Dr. Igor Hayes EO # 0.2 103/ul Normal 0.0-0.7 [facility] Comment on above: Performed By: #### A 1C #### [facility] [address] [place] [address] Dr. Igor Hayes Eosinophils/100 WBC (Bld) 3.1 % Normal 0.9-7.0 [facility] Comment on above: Performed By: #### A 1C #### [facility] [address] [place] [address] Dr. Igor Hayes Erythrocyte distribution width (RBC) [Ratio] 12.9 % Normal 11.0-15.0 [facility] Comment on above: Performed By: #### A 1C #### [facility] [address] [place] [address] Dr. Igor Hayes Hematocrit (Bld) [Volume fraction] 45.5 % Normal 42.0-54.0 [facility] Comment on above: Performed By: #### A 1C #### [facility] [address] [place] [address] Dr. Igor Hayes Hemoglobin (Bld) [Mass/Vol] 15.1 g/dL Normal 14.0-18.0 [facility] Comment on above: Performed By: #### A 1C #### [facility] [address] [place] [address] Dr. Igor Hayes IG # 0.01 10e3/ul Normal 0.00-0.03 [facility] Comment on above: Performed By: #### A 1C #### [facility] [address] [place] [address] Dr. Igor Hayes IG % 0.2 % Normal 0.0-0.5 [facility] Comment on above: Performed By: #### A 1C #### [facility] [address] [place] [address] Dr. Igor Hayes LYMPH # 1.2 103/ul Normal 1.2-3.8 [facility] Comment on above: Performed By: #### A 1C #### [facility] [address] [place] [address] Dr. Igor Hayes Lymphocytes/100 WBC (Bld) 23.9 % Normal 20.5-60.0 [facility] Comment on above: Performed By: #### A 1C #### [facility] [address] [place] [address] Dr. Igor Hayes MANUAL DIFF REQ NO Normal [facility] Comment on above: Performed By: #### A 1C #### [facility] [address] [place] [address] Dr. Igor Hayes MCH (RBC) [Entitic mass] 29.3 pg Normal 25.9-34.0 [facility] Comment on above: Performed By: #### A 1C #### [facility] [address] [place] [address] Dr. Igor Hayes MCHC (RBC) [Mass/Vol] 33.2 g/dL Normal 29.9-35.2 [facility] Comment on above: Performed By: #### A 1C #### [facility] [address] [place] [address] Dr. Igor Hayes MCV (RBC) [Entitic vol] 88.2 fL Normal 80.0-94.0 [facility] Comment on above: Performed By: #### A 1C #### [facility] [address] [place] [address] Dr. Igor Hayes MONO # 0.6 103/ul Normal 0.3-0.8 [facility] Comment on above: Performed By: #### A 1C #### [facility] [address] [place] [address] Dr. Igor Hayes Monocytes/100 WBC (Bld) 12.3 % Critically high 1.7-12.0 [facility] Comment on above: Performed By: #### A 1C #### [facility] [address] [place] [address] Dr. Igor Hayes NEUT # 3.1 103/ul Normal 1.4-6.5 [facility] Comment on above: Performed By: #### A 1C #### [facility] [address] [place] [address] Dr. Igor Hayes Neutrophils/100 WBC (Bld) 58.8 % Normal 43.0-75.0 [facility] Comment on above: Performed By: #### A 1C #### [facility] [address] [place] [address] Dr. Igor Hayes Platelet mean volume (Bld) [Entitic vol] 10.0 fL Normal 9.5-13.5 [facility] Comment on above: Performed By: #### A 1C #### [facility] [address] [place] [address] Dr. Igor Hayes PLT 234 103/ul Normal 150-450 [facility] Comment on above: Performed By: #### A 1C #### [facility] [address] [place] [address] Dr. Igor Hayes RBC 5.16 106/ul Normal 4.70-6.10 [facility] Comment on above: Performed By: #### A 1C #### [facility] [address] [place] [address] Dr. Igor Hayes WBC 5.2 103/ul Normal 4.0-11.0 [facility] Comment on above: Performed By: #### A 1C #### [facility] [address] [place] [address] Dr. Igor Hayes GLYCOHEMOGLOBIN A1Con 2021 ADA RECOMMENDATION SEE BELOW Normal [facility] Comment on above: Result Comment: ADA RECOMMENDED LIMIT 4.0 - 6.0 ADA THERAPEUTIC TARGET < 7.0 ACTION SUGGESTED > 7.0 Performed By: #### A 1C #### [facility] [address] [address] [address] Igor Hayes Glucose [Mass/Vol] 123 mg/dL Normal [facility] Comment on above: Performed By: #### A 1C #### [facility] [address] [place] [address] Dr. Igor Hayes HbA1c (Bld) [Mass fraction] 5.9 % Normal 4.5-6.2 [facility] Comment on above: Performed By: #### A 1C #### [facility] [address] [place] [address] Dr. Igor Hayes OCC BLD IMMUNO SCREENon OCCULT BLOOD Negative Normal NEGATIVE [facility] Comment on above: Performed By: #### O BSCRN #### [facility] [address] [place] [address] Dr. Igor Hayes PROF 14(COMP METB)on 022 Albumin [Mass/Vol] 3.9 g/dL Normal 3.4-5.0 [facility] Comment on above: Performed By: #### U THUY, CMP #### [facility] [address] [place] [address] Dr. Igor aHyes Albumin/Globulin [Mass ratio] 1.0 {ratio} Normal [facility] Comment on above: Performed By: #### U THYU, CMP #### [facility] [address] [place] [address] Dr. Igor Hayes ALP [Catalytic activity/Vol] 45 U/L Critically low 46-116 [facility] Comment on above: Performed By: #### U THUY, CMP #### [facility] [address] [place] [address] Dr. Igor Hayes ALT [Catalytic activity/Vol] 83 U/L Critically high 16-63 [facility] Comment on above: Performed By: #### U THUY, CMP #### [facility] [address] [place] [address] Dr. Igor Hayes Anion gap [Moles/Vol] 11.6 mmol/L Normal [facility] Comment on above: Performed By: #### U THUY, CMP #### [facility] [address] [address] [address] Igor Hayes AST [Catalytic activity/Vol] 44 U/L Critically high 15-37 [facility] Comment on above: Performed By: #### U THUY, CMP #### [facility] [address] [address] [address] Igor Hayes Bilirubin [Mass/Vol] 0.7 mg/dL Normal 0.2-1.0 [facility] Comment on above: Performed By: #### U THUY, CMP #### [facility] [address] [address] [address] Igor Hayes Calcium [Mass/Vol] 8.8 mg/dL Normal 8.5-10.1 [facility] Comment on above: Performed By: #### U THUY, CMP #### [facility] [address] [address] [address] Igor Hayes Chloride [Moles/Vol] 102 mmol/L Normal 98-107 [facility] Comment on above: Performed By: #### U THUY, CMP #### [facility] [address] [address] [address] Igor Hayes CO2 [Moles/Vol] 29.1 mmol/L Normal 21.0-32.0 [facility] Comment on above: Performed By: #### U THUY, CMP #### [facility] [address] [address] [address] Igor Hayes Creatinine [Mass/Vol] 1.02 mg/dL Normal 0.70-1.30 [facility] Comment on above: Performed By: #### U THUY, CMP #### [facility] [address] [place] [address] Dr. Igor Hayes EGFR-AF MARSHALLESE >60 Normal >=60 [facility] Comment on above: Performed By: #### U THUY, CMP #### [facility] [address] [place] [address] Dr. Igor Hayes EGFR-NON AF MARSHALLESE >60 Normal >=60 [facility] Comment on above: Performed By: #### U THUY, CMP #### [facility] [address] [address] [address] Igor Hayes Globulin (S) [Mass/Vol] 3.9 g/dL Normal [facility] Comment on above: Performed By: #### U THUY, CMP #### [facility] [address] [address] [address] Igor Hayes Glucose [Mass/Vol] 132 mg/dL Critically high 74-106 [facility] Comment on above: Performed By: #### U THUY, CMP #### [facility] [address] [address] [address] Igor Hayes Potassium [Moles/Vol] 4.7 mmol/L Normal 3.5-5.1 [facility] Comment on above: Performed By: #### U THUY, CMP #### [facility] [address] [place] [address] Dr. Igor Hayes Protein [Mass/Vol] 7.8 g/dL Normal 6.4-8.2 [facility] Comment on above: Performed By: #### U THUY, CMP #### [facility] [address] [place] [address] Dr. Igor Hayes Sodium [Moles/Vol] 138 mmol/L Normal 136-145 [facility] Comment on above: Performed By: #### U THUY, CMP #### [facility] [address] [place] [address] Dr. Igor Hayes Urea nitrogen [Mass/Vol] 16.0 mg/dL Normal 7.0-18.0 [facility] Comment on above: Performed By: #### U THUY, CMP #### [facility] [address] [place] [address] Dr. Igor Hayes Urea nitrogen/Creatinine [Mass ratio] 15.7 mg/mg Normal [facility] Comment on above: Performed By: #### U THUY, CMP #### [facility] [address] [place] [address] Dr. Igor Hayes URIC ACID SERUMon 10-09-2022 Urate [Mass/Vol] 4.9 mg/dL Normal 3.5-7.2 [facility] Comment on above: Performed By: #### U THUY, CMP #### [facility] [address] [address] [address] Igor Hayes Aspartate Amino Transferaseo n 07-30-2022 AST [Catalytic activity/Vol] 44 U/L High 10-42 [facility] Comment on above: Order Comment: PT FA STED 12 HRS Performed By: #### T SH3, BMP, AST #### [facility] [address] Basic Metabolic Panelon 07-06 Anion gap [Moles/Vol] 13.1 mmol/L Normal 6.0-15.0 [facility] Comment on above: Order Comment: PT FA STED 12 HRS Performed By: #### T SH3, BMP, AST #### [facility] [address] Calcium [Mass/Vol] 9.4 mg/dL Normal 8.2-10.2 [facility] Comment on above: Order Comment: PT FA STED 12 HRS Performed By: #### T SH3, BMP, AST #### [facility] [address] Chloride [Moles/Vol] 101 mmol/L Normal 95-114 [facility] Comment on above: Order Comment: PT FA STED 12 HRS Performed By: #### T SH3, BMP, AST #### [facility] [address] CO2 [Moles/Vol] 27.5 mmol/L Normal 22.0-30.0 [facility] Comment on above: Order Comment: PT FA STED 12 HRS Performed By: #### T SH3, BMP, AST #### [facility] [address] [place] [address] [place] Creatinine [Mass/Vol] 1.03 mg/dL Normal 0.64-1.27 [facility] Comment on above: Order Comment: PT FA STED 12 HRS Performed By: #### T SH3, BMP, AST #### [facility] [address] [place] [address] [place] Estimated GFR ( Mary > 60 Normal [facility] Comment on above: Order Comment: PT FA STED 12 HRS Result Comment: GFR estimated reference range: According to KDOQI guidelines, <60 ml/min/1.73m2 is sufficient to diagnose a patient with chronic kidney disease. Performed By: #### T AD HEAD, AST #### [facility] [address] Estimated GFR (Non- Am > 60 Normal [facility] Comment on above: Order Comment: PT FA STED 12 HRS Performed By: #### T AD HEAD, AST #### [facility] [address] Glucose [Mass/Vol] 111 mg/dL High 70-100 [facility] Comment on above: Order Comment: PT FA STED 12 HRS Result Comment: [place] om Glucose Reference Range is dependent on time and content of last meal. Glucose of more than 200 mg/dL in a nonstressed, ambulatory subject supports the diagnosis of Diabetes Mellitus. ADA recommended reference range Performed By: #### T AD HEAD, AST #### [facility] [address] Potassium [Moles/Vol] 4.6 mmol/L Normal 3.5-5.1 [facility] Comment on above: Order Comment: PT FA STED 12 HRS Performed By: #### T AD HEAD, AST #### [facility] [address] [id number] [place] Sodium [Moles/Vol] 137 mmol/L Normal 136-146 [facility] Comment on above: Order Comment: PT FA STED 12 HRS Performed By: #### T AD HEAD, AST #### [facility] [address] [id number] [place] Urea nitrogen [Mass/Vol] 15 mg/dL Normal 9-23 [facility] Comment on above: Order Comment: PT FA STED 12 HRS Performed By: #### T AD HEAD, AST #### [place] [id number] [facility] No Panel Informationon 07-30 13.1\S\13.1 Normal 6.0-15.0 -[facility] [facility] 250 DO Work Phone: 9.4\S\9.4 Normal 8.2-10.2 Merged with [facility] Katie mcmahon 250 DO Work Phone: 27.5\S\27.5 Normal 22.0-30.0 Merged with [facility] Katie mcmahon 250 DO Work Phone: [phone] 101\S\101 Normal 95-114 Merged with [facility] Katie mcmahon 250 DO Work Phone: [phone] 4.6\S\4.6 Normal 3.5-5.1 Merged with [facility] Katie mcmahon 250 DO Work Phone: 137\S\137 Normal 136-146 Merged with [facility] Katie mcmahon 250 DO Work Phone: > 60 Normal Merged with [facility] Katie mcmahon 250 DO Work Phone: Comment on above: GFR estimated refere nce range: According to KDOQI guidelines, <60 ml/min/1.73m2 is sufficient to diagnose a patient with chronic kidney disease. 1.03\S\1.03 Normal 0.64-1.27 Merged with [facility] Katie mcmahon 250 DO Work Phone: 15\S\15 Normal 9-23 Merged with [facility] Katie mcmahon 250 DO Work Phone: 111\S\111 above high threshold 70-100 Merged with [facility] Katie mcmahon 250 DO Work Phone: Comment on above: Random Glucose Refer ence Range is dependent on time and content of last meal. Glucose of more than 200 mg/dL in a nonstressed, ambulatory subject supports the diagnosis of Diabetes Mellitus. ADA recommended reference range 44\S\44 above high [facility] 10-[facility] 250 DO Work Phone: 3.34\S\3.34 Normal 0.45-5.33 Merged with [facility] Katie mcmahon 250 DO Work Phone: Comment on above: PERFORMED BY:[facility] [place], [place] [id number] MEDICAL DIRECTORSTEVEN NASH M.D. Radiologyon 07-30-2022 XR Chest 2 Views Normal -[facility] 250 DO Work Phone: Thyroid Stimulating Hormoneo n 07-30-2022 TSH Qn 3.34 m[IU]/L Normal 0.45-5.33 [facility] Comment on above: Order Comment: PT FA STED 12 HRS Result Comment: PERF ORMED BY: [facility] [address] [id number] PATHOLOGIST [employer] STEVEN NASH M.D. Performed By: #### T SH3, BMP, AST #### [place] [id number] [facility] XR chest 2V*on 07-30-2022 XR chest 2V* [facility] Main [place] [address] [place] [address] XRay Report Signed Patient: Remedios Magaña MR#: [id number] 4 : 1955 Acct:[id number] Age/Sex: 66 / M ADM Date: 07/30/22 Loc: RT Room: Type: [facility] Attending Dr: Marcus Recinos MD Copies [...] Miller Jr., D.O.07/30/2022 1:46 PM Dictation Location: [place] [address] Transcribed By: [facility] 07/30/22 1346 Dictated By: Walt Miller Jr, DO 07/30/22 1346 Signed By: 07/30/22 1346 Normal [facility] Aspartate Amino Transferaseo n 04-26-2022 AST [Catalytic activity/Vol] 46 U/L High 10-42 [facility] Comment on above: Performed By: #### T SH3, AST, BMP #### [facility] [address] Basic Metabolic Panelon 04-05 Calcium [Mass/Vol] 9.5 mg/dL Normal 8.2-10.2 [facility] Comment on above: Performed By: #### T SH3, AST, BMP #### [facility] [address] Chloride [Moles/Vol] 101 mmol/L Normal 95-114 [facility] Comment on above: Performed By: #### T SH3, AST, BMP #### [facility] [address] CO2 [Moles/Vol] 26.8 mmol/L Normal 22.0-30.0 [facility] Comment on above: Performed By: #### T SH3, AST, BMP #### [facility] [address] Creatinine [Mass/Vol] 1.05 mg/dL Normal 0.64-1.27 [facility] Comment on above: Performed By: #### T SH3, AST, BMP #### [facility] [address] Estimated GFR ( Mary > 60 [facility] Comment on above: Result Comment: GFR estimated reference range: According to KDOQI guidelines, <60 ml/min/1.73m2 is sufficient to diagnose a patient with chronic kidney disease. Performed By: #### T SH3, AST, BMP #### [facility] [address] [place] [address] [place] Estimated GFR (Non- Am > 60 [facility] Comment on above: Performed By: #### T SH3, AST, BMP #### [facility] [address] [place] [id number] [place] Glucose [Mass/Vol] 123 mg/dL High 70-100 [facility] Comment on above: Result Comment: [place] Glucose Reference Range is dependent on time and content of last meal. Glucose of more than 200 mg/dL in a nonstressed, ambulatory subject supports the diagnosis of Diabetes Mellitus. ADA recommended reference range Performed By: #### T SH3, AST, BMP #### [facility] [address] [id number] [place] Potassium [Moles/Vol] 4.9 mmol/L Normal 3.5-5.1 [facility] Comment on above: Performed By: #### T SH3, AST, BMP #### [facility] [address] [place] [id number] [place] Sodium [Moles/Vol] 138 mmol/L Normal 136-146 [facility] Comment on above: Performed By: #### T SH3, AST, BMP #### [facility] [address] [id number] [place] Urea nitrogen [Mass/Vol] 16 mg/dL Normal 07-27 [facility] Comment on above: Performed By: #### T SH3, AST, BMP #### [facility] [address] [place] [id number] [place] Creatinine and Glomerular fi ltration rate.predicted panel (S/P/Bld)Ordered By: Marcus Recinos on 04-26-2022 Creatinine [Mass/Vol] 1.05 mg/dL 0.64-1.27 [facility] Estimated glomerular filtrat ion rate (GFR) non- AmericanOrdered By: Marcus Recinos on 04-26-2022 GFR/1.73 sq M.predicted among non-blacks MDRD (S/P/Bld) [Vol rate/Area] > 60 mL/Min [facility] No Panel InformationOrdered By: Marcus Recinos on 04-26-2022 Estimated GFR () > 60 mL/Min [facility] Comment on above: GFR estimated refere nce range: According to KDOQI guidelines, <60 ml/min/1.73m2 is sufficient to diagnose a patient with chronic kidney disease. Pharmacy Creatinine Clearance (Chem N/A [facility] No Panel Informationon 04-26 9.5\S\9.5 Normal 8.2-10.2 Merged with [facility] Katie mcmahon 250 DO Work Phone: [phone] 26.8\S\26.8 Normal 22.0-30.0 Merged with [facility] Katie mcmahon 250 DO Work Phone: [phone] 101\S\101 Normal 95-114 Merged with [facility] Katie mcmahon 250 DO Work Phone: [phone] 4.9\S\4.9 Normal 3.5-5.1 Merged with [facility] Katie mcmahon 250 DO Work Phone: [phone] 138\S\138 Normal 136-146 Merged with [facility] Katie mcmahon 250 DO Work Phone: > 60 Normal Merg[facility] Katie mcmahon 250 DO Work Phone: Comment on above: GFR estimated refere nce range: According to KDOQI guidelines, <60 ml/min/1.73m2 is sufficient to diagnose a patient with chronic kidney disease. 1.05\S\1.05 Normal 0.64-1.27 Merged with [facility] Katie mcmahon 250 DO Work Phone: [phone] 16\S\16 Normal 9-23 Merged with [facility] Katie mcmahon 250 DO Work Phone: [phone] 123\S\123 above high threshold 70-100 Merged with [facility] Katie mcmahon 250 DO Work Phone: Comment on above: Random Glucose Refer ence Range is dependent on time and content of last meal. Glucose of more than 200 mg/dL in a nonstressed, ambulatory subject supports the diagnosis of Diabetes Mellitus. ADA recommended reference range 46\S\46 above high threshold 10-42 [facility] Work Phone: [phone] 4.75\S\4.75 Normal 0.45-5.33 [facility] Work Phone: [phone] Comment on above: PERFORMED BY:[place] [address] [place], [place] [id number] MEDICAL DIRECTORSTEVEN NASH M.D. Radiologyon 04-26-2022 XR Chest 2 Views Normal [facility] 250 DO Work Phone: Serum or plasma aspartate am inotransferase measurement (enzymatic activity/volume)Ordered By: Marcus Recinos on 04-26-2022 AST [Catalytic activity/Vol] 46 U/L 10-42 [facility] Serum or plasma calcium tiera urement (mass/volume)Ordered By: Marcus Recinos on 04-26-2022 Calcium [Mass/Vol] 9.5 mg/dL 8.2-10.2 [facility] Serum or plasma chloride marly surement (moles/volume)Ordered By: Marcus Recinos on 04-26-2022 Chloride [Moles/Vol] 101 mmol/L 95-114 [facility] Serum or plasma glucose tiera urement (mass/volume)Ordered By: Marcus Recinos on 04-26-2022 Glucose [Mass/Vol] 123 mg/dL 70-100 [facility] Comment on above: ADA recommended refe rence range Random Glucose Reference Range is dependent on time and content of last meal. Glucose of more than 200 mg/dL in a nonstressed, ambulatory subject supports the diagnosis of Diabetes Mellitus. Serum or plasma potassium me asurement (moles/volume)Ordered By: Marcus Recinos on 04-26-2022 Potassium [Moles/Vol] 4.9 mmol/L 3.5-5.1 [facility] Serum or plasma sodium measu rement (moles/volume)Ordered By: Marcus Recinos on 04-26-2022 Sodium [Moles/Vol] 138 mmol/L 136-146 [facility] Serum or plasma total carbon dioxide measurement (moles/volume)Ordered By: Marcus Recinos on 04-26-2022 CO2 [Moles/Vol] 26.8 mmol/L 22.0-30.0 [facility] Serum or plasma urea nitroge n measurement (mass/volume)Ordered By: Marcus Recinos on 04-26-2022 Urea nitrogen [Mass/Vol] 16 mg/dL 9-23 [facility] TSH DL <= 0.005 mIU/L QnOrde red By: Marcus Recinos on 04-26-2022 TSH Qn 4.75 m[IU]/L 0.45-5.33 [facility] Thyroid Stimulating Hormoneo n 04-26-2022 TSH Qn 4.75 m[IU]/L Normal 0.45-5.33 [facility] Comment on above: Result Comment: PERF ORMED BY: [place] [address] PATHOLOGIST COAL [employer]ER STEVEN NASH M.D. Performed By: #### T SH3, AST, BMP #### [address] XR chest 2V*on 04-26-2022 XR chest 2V* [facility] [place] [address] [place] [address] XRay Report Signed Patient: Remedios Magaña MR#: [id number] 4 : 1955 Acct:[id number] Age/Sex: 66 / M ADM Date: 04/26/22 Loc: RT Room: Type: [facility] Attending Dr: Marcus Recinos MD Copies to: Marcus Recinos MD, [facility] Ordering Provider: Marcus Recinos MD, [facility] Date of Service: 04/26/22 XR/XR chest 2V*: I48.92,Z79.899 PA AND LATERAL CHEST: CLINICAL HISTORY: 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 COMPARISON: Chest 01/21/2022 FINDINGS: Heart is normal in size. Lungs are clear. No free air. Osseous structures demonstrate degenerative change. XR/XR chest 2V* IMPRESSION: NO ACUTE CARDIOPULMONARY ABNORMALITY. Impression dictated by: Walt Miller Jr., D.O.04/26/2022 1:38 PM Dictation Location: [place] [address] Transcribed By: [facility] 04/26/22 1338 Dictated By: Walt Miller Jr, DO 04/26/22 1337 Signed By: 04/26/22 1338 Normal [facility] Office Visit (Cardiology)on 04-24-2022 Follow-up visit [...] rashes. Neurologi (more content not included)... Normal [employer] Tobacco Screening.on 022 Adult depression screening assessment No [facility] 250 DO Work Phone: Fall risk assessment a) No falls within the last year Merg[facility] with [facility] 250 DO Work Phone: Tobacco use status CP b) No Merged with [facility] mcmahon 250 DO Work Phone: No Panel Informationon 03-27 135\S\135 below low threshold 136-146 M[facility] with [facility] 250 DO Work Phone: 4.7\S\4.7 Normal 3.5-5.1 [facility] 250 DO Work Phone: 99\S\99 Normal 95-114 [facility] 250 DO Work Phone: [phone] 25.4\S\25.4 Normal 22.0-30.0 [facility] 250 DO Work Phone: Comment on above: PERFORMED BY:[place] [id number] [place], [place] [id number] MEDICAL DIRECTORSTEVEN NASH M.D. Serum or plasma chloride marly surement (moles/volume)Ordered By: Marcus Recinos on 03-27-2022 Chloride [Moles/Vol] 99 mmol/L 95-114 [facility] Serum or plasma potassium me asurement (moles/volume)Ordered By: Marcus Recinos on 03-27-2022 Potassium [Moles/Vol] 4.7 mmol/L 3.5-5.1 [facility] Serum or plasma sodium measu rement (moles/volume)Ordered By: Marcus Recinos on 03-27-2022 Sodium [Moles/Vol] 135 mmol/L 136-146 [facility] Serum or plasma total carbon dioxide measurement (moles/volume)Ordered By: Marcus Recinos on 03-27-2022 CO2 [Moles/Vol] 25.4 mmol/L 22.0-30.0 [facility] COVID-19 SOFIAOrdered By: Lincoln Recinos on 03-23-2022 SARS-CoV+SARS-CoV-2 (COVID-19) Ag IA.rapid Ql (Resp) Negative Negative [facility] Comment on above: This is a duplicate Larisa SARS Antigen (TYSON) result to be used for statistical tracking purpose only. Laboratory - Microbiology an d Antimicrobial susceptibilityon 03-23-2022 SARS-CoV-2 (COVID-19) RNA VERONIQUE+probe Ql (Unsp spec) [facility] y 250 DO Work Phone: No Panel InformationOrdered By: Marcus Recinos on 03-23-2022 SARS Antigen (LFIA) [facility] No Panel Informationon 03-23 Negative Normal Negative [facility] 250 DO Work Phone: Comment on above: This is a duplicate Larisa SARS Antigen (TYSON) result to be used for statistical tracking purpose only.PERFORMED BY:[place] [id number] [place], [place] [id number] MEDICAL DIRECTORSTEVEN NASH M.D. Covid-19 PCR (CVDTB)on 03-04 SARS-CoV-2 (COVID-19) RNA VERONIQUE+probe Ql (Unsp spec) Not detected Normal NOT DETECTED [facility] Comment on above: Result Comment: This test is not yet approved or cleared by the [place] FDA. When there are no FDA-approved or cleared tests available, and other criteria are met, FDA can make tests available under an emergency access mechanism called an Emergency Use Authorization (EUA). The EUA for this test is supported by the [place] of Health and Human Service's (HHS's) declaration [...] SARS-CoV-2. Performed By: #### C VDTB #### [facility] [address] [place] [address] Dr. Igor Hayes INFLUENZA A AND B AGon 03-15 [facility] SEE BELOW Normal [facility] Comment on above: Result Comment: Nega tive for Flu A protein angiten. Infection due to Flu A cannot be ruled out. Flu A angiten in the sample may be below the detection limit of the test. Performed By: #### O BSCRN #### [facility] [address] [place] [address] Dr. Igor [facility] SEE BELOW Normal [facility] Comment on above: Result Comment: Nega tive for Flu B protein antigen. Infection due to Flu B cannot be ruled out. Flu B antigen in the sample may be below the detection limit of the test. Performed By: #### O BSCRN #### [facility] [address] [place] [address] Dr. Igor Hayes INFLUENZA A AG Negative Normal NEGATIVE SEE COMMENT [facility] Comment on above: Performed By: #### O BSCRN #### [facility] [address] [place] [address] Dr. Igor Hayes INFLUENZA B AG Negative Normal NEGATIVE SEE COMMENT [facility] Comment on above: Performed By: #### O BSCRN #### [facility] [address] [place], [place] [address] Dr. Igor Hayes INTERNAL CONTROLS Within Normal Limits Normal Wi thin Normal Limits [facility] Comment on above: Performed By: #### O BSCRN #### [facility] [address] [place] [id number] Igor Hayes Office Visit (Cardiology)on 02-13-2022 [...] Weight Tips; Status:Complete - Retrospective Authorization; Done: [id number] Hyperlipidemia Renew: Simvastatin 20 MG Oral Tablet; TAKE 1 TABLET DAILY SocHx: Former smoker Tobacco Use Screening; Status:Complete; Done: [id number] Unspecified atrial flutter Start: Amiodarone HCl - 200 MG Oral Tablet; Take 1 tablet twice daily IO EKG Electrocardiogram- 12 Lead; Status:Complete; Done: [id number] Unlinked Stop: Digoxin 125 MCG Oral Tablet [...] Systems Constitutio (more content not included)... Normal [place] Tobacco Screening.on 022 Adult depression screening assessment No [facility] 250 DO Work Phone: Fall risk assessment a) No falls within the last year M[facility]ed with [facility] 250 DO Work Phone: Tobacco use status [facility] b) No M[facility] with [facility] 250 DO Work Phone: Glucose Glucometer (BldC) [M ass/Vol]Ordered By: Jin Berkowitz on 01-23-2022 Glucose [Mass/Vol] 155 mg/dL [facility] Comment on above: Random Glucose Refer ence Range is dependent on time and content of last meal. Glucose of more than 200 mg/dL in a nonstressed, ambulatory subject supports the diagnosis of Diabetes Mellitus. Activated partial thrombopla stin time (aPTT) in platelet poor plasma by coagulation aOrdered By: Ama Morrison on 01-22-2022 aPTT Coag (PPP) [Time] 71.1 s 25.1-36.5 [facility] Creatinine and Glomerular fi ltration rate.predicted panel (S/P/Bld)Ordered By: Ama Morrison on 01-22-2022 Creatinine [Mass/Vol] 1.04 mg/dL 0.64-1.27 [facility] Estimated glomerular filtrat ion rate (GFR) non- AmericanOrdered By: Ama Morrison on 01-22-2022 GFR/1.73 sq M.predicted among non-blacks MDRD (S/P/Bld) [Vol rate/Area] > 60 mL/Min [facility] No Panel InformationOrdered By: Jin Berkowitz on 01-22-2022 Bedside Glucose Comment Glu2: cleaned meter [facility] No Panel InformationOrdered By: Ama Morrison on 01-22-2022 Estimated GFR () > 60 mL/Min [facility] Comment on above: GFR estimated refere nce range: According to KDOQI guidelines, <60 ml/min/1.73m2 is sufficient to diagnose a patient with chronic kidney disease. Pharmacy Creatinine Clearance (Chem 82.75 [facility] Serum or plasma calcium tiera urement (mass/volume)Ordered By: Ama Morrison on 01-22-2022 Calcium [Mass/Vol] 9.4 mg/dL 8.2-10.2 [facility] Serum or plasma chloride marly surement (moles/volume)Ordered By: Ama Morrison on 01-22-2022 Chloride [Moles/Vol] 99 mmol/L 95-114 [facility] Serum or plasma glucose tiera urement (mass/volume)Ordered By: Ama Morrison on 01-22-2022 Glucose [Mass/Vol] 117 mg/dL 70-100 [facility] Comment on above: ADA recommended refe [...] on 01-22-2022 Potassium [Moles/Vol] 4.6 mmol/L 3.5-5.1 [facility] Serum or plasma sodium measu rement (moles/volume)Ordered By: Ama Morrison on 01-22-2022 Sodium [Moles/Vol] 139 mmol/L 136-146 [facility] Serum or plasma total carbon dioxide measurement (moles/volume)Ordered By: Ama Morrison on 01-22-2022 CO2 [Moles/Vol] 29.5 mmol/L 22.0-30.0 [facility] Serum or plasma urea nitroge n measurement (mass/volume)Ordered By: Ama Morrison on 01-22-2022 Urea nitrogen [Mass/Vol] 17 mg/dL 9-23 [facility] Basophils Auto (Bld) [#/Vol] Ordered By: Pola Anders on 01-21-2022 Basophils (Bld) [#/Vol] 0.1 10*3/uL 0.0-0.2 [facility] Basophils/100 WBC Auto (Bld) Ordered By: Pola Anders on 01-21-2022 Basophils/100 WBC (Bld) 1.2 % [facility] Blood hemoglobin measurement (mass/volume)Ordered By: Pola Anders on 01-21-2022 Hemoglobin (Bld) [Mass/Vol] 15.9 g/dL 13.0-17.0 [facility] Blood leukocytes automated c ount (number/volume)Ordered By: Pola Anders on 01-21-2022 WBC (Bld) [#/Vol] 4.9 10*3/uL 4.5-11.0 [facility] Eosinophils Auto (Bld) [#/Vo l]Ordered By: Pola Anders on 01-21-2022 Eosinophils (Bld) [#/Vol] 0.2 10*3/uL 0.0-0.45 [facility] Eosinophils/100 WBC Auto (Bl d)Ordered By: Pola Anders on 01-21-2022 Eosinophils/100 WBC (Bld) 3.1 % [facility] Erythrocyte distribution wid th Auto (RBC) [Ratio]Ordered By: Pola Anders on 01-21-2022 Erythrocyte distribution width (RBC) [Ratio] 13.4 % 12.0-14.8 [facility] Hematocrit Auto (Bld) [Volum e fraction]Ordered By: Pola Anders on 01-21-2022 Hematocrit (Bld) [Volume fraction] 46.7 % 38.8-50.0 [facility] Laboratory - Hematology and Cell countsOrdered By: Pola Martita on 01-21-2022 Nucleated RBC/100 WBC (Bld) [Ratio] 0.2 % 0-0.5 [facility] Lymphocytes Auto (Bld) [#/Vo l]Ordered By: Pola Martita on 01-21-2022 Lymphocytes (Bld) [#/Vol] 1.3 10*3/uL 1.00-4.8 [facility] Lymphocytes/100 WBC Auto (Bl d)Ordered By: Pola Martita on 01-21-2022 Lymphocytes/100 WBC (Bld) 26.4 % [facility] MCH Auto (RBC) [Entitic mass ]Ordered By: Pola Martita on 01-21-2022 MCH (RBC) [Entitic mass] 30.8 pg 27.5-35.2 [facility] MCHC Auto (RBC) [Mass/Vol]Or dered By: Pola Martita on 01-21-2022 MCHC (RBC) [Mass/Vol] 34.2 g/dL 32.5-35.6 [facility] MCV Auto (RBC) [Entitic vol] Ordered By: Pola Martita on 01-21-2022 MCV (RBC) [Entitic vol] 90.2 fL 83.5-101 [facility] Monocytes Auto (Bld) [#/Vol] Ordered By: Pola Martita on 01-21-2022 Monocytes (Bld) [#/Vol] 0.6 10*3/uL 0.0-0.8 [facility] Monocytes/100 WBC Auto (Bld) Ordered By: Pola Martita on 01-21-2022 Monocytes/100 WBC (Bld) 13.0 % [facility] Neutrophils Auto (Bld) [#/Vo l]Ordered By: Pola Martita on 01-21-2022 Neutrophils (Bld) [#/Vol] 2.8 10*3/uL 1.8-7.7 [facility] Neutrophils/100 WBC Auto (Bl d)Ordered By: Pola Martita on 01-21-2022 Neutrophils/100 WBC (Bld) 56.3 % [facility] Platelet mean volume Auto (B ld) [Entitic vol]Ordered By: Pola Anders on 01-21-2022 Platelet mean volume (Bld) [Entitic vol] 9.2 fL 6.6-10.1 [facility] Platelets Auto (Bld) [#/Vol] Ordered By: Pola Anders on 01-21-2022 Platelets (Bld) [#/Vol] 176 10*3/uL 150-450 [facility] RBC Auto (Bld) [#/Vol]Ordere d By: Pola Anders on 01-21-2022 RBC (Bld) [#/Vol] 5.18 10*6/uL 3.90-5.60 [facility] Cholesterol [Mass/volume] in Serum or PlasmaOrdered By: Pola Anders on 01-20-2022 Cholesterol [Mass/Vol] 155 mg/dL 140-200 [facility] Comment on above: Chol less than 200 m g/dl low riskChol 201-239 mg/dl borderline riskChol 240 mg/dl and greater high risk Chol less than 200 m g/dl low risk Chol 201-239 mg/dl borderline risk Chol 240 mg/dl and greater high risk Cholesterol in LDL Calc [Mas s/Vol]Ordered By: Pola Anders on 01-20-2022 Cholesterol in LDL [Mass/Vol] 82 mg/dL 0-100 [facility] Comment on above: LDL ATP III [...] 01-20-2022 Cholesterol in VLDL [Mass/Vol] 31 mg/dL [facility] Glucose mean value [Mass/vol ume] in Blood Estimated from glycated hemoglobinOrdered By: Pola Anders on 01-20-2022 Average glucose Estimated from glycated hemoglobin (Bld) [Mass/Vol] 140 mg/dL [facility] Hemoglobin A1c percentageOrd ered By: Pola Anders on 01-20-2022 HbA1c (Bld) [Mass fraction] 6.5 % 4.3-5.6 [facility] Comment on above: Increased risk for d iabetes: 5.7 - 6.4diabetes: >6.4glycemic control for adults with diabetes: <7.0 Increased risk for d iabetes: 5.7 - 6.4 diabetes: >6.4 glycemic control for adults with diabetes: <7.0 Laboratory - CoagulationOrde red By: Pola Anders on 01-20-2022 PT Coag (PPP) [Time] 15.6 s 9.0-12.9 [facility] Platelet poor plasma interna tional normalized ratio (INR) by coagulation assay (relatOrdered By: Pola Anders on 01-20-2022 INR Coag (PPP) [Relative time] 1.4 {INR} [facility] Comment on above: INR Therapeutic Rang [...] Cholesterol in HDL [Mass/Vol] 41 mg/dL 29-71 [facility] Comment on above: HDL CHOL ATP-III [...] olesterol in HDL [Mass ratio] 3.8 {ratio} [facility] Triglyceride [Mass/volume] i n Serum or PlasmaOrdered By: Pola Anders on 01-20-2022 Triglyceride [Mass/Vol] 158 mg/dL 35-149 [facility] Comment on above: TRIG ATP III [...] High sensitivity method [Mass/Vol] 7 pg/mL 0-20 [facility] Vital Signs Date Time Vital Sign Value Performing Clinician Facility 02-04-2025 10:[id number] Body height 182.9 cm Joe EVERETTM Work Phone: [facility] 02-04-2025 10:08-040 Body mass index (BMI) [Ratio] 31.19 kg/m2 Joe García DPM Work Phone: [facility] 02-04-2025 10:08-040 Body weight 104.33 kg Joe García DPM Work Phone: [facility] 02-04-2025 10:08-0400 Respiratory rate 16 /min Joe García DPM Work Phone: [facility] 01-06-2025 13:22-0500 Body height 182.9 cm Marcus Reicnos MD Work Phone: [facility] 01-06-2025 13:22-0500 Body mass index (BMI) [Ratio] 30.38 kg/m2 Marcus Recinos MD Work Phone: [facility] 01-06-2025 13:22-0500 Body weight 101.61 kg Marcus Recinos MD Work Phone: [facility] 01-06-2025 13:22-0500 Diastolic blood pressure 60 mm[Hg] Marcus Recinos MD Work Phone: [facility] 01-06-2025 13:22-0500 Heart rate 55 /min Marcus Recinos MD Work Phone: [facility] 01-06-2025 13:22-0500 Systolic blood pressure 120 mm[Hg] Marcus Recinos MD Work Phone: [facility] 11-26-2024 10:35-0500 Body height 182.9 cm Joe García DPM Work Phone: [facility] 11-26-2024 10:35-0500 Body mass index (BMI) [Ratio] 31.19 kg/m2 Joe García DPM Work Phone: [facility] 11-26-2024 10:35-0500 Body weight 104.33 kg Joe García DPM Work Phone: [facility] 11-26-2024 10:35-0500 Respiratory rate 18 /min Joe García DPM Work Phone: [facility] 12-04-2023 09:03-0500 Body height 182.9 cm Marcus Recinos MD Work Phone: [facility] 12-04-2023 09:03-0500 Body mass index (BMI) [Ratio] 31.46 kg/m2 Marcus Recinos MD Work Phone: [facility] 12-04-2023 09:03-0500 Body weight 105.23 kg Marcus Recinos MD Work Phone: [facility] 12-04-2023 09:03-0500 Diastolic blood pressure 72 mm[Hg] Marcus Recinos MD Work Phone: [facility] 12-04-2023 09:03-0500 Heart rate 61 /min Marcus Recinos MD Work Phone: [facility] 12-04-2023 09:03-0500 Systolic blood pressure 118 mm[Hg] Marcus Recinos MD Work Phone: [facility] 02-08-2023 10:42-0400 Body height 182.88 cm Tirso M Hoy Work Phone: [facility] 250 DO Work Phone: 02-08-2023 10:42-0400 Body mass index (BMI) [Ratio] 30.65 kg/m2 Tirso M Hoy Work Phone: M[facility]ed with [facility] 250 DO Work Phone: 02-08-2023 10:42-0400 Body surface area Derived from formula 2.24 m2 Tirso M Hoy Work Phone: M[facility]ed [facility] 250 DO Work Phone: 02-08-2023 10:42-0400 Body weight 102.51 kg Tirso M Hoy Work Phone: M[facility]ed with [facility] 250 DO Work Phone: 02-08-2023 10:42-0400 Diastolic blood pressure 83 mm[Hg] Tirso M Hoy Work Phone: Merged with [facility] 250 DO Work Phone: 02-08-2023 10:42-0400 Heart rate 54 /min Tirso M Hoy Work Phone: Merged with [facility] 250 DO Work Phone: 02-08-2023 10:42-0400 Systolic blood pressure 128 mm[Hg] Tirso M Hoy Work Phone: Merged with [facility] 250 DO Work Phone: 11-08-2022 11:01-0500 Body height 182.88 cm Tirso M Hoy Work Phone: Merged with [facility] 250 DO Work Phone: 11-08-2022 11:01-0500 Body mass index (BMI) [Ratio] 30.92 kg/m2 Tirso M Hoy Work Phone: Merged with [facility] 250 DO Work Phone: 11-08-2022 11:01-0500 Body surface area Derived from formula 2.25 m2 Tirso M Hoy Work Phone: Merged [facility] 250 DO Work Phone: 11-08-2022 11:01-0500 Body weight 103.42 kg Tirso M Hoy Work Phone: M[facility]ed [facility] 250 DO Work Phone: 11-08-2022 11:01-0500 Diastolic blood pressure 72 mm[Hg] Tirso M Hoy Work Phone: Merged with [facility] 250 DO Work Phone: 11-08-2022 11:01-0500 Heart rate 49 /min Tirso M Hoy Work Phone: Merged [facility] 250 DO Work Phone: 11-08-2022 11:01-0500 Systolic blood pressure 110 mm[Hg] Tirso M Hoy Work Phone: Merged with [facility] 250 DO Work Phone: 04-24-2022 14:21-0400 Body height 182.88 cm Tirso M Hoy Work Phone: Merged with [facility] 250 DO Work Phone: 04-24-2022 14:21-0400 Body mass index (BMI) [Ratio] 30.38 kg/m2 Tirso Rivera Hoy Work Phone: Merged with [facility] 250 DO Work Phone: 04-24-2022 14:21-0400 Body surface area Derived from formula 2.24 m2 Tirso Rivera Hoy Work Phone: Merged with [facility] 250 DO Work Phone: 04-24-2022 14:21-0400 Body weight 101.61 kg Tirso Rivera Hoy Work Phone: M[facility]ed [facility] 250 DO Work Phone: 04-24-2022 14:21-0400 Diastolic blood pressure 80 mm[Hg] Tirso Rivera Hoy Work Phone: Merged with [facility] 250 DO Work Phone: 04-24-2022 14:21-0400 Heart rate 51 /min Tirso Rivera Hoy Work Phone: Merged with [facility] 250 DO Work Phone: 04-24-2022 14:21-0400 Systolic blood pressure 118 mm[Hg] Tirso Rivera Hoy Work Phone: Merged with [facility] 250 DO Work Phone: 04-17-2022 12:00-0400 Body temperature 97.34 [degF] Sarath Hines [facility] 04-17-2022 12:00-0400 Diastolic blood pressure 68 mm[Hg] Sarath Hines [facility] 04-17-2022 12:00-0400 Heart rate 50 /min Sarath Hines [facility] 04-17-2022 12:00-0400 SaO2% (BldA) [Mass fraction] 96 % Sarath Crumkarener [facility] 04-17-2022 12:00-0400 Systolic blood pressure 100 mm[Hg] Sarath Crumhler [facility] 04-17-2022 11:36-0400 Blood Pressure Location Sarath Crumkarener [facility] 04-17-2022 11:36-0400 BP/Pulse Patient Position Sarath Zakarener [facility] 04-17-2022 11:36-0400 Diastolic blood pressure 75 mm[Hg] Sarath Zahler [facility] 04-17-2022 11:36-0400 Heart rate 47 /min Sarath Crumhler [facility] 04-17-2022 11:36-0400 Respiratory rate 18 /min Sarath Crumhler [facility] 04-17-2022 11:36-0400 SaO2% (BldA) [Mass fraction] 94 % Sarath Zahler [facility] 04-17-2022 11:36-0400 Systolic blood pressure 109 mm[Hg] Sarath Zahler [facility] 04-17-2022 11:20-0400 Blood Pressure Location Sarath Crumkarener [facility] 04-17-2022 11:20-0400 BP/Pulse Patient Position Sarath Zahler [facility] 04-17-2022 11:20-0400 Diastolic blood pressure 82 mm[Hg] Sarathjose e Crumhler [facility] 04-17-2022 11:20-0400 Heart rate 47 /min Sarath Crumkarentad [facility] 04-17-2022 11:20-0400 Respiratory rate 18 /min Sarath Crumkarentad [facility] 04-17-2022 11:20-0400 SaO2% (BldA) [Mass fraction] 94 % Sarath Crumkarentad [facility] 04-17-2022 11:20-0400 Systolic blood pressure 110 mm[Hg] Sarath Zakarentad [facility] 04-17-2022 09:32-0400 Blood Pressure Location Sarath Flora [facility] 04-17-2022 09:32-0400 BP/Pulse Patient Position Sarath Crumjill [facility] 04-17-2022 09:32-0400 Mean blood pressure 76 mm[Hg] Sarath Flora [facility] 04-17-2022 09:31-0400 Body temperature 98.6 [degF] Sarath Crumjill [facility] 04-17-2022 09:31-0400 Mean blood pressure 79 mm[Hg] Sarath Flora [facility] 04-17-2022 09:31-0400 Respiratory rate 20 /min Sarath Flora [facility] 03-27-2022 09:00-0400 Inhaled oxygen flow rate 2 L/min MD Tirso Frausto Work Phone: [facility] 02-27-2022 12:16-0400 Body height 182.88 cm Tirso M Hoy Work Phone: [facility] 250 DO Work Phone: 02-27-2022 12:16-0400 Body mass index (BMI) [Ratio] 30.65 kg/m2 Tirso Miguel Hoy Work Phone: [facility] 250 DO Work Phone: 02-27-2022 12:16-0400 Body surface area Derived from formula 2.24 m2 Tirso Miguel Hoy Work Phone: [facility] 250 DO Work Phone: 02-27-2022 12:16-0400 Body weight 102.51 kg Tirso Miguel Hoy Work Phone: [facility] 250 DO Work Phone: 02-27-2022 12:16-0400 Diastolic blood pressure 80 mm[Hg] Tirso Miguel Hoy Work Phone: [facility] 250 DO Work Phone: 02-27-2022 12:16-0400 Heart rate 79 /min Tirso Miguel Hoy Work Phone: [facility] 250 DO Work Phone: 02-27-2022 12:16-0400 Systolic blood pressure 110 mm[Hg] Tirso Miguel Hoy Work Phone: [facility] 250 DO Work Phone: 02-13-2022 13:01-0400 Body height 182.88 cm Tirso Miguel Hoy Work Phone: [facility] DO Work Phone: 02-13-2022 13:01-0400 Body mass index (BMI) [Ratio] 30.11 kg/m2 Tirso Miguel Hoy Work Phone: [facility] 250 DO Work Phone: 02-13-2022 13:01-0400 Body surface area Derived from formula 2.23 m2 Tirso Rivera Hoy Work Phone: [facility] 250 DO Work Phone: 02-13-2022 13:01-0400 Body weight 100.7 kg Tirso Rivera Hoy Work Phone: [facility] DO Work Phone: 02-13-2022 13:01-0400 Diastolic blood pressure 72 mm[Hg] Tirso Rivera Hoy Work Phone: [facility] 250 DO Work Phone: 02-13-2022 13:01-0400 Heart rate 104 /min Tirso Rivera Hoy Work Phone: [facility] DO Work Phone: 02-13-2022 13:01-0400 Systolic blood pressure 104 mm[Hg] Tirso Gamezy Work Phone: [facility] 250 DO Work Phone: 01-23-2022 08:00-0400 Body temperature 97.8 [degF] MD Tirso Frausto Work Phone: [facility] 01-23-2022 08:00-0400 Diastolic blood pressure 64 mm[Hg] MD Tirso Frausto Work Phone: [facility] 01-23-2022 08:00-0400 Heart rate 73 /min MD Tirso Frausto Work Phone: [facility] 01-23-2022 08:00-0400 Respiratory rate 18 /min MD Tirso Frausto Work Phone: [facility] 01-23-2022 08:00-0400 SaO2% (BldA) [Mass fraction] 93 % MD Tirso Frausto Work Phone: [facility] 01-23-2022 08:00-0400 Systolic blood pressure 100 mm[Hg] MD Tirso Frausto Work Phone: [facility] 01-23-2022 05:57-0400 Body weight 93.1 kg MD Tirso Frausto Work Phone: [facility] 01-22-2022 08:40-0400 Inhaled oxygen flow rate 2 L/min MD Tirso Frausto Work Phone: [facility] 01-20-2022 16:12-0400 55 1 Tirso Frausto Work Phone: [facility] 250 DO Work Phone: Comment on above: [id number] 01-20-2022 02:09-0400 Body height 182.88 cm MD Tirso Frausto Work Phone: [facility] 01-20-2022 02:09-0400 Body mass index (BMI) [Ratio] 29.9 kg/m2 MD Tirso Frausto Work Phone: [facility] Encounters Encounter Date Encounter Type Care [...] underlying condition with diabetic polyneuropathy, unspecified whether long term care social worker insulin use ([facility]) (Primary Dx); Pain due to onychomycosis of toenails of both feet Start: 02-04-2025 End: 02-04-2025 ambulatory JOE GARCÍA Not Available Start: 01-06-2025 End: 01-06-2025 Office outpatient visit 25 minutes Marcus Recinos MD Work Phone: [facility] Comment on above: Atypical atrial flut ter (Multi) (Primary Dx); Essential hypertension; High risk medication use; Mixed hyperlipidemia; Chronic obstructive pulmonary disease, unspecified COPD type (Multi); BMI 30.0-30.9,adult; Former smoker; Obesity, Class I, BMI 30-34.9; Hypothyroidism, unspecified type Start: 01-06-2025 End: 01-06-2025 ambulatory [facility] Start: 11-26-2024 End: 11-26-2024 Bamboo flowsheet Joe García DPM Work Phone: [facility] Start: 11-26-2024 End: 11-26-2024 Bamboo flowsheet Joe García DPM Work Phone: [facility] Start: 11-26-2024 End: 11-26-2024 Office outpatient new 30 minutes Joe García DPM Work Phone: [facility] Comment on above: Contusion of right f oot, initial encounter (Primary Dx); Pain due to onychomycosis of toenails of both feet; Diabetes mellitus due to underlying condition with diabetic polyneuropathy, unspecified whether shelter insulin use (CMS/HCC) Start: 11-26-2024 End: 11-26-2024 ambulatory JOE GARCÍA Not Available Start: 06-03-2024 End: 06-03-2024 ambulatory [facility] Start: 12-04-2023 End: 12-04-2023 Office outpatient visit 25 minutes Marcus Recinos MD Work Phone: [facility] Comment on above: Atrial flutter, unsp ecified type (CMS/HCC) (Primary Dx); Benign essential hypertension; High risk medication use; Hyperlipidemia, unspecified hyperlipidemia type; Pulmonary emphysema, unspecified emphysema type (CMS/HCC); Coronary artery disease involving northway coronary artery of northway heart without angina pectoris; Obesity, Class I, BMI 30-34.9 Start: 05-06-2023 Patient encounter procedure Tirso Frausto Work Phone: [facility] 250 DO Work Phone: Start: 03-08-2023 End: 03-09-[address] TIRSO FRAUSTO . Facility:[facility]1 Start: 02-08-2023 Patient encounter procedure Tirso Frausto Work Phone: [facility] 250 DO Work Phone: Start: 02-08-[address] Darwin Predomo Facility: Start: 02-05-2023 AUDIT Tirso Frausto Work Phone: [facility] 250 DO Work Phone: Start: 02-01-2023 End: 02-01-2023 ambulatory NOELLE VALERA Facility:[facility]1 Start: 01-22-2023 End: 01-22-2023 ambulatory Jina Rios Other [facility] Other Start: 01-22-2023 Telephone encounter Jina Rios [facility] Start: 01-21-2023 Telephone encounter Tirso Frausto Work Phone: [facility] 250 DO Work Phone: Start: 01-10-2023 End: 01-11-[address] MARCUS RECINOS Facility: Start: 01-01-2023 ([facility] R A/c) [facility] Re peat A/C [facility] Start: 01-01-2023 Telephone encounter Jina bonilla [facility] Start: 01-01-2023 End: 01-02-2023 ambulatory Marcus Recinos [facility] Other Start: 12-20-2022 Patient encounter procedure Tirso Frausto Work Phone: [facility] 250 DO Work Phone: Start: 12-10-2022 ([facility] R A/c) [facility] Re peat A/C [facility] Start: 12-10-2022 End: 12-10-2022 ambulatory Victoria Mujica Other [facility] Other Start: 11-26-2022 ([facility] R A/c) [facility] Re peat A/C Victoria Mujica [facility] Start: 11-26-2022 End: 11-26-2022 ambulatory Victoria Mujica Other [facility] Other Start: 11-15-2022 ([facility] R A/c) [facility] Re peat A/C Carlos A Salazar [facility] Start: 11-15-2022 End: 11-15-2022 ambulatory Carlos A Salazar Other [facility] Other Start: 11-14-2022 End: 11-15-[address] MARCUS RECINOS Facility:[facility]1 Start: 11-08-2022 Office outpatient vi sit 25 minutes Tirso Frausto Work Phone: [facility] 250 DO Work Phone: Start: 11-08-2022 ambulatory Marcus Recinos Facility : Start: 11-02-2022 End: 11-03-[address] TIRSO FRAUSTO . Facility:[facility]1 Start: 11-01-2022 End: 11-01-2022 ambulatory Jina Rios Other [facility] Other Start: 11-01-2022 Telephone encounter Jina Rios [facility] Start: 10-23-2022 End: 10-24-[address] MARCUS RECINOS Facility:[facility]1 Start: 10-22-2022 End: 10-23-[address] LACEY LISTED REQUEST Facility:[facility]1 Start: 10-15-2022 Telephone encounter Tirso Frausto Work Phone: [facility] 250 DO Work Phone: Start: 10-10-2022 Patient encounter procedure Tirso Frausto Work Phone: [facility] 250 DO Work Phone: Start: 10-09-2022 End: 10-10-[address] TIRSO FRAUSTO . Facility: Start: 08-10-2022 Chart Update Tirso Frausto Work Phone: [facility] 250 DO Work Phone: Start: 07-30-2022 End: 07-30-2022 ambulatory Velazquez Recinos Facility:[facility] Start: 07-06-2022 Patient encounter procedure Tirso Frausto Work Phone: [facility] 250 DO Work Phone: Start: 05-15-2022 Rx Renewal Tirso Rivera Francosalome Work Phone: [facility] 250 DO Work Phone: Start: 04-26-2022 Chart Update Tirso Frausto Work Phone: [facility] 250 DO Work Phone: Start: 04-26-2022 End: 04-26-2022 ambulatory Velazquez [facility] Facility:[facility] Start: 04-26-2022 End: 04-26-2022 Patient encounter procedure MD Tirso Frausto Work Phone: [facility] Start: 04-24-2022 Office outpatient vi sit 25 minutes Tirsoloreta Frausto Work Phone: [facility] 250 DO Work Phone: Start: 04-24-2022 ambulatory [facility] Facility : Start: 04-19-2022 Rx Renewal Tirsoloreta Frausto Work Phone: [facility] 600 DO Work Phone: Start: 04-17-2022 End: 04-17-2022 Admission to same day surgery center Sarath Hines [facility] Start: 03-28-2022 Chart Update Tirso Miguel Lisbet Work Phone: [facility] 250 DO Work Phone: Start: 03-27-[address] Tirso Frausto Facility:90 Start: 03-27-2022 SURGNON, Provider: Marcus Recinos, Status: Pen, Time: 9:00 AM Tirso Frausto Work Phone: [facility] 250 DO Work Phone: Start: 03-27-2022 End: 03-27-2022 Admission to same day surgery center MD Tirso Frausto Work Phone: [facility] Start: 03-26-2022 Chart Update Tirso Frausto Work Phone: [facility] 250 DO Work Phone: Start: 03-23-2022 End: 03-23-2022 Patient encounter procedure MD Tirso Frausto Work Phone: [id number] Start: 03-15-2022 End: 03-15-[address] TIRSO FRAUSTO . Facility:[facility]1 Start: 03-08-2022 Patient encounter procedure Tirso M Francosalome Work Phone: [facility] 250 DO Work Phone: Start: 03-01-2022 Telephone encounter Tirso Miguel Francosalome Work Phone: [facility] 250 DO Work Phone: Start: 02-27-2022 ambulatory Marcus Recinos Facility : Start: 02-27-2022 Patient encounter procedure Tirso Miguel Lisbet Work Phone: [facility] 250 DO Work Phone: Start: 02-13-2022 Office outpatient vi sit 25 minutes Tirso Frausto Work Phone: [facility] 250 DO Work Phone: Start: 02-13-2022 ambulatory Marcus Recinos Facility : Start: 01-25-2022 End: 01-25-2022 Patient encounter procedure MD Tirso Frausto Work Phone: [facility] [address] Start: 01-20-2022 End: 01-23-2022 Evaluation and management of inpatient MD Tirso Frausto Work Phone: [facility] Bee Med Surg Procedures Date Procedure Procedure Detail Performing Clinician Start: 01-06-2025 Ecg routine ecg w/le ast 12 lds w/i&r Marcus Recinos MD Work Phone: Start: 12-04-2023 Ecg routine ecg w/le ast 12 lds w/i&r Marcus Recinos MD Work Phone: Start: 10-09-[address] ABHIJIT WONG REQUEST Comment on above: Performed By: #### O BSCRN #### [facility] [address] [place] [address] Dr. Igor Hayes Start: 04-26-2022 Plain chest [...] Hines Comment on above: nasal hemangioma Appendectomy iTrso Frausto Work Phone: Appendectomy Sarath Hines Cardiac catheterization Jim Frausto Work Phone: Cardioversion Tirso Frausto Work Phone: Cataract surgery Tirso Tuttle osalome Work Phone: Hernia repair Tirso Frausto Work Phone: Primary repair of um bilical hernia Sarath Hines Repair of ventral hernia Pablito sunil Hines Plan of Treatment Date Care Activity Detail Author Start: 04-12-2031 Screening for malignant neoplasm of colon [facility] Start: 12-09-2025 End: 01-06-2026 Complete Pulmonary Function Test (Spirometry/DLCO/Lung Volumes) Complete Pulmonary Function Test (Spirometry/DLCO/Lung Volumes) PFT Routine Atypical atrial flutter (Multi) High risk medication use Expected: 12/09/2025 (Approximate), Expires: 01/06/2026 [facility] Work Phone: Comment on above: Expected: 12/09/2025 (Approximate), Expi res: 01/06/2026 Start: 12-09-2025 End: 01-06-2026 XR Chest 2 Views XR chest 2 views Imaging Routine Atypical atrial flutter (Multi) High risk medication use Expected: 12/09/2025 (Approximate), Expires: 01/06/2026 [facility] Work Phone: Comment on above: Expected: 12/09/2025 (Approximate), Expi res: 01/06/2026 Start: 08-25-2025 End: 08-25-2025 Patient encounter procedure 08/25/2025 11:10 AM EDT Office Visit [facility] [address] [facility] [address] [place] [address] Marcus Recinos MD [address] [facility] [address] [place] [address] [facility] Start: 07-09-2025 End: 01-06-2026 Aspartate aminotransferase [Enzymatic activity/volume] in Serum or Plasma by With P-5'-P Aspartate Aminotransferase Lab Routine Atypical atrial flutter (Multi) High risk medication use Expected: 07/09/2025 (Approximate), Expires: 01/06/2026 [facility] Service Area Work Phone: Comment on above: Expected: 07/09/2025 (Approximate), Expi res: 01/06/2026 Start: 07-09-2025 End: 01-06-2026 Basic metabolic 2000 panel - Serum or Plasma Basic Metabolic Panel Lab Routine Atypical atrial flutter (Multi) High risk medication use Expected: 07/09/2025 (Approximate), Expires: 01/06/2026 [facility] Work Phone: Comment on above: Expected: 07/09/2025 (Approximate), Expi res: 01/06/2026 Start: 07-09-2025 End: 01-06-2026 Thyrotropin [Units/volume] in Serum or Plasma Thyroid Stimulating Hormone Lab Routine Atypical atrial flutter (Multi) High risk medication use Expected: 07/09/2025 (Approximate), Expires: 01/06/2026 [facility] Work Phone: Comment on above: Expected: 07/09/2025 (Approximate), Expi res: 01/06/2026 Start: 03-18-2025 End: 03-18-2025 Patient encounter procedure 03/18/2025 8:45 AM EDT Appointment [facility] [address] [facility] [address] [place] [address] [facility] Start: 02-04-2025 End: 02-04-2025 Patient encounter procedure [facility] Comment on above: Diabetes mellitus due to underlying cond ition with diabetic polyneuropathy, unspecified whether long term care social worker insulin use ([facility]/HCC) (Primary Dx); Pain due to onychomycosis of toenails of both feet Start: 01-20-2025 Medicare Annual Wellness Visit Medicare Annual Wellness Visit (AWV) [facility] Start: 01-06-2025 End: 01-06-2027 US Abdominal Aorta for screening Vascular US Abdominal Aorta Aneurysm AAA Screening Vascular Ultrasound Routine Essential hypertension Atypical atrial flutter (Multi) Mixed hyperlipidemia Former smoker Expected: 01/06/2025 (Approximate), Expires: 01/06/2027 [facility] Work Phone: Comment on above: Expected: 01/06/2025 (Approximate), Expi res: 01/06/2027 Start: 11-26-2024 End: 11-26-2024 Patient encounter procedure 11/26/2024 10:30 AM EST Office Visit [facility] [address] [facility] [address] [place] [address] Joe García DPM [address] [facility] [address] [place] [address] Arrived [facility] Comment on above: Arrived Start: 07-05-2024 COVID-19 Vaccine ( season) COVID-19 Vaccine ( season) [facility] Start: 07-05-2024 Influenza vaccination Influenza Vaccine (#1) [facility] Start: 06-03-2024 End: 06-03-2024 Patient encounter procedure 06/03/2024 10:00 AM EDT Office Visit [facility] [address] [facility] [address] [place] [address] Marcus Recinos MD [address] [facility] [address] [place] [address] [facility] Start: 07-05-2023 Influenza vaccination Influenza Vaccine (#1) [facility] Start: 05-29-2023 FUV, Provider: Marcus Recinos, Status: Pen, Time: 9:30 AM FUV, Provider: Marcus Recinos, Status: Pen, Time: 9:30 AM [facility] 250 DO Work Phone: Start: 05-14-2023 FUV, Provider: Darwin Perdomo, Status: Pen, Time: 9:30 AM FUV, Provider: Darwin Perdomo, Status: Pen, Time: 9:30 AM -[facility] 250 DO Work Phone: Start: 11-08-2022 FUV, Provider: Marcus Recinos, Status: Pen, Time: 10:40 AM FUV, Provider: Marcus Recinos, Status: Pen, Time: 10:40 AM -[facility] 250 DO Work Phone: Start: 04-24-2022 FUV, Provider: Marcus Recinos, Status: Pen, Time: 2:10 PM FUV, Provider: Marcus Recinos, Status: Pen, Time: 2:10 PM -[facility] 250 DO Work Phone: Start: 03-27-2022 SURGNONUH, Provider: Marcus Recinos, Status: Pen, Time: 9:00 AM SURGNONUH, Provider: Marcus Recinos, Status: Pen, Time: 9:00 AM -[facility] 250 DO Work Phone: Start: 02-27-2022 EKG, Provider: [facility] TECH 1,[id number], Status: Pen, Time: 10:00 AM EKG, Provider: [facility] TECH 1,[id number], Status: Pen, Time: 10:00 AM [facility] 250 DO Work Phone: Start: 2019 Abdominal aortic aneurysm screening Abdominal Aortic Aneurysm (AAA) Screening [facility] Start: 2014 RSV High Risk: (Elderly (60+) or Population) (1 - Risk 60-74 years 1-dose series) RSV High Risk: (Elderly (60+) or Population) (1 - Risk 60-74 years 1-dose series) [facility] Start: 2004 Zoster Vaccines (1 of 2) Zoster Vaccines (1 of 2) [facility] Start: 1976 DTaP/Tdap/Td Vaccines (1 - Tdap) DTaP/Tdap/Td Vaccines (1 - Tdap) [facility] Start: 1973 Pneumococcal vaccination Pneumococcal Vaccine (1 of 2 - PCV) [facility] Start: 1972 Diabetes mellitus screening Diabetes Screening [facility] Start: 1972 Hepatitis C screening Hepatitis C Screening [facility] Start: 1960 Pneumococcal Vaccine: 65+ Years (1 - PCV) Pneumococcal Vaccine: 65+ Years (1 - PCV) [facility] Start: 04-30-1955 COVID-19 Vaccine (#1) COVID-19 Vaccine (#1) [facility] Start: 1954 Lipid panel Lipid Panel [facility] Start: 1954 Medicare Annual Wellness Visit Medicare Annual Wellness Visit (AWV) [facility] Start: 1954 Screening for malignant neoplasm of colon [facility] Start: 1954 Thyroid stimulating hormone measurement TSH Level [facility] Patient Education Cardiomyopathy (DC) Digoxin Enalapril Furosemide Metoprolol Spironolactone Atrial Flutter (DC) [facility] Work Phone: Patient referral [facility] Work Phone: Immunizations Immunization Date Immunization Notes Care Provider Fa cility NEGATED: Highlighted row has not occurred!01-05-2021 influenza virus vaccine, unspecified formulation Sarath Hines [facility] Payers Date Payer Category Payer Private Health Insurance [facility] [id number] 2022 Self-pay [id number] 2019 Medicare [id number] 2019 Medicare supplementa l policy (as second payer) [employer] [id number] 2019 Private Health Insurance [id number] 1959 Medicare [id number] 1959 Private Health Insurance [facility] [id number] 1954 Unknown [id number] 2.16.840.1.131203.3.579 .2.356 1954 Unknown [id number] 2.16.840.1.058235.3.579 .2.356 1954 Unknown [id number] 2.16.840.1.078365.3.579 .2.356 1954 Unknown [id number] 2.16.840.1.429167.3.579 .2.356 1954 Unknown [id number] 2.16.840.1.542400.3.579 .2.356 1954 Unknown [id number] 2.16.840.1.609489.3.579 .2.356 1954 Unknown [id number] 2.16.840.1.291803.3.579 .2.593 1954 Unknown [id number] 2.16.840.1.674888.3.579 .2.593 1954 Unknown [id number] 2.16.840.1.969022.3.579 .2.593 1954 Unknown [id number] 2.16.840.1.466639.3.579 .2.593 1954 Unknown [id number] 2.16.840.1.528320.3.579 .2.593 1954 Unknown [id number] 2.16.840.1.840432.3.579 .2.593 1954 Unknown [id number] 2.16.840.1.647401.3.579 .2.593 1954 Unknown [id number] 2.16.840.1.739428.3.579 .2.593 1954 Unknown [id number] 2.16.840.1.672513.3.579 .2.593 1954 Unknown [id number] 2.16.840.1.092203.3.579 .2.593 1954 Unknown [id number] 2.16.840.1.782618.3.579 .2.1244 1954 Unknown [id number] 2.16.840.1.241926.3.579 .2.1244 1954 Unknown [id number] 2.16.840.1.173010.3.579 .2.1259 1954 Unknown [id number] 2.16.840.1.656839.3.579 .2.1259 Unknown [id number] Unknown Unknown [id number] 2.16.840.1.318337.3.579 .2.531 Unknown [id number] 2.16.840.1.413796.3.579 .2.531 Unknown [id number] 2.16.840.1.560826.3.579 .2.531 Social History Date Type Detail Facility Start: 01-20-2022 End: 06-03-2024 Tobacco smoking status NHIS Ex-smoker (finding) [facility] Start: 12-04-2023 End: 11-26-2024 History of tobacco use [facility] Work Phone: Start: 1955 Sex Assigned At Male [place] [facility] Start: 12-04-2023 End: 11-26-2024 No illicit drug use No illicit drug use Merged with [facility] DO Work Phone: Comment on above: DRINKS 6 BEERS A DAY ; 2 CUPS OF COFFEE RACIEL LY; QUIT IN 08/2021; Start: 04-20-2021 Tobacco smoking status Heavy tobacco smoker (finding) [facility] End: 11-04-2020 Tobacco smoking status Smoker (finding) [facility] Tobacco smoking status Never [facility] End: 11-04-2020 History of tobacco use Cigarette Smoker [facility] Work Phone: Start: 12-04-2023 End: 11-26-2024 Tobacco use and exposure Smokeless tobacco non-user [facility] Work Phone: Start: 12-04-2023 End: 02-04-2025 Alcohol intake Current drinker of alcohol (finding) [facility] Work Phone: Start: 1955 Sex Assigned At Not on file U [facility] Work Phone: Start: 11-24-2023 End: 01-06-2025 Exposure to SARS-CoV-2 (event) Not sure [facility] Start: 11-26-2024 Tobacco smoking status NHIS Never smoked tobacco [facility] Tobacco smoking status NHIS Tobacco smoking consumption unknown [facility] Start: 06-03-2024 Alcohol Comment daily [facility] Work Phone: Medical Equipment Procedure Code Equipment Code Equipment Origin al Text Equipment Identifier Dates CATARACT EXTRACT ION W/ INTRAOCULAR LENS Sarath Hines DO 04/17/22 Non Biological Eye L {[id number] [facility] Start: 04-17-2022 Goals Date Patient Goal Desired Activity /State Functional Status Date Assessment Result Facility 04-17-2022 Functional Status N/A Narayanan - [facility] 01-23-2022 Functional status Patient at [facility] Work Phone: Mental Status Date Assessment Result Facility 01-23-2022 Cognitive function Cognitive Sta tus Patient at [facility] Work Phone: Clinical Notes 01-20-2022 to 01-06-2025 [...] hours if needed., Disp: , Rfl: vitamins A,C,U-tmut-lrgspe (PreserVision AREDS) 2,148 mcg-113 mg-45 mg-17.4mg tablet, [...] discussion and plan. documented in this encounter [facility] Work Phone: 01-06-2025 Instructions Virginia Crawford LPN [...] be sent through Care Everywhere.Heart Healthy Diet (Faroese)documented in this encounter [facility] Work Phone: 11-26-2024 History of Present illness [...] Partner Violence: Unknown (12/26/2023) Received from [facility] Fear of Current or [...] and positive PT pedal pulses NEURO: 5.07 Markesan Vasile monofilament test intact to digits and [...] underlying condition with diabetic polyneuropathy, unspecified whether shelter insulin use ([facility] PLAN Discussed proper foot care with patient [...] Joe García DPM documented in this encounter [facility] 12-04-2023 History of Present illness Narrative [...] hours if needed., Disp: , Rfl: vitamins A,C,V-okhe-hzgubj (PreserVision AREDS) 2,148 mcg-113 mg-45 mg-17.4mg tablet, [...] type (CMS/HCC) 6. Coronary artery disease involving northway coronary artery of northway heart without angina pectoris 7. Obesity, Class I, BMI 30-34.9 documented in this encounter [facility] Work Phone: 12-04-2023 Instructions Leticia Mi LPN [...] January as scheduled documented in this encounter [facility] Work Phone: 01-01-2023 Evaluation note Encounter Date [...] Olga Phipps PharmD, Funmilayo Velazquez PharmD Candidate [employer] Other 02-06-2023 Evaluation note* Encounter Date Diagnosis [...] in 3 weeks. Seen by Ana Mujica [facility], Funmilayo Velazquez PharmD Candidate [employer] Other 01-23-2023 Evaluation note* Encounter Date Diagnosis [...] 2 weeks. Seen by Ana Mujica RPh [employer] Other 01-12-2023 Evaluation note* Encounter Date Diagnosis [...] week. Seen by Carlos A Salazar PharmD [place] [employer] Other 06-01-2022 Hospital Discharge instructions Follow Up Care 04/04/2022 10:45:36 With:JOVANNA EDMONDS Address: [address] [place] [address]- ( ) [phone] Business (1) When:1 to 2 days [facility]05-24-2022 [facility] Discharge summary Author Jin Berkowitz [facility] January 23, 2022 12:48pm Note Date/Time January 23, 2022 12: 48pm [facility] [address] [place] [address] Discharge Summary Signed Patient: Remedios Magaña MR#: [id number] : 1955 Acct:[id number] Age/Sex: 66 / M Adm Date: 2 Loc: Room: [address] [place] [address]: Jin Berkowitz MD Copies to: [...] reformed smoker was recommended to go to [place] ED after he was found to have [...] atrial flutter and was recommended togo to [place] [facility].? EKG done there showed changes suspicious for ACS, ED physician spoke to cardiology here and was recommended to transfer here for further evaluation and management.? The patient was transferred to [facility]. Cardiology was consulted. [...] Home Additional Instructions: DISCHARGE INSTRUCTIONS FOR CARDIAC MANAGER ENT PHONE NUMBER OF YOUR PHYSICIAN: [phone] PROCEDURE: Heart Cath The following instructions have [...] cold, numb, blue or white, call the planning rn immediately. 4. ACTIVITY: You are advised to [...] bottle, follow the instructions on the bottle. [facility] is not responsible for incorrect prescription [...] Patient Ordered By: Ama Morrison Follow Up: [facility] [Outside] Marcus Recinos MD [Active Staff] - 02/13/22 12:40 pm Tirso Frausto MD [Primary Care Provider] - (You have been scheduled for a follow up appointment for the following date and time, please call to rescheduleif needed.) Documented By: Jin Berkowitz MD 01/23/22 1244 Signed By: <Electronically signed by Jin Berkowitz MD> 01/23/[address] [facility] Work Phone: 1(590) 551-979403-22-2022 Progress note Author Brandt Petit [facility] January 23, 2022 8:50am Note Date/Time January 23, 2022 8:5 0am [facility] [address] [place] [address] Cardiology Progress Note Signed Patient: Remedios Magaña MR#: [id number] : 1955 Acct:[id number] Age/Sex: 66 / M Adm Date: 2 Loc: Room: [address] [place] [address] Type : ADM INOo Attending Dr: Jin [...] for elective cardioversion in 4 weeks for sikhism of normal sinus mechanism (3) Diabetes mellitus: [...] signed by Brandt Petit MD> 01/23/[address] [facility] Work Phone: 1(988) 895-739203-22-2022 Hospital Discharge instructions Additional Instructions DISCHARGE INSTRUCTIONS FOR CARDIAC MANAGER ENT PHONE NUMBER OF YOUR PHYSICIAN: [phone] PROCEDURE: Heart Cath The following instructions have [...] cold, numb, blue or white, call the planning rn immediately. 4. ACTIVITY: You are advised to [...] bottle, follow the instructions on the bottle. [facility] is not responsible for incorrect prescription information provided by the patient during their visit. Do not stop your medications without consulting your health care provider. Please take the list with you to your next doctor's appointment.[facility] Work Phone: 1(273) 432-273103-21-2022 Progress note Author Jin Berkowitz [facility] January 22, 2022 1:17pm Note Date/Time January 22, 2022 1:1 2pm [facility] [address] [place] [address] Hospitalist Progress Note Signed Patient: Remedios Magaña MR#: [id number] : 1955 Acct:[id number] Age/Sex: 66 / M Adm Date: 2 Loc: Room: [address] [place] [address] Type : ADM INOo Attending Dr: Jin [...] <Electronically signed by Jin Berkowitz MD> 01/22/[address] [facility] Work Phone: 1(456) 239-789103-20-2022 Progress note Author Ama Morrison [facility] January 21, 2022 5:02pm Note Date/Time January 21, 2022 3:1 9pm [facility] [address] [place] [address] Hospitalist Progress Note Signed with Addenda Patient: Remedios Magaña MR#: [id number] : 1955 Acct:[id number] Age/Sex: 66 / M Adm Date: 2 Loc: Room: [address] [place] [address] Type : ADM INOo Attending Dr: Ama [...] signed by Ama Morrison MD> 01/21/[address] [facility] Work Phone: 1(458) 880-168703-20-2022 Progress note Author Brandt Petit [facility] January 21, 2022 10:42am Note Date/Time January 21, 2022 10: 41am [facility] [address] [place] [address] Cardiology Progress Note Signed Patient: Remedios Mgaaña MR#: [id number] : 1955 Acct:[id number] Age/Sex: 66 / M Adm Date: 2 Loc: Room: [address] [place] [address] Type : ADM INOo Attending Dr: Ama [...] MPV Neut % (Auto) Lymph % (Auto) [place] % (Auto) Eos % (Auto) Baso % (Auto) Neut # (Auto) Lymph # (Auto) [place] # (Auto) Eos # (Auto) Baso # (Auto) Nucleated RBC % (auto) APTT POC Glucose 133 POC Glucose Comment Glu2: cleaned meter Troponin I High Sens 7 Add-On Test Request Cancelled 01/20/22 01/20/22 01/20/22 16:41 17:37 20:51 Corrected WBC Uncorrected WBC Count RBC Hgb Hct MCV MCH MCHC RDW Plt Count MPV Neut % (Auto) Lymph % (Auto) [place] % (Auto) Eos % (Auto) Baso % (Auto) Neut # (Auto) Lymph # (Auto) [place] # (Auto) Eos # (Auto) Baso # [...] % (Auto) 56.3 Lymph % (Auto) 26.4 [place] % (Auto) 13.0 Eos % (Auto) 3.1 Baso % (Auto) 1.2 Neut # (Auto) 2.8 Lymph # (Auto) 1.3 [place] # (Auto) 0.6 Eos # (Auto) 0.2 Baso # (Auto) 0.1 Nucleated RBC % (auto) 0.2 APTT 81.3 H POC Glucose 113 POC Glucose Comment Troponin I High Sens Add-On Test Request 01/21/22 07:15 Corrected WBC Uncorrected WBC Count RBC Hgb Hct MCV MCH MCHC RDW Plt Count MPV Neut % (Auto) Lymph % (Auto) [place] % (Auto) Eos % (Auto) Baso % (Auto) Neut # (Auto) Lymph # (Auto) [place] # (Auto) Eos # (Auto) Baso # [...] signed by Brandt Petit MD> 01/21/[address] [facility] Work Phone: 1(330) 649-735303-19-2022 Consult note Author Brandt Petit [facility] January 20, 2022 5:08pm Note Date/Time January 20, 2022 5:0 8pm [facility] [address] [place] [address] Cardiology Consult Note Signed Patient: Remedios Magaña MR#: [id number] : 1955 Acct:[id number] Age/Sex: 66 / M Adm Date: 2 Loc: Room: [address] [place] [address] Type : ADM INOo Attending Dr: Ama [...] breath with exertion. 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 In the [place] ER, an EKG was checked which again [...] mg-vit E 90 mg-zinc 40 mg-copper 1 su-ldecla-ualvco capsule (PreserVision AREDS-2) 1 tab PO BID [...] x10E3/uL Lymph # (Auto) 1.3 (1.00-4.8) x10E3/uL [place] # (Auto) 0.6 (0.0-0.8) x10E3/uL Eos # [...] patient. Documented By: Brandt Petit MD 01/20/22 9119 Signed By: <Electronically signed by Brandt Petit MD> 01/20/22 1705 [facility] Work Phone: 1(646) 222-116103-19-2022 History and physical note Author Pola Anders [facility] January 20, 2022 6:26am Note Date/Time January 20, 2022 2:4 5am [facility] [address] [place] [address] Hospitalist H&P Signed Patient: Remedios Magaña MR#: [id number] : 1955 Acct:[id number] Age/Sex: 66 / M Adm Date: 2 Loc: Room: [address] [place] [address] Type : ADM IN Attending Dr: Pola Anders MD Copies to: MD Tirso Chew MD~ HPI DATE OF EXAMINATION: 01/20/22 CHIEF COMPLAINT: chest pain HISTORY OF PRESENT ILLNESS: Patient is a 66-year-old gentleman past medical history of diabetes diet- controlled, hyperlipidemia, BPH, reformed smoker was recommended to go to [place] ED after he was found to have [...] atrial flutter and was recommended togo to [place] ED. EKG done there showed changes suspicious [...] noted below or in HPI [facility] Medical History (Updated 01/20/22 @ 02:46 [...] mg-vit E 90 mg-zinc 40 mg-copper 1 di-iohbsz-jlslfv capsule (PreserVision AREDS-2) 1 tab PO BID [...] and is hemodynamically stable Labs reviewed from [place] ED which are essentially normal including TSH and Troponin Obtain lipid panel, A1c, echo Consult cardiology Ordered routine labs Telemetry Fall precautions CIWA protocol Resume heparin drip that has been started at [place] ED DVT prophylaxis CODE STATUS full code. Documented By: Pola Anders MD 01/20/22 0238 Signed By: <Electronically signed by Pola Anders MD> 01/20/[address] [facility] Work Phone: Discharge summary Author Marcus Recinos [facility] March 27, 2022 9:20am Note Date/Time March 27, 2022 9:20a m [facility] [address] [place] [address] Discharge Summary Signed Patient: Remedios Magaña MR#: [id number] : 1955 Acct:[id number] Age/Sex: 66 / M Adm Date: 2 [...] By: Marcus Recinos MD, [facility] 2 0920 Signed By: <Electronically signed by MD HAFSA Recinos> 03/27/[address] [facility] Work Phone: Evaluation + Plan note No data available for this section [facility] Diagnosis Onset Date Resolution Status Atrial flutter acute Cardiomyopathy acute Chronic alcohol use acute Diabetes mellitus acute Hyperlipidemia acute [facility] Work Phone: Evaluation noteNo assessment information available [facility] Work Phone: Evaluation noteNo [employer] Other Evaluation note* Diagnosis Atrial flutter, unspecified type (CMS/HCC)- Primary Benign essential hypertension Essential hypertension, benign High risk medication use Hyperlipidemia, unspecified hyperlipidemia type Pulmonary emphysema, unspecified emphysema type (CMS/HCC) Coronary artery disease involving northway coronary artery of northway heart without angina pectoris Obesity, Class I, BMI 30-34.9 documented in this encounter [facility] Work Phone: Evaluation note* Diagnosis Contusion of right foot, initial encounter- Primary Pain due to onychomycosis of toenails of both feet Diabetes mellitus due to underlying condition with diabetic polyneuropathy, unspecified whether long term care social worker insulin use (CMS/HCC) [facility] Diagnosis Atypical atrial flutter (Multi)- Primary Essential hypertension Unspecified essential hypertension High risk medication use Mixed hyperlipidemia Chronic obstructive pulmonary disease, unspecified COPD type (Multi) BMI 30.0-30.9,adult Former smoker Personal history of tobacco use, presenting hazards to health Obesity, Class I, BMI 30-34.9 Hypothyroidism, unspecified type documented in this encounter [facility] Work Phone: Evaluation note* Diagnosis Diabetes mellitus due to underlying condition with diabetic polyneuropathy, unspecified whether long term care social worker insulin use (CMS/HCC)- Primary Pain due to [...] Partner Violence: Unknown (12/26/2023) Received from [facility] Fear of [...] and positive PT pedal pulses NEURO: 5.07 Markesan Vasile monofilament test intact to digits and forefoot bilaterally 125Hz tuning fork diminished to 1st MPJ bilaterally ORTHO: Positive pain on palpation to toenails of the left 1,2,3,4,5 toes and right 1,2,3,4,5 toes Minimal palpation lateral right foot and area of cuboid region ASSESSMENT 1. Diabetes mellitus due to underlying condition with diabetic polyneuropathy, unspecified whether long term care social worker insulin use ([facility]) 2. Pain due to onychomycosis of toenails [...] gear. Joe García DPM [facility] Work Phone: [facility] Work Phone: [facility] Work Phone: Progress note No data available for this section [facility] Chief Complaint and Reason for Visit [...] Recinos MD for review.Amiodarone Order sent to [facility] for testing due in MARCH* S/P CARDIOVERSION. [...] in the past Amiodarone Order sent to [facility] for testing due in JulyAmiodarone order sent to [facility] for October 2022* REMEDIOS MAGAÑA is [...] more aggressive diet. Amiodarone order sent to [facility] for January 2023* Patient in the [...] test done please contact our office at [phone] and press option #4 so that we may assist you in the problems. * Thank you for your compliance with this testing. * The Staff * [facility] * Please have done July 2023 Family [...] Procedures ECG 12 Lead Marcus Recinos MD [address] [place] [address] 2, [address] [address] Referral ID Status Reason Start Date Expiration Date V [facility] Requested Visits Authorized [id number] Authorized 12/04/2023 12/03/2024 1 1 Specialty Diagnoses / Procedures Referred By Contac t Referred To Contact Cardiology Diagnoses Benign essential hypertension Atrial flutter, unspecified type (CMS/HCC) Procedures Follow Up In Cardiology Marcus Recinos MD [address] [place] [address] 2, [address] [address] Marcus Recinos MD [address] [place] [address] 2, [address] [address] Referral ID Status Reason Start Date Expiration Date V isits Requested Visits Authorized [id number] Authorized 12/04/2023 12/03/2024 1 1 Additional Source [...] MD Attending Provider, Referring Prov ider Active Syruper Relationship Specialty Start Date End Date Tirso Frausto MD [address] [place] [address] PCP - General 11/04/99 Syruper Relationship Specialty Start Date End Date Tirso Frausto MD [address] [place] [address] PCP - General Family Medicine 11/26/24 Syruper Relationship Specialty Start Date End Date Tirso Frausto MD [address] [place] [address] PCP - General 11/04/99 Syruper Relationship Specialty Start Date End Date Tirso Frausto MD [address] [place] [address] PCP - General Family Medicine 11/26/24 Syruper Relationship Specialty Start Date End Date Tirso Frausto MD [address] [place] [address] PCP - General Family Medicine 11/26/24 (unrecognized sect ion and content) No Status Records FoundNo Status Records FoundNo Status Records FoundNo Status Records FoundNo Status Records FoundNo Status Records FoundNo Status Records Found INFORMATION SOURCE (unrecogn ized section and content) DATE CREATED AUTHOR 04/25/2022 [employer] DATE CREATED AUTHOR AUTHOR'S ORGANIZ ATION 02/10/2023 [facility] DATE CREATED AUTHOR AUTHOR'S ORGANIZ ATION 03/15/2023 [facility] DATE CREATED AUTHOR AUTHOR'S ORGANIZ ATION 04/12/2023 [facility] DATE CREATED AUTHOR AUTHOR'S ORGANIZ ATION 02/20/2024 [facility] DATE CREATED AUTHOR AUTHOR'S ORGANIZ ATION 01/08/2025 [facility] DATE CREATED AUTHOR AUTHOR'S ORGANIZ ATION 02/07/2025 [facility] EPIC Goals (unrecognized section and content) Goals may be documented in a n alternate section REASON FOR VISIT (unrecogniz ed section and content) Reason Comments Follow-up 6 months Specialty Diagnoses / Procedures Referred By Contac t Referred To Contact Diagnoses Atrial flutter, unspecified type (CMS/HCC) Procedures ECG 12 Lead Marcus Recinos MD [address] [place] [address], [address] [address] Referral ID Status Reason Start Date Expiration Date V isi Requested Visits Authorized [id number] Authorized 12/04/2023 12/03/2024 1 1 Reason Comments Toenail Care Non dm nail care Reason Comments Follow-up 6m Specialty Diagnoses / Procedures Referred By Contac t Referred To Contact Cardiology Diagnoses Benign essential hypertension Procedures Follow Up In Cardiology Marcus Recinos MD [address] [place] [address] 2, [address] [address] Phone: tel: fax: Marcus Recinos MD [address] [place] [address] 2, [address] [address] Phone: tel: fax: Referral ID Status Reason Start Date Expiration Date V isits Requested Visits Authorized [id number] Authorized 06/03/2024 06/03/2025 1 1 Reason Comments [...] BE BASED ON THE PRIMARY CLINICAL RECORDS. [employer] provides no warranty or guarantee of the accuracy or completeness of information in this document.
== END 2025-03-17 08:50 | disposition home or self-care (01) ==
LOC: US 08:49
PROVIDERS: PCP Family Medicine; Visit Provider Family Medicine
DX: R94.6 Abnormal results of thyroid function studies (principal); Z90.49 Acquired absence of other specified parts of digestive tract
CPT/HCPCS: 76705

== ENCOUNTER 2025-03-25 13:25 | Outpatient (OUT) | payer MEDICARE, SELFPAY ==
--- OUTSIDE RECORDS SUMMARY | 2025-03-18 08:30 | XMS_ITS | Encounter Summary ---
Author Organization [facility] Address [address] [place] [address] Phone Care Team Providers Care Office Equipment Mechanic Name Role Phone Ej Frausto MD Primary Care Provider [phone] Reason for Referral * Imaging (Routine) - Authorized Specialty Diagnoses / Procedures Referred By Mateo danielle Referred To Contact Cardiology Diagnoses Essential hypertension Atrial flutter, unspecified type (Multi) Mixed hyperlipidemia Former smoker Procedures Vascular US Abdominal Aorta Aneurysm AAA Screening Maria Esther Recinos MD [address] [facility], [facility] [address] [place] [address] Phone: tel: fax: Referral ID Status Reason Start Date Expiration Date Visits Requested Visits Authorized [id number] Authorized Perform Procedure 01/06/2025 01/06/2026 1 1 Reason for Visit * Imaging (Routine) - Authorized Specialty Diagnoses / Procedures Referred By Mateo danielle Referred To Contact Cardiology Diagnoses Essential hypertension Atrial flutter, unspecified type (Multi) Mixed hyperlipidemia Former smoker Procedures Vascular US Abdominal Aorta Aneurysm AAA Screening Maria Esther Recinos MD [address] [facility], [address] [place] [address] Phone: tel: fax: Referral ID Status Reason Start Date Expiration Date Visits Requested Visits Authorized [id number] Authorized Perform Procedure 01/06/2025 01/06/2026 1 1 Encounter Details Date Type Department Care Team (Latest Contact Info) Description 03/18/2025 8:30 AM EDT - 03/18/2025 11:59 PM EDT Hospital Encounter [facility] [address] [facility] [address] [place] [address] Essential hypertension; Atypical atrial flutter; Mixed hyperlipidemia; Former smoker Discharge Disposition: Home Social History Tobacco Use Types Packs/Day Years Used Date Smoking Tobacco: Former Cigarettes Q uit: 2020 Smokeless Tobacco: Never Alcohol Use Standard Drinks/Week Comments Yes 0 (1 standard drink = 0.6 oz pur e alcohol) daily Sex and Gender Information Value Date Recorded Sex Assigned at Not on file Legal Sex Male 3:47 AM EST Gender Identity Not on file Sexual Orientation Not on file COVID-19 Exposure Response Date Recorded In the last 10 days, have yo u been in contact with someone who was confirmed or suspected to have Coronavirus/COVID-19? No / Unsure 03/18/2025 8:30 AM EDT documented as of this encounter Medications at Time of Discharge amiodarone (Pacerone) 200 mg tabletIndications:Un specified atrial flutter (Multi) Take 1 tablet (200 mg) by mouth once daily. 90 tablet 1 03/17/2025 apixaban (Eliquis) 5 mg tabletIndications:At rial flutter, unspecified type (Multi),High risk medication use Take 1 tablet (5 mg) by mouth 2 times a day. 180 tablet 3 01/06/2025 6 aspirin 81 mg EC tabletIndications:At rial flutter, unspecified type (Multi) Take 1 tablet (81 mg) by mouth 1 (one) time per week. 06/07/2024 5 ferrous sulfate 325 (65 Fe) MG EC tablet Take 65 mg by mouth 2 times a day. Do not crush, chew, or split. levothyroxine (Synthroid, Levoxyl) 50 mcg tablet Take 1 tablet (50 mcg) by mouth once daily in the morning. Take on an empty stomach at the same time each day, either 30 to 60 minutes prior to breakfast pantoprazole (ProtoNix) 40 mg EC tablet Take 1 tablet (40 mg) by mouth once daily in the morning. Take before meals. pravastatin (Pravachol) 40 mg tabletIndications:Mi xed hyperlipidemia Take 1 tablet (40 mg) by mouth once daily. 90 tablet 3 09/11/2024 spironolactone (Aldactone) 25 mg tablet Take 0.5 tablets (12.5 mg) by mouth once daily. tamsulosin (Flomax) 0.4 mg 24 hr capsule Take 1 capsule (0.4 mg) by mouth once daily. Ventolin HFA 90 mcg/actuation inhaler Inhale 2 puffs every 4 hours if needed. vitamins A,C,Y-tobt-wzhnro (PreserVision AREDS) 2,148 mcg-113 mg-45 mg-17.4mg tablet Take 1 tablet by mouth every 12 hours. documented as of this encounter Plan of Treatment Upcoming Encounters Date Type Department Care Team (Late st Contact Info) Description 08/25/2025 11:10 AM EDT Office Visit [address] [address] Maria Esther Recinos MD [address] [place] [address] 2, [address] [address] documented as of this encounter Procedures Procedure Name Priority Date/Time Associated Diagnosis Comments [facility] US ABDOMINAL AORTA ANEURYSM AAA SCREENING Routine 03/18/2025 8:55 AM EDT Essential hypertension Atypical atrial flutter Mixed hyperlipidemia Former smoker documented in this encounter Results * Vascular US Abdominal Aorta Aneurysm AAA Screening (03/18/2025 8:55 AM EDT) Anatomical Region Laterality Modality Abdomen Echocardiography 03/18/2025 8:40 AM EDT Narrative 03/20/2025 4:43 PM EDT [address], Suite [facility], [place], [place] [address] Vascular Lab Report [facility] US ABDOMINAL AORTA ANEURYSM AAA SCREENING Patient Name: REMEDIOS Black Physician: [id number] Maria Esther Recinos MD, [facility] Study Date: 03/18/2025 Ordering Provider: [id number] MARIA ESTHER RECINOS MRN/PID: [id number] Fellow: Technologist: Yadira Atkins RDCS, RVT Date of /Age: 12 1955 / 69 years Technologist 2: Gender: M Admission Status: Outpatient Location Performed: [facility] Diagnosis/ICD: Essential primary hypertension-I10; Personal history of tobacco use-Z87.891 Indication: Hyperlipidemia, Atrial Flutter, COPD CPT Codes: 84973 Ultrasound, abdominal aorta, real time with image documentation, screening study for (AAA) CONCLUSIONS: Imaging & Doppler Findings: AORTA AP Lateral Distal 2.53 cm 2.44 cm 30455 Maria Esther Recinos MD, FACC Final Procedure Note Maria Esther Recinos MD - 03/20/[address], [address] [place] [address] Vascular Lab Report [facility] US ABDOMINAL AORTA ANEURYSM AAA SCREENING Patient Name: REMEDIOS Black Physician: [id number] Recinos MDFACTimur Study Date: 03/18/2025 Ordering Provider: Shantel RECINOS MRN/PID: [id number] Fellow: Technologist: Yadira Cam T Date of /Age: 12 1955 / 69 years Technologist 2: Gender: M Admission Status: Outpatient Location Performed: [facility] Diagnosis/ICD: Essential primary hypertension-I10; Personal history oftobacco use-Z87.891 Indication: Hyperlipidemia, Atrial Flutter, COPD CPT Codes: 80423 Ultrasound, abdominal aorta, real time with image documentation, screening study for (AAA) CONCLUSIONS: Imaging & Doppler Findings: AORTA AP Lateral Distal 2.53 cm 2.44 cm 58231 Maria Esther Recinos MD, FACC at4:43:10 PM Final Maria Esther Recinos MD CV VASCULAR PROCEDURES Final Result documented in this encounter Visit Diagnoses Diagnosis Essential hypertension Unspecified essential hypertension Atypical atrial flutter Mixed hyperlipidemia Former smoker Personal history of tobacco use, presenting hazards to health documented in this encounter Additional Health Concerns Assessment Noted Time A fall risk assessment has been complete d for the patient 01/06/2025 1:21 PM EST documented as of this encounter Care Teams Office Equipment Mechanic Relationship Specialty Start Date End Date Ej Frausto MD [address] [place] [address] PCP - General 11/04/99 documented as of this encounter
--- OUTSIDE RECORDS SUMMARY | 2025-03-18 08:30 | XMS_ITS ---
Author Name Auto Generated Organization [facility] Care Team Providers Care Feather Baler Name Role Phone FANY MORTENSEN Attending Unavailable FANY MORTENSEN Attending Unavailable MARIA ESTHER RECINOS Referring Unavailable TIRSO MCCORMICK Primary Care Unavailable MARIA ESTHER RECINOS Attending Unavailable MARIA ESTHER RECINOS Referring Unavailable TIRSO MCCORMICK Primary Care Unavailable MARIA ESTHER RECINOS Attending Unavailable MARIA ESTHER RECINOS Referring Unavailable TIRSO MCCORMICK Primary Care Unavailable PROBLEMS DATE TYPE CONDITION / CODE ATTENDING STATUS [facility] 01/06/2025 Admitting Diagnosis Essential (primary) hypertension / I10(ICD-10) [facility] 06/03/2024 Admitting Diagnosis Personal history of nicotine dependence / Z87.891(ICD-10) [facility] 10/14/2023 Admitting Diagnosis Atypical atrial flutter (Multi) / I48.4(ICD-10) [facility] 10/14/2023 Admitting Diagnosis Mixed hyperlipidemia / E78.2(ICD-10) [facility] 01/06/2025 Admitting Diagnosis Body mass index (BMI) 30.0-30.9, adult / Z68.30(ICD-10) MARIA ESTHER RECINOS [facility] 10/14/2023 Admitting Diagnosis Chronic obstructive pulmonary disease, unspecified / J44.9(ICD-10) MARIA ESTHER RECINOS [facility] 10/14/2023 Admitting Diagnosis Other retirement (current) drug therapy / Z79.899(ICD-10) SEBASTIAN MAYO Miguel [facility] 10/14/2023 Admitting Diagnosis Unspecified atrial flutter (Multi) / I48.92(ICD-10) RECINOSMARIA ESTHER [facility] 10/14/2023 Admitting Diagnosis Hyperlipidemia, unspecified / E78.5(ICD-10) RECINOSMARIA ESTHER [facility] PROCEDURES No Procedure Records Found RESULTS [facility] US ABDOMINAL AORTA ANEURYSM AAA SCREENING Observed: 03/18/2025 8:40 AM Status: F Source: [address], [address] [place] [address] Vascular Lab Report [facility] ABDOMINAL AORTA ANEURYSM AAA SCREENING Patient Name: REMEDIOS Black Physician: [id number] Recinos MD, [facility] Study Date: 03/18/2025 Ordering Provider: [id number] MARIA ESTHER RECINOS MRN/PID: [id number] Fellow: Technologist: Yadira Atkins RDCS, RVT Date of /Age: 12 1955 / 69 years Technologist 2: Gender: M Admission Status: Outpatient Location Performed: [facility] Diagnosis/ICD: Essential primary hypertension-I10; Personal history of tobacco use-Z87.891 Indication: Hyperlipidemia, Atrial Flutter, COPD CPT Codes: 34043 Ultrasound, abdominal aorta, real time with image documentation, screening study for (AAA) CONCLUSIONS: Imaging & Doppler Findings: AORTA AP Lateral Distal 2.53 cm 2.44 cm 38201 Maria Esther Recinos MD, [facility] Final ALLERGIES DATE TYPE / CODE NAME / CODE REACTION SEVERITY SOURCE 10/14/2023 DRUG/[id number] (SNOMED CT) CIPROFLOXACIN (MIXTURE) [facility] ENCOUNTERS ADMIT/DISCHARGE ACCOUNT NUMBER ADMITTING ENCOUNTER CLASS LOCATION SOURCE 03/18/2025/ [id number] Ambulatory Building:BUNNY [id number] [facility] 02/04/2025/ 5 [id number] Ambulatory Building:NOM S CI POD [facility] EPIC 01/06/2025/ 5 [id number] Ambulatory Building:DOT [id number] [facility]ulatory 11/26/2024/ 5 [id number] Ambulatory Building:NOM S CI POD [facility] EPIC 06/03/2024/ 4 [id number] Ambulatory Building:DOT [id number] [facility] Ambulatory PAYERS ENCOUNTER GUARANTOR PAYER SUBSCRIBER SOURCE 03/18/2025 REMEDIOS GONZALEZ: [id number] [address] [place], [place] [address]Tel: () Primary Insurance:MEDICAREPolicy Number: [id number] Date:2019-10-04 REMEDIOS ISAIB: [id number] [place], [place] [address]Tel: () [facility] 03/18/2025 Secondary Insura nce:AETNA SUPPLEMENTALPolicy Number: [id number] Date:2019-10-04 REMEDIOS ISAIB: [id number] [place] [address]Rdx: () [facility] 02/04/2025 REMEDIOS GONZALEZ: [id number] [address] [place], [place] [address]Tel: () () Primary Insurance:MEDICAREPolicy Number: [id number] Date:6303-93-50Lwef Name:Medicare ROGER A CLAUSDOB: [id number] [place] [address], [place] [address] [facility] 02/04/2025 Secondary Insurance:AETNAPolicy Number: [id number] Date:5155-76-89Krly Name:SuppPO BOX [address] [phone]: REMEDIOS ALEXB: [id number], [place] [address] [facility] EPIC 01/06/2025 REMEDIOS ALEXB: [id number] [address] [place] [address]Hcw: () Primary Insurance:MEDICAREPolicy Number: [id number] Date:2019-10-04 REMEDIOS ALEXB: [id number] [place], [place] [address]Tel: () [facility] 01/06/2025 Secondary Insura nce:AETNA SUPPLEMENTALPolicy Number: [id number] Date:2019-10-04 ERMEDIOS ALEXB: [id number] [place], [place] [address]Tel: () [facility] 11/26/2024 REMEDIOS ALEXB: [id number] [address] [place] [address], [place] [address]Atk: () () Primary Insurance:MEDICAREPolicy Number: [id number] Date:5868-30-82Toem Name:Medicare REMEDIOS ALEXB: [id number], [place] [address] [facility] EPIC 11/26/2024 Secondary Insurance:AETNAPolicy Number: [id number] Date:4872-51-24Kvsv Name:Paddy[address] [phone]: REMEDIOS ALEXB: [id number], [place] [address] [facility] EPIC 06/03/2024 REMEDIOS VAUGHANB: [id number] [address] [place] [address]Dpr: () Primary Insurance:MEDICAREPolicy Number: [id number] Date:2019-10-04 REMEDIOS CARLOS: [id number] [place] [address]Qyy: () [facility] 06/03/2024 Secondary Insura nce:AETNA SUPPLEMENTALPolicy Number: [id number] Date:2019-10-04 REMEDIOS CARLOS: [id number] [place] [address]Eie: () [facility]
--- OUTSIDE RECORDS SUMMARY | 2025-03-23 09:30 | XMS_ITS ---
Author Organization [facility] in [place] Address [address] [place] [address] Care Team Providers Care Paper Mill Supervisor Name Role Phone Jim Frausto Primary Care Provider Results Component Value Reference Range Notes UA (Urinalysis, Dipstix only - w/o micro) Reviewed date:03/23/2025 01:36:14 PM Interpretation: Performing Lab: Notes/Report: COLOR yellow Yellow - Cher - CLARITY clear Clear - Clear GLUCOSE - 0 - 133 MG/DL ALBUMIN - NEG - NEG MG/DL BILIRUBIN - NEG - NEG MG/DL SPECIFIC GRAVITY 1.015 1.001 - 1.035 KETONES - NEG - NEG MG/DL BLOOD, UR - PH, UR 5 5 - 9 UROBILNOGEN - 0.2 - 1 MG/DL NITRITE - NEG - NEG ESTERASE (EMMANUEL) - NEG - NEG MG/DL REASON FOR VISIT possible UTI Encounters Encounter Location Date Provider Diagnosis [facility] [address] [place] [address] 03/23/2025 Jim Frausto Flank pain R10.9 Assessments Encounter Date Diagnosis (ICD Code) Assessment Notes Treatment Notes Treatment Clinical Notes Section Notes 03/23/2025 Flank pain (ICD-10 - R10.9) Plan Of Treatment No Information Progress Notes * ALEXUS DarriusDOB:1955 ( 69 yo M)Acc No.[id number]:03/23/2025 Nurse Visit Patient: Darrius HERNANDEZ Provider: Eneida Frausto ([facility])MD :1955 A ge:69 Y S ex:Male Date:03/23/2025 Address:[address] [place] [address] [address] [facility] NAVEEN [id number] Check In:01:28 PM ESTCheck O ut:01:38 PM EST Subjective: * Chief Complaints: * p ossible UTI * HPI: G eneral: presents to the office for a nurse visit for a ua. * Active Problem List E11.65 Type 2 diabetes sherron itus with hyperglycemia, without long-term current use of insulin Modified On:01/08/2024 Status:confirmed E78.5 Dyslipidemia Modified On:02/04/2023 Status:confirmed I48.92 Atrial flutter Modified On:01/08/2024 Status:confirmed I10 Essential (primary) hypertension Modified On:01/08/2024 Status:confirmed J44.9 Chronic obstructive pulmonary disease, unspecified Modified On:07/09/2023 Status:confirmed J20.9 Acute bronchitis Modified On:07/09/2023 Status:confirmed J21.9 Acute bronchiolitis Modified On:11/25/2023 Status:confirmed E78.5 Hyperlipemia Modified On:01/08/2024 Status:confirmed E05.90 Hyperthyroidism Modified On:01/08/2024 Status:confirmed I48.92 Unspecified atrial f lutter Modified On:01/21/2024 Status:confirmed J01.90 Acute sinus infectio n Modified On:02/13/2024 Status:confirmed K57.30 Diverticulosis of la rge intestine without perforation or abscess without bleeding Modified On:02/21/2024 Status:confirmed H61.20 Cerumen impaction Modified On:03/12/2024 Status:confirmed E03.9 Hypothyroid Modified On:03/04/2025 Status:confirmed K76.0 Fatty liver Modified On:03/18/2025 Status:confirmed * Medical History: * Surgical History: * Hospitalization/Major Diagno stic Procedure: * Medications: Objective: * Vitals: Assessment: * Assessment: 1. F lank pain - R10.9 (Primary) Plan: * Treatment: * Labs: * L ab: UA (Urinalysis, Dipstix only - w/o micro) (Collection Date & Time - 03/23/2025) Value Reference Range C OLOR yellow Yellow - Cher - * C LARITY clear Clear - Clear * G LUCOSE - 0 - 133 MG/DL * A LBUMIN - NEG - NEG MG/DL * B ILIRUBIN - NEG - NEG MG/DL * S PECIFIC GRAVITY 1.015 1.001 - 1.035 * K ETONES - NEG - NEG MG/DL * B LOOD, UR - * P H, UR 5 5 - 9 * U ROBILNOGEN - 0.2 - 1 MG/DL * N ITRITE - NEG - NEG * E STERASE (EMMANUEL) - NEG - NEG MG/DL * Procedure Codes: 8 1002 URINALYSIS WO MICRO * * Sign off status: Completed Visit Status: C HK (Check Out) true * Provider: Eneida Frausto (TTC)MD Date: 0 03/23/2025 Generated for Genoi ng/Fakimberlyg/eTransmitting on: 0 03/25/2025 01:28 PM EDT History and Physical Notes * HPI (History of Present Illness) Category Sub-Category Detail Notes Category Not es General presents to the office for a nurse visit for a ua
--- OUTSIDE RECORDS SUMMARY | 2025-03-23 09:36 | XMS_ITS ---
Author Organization [facility] [place] Address [address] [place] [address] Care Team Providers Care At Risk Paraprofessional Name Role Phone Jim Frausto Primary Care Provider REASON FOR VISIT nurse visit- CALL SATURDAY- ISSUES? Encounters Encounter Location Date Provider Diagnosis [facility] [address] [facility] [place] [address] 03/23/2025 Jim Frausto Plan Of Treatment No Information Progress Notes * ALEXUSDarrius WALDENDOB:1955 ( 69 yo M)Acc No.[id number]:03/23/2025 Patient: Darrius HERNANDEZ :1955 A ge:69 Y S ex:Male Address:[address] [place] [address] Subjective: * Chief Complaints: * n urse visit- CALL SATURDAY- ISSUES? * Medical History: * Surgical History: * Hospitalization/Major Diagno stic Procedure: * Medications: Objective: * Vitals: * P ast Orders: L ab:UA (Urinalysis, Dipstix only - w/o micro) (Order Date - 03/23/2025) (Collection Date & Time - 03/23/2025) Value Reference Range COLOR yellow Yellow - Cher - CLARITY [...] ESTERASE (EMMANUEL) - NEG - NEG MG/DL * Physical Examination: Assessment: Plan: * Treatment: * Procedure Codes: * true * Date: Generated for Bernarda norwood/Sandie/Yesenia on: 0 03/25/2025 01:28 PM EDT
--- OUTSIDE RECORDS SUMMARY | 2025-03-24 05:08 | XMS_ITS ---
Author Organization [facility] in [place] Address [address] [place] [address] Care Team Providers Care Conversion Worker Name Role Phone Jim Frausto Primary Care Provider REASON FOR VISIT Kidney Stones Encounters Encounter Location Date Provider Diagnosis [facility] [address] [place] [address] 03/24/2025 Jim Frausto Flank pain R10.9 Assessments Encounter Date Diagnosis (ICD Code) Assessment Notes Treatment Notes Treatment Clinical Notes Section Notes 03/24/2025 Flank pain (ICD-10 - R10.9) Plan Of Treatment Pending Test Test Name Order Date CT Abdomen and Pelvis w/o contrast 03/24 Progress Notes * ALEXUSDarrius WALDENDOB:1955 ( 69 yo M)Acc No.[id number]:03/24/2025 Patient: Darrius HERNANDEZ :1955 A ge:69 Y S ex:Male Address:[address] [place] [address] Subjective: * Chief Complaints: * K idney Stones * Medical History: * Surgical History: * Hospitalization/Major Diagno stic Procedure: * Medications: Objective: * Vitals: * Physical Examination: Assessment: * Assessment: 1. F lank pain - R10.9 (Primary) Plan: * Treatment: * Procedure Codes: * true * Date: Generated for Printi ng/Faxing/eTransmitting on: 0 03/25/2025 01:28 PM EDT
--- NOTE | 2025-03-25 13:28 | CT_ITS ---
The [address] [address] Patient Name: REMEDIOS VAUGHAN MRN: [id number] date: 1955 Sex: M Assigned Patient Location: CT Current Patient Location: CT Accession/Order Number: [id number] Exam Date: 03/25/2025 13:52 Report Date: 03/25/2025 14:00 At the request of: TIRSO MCCORMICK MD Procedure: CT abdomen pelvis wo con CT ABDOMEN AND PELVIS WITHOUT CONTRAST COMPARISON: None CLINICAL DATA: Chronic left flank pain. Spiral images were obtained through the abdomen and pelvis without contrast. This CT exam was performed using one or more following dose reduction techniques: Automated exposure control, adjustment of the mA and/or kV according to patient size, or use of iterative reconstruction technique. Limited cuts through the lung bases show no contributory findings. Evaluation of the intra-abdominal organs is slightly limited by the absence of contrast. The gallbladder surgically absent. No biliary dilatation is seen. Mild fatty infiltration of the liver is suspected. The spleen, pancreas and adrenal glands show no acute findings. No renal calculi or hydronephrosis are noted. No ureteral dilatation or stones are seen. There is atherosclerotic plaque involving the aorta, iliac and some of the visceral arteries. Small retroperitoneal lymph nodes are visualized. No ascites is seen. There is moderate food debris within the stomach. There are normal caliber small bowel loops. There is stool within the colon, greater on the right. There are some left-sided colonic diverticula. There are mild degenerative changes at the spine, greatest at the lower facets. No compression fractures or displacement are noted Images through the pelvis show normal caliber small bowel loops. No appendiceal inflammation is seen. There is rectosigmoid stool. The remainder of the sigmoid colon is underdistended. There are additional colonic diverticula, without associated active inflammation. There is a bilobed umbilical hernia containing fat. The prostate is borderline prominent and contains calcification. The urinary bladder is not well distended and there is apparent wall thickening. No ascites is noted. CT/CT abdomen pelvis wo con IMPRESSION: SUSPECTED FATTY LIVER. NO OBSTRUCTIVE UROPATHY OR STONE DISEASE. NO BOWEL OBSTRUCTION. DIVERTICULOSIS. UNDER DISTENDED URINARY BLADDER WITH APPARENT WALL THICKENING. NO OTHER ACUTE FINDINGS. Impression dictated by: Nikki Gleason M.D. 03/25/2025 2:00 PM Dictation Location: [place] [address] Electronically authenticated by: [id number] Y Date: 03/25/2025 14:00
--- OUTSIDE RECORDS SUMMARY | 2025-03-25 13:28 | XMS_ITS | Encounter Summary ---
Author Organization [facility] Address [address] [place] [address] Phone Care Team Providers Care Delivery Man Name Role Phone Ej Frausto MD Primary Care Provider [phone] Encounter Details Date Type Department Care Team (Late st Contact Info) Description 01/09/2024 Scanned Document [facility] [address] [place] [address] Scanning, Generic Provider Social History Tobacco Use Types Packs/Day Years Used Date Smoking Tobacco: Former Cigarettes Q uit: 2020 Smokeless Tobacco: Never Alcohol Use Standard Drinks/Week Comments Yes 35 (1 standard drink = 0.6 oz pu re alcohol) Sex and Gender Information Value Date Recorded Sex Assigned at Not on file Legal Sex Male 3:47 AM EST Gender Identity Not on file Sexual Orientation Not on file documented as of this encounter Plan of Treatment Upcoming Encounters Date Type Department Care Team (Late st Contact Info) Description 08/25/2025 11:10 AM EDT Office Visit [facility] [address] [facility] [address] [place] [phone] Marcus Recinos MD [address] [facility] [address] [place], [place] [address] documented as of this encounter Procedures Procedure Name Priority Date/Time Associated Diagnosis Comments OUTSIDE IMAGING SCAN 01/09/2024 SURGICAL PATHOLOGY EXAM 01/09/2024 documented in this encounter Results * SURGICAL PATHOLOGY EXAM (01/09/2024) Narrative 01/09/2024 Ordered by an unspecified provider. us Generic Provider Scanning LAB PATHOLOGY ORDERABL ES Final Result * OUTSIDE IMAGING SCAN (01/09/2024) Anatomical Region Laterality Modality Other Narrative 01/09/2024 Ordered by an unspecified provider. us Generic Provider Scanning OUTSIDE SCAN Final Result documented in this encounter Visit Diagnoses Not on filedocumented in this encounter Additional Health Concerns Assessment Noted Time A fall risk assessment has been complete d for the patient 12/04/2023 9:04 AM EST documented as of this encounter Care Teams Delivery Man Relationship Specialty Start Date End Date Ej Frausto MD [address] [place] [address] PCP - General 11/04/99 documented as of this encounter
--- OUTSIDE RECORDS SUMMARY | 2025-03-25 13:28 | XMS_ITS | Encounter Summary ---
Author Organization [facility] Address [address] [place] [address] Phone Care Team Providers Care Thread Trimmer Name Role Phone Ej Frausto MD Primary Care Provider [phone] Encounter Details Date Type Department Care Team (Late st Contact Info) Description 01/01/2023 Orders Only [facility] [address] [place] [address] Conversion, Onbase Social History Tobacco Use Types Packs/Day Years Used Date Smoking Tobacco: Never Assessed Sex and Gender Information Value Date Recorded Sex Assigned at Not on file Legal Sex Male 3:47 AM EST Gender Identity Not on file Sexual Orientation Not on file documented as of this encounter Plan of Treatment Upcoming Encounters Date Type Department Care Team (Late st Contact Info) Description 08/25/2025 11:10 AM EDT Office Visit [place] [id number] [facility] [address] [place] [address] Marcus Recinos MD [address]03 [facility] 2, [facility] [address] [place] [address] Scheduled Orders Name Type Priority Associated Diagnoses Orde r Schedule OUTSIDE LAB SCAN Lab Ordered: 01/01/2023 documented as of this encounter Visit Diagnoses Not on filedocumented in this encounter Care Teams Thread Trimmer Relationship Specialty Start Date End Date Ej Frausto MD [address] [facility] [place] [address] PCP - General 11/04/99 documented as of this encounter
--- OUTSIDE RECORDS SUMMARY | 2025-03-25 13:28 | XMS_ITS | Clinical Summary ---
Author Organization [facility] Address [address] [place] [address] Phone Care Team Providers Care Advertising Operations Coordinator Name Role Phone Ej Frausto MD Primary Care Provider [phone] Allergies Active Allergy Reactions Criticality Noted Date Comments Ciprofloxacin (Mixture) Rash Low 10/14/2023 Medications Ventolin HFA 90 mcg/actuation inhaler Inhale 2 puffs every 4 hours if needed. Active pantoprazole (ProtoNix) 40 mg EC tablet Take 1 tablet (40 mg) by mouth once daily in the morning. Take before meals. Active spironolactone (Aldactone) 25 mg tablet Take 0.5 tablets (12.5 mg) by mouth once daily. Active tamsulosin (Flomax) 0.4 mg 24 hr capsule Take 1 capsule (0.4 mg) by mouth once daily. Active vitamins A,C,V-opqb-ogdatx (PreserVision AREDS) 2,148 mcg-113 mg-45 mg-17.4mg tablet Take 1 tablet by mouth every 12 hours. Active ferrous sulfate 325 (65 Fe) MG EC tablet Take 65 mg by mouth 2 times a day. Do not crush, chew, or split. Active levothyroxine (Synthroid, Levoxyl) 50 mcg tablet Take 1 tablet (50 mcg) by mouth once daily in the morning. Take on an empty stomach at the same time each day, either 30 to 60 minutes prior to breakfast Active aspirin 81 mg EC tabletIndications :Atrial flutter, unspecified type (Multi) Take 1 tablet (81 mg) by mouth 1 (one) time per week. 06/07/20 24 025 Active pravastatin (Pravachol) 40 mg tabletIndications :Mixed hyperlipidemia Take 1 tablet (40 mg) by mouth once daily. 90 tablet 3 09/11/20 24 025 Active apixaban (Eliquis) 5 mg tabletIndications :Atrial flutter, unspecified type (Multi),High risk medication use Take 1 tablet (5 mg) by mouth 2 times a day. 180 tablet 3 01/07/20 25 026 Active amiodarone (Pacerone) 200 mg tabletIndications :Unspecified atrial flutter (Multi) Take 1 tablet (200 mg) by mouth once daily. 90 tablet 1 03/17/20 25 Active amiodarone (Pacerone) 200 mg tabletIndications :Unspecified atrial flutter (Multi) TAKE 1 TABLET BY MOUTH EVERY DAY 90 tablet 1 09/29/20 24 025 Discontinued Active Problems Problem Noted Date Diagnosed Date BMI 30.0-30.9,adult 06/03/2024 Former smoker 06/03/2024 Atrial flutter (Multi) 10/14/2023 Essential hypertension 10/14/2023 Hyperlipidemia 10/14/2023 COPD (chronic obstructive pulmonary disease) (Mu lti) 10/14/2023 Shortness of breath 10/14/2023 High risk medication use 10/14/2023 Encounters Date Type Department Care Team Description 03/22/[address] [address] Jade Flores CMA 03/18/2025 8:30 AM EDT - 03/18/2025 11:59 PM EDT Hospital Encounter [place] [address] [place] [address] Essential hypertension; Atypical atrial flutter; Mixed hyperlipidemia; Former smoker Discharge Disposition: Home 03/18/2025 Travel 03/17/[address] [address] Marcus Recinos MD Unspecified atrial flutter (Multi) 01/06/2025 1:20 PM EST Office Visit [address] [address] Marcus Recinos MD Atypical atrial flutter (Multi) (Primary Dx); Essential hypertension; High risk medication use; Mixed hyperlipidemia; Chronic obstructive pulmonary disease, unspecified COPD type (Multi); BMI 30.0-30.9,adult; Former smoker; Obesity, Class I, BMI 30-34.9; Hypothyroidism, unspecified type 01/06/2025 Refill [place] [id number] [address] Margaret Galvez LPN Atrial flutter, unspecified type (Multi); High risk medication use 01/06/2025 Travel 12/28/2024 Scanned Document [facility] [address] [facility] [place] [address] Scanning, Generic Provider from Last 3 Months Family History Medical History Relation Name Comments cardiac pacemaker Brother Hypertension Father Breast cancer Mother Migraines Sister Relation Name Status Comments Brother Father Mother Sister Social History Tobacco Use Types Packs/Day Years Used Date Smoking Tobacco: Former Cigarettes Q uit: 2020 Smokeless Tobacco: Never Tobacco Cessation:Counseling Given: Not Answered Alcohol Use Standard Drinks/Week Comments Yes 0 [...] No / Unsure 03/18/2025 8:30 AM EDT Last Filed Vital Signs Vital Sign Reading Time Taken Comments Blood Pressure 120/60 01/06/2025 1:22 PM EST Pulse 55 01/06/2025 1:22 PM EST Temperature - - Respiratory Rate - - Oxygen Saturation - - Inhaled Oxygen Concentration - - Weight 102 kg (224 lb) 01/06/2025 1:22 PM EST Height 182.9 cm (6') 01/06/2025 1:22 PM EST Body Mass Index 30.38 01/06/2025 1:22 PM EST Plan of Treatment Upcoming Encounters Date Type Department Care Team (Late st Contact Info) Description 08/25/2025 11:10 AM EDT Office Visit [facility] [address] [facility] [address] [place] [address] Marcus Recinos MD [address] [facility] [address], [address] [place] [address] Health Maintenance Due Date Last Done Comments CT Colonography 1955 FIT-DNA (Cologuard) 1955 FIT 1954 Lipid Panel 1955 Sigmoidoscopy 1955 TSH Level 1954 Diabetes Screening 1972 Hepatitis C Screening 1972 Pneumococcal Vaccine (1 of 2 - PCV) 1973 DTaP/Tdap/Td Vaccines (1 - Tdap) 1976 Zoster Vaccines (1 of 2) 2004 RSV High Risk: (Elderly (60+ ) or Population) (1 - Risk 60-74 years 1-dose series) 2014 COVID-19 Vaccine ( - 2023-2 5 season) 2024 Medicare Annual Wellness Vis it (AWV) 01/20/2025 01/20/2024, 10/02/2022 Influenza Vaccine (Season Ended) 2025 Colonoscopy 04/12/2031 04/12/2021 Colorectal Cancer Screening 04/12/2031 Abdominal Aortic Aneurysm (AAA) Screening Completed 03/18/2025 HIB Vaccines Aged Out No longer eligi ble based on patient's age to complete this topic HPV Vaccines Aged Out No longer eligi ble based on patient's age to complete this topic Hepatitis A Vaccines Aged Out No long er eligible based on patient's age to complete this topic Hepatitis B Vaccines Aged Out No long er eligible based on patient's age to complete this topic IPV Vaccines Aged Out No longer eligi ble based on patient's age to complete this topic Meningococcal Vaccine Aged Out No ana mukesh eligible based on patient's age to complete this topic Rotavirus Vaccines Aged Out No longer eligible based on patient's age to complete this topic Procedures Procedure Name Priority Date/Time Associated Diagnosis Comments VASC US ABDOMINAL AORTA ANEURYSM AAA SCREENING Routine 03/18/2025 8:55 AM EDT Essential hypertension Atypical atrial flutter Mixed hyperlipidemia Former smoker ECG 12-LEAD Routine 01/06/2025 1:20 PM EST Atypical atrial flutter (Multi) OUTSIDE LAB SCAN 12/28/2024 OUTSIDE IMAGING SCAN 12/28/2024 from Last 3 Months Results * Vascular US Abdominal Aorta Aneurysm AAA Screening (03/18/2025 8:55 AM EDT) Anatomical Region Laterality Modality Abdomen Echocardiography 03/18/2025 8:40 AM EDT Narrative 03/20/2025 4:43 PM EDT [place] [address] [facility]BDOM[facility] AORTA ANEURYSM AAA SCREENING Patient Name: REMEDIOS Black Physician: [id number] Recinos MD, FACC Study Date: 03/18/2025 Ordering Provider: [id number] RECINOS MRN/PID: [id number] Fellow: Technologist: Yadira Atkins RDCS Rojas Date of /Age: 12 1955 / 69 years Technologist 2: Gender: M Admission Status: Outpatient Location Performed: [facility] Diagnosis/ICD: Essential primary hypertension-I10; Personal history of tobacco use-Z87.891 Indication: Hyperlipidemia, Atrial Flutter, COPD CPT Codes: 98983 Ultrasound, abdominal aorta, real time with image documentation, screening study for (AAA) CONCLUSIONS: Imaging & Doppler Findings: AORTA AP Lateral Distal 2.53 cm 2.44 cm Shantel Recinos MD, FACC Final Procedure Note Marcus Recinos MD - 03/20/2025 [place] [address] [facility], [address], [place] [address] Vascular Lab Report [facility] ABDOMINAL AORTA ANEURYSM AAA SCREENING Patient Name: REMEDIOS VAUGHAN Wayne Physician: Jessica Recinos MD,FACC Study Date: 03/18/2025 Ordering Provider: Shantel RECINOS MRN/PID: [id number] Fellow: Technologist: Yadira Cam RVT Date of /Age: 12 1955 / 69 years Technologist 2: Gender: M Admission Status: Outpatient Location Performed: [facility] Diagnosis/ICD: Essential primary hypertension-I10; Personal history oftobacco use-Z87.891 Indication: Hyperlipidemia, Atrial Flutter, COPD CPT Codes: 52021 Ultrasound, abdominal aorta, real time with image documentation, screening study for (AAA) CONCLUSIONS: Imaging & Doppler Findings: AORTA AP Lateral Distal 2.53 cm 2.44 cm Shantel Recinos MD, [facility] at4:43:10 PM Final Result [facility] Marcus Recinos MD CV VASCULAR PROCEDURES Final Result * ECG 12 Lead (01/06/2025 1:20 PM EST) Narrative [facility] - 01/06/2025 1:39 PM EST ECG revealed sinus bradycardia with first-degree AV block, left axis deviation, 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, abnormal ECG Marcus Recinos MD ECG ORDERABLES Final Result [facility] * OUTSIDE IMAGING SCAN (12/28/2024) Anatomical Region Laterality Modality Other Narrative 12/28/2024 Ordered by an unspecified provider. us Generic Provider Scanning OUTSIDE SCAN Final Result * OUTSIDE LAB SCAN (12/28/2024) Narrative 12/28/2024 Ordered by an unspecified provider. us Generic Provider Scanning OUTSIDE SCAN Final Result from Last 3 Months Insurance MEDICARE PART A AND B [facility] SENIOR SUPPLEMENT MEDICARE PART A AND B [facility] SENIOR SUPPLEMENT Care Teams Advertising Operations Coordinator Relationship Specialty Start Date End Date Ej Frausto MD [address] [place] [address] PCP - General 11/04/99
--- OUTSIDE RECORDS SUMMARY | 2025-03-25 13:28 | XMS_ITS | Clinical Summary ---
Author Organization [facility] Address [address] [place] [address] Care Team Providers Care Malariologist Name Role Phone Ej Frausto MD Primary Care Provider [phone] Allergies Active Allergy Reactions Criticality Noted Date Comments Ciprofloxacin Rash Low 11/26/2024 Other Reaction(s): sunburn look/rash Medications spironolactone (Aldactone) 25 MG tablet TAKE 1/2 TABLET BY MOUTH EVERY DAY 90 DAYS Active pantoprazole (ProtoNix) 40 MG EC tablet Take 40 mg by mouth Daily Active pravastatin (Pravachol) 40 MG tablet Take 40 mg by mouth in the morning. 09/11/2024 Active tamsulosin (Flomax) 0.4 MG 24 hr capsule Take 0.4 mg by mouth Daily Active amiodarone (Pacerone) 200 MG tablet Take 200 mg by mouth in the morning. 09/29/2024 Active ferrous sulfate 325 (65 Fe) MG tablet Take 1 tablet by mouth in the morning and 1 tablet before bedtime. 10/02/2024 Active levothyroxine (Synthroid, Levoxyl) 50 MCG tablet Take 50 mcg by mouth in the morning. Take before meals. Active Active Problems No known active problems Encounters Date Type Department Care Team Description 02/04/2025 10:20 AM EDT Procedure Visit [facility] [address] [place] [address] Joe García DPM Diabetes mellitus due to underlying condition with diabetic polyneuropathy, unspecified whether bed bug exterminator insulin use ([facility]) (Primary Dx); Pain due to onychomycosis of toenails of both feet 02/04/2025 Bamboo flowsheet [facility] [address] [place] [address] Joe García DPM 02/04/2025 Travel from Last 3 Months Family History Medical History Relation Name Comments Arthritis Mother Cancer Mother Diabetes Mother Relation Name Status Comments Mother Social History Tobacco Use Types Packs/Day Years Used Date Smoking Tobacco: Never Smokeless Tobacco: Never Tobacco Cessation:Counseling Given: Yes Alcohol Use Standard Drinks/Week Comments Yes 0 (1 standard drink = 0.6 oz pur e alcohol) Sex and Gender Information Value Date Recorded Sex Assigned at Not on file Legal Sex Male 8:32 PM EDT Gender Identity Not on file Sexual Orientation Not on file Last Filed Vital Signs Vital Sign Reading Time Taken Comments Blood Pressure - - Pulse - - Temperature - - Respiratory Rate 16 02/04/2025 10:08 AM EDT Oxygen Saturation - - Inhaled Oxygen Concentration - - Weight 104 kg (230 lb) 02/04/2025 10:08 AM EDT Height 182.9 cm (6') 02/04/2025 10:08 AM EDT Body Mass Index 31.19 02/04/2025 10:08 AM EDT Plan of Treatment Upcoming Encounters Date Type Department Care Team (Late st Contact Info) Description 04/15/2025 11:10 AM EDT Procedure Visit [facility] [address] [facility] [address] [place] [address] Joe García DPM [address] [facility] [address] [place] [address] Insurance MEDICARE [employer] Care Teams Malariologist Relationship Specialty Start Date End Date Ej Frausto MD PCP - General Family Medicine 11/26/24
--- OUTSIDE RECORDS SUMMARY | 2025-03-25 13:28 | XMS_ITS | Encounter Summary ---
Author Organization [facility] Address [address] [place] [address] Phone Care Team Providers Care Agency Service Representative Name Role Phone Ej Frausto MD Primary Care Provider [phone] Encounter Details Date Type Department Care Team (Late st Contact Info) Description 01/22/2022 Orders Only [facility] [address] [place] [address] Conversion, Onbase Social History Tobacco Use Types [...] Description 08/25/2025 11:10 AM EDT Office Visit [place] [address] [facility] [address] [place] [address] Marcus Recinos MD 703 [facility] 2, [facility] [address] [place] [address] Scheduled Orders Name Type Priority Associated Diagnoses Orde r Schedule OUTSIDE LAB SCAN Lab Ordered: 01/22/2022 documented as of this encounter Visit Diagnoses Not on filedocumented in this encounter Care Teams Agency Service Representative Relationship Specialty Start Date End Date Ej Frausto MD [address] [facility] [place] [address] PCP - General 11/04/99 documented as of this encounter
--- OUTSIDE RECORDS SUMMARY | 2025-03-25 13:28 | XMS_ITS | Encounter Summary ---
Author Organization [facility] Address [address] [place] [address] Phone Care Team Providers Care Beauty Culturist Apprentice Name Role Phone Ej Frausto MD Primary Care Provider [phone] Encounter Details Date Type Department Care Team (Late st Contact Info) Description 10/22/2022 Orders Only [facility] [address] [place] [address] Conversion, Onbase Social History Tobacco Use Types [...] Description 08/25/2025 11:10 AM EDT Office Visit [facility] [address] [facility] [address] [place] [address] Marcus Recinos MD 703 [facility] 2, [facility] [address] [place], [place] [id number] Scheduled Orders Name Type Priority Associated Diagnoses Orde r Schedule OUTSIDE LAB SCAN Lab Ordered: 10/22/2022 documented as of this encounter Visit Diagnoses Not on filedocumented in this encounter Care Teams Beauty Culturist Apprentice Relationship Specialty Start Date End Date Ej Frausto MD [address] [facility] [place] [address] PCP - General 11/04/99 documented as of this encounter
--- OUTSIDE RECORDS SUMMARY | 2025-03-25 13:28 | XMS_ITS | Encounter Summary ---
Author Organization [facility] Address [address] [place] [address] Phone Care Team Providers Care Match Marker Name Role Phone Ej Frausto MD Primary Care Provider [phone] Encounter Details Date Type Department Care Team (Late st Contact Info) Description 01/11/2023 Orders Only [facility] [address] [place] [address] Conversion, Onbase Social History Tobacco Use Types [...] Description 08/25/2025 11:10 AM EDT Office Visit [place] [address] [facility] [address] [place] [address] Marcus Recinos MD 703 [facility] 2, [facility] [address] [place] [address] Scheduled Orders Name Type Priority Associated Diagnoses Orde r Schedule OUTSIDE LAB SCAN Lab Ordered: 01/11/2023 documented as of this encounter Visit Diagnoses Not on filedocumented in this encounter Care Teams Match Marker Relationship Specialty Start Date End Date Ej Frausto MD [address] [facility] [place] [address] PCP - General 11/04/99 documented as of this encounter
--- OUTSIDE RECORDS SUMMARY | 2025-03-25 13:28 | XMS_ITS | Encounter Summary ---
Author Organization [facility] Address [address] [place] [address] Phone Care Team Providers Care Colon And Rectal Surgeon Name Role Phone Ej Frausto MD Primary Care Provider [phone] Encounter Details Date Type Department Care Team (Late st Contact Info) Description 07/28/2024 Scanned Document [facility] [address] [place] [address] Scanning, Generic Provider Social History Tobacco Use [...] Description 08/25/2025 11:10 AM EDT Office Visit [facility] [address] [facility] [address] [place] [address] Marcus Recinos MD 703 [facility] 2, [address] [place], [place] [id number] documented as of this encounter Procedures Procedure Name Priority Date/Time Associated Diagnosis Comments OUTSIDE LAB SCAN 07/28/2024 documented in this encounter Results * OUTSIDE LAB SCAN (07/28/2024) Narrative 07/28/2024 Ordered by an unspecified provider. us Generic Provider Scanning OUTSIDE SCAN Final Result documented in this encounter Visit Diagnoses Not on filedocumented in this encounter Additional Health Concerns Assessment Noted Time A fall risk assessment has been complete d for the patient 12/04/2023 9:04 AM EST documented as of this encounter Care Teams Colon And Rectal Surgeon Relationship Specialty Start Date End Date Ej Frausto MD [address] [place] [id number] PCP - General 11/04/99 documented as of this encounter
--- OUTSIDE RECORDS SUMMARY | 2025-03-25 13:28 | XMS_ITS | Patient Health Record ---
Author Organization [facility] [place] Address [address] [place] [address] Care Team Providers Care Marine Geologist Name Role Phone Jim Mccormick Primary Care Provider TIRSO MCCORMICK Unavailable [phone] Allergies Allergen (clinical drug ingredient) Drug/Non Drug Allergy documented on EMR Reaction Allergy Type Onset Date Status ciprofloxacin Ciprofloxacin rash Drug Allergy Active Results Component Value Reference Range Notes COVID-19, Flu A+B IH Reviewed date:12/28/2024 08:06:45 PM Interpretation: Performing Lab: Notes/Report: COVID neg FLU A neg FLU B neg Control POS GLYCOHEMOGLOBIN A1C Reviewed date:07/28/2024 12:15:10 PM Interpretation: Performing Lab: Notes/Report: [facility] , Glycohemoglobin A1C 6.4 4.5-6.2 % ADA RECOMMENDED LIMIT 4.0 - 6.0 > 7.0 ADA THERAPEUTIC TARGET < 7.0 ACTION SUGGESTED Estimated Average Glucose 137 Performing Lab: see note ML - [facility] LB HEMOGLOBIN Reviewed date:12/28/2024 08:21:43 AM Interpretation: Performing Lab: Notes/Report: [facility] , Hemoglobin 16.0 14.0-18.0 g/dL Performing Lab: see note ML - [facility] LB PROF CHEM 8 (BAS METB) Reviewed date:12/28/2024 08:06:45 PM Interpretation: Performing Lab: Notes/Report: [facility] , Sodium 141 136-145 mmol/L Potassium 4.6 3.5-5.1 mmol/L Chloride 103 98-107 mmol/L Carbon Dioxide 29.4 21.0-32.0 mmol/L Anion Gap 13.2 Glucose 132 74-106 mg/dL Blood Urea Nitrogen 12.0 7.0-18.0 mg/dL Creatinine 1.01 0.70-1.30 mg/dL Estimated GFR ( Mary >60 >=60 mL/min/1.73m 2 Estimated GFR (Non- Debby >60 >=60 mL/min/1.73m 2 BUN Creatinine Ratio 11.9 Calcium 9.2 8.5-10.1 mg/dL Performing Lab: see note ML - [facility] LB SGOT Reviewed date:12/28/2024 08:06:45 PM Interpretation: Performing Lab: Notes/Report: [facility] , Aspartate Amino Transferase 64 15-37 U/L Performing Lab: see note - [facility] LB TSH Reviewed date:12/28/2024 08:06:45 PM Interpretation: Performing Lab: Notes/Report: [facility] , Thyroid Stimulating Hormone 2.863 0.358-3.740 uIU/mL Performing Lab: see note - [facility] RT pulmonary function test Reviewed date:12/29/2024 01:43:35 PM Interpretation: Performing Lab: Notes/Report: Source Facility: [place] [address] Respiratory Report Signed Patient: DARRIUS VAUGHAN MR#: [id number] : 1955 Acct:[id number] Age/Sex: 69 / M ADM Date: 12/28/24 Loc: LAB Attending Dr: MARIA ESTHER CORTES Ordering Physician: MARIA ESTHER CORTES Date of Service: 12/28/24 Procedure(s): RT pulmonary function test Accession Number(s): [id number] cc: [facility] Test Date: 2024-12-28 Pat Name: DARRIUS VAUGHAN Department: Room: - Gender: Male Cad Design Engineer: Rakesh Wagner RRT : 1955 Requested By: 358 Order Number: [id number] Wayne MD: Gasper Sewell Interpretive Statements Pulmonary function testing was completed according to ATS criteria. Findings were considered accurate and reproducible, though it did not meet ATS standards given lack of 3 acceptable maneuvers. Both pre- and post-bronchodilator values utilized for spirometry. Spirometry (based on pre-bronchodilator values): -FEV1/FVC: Reduced @ 51% -FEV1: Severely reduced @ 47% -FVC: Reduced @ 69% -There is a positive bronchodilator response in FEV1 and FVC. Lung volumes by plethysmography (based on pre-bronchodilator values): -RV: Increased @ 209% -TLC: Increased @ 128% Diffusion capacity: -DLCO: Mild reduction @ 64% when corrected for Hb 16g/dL Comparison from 01/09/2024 PFT: -Improvement in FEV1 from 40% -No lung volumes were done -Essentially unchanged DLCO @ 65% Impressions: -Spirometry suggests severe obstruction. There is a positive bronchodilator response. An elevated RV and TLC suggest air trapping and hyperinflation respectively. There is a mildly reduced diffusion capacity. Overall study suggests COPD with a positive bronchodilator response vs. asthma-COPD overlap. Compared to prior PFT, there is slight improvement in spirometry, without any significant change in diffusion capacity. Clinical correlation required. Electronically Signed On 12-29-2024 11:39:40 EST by Gasper Sewell Dictated By: Gasper Sewell D.O. Signed By: 12/29/24 1139 DD/ 0849 TD/TT: Material Reclaimer: [place] [address] Respiratory Report Signed Patient: DARRIUS VAUGHAN MR#: [id number] : 1955 Acct:[id number] Age/Sex: 69 / M ADM Date: 12/28/24 Loc: LAB Attending Dr: MARIA ESTHER CORTES Ordering Physician: MARIA ESTHER CORTES Date of Service: 12/28/24 Procedure(s): RT pulmonary function test Accession Number(s): [id number] cc: [facility] Test Date: 2024-12-28 Pat Name: DARRIUS Kaur Department: 41 Room: - Gender: Male Cad Design Engineer: Rakesh Wagner RRT : 1955 Requested By: 358 Order Number: [id number] Reading MD: Gasper Sewell Interpretive Statements Pulmonary function testing was completed according to ATS criteria. Findings were considered accurate and reproducible, though it did not meet ATS standards given lack of 3 acceptable maneuvers. Both pre- and post-bronchodilator values utilized for spirometry. Spirometry (based on pre-bronchodilator values): -FEV1/FVC: Reduced @ 51% -FEV1: Severely redu delfino @ 47% -FVC: Reduced @ 69% -There is a positive bronchodilator response in FEV1 and FVC. Lung volumes by plethysmography (based on pre-bronchodilator values): -RV: Increased @ 209% -TLC: Increased @ 128% Diffusion capacity: -DLCO: Mild reductio n @ 64% when corrected for Hb 16g/dL Comparison from 01/09/2024 PFT: -Improvement in FEV1 from 40% -No lung volumes wer e done -Essentially unchang ed DLCO @ 65% Impressions: -Spirometry suggests severe obstruction. There is a positive bronchodilator response. An elevate d RV and TLC suggest air trapping and hyperinflation respectively. There is a mildly reduced diffusion capacity. Overall study suggests COPD with a positive bronchodilator response vs. asthma-COPD overlap. Compared to prior PFT, there is slight improvement in spirometry, without any signific ant change in diffusion capacity. Clinical correlation required. Electronically Siena d On 12-29-2024 11:39:40 EST by Gasper Sewell Dictated By: Gasper Sewell D.O. Signed By: 12/29/24 1139 DD/ 0849 TD/TT: Material Reclaimer: XR chest 2V Reviewed date:12/28/2024 08:06:45 PM Interpretation: Performing Lab: Notes/Report: Source Facility: [place] [address] [place] [address] XRay Report Signed Patient: DARRIUS VAUGHAN MR#: [id number] : 1955 Acct:[id number] Age/Sex: 69 / M ADM Date: 12/28/24 Loc: LAB Attending Dr: MARIA ESTHER CORTES Ordering Physician: MARIA ESTHER CORTES Date of Service: 12/28/24 Procedure(s): XR chest 2V Accession Number(s): [id number] cc: Tirso Mccormick M.D.; MARIA ESTHER CORTES [address] [address] Patient Name: DARRIUS VAUGHAN MRN: [facility]:[id number] date: 1955 Sex: M Assigned Patient Location: LAB Current Patient Location: LAB Accession/Order Number: [id number] Exam Date: 12/28/2024 10:18 Report Date: 12/28/2024 10:21 At the request of: MARIA ESTHER CORTES Procedure: XR chest 2V PA AND LATERAL CHEST: CLINICAL HISTORY: Atrial Flutter, High Risk Medication COMPARISON: 01/09/2024 The lungs are hyperinflated. Granulomatous changes are seen. There is no focal parenchymal consolidation, effusion or pneumothorax. The cardiac, hilar and mediastinal silhouettes are within normal limits. There is no vascular congestion. An old right rib fractures again noted. There is subtle dextroscoliotic curvature as well as endplate spurring. XR/XR chest 2V IMPRESSION: NO ACUTE CARDIOPULMONARY ABNORMALITY. Impression dictated by: Nikki Gleason M.D.12/28/2024 10:21 AM Dictation Location: [place] [address] Electronically authenticated by: [id number] Y Date: 12/28/2024 10:21 Dictated By: Nikki Gleason M.D. Signed By: 12/28/24 1024 DD/ 1021 TD/TT: Material Reclaimer: [place] [address] XRay Report Signed Patient: DARRIUS VAUGHAN MR#: [id number] : 1955 Acct:[id number] Age/Sex: 69 / M ADM Date: 12/28/24 Loc: LAB Attending Dr: MARIA ESTHER CORTES Ordering Physician: MARIA ESTHER CORTES Date of Service: 12/28/24 Procedure(s): XR sandoval st 2V Accession Number(s): [id number] cc: Tirso Mccormick M.D. ; MARIA ESTHER CORTES [address] [address] Patient Name: DARRIUS VAUGHAN MRN: [facility]:[id number] date: 1955 Sex: M Assigned Patient Location: LAB Current Patient Location: LAB Accession/Order Numb er: [id number] Exam Date: 12/28/2024 10:18 Report Date: 12/28/2024 10:21 At the request of: MARIA ESTHER CORTES Procedure: XR chest 2V PA AND LATERAL CHEST: CLINICAL HISTORY: Atrial Flutter, High Risk Medication COMPARISON: 01/09/2024 The lungs are hyperinflated. Granulomatous changes are seen. There is no focal parenchymal consolidation, effusion or pneumothorax. The cardiac, hilar and mediastina l silhouettes are within normal limits. There is no vascular congestion. An old right rib fractures again noted. There is subtle dextroscoliot ic curvature as well as endplate spurring. XR/XR chest 2V IMPRESSION: NO ACUTE CARDIOPULMONARY ABNORMALITY. Impression dictated by: Nikki Gleason M.D.12/28/2024 10:21 AM Dictation Location: [place] [address] Electronically authenticated by: [id number] Y Date: 12/28/2024 10:21 Dictated By: Nikki Gleason M.D. Signed By: 12/28/24 1024 DD/ 1021 TD/TT: Material Reclaimer: right upper quadrant Reviewed date:03/17/2025 07:08:53 PM Interpretation: Performing Lab: Notes/Report: Source Facility: [place] [address] [place] [address] Ultrasound Report Signed Patient: DARRIUS VAUGHAN MR#: [id number] : 1955 Acct:[id number] Age/Sex: 69 / M ADM Date: 03/17/25 Loc: US Attending Dr: Tirso Mccormick M.D. Ordering Physician: Tirso Mccormick M.D. Date of Service: 03/17/25 Procedure(s): US right upper quadrant Accession Number(s): [id number] cc: Tirso Mccormick M.D. [place] [address] Patient Name: DARRIUS VAUGHAN MRN: [id number] date: 1955 Sex: M Assigned Patient Location: US Current Patient Location: US Accession/Order Number: [id number] Exam Date: 03/17/2025 10:10 Report Date: 03/17/2025 10:13 At the request of: TIRSO MCCORMICK MD Procedure: US right upper quadrant EXAMINATION TYPE: US right upper quadrant DATE OF EXAM ORDERED: 03/17/2025 9:18 AM HISTORY: Abnormal Liver Enzymes, history of cholecystectomy COMPARISON: NONE TECHNIQUE: Realtime imaging limited to the right upper quadrant was performed. FINDINGS: The gallbladder has been previously removed. Common bile duct measures 3 mm in diameter. No intrahepatic or extrahepatic biliary dilatation is seen. The liver is normal in echo reflectivity. The liver is echogenic in respect to the right renal cortex suggesting hepatic steatosis. Hepatopedal flow is noted in the main portal vein. Partial visualization of the right kidney reveals no gross hydronephrosis. Partial visualization of the pancreas reveals no abnormality. US/US right upper quadrant IMPRESSION: Status post cholecystectomy. No intrahepatic or extrahepatic biliary ductal dilatation. Findings suggest hepatic steatosis. Impression dictated by: Donte Manzanares M.D. 03/17/2025 10:13 AM Dictation Location: [place] [address] Electronically authenticated by: [id number] Y Date: 03/17/2025 10:13 Dictated By: Donte Manzanares M.D. Signed By: 03/17/25 1016 DD/ 1013 TD/TT: Material Reclaimer: [place] [address] Ultrasound Report Signed Patient: DARRIUS VAUGHAN MR#: [id number] : 1955 Acct:[id number] Age/Sex: 69 / M ADM Date: 03/17/25 Loc: US Attending Dr: Gabriella Mccormick M.D. Ordering Physician: Tirso Mccormick M.D. Date of Service: 03/17/25 Procedure(s): US rig ht upper quadrant Accession Number(s): [id number] cc: Tirso Mccormick M.D. [place] [address] Patient Name: DARRIUS VAUGHAN MRN: [id number] date: 1955 Sex: M Assigned Patient Location: US Current Patient Location: US Accession/Order Numb er: [id number] Exam Date: 03/17/2025 10:10 Report Date: 03/17/2025 10:13 At the request of: TIRSO MCCORMICK MD Procedure: US right upper quadrant EXAMINATION TYPE: US right upper quadrant DATE OF EXAM ORDERED : 03/17/2025 9:18 AM HISTORY: Abnormal Li татьяна Enzymes, history of cholecystectomy COMPARISON: NONE TECHNIQUE: Realtime imaging limited to the right upper quadrant was performed. FINDINGS: The gallbladder has been previously removed. Common bile duct measures 3 mm in diameter. No intrahepatic or extrahepatic biliary dilatation is seen. The liver is normal in e cho reflectivity. The liver is echogenic in respect to the right renal daniela ex suggesting hepatic steatosis. Hepatopedal flow is noted in the main portal vein. Partial visualization of the right kidney reveals no gross hydronephrosis. Partial visualization of the pancreas reveals no abnormality. US/US right upper quadrant IMPRESSION: Status post cholecystectomy. No intrahepatic or extrahepatic biliary ductal dilatation. Findings suggest hepatic steatosis. Impression dictated by: Donte Manzanares M.D. 03/17/2025 10:13 AM Dictation Location: [place] [address] Electronically authenticated by: [id number] Y Date: 03/17/2025 10:13 Dictated By: Donte Manzanares M.D. Signed By: 03/17/25 1016 DD/ 1013 TD/TT: Material Reclaimer: TSH Reviewed date:07/28/2024 12:15:10 PM Interpretation: Performing Lab: Notes/Report: [facility] , Thyroid Stimulating Hormone 2.950 0.358-3.740 uIU/mL Performing Lab: see note ML - [facility] LB SGPT Reviewed date:07/28/2024 12:15:10 PM Interpretation: Performing Lab: Notes/Report: [facility] , Alanine Aminotransferase 167 16-63 U/L Performing Lab: see note - [facility] LB PROF CHEM 8 (BAS METB) Reviewed date:07/28/2024 12:15:10 PM Interpretation: Performing Lab: Notes/Report: [facility] , Sodium 137 136-145 mmol/L Potassium 4.5 3.5-5.1 mmol/L Chloride 102 98-107 mmol/L Carbon Dioxide 30.5 21.0-32.0 mmol/L Anion Gap 9.0 Glucose 127 74-106 mg/dL Blood Urea Nitrogen 15.0 7.0-18.0 mg/dL Creatinine 1.01 0.70-1.30 mg/dL Estimated GFR ( Mary >60 >=60 Estimated GFR (Non- Debby >60 >=60 BUN Creatinine Ratio 14.9 Calcium 9.1 8.5-10.1 mg/dL Performing Lab: see note ML - [facility] LB TSH Reviewed date:04/08/2024 12:29:19 PM Interpretation: Performing Lab: Notes/Report: [facility] , Thyroid Stimulating Hormone 3.271 0.358-3.740 uIU/mL Performing Lab: see note ML - [facility] LB T4 Reviewed date:04/08/2024 12:29:19 PM Interpretation: Performing Lab: Notes/Report: [facility] , T4 Thyroxine 11.60 4.50-12.10 ug/dL Performing Lab: see note ML - [facility] LB PROF 14(COMP METB) Reviewed date:04/08/2024 12:29:19 PM Interpretation: Performing Lab: Notes/Report: [facility] , Sodium 138 136-145 mmol/L Potassium 4.5 3.5-5.1 mmol/L Chloride 102 98-107 mmol/L Carbon Dioxide 29.8 21.0-32.0 mmol/L Anion Gap 10.7 Glucose 137 74-106 mg/dL Blood Urea Nitrogen 11.0 7.0-18.0 mg/dL Creatinine 0.91 0.70-1.30 mg/dL Estimated GFR ( Mary >60 >=60 Estimated GFR (Non- Debby >60 >=60 BUN Creatinine Ratio 12.1 Calcium 8.9 8.5-10.1 mg/dL Bilirubin Total 0.7 0.2-1.0 mg/dL Aspartate Amino Transferase 75 15-37 U/L Alanine Aminotransferase 123 16-63 U/L Alkaline Phosphatase 51 46-116 U/L Total Protein 7.5 6.4-8.2 g/dL Albumin Level 3.6 3.4-5.0 g/dL Globulin 3.9 Albumin Globulin Ratio 0.9 Performing Lab: see note ML - [facility] FREE T3 Reviewed date:04/08/2024 12:29:19 PM Interpretation: Performing Lab: Notes/Report: [facility] , Free T3 2.06 2.18-3.98 pg/mL Performing Lab: see note ML - [facility] UA (Urinalysis, Dipstix only - w/o micro) [...] ESTERASE (EMMANUEL) - NEG - NEG MG/DL TSH Reviewed date:03/14/2025 05:59:38 PM Interpretation: Performing Lab: Notes/Report: [facility] , Thyroid Stimulating Hormone 3.164 0.358-3.740 uIU/mL Performing Lab: see note ML - [facility] T4 Reviewed date:03/14/2025 05:59:38 PM Interpretation: Performing Lab: Notes/Report: [facility] , T4 Thyroxine 12.50 4.50-12.10 ug/dL Performing Lab: see note ML - [facility] PSA SCREENING Reviewed date:03/14/2025 05:59:38 PM Interpretation: Performing Lab: Notes/Report: [facility] , Prostate Specific Antigen Scrn 1.19 <=4.00 ng/mL Performing Lab: see note ML - [facility] PROF 14(COMP METB) Reviewed date:03/14/2025 05:59:38 PM Interpretation: Performing Lab: Notes/Report: [facility] , Sodium 136 136-145 mmol/L Potassium 4.5 3.5-5.1 mmol/L Chloride 100 98-107 mmol/L Carbon Dioxide 26.7 21.0-32.0 mmol/L Anion Gap 13.8 Glucose 137 74-106 mg/dL Blood Urea Nitrogen 13.0 7.0-18.0 mg/dL Creatinine 0.99 0.70-1.30 mg/dL Estimated GFR ( Mary >60 >=60 mL/min/1.73m 2 Estimated GFR (Non- Debby >60 >=60 mL/min/1.73m 2 BUN Creatinine Ratio 13.1 Calcium 9.0 8.5-10.1 mg/dL Bilirubin Total 1.1 0.2-1.0 mg/dL Aspartate Amino Transferase 101 15-37 U/L Alanine Aminotransferase 149 16-63 U/L Alkaline Phosphatase 55 46-116 U/L Total Protein 7.8 6.4-8.2 g/dL Albumin Level 3.9 3.4-5.0 g/dL Globulin 3.9 Albumin Globulin Ratio 1.0 Performing Lab: see note ML - [facility] LIPID PROFILE Reviewed date:03/14/2025 05:59:38 PM Interpretation: Performing Lab: Notes/Report: [facility] , Triglycerides 67 <=150 mg/dL Cholesterol 200 <=200 mg/dL HDL Cholesterol 80 40-60 mg/dL <40 mg/dl - HIGH CARDIOVASCULAR RISK > or =60 mg/dl - LOW CARDIOVASCULAR RISK LDL Cholesterol Calculated 107.0 100-129 mg/dl NEAR OR ABOVE OPTIMAL >190 mg/dl VERY HIGH 130-159 mg/dl BORDERLINE HIGH <100 mg/dl OPTIMAL 160-189 mg/dl HIGH VLDL CHOLESTEROL 13.4 Chol HDL Ratio 2.5 4.4 - 7.1 AVERAGE RISK 7.1 - 11.0 MODERATE RISK >11.0 HIGH RISK 3.3 - 4.4 LOW RISK Performing Lab: see note ML - [facility] GLYCOHEMOGLOBIN A1C Reviewed date:03/14/2025 05:59:38 PM Interpretation: Performing Lab: Notes/Report: [facility] , Glycohemoglobin A1C 6.3 4.5-6.2 % > 7.0 ACTION SUGGESTED ADA THERAPEUTIC TARGET < 7.0 ADA RECOMMENDED LIMIT 4.0 - 6.0 Estimated Average Glucose 134 Performing Lab: see note ML - [facility] FREE T3 Reviewed date:03/14/2025 05:59:38 PM Interpretation: Performing Lab: Notes/Report: [facility] , Free T3 2.23 2.18-3.98 pg/mL Performing Lab: see note ML - [facility] LB CBC AUTO DIFF Reviewed date:03/14/2025 05:59:38 PM Interpretation: Performing Lab: Notes/Report: [facility] , White Blood Count 5.0 4.0-11.0 10 3/uL Red Blood Count 5.10 4.70-6.10 10 6/uL Hemoglobin 15.9 14.0-18.0 g/dL Hematocrit 46.5 42.0-54.0 % Mean Corpuscular Volume 91.2 80.0-94.0 fL Mean Corpuscular Hemoglobin 31.2 25.9-34.0 pg Mean Corpuscular HGB Conc 34.2 29.9-35.2 g/dL Red Cell Distribution Width 12.5 11.0-15.0 % Platelet Count 228 150-450 10 3/uL Mean Platelet Volume 10.0 9.5-13.5 fL Neutrophils Percent Auto 62.2 43.0-75.0 % Lymphocytes Percent Auto 19.7 20.5-60.0 % Monocytes Percent Auto 12.3 1.7-12.0 % Eosinophils Percent Auto 3.8 0.9-7.0 % Basophils Percent Auto 1.6 0.2-2.0 % Immature Granulocytes Pct Auto 0.4 0.0-0.5 % Neutrophils Absolute Auto 3.1 1.4-6.5 10 3/uL Lymphocytes Absolute Auto 1.0 1.2-3.8 10 3/uL Monocytes Absolute Auto 0.6 0.3-0.8 10 3/uL Eosinophils Absolute Auto 0.2 0.0-0.7 10 3/uL Basophils Absolute Auto 0.1 0.0-0.1 10 3/uL Immature Granulocytes Abs Auto 0.02 0.00-0.03 10 3/uL Performing Lab: see note ML - [facility] LB BNP Reviewed date:03/14/2025 05:59:38 PM Interpretation: Performing Lab: Notes/Report: [facility] , NT Pro B Type Natriuretic Pept 61.0 <=900.0 pg/mL Performing Lab: see note ML - [facility] LB Reason For Referral No Information Medications Medication SIG (Take, Route, Frequency, Duration) Notes Start Date End Date Status Pravastatin Sodium 40 MG Oral for 90 Days Active PreserVision AREDS A ctive Spironolactone 25 MG TAKE 1/2 TABLET BY MOUTH EVERY DAY for 90 days Active Tamsulosin HCl 0.4 MG TAKE 1 CAPSULE BY MOUTH EVERY DAY for 90 Active Amiodarone HCl 200 MG Oral for 90 Days Active Aspirin 81 81 MG 1 tablet Orally once a week Active Lancets 33G - use 1 lancet Dx: E11 .9 once daily for 90 days 07/24/2023 Active Pantoprazole Sodium 40 MG TAKE 1 TABLET BY MOUTH EVERY DAY for 90 Active Levothyroxine Sodium 50 MCG 1 tablet in the morning on an empty stomach Orally Once a day for 30 days 03/16/2025 Active Xarelto 20 MG 1 tablet Orally Once a day for 90 days Active Social History Tobacco Use: Social History Observation Description Date Details (start date - stop date) Former Smoker 04/04/1968 - 11/04/2020 Tobacco Use/Smoking Question Answer Notes Patient is a former smoker When did you start smoking? 04/04/1968 When did you stop smoking? 11/04/2020 How long has it been since you last smoked? 1-5 years Additional Findings: Tobacco Non-User Ex-cigaret te smoker Alcohol Screen (Audit-C) Question Answer Notes Did you have a drink contain ing alcohol in the past year? Yes How often did you have 6 or more drinks on one occasion in the past year? Never (0 point) How many drinks did you have on a typical day when you were drinking in the past year? 3 or 4 drinks (1 point) How often did you have a dri nk containing alcohol in the past year? Weekly (3 points) Points 4 Interpretation Positive AUDIT-C (Standard) Question Answer Notes Did you have a drink contain ing alcohol in the past year? Yes How often did you have a dri nk containing alcohol in the past year? Daily or almost daily (4 points) How many drinks did you have on a typical day when you were drinking in the past year? 5 or 6 drinks (2 points) How often did you have six o r more drinks on one occasion in the past year? 4 or more times a week (4 points) Points 10 Interpretation Positive Problems Problem Type SNOMED Code ICD Code Onset Dates Problem Status W/U Status Risk Notes Problem 5139631 Essential (primary) hypertension (I10) Active confirmed Problem 44644422 Chronic obstructive pulmonary disease, unspecified (J44.9) Active confirmed Problem 1783197 Unspecified atri al flutter (I48.92) Active confirmed Problem 872251701 Diverticulosis o f large intestine without perforation or abscess without bleeding (K57.30) Active confirmed Problem Atrial flutter (6384953) Atrial flutter (I48.92) Active confirmed Problem Hyperlipidaemia (08001974) Hyperlipemia (E78.5) Active confirmed Problem 375658585 Dyslipidemia (E78.5) Active confirmed Problem Hypothyroid (67813219) Hypothyroid (E03.9) Active confirmed Problem Impacted cerumen (27614746) Cerumen impaction (H61.20) Active confirmed Problem Acute bronchitis (35274597) Acute bronchitis (J20.9) Active confirmed Problem Fatty liver (952046779) Fatty liver (K76.0) Active confirmed Problem Hyperthyroidism (34124926) Hyperthyroidism (E05.90) Active confirmed Problem Acute sinusitis (34798658) Acute sinus infection (J01.90) Active confirmed Problem Acute bronchiolitis (9504929) Acute bronchiolitis (J21.9) Active confirmed Problem 16531036 Type 2 diabetes mellitus with hyperglycemia, without long-term current use of insulin (E11.65) Active confirmed Vital Signs Temperature 97.0 degrees Fahrenheit 01/11/2025 Blood pressure diastolic 74 mm Hg 03/04/2025 Height 72 in 03/04/2025 Blood pressure systolic 110 mm Hg 03/04/2025 Weight 220.8 lbs 03/04/2025 BMI 29.94 kg/m2 03/04/2025 Encounters Encounter Location Date Provider Diagnosis [facility] [place] [address] [place] [address] 11/12/2024 Jim Hoy Acute bronchitis, unspecified organism J20.9 [facility] [place] [address] [place] [address] 01/11/2025 Jim Hoy Acute non-recurrent sinusitis, unspecified location J01.90 and Nasal congestion R09.81 [facility] [place] [address] [place] [address] 03/04/2025 Jim Hoy Type 2 diabetes mellitus with hyperglycemia, without long-term current use of insulin E11.65 ; Essential (primary) hypertension I10 and Hypothyroid E03.9 [facility] [address] [place] [address] 03/23/2025 Jim Hoy Flank pain R10.9 [facility] [address] [place] [address] 04/08/2024 TIRSO HOY [facility] [address] [facility] [place] [address] 07/20/2024 Jim Hoy [facility] [address] [place] [address] 07/28/2024 Jim Hoy Type 2 diabetes mellitus with hyperglycemia, without long-term current use of insulin E11.65 [facility] [address] [facility] [place] [address] 11/16/2024 Jim Hoy Acute bronchitis, unspecified organism J20.9 [facility] [address] [facility] [place] [address] 03/14/2025 Jim Hoy Abnormal thyroid blo od test R94.6 [facility] [address] [place] [address] 03/16/2025 Jim Francoy [facility] [address] [facility] [place] [address] 03/17/2025 Jim Hoy [facility] [address] [place] [address] 03/23/2025 Jim Hoy [facility] [address] [facility] [place] [address] 03/24/2025 Jim Hoy Flank pain R10.9 Assessments Encounter Date Diagnosis (ICD Code) Assessment Notes Treatment Notes Treatment Clinical Notes Section Notes 11/12/2024 Acute bronchitis, unspecified organism (ICD-10 - J20.9) Rest and drink more liquids, especially water. You may use a humidifier or vaporizer to help keep the drainage moist. Ruqp-skl-hepigqr Nasal Saline may help the stuffy and runny nose. Use Ibuprofen and or Tylenol as needed for fever, chills, body aches or pain. Children 5 years old should not be given bebf-gma-zncuucd cough and cold medications such as guaifenesin and dextromethorphan. If you're over age 5, you may try mdbw-edj-xcbyuiy cold medications such as guaifenesin and dextromethorphan, or multi-symptom cold reliever such as Dayquil to help reduce the symptoms. Antibiotics have been prescribed. You should take these until completed and follow the directions. Antibiotics can sometimes cause upset stomach, and in rare cases, serious allergic reactions or serious gastrointestinal problems. If you start having severe abdominal pain, severe vomiting, or bloody diarrhea, you should be reevaluated by your physician or urgent care immediately. Follow up with your Primary Care Provider or return to clinic if symptoms do not improve within 3-5 days. If you develop severe symptoms such as shortness of breath, repeated vomiting, coughing up blood, or chest pain you should go to the emergency room or call 911 CancelRx Response got Denied on 2024-11-16 12:54:40 for 'Azithromycin 250 MG Tablet'Pharmacy Notes: Prescription not found. Contact Pharmacy by other means 01/11/2025 Acute non-recurrent sinusitis, unspecified location (ICD-10 - J01.90) Rest and drink more liquids, especially water. You may use a humidifier or vaporizer to help keep the drainage moist. Ruix-teg-elmxwhg Nasal Saline may help the stuffy and runny nose. Use Ibuprofen and or Tylenol as needed for fever, chills, body aches or pain. Children 5 years old should not be given kakr-aak-bmshqbz cough and cold medications such as guaifenesin and dextromethorphan. If you're over age 5, you may try gwed-lns-qjovpcu cold medications such as guaifenesin and dextromethorphan, or multi-symptom cold reliever such as Dayquil to help reduce the symptoms. Antibiotics have been prescribed. You should take these until completed and follow the directions. Antibiotics can sometimes cause upset stomach, and in rare cases, serious allergic reactions or serious gastrointestinal problems. If you start having severe abdominal pain, severe vomiting, or bloody diarrhea, you should be reevaluated by your physician or urgent care immediately. Follow up with your Primary Care Provider or return to clinic if symptoms do not improve within 3-5 days 03/04/2025 Type 2 diabetes mellitus with hyperglycemia, without long-term current use of insulin (ICD-10 - E11.65) 03/04/2025 Essential (primary) hypertension (ICD-10 - I10) 07/28/2024 Type 2 diabetes mellitus with hyperglycemia, without long-term current use of insulin (ICD-10 - E11.65) 11/16/2024 Acute bronchitis, unspecified organism (ICD-10 - J20.9) 03/14/2025 Abnormal thyroid blood test (ICD-10 - R94.6) 03/24/2025 Flank pain (ICD-10 - R10.9) 03/23/2025 Flank pain (ICD-10 - R10.9) 03/04/2025 Hypothyroid (ICD-10 - E03.9) 01/11/2025 Nasal congestion (ICD-10 - R09.81) Plan Of Treatment Pending Test Test Name Order Date EAR IRRIGATION 03/12/2024 CMP (COMPLETE METABOLIC PANEL) 4 HEMOGLOBIN A1C (GLYCO) 03/04/2025 HEMOGLOBIN A1C (GLYCO) 02/04/2023 LIPID PANEL (CHOL/TRIG/HDL/LDL) 02/05/20 23 LIPID PANEL (CHOL/TRIG/HDL/LDL) 03/04/20 25 PSA, PROSTATE-SPECIFIC ANTIGEN 4 CT Abdomen and Pelvis w/o contrast 03/24 CLOSTRIDIUM DIFFICILE TOXIN 05/02/2023 COMPREHENSIVE METABOLIC PROFILE WITH GFR 03/11/2024 OCCULT BLOOD, FECAL, IMMUNOASSAY 024 INFLUENZA A and B, NASAL/NASOPHARYNGEAL (PCR) 03/05/2024 CBC W/AUTO DIFF 03/11/2024 SARS COVID-2 NASAL - PCR 03/05/2024 US Abdomen - Limited 03/14/2025 STOOL OCCULT BLOOD 03/11/2024 BNP 03/04/2025 Covid-19 PCR (CVDTBH) 07/09/2023 GLYCOHEMOGLOBIN A1C 01/07/2024 THYROID PANEL (T4/TSH/FREE T3) 4 THYROID PANEL (T4/TSH/FREE T3) 5 THYROID PANEL (T4/TSH/FREE T3) 4 THYROID PANEL (T4/TSH/FREE T3) 4 THYROID PANEL (T4/TSH/FREE T3) 5 THYROID PANEL (T4/TSH/FREE T3) 4 PSA, SCREENING 03/04/2025 PSA, SCREENING 01/07/2024 Lipid Panel 01/07/2024 CMP (COMP MET TSE) w/eGFR CKD-EPI 2024 CBC WITH DIFF 03/04/2025 Insurance Providers Payer Name Payer Address Payer Phone Subscriber Number Group Number Insured Name Patient Relationship to Insured Coverage Start Date Coverage End Date MEDICARE [place] [address] [phone] [id number] GómezDarrius polanco Self - patient is the insured 9 [employer] SUPPLEMENTAL INSURANCE [address] [address] [place] [address] [id number] Darrius Vaughan Self - patient is the insured 9 Medications Administered Medication Instructions Date of Administration Dosage Notes Dexamethasone, 4mg/mL 07/09/2023 8 mg 8 m g Medical (General) History Medical History History ICD Code COVID-19 U07.1 Atrial flutter I48.92 Heart rate fast R00.0 Capillary hemangioma D18.00 Acute eczema L30.9 Hypotension I95.9 Furuncle of abdominal wall L02.221 Hypercholesteremia E78.00 Prostatitis N41.9 Controlled diabetes mellitus with hyperg lycemia E11.65 Bilateral plantar fasciitis M72.2 Age-related nuclear cataract of both eye s H25.13 Secondary pigmentary degeneration, 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
--- OUTSIDE RECORDS SUMMARY | 2025-03-25 13:28 | XMS_ITS | Encounter Summary ---
Author Organization [facility] Address [address] [place] [address] Phone Care Team Providers Care Carbonizer Tester Name Role Phone Ej Frausto MD Primary Care Provider [phone] Encounter Details Date Type Department Care Team (Late st Contact Info) Description 05/27/2024 Scanned Document [facility] [address] [place] [address] Scanning, Generic Provider Social History Tobacco Use [...] Description 08/25/2025 11:10 AM EDT Office Visit [facility] [address] [facility] [address] [place] [address] Marcus Recinos MD 703 [facility] 2, [address] [place], [place] [id number] documented as of this encounter Procedures Procedure Name Priority Date/Time Associated Diagnosis Comments OUTSIDE IMAGING SCAN 05/27/2024 documented in this encounter Results * OUTSIDE IMAGING SCAN (05/27/2024) Anatomical Region Laterality Modality Other Narrative 05/27/2024 Ordered by an unspecified provider. us Generic Provider Scanning OUTSIDE SCAN Final Result documented in this encounter Visit Diagnoses Not on filedocumented in this encounter Additional Health Concerns Assessment Noted Time A fall risk assessment has been complete d for the patient 12/04/2023 9:04 AM EST documented as of this encounter Care Teams Carbonizer Tester Relationship Specialty Start Date End Date Ej Frausto MD [address] [place] [address] PCP - General 11/04/99 documented as of this encounter
--- OUTSIDE RECORDS SUMMARY | 2025-03-25 13:28 | XMS_ITS | Encounter Summary ---
Author Organization [facility] Address [address] [place] [address] Phone Care Team Providers Care Cow Rider Name Role Phone Ej Frausto MD Primary Care Provider [phone] Encounter Details Date Type Department Care Team (Late st Contact Info) Description 01/23/2022 Orders Only [facility] [address] [place] [address] Conversion, Onbase Social History Tobacco Use Types [...] Description 08/25/2025 11:10 AM EDT Office Visit [place] [address] [facility] [address] [place] [address] Marcus Recinos MD 703 [facility] 2, [address] [place] [address] Scheduled Orders Name Type Priority Associated Diagnoses Orde r Schedule OUTSIDE LAB SCAN Lab Ordered: 01/23/2022 documented as of this encounter Visit Diagnoses Not on filedocumented in this encounter Care Teams Cow Rider Relationship Specialty Start Date End Date Ej Frausto MD [address] [facility] [place] [address] PCP - General 11/04/99 documented as of this encounter
--- OUTSIDE RECORDS SUMMARY | 2025-03-25 13:28 | XMS_ITS | Encounter Summary ---
Author Organization [facility] Address [address] [place] [address] Phone Care Team Providers Care High School Business Teacher Name Role Phone Ej Frausto MD Primary Care Provider [phone] Encounter Details Date Type Department Care Team (Late st Contact Info) Description 01/21/2022 Orders Only [facility] [address] [place] [address] Conversion, Onbase Social History Tobacco Use Types [...] Description 08/25/2025 11:10 AM EDT Office Visit [place] [address] [facility] [address] [place] [address] Marcus Recinos MD 703 [facility] 2, [facility] [address] [place] [address] Scheduled Orders Name Type Priority Associated Diagnoses Orde r Schedule OUTSIDE LAB SCAN Lab Ordered: 01/21/2022 documented as of this encounter Visit Diagnoses Not on filedocumented in this encounter Care Teams High School Business Teacher Relationship Specialty Start Date End Date Ej Frausto MD [address] [facility] [place] [address] PCP - General 11/04/99 documented as of this encounter
--- OUTSIDE RECORDS SUMMARY | 2025-03-25 13:28 | XMS_ITS | Encounter Summary ---
Author Organization [facility] Address [address] [place] [address] Phone Care Team Providers Care Entry Specialists Name Role Phone Ej Frausto MD Primary Care Provider [phone] Encounter Details Date Type Department Care Team (Late st Contact Info) Description 05/28/2024 Scanned Document [facility] [address] [place] [address] Scanning, Generic Provider Social History Tobacco Use [...] Description 08/25/2025 11:10 AM EDT Office Visit [facility] 703 [facility] [address] [place] [address] Marcus Recinos MD 703 [facility] 2, [address] [place] [address] documented as of this encounter Visit Diagnoses Not on filedocumented in this encounter Additional Health Concerns Assessment Noted Time A fall risk assessment has been complete d for the patient 12/04/2023 9:04 AM EST documented as of this encounter Care Teams Entry Specialists Relationship Specialty Start Date End Date Ej Frausto MD [address] [place] [address] PCP - General 11/04/99 documented as of this encounter
--- OUTSIDE RECORDS SUMMARY | 2025-03-25 13:29 | XMS_ITS | Encounter Summary ---
Author Organization [facility] Address [address] [place] [address] Phone Care Team Providers Care Squaring Shear Operator Name Role Phone Ej Frausto MD Primary Care Provider [phone] Encounter Details Date Type Department Care Team (Late st Contact Info) Description 07/16/[address] [facility] [address] [place] [address] Conversion, Onbase Social History Tobacco Use Types [...] Description 08/25/2025 11:10 AM EDT Office Visit [place] [address] [facility] [address] [place] [address] Marcus Recinos MD 703 [facility] 2, [facility] [address] [place] [address] Scheduled Orders Name Type Priority Associated Diagnoses Orde r Schedule OUTSIDE LAB SCAN Lab Ordered: 07/16/2023 documented as of this encounter Visit Diagnoses Not on filedocumented in this encounter Care Teams Squaring Shear Operator Relationship Specialty Start Date End Date Ej Frausto MD [address] [place] [address] PCP - General 11/04/99 documented as of this encounter
--- OUTSIDE RECORDS SUMMARY | 2025-03-25 13:29 | XMS_ITS | Encounter Summary ---
Author Organization [facility] Address [address] [place] [address] Phone Care Team Providers Care Hospitalist Nocturnist Physician Name Role Phone Ej Frausto MD Primary Care Provider [phone] Encounter Details Date Type Department Care Team (Late st Contact Info) Description 12/28/2024 Scanned Document [facility] [address] [place] [address] Scanning, Generic Provider Social History Tobacco Use [...] Description 08/25/2025 11:10 AM EDT Office Visit [facility] [address] [facility] [address] [place] [address] Marcus Recinos MD 703 [facility] 2, [address] [place], [place] [address] documented as of this encounter Procedures Procedure Name Priority Date/Time Associated Diagnosis Comments OUTSIDE IMAGING SCAN 12/28/2024 OUTSIDE LAB SCAN 12/28/2024 documented in this encounter Results * OUTSIDE LAB SCAN (12/28/2024) Narrative 12/28/2024 Ordered by an unspecified provider. us Generic Provider Scanning OUTSIDE SCAN Final Result * OUTSIDE IMAGING SCAN (12/28/2024) Anatomical Region [...] documented as of this encounter Care Teams Hospitalist Nocturnist Physician Relationship Specialty Start Date End Date Ej Frausto MD [address] [place] [address] PCP - General 11/04/99 documented as of this encounter
--- OUTSIDE RECORDS SUMMARY | 2025-03-25 13:29 | XMS_ITS | Encounter Summary ---
Author Organization [facility] Address [address] [place] [address] Phone Care Team Providers Care Box Sorter Name Role Phone Ej Frausto MD Primary Care Provider Encounter Details Date Type Department Care Team ([facility] st Contact Info) Description 03/22/[address] [address] Jade Flores CMA Social History Tobacco Use Types Packs/Day Years [...] AM EDT documented as of this encounter Miscellaneous Notes * Telephone Encounter - Jade Flores CMA - 03/22/2025 11:55 AM EDT Result Communication Resulted Orders Vascular US Abdominal Aorta Aneurysm AAA Screening Narrative [address], [address], [place], [place] [address] Vascular Lab Report VASC US ABDOMINAL AORTA ANEURYSM AAA SCREENING Patient Name: REMEDIOS Black Physician: [id number] Maria Esther Recinos MD, [facility] Study Date: 03/18/2025 Ordering Provider: [id number] MARIA ESTHER RECINOS MRN/PID: [id number] Fellow: Technologist: Yadira Atkins RDCS, RVT Date of /Age: 12 1955 / 69 years Technologist 2: Gender: M Admission Status: Outpatient Location Performed: [facility] Diagnosis/ICD: Essential primary hypertension-I10; Personal history of tobacco use-Z87.891 Indication: Hyperlipidemia, Atrial Flutter, COPD CPT Codes: 80598 Ultrasound, abdominal aorta, real time with image documentation, screening study for (AAA) CONCLUSIONS: Imaging & Doppler Findings: AORTA AP Lateral Distal 2.53 cm 2.44 cm 36676 Maria Esther Recinos MD, FACC Final 11:55 AM Results were successfully communicated with the child and they acknowledged their understanding. * Telephone Encounter - Jade Flores CMA - 03/22/2025 11:55 AM EDT ----- Message from Maria Esther Recinos sent at 03/21/2025 9:44 AM EDT ----- Let him know there is no aneurysm ----- Message ----- From: Interface, Syngo - Cardiology Results In Sent: 03/20/2025 4:43 PM EDT To: Maria Esther Recinos MD documented in this encounter Plan of Treatment Upcoming Encounters Date Type Department Care Team (Late st Contact Info) Description 08/25/2025 11:10 AM EDT Office Visit [facility] [address] [facility] [address] [place] [address] Maria Esther Recinos MD 703 [facility] 2, [address] [place] [address] documented as of this encounter Visit Diagnoses Not on filedocumented in this encounter Additional Health Concerns Assessment Noted Time A fall risk assessment has been complete d for the patient 01/06/2025 1:21 PM EST documented as of this encounter Care Teams Box Sorter Relationship Specialty Start Date End Date Ej Frausto MD [address] [place] [address] PCP - General 11/04/99 documented as of this encounter
--- OUTSIDE RECORDS SUMMARY | 2025-03-25 13:29 | XMS_ITS | Encounter Summary ---
Author Organization [facility] Address [address] [place] [address] Phone Care Team Providers Care School Cafeteria Head Cook Name Role Phone Ej Frausto MD Primary Care Provider [phone] Encounter Details Date Type Department Care Team (Late st Contact Info) Description 11/26/2022 Orders Only [facility] [address] [place] [address] Conversion, Onbase Social History Tobacco Use Types [...] Description 08/25/2025 11:10 AM EDT Office Visit [place] [id number] [facility] 250 [place] [address] Marcus Recinos MD 703 [facility] 2, [facility] 250 [place] [address] Scheduled Orders Name Type Priority Associated Diagnoses Orde r Schedule OUTSIDE LAB SCAN Lab Ordered: 11/26/2022 documented as of this encounter Visit Diagnoses Not on filedocumented in this encounter Care Teams School Cafeteria Head Cook Relationship Specialty Start Date End Date Ej Frausto MD [address] [facility] [place] [address] PCP - General 11/04/99 documented as of this encounter
--- OUTSIDE RECORDS SUMMARY | 2025-03-25 13:29 | XMS_ITS | Encounter Summary ---
Author Organization [facility] Address [address] [place] [address] Phone Care Team Providers Care Underwriting Operations Manager Name Role Phone Ej Frausto MD Primary Care Provider [phone] Encounter Details Date Type Department Care Team (Late st Contact Info) Description 03/08/2023 Orders Only [facility] [address] [place] [address] Conversion, Onbase Social History Tobacco Use Types [...] Description 08/25/2025 11:10 AM EDT Office [place] [address] [facility] [address] [place] [address] Marcus Recinos MD 703 [facility] 2, [facility] 250 [place] [address] Scheduled Orders Name Type Priority Associated Diagnoses Orde r Schedule OUTSIDE LAB SCAN Lab Ordered: 03/08/2023 documented as of this encounter Visit Diagnoses Not on filedocumented in this encounter Care Teams Underwriting Operations Manager Relationship Specialty Start Date End Date Ej Frausto MD [address] [facility] [place] [address] PCP - General 11/04/99 documented as of this encounter
--- OUTSIDE RECORDS SUMMARY | 2025-03-25 13:29 | XMS_ITS | Encounter Summary ---
Author Organization [facility] Address [address] [place] [address] Phone Care Team Providers Care Professor Of Law Name Role Phone Ej Frausto MD Primary Care Provider [phone] Encounter Details Date Type Department Care Team (Latest Contact Info) Description 03/18/2025 Travel Social History Tobacco Use Types Packs/Day Years [...] AM EDT documented as of this encounter Plan of Treatment Upcoming Encounters Date Type Department Care Team (Late st Contact Info) Description 08/25/2025 11:10 AM EDT Office Visit [place] [address] [facility] [address] [place] [address] Marcus Recinos MD 703 [facility] 2, [address] [place] [address] documented as of this encounter Visit Diagnoses Not on filedocumented in this encounter Additional Health Concerns Assessment Noted Time A fall risk assessment has been complete d for the patient 01/06/2025 1:21 PM EST documented as of this encounter Care Teams Professor Of Law Relationship Specialty Start Date End Date Ej Frausto MD [address] [place] [address] PCP - General 11/04/99 documented as of this encounter
--- OUTSIDE RECORDS SUMMARY | 2025-03-25 13:29 | XMS_ITS | Encounter Summary ---
Author Organization [facility] Address [address] [place] [address] Phone Care Team Providers Care Counter Caser Name Role Phone Ej Frausto MD Primary Care Provider [phone] Encounter Details Date Type Department Care Team (Late st Contact Info) Description 12/10/2022 Orders Only [facility] [address] [place] [address] Conversion, Onbase Social History Tobacco Use Types [...] Description 08/25/2025 11:10 AM EDT Office Visit [place] [id number] [facility] [address] [place] [address] Marcus Recinos MD [address] [facility] 2, [facility] [address] [place] [address] Scheduled Orders Name Type Priority Associated Diagnoses Orde r Schedule OUTSIDE LAB SCAN Lab Ordered: 12/10/2022 documented as of this encounter Visit Diagnoses Not on filedocumented in this encounter Care Teams Counter Caser Relationship Specialty Start Date End Date Ej Frausto MD [address] [facility] [place] [address] PCP - General 11/04/99 documented as of this encounter
--- OUTSIDE RECORDS SUMMARY | 2025-03-25 13:29 | XMS_ITS | Encounter Summary ---
Author Organization [facility] Address [address] [place] [address] Phone Care Team Providers Care Assistant Therapy Aide Name Role Phone Ej Frausto MD Primary Care Provider [phone] Reason for Visit * Reason Comments Med Refill Encounter Details Date Type Department Care Team (Late st Contact Info) Description 03/17/[address] [address] Marcus Recinos MD [address] [place] [address] 2, [address] [address] Unspecified atrial flutter (Multi) Social History Tobacco Use Types Packs/Day Years [...] Description 08/25/2025 11:10 AM EDT Office Visit [address] [address] Marcus Recinos MD [address] [place] [address] 2, [address] [address] documented as of this encounter Visit Diagnoses Diagnosis Unspecified atrial flutter (Multi) documented in this encounter Additional Health Concerns Assessment Noted Time A fall risk assessment has been complete d for the patient 01/06/2025 1:21 PM EST documented as of this encounter Care Teams Assistant Therapy Aide Relationship Specialty Start Date End Date Ej Frausto MD [address] [place] [address] PCP - General 11/04/99 documented as of this encounter
--- OUTSIDE RECORDS SUMMARY | 2025-03-25 13:29 | XMS_ITS | Referral Summary ---
Author Organization [facility] Address [address] [place] [address] Care Team Providers Care [place] Attorney Name Role Phone Unavailable Primary Care Provider Unavailabl e Social History Tobacco Use Types Packs/Day Years Used Date Smoking Tobacco: Never Assessed [place] Safety & Environment Answer Date Rec orded Fear of Current or Ex-Partner Not on file Emotionally Abused Not on file 12/26/2023 Physically Abused Not on file 12/26/2023 Sexually Abused Not on file 12/26/2023 Physically or Sexually Abused Not on file Sex and Gender Information Value Date Recorded Sex Assigned at Not on file Gender Identity Not on file Sexual Orientation Not on file Plan of Treatment Not on file
--- OUTSIDE RECORDS SUMMARY | 2025-03-25 13:29 | XMS_ITS | Clinical Summary ---
Author Organization [facility] Address [address] [place] [address] Care Team Providers Care Mail Handler Sorter Name Role Phone Unavailable Primary Care Provider [...] Orientation Not on file Plan of Treatment Health Maintenance Due Date Last Done Comments CT Colonography 1955 Colonoscopy 1955 Colorectal Cancer Screening 1955 FIT-DNA 1955 FIT 1955 FOBT 1955 Medicare Annual Wellness (AWV) 1955 Sigmoidoscopy 1954 Depression Screening 1966 Adult Tetanus 1976 Zoster Vaccines (1 of 2) 2004 Fall Risk Screening 2019 Pneumococcal Vaccine: 65+ Ye ars (1 of 1 - PCV) 2019 COVID-19 Vaccine ( - 2023-2 5 season) 2024 Influenza Vaccine (Season Ended) 2025 HIB Vaccines Aged Out No longer eligi ble based on patient's age to complete this topic HPV Vaccines Aged Out No longer eligi ble based on patient's age to complete this topic IPV Vaccines Aged Out No longer eligi ble based on patient's age to complete this topic Meningococcal B Vaccine Aged Out No l onger eligible based on patient's age to complete this topic Meningococcal Vaccine Aged Out No ana mukesh eligible based on patient's age to complete this topic Rotavirus Vaccines Aged Out No longer eligible based on patient's age to complete this topic
== END 2025-03-25 13:26 | disposition home or self-care (01) ==
LOC: CT 13:25
PROVIDERS: PCP Family Medicine; Visit Provider Family Medicine
DX: R10.9 Unspecified abdominal pain (principal); K57.90 Diverticulosis of intestine, part unspecified, without perforation or abscess without bleeding
CPT/HCPCS: 74176

== ENCOUNTER 2025-04-09 09:55 | Outpatient (OUT) | payer MEDICARE, SELFPAY ==
--- OUTSIDE RECORDS SUMMARY | 2025-03-24 05:08 | XMS_ITS ---
Author Organization [facility] in [place] Address [address] [place] [address] Care Team Providers Care Russet Repairer Name Role Phone Jim Frausto Primary Care Provider [phone] REASON FOR VISIT Kidney Stones Encounters Encounter Location Date Provider Diagnosis [facility] [address] [place] [address] 03/24/2025 Jim Frausto Flank pain R10.9 Assessments Encounter Date Diagnosis (ICD Code) Assessment Notes Treatment Notes Treatment Clinical Notes Section Notes 03/24/2025 Flank pain (ICD-10 - R10.9) Plan Of Treatment Pending Test Test Name Order Date CT Abdomen and Pelvis w/o contrast 03/24 Progress Notes * ALEXUSDarrius WALDENDOB:1955 ( 69 yo M)Acc No.[id number]:03/24/2025 Patient: Darrius HERNANDEZ :1955 A ge:69 Y S ex:Male Address:[address] [place] [address] Subjective: * Chief Complaints: * K idney Stones * Medical History: * Surgical History: * Hospitalization/Major Diagno stic Procedure: * Medications: Objective: * Vitals: * Physical Examination: Assessment: * Assessment: 1. F lank pain - R10.9 (Primary) Plan: * Treatment: * Procedure Codes: * true * Date: Generated for Printi ng/Faxing/eTransmitting on: 0 04/09/2025 09:59 AM EDT
--- OUTSIDE RECORDS SUMMARY | 2025-03-25 15:56 | XMS_ITS ---
Author Organization [facility] Address [address] [place] [address] Care Team Providers Care Director Of Billing Name Role Phone Jim Frausto Primary Care Provider [phone] results Encounters Encounter Location Date Provider Diagnosis [facility] [address] [place] [address] 03/25/2025 Jim Frausto Plan Of Treatment No Information Progress Notes * Darrius MAGAÑADOB:1955 ( 69 yo M)Acc No.[id number]:03/25/2025 Patient: Timur Darrius ORDONEZ :1955 A ge:69 Y S ex:Male Address:[address] [place] [address] * true * Date: Generated for Printi ng/Fakimberlyg/eTransmitting on: 0 04/09/2025 09:57 AM EDT
--- OUTSIDE RECORDS SUMMARY | 2025-04-01 10:45 | XMS_ITS ---
Author Organization [facility] [place] Address [address] [place] [address] Care Team Providers Care Clinical Business Analyst Name Role Phone Jim Frausto Primary Care Provider Allergies Allergen (clinical drug ingredient) Drug/Non Drug Allergy documented on EMR Reaction Allergy Type Onset Date Status ciprofloxacin Ciprofloxacin rash Drug Allergy Active REASON FOR [place]IS[place] [facility] [place]25- fall- did x-ray [...] initial encounter (S46.112A) Active confirmed Vital Signs Weight 221.6 lbs 04/01/2025 Height 72 in 04/01/2025 Blood pressure systolic 118 mm Hg 04/01/20 25 Blood pressure diastolic 76 mm Hg 025 Heart Rate 70 /min 04/01/2025 BMI 30.05 kg/m2 04/01/2025 Oximetry 97 % 04/01/2025 Procedures Procedure Date Ordered Date Performed Result Body Sit e Holter Monitor - 3 days up to 14 days 04/01/2025 N/A Encounters Encounter Location Date Provider Diagnosis [facility] [address] [place] [address] 04/01/2025 Jim Frausto Atrial flutter I48.9 2 [...] * Darrius VAUGHANDOB:1955 ( 69 yo M)Acc No.[id number]:04/01/2025 Progress Note Patient: Darrius HERNANDEZ Provider: Eneida Frausto ([facility])MD :1955 A ge:69 Y S ex:Male Date:04/01/2025 Address:[address] [place], [place] [id number] Check In:02:40 PM ESTCheck O ut:03:15 PM EST Subjective: * Chief Complaints: * F [facility] [place] F/U- there 03/29/25- fall- did x-ray [...] changes d enies. v isual changes d enies.?non-healing mouth sores d enies. s wollen glands or neck lumps d enies. h oarseness d enies. s ore throat d enies. d ifficulty swallowing d enies. n ose bleeds d enies. n karthik congestion d enies. e ar ache d enies. e ar discharge?denies. r inging in ears d enies. l ight sensitivity d enies. e ye pain d enies. b lurring d enies. e ye irritation d enies. d ouble vision d enies.?vision loss d enies. G eneral/Constitutional: Sweats: D enies. F atigue d enies. S leep problems d enies. A norexia d enies. M alaise d enies. W eight loss d enies.?Fatigue or Weakness d enies. F ever or [...] frequent cough d enies. C oughing up blood?denies. D ifficulty breathing d enies. P roductive cough d enies. S noring?denies. S hortness of breath that awakens from [...] Modified On:05/01/2025W/U Status:confirmed K76.0 Fatty liver Modified On:03/18/2025/U Status:confirmed S46.112A Biceps tendon ruptur e, left, initial encounter Modified On:04/01/2025/U Status:confirmed * Medical History: * Surgical History: A ppendix Gallbladder Hernia x3 Colonoscopy 04/12/21eye injections for macular degeneration * Hospitalization/Major Diagno stic Procedure: D enies Past Hospitalization * Family History: F ather: . M other: , diagnosed with Diabetes mellitus without mention of complication, type II or unspecified type, not stated as uncontrolled. B rother(s): alive. S ister(s): alive. S on(s): alive. D pauler(s): alive. 2 brother(s) , 3 sister(s) - healthy. 1 son(s) , 3 daughter(s) - healthy. . * Social History: T obacco Use: T obacco Use/Smoking P atient is a f ormer smoker W hen did you start smoking? 0 04/04/1968 W hen did you stop smoking? H ow long has it been since you last smoked??1-5 years A dditional Findings: Tobacco Non-User E [...] NOSE: n o deformity, discharge, inflammation, or lesions.? MOUTH: m ucous membranes moist, normal oropharynx and posterior pharynx without lesions or exudates, tongue normal, dentition normal. NECK: n viji supple, no masses or palpable cervical nodes, trachea midline, thyroid without nodules, masses, tenderness, or enlargement. CHEST: n o chest wall deformity, no chest wall tenderness.? LUNGS: n ormal respiratory effort and clear [...] Procedure Codes: * Preventive Medicine: Screenings/Counseling: B NM ACTION PLAN Above Normal BMI Follow-up D ietary management education, guidance, and counseling * * Sign off status: Completed Visit Status: C HK (Check Out) true * Provider: Eneida Frausto ([facility])MD Date: 0 04/01/2025 Generated for Printi ng/Faxing/eTransmitting on: 0 04/09/2025 09:58 AM EDT History and Physical Notes * [...]
--- OUTSIDE RECORDS SUMMARY | 2025-04-09 09:57 | XMS_ITS | Clinical Summary ---
Author Organization [facility] Address [address] [place] [address] Phone Care Team Providers Care Top Lift Nailer Name Role Phone Ej Frausto MD Primary Care Provider [phone] Allergies Active Allergy Reactions Criticality Noted Date [...] mg) by mouth once daily. Active vitamins A,C,E-gath-ukytwg (PreserVision AREDS) 2,148 mcg-113 mg-45 mg-17.4mg tablet [...] Encounters Date Type Department Care Team Description 04/05/[address] [address] Mary Cosby RN 03/22/[address] [address] Jade Flores CMA 03/18/2025 8:30 AM EDT - 03/18/2025 11:59 PM EDT Hospital Encounter [address] [place] [address] Essential hypertension; Atypical atrial flutter; Mixed hyperlipidemia; Former smoker Discharge Disposition: Home 03/18/2025 Travel 03/17/[address] [address] Maria Esther Recinos MD Unspecified atrial flutter (Multi) from Last 3 Months Family History Medical [...] Encounters Date Type Department Care Team (Late Contact Info) Description 08/25/2025 11:10 AM EDT Office Visit [facility] [address] [facility] [address] [place] [address] Maria Esther Recinos MD [address] [facility] [place] [address] Health Maintenance Due Date Last Done Comments [...] 60-74 years 1-dose series) 2014 COVID-19 Vaccine (1 - 2023-2 5 season) 2024 Medicare Annual [...] Procedure Name Priority Date/Time Associated Diagnosis Comments [facility] ABDOMINAL AORTA ANEURYSM AAA SCREENING Routine 03/18/2025 8:55 AM EDT Essential hypertension Atypical atrial flutter Mixed hyperlipidemia Former smoker from Last 3 Months Results * Vascular US Abdominal Aorta Aneurysm AAA Screening (03/18/2025 8:55 AM EDT) Anatomical Region Laterality Modality Abdomen Echocardiography 03/18/2025 8:40 AM EDT Narrative 03/20/2025 4:43 PM EDT [address], Suite [facility], [place] [address] Vascular Lab Report [facility] US ABDOMINAL AORTA ANEURYSM AAA SCREENING Patient Name: REMEDIOS Black Physician: [id number] Maria Esther Recinos MD, [facility] Study Date: 03/18/2025 Ordering Provider: [id number] MARIA ESTHER RECINOS MRN/PID: [id number] Fellow: Technologist: Yadira Atkins RDCS, RVT Date of /Age: 12 1955 / 69 years Technologist 2: Gender: M Admission Status: Outpatient Location Performed: [facility] Diagnosis/ICD: Essential primary hypertension-I10; Personal history of tobacco use-Z87.891 Indication: Hyperlipidemia, Atrial Flutter, COPD CPT Codes: 93402 Ultrasound, abdominal aorta, real time with image documentation, screening study for (AAA) CONCLUSIONS: Imaging & Doppler Findings: AORTA AP Lateral Distal 2.53 cm 2.44 cm Shantel Recinos MD, FACC Final Procedure Note Maria Esther Recinos MD - 03/20/[address], [address] [place] [address] Vascular Lab Report [facility] US ABDOMINAL AORTA ANEURYSM AAA SCREENING Patient Name: REMEDIOS Black Physician: Jessica Recinos MD, FACC Study Date: 03/18/2025 Ordering Provider: [id number] SHAYAN RECINOS MRN/PID: [id number] Fellow: Technologist: Yadira Cam RVT Date of /Age: 12 1955 / years Technologist 2: Gender: M Admission Status: Outpatient Location Performed: [facility] Diagnosis/ICD: Essential primary hypertension-I10; Personal history oftobacco use-Z87.891 Indication: Hyperlipidemia, Atrial Flutter, COPD CPT Codes: 67419 Ultrasound, abdominal aorta, real time with image documentation, screening study for (AAA) CONCLUSIONS: Imaging & Doppler Findings: AORTA AP Lateral Distal 2.53 cm 2.44 cm Shantel Recinos MD, FACC at4:43:10 PM Final Maria Esther Recinos MD CV VASCULAR PROCEDURES Final Result from Last 3 Months Insurance MEDICARE PART A AND B Member Subscriber Plan / Payer (Ef fective 2019-Present) Name:Remedios Magaña Member ID:[id number] Relation to Subscriber:Self Name:Remedios Magaña Subscriber ID:[id number] Payer ID:Not on file Group ID:Not on file Type:Not on file Address: [address] SENIOR SUPPLEMENT MEDICARE PART A AND B Member Subscriber Plan / Payer (Ef fective 2019-Present) Name:Remedios Magaña Member ID:[id number] Relation to Subscriber:Self Name:Remedios Magaña Subscriber ID:[id number] Payer ID:Not on file Group ID:Not on file Type:Not on file Address: [address] SENIOR SUPPLEMENT Care Teams Top Lift Nailer Relationship Specialty Start Date End Date Ej Frausto MD [address] [place] [address] PCP - General 11/04/99
--- OUTSIDE RECORDS SUMMARY | 2025-04-09 09:58 | XMS_ITS | Patient Health Record ---
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 Name Role Phone LisbetJim Primary Care Provider [phone] Allergies Allergen (clinical drug ingredient) Drug/Non Drug Allergy documented on EMR Reaction Allergy Type Onset Date Status ciprofloxacin Ciprofloxacin rash Drug Allergy Active Results Component Value Reference Range Notes GLYCOHEMOGLOBIN A1C Reviewed date:07/28/2024 12:15:10 PM Interpretation: Performing Lab: Notes/Report: [facility] , Glycohemoglobin A1C 6.4 4.5-6.2 % ADA RECOMMENDED LIMIT 4.0 - 6.0 ADA THERAPEUTIC TARGET < 7.0 ACTION SUGGESTED > 7.0 Estimated Average Glucose 137 Performing Lab: see note ML - [facility] LB RT pulmonary function test Reviewed date:12/29/2024 01:43:35 PM Interpretation: Performing Lab: Notes/Report: Source Facility: [facility]-[address] [place] [address] [place] [address] Respiratory Report Signed Patient: DARRIUS VAUGHAN MR#: [id number] : 1955 Acct:[id number] Age/Sex: 69 / M ADM Date: 12/28/24 Loc: LAB Attending Dr: MARIA ESTHER CORTES Ordering Physician: MARIA ESTHER CORTES Date of Service: 12/28/24 Procedure(s): RT pulmonary function test Accession Number(s): [id number] cc: [facility] Test Date: 2024-12-28 Pat Name: DARRIUS VAUGHAN Department: Room: - Gender: Male Chairman & Ceo: Rakesh WagnerJABIER : 1955 Requested By: 358 Order Number: [id number] Reading MD: Gasper Sewell Interpretive Statements Pulmonary [...] Signed By: 12/29/24 1139 DD/ 0849 TD/TT: Architectural Design Professor: [place] [address] Respiratory Report Signed Patient: DARRIUS VAUGHAN MR#: [id number] : 1955 Acct:[id number] Age/Sex: 69 / M ADM Date: 12/28/24 Loc: LAB Attending Dr: MARIA ESTHER CORTES Ordering Physician: MARIA ESTHER CORTES Date of Service: 12/28/24 Procedure(s): RT pulmonary function test Accession Number(s): [id number] cc: [facility] Test Date: 2024-12-28 Pat Name: DARRIUS Kaur Department: 41 Room: - Gender: Male Chairman & Ceo: Rakesh WagnerJABIER : 1955 Requested By: 358 Order Number: [id number] Reading MD: Gasper Sewell Interpretive Statements Pulmonary [...] Signed By: 12/29/24 1139 DD/ 0849 TD/TT: Architectural Design Professor: BNP Reviewed date:03/14/2025 05:59:38 PM Interpretation: Performing Lab: Notes/Report: [facility] , NT Pro B Type Natriuretic Pept 61.0 <=900.0 pg/mL Performing Lab: see note ML - [facility] LB CBC AUTO DIFF Reviewed date:03/14/2025 05:59:38 PM Interpretation: Performing Lab: Notes/Report: [facility] , White Blood Count 5.0 4.0-11.0 10 [...] 3/uL Performing Lab: see note ML - [facility] FREE T3 Reviewed date:03/14/2025 05:59:38 PM Interpretation: Performing Lab: Notes/Report: [facility] , Free T3 2.23 2.18-3.98 pg/mL Performing Lab: see note ML - [facility] LB GLYCOHEMOGLOBIN A1C Reviewed date:03/14/2025 05:59:38 PM Interpretation: Performing Lab: Notes/Report: [facility] , Glycohemoglobin A1C 6.3 4.5-6.2 % ADA RECOMMENDED LIMIT 4.0 - 6.0 ADA THERAPEUTIC TARGET < 7.0 ACTION SUGGESTED > 7.0 Estimated Average Glucose 134 Performing Lab: see note ML - [facility] LB LIPID PROFILE Reviewed date:03/14/2025 05:59:38 PM Interpretation: Performing Lab: Notes/Report: [facility] , Triglycerides 67 <=150 mg/dL Cholesterol 200 <=200 mg/dL HDL Cholesterol 80 40-60 mg/dL > or =60 mg/dl - LOW CARDIOVASCULAR RISK <40 mg/dl - HIGH CARDIOVASCULAR RISK LDL Cholesterol Calculated 107.0 <100 mg/dl OPTIMAL 100-129 mg/dl NEAR OR ABOVE OPTIMAL 130-159 mg/dl BORDERLINE HIGH 160-189 mg/dl HIGH >190 mg/dl VERY HIGH VLDL CHOLESTEROL 13.4 Chol HDL Ratio 2.5 3.3 - 4.4 LOW RISK 4.4 - 7.1 AVERAGE RISK 7.1 - 11.0 MODERATE RISK >11.0 HIGH RISK Performing Lab: see note ML - [facility] PROF 14(COMP METB) Reviewed date:03/14/2025 05:59:38 PM Interpretation: Performing Lab: Notes/Report: [facility] , Sodium 136 136-145 mmol/L Potassium 4.5 [...] 1.0 Performing Lab: see note ML - [facility] LB PSA SCREENING Reviewed date:03/14/2025 05:59:38 PM Interpretation: Performing Lab: Notes/Report: [facility] , Prostate Specific Antigen Scrn 1.19 <=4.00 ng/mL Performing Lab: see note ML - [facility] T4 Reviewed date:03/14/2025 05:59:38 PM Interpretation: Performing Lab: Notes/Report: [facility] , T4 Thyroxine 12.50 4.50-12.10 ug/dL Performing Lab: see note ML - [facility] LB TSH Reviewed date:03/14/2025 05:59:38 PM Interpretation: Performing Lab: Notes/Report: [facility] , Thyroid Stimulating Hormone 3.164 0.358-3.740 uIU/mL Performing Lab: see note ML - [facility] LB CT abdomen pelvis wo con Reviewed date:03/25/2025 07:56:29 PM Interpretation: Performing Lab: Notes/Report: Source Facility: [place] [address] [place] [address] CT Scan Report Signed Patient: DARRIUS VAUGHAN MR#: [id number] : 1955 Acct:[id number] Age/Sex: 69 / M ADM Date: 03/25/25 Loc: CT Attending Dr: Tirso Mccormick M.D. Ordering Physician: Tirso Mccormick M.D. Date of Service: 03/25/25 Procedure(s): CT abdomen pelvis wo con Accession Number(s): [id number] cc: Tirso Mccormick M.D. [place] [address] Patient Name: DARRIUS VAUGHAN MRN: [facility]:[id number] date: 1955 Sex: M Assigned Patient Location: CT Current Patient Location: CT Accession/Order Number: [id number] Exam Date: 03/25/2025 13:52 Report Date: 03/25/2025 14:00 At the request of: TIRSO MCCORMICK MD Procedure: CT abdomen pelvis wo con CT ABDOMEN AND PELVIS WITHOUT CONTRAST COMPARISON: None CLINICAL DATA: Chronic left flank pain. Spiral images were obtained through the abdomen and pelvis without contrast. This CT exam was performed using one or more following dose reduction techniques: Automated exposure control, adjustment of the mA and/or kV according to patient size, or use of iterative reconstruction technique. Limited cuts through the lung bases show no contributory findings. Evaluation of the intra-abdominal organs is slightly limited by the absence of contrast. The gallbladder surgically absent. No biliary dilatation is seen. Mild fatty infiltration of the liver is suspected. The spleen, pancreas and adrenal glands show no acute findings. No renal calculi or hydronephrosis are noted. No ureteral dilatation or stones are seen. There is atherosclerotic plaque involving the aorta, iliac and some of the visceral arteries. Small retroperitoneal lymph nodes are visualized. No ascites is seen. There is moderate food debris within the stomach. There are normal caliber small bowel loops. There is stool within the colon, greater on the right. There are some left-sided colonic diverticula. There are mild degenerative changes at the spine, greatest at the lower facets. No compression fractures or displacement are noted Images through the pelvis show normal caliber small bowel loops. No appendiceal inflammation is seen. There is rectosigmoid stool. The remainder of the sigmoid colon is underdistended. There are additional colonic diverticula, without associated active inflammation. There is a bilobed umbilical hernia containing fat. The prostate is borderline prominent and contains calcification. The urinary bladder is not well distended and there is apparent wall thickening. No ascites is noted. CT/CT abdomen pelvis wo con IMPRESSION: SUSPECTED FATTY LIVER. NO OBSTRUCTIVE UROPATHY OR STONE DISEASE. NO BOWEL OBSTRUCTION. DIVERTICULOSIS. UNDER DISTENDED URINARY BLADDER WITH APPARENT WALL THICKENING. NO OTHER ACUTE FINDINGS. Impression dictated by: Nikki Gleason M.D. 03/25/2025 2:00 PM Dictation Location: [place] [address] Electronically authenticated by: [id number] Y Date: 03/25/2025 14:00 Dictated By: Nikki Gleason M.D. Signed By: 03/25/25 1403 DD/ 1400 TD/TT: Architectural Design Professor: [place] [address] CT Scan Report Signed Patient: DARRIUS VAUGHAN MR#: [id number] : 1955 Acct:[id number] Age/Sex: 69 / M ADM Date: 03/25/25 Loc: CT Attending Dr: Gabriella Mccormick M.D. Ordering Physician: Tirso Mccormick M.D. Date of Service: 03/25/25 Procedure(s): CT abdomen pelvis wo con Accession Number(s): [id number] cc: Tirso Mccormick M.D. The [address] [address] Patient Name: DARRIUS VAUGHAN MRN: [id number] date: 1955 Sex: M Assigned Patient Location: CT Current Patient Location: CT Accession/Order Numb er: [id number] Exam Date: 03/25/2025 13:52 Report Date: 03/25/2025 14:00 At the request of: TIRSO MCCORMICK MD Procedure: CT abdome n pelvis wo con CT ABDOMEN AND PELVI S WITHOUT CONTRAST COMPARISON: None CLINICAL DATA: Chron ic left flank pain. Spiral images were obtained through the abdomen and pelvis without contrast. This CT exam was performed using one or more following dose reduction techniques: Automate d exposure control, adjustment of the mA and/or kV according to patient size, or use of iterative reconstruction technique. Limited cuts through the lung bases show no contributory findings. Evaluation of the intra-abdominal organs is slightly limited by the absence of contrast. The gallbladder surgically absent. No biliary dilatation is seen. Mild fatty infiltrat ion of the liver is suspected. The spleen, pancreas and adrenal glands show no acute findings. No renal calculi or hydronephrosis are noted. No ureteral dilatation or stones are seen. There is atherosclerotic plaque involving the aorta, iliac and some of the visceral arteries. Small retroperitoneal lymph nodes are visualized. No ascites is seen. The re is moderate food debris within the stomach. There are normal caliber small bowel loops. There is stool within the colon, greater on the right. There are some left-sided colonic diverticula. There are mild degenerative changes at the spine, greatest at the lower facets. No compression fracture s or displacement are noted Images through the pelvis show normal caliber small bowel loops. No appendiceal inflammation is seen. There is rectosigmoid stool. The remainder of the sigmoid colon is underdistended. There are additional colonic diverticula, without associated active inflammation. There is a bilobed umbilical hernia containing fat. The prostate is borderline prominent and contains calcificati on. The urinary bladder is not well distended and there is apparent wall thickening. No ascites is noted. CT/CT abdomen pelvis wo con IMPRESSION: SUSPECTED FATTY LIVER. NO OBSTRUCTIVE UROPA THY OR STONE DISEASE. NO BOWEL OBSTRUCTION. DIVERTICULOSIS. UNDER DISTENDED URIN CATALINO BLADDER WITH APPARENT WALL THICKENING. NO OTHER ACUTE FINDINGS. Impression dictated by: Nikki Gleason M.D. 03/25/2025 2:00 PM Dictation Location: [place] [address] Electronically authenticated by: [id number] Y Date: 03/25/2025 14:00 Dictated By: Nikki Gleason M.D. Signed By: 03/25/25 1403 DD/ 1400 TD/TT: Architectural Design Professor: XR chest 2V Reviewed date:12/28/2024 08:06:45 PM Interpretation: Performing Lab: Notes/Report: Source Facility: [place] [address] XRay Report Signed Patient: DARRIUS VAUGHAN MR#: [id number] : 1955 Acct:[id number] Age/Sex: 69 / M ADM Date: 12/28/24 Loc: LAB Attending Dr: MARIA ESTHER CORTES Ordering Physician: MARIA ESTHER CORTES Date of Service: 12/28/24 Procedure(s): XR chest 2V Accession Number(s): [id number] cc: Tirso Mccormick M.D.; MARIA ESTHER CORTES [place] [address] Patient Name: DARRIUS VAUGHAN MRN: [id number] date: 1955 Sex: M Assigned Patient Location: LAB Current Patient Location: LAB Accession/Order Number: [id number] Exam Date: 12/28/2024 10:18 Report Date: 12/28/2024 [...] Nikki Gleason M.D.12/28/2024 10:21 AM Dictation Location: [place] [address] Electronically authenticated by: [id number] Y Date: 12/28/2024 10:21 Dictated By: Nikki Gleason M.D. Signed By: 12/28/24 1024 DD/ 1021 TD/TT: Architectural Design Professor: [place] [address] XRay Report Signed Patient: DARRIUS VAUGHAN MR#: [id number] : 1955 Acct:[id number] Age/Sex: 69 / M ADM Date: 12/28/24 Loc: LAB Attending Dr: MARIA ESTHER CORTES Ordering Physician: MARIA ESTHER CORTES Date of Service: 12/28/24 Procedure(s): XR [address] st 2V Accession Number(s): [id number] cc: Tirso Mccormick M.D. ; MARIA ESTHER CORTES [place] [id number] Patient Name: DARRIUS VAUGHAN MRN: [id number] date: 1955 Sex: M Assigned Patient Location: LAB Current Patient Location: LAB Accession/Order Numb er: [id number] Exam Date: 12/28/2024 10:18 Report Date: 12/28/2024 [...] Nikki Gleason M.D.12/28/2024 10:21 AM Dictation Location: [place] [address] Electronically authenticated by: [id number] Y Date: 12/28/2024 10:21 Dictated By: Nikki Gleason M.D. Signed By: 12/28/24 1024 DD/ 1021 TD/TT: Architectural Design Professor: TSH Reviewed date:12/28/2024 08:06:45 PM Interpretation: Performing Lab: Notes/Report: [facility] , Thyroid Stimulating Hormone 2.863 0.358-3.740 uIU/mL Performing Lab: see note - [facility] SGOT Reviewed date:12/28/2024 08:06:45 PM Interpretation: Performing Lab: Notes/Report: [facility] , Aspartate Amino Transferase 64 15-37 U/L Performing Lab: see note ML - [facility] PROF CHEM 8 (BAS METB) Reviewed date:12/28/2024 08:06:45 PM Interpretation: Performing Lab: Notes/Report: [facility] , Sodium 141 136-145 mmol/L Potassium 4.6 [...] mg/dL Performing Lab: see note ML - [facility] HEMOGLOBIN Reviewed date:12/28/2024 08:21:43 AM Interpretation: Performing Lab: Notes/Report: [facility] , Hemoglobin 16.0 14.0-18.0 g/dL Performing Lab: see note ML - [facility] TSH Reviewed date:07/28/2024 12:15:10 PM Interpretation: Performing Lab: Notes/Report: [facility] , Thyroid Stimulating Hormone 2.950 0.358-3.740 uIU/mL Performing Lab: see note ML - [facility] LB SGPT Reviewed date:07/28/2024 12:15:10 PM Interpretation: Performing Lab: Notes/Report: [facility] , Alanine Aminotransferase 167 16-63 U/L Performing Lab: see note ML - [facility] PROF CHEM 8 (BAS METB) Reviewed date:07/28/2024 12:15:10 PM Interpretation: Performing Lab: Notes/Report: [facility] , Sodium 137 136-145 mmol/L Potassium 4.5 3.5-5.1 mmol/L Chloride 102 98-107 mmol/L Carbon Dioxide 30.5 21.0-32.0 mmol/L Anion Gap 9.0 Glucose 127 74-106 mg/dL Blood Urea Nitrogen 15.0 7.0-18.0 mg/dL Creatinine 1.01 0.70-1.30 mg/dL Estimated GFR ( Mary >60 >=60 Estimated GFR (Non- Debby >60 >=60 BUN Creatinine Ratio 14.9 Calcium 9.1 8.5-10.1 mg/dL Performing Lab: see note ML - [facility] UA (Urinalysis, Dipstix only - w/o micro) [...] ESTERASE (EMMANUEL) - NEG - NEG MG/DL COVID-19, Flu A+B IH Reviewed date:12/28/2024 08:06:45 PM Interpretation: Performing Lab: Notes/Report: COVID neg FLU A neg FLU B neg Control POS US right upper quadrant Reviewed date:03/17/2025 07:08:53 PM Interpretation: Performing Lab: Notes/Report: Source Facility: [place] [address] [address] [address] Ultrasound Report Signed Patient: DARRIUS VAUGHAN MR#: [id number] : 1955 Acct:[id number] Age/Sex: 69 / M ADM Date: 03/17/25 Loc: US Attending Dr: Tirso Mccormick M.D. Ordering Physician: Tirso Mccormick M.D. Date of Service: 03/17/25 Procedure(s): US right upper quadrant Accession Number(s): [id number] cc: Tirso Mccormick M.D. [place] [address] Patient Name: DARRIUS VAUGHAN MRN: [id number] date: 1955 Sex: M Assigned Patient Location: US Current Patient Location: US Accession/Order Number: [id number] Exam Date: 03/17/2025 10:10 Report Date: 03/17/2025 [...] Manzanares M.D. 03/17/2025 10:13 AM Dictation Location: [place] [address] Electronically authenticated by: [id number] Y Date: 03/17/2025 10:13 Dictated By: Donte Manzanares M.D. Signed By: 03/17/25 1016 DD/ 1013 TD/TT: Architectural Design Professor: [place] [address] Ultrasound Report Signed Patient: DARRIUS VAUGHAN MR#: [id number] : 1955 Acct:[id number] Age/Sex: 69 / M ADM Date: 03/17/25 Loc: US Attending Dr: Gabriella Mccormick M.D. Ordering Physician: Tirso Mccormick M.D. Date of Service: 03/17/25 Procedure(s): US rig ht upper quadrant Accession Number(s): [id number] cc: Tirso Mccormick M.D. [place] [id number] Patient Name: DARRIUS VAUGHAN MRN: [id number] date: 1955 Sex: M Assigned Patient Location: US Current Patient Location: US Accession/Order Numb er: [id number] Exam Date: 03/17/2025 10:10 Report Date: 03/17/2025 [...] Manzanares M.D. 03/17/2025 10:13 AM Dictation Location: [place] [address] Electronically authenticated by: [id number] Y Date: 03/17/2025 10:13 Dictated By: Donte Manzanares M.D. Signed By: 03/17/25 1016 DD/ 1013 TD/TT: Architectural Design Professor: Reason For Referral No Information Medications Medication SIG (Take, Route, Frequency, Duration) Notes Start Date End Date Status Lancets 33G - use 1 lancet Dx: E11 .9 once daily for 90 days 07/24/2023 Active Amiodarone HCl 200 MG Oral for 90 Days Active Aspirin 81 81 MG 1 tablet Orally once a week Active Tamsulosin HCl 0.4 MG TAKE 1 CAPSULE BY MOUTH EVERY DAY for 90 Active Xarelto 20 MG 1 tablet Orally Once a day for 90 days Active PreserVision AREDS A ctive Spironolactone 25 MG TAKE 1/2 TABLET BY MOUTH EVERY DAY for 90 days Active Pantoprazole Sodium 40 MG TAKE 1 TABLET BY MOUTH EVERY DAY for 90 Active Pravastatin Sodium 40 MG Oral for 90 Days Active Levothyroxine Sodium 50 MCG 1 tablet in the morning on an empty stomach Orally Once a day for 30 days 03/16/2025 Active Social History Tobacco Use: Social History [...] Problem Status W/U Status Risk Notes Problem 9763408 Essential (primary) hypertension (I10) Active confirmed Problem 86647648 Chronic obstructive pulmonary disease, unspecified (J44.9) Active confirmed Problem 5071918 Unspecified atri al flutter (I48.92) Active confirmed Problem 719233912 Diverticulosis o f large intestine without perforation or abscess without bleeding (K57.30) Active confirmed Problem Atrial flutter (8347114) Atrial flutter (I48.92) Active confirmed Problem Hyperlipidaemia (09498466) Hyperlipemia (E78.5) Active confirmed Problem 617546566 Dyslipidemia (E78.5) Active confirmed Problem Hypothyroid (40917104) Hypothyroid (E03.9) Active confirmed Problem Impacted cerumen (71525532) Cerumen impaction (H61.20) Active confirmed Problem Acute bronchitis (43316086) Acute bronchitis (J20.9) Active confirmed Problem Fatty liver (953881716) Fatty liver (K76.0) Active confirmed Problem Hyperthyroidism (53701404) Hyperthyroidism (E05.90) Active confirmed Problem Acute sinusitis (94900222) Acute sinus infection (J01.90) Active confirmed Problem Acute bronchiolitis (0312746) Acute bronchiolitis (J21.9) Active confirmed Problem 05320915 Type 2 diabetes mellitus with hyperglycemia, without long-term current use of insulin (E11.65) Active confirmed Problem Biceps tendon rupture, left, initial encounter (S46.112A) Active confirmed Vital Signs Heart Rate 70 /min 04/01/2025 Temperature 97.0 degrees Fahrenheit 01/11/2025 Oximetry 97 % 04/01/2025 Blood pressure diastolic 76 mm Hg 04/01/2025 Height 72 in 04/01/2025 Blood pressure systolic 118 mm Hg 04/01/2025 Weight 221.6 lbs 04/01/2025 BMI 30.05 kg/m2 04/01/2025 Procedures Procedure Date Ordered Date Performed Result Body Sit e Holter Monitor - 3 days up to 14 days 04/01/2025 N/A Encounters Encounter Location Date Provider Diagnosis [facility] [address] [place] [facility] [address] 03/23/2025 Jim Gamezy [facility] [address] [place] [facility] [place] [address] 03/24/2025 Jim Hoy Flank pain R10.9 [facility] [address] [place] [facility] [place] [address] 03/25/2025 Jim Gamezy [facility] [address] [place] [facility] [place] [address] 07/20/2024 Jim Mccormick [facility] [address] [place] [facility] [place] [address] 07/28/2024 Jim Gamezy Type 2 diabetes sherron itus with hyperglycemia, without long-term current use of insulin E11.65 [facility] [address] [place] [facility] [place] [address] 11/16/2024 Jim Hoy Acute bronchitis, unspecified organism J20.9 [facility] [address] [place] [facility] [place] [address] 03/14/2025 Jim Hoy Abnormal thyroid blo od test R94.6 [facility] [address] [place] [facility] [address] 03/16/2025 Jim Mccormick [facility] [address] [place] [facility] [place] [address] 03/17/2025 Jim Gamezy [facility] [address] [place] [place] [address] 03/23/2025 Jim Hoy Flank pain R10.9 [facility] [address] [place] [facility] [place] [address] 11/12/2024 Jim Hoy Acute bronchitis, unspecified organism J20.9 [facility] [address] [place] [facility] [place] [address] 01/11/2025 Jim Hoy Acute non-recurrent sinusitis, unspecified location J01.90 and Nasal congestion R09.81 [facility] [address] [place] [facility] [place] [address] 03/04/2025 Jim Mccormick Type 2 diabetes sherron itus with hyperglycemia, without long-term current use of insulin E11.65 ; Essential (primary) hypertension I10 and Hypothyroid E03.9 [facility] [address] [place] [address] 04/01/2025 Jim Mccormick Atrial flutter I48.9 2 and Biceps tendon rupture, left, initial encounter S46.112A Assessments Encounter Date Diagnosis (ICD Code) Assessment Notes Treatment Notes Treatment Clinical Notes Section Notes 11/12/2024 Acute bronchitis, unspecified organism (ICD-10 - J20.9) Rest and drink more liquids, especially water. You may use a humidifier or vaporizer to help keep the drainage moist. Ryth-jtu-qybezaa Nasal Saline may help the stuffy and runny nose. Use Ibuprofen and or Tylenol as needed for fever, chills, body aches or pain. Children 5 years old should not be given whou-mjz-nabpxxp cough and cold medications such as guaifenesin and dextromethorphan. If you're over age 5, you may try mskl-ofo-lttsdul cold medications such as guaifenesin and dextromethorphan, [...] vaporizer to help keep the drainage moist. Woqb-doj-iebwnhm Nasal Saline may help the stuffy and runny nose. Use Ibuprofen and or Tylenol as needed for fever, chills, body aches or pain. Children 5 years old should not be given ovcx-jro-zqoocsl cough and cold medications such as guaifenesin and dextromethorphan. If you're over age 5, you may try nhqk-wyx-rvdniba cold medications such as guaifenesin and dextromethorphan, [...] 03/04/2025 Essential (primary) hypertension (ICD-10 - I10) 03/23/2025 Flank pain (ICD-10 - R10.9) 04/01/2025 Atrial flutter (ICD-10 - I48.92) 04/01/2025 Biceps tendon rupture, left, initial encounter (ICD-10 - S46.112A) 07/28/2024 Type 2 diabetes mellitus with hyperglycemia, without long-term current use of insulin (ICD-10 - E11.65) 11/16/2024 Acute bronchitis, unspecified organism (ICD-10 - J20.9) 03/14/2025 Abnormal thyroid blood test (ICD-10 - R94.6) 03/24/2025 Flank pain (ICD-10 - R10.9) 03/04/2025 Hypothyroid (ICD-10 - E03.9) 01/11/2025 Nasal congestion (ICD-10 - R09.81) Plan Of Treatment Pending Test Test Name Order Date EAR IRRIGATION 03/12/2024 CMP (COMPLETE METABOLIC PANEL) HEMOGLOBIN A1C (GLYCO) 03/04/2025 HEMOGLOBIN A1C (GLYCO) [...] T3) 4 THYROID PANEL (T4/TSH/FREE T3) 5 Holter Monitor - 3 days up to 14 days PSA, SCREENING 01/07/2024 PSA, SCREENING 03/04/2025 Lipid Panel 01/07/2024 CMP (COMP MET TSE) w/eGFR CKD-EPI 2024 CBC WITH DIFF 03/04/2025 Insurance Providers Payer Name Payer Address Payer Phone Subscriber Number Group Number Insured Name Patient Relationship to Insured Coverage Start Date Coverage End Date MEDICARE [place] [address] [phone] [id number] Gómez Darrius Self - patient is the insured 9 [employer] SUPPLEMENTAL INSURANCE [address] [address] [place], [place] [phone] [phone] [id number] Gómez Darrius Self - patient is the insured 9 [...] H91.90 Surgical History Surgery Date(Month/Year) Colonoscopy 04/12/21 Gallbladder Appendix Hernia x3 eye injections for macular degeneration
--- OUTSIDE RECORDS SUMMARY | 2025-04-09 09:58 | XMS_ITS | Clinical Summary ---
Author Organization [facility] Address [address] [place] [address] Care Team Providers Care Supervisor Doping Name Role Phone Ej Frausto MD Primary Care Provider [phone] Allergies Active Allergy Reactions Criticality Noted Date [...] [facility] [address] [place] [address] Joe García DPM Diabetes mellitus due to underlying condition with diabetic polyneuropathy, unspecified whether terminologist insulin use ([facility]) (Primary Dx); Pain due to onychomycosis of toenails of both feet 02/04/2025 Bamboo flowsheet [facility] [address] [place] [address] Joe García DPM 02/04/2025 Travel from Last [...] EDT Procedure Visit [facility] 112 [facility] 120 [place] [address] Joe García DPM 3006 [facility] 5 [place] [address] Insurance MEDICARE [employer] Care Teams Supervisor Doping Relationship Specialty Start Date End Date Ej Frausto MD PCP - General Family Medicine 11/26/24
--- OUTSIDE RECORDS SUMMARY | 2025-04-09 09:58 | XMS_ITS | Encounter Summary ---
Author Organization [facility] Address [address] [place] [address] Phone Care Team Providers Care Frame Pulley Mortising Machine Operator Name Role Phone Ej Frausto MD Primary Care Provider [phone] Reason for Referral * PFT (Routine) - Authorized Specialty Diagnoses / Procedures Referred By Contac t Referred To Contact Diagnoses Shortness of breath Procedures Complete Pulmonary Function Test (Spirometry/DLCO/Lung Volumes) Marcus Recinos MD 703 [facility] 2, [address] [address] Phone: tel: fax: Referral ID Status Reason Start Date Expiration Date V isits Requested Visits Authorized [id number] Authorized 04/07/2025 04/07/2026 1 1 Encounter Details Date Type Department Care Team ([facility] st Contact Info) Description 04/05/2025 Telephone [place] [id number] [address] Mary Cosby RN Social History Tobacco Use Types Packs/Day Years [...] encounter Miscellaneous Notes * Telephone Encounter - Santosh Trevino LPN - 04/06/2025 10:23 AM EDT No I will remove the holtor order since we already have a PCP order. Keeping the PFT pended * Addendum Note - Santosh Trevino LPN - 04/06/2025 8:49 AM EDTAddended by: SANTOSH TREVINO on: 04/06/2025 08:49 AM Modules accepted: Orders * Telephone Encounter - Santosh Trevino LPN - 04/06/2025 8:48 AM EDT Orders placed. Once signed please call patient to notify and see where he would like scheduled for the PFT Task sent to pathology secretary/transcriptionist to call and arrange once order signed. * Telephone Encounter - Mary Cosby RN - 04/05/2025 9:14 AM EDT Pt phones and states that he has been experiencing sob on exertion on and off for a while now. Denies any further symptoms. 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 Pt states bp has been good and has no further complaints. documented in this encounter Plan of Treatment Upcoming Encounters Date Type Department Care Team (Late st Contact Info) Description 08/25/2025 11:10 AM EDT Office Visit [facility] 703 [facility] 250 [place] [address] Marcus Recinos MD 703 [facility] 2, [place] [address] [place], [place] [phone] Scheduled Orders Name Type Priority Associated Diagnoses Orde r Schedule Complete Pulmonary Function Test (Spirometry/DLCO/Lung Volumes) PFT Routine Shortness of breath Expected: 04/07/2025 (Approximate), Expires: 04/06/2026 documented as of this encounter Visit Diagnoses Diagnosis Shortness of breath documented in this encounter Additional Health Concerns Assessment Noted Time A fall risk assessment has been complete d for the patient 01/06/2025 1:21 PM EST documented as of this encounter Care Teams Frame Pulley Mortising Machine Operator Relationship Specialty Start Date End Date Ej Frausto MD [address] [facility] [place] [address] PCP - General 11/04/99 documented as of this encounter
--- OUTSIDE RECORDS SUMMARY | 2025-04-09 09:58 | XMS_ITS | Encounter Summary ---
Author Organization [facility] Address [address] [place] [address] Phone Care Team Providers Care Warehouse Shift Supervisor Name Role Phone Ej Frausto MD Primary Care Provider [phone] Encounter Details Date Type Department Care Team (Late st Contact Info) Description 01/09/2024 Scanned Document [facility] [address] [place] [address] Scanning, Generic Provider Social History Tobacco Use [...] Description 08/25/2025 11:10 AM EDT Office Visit [facility] 703 [facility] 250 [place] [address] Marcus Recinos MD 703 [facility] 2, [place] [place], [place] [address] documented as of this encounter Procedures Procedure [...] documented as of this encounter Care Teams Warehouse Shift Supervisor Relationship Specialty Start Date End Date Ej Frausto MD [address] [place] [address] PCP - General 11/04/99 documented as of this encounter
--- OUTSIDE RECORDS SUMMARY | 2025-04-09 09:59 | XMS_ITS | Encounter Summary ---
Author Organization [facility] Address [address] [place] [address] Phone Care Team Providers Care Highway Patrol Commander Name Role Phone Ej Frausto MD Primary Care Provider [phone] Encounter Details Date Type Department Care Team (Late st Contact Info) Description 01/22/2022 Orders Only [facility] [address] [place] [address] Conversion, Onbase Social History Tobacco Use Types [...] Description 08/25/2025 11:10 AM EDT Office Visit [place] [address] [facility] 250 [place] [address] Marcus Recinos MD 703 [facility] 2, [facility] 250 [place] [address] Scheduled Orders Name Type Priority Associated Diagnoses Orde r Schedule OUTSIDE LAB SCAN Lab Ordered: 01/22/2022 documented as of this encounter Visit Diagnoses Not on filedocumented in this encounter Care Teams Highway Patrol Commander Relationship Specialty Start Date End Date Ej Frausto MD [address] [facility] [place] [address] PCP - General 11/04/99 documented as of this encounter
--- OUTSIDE RECORDS SUMMARY | 2025-04-09 09:59 | XMS_ITS | Encounter Summary ---
Author Organization [facility] Address [address] [place] [address] Phone Care Team Providers Care Cut Off Saw Operator Metal Name Role Phone Ej Frausto MD Primary Care Provider [phone] Encounter Details Date Type Department Care Team (Late st Contact Info) Description 05/28/2024 Scanned Document [facility] [address] [place] [phone] Scanning, Generic Provider Social History Tobacco Use [...] Description 08/25/2025 11:10 AM EDT Office Visit [facility] 703 [facility] 250 [place] [address] Marcus Recinos MD 703 [facility] 2, [address] [place] [address] documented as of this encounter Visit Diagnoses Not on filedocumented in this encounter Additional Health Concerns Assessment Noted Time A fall risk assessment has been complete d for the patient 12/04/2023 9:04 AM EST documented as of this encounter Care Teams Cut Off Saw Operator Metal Relationship Specialty Start Date End Date Ej Frausto MD [address] [place] [address] PCP - General 11/04/99 documented as of this encounter
--- OUTSIDE RECORDS SUMMARY | 2025-04-09 09:59 | XMS_ITS | Encounter Summary ---
Author Organization [facility] Address [address] [place] [address] Phone Care Team Providers Care Workplace Trainer And Assessor Name Role Phone Ej Frausto MD Primary Care Provider [phone] Encounter Details Date Type Department Care Team (Late st Contact Info) Description 05/27/2024 Scanned Document [facility] [place] [facility] [address] [place] [address] Scanning, Generic Provider Social History Tobacco Use [...] Description 08/25/2025 11:10 AM EDT Office Visit [facility] 703 [facility] 250 [place] [address] Marcus Recinos MD 703 [facility] 2, [address] [place], [place] [address] documented as of this encounter Procedures Procedure [...] documented as of this encounter Care Teams Workplace Trainer And Assessor Relationship Specialty Start Date End Date Ej Frausto MD [address] [place] [address] PCP - General 11/04/99 documented as of this encounter
--- OUTSIDE RECORDS SUMMARY | 2025-04-09 09:59 | XMS_ITS | Encounter Summary ---
Author Organization [facility] Address [address] [place] [address] Phone Care Team Providers Care Mixing Tumbler Operator Name Role Phone Ej Frausto MD Primary Care Provider [phone] Encounter Details Date Type Department Care Team (Late st Contact Info) Description 12/10/2022 Orders Only [facility] [address] [place] [address] Conversion, Onbase Social History Tobacco Use Types [...] Description 08/25/2025 11:10 AM EDT Office Visit [place] [id number] [facility] 250 [place] [address] Marcus Recinos MD 703 [facility] 2, [facility] 250 [place] [address] Scheduled Orders Name Type Priority Associated Diagnoses Orde r Schedule OUTSIDE LAB SCAN Lab Ordered: 12/10/2022 documented as of this encounter Visit Diagnoses Not on filedocumented in this encounter Care Teams Mixing Tumbler Operator Relationship Specialty Start Date End Date Ej Frausto MD [address] [place] [address] PCP - General 11/04/99 documented as of this encounter
--- OUTSIDE RECORDS SUMMARY | 2025-04-09 09:59 | XMS_ITS | Encounter Summary ---
Author Organization [facility] Address [address] [place] [address] Phone Care Team Providers Care Filenet Developer Name Role Phone Ej Frausto MD Primary Care Provider [phone] Encounter Details Date Type Department Care Team (Late st Contact Info) Description 10/22/2022 Orders Only [facility] [address] [place] [address] Conversion, Onbase Social History Tobacco Use Types [...] Description 08/25/2025 11:10 AM EDT Office Visit [place] 986[address] [facility] 250 [place] [address] Marcus Recinos MD 703 [facility] 2, [facility] 250 [place], [place] [address] Scheduled Orders Name Type Priority Associated Diagnoses Orde r Schedule OUTSIDE LAB SCAN Lab Ordered: 10/22/2022 documented as of this encounter Visit Diagnoses Not on filedocumented in this encounter Care Teams Filenet Developer Relationship Specialty Start Date End Date Ej Frausto MD [address] [facility] [place] [address] PCP - General 11/04/99 documented as of this encounter
--- OUTSIDE RECORDS SUMMARY | 2025-04-09 09:59 | XMS_ITS | Encounter Summary ---
Author Organization [facility] [place] [facility] Address [address] [place] [address] Phone Care Team Providers Care Design Printer Balloon Name Role Phone Ej Frausto MD Primary Care Provider [phone] Encounter Details Date Type Department Care Team (Late st Contact Info) Description 07/16/2023 Orders Only [facility] [address] [place] [address] Conversion, Onbase Social History Tobacco Use Types [...] Description 08/25/2025 11:10 AM EDT Office Visit [place] 735593 [facility] 250 [place] [address] Marcus Recinos MD 703 [facility] 2, [facility] 250 [place] [address] Scheduled Orders Name Type Priority Associated Diagnoses Orde r Schedule OUTSIDE LAB SCAN Lab Ordered: 07/16/2023 documented as of this encounter Visit Diagnoses Not on filedocumented in this encounter Care Teams Design Printer Balloon Relationship Specialty Start Date End Date Ej Frausto MD [address] [facility] [place] [address] PCP - General 11/04/99 documented as of this encounter
--- OUTSIDE RECORDS SUMMARY | 2025-04-09 09:59 | XMS_ITS | Encounter Summary ---
Author Organization [facility] Address [address] [place] [address] Phone Care Team Providers Care Pit Inspector Name Role Phone Ej Frausto MD Primary Care Provider [phone] Encounter Details Date Type Department Care Team (Late st Contact Info) Description 12/28/2024 Scanned Document [facility] [address] [place] [address] Scanning, Generic Provider Social History Tobacco Use [...] Description 08/25/2025 11:10 AM EDT Office Visit [facility] 703 [facility] 250 [place] [address] Marcus Recinos MD 703 [facility] 2, [address] [place], [place] [address] documented as of this encounter Procedures Procedure [...] documented as of this encounter Care Teams Pit Inspector Relationship Specialty Start Date End Date Ej Frausto MD [address] [place] [address] PCP - General 11/04/99 documented as of this encounter
--- OUTSIDE RECORDS SUMMARY | 2025-04-09 09:59 | XMS_ITS | Encounter Summary ---
Author Organization [facility] Address [address] [place] [address] Phone Care Team Providers Care Commercial Baking Teacher Name Role Phone Ej Frausto MD Primary Care Provider [phone] Encounter Details Date Type Department Care Team (Late st Contact Info) Description 03/08/2023 Orders Only [facility] [address] [place] [address] Conversion, Onbase Social History Tobacco Use Types [...] Description 08/25/2025 11:10 AM EDT Office Visit [place] 296[address] [facility] 250 [place] [address] Marcus Recinos MD 703 [facility] 2, [facility] 250 [place] [address] Scheduled Orders Name Type Priority Associated Diagnoses Orde r Schedule OUTSIDE LAB SCAN Lab Ordered: 03/08/2023 documented as of this encounter Visit Diagnoses Not on filedocumented in this encounter Care Teams Commercial Baking Teacher Relationship Specialty Start Date End Date Ej Frausto MD [address] [facility] [place] [address] PCP - General 11/04/99 documented as of this encounter
--- OUTSIDE RECORDS SUMMARY | 2025-04-09 09:59 | XMS_ITS | Encounter Summary ---
Author Organization [facility] Address [address] [place] [address] Phone Care Team Providers Care Research Program Coordinator Name Role Phone Ej Frausto MD Primary Care Provider [phone] Encounter Details Date Type Department Care Team (Late st Contact Info) Description 01/21/2022 Orders Only [facility] [address] [place] [address] Conversion, Onbase Social History Tobacco Use Types [...] Description 08/25/2025 11:10 AM EDT Office Visit [place] 093853 [facility] 250 [place] [address] Marcus Recinos MD 703 [facility] 2, [facility] 250 [place] [address] Scheduled Orders Name Type Priority Associated Diagnoses Orde r Schedule OUTSIDE LAB SCAN Lab Ordered: 01/21/2022 documented as of this encounter Visit Diagnoses Not on filedocumented in this encounter Care Teams Research Program Coordinator Relationship Specialty Start Date End Date Ej Frausto MD [address] [facility] [place] [address] PCP - General 11/04/99 documented as of this encounter
--- OUTSIDE RECORDS SUMMARY | 2025-04-09 09:59 | XMS_ITS | Encounter Summary ---
Author Organization [facility] [place] [facility] Address [address] [place] [address] Phone Care Team Providers Care Auction Assistant Name Role Phone Ej Frausto MD Primary Care Provider [phone] Encounter Details Date Type Department Care Team (Late st Contact Info) Description 07/28/2024 Scanned Document [facility] [address] [place] [address] Scanning, Generic Provider Social History Tobacco Use [...] Description 08/25/2025 11:10 AM EDT Office Visit [facility] 703 [facility] [place] [place] [address] Marcus Recinos MD 703 [facility] 2, [address] [place], [place] [address] documented as of this encounter Procedures Procedure [...] documented as of this encounter Care Teams Auction Assistant Relationship Specialty Start Date End Date Ej Frausto MD [address] [place] [id number] PCP - General 11/04/99 documented as of this encounter
--- OUTSIDE RECORDS SUMMARY | 2025-04-09 09:59 | XMS_ITS | Encounter Summary ---
Author Organization [facility] Address [address] [place] [address] Phone Care Team Providers Care Aniline Press Worker Name Role Phone Ej Frausto MD Primary Care Provider [phone] Encounter Details Date Type Department Care Team (Late st Contact Info) Description 01/01/2023 Orders Only [facility] [address] [place] [address] Conversion, Onbase Social History Tobacco Use Types [...] Description 08/25/2025 11:10 AM EDT Office Visit [place] 815783 [facility] 250 [place] [address] Marcus Recnios MD 703 [place] [facility] 2, [facility] 250 [place] [address] Scheduled Orders Name Type Priority Associated Diagnoses Orde r Schedule OUTSIDE LAB SCAN Lab Ordered: 01/01/2023 documented as of this encounter Visit Diagnoses Not on filedocumented in this encounter Care Teams Aniline Press Worker Relationship Specialty Start Date End Date Ej Frausto MD [address] [facility] [place] [address] PCP - General 11/04/99 documented as of this encounter
--- OUTSIDE RECORDS SUMMARY | 2025-04-09 09:59 | XMS_ITS | Encounter Summary ---
Author Organization [facility] Address [address] [place] [address] Phone Care Team Providers Care Stockroom Associate Name Role Phone Ej Frausto MD Primary Care Provider [phone] Encounter Details Date Type Department Care Team (Late st Contact Info) Description 11/26/2022 Orders Only [facility] [address] [place] [address] Conversion, Onbase Social History Tobacco Use Types [...] Description 08/25/2025 11:10 AM EDT Office Visit [place] 529[address] [facility] 250 [place] [address] Marcus Recinos MD 703 [facility] 2, [facility] 250 [place] [address] Scheduled Orders Name Type Priority Associated Diagnoses Orde r Schedule OUTSIDE LAB SCAN Lab Ordered: 11/26/2022 documented as of this encounter Visit Diagnoses Not on filedocumented in this encounter Care Teams Stockroom Associate Relationship Specialty Start Date End Date Ej Frausto MD [address] [facility] [place] [address] PCP - General 11/04/99 documented as of this encounter
--- OUTSIDE RECORDS SUMMARY | 2025-04-09 09:59 | XMS_ITS | Encounter Summary ---
Author Organization [facility] Address [address] [place] [address] Phone Care Team Providers Care Dynamics Ax Consultant Name Role Phone Ej Frausto MD Primary Care Provider [phone] Encounter Details Date Type Department Care Team (Late st Contact Info) Description 01/23/2022 Orders Only [facility] [address] [place] [address] Conversion, Onbase Social History Tobacco Use Types [...] Description 08/25/2025 11:10 AM EDT Office Visit [place] 388563 [facility] 250 [place] [address] Marcus Recinos MD 703 [facility] 2, [facility] [address] [place] [address] Scheduled Orders Name Type Priority Associated Diagnoses Orde r Schedule OUTSIDE LAB SCAN Lab Ordered: 01/23/2022 documented as of this encounter Visit Diagnoses Not on filedocumented in this encounter Care Teams Dynamics Ax Consultant Relationship Specialty Start Date End Date Ej Frausto MD [address] [facility] [place] [address] PCP - General 11/04/99 documented as of this encounter
--- OUTSIDE RECORDS SUMMARY | 2025-04-09 09:59 | XMS_ITS | Encounter Summary ---
Author Organization [facility] Address [address] [place] [address] Phone Care Team Providers Care Lecturer Of Portuguese Name Role Phone Ej Frausto MD Primary Care Provider [phone] Encounter Details Date Type Department Care Team (Late st Contact Info) Description 01/11/2023 Orders Only [facility] [address] [place] [address] Conversion, Onbase Social History Tobacco Use Types [...] Description 08/25/2025 11:10 AM EDT Office Visit [place] 775533 [facility] 250 [place] [address] Marcus Recinos MD 703 [facility] 2, [facility] 250 [place] [address] Scheduled Orders Name Type Priority Associated Diagnoses Orde r Schedule OUTSIDE LAB SCAN Lab Ordered: 01/11/2023 documented as of this encounter Visit Diagnoses Not on filedocumented in this encounter Care Teams Lecturer Of Portuguese Relationship Specialty Start Date End Date Ej Frausto MD [address] [facility] [place] [address] PCP - General 11/04/99 documented as of this encounter
== END 2025-04-09 09:56 | disposition home or self-care (01) ==
LOC: CARD 09:56
PROVIDERS: PCP Family Medicine; Visit Provider Family Medicine
DX: I48.92 Unspecified atrial flutter (principal)

== ENCOUNTER 2025-04-15 11:32 | Outpatient (OUT) | payer MEDICARE, SELFPAY ==
[2025-04-15 12:29] LABS: Free T3 1.85 pg/mL (2.18-3.98); Thyroid Stimulating Hormone 2.965 uIU/mL (0.358-3.740)
== END 2025-04-15 11:33 | disposition home or self-care (01) ==
LOC: LAB 11:32
PROVIDERS: PCP Family Medicine; Visit Provider Family Medicine
DX: R94.6 Abnormal results of thyroid function studies (principal)
CPT/HCPCS: 36415; 84436; 84443; 84481

== ENCOUNTER 2025-05-20 10:02 | Outpatient (OUT) | payer MEDICARE, SELFPAY ==
--- OUTSIDE RECORDS SUMMARY | 2025-04-01 10:45 | XMS_ITS ---
Author Organization [facility] [place] Address [address] [place] [address] Care Team Providers Care Mine Laborer Name Role Phone FrancoiJm mcmahon Primary Care Provider Allergies Allergen (clinical drug ingredient) Drug/Non Drug Allergy documented on EMR Reaction Allergy Type Onset Date Status ciprofloxacin Ciprofloxacin rash Drug Allergy Active REASON FOR VISIT [facility] [place] F/U- there 03/29/25- fall- did x-ray on shoulder and was told fine- did scan of head and no concerns for bleeding (sent over records request), Left shoulder pain and down into the bicep and over into the chest area, Patient said does have RIVERA- was going on before the fall, seems like gettingworse, Sees Dr Joshua GUTHRIE- said has had an EKG about a month or so ago Medications Medication SIG (Take, Route, Frequency, Duration) Notes Start Date End Date Status Lancets 33G - use 1 lancet Dx: E11 .9 once daily for 90 days 07/24/2023 Active Amiodarone HCl 200 MG Oral for 90 Days Active Aspirin 81 81 MG 1 tablet Orally once a week Active Levothyroxine Sodium 50 MCG 1 tablet in the morning on an empty stomach Orally Once a day for 30 days 03/16/2025 Active Tamsulosin HCl 0.4 MG TAKE 1 CAPSULE BY MOUTH EVERY DAY for 90 Active Xarelto 20 MG 1 tablet Orally Once a day for 90 days Active PreserVision AREDS A ctive Spironolactone 25 MG TAKE 1/2 TABLET BY MOUTH EVERY DAY for 90 days Active Pravastatin Sodium 40 MG Oral for 90 Days Active Pantoprazole Sodium 40 MG TAKE 1 TABLET BY MOUTH EVERY DAY for 90 Active Social History Tobacco Use: Social History Observation Description Date Details (start date - stop date) Former Smoker 04/04/1968 - 11/04/2020 Tobacco Use/Smoking Question Answer Notes Patient is a former smoker When did you start smoking? 04/04/1968 When did you stop smoking? 11/04/2020 How long has it been since you last smoked? 1-5 years Additional Findings: Tobacco Non-User Ex-cigaret te smoker Problems Problem Type SNOMED Code ICD Code Onset Dates Problem Status W/U Status Risk Notes Problem Biceps tendon rupture, left, initial encounter (S46.112A) Active confirmed Vital Signs Blood pressure systolic 118 mm Hg 04/01/20 25 Blood pressure diastolic 76 mm Hg 025 Heart Rate 70 /min 04/01/2025 Height 72 in 04/01/2025 Weight 221.6 lbs 04/01/2025 BMI 30.05 kg/m2 04/01/2025 Oximetry 97 % 04/01/2025 Procedures Procedure Date Ordered Date Performed Result Body Sit e Holter Monitor - 3 days up to 14 days 04/01/2025 N/A Encounters Encounter Location Date Provider Diagnosis [facility] [address] [place] [address] 04/01/2025 Jim Frausto Atrial flutter I48.9 2 and Biceps tendon rupture, left, initial encounter S46.112A Assessments Encounter Date Diagnosis (ICD Code) Assessment Notes Treatment Notes Treatment Clinical Notes Section Notes 04/01/2025 Atrial flutter (ICD-10 - I48.92) 04/01/2025 Biceps tendon rupture, left, initial encounter (ICD-10 - S46.112A) Plan Of Treatment Pending Test Test Name Order Date Holter Monitor - 3 days up to 14 days Progress Notes * Darrius VAUGHANDOB:1955 ( 69 yo M)Acc No.[id number]:04/01/2025 Progress Note Patient: Darrius HERNANDEZ Provider: Eneida Frausto ([facility])MD :1955 A ge:69 Y S ex:Male Date:04/01/2025 Address:[address] [place], [place] [address] Check In:02:40 PM ESTCheck O ut:03:15 PM EST Subjective: * Chief Complaints: * F [facility] [place] F/U- there 03/29/25- fall- did x-ray on shoulder and was told fine- did scan of head and no concerns for bleeding (sent over records request)Left shoulder pain and down into the bicep and over into the chest areaPatient said does have RIVERA- was going on before the fall, seems like getting worseSees Dr Joshua GUTHRIE- said has had an EKG about a month or so ago * HPI: G eneral: Left shoulder - lots of bruising - muscle -. * ROS: E ENT: hearing changes d enies. v isual changes d enies.�non-healing mouth sores d enies. s wollen glands or neck lumps d enies. h oarseness d enies. s ore throat d enies. d ifficulty swallowing d enies. n ose bleeds d enies. n karthik congestion d enies. e ar ache d enies. e ar discharge�denies. r inging in ears d enies. l ight sensitivity d enies. e ye pain d enies. b lurring d enies. e ye irritation d enies. d ouble vision d enies.�vision loss d enies. G eneral/Constitutional: Sweats: D enies. F atigue d enies. S leep problems d enies. A norexia d enies. M alaise d enies. W eight loss d enies.�Fatigue or Weakness d enies. F ever or Chills d enies. C ardiovascular: Shortness of Breath w/lying flat d enies. L ightheadedness/dizziness d enies. C hest tightness/ heavy pressure d enies. S welling of legs, ankles, or feet d enies. W aking up with shortness of breath d enies. C hest pain denies. P alpitations d enies. W eight gain d enies. R espiratory: Chronic or frequent cough d enies. C oughing up blood�denies. D ifficulty breathing d enies. P roductive cough d enies. S noring�denies. S hortness of breath that awakens from sleep (PND) d enies. C hest pain d enies. S putum production d enies. W heezing d enies. M usculoskeletal: Joint pain d enies. J oint Fluid d enies. B ack pain d enies. K nee pain d enies. N viji pain d enies. J oint Stiffness d enies. M uscle cramps d enies. W eakness of muscles d enies. A rthritis d enies. M uscle aches d enies. P ain in shoulder(s) d enies. S wollen joints d enies. * Active Problem List E11.65 Type 2 [...] Hyperlipemia Modified On:01/08/2024 Status:confirmed E05.90 Hyperthyroidism Modified On:01/08/2024U Status:confirmed I48.92 Unspecified atrial f lutter Modified On:01/21/2024 Status:confirmed J01.90 Acute sinus infectio n Modified On:02/13/2024 Status:confirmed K57.30 Diverticulosis of la rge intestine without perforation or abscess without bleeding Modified On:02/21/2024 Status:confirmed H61.20 Cerumen impaction Modified On:03/12/2024U Status:confirmed E03.9 Hypothyroid Modified On:05/01/2025W/U Status:confirmed K76.0 Fatty liver Modified On:03/18/2025W/U Status:confirmed S46.112A Biceps tendon ruptur e, left, initial encounter Modified On:04/01/2025W/U Status:confirmed * Medical History: * Surgical History: A ppendix Gallbladder Hernia x3 Colonoscopy 04/12/21eye injections for macular degeneration * Hospitalization/Major Diagno stic Procedure: D enies Past Hospitalization * Family History: F ather: . M other: , diagnosed with Diabetes mellitus without mention of complication, type II or unspecified type, not stated as uncontrolled. B rother(s): alive. S ister(s): alive. S on(s): alive. D aughter(s): alive. 2 brother(s) , 3 sister(s) - healthy. 1 son(s) , 3 daughter(s) - healthy. . * Social History: T obacco Use: T obacco Use/Smoking P atient is a f ormer smoker W hen did you start smoking? 0 04/04/1968 W hen did you stop smoking? H ow long has it been since you last smoked?�1-5 years A dditional Findings: Tobacco Non-User E x-cigarette smoker * Medications: T akingAmiodarone HCl 200 MG Tablet Oral Aspirin 81(Aspirin) 81 MG Tablet Delayed Release 1 tablet Orally once a week Lancets 33G(Lancets) - Miscellaneous use 1 lancet Dx: E11.9 once daily Levothyroxine Sodium 50 MCG Tablet 1 tablet in the morning on an empty stomach Orally Once a day Pantoprazole Sodium 40 MG Tablet Delayed Release TAKE 1 TABLET BY MOUTH EVERY DAY Pravastatin Sodium 40 MG Tablet Oral PreserVision AREDS Spironolactone 25 MG Tablet TAKE 1/2 TABLET BY MOUTH EVERY DAY Tamsulosin HCl 0.4 MG Capsule TAKE 1 CAPSULE BY MOUTH EVERY DAY Xarelto(Rivaroxaban) 20 MG Tablet 1 tablet Orally Once a day Taking Amiodarone HCl 200 MG Tablet Oral Taking Aspirin 81(Aspirin) 81 MG Tablet Delayed Release 1 tablet Orally once a week Taking Lancets 33G(Lancets) - Miscellaneous use 1 lancet Dx: E11.9 once daily Taking Levothyroxine Sodium 50 MCG Tablet 1 tablet in the morning on an empty stomach Orally Once a day Taking Pantoprazole Sodium 40 MG Tablet Delayed Release TAKE 1 TABLET BY MOUTH EVERY DAY Taking Pravastatin Sodium 40 MG Tablet Oral Taking PreserVision AREDS Taking Spironolactone 25 MG Tablet TAKE 1/2 TABLET BY MOUTH EVERY DAY Taking Tamsulosin HCl 0.4 MG Capsule TAKE 1 CAPSULE BY MOUTH EVERY DAY Taking Xarelto(Rivaroxaban) 20 MG Tablet 1 tablet Orally Once a day DiscontinuedNaproxen 500 MG Tablet 1 tablet with food or milk as needed Orally every 12 hrs Medication List reviewed and reconciled with the patientDiscontinued Naproxen 500 MG Tablet 1 tablet with food or milk as needed Orally every 12 hrs Medication List reviewed and reconciled with the patient * Allergies: C iprofloxacin: jw[Allergies Verified] Objective: * Vitals: W t:221.6lbs, Ht: 72 in, BP:118/76mm Hg, HR:70/min, BMI:30.05Index, Oxygen sat %:97%, Ht-cm: 182.88 cm, Wt-k.52 kg. * Examination: P hysical Exam: GENERAL: w ell developed, well nourished, in no acute distress. HEAD: n ormocephalic/atraumatic. EYES: p upils equal, round and reactive to light, conjunctivae and sclerae normal. EARS: n o deformity or lesion of external ear, canals and TM appear normal bilaterally, TM's intact, not inflamed with normal light reflex, hearing grossly normal to conversational speech. NOSE: n o deformity, discharge, inflammation, or lesions.� MOUTH: m ucous membranes moist, normal oropharynx and posterior pharynx without lesions or exudates, tongue normal, dentition normal. NECK: n viji supple, no masses or palpable cervical nodes, trachea midline, thyroid without nodules, masses, tenderness, or enlargement. CHEST: n o chest wall deformity, no chest wall tenderness.� LUNGS: n ormal respiratory effort and clear to auscultation, no wheezes, rales, or rhonchi, good air exchange. CARDIO: r egular rate and rhythm, normal S1 and S2, nor murmur, rub, or gallop. PULSES: n ormal capillary refill. ABDOMEN: s oft, non-distended, non-tender, no masses. MUSCULOSKELETAL: n o deformity or scoliosis noted, normal range of motion, joints normal, no erythema, edema, effusion, or ecchymosis. EXTREMITY: n o clubbing, cyanosis, edema, or deformity with normal ROM in both upper and lower bilateral extremities. NEUROLOGIC: g rossly normal. SKIN: n o rashes, ulcerations, or suspicious lesions. LYMPH NODES: n o cervical adenopathy, nodes normal. MENTAL STATUS: a lert and oriented x3, normal mood and affect. Assessment: * Assessment: 1. A trial flutter - I48.92 (Primary) 2 . B iceps tendon rupture, left, initial encounter - S46.112A Plan: * Treatment: * Procedure Codes: * Preventive Medicine: Screenings/Counseling: B DE ACTION PLAN Above Normal BMI Follow-up D ietary management education, guidance, and counseling * * Sign off status: Completed Visit Status: C HK (Check Out) true * Provider: Eneida Frausto ([facility])MD Date: 0 04/01/2025 Generated for Printi ng/Faxing/eTransmitting on: 0 05/20/2025 10:05 AM EDT History and Physical Notes * HPI (History of Present Illness) Category Sub-Category Detail Notes Category Not es General Left shoulder - lots of bruising - muscle - Examination Category Sub-Category Detail Notes Category Not es Physical Exam GENERAL: well developed, well nourished, in no acute distress HEAD: normocephalic/atraum atic EYES: pupils equal, round and reactive to light, conjunctivae and sclerae normal EARS: no deformity or lesi on of external ear, canals and TM appear normal bilaterally, TM's intact, not inflamed with normal light reflex, hearing grossly normal to conversational speech NOSE: no deformity, discha rge, inflammation, or lesions MOUTH: mucous membranes lillian st, normal oropharynx and posterior pharynx without lesions or exudates, tongue normal, dentition normal NECK: neck supple, no mass es or palpable cervical nodes, trachea midline, thyroid without nodules, masses, tenderness, or enlargement CHEST: no chest wall deform ity, no chest wall tenderness LUNGS: normal respiratory e ffort and clear to auscultation, no wheezes, rales, or rhonchi, good air exchange CARDIO: regular rate and rhy thm, normal S1 and S2, nor murmur, rub, or gallop PULSES: normal capillary ref ill ABDOMEN: soft, non-distended, non-tender, no masses RECTAL: MUSCULOSKELETAL: no deformity or scol iosis noted, normal range of motion, joints normal, no erythema, edema, effusion, or ecchymosis EXTREMITY: no clubbing, cyanosi s, edema, or deformity with normal ROM in both upper and lower bilateral extremities NEUROLOGIC: grossly normal SKIN: no rashes, ulceratio ns, or suspicious lesions LYMPH NODES: no cervical adenopat hy, nodes normal MENTAL STATUS: alert and oriented x 3, normal mood and affect
--- OUTSIDE RECORDS SUMMARY | 2025-04-15 08:54 | XMS_ITS ---
Author Organization [facility] [place] Address [address] [place] [address] Care Team Providers Care Block Captain Name Role Phone FrancosalomeJim Primary Care Provider REASON FOR VISIT t4 Medications Medication SIG (Take, Route, Frequency, Duration) Notes Start Date End Date Status Levothyroxine Sodium 50 MCG 25 mcg on od d days and 50mcg on even says Orally Once a day for 30 days 03/16/2025 Active Encounters Encounter Location Date Provider Diagnosis [facility] [address] [place] [address] 04/15/2025 Jim Frausto Hyperthyroidism E05. 90 Assessments Encounter Date Diagnosis (ICD Code) Assessment Notes Treatment Notes Treatment Clinical Notes Section Notes 04/15/2025 Hyperthyroidism (ICD-10 - E05.90) Plan Of Treatment Medication Medication Name Sig Start Date Stop Date Notes Levothyroxine Sodium 50 MCG 25 mcg on od d days and 50mcg on even says Orally Once a day for 30 days 03/16/2025 Pending Test Test Name Order Date THYROID PANEL (T4/TSH/FREE T3) Progress Notes * Darrius VAUGHANDOB:1955 ( 69 yo M)Acc No.[id number]:04/15/2025 Patient: Timur DAVISQuentiner :1955 A ge:69 Y S ex:Male Address:[address] [place] [address] [place] [id number] * Refills Refill Levothyroxine Sodium Tablet, 50 MCG, Orally, 25 mcg on odd days and 50mcg on even says, Once a day, 30 days, Refills=11 Subjective: * Chief Complaints: * T 4 * Medical History: * Surgical History: * Hospitalization/Major Diagno stic Procedure: * Medications: Objective: * Vitals: * Physical Examination: Assessment: * Assessment: 1. H yperthyroidism - E05.90 (Primary) Plan: * Treatment: 2. O thers Refill Levothyroxine Sodium Tablet, 50 MCG, 25 mcg on odd days and 50mcg on even says, Orally, Once a day, 30 days, Refills 11. * Procedure Codes: * true * Date: Generated for Bernarda norwood/Sandie/Yesenia on: 0 05/20/2025 10:05 AM EDT
--- OUTSIDE RECORDS SUMMARY | 2025-05-20 10:05 | XMS_ITS | Clinical Summary ---
Author Organization [facility] Address [address] [place] [address] Phone Care Team Providers Care Research Hydrologist Name Role Phone Ej Frausto MD Primary Care Provider [phone] Allergies Active Allergy Reactions Criticality Noted Date [...] mg) by mouth once daily. Active vitamins A,C,D-wjnl-swibyu (PreserVision AREDS) 2,148 mcg-113 mg-45 mg-17.4mg tablet [...] to breakfast Active aspirin 81 mg EC tabletIndications: Atrial flutter, unspecified type (Multi) Take 1 tablet (81 mg) by mouth 1 (one) time per week. 06/07/20 25 Active pravastatin (Pravachol) 40 mg tabletIndications: Mixed hyperlipidemia Take 1 tablet (40 mg) by mouth once daily. 90 tablet 3 4 09/11/20 25 Active apixaban (Eliquis) 5 mg tabletIndications: Atrial flutter, unspecified type (Multi),High risk medication use Take 1 tablet (5 mg) by mouth 2 times a day. 180 tablet 3 5 01/07/20 26 Active amiodarone (Pacerone) 200 mg tabletIndications: Unspecified atrial flutter (Multi) Take 1 tablet (200 mg) by mouth once daily. 90 tablet 1 5 Active Active Problems Problem Noted Date Diagnosed Date BMI 30.0-30.9,adult 06/03/2024 Former smoker 06/03/2024 Atrial flutter (Multi) 10/14/2023 Essential hypertension 10/14/2023 Hyperlipidemia 10/14/2023 COPD (chronic obstructive pulmonary disease) (Mu lti) 10/14/2023 Shortness of breath 10/14/2023 High risk medication use 10/14/2023 Encounters Date Type Department Care Team Description 04/05/[address] [address] Mary Cosby RN 03/22/[address] [address] Jade Flores CMA 03/18/2025 8:30 AM EDT - 03/18/2025 11:59 PM EDT Hospital Encounter [address] [place] [address] Essential hypertension; Atypical atrial flutter; Mixed hyperlipidemia; Former smoker Discharge Disposition: Home 03/18/2025 Travel 03/17/[address] [address] Maria Esther Recinos MD Unspecified atrial flutter [...] Care Team (Late st Contact Info) Description 06/17/2025 2:30 PM EDT Appointment [facility] [address] [facility] [address] [place] [address] 08/25/2025 11:10 AM EDT Office Visit [address] [place] [address] Maria Esther Recinos MD [address] [facility] [address] [place] [address] Health Maintenance Due Date Last Done Comments [...] it (AWV) 01/20/2025 01/20/2024, 10/02/2022 Influenza Vaccine (#1) 2025 Colonoscopy 04/12/2031 04/12/2021 Colorectal Cancer Screening [...] Procedure Name Priority Date/Time Associated Diagnosis Comments [facility] US ABDOMINAL AORTA ANEURYSM AAA SCREENING Routine 03/18/2025 8:55 AM EDT Essential hypertension Atypical atrial flutter Mixed hyperlipidemia Former smoker from Last 3 Months Results * Vascular US Abdominal Aorta Aneurysm AAA Screening (03/18/2025 8:55 AM EDT) Anatomical Region Laterality Modality Abdomen Echocardiography 03/18/2025 8:40 AM EDT Narrative 03/20/2025 4:43 PM EDT [address], [address] [address] Vascular Lab Report VAS US ABDOMINAL AORTA ANEURYSM AAA SCREENING Patient Name: REMEDIOS Black Physician: [id number] Maria Esther Recinos MD, [facility] Study Date: 03/18/2025 Ordering Provider: [id number] MARIA ESTHER RECINOS MRN/PID: [id number] Fellow: Technologist: Yadira Atkins RD, RVT Date of /Age: 12 1955 / 69 years Technologist 2: Gender: M Admission Status: Outpatient Location Performed: [facility] Diagnosis/ICD: Essential primary hypertension-I10; Personal history of tobacco use-Z87.891 Indication: Hyperlipidemia, Atrial Flutter, COPD CPT Codes: 73375 Ultrasound, abdominal aorta, real time with image documentation, screening study for (AAA) CONCLUSIONS: Imaging & Doppler Findings: AORTA AP Lateral Distal 2.53 cm 2.44 cm Shantel Recinos MD, FACC Final Procedure Note Maria Esther Recinos MD - 03/20/[address], [address] [address] Vascular Lab Report [facility] ABDOMINAL AORTA ANEURYSM AAA SCREENING Patient Name: REMEDIOS Black Physician: Jessica Recinos MD, FACC Study Date: 03/18/2025 Ordering Provider: [id number] RECINOS MRN/PID: [id number] Fellow: Technologist: Yadira Cam RVT Date of /Age: 12 1955 / 69 years Technologist 2: Gender: M Admission Status: Outpatient Location Performed: [facility] Diagnosis/ICD: Essential primary hypertension-I10; Personal history oftobacco use-Z87.891 Indication: Hyperlipidemia, Atrial Flutter, COPD CPT Codes: 22503 Ultrasound, abdominal aorta, real time with image documentation, screening study for (AAA) CONCLUSIONS: Imaging & Doppler Findings: AORTA AP Lateral Distal 2.53 cm 2.44 cm Shantel Recinos MD, FACC at4:43:10 PM Final Result [facility] Maria Esther Recinos MD CV VASCULAR PROCEDURES Final Result from Last 3 Months Insurance MEDICARE PART A AND B [employer] SENIOR SUPPLEMENT MEDICARE PART A AND B [employer] SENIOR SUPPLEMENT Care Teams Research Hydrologist Relationship Specialty Start Date End Date Ej Frausto MD [address] [place] [address] PCP - General 11/04/99
--- OUTSIDE RECORDS SUMMARY | 2025-05-20 10:05 | XMS_ITS | Patient Health Record ---
Author Organization [facility] in [place] Address [address] [place] [address] Care Team Providers Care Hearing Therapy Director Name Role Phone Jim Mccormick Primary Care Provider Allergies Allergen (clinical drug [...] 12:15:10 PM Interpretation: Performing Lab: Notes/Report: [facility] , Glycohemoglobin A1C 6.4 4.5-6.2 % ADA RECOMMENDED LIMIT 4.0 - 6.0 > 7.0 ADA THERAPEUTIC TARGET < 7.0 ACTION SUGGESTED Estimated Average Glucose 137 Performing Lab: see note ML - [facility] LB PROF CHEM 8 (BAS METB) Reviewed date:07/28/2024 12:15:10 PM Interpretation: Performing Lab: Notes/Report: [facility] , Sodium 137 136-145 mmol/L Potassium 4.5 3.5-5.1 mmol/L Chloride 102 98-107 mmol/L Carbon Dioxide 30.5 21.0-32.0 mmol/L Anion Gap 9.0 Glucose 127 74-106 mg/dL Blood Urea Nitrogen 15.0 7.0-18.0 mg/dL Creatinine 1.01 0.70-1.30 mg/dL Estimated GFR ( Mary >60 >=60 Estimated GFR (Non- Debby >60 >=60 BUN Creatinine Ratio 14.9 Calcium 9.1 8.5-10.1 mg/dL Performing Lab: see note ML - [facility] LB SGPT Reviewed date:07/28/2024 12:15:10 PM Interpretation: Performing Lab: Notes/Report: [facility] , Alanine Aminotransferase 167 16-63 U/L Performing Lab: see note ML - [facility] LB TSH Reviewed date:07/28/2024 12:15:10 PM Interpretation: Performing Lab: Notes/Report: [facility] , Thyroid Stimulating Hormone 2.950 0.358-3.740 uIU/mL Performing Lab: see note ML - [facility] LB RT pulmonary function test Reviewed date:12/29/2024 01:43:35 PM Interpretation: Performing Lab: Notes/Report: Source Facility: [place] [address] [place] [address] Respiratory Report Signed Patient: DARRIUS VAUGHAN MR#: [id number] : 1955 Acct:[id number] Age/Sex: 69 / M ADM Date: 12/28/24 Loc: LAB Attending Dr: MARIA ESTHER CORTES Ordering Physician: MARIA ESTHER CORTES Date of Service: 12/28/24 Procedure(s): RT pulmonary function test Accession Number(s): [id number] cc: [facility] Test Date: 2024-12-28 Pat Name: DARRIUS VAUGHAN Department: Room: - Gender: Male Tile [employer] Marble Installer: Rakesh Wagner RRT : 1955 Requested By: 358 Order Number: [id number] Wayne MD: Gasper Sewell Interpretive Statements Pulmonary [...] Signed By: 12/29/24 1139 DD/ 0849 TD/TT: School Manager: [place] [address] Respiratory Report Signed Patient: DARRIUS VAUGHAN MR#: [id number] : 1955 Acct:[id number] Age/Sex: 69 / M ADM Date: 12/28/24 Loc: LAB Attending Dr: MARIA ESTHER CORTES Ordering Physician: MARIA ESTHER CORTES Date of Service: 12/28/24 Procedure(s): RT pulmonary function test Accession Number(s): [id number] cc: [facility] Test Date: 2024-12-28 Pat Name: DARRIUS Kaur Department: 41 Room: - Gender: Male Tile And Marble Installer: Rakesh Wagner RRT : 1955 Requested By: 358 Order Number: [id number] Reading MD: Gasper Sewell Interpretive Statements Pulmonary [...] Signed By: 12/29/24 1139 DD/ 0849 TD/TT: School Manager: right upper quadrant Reviewed date:03/17/2025 07:08:53 PM Interpretation: Performing Lab: Notes/Report: Source Facility: [place] [address] Ultrasound Report Signed Patient: DARRIUS VAUGHAN MR#: [id number] : 1955 Acct:[id number] Age/Sex: 69 / M ADM Date: 03/17/25 Loc: US Attending Dr: Tirso Mccormick M.D. Ordering Physician: Tirso Mccormick M.D. Date of Service: 03/17/25 Procedure(s): right upper quadrant Accession Number(s): [id number] cc: Tirso Mccormick M.D. [address] [place] [address] Patient Name: DARRIUS VAUGHAN MRN: [id number] date: 1955 Sex: M Assigned Patient Location: US Current Patient Location: US Accession/Order Number: [id number] Exam Date: 03/17/2025 10:10 Report Date: 03/17/2025 [...] suggest hepatic steatosis. Impression dictated by: Donte Manzaanres M.D. 03/17/2025 10:13 AM Dictation Location: [place] [address] Electronically authenticated by: [id number] Y Date: 03/17/2025 10:13 Dictated By: Donte Manzanares M.D. Signed By: 03/17/25 1016 DD/ 1013 TD/TT: School Manager: [place] [address] Ultrasound Report Signed Patient: DARRIUS VAUGHAN MR#: [id number] : 1955 Acct:[id number] Age/Sex: 69 / M ADM Date: 03/17/25 Loc: US Attending Dr: Gabriella Mccormick M.D. Ordering Physician: Tirso Mccormick M.D. Date of Service: 03/17/25 Procedure(s): US rig ht upper quadrant Accession Number(s): [id number] cc: Tirso Mccormick M.D. [address] [address] Patient Name: DARRIUS VAUGHAN MRN: [id number] date: 1955 Sex: M Assigned Patient Location: US Current Patient Location: US Accession/Order Numb er: [id number] Exam Date: 03/17/2025 10:10 Report Date: 03/17/2025 [...] Manzanares M.D. 03/17/2025 10:13 AM Dictation Location: [place] [address] Electronically authenticated by: [id number] Y Date: 03/17/2025 10:13 Dictated By: Donte Manzanares M.D. Signed By: 03/17/25 1016 DD/ 1013 TD/TT: School Manager: CT abdomen pelvis wo con Reviewed date:03/25/2025 07:56:29 PM Interpretation: Performing Lab: Notes/Report: Source Facility: [place] [address] [place] [address] CT Scan Report Signed Patient: DARRIUS VAUGHAN MR#: [id number] : 1955 Acct:[id number] Age/Sex: 69 / M ADM Date: 03/25/25 Loc: CT Attending Dr: Tirso Mccormick M.D. Ordering Physician: Tirso Mccormick M.D. Date of Service: 03/25/25 Procedure(s): CT abdomen pelvis wo con Accession Number(s): [id number] cc: Tirso Mccormick M.D. [place] [address] Patient Name: DARRIUS VAUGHAN MRN: [id number] date: 1955 Sex: M Assigned Patient Location: CT Current Patient Location: CT Accession/Order Number: [id number] Exam Date: 03/25/2025 13:52 Report Date: 03/25/2025 [...] Gleason M.D. 03/25/2025 2:00 PM Dictation Location: [place] [address] Electronically authenticated by: [id number] Y Date: 03/25/2025 14:00 Dictated By: Nikki Gleason M.D. Signed By: 03/25/25 1403 DD/ 1400 TD/TT: School Manager: [address] [address] [address] Scan Report Signed Patient: DARRIUS VAUGHAN MR#: [id number] : 1955 Acct:[id number] Age/Sex: 69 / M ADM Date: 03/25/25 Loc: CT Attending Dr: Gabriella Mccormick M.D. Ordering Physician: Tirso Mccormick M.D. Date of Service: 03/25/25 Procedure(s): CT abdomen pelvis wo con Accession Number(s): [id number] cc: Tirso Mccormick M.D. [place] [address] Patient Name: DARRIUS VAUGHAN MRN: [id number] date: 1955 Sex: M Assigned Patient Location: CT Current Patient Location: CT Accession/Order Numb er: [id number] Exam Date: 03/25/2025 13:52 Report Date: 03/25/2025 [...] Gleason M.D. 03/25/2025 2:00 PM Dictation Location: [place] [address] Electronically authenticated by: [id number] Y Date: 03/25/2025 14:00 Dictated By: Nikki Gleason M.D. Signed By: 03/25/25 1403 DD/ 1400 TD/TT: School Manager: CHUCK T3 Reviewed date:04/15/2025 12:55:41 PM Interpretation: Performing Lab: Notes/Report: [facility] , Free T3 1.85 2.18-3.98 pg/mL Performing Lab: see note - [facility] LB T4 Reviewed date:04/15/2025 12:55:41 PM Interpretation: Performing Lab: Notes/Report: [facility] , T4 Thyroxine 14.50 4.50-12.10 ug/dL Performing Lab: see note - [facility] LB TSH Reviewed date:04/15/2025 12:55:41 PM Interpretation: Performing Lab: Notes/Report: [facility] , Thyroid Stimulating Hormone 2.965 0.358-3.740 uIU/mL Performing Lab: see note - [facility] LB TSH Reviewed date:03/14/2025 05:59:38 PM Interpretation: Performing Lab: Notes/Report: [facility] , Thyroid Stimulating Hormone 3.164 0.358-3.740 uIU/mL Performing Lab: see note ML - [facility] LB T4 Reviewed date:03/14/2025 05:59:38 PM Interpretation: Performing Lab: Notes/Report: [facility] , T4 Thyroxine 12.50 4.50-12.10 ug/dL Performing Lab: see note ML - [facility] PSA SCREENING Reviewed date:03/14/2025 05:59:38 PM Interpretation: Performing Lab: Notes/Report: [facility] , Prostate Specific Antigen Scrn 1.19 <=4.00 ng/mL Performing Lab: see note ML - [facility] PROF 14(COMP METB) Reviewed date:03/14/2025 05:59:38 PM Interpretation: Performing Lab: Notes/Report: [facility] , Sodium 136 136-145 mmol/L Potassium [...] 1.0 Performing Lab: see note ML - [facility] LB LIPID PROFILE Reviewed date:03/14/2025 05:59:38 PM Interpretation: Performing Lab: Notes/Report: [facility] , Triglycerides 67 <=150 mg/dL Cholesterol [...] RISK Performing Lab: see note ML - [facility] LB GLYCOHEMOGLOBIN A1C Reviewed date:03/14/2025 05:59:38 PM Interpretation: Performing Lab: Notes/Report: [facility] , Glycohemoglobin A1C 6.3 4.5-6.2 % > 7.0 ACTION SUGGESTED ADA THERAPEUTIC TARGET < 7.0 ADA RECOMMENDED LIMIT 4.0 - 6.0 Estimated Average Glucose 134 Performing Lab: see note ML - [facility] LB FREE T3 Reviewed date:03/14/2025 05:59:38 PM Interpretation: Performing Lab: Notes/Report: [facility] , Free T3 2.23 2.18-3.98 pg/mL Performing Lab: see note ML - [facility] LB CBC AUTO DIFF Reviewed date:03/14/2025 05:59:38 PM Interpretation: Performing Lab: Notes/Report: [facility] , White Blood Count 5.0 4.0-11.0 [...] 3/uL Performing Lab: see note ML - [facility] LB BNP Reviewed date:03/14/2025 05:59:38 PM Interpretation: Performing Lab: Notes/Report: [facility] , NT Pro B Type Natriuretic Pept 61.0 <=900.0 pg/mL Performing Lab: see note ML - [facility] LB XR chest 2V Reviewed date:12/28/2024 08:06:45 PM Interpretation: Performing Lab: Notes/Report: Source Facility: [place] [address] XRay Report Signed Patient: DARRIUS VAUGHAN MR#: [id number] : 1955 Acct:[id number] Age/Sex: 69 / M ADM Date: 12/28/24 Loc: LAB Attending Dr: MARIA ESTHER CORTES Ordering Physician: MARIA ESTHER CORTES Date of Service: 12/28/24 Procedure(s): XR chest 2V Accession Number(s): [id number] cc: Tirso Mccormick M.D.; MARIA ESTHER CORTES [place] [address] Patient Name: DARRIUS VAUGHAN MRN: [id number] date: 1955 Sex: M Assigned Patient Location: LAB Current Patient Location: LAB Accession/Order Number: [id number] Exam Date: 12/28/2024 10:18 Report Date: 12/28/2024 [...] Nikki Gleason M.D.12/28/2024 10:21 AM Dictation Location: [place] [address] Electronically authenticated by: [id number] Y Date: 12/28/2024 10:21 Dictated By: Nikki Gleason M.D. Signed By: 12/28/24 1024 DD/ 1021 TD/TT: School Manager: [place] [address] XRay Report Signed Patient: DARRIUS VAUGHAN MR#: [id number] : 1955 Acct:[id number] Age/Sex: 69 / M ADM Date: 12/28/24 Loc: LAB Attending Dr: MARIA ESTHER CORTES Ordering Physician: MARIA ESTHER CORTES Date of Service: 12/28/24 Procedure(s): XR [address] st 2V Accession Number(s): [id number] cc: Tirso Mccormick M.D. ; MARIA ESTHER CORTES [address] [address] Patient Name: DARRIUS VAUGHAN MRN: [id number] date: 1955 Sex: M Assigned Patient Location: LAB Current Patient Location: LAB Accession/Order Numb er: [id number] Exam Date: 12/28/2024 10:18 Report Date: 12/28/2024 [...] Nikki Gleason M.D.12/28/2024 10:21 AM Dictation Location: [place] [address] Electronically authenticated by: [id number] Y Date: 12/28/2024 10:21 Dictated By: Nikki Gleason M.D. Signed By: 12/28/24 1024 DD/ 1021 TD/TT: School Manager: TSH Reviewed date:12/28/2024 08:06:45 PM Interpretation: Performing Lab: Notes/Report: [facility] , Thyroid Stimulating Hormone 2.863 0.358-3.740 uIU/mL Performing Lab: see note ML - [facility] LB SGOT Reviewed date:12/28/2024 08:06:45 PM Interpretation: Performing Lab: Notes/Report: [facility] , Aspartate Amino Transferase 64 15-37 U/L Performing Lab: see note - [facility] LB PROF CHEM 8 (BAS METB) Reviewed date:12/28/2024 08:06:45 PM Interpretation: Performing Lab: Notes/Report: [facility] , Sodium 141 136-145 mmol/L Potassium [...] Performing Lab: see note ML - [facility] LB HEMOGLOBIN Reviewed date:12/28/2024 08:21:43 AM Interpretation: Performing Lab: Notes/Report: [facility] , Hemoglobin 16.0 14.0-18.0 g/dL Performing Lab: see note ML - [facility] LB UA (Urinalysis, Dipstix only - w/o micro) [...] ESTERASE (EMMANUEL) - NEG - NEG MG/DL Reason For Referral No Information Medications Medication [...] 90 Days Active Levothyroxine Sodium 50 MCG 25 mcg on [...] Problem Status W/U Status Risk Notes Problem 7710421 Essential (primary) hypertension (I10) Active confirmed Problem 02206367 Chronic obstructive pulmonary disease, unspecified (J44.9) Active confirmed Problem 1539632 Unspecified atri al flutter (I48.92) Active confirmed Problem 568047198 Diverticulosis o f large intestine without perforation or abscess without bleeding (K57.30) Active confirmed Problem Atrial flutter (0221758) Atrial flutter (I48.92) Active confirmed Problem Hyperlipidaemia (62590236) Hyperlipemia (E78.5) Active confirmed Problem 493244109 Dyslipidemia (E78.5) Active confirmed Problem Hypothyroid (76885173) Hypothyroid (E03.9) Active confirmed Problem Impacted cerumen (40099061) Cerumen impaction (H61.20) Active confirmed Problem Acute bronchitis (27726796) Acute bronchitis (J20.9) Active confirmed Problem Fatty liver (725640537) Fatty liver (K76.0) Active confirmed Problem Hyperthyroidism (67412521) Hyperthyroidism (E05.90) Active confirmed Problem Acute sinusitis (28346371) Acute sinus infection (J01.90) Active confirmed Problem Acute bronchiolitis (3955399) Acute bronchiolitis (J21.9) Active confirmed Problem 22608701 Type 2 diabetes mellitus with hyperglycemia, without [...] N/A Encounters Encounter Location Date Provider Diagnosis [place] [id number] [place] [address] 11/12/2024 Jim Hoy Acute bronchitis, unspecified organism J20.[address] [address] 01/11/2025 Jim Hoy Acute non-recurrent sinusitis, unspecified location J01.90 and Nasal congestion R09.[address] [address] 03/04/2025 Jim Hoy Type 2 diabetes sherron itus with hyperglycemia, without long-term current use of insulin E11.65 ; Essential (primary) hypertension I10 and Hypothyroid E03.[address] [address] 04/01/2025 Jim Hoy Atrial flutter I48.9 2 and Biceps tendon rupture, left, initial encounter S46.112[address] [place] [address] [place] [address] 03/23/2025 Jim Hoy Flank pain R10.[address] [address] 07/20/2024 Jim Hoy [place] [address] [place] [address] 07/28/2024 Jim Mccormick Type 2 diabetes sherron itus with hyperglycemia, without long-term current use of insulin E11.65 [facility] [address] [place] [place] [address] 11/16/2024 Jim Mccormick Acute bronchitis, unspecified organism J20.9 [facility] [address] [place] [place] [address] 03/14/2025 Jim Mccormick Abnormal thyroid blo od test R94.6 [facility] [address] [place] [address] 03/16/2025 Jim Mccormick [facility] [address] [place] [place] [address] 03/17/2025 Jim Mccormick [facility] [address] [place] [address] 03/23/2025 Jim Mccormick [facility] [address] [place] [facility] [place] [address] 03/24/2025 Jim Mccormick Flank pain R10.9 [facility] [address] [place] [place] [address] 03/25/2025 Jim Mccormick [facility] [address] [place] [place] [address] 04/15/2025 Jim Mccormick Hyperthyroidism E05. 90 Assessments Encounter Date Diagnosis (ICD Code) Assessment Notes Treatment Notes Treatment Clinical Notes Section Notes 11/12/2024 Acute bronchitis, unspecified organism (ICD-10 - J20.9) Rest and drink more liquids, especially water. You may use a humidifier or vaporizer to help keep the drainage moist. Mnie-hks-iclwmxn Nasal Saline may help the stuffy and runny nose. Use Ibuprofen and or Tylenol as needed for fever, chills, body aches or pain. Children 5 years old should not be given gmkx-uuu-cpaodab cough and cold medications such as guaifenesin and dextromethorphan. If you're over age 5, you may try hfoa-cfv-swazfce cold medications such as guaifenesin and dextromethorphan, [...] vaporizer to help keep the drainage moist. Adsy-bjn-ssoqdxv Nasal Saline may help the stuffy and runny nose. Use Ibuprofen and or Tylenol as needed for fever, chills, body aches or pain. Children 5 years old should not be given rrtf-qzf-ufcozij cough and cold medications such as guaifenesin and dextromethorphan. If you're over age 5, you may try qfox-nqe-rlxgpio cold medications such as guaifenesin and dextromethorphan, [...] R94.6) 03/24/2025 Flank pain (ICD-10 - R10.9) 04/15/2025 Hyperthyroidism (ICD-10 - E05.90) 03/04/2025 Hypothyroid (ICD-10 - E03.9) 01/11/2025 Nasal [...] (T4/TSH/FREE T3) 5 THYROID PANEL (T4/TSH/FREE T3) 5 THYROID PANEL [...] MEDICARE [place] [address] [address] [id number] Darrius Vaughan Self - patient is the insured 9 [employer] [address] [address] [place] [address] [id number] Darrius Vaughan Self - patient is the [...] Hearing loss H91.90 Surgical History Surgery Date(Month/Year) Gallbladder Appendix eye injections for macular degeneration Hernia x3 Colonoscopy 04/12/21
--- OUTSIDE RECORDS SUMMARY | 2025-05-20 10:05 | XMS_ITS | Clinical Summary ---
Author Organization [facility] Address [address] [place] [address] Care Team Providers Care Training Program Assistant Name Role Phone Ej Frausto MD Primary Care Provider [phone] Allergies Active Allergy Reactions Criticality Noted Date [...] Encounters Date Type Department Care Team Description 04/15/2025 11:10 AM EDT Procedure Visit [facility] [address] [place] [address] Joe García DPM Diabetes mellitus due to underlying condition with diabetic polyneuropathy, unspecified whether intermediate insulin use (HCC) (Primary Dx); Pain due to onychomycosis of toenails of both feet 04/15/2025 Bamboo flowsheet [facility] [address] [place] [address] Joe García DPM 04/15/2025 Travel from Last 3 Months Family History [...] - - Temperature - - Respiratory Rate 18 04/15/2025 11:09 AM EDT Oxygen Saturation - - Inhaled Oxygen Concentration - - Weight 104 kg (230 lb) 04/15/2025 11:09 AM EDT Height 182.9 cm (6') 04/15/2025 11:09 AM EDT Body Mass Index 31.19 04/15/2025 11:09 AM EDT Plan of Treatment Upcoming Encounters Date Type Department Care Team (Late st Contact Info) Description 06/24/2025 10:10 AM EDT Procedure Visit [facility] [address] [facility] [address] [place] [address] Joe García DPM [address] [facility] [address] [place] [address] Insurance MEDICARE [employer] Care Teams Training Program Assistant Relationship Specialty Start Date End Date Ej Frausto MD PCP - General Family Medicine 11/26/24
--- OUTSIDE RECORDS SUMMARY | 2025-05-20 10:05 | XMS_ITS | Encounter Summary ---
Author Organization [facility] Address [address] [place] [address] Phone Care Team Providers Care Fixing Machine Operator Name Role Phone Ej Frausto MD Primary Care Provider [phone] Encounter Details Date Type Department Care Team (Late st Contact Info) Description 01/09/2024 Scanned Document [facility] [address] [place] [address] Scanning, Generic Provider Social History [...] Info) Description 06/17/2025 2:30 PM EDT Appointment [address] [place] [address] 08/25/2025 11:10 AM EDT Office Visit [address] [place] [address] Marcus Recinos MD [address] [place] [address] [address] [place], [place] [phone] documented as of this encounter Procedures Procedure [...] documented as of this encounter Care Teams Fixing Machine Operator Relationship Specialty Start Date End Date Ej Frausto MD [address] [place] [address] PCP - General 11/04/99 documented as of this encounter
--- OUTSIDE RECORDS SUMMARY | 2025-05-20 10:06 | XMS_ITS | Encounter Summary ---
Author Organization [facility] Address [address] [place] [address] Phone Care Team Providers Care Taper/Finisher Name Role Phone Ej Frausto MD Primary Care Provider [phone] Encounter Details Date Type Department Care Team (Late st Contact Info) Description 01/21/2022 Orders Only [facility] [address] [place] [address] Conversion, Onbase Social History Tobacco Use Types [...] Info) Description 06/17/2025 2:30 PM EDT Appointment [address] [place] [address] 08/25/2025 11:10 AM EDT Office Visit [address] [place] [address] Marcus Recinos MD [address] [facility] [address], [address] [place], [place] [address] Scheduled Orders Name Type Priority Associated Diagnoses Orde r Schedule OUTSIDE LAB SCAN Lab Ordered: 01/21/2022 documented as of this encounter Visit Diagnoses Not on filedocumented in this encounter Care Teams Taper/Finisher Relationship Specialty Start Date End Date Ej Frausto MD [address] [place] [address] PCP - General 11/04/99 documented as of this encounter
--- OUTSIDE RECORDS SUMMARY | 2025-05-20 10:07 | XMS_ITS | Encounter Summary ---
Author Organization [facility] Address [address] [place] [address] Phone Care Team Providers Care Saw Cleaner Name Role Phone Ej Frausto MD Primary Care Provider [phone] Encounter Details Date Type Department Care Team (Late st Contact Info) Description 01/22/2022 Orders Only [facility] [address] [place] [address] Conversion, Onbase Social History Tobacco Use Types [...] Info) Description 06/17/2025 2:30 PM EDT Appointment [address] [place] [address] 08/25/2025 11:10 AM EDT Office Visit [address] [place] [address] Marcus Recinos MD [address] [facility] [address], [address] [place], [place] [address] Scheduled Orders Name Type Priority Associated Diagnoses Orde r Schedule OUTSIDE LAB SCAN Lab Ordered: 01/22/2022 documented as of this encounter Visit Diagnoses Not on filedocumented in this encounter Care Teams Saw Cleaner Relationship Specialty Start Date End Date Ej Frausto MD [address] [place] [address] PCP - General 11/04/99 documented as of this encounter
--- OUTSIDE RECORDS SUMMARY | 2025-05-20 10:07 | XMS_ITS | Encounter Summary ---
Author Organization [facility] Address [address] [place] [address] Phone Care Team Providers Care Gis Software Developer Name Role Phone Ej Frausto MD Primary Care Provider [phone] Encounter Details Date Type Department Care Team (Late st Contact Info) Description 12/28/2024 Scanned Document [facility] [address] [place] [address] Scanning, Generic Provider Social History [...] Info) Description 06/17/2025 2:30 PM EDT Appointment [address] [place] [address] 08/25/2025 11:10 AM EDT Office Visit [address] [place] [address] Marcus Recinos MD [address] [place] [address] [address], [address] [place] [address] documented as of this encounter Procedures Procedure [...] documented as of this encounter Care Teams Gis Software Developer Relationship Specialty Start Date End Date Ej Frausto MD [address] [place] [address] PCP - General 11/04/99 documented as of this encounter
--- OUTSIDE RECORDS SUMMARY | 2025-05-20 10:07 | XMS_ITS | Encounter Summary ---
Author Organization [facility] Address [address] [place] [address] Phone Care Team Providers Care Customer Contact Sales Associate Name Role Phone Ej Frausto MD Primary Care Provider [phone] Encounter Details Date Type Department Care Team (Late st Contact Info) Description 07/16/2023 Orders Only [facility] [address] [place] [address] Conversion, Onbase Social History Tobacco Use Types [...] Info) Description 06/17/2025 2:30 PM EDT Appointment [address] [place] [phone] 08/25/2025 11:10 AM EDT Office Visit [address] [place] [address] Marcus Recinos MD 703 [facility] [address], [address] [place], [place] [phone] Scheduled Orders Name Type Priority Associated Diagnoses Orde r Schedule OUTSIDE LAB SCAN Lab Ordered: 07/16/2023 documented as of this encounter Visit Diagnoses Not on filedocumented in this encounter Care Teams Customer Contact Sales Associate Relationship Specialty Start Date End Date Ej Frausto MD [address] [place] [address] PCP - General 11/04/99 documented as of this encounter
--- OUTSIDE RECORDS SUMMARY | 2025-05-20 10:07 | XMS_ITS | Encounter Summary ---
Author Organization [facility] Address [address] [place] [address] Phone Care Team Providers Care Miller Helper Distillery Name Role Phone Ej Frausto MD Primary Care Provider [phone] Encounter Details Date Type Department Care Team (Late st Contact Info) Description 12/10/2022 Orders Only [facility] [address] [place] [address] Conversion, Onbase Social History Tobacco Use Types [...] Info) Description 06/17/2025 2:30 PM EDT Appointment [address] [place] [phone] 08/25/2025 11:10 AM EDT Office Visit [address] [place] [address] Marcus Recinos MD 703 [facility] 2, [address] [place], [place] [phone] Scheduled Orders Name Type Priority Associated Diagnoses Orde r Schedule OUTSIDE LAB SCAN Lab Ordered: 12/10/2022 documented as of this encounter Visit Diagnoses Not on filedocumented in this encounter Care Teams Miller Helper Distillery Relationship Specialty Start Date End Date Ej Frausto MD [address] [place] [address] PCP - General 11/04/99 documented as of this encounter
--- OUTSIDE RECORDS SUMMARY | 2025-05-20 10:07 | XMS_ITS | Encounter Summary ---
Author Organization [facility] Address [address] [place] [address] Phone Care Team Providers Care Sales Communications Manager Name Role Phone Ej Frausto MD Primary Care Provider [phone] Encounter Details Date Type Department Care Team (Late st Contact Info) Description 01/01/2023 Orders Only [facility] [address] [place] [address] Conversion, Onbase Social History Tobacco Use Types [...] Description 06/17/2025 2:30 PM EDT Appointment [address] [place] [address] 08/25/2025 11:10 AM EDT Office Visit [address] [place] [address] Marcus Recinos MD 703 [facility] 2, [address] [place], [place] [phone] Scheduled Orders Name Type Priority Associated Diagnoses Orde r Schedule OUTSIDE LAB SCAN Lab Ordered: 01/01/2023 documented as of this encounter Visit Diagnoses Not on filedocumented in this encounter Care Teams Sales Communications Manager Relationship Specialty Start Date End Date Ej Frausto MD [address] [place] [address] PCP - General 11/04/99 documented as of this encounter
--- OUTSIDE RECORDS SUMMARY | 2025-05-20 10:07 | XMS_ITS | Encounter Summary ---
Author Organization [facility] Address [address] [place] [address] Phone Care Team Providers Care Psych Tech Name Role Phone Ej Frausto MD Primary Care Provider [phone] Encounter Details Date Type Department Care Team (Late st Contact Info) Description 05/28/2024 Scanned Document [facility] [address] [place] [address] Scanning, Generic Provider Social History Tobacco Use [...] Info) Description 06/17/2025 2:30 PM EDT Appointment [address] [place] [address] 08/25/2025 11:10 AM EDT Office Visit [address] [place] [address] Marcus Recinos MD [address] [place] [address] 2, [address] [place], [place] [address] documented as of this encounter Visit Diagnoses Not on filedocumented in this encounter Additional Health Concerns Assessment Noted Time A fall risk assessment has been complete d for the patient 12/04/2023 9:04 AM EST documented as of this encounter Care Teams Psych Tech Relationship Specialty Start Date End Date Ej Frausto MD [address] [place] [address] PCP - General 11/04/99 documented as of this encounter
--- OUTSIDE RECORDS SUMMARY | 2025-05-20 10:07 | XMS_ITS | Encounter Summary ---
Author Organization [facility] Address [address] [place] [address] Phone Care Team Providers Care Element Burner Name Role Phone Ej Frausto MD Primary Care Provider [phone] Encounter Details Date Type Department Care Team (Late st Contact Info) Description 01/23/2022 Orders Only [facility] [address] [place] [address] Conversion, Onbase Social History Tobacco Use Types [...] Info) Description 06/17/2025 2:30 PM EDT Appointment [address] [place] [address] 08/25/2025 11:10 AM EDT Office Visit [address] [place] [address] Marcus Recinos MD 703 [facility] 2, [address] [place], [place] [phone] Scheduled Orders Name Type Priority Associated Diagnoses Orde r Schedule OUTSIDE LAB SCAN Lab Ordered: 01/23/2022 documented as of this encounter Visit Diagnoses Not on filedocumented in this encounter Care Teams Element Burner Relationship Specialty Start Date End Date Ej Frausto MD [address] [place] [address] PCP - General 11/04/99 documented as of this encounter
--- OUTSIDE RECORDS SUMMARY | 2025-05-20 10:07 | XMS_ITS | Encounter Summary ---
Author Organization [facility] Address [address] [place] [address] Phone Care Team Providers Care Stone Banker Name Role Phone Ej Frausto MD Primary Care Provider [phone] Encounter Details Date Type Department Care Team (Late st Contact Info) Description 10/22/2022 Orders Only [facility] [address] [place] [address] Conversion, Onbase Social History Tobacco Use Types [...] Description 06/17/2025 2:30 PM EDT Appointment [address] [place] [address] 08/25/2025 11:10 AM EDT Office Visit [address] [place] [address] Marcus Recinos MD 703 [facility] 2, [address] [place], [place] [address] Scheduled Orders Name Type Priority Associated Diagnoses Orde r Schedule OUTSIDE LAB SCAN Lab Ordered: 10/22/2022 documented as of this encounter Visit Diagnoses Not on filedocumented in this encounter Care Teams Stone Banker Relationship Specialty Start Date End Date Ej Frausto MD [address] [place] [address] PCP - General 11/04/99 documented as of this encounter
--- OUTSIDE RECORDS SUMMARY | 2025-05-20 10:07 | XMS_ITS | Encounter Summary ---
Author Organization [facility] Address [address] [place] [address] Phone Care Team Providers Care Air Conditioning Installer Supervisor Name Role Phone Ej Frausto MD Primary Care Provider [phone] Encounter Details Date Type Department Care Team (Late st Contact Info) Description 03/08/2023 Orders Only [facility] [address] [place] [address] Conversion, Onbase Social History Tobacco Use Types [...] Info) Description 06/17/2025 2:30 PM EDT Appointment [address] [place] [address] 08/25/2025 11:10 AM EDT Office Visit [address] [place] [address] Marcus Recinos MD 703 [facility] 2, [address] [place], [place] [phone] Scheduled Orders Name Type Priority Associated Diagnoses Orde r Schedule OUTSIDE LAB SCAN Lab Ordered: 03/08/2023 documented as of this encounter Visit Diagnoses Not on filedocumented in this encounter Care Teams Air Conditioning Installer Supervisor Relationship Specialty Start Date End Date Ej Frausto MD [address] [place] [address] PCP - General 11/04/99 documented as of this encounter
--- OUTSIDE RECORDS SUMMARY | 2025-05-20 10:07 | XMS_ITS | Encounter Summary ---
Author Organization [facility] Address [address] [place] [address] Phone Care Team Providers Care Quartz Cutter Name Role Phone Ej Frausto MD Primary Care Provider [phone] Encounter Details Date Type Department Care Team (Late st Contact Info) Description 07/28/2024 Scanned Document [facility] [place] [facility] [address] [place] [address] Scanning, Generic Provider Social History [...] Info) Description 06/17/2025 2:30 PM EDT Appointment [address] [place] [address] 08/25/2025 11:10 AM EDT Office Visit [address] [place] [address] Marcus Recinos MD [address] [place] [address] 2, [address] [place] [address] documented as of this encounter Procedures Procedure [...] documented as of this encounter Care Teams Quartz Cutter Relationship Specialty Start Date End Date Ej Frausto MD [address] [place] [phone] PCP - General 11/04/99 documented as of this encounter
--- OUTSIDE RECORDS SUMMARY | 2025-05-20 10:07 | XMS_ITS | Encounter Summary ---
Author Organization [facility] Address [address] [place] [address] Phone Care Team Providers Care Billet Grinder Name Role Phone Ej Frausto MD Primary Care Provider [phone] Encounter Details Date Type Department Care Team (Late st Contact Info) Description 05/27/2024 Scanned Document [facility] [address] [place] [address] Scanning, Generic Provider Social History Tobacco Use [...] Info) Description 06/17/2025 2:30 PM EDT Appointment [address] [place] [address] 08/25/2025 11:10 AM EDT Office Visit [address] [place] [address] Marcus Recinos MD [address] [place] [address] 2, [address] [place], [place] [address] documented as of this encounter Procedures Procedure [...] documented as of this encounter Care Teams Billet Grinder Relationship Specialty Start Date End Date Ej Frausto MD [address] [place] [address] PCP - General 11/04/99 documented as of this encounter
--- OUTSIDE RECORDS SUMMARY | 2025-05-20 10:07 | XMS_ITS | Encounter Summary ---
Author Organization [facility] Address [address] [place] [address] Phone Care Team Providers Care Vitreo Retinal Surgeon Name Role Phone Ej Frausto MD Primary Care Provider Encounter Details Date Type Department Care Team (Late st Contact Info) Description 01/11/2023 Orders Only [facility] [address] [place] [address] Conversion, Onbase Social History Tobacco Use Types [...] Description 06/17/2025 2:30 PM EDT Appointment [address] [place] [phone] 08/25/2025 11:10 AM EDT Office Visit [address] [place] [address] Marcus Recinos MD 703 [facility] 2, [address] [place], [place] [address] Scheduled Orders Name Type Priority Associated Diagnoses Orde r Schedule OUTSIDE LAB SCAN Lab Ordered: 01/11/2023 documented as of this encounter Visit Diagnoses Not on filedocumented in this encounter Care Teams Vitreo Retinal Surgeon Relationship Specialty Start Date End Date Ej Frausto MD [address] [place] [address] PCP - General 11/04/99 documented as of this encounter
--- OUTSIDE RECORDS SUMMARY | 2025-05-20 10:07 | XMS_ITS | Clinical Summary ---
Author Organization [facility] Address [address] [place] [address] Care Team Providers Care Practice Assistant Name Role Phone Unavailable Primary Care Provider [...] at Not on file Legal Sex Male 12:26 AM EDT Gender Identity Not on file Sexual Orientation Not on file Plan of Treatment Health Maintenance Due Date Last Done Comments CT Colonography 1954 Colonoscopy 1954 Colorectal Cancer Screening 1954 FIT-DNA 1954 FIT 1954 FOBT 1954 Medicare Annual Wellness (AWV) 1954 Sigmoidoscopy 1954 Depression Screening 1966 Adult Tetanus 1976 Pneumococcal Vaccine: 50+ Ye ars (1 of 1 - PCV) 2004 Zoster Vaccines (1 of 2) 2004 Fall Risk Screening 2019 COVID-19 Vaccine ( - 2023-2 5 season) 2024 Influenza Vaccine (#1) 2025 HIB Vaccines Aged Out No longer [...] on patient's age to complete this topic Insurance MEDICARE Member Subscriber Plan / Payer (Ef fective 2019-Present) Name:Darrius Magaña Member ID:[id number] Relation to Subscriber:Self Name:Darrius Magaña Subscriber ID:[id number] Payer ID:[id number] Group ID:Not on file Type:Medicare Address: [facility] [id number]
--- OUTSIDE RECORDS SUMMARY | 2025-05-20 10:07 | XMS_ITS | Encounter Summary ---
Author Organization [facility] Address [address] [place] [address] Phone Care Team Providers Care Advanced Manufacturing Vice President Name Role Phone Ej Frausto MD Primary Care Provider Encounter Details Date Type Department Care Team (Late st Contact Info) Description 11/26/2022 Orders Only [facility] [address] [place] [address] Conversion, Onbase Social History Tobacco Use Types [...] Info) Description 06/17/2025 2:30 PM EDT Appointment [address] [place] [phone] 08/25/2025 11:10 AM EDT Office Visit [address] [place] [address] Marcus Recinos MD 703 [facility] 2, [address] [place], [place] [phone] Scheduled Orders Name Type Priority Associated Diagnoses Orde r Schedule OUTSIDE LAB SCAN Lab Ordered: 11/26/2022 documented as of this encounter Visit Diagnoses Not on filedocumented in this encounter Care Teams Advanced Manufacturing Vice President Relationship Specialty Start Date End Date Ej Frausto MD [address] [place] [address] PCP - General 11/04/99 documented as of this encounter
--- OUTSIDE RECORDS SUMMARY | 2025-05-20 10:25 | XMS_ITS | CCD ---
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 Name Role Phone MD Tirso Frausto Primary Care Provider [phone] MD Pola Anders Admit Provider MD Jin Berkowitz Attending Provider MD Ama Morrison Attending Provider [phone] Tirso Frausto Unavailable Unavailable Unavailable MD Marcus Recinos Attending Provider [phone] MD Marcus Recinos Referring Provider Tirso Frausto Primary Care Physician Unavailable Unavailable MD Tirso Frausto Primary Care Provider [phone] Jina Rios Unavailable Carlos A Salazar [...] DR NONE LISTED Primary Care Unavaila ble BARTONDEE GARZA Consulting Unavailable RECINOS, DR MARCUS Rivera Consulting [...] DR CHAHAL Attending Unavailable HOY ., DR CAHHAL Admitting Unavailable HOY ., DR CHAHAL Primary Care Unavailable HOY ., DR CHAHAL Attending Unavailable HOY ., DR CHAHAL Consulting Unavailable HOY ., DR CHAHAL Admmarycruz Unavailable Tirso Frausto MD Primary Care Provider [phone] Tirso Frausto MD Primary Care Provider Unavailable Primary Care Provider UnavailTirso Boland MD Primary Care Provider [phone] MARCUS RECINOS Referring Unavailable TIRSO FRAUSTO Primary Care Unavailable Tirso Frausto MD Primary Care Provider [phone] Trinity Velez DO Emergency Provider [phone] MARCUS RECINOS Attending Unavailable MARCUS RECINOS Referring Unavailable TIRSO FRAUSTO Primary Care Unavailable MARCUS RECINOS Attending Unavailable MARCUS RECINOS Referring Unavailable TIRSO FRAUSTO Primary Care Unavailable Tirso Frausto MD Primary Care Provider [phone] JOE GARCÍA Attending Unavailable JOE GARCÍA Attending Unavailable JOE GARCÍA Attending Unavailable Trinity Velez Admitting Unavailable Trinity Velez Attending Unavailable Tirso Frausto Primary Care Unavailable Allergies Allergy Classification Reported Allergen(s) Allergy Type Date of Onset Reaction(s) Facility (18 sources) Ciprofloxacin; Translations: [Ciprofloxacin] Drug Allergy 03-27-[address] [facility] (14 sources) Ciprofloxacin; Translations: [Cipro XR] Drug Allergy [facility] 250 DO Work Phone: (1 source) Ciprofloxacin Drug Allergy 04-19-2015 [facility] Repository (5 sources) Ciprofloxacin; Translations: [CIPROFLOXACIN (MIXTURE)] Drug Allergy 10-14-2023 [facility] Work Phone: Medications Current Medications Medication [...] End: 12-04-2023 take 1 tablet by mouth in the morning amiodarone (Pacerone) 200 MG tablet Take 200 mg by mouth in the morning. 09/29/2024 Active Start: 02-13-2022 End: 03-27-2022 take 1 tablet by mouth twice daily Amiodarone 200 mg Tablet Discontinued 200 MG PO Twice daily March 27, 2022 12:00am March 27, 2022 9:17am apixaban 5 mg oral tablet (17 sources) Factor Xa Inhibitor Start: 01-20-2022 End: 01-06-2026 take 1 tablet by mouth twice daily Apixaban (Eliquis) 5 mg tablet Active 5 MG PO Twice daily January 20, 2022 12:00am ascorbic acid 226 mg / beta carotene 60685 unt / cuprous oxide 0.8 mg / dl-alpha tocopheryl acetate 200 unt / zinc oxide 34.8 mg oral capsule (4 sources) Vitamin C Start: 04-16-2022 take 1 capsule by mouth once daily PreserVision AREDS oral capsule 1 cap, Oral, Daily, Prophylaxis Start Date: 04/16/22 Status: Ordered take 1 tablet by kyle th every twelve hours vitamins A,C,H-xvfq-xggkdz (PreserVision AREDS) 2,148 mcg-113 mg-45 mg-17.4mg tablet [...] aspirin 81 mg delayed release oral tablet (17 sources) Platelet Aggregation Inhibitor, Nonsteroidal Anti-inflammatory Drug Start: 06-07-20 End: 06-07-20 take 1 tablet by mouth every week Aspirin 81 mg tablet,delayed release (DR/EC) Active 81 MG PO every week March 29, 2025 12:00am FreeTextSi tablet Orally Once a week; Note: Source Status: Taking; Provider: Desire Espinoza ( ) Start: 11-08-2022 take 1 tablet by kyle th every week Aspirin 81 MG Oral Tablet Delayed Release TAKE 1 TABLET Weekly Quantity: 12 Refills: 3 Ordered: 08-Nov-2022 Marcus Recinos MD Start : 08-Nov-2022 Active ferrous sulfate 325 mg oral tablet (9 sources) Start: 10-02-2024 take 1 tablet by [...] Start Date: 04/16/22 Status: Ordered Start: 01-23-2022 End: 03-29-2025 Furosemide (Lasix) 40 mg tab let Discontinued 40 MG PO Daily as needed for weight gain January 23, 2022 9:25am March 29, 2025 9:02pm Take for swelling/edema take for increase in weight by 3 pounds in 24 hours or 5 pounds in 48 hours levothyroxine sodium 0.05 mg oral tablet (8 sources) l-Thyroxine take 1 tablet by mouth before mealtime levothyroxine (Synthroid, Levoxyl) 50 MCG tablet Take 50 mcg by mouth in the morning. Take before meals. Active naproxen 500 mg oral tablet (1 source) Nonsteroidal Anti-inflammatory Drug Start: 03-29-20 25 take 1 tablet by mouth twice daily Naproxen 500 mg tablet Active 500 MG PO Twice daily March 29, 2025 12:00am pantoprazole 40 mg delayed release oral tablet (20 sources) Proton Pump Inhibitor Start: 01-05-20 take 1 tablet by mouth once daily Pantoprazole 40 mg tablet,delayed release (DR/EC) Active 40 MG PO Daily January 20, 2022 12:00am pravastatin sodium 40 mg oral tablet (10 sources) HMG-CoA Reductase Inhibitor Start: 09-11-20 24 End: 09-11-20 take 1 tablet by mouth [...] : 24-Apr-2022 Active stop eliquis/ new start spironolactone 25 mg oral tablet (20 sources) Aldosterone Antagonist Start: 04-16-2022 take 1 tablet by mouth twice daily spironolactone 25 mg Tab 25 mg = 1 tab(s), Oral, BID, diuretic/water pill Start Date: 04/16/22 Status: Ordered Start: 01-23-2022 Spironolactone 25 mg tablet Active 12.5 MG PO Every morning January 23, 2022 12:00am Start: 01-23-2022 take 12.5 mg by mout h once daily in the morning Spironolactone Active 12.5 MG PO Every morning January 23, 2022 9:25am take 0.5 tablet by m outh once daily spironolactone (Aldactone) 25 MG tablet TAKE 1/2 TABLET BY MOUTH EVERY DAY 90 DAYS Active tamsulosin hydrochloride 0.4 mg oral capsule (20 sources) alpha-Adrenergic Clare Start: 01-04-2021 End: 12-04-2023 take 1 capsule by mouth once daily Tamsulosin 0.4 mg capsule Active 0.4 MG PO Daily January 20, 2022 12:00am Vit C,H-Lx-Vjcsr-Lutein -Zeaxan (Preservision Areds-2) 250-90-40-1 mg Capsule (7 sources) Start: 01-20-2022 Vit C,I-El-Fgwix-Diandra tein-Zeaxan (Preservision Areds-2) 250-90-40-1 mg Capsule Active 1 TAB PO Twice daily January 20, 2022 2:13am Start: 01-20-2022 Vit C,E-Zn-Title Vehicle Service Attendant li-Fzwsnk-Fhqtuu (Preservision Areds-2) 250-90-40-1 mg Capsule Active 1 TAB PO Twice daily January 20, 2022 12:00am Completed/Discontinued Medications Medication Drug Class(es) Dates Sig (Normalized) Sig (Original) [id number] 200 actuat albuterol 0.09 mg/actuat metered dose [...] hrs Active digoxin 0.125 mg oral tablet (7 sources) Cardiac Glycoside Start: 01-23-2022 End: 03-27-2022 take 1 tablet by mouth once daily Digoxin 125 mcg (0.125 mg) tablet Discontinued 125 MCG PO Daily January 23, 2022 12:00am March 27, 2022 8:25am enalapril maleate 5 mg oral tablet (7 sources) Angiotensin Converting Enzyme Inhibitor Start: 01-23-2022 End: 03-27-2022 take 1 tablet by mouth once daily in the evening Enalapril Maleate (Vasotec) 5 mg tablet Discontinued 5 MG PO Every evening January 23, 2022 12:00am March 27, 2022 8:25am 24 hr isosorbide mononitrate 60 mg extended release oral tablet (7 sources) Nitrate Vasodilator Start: 01-20-2022 End: 01-23-2022 take 1 tablet by mouth once daily, then take 2 tablets by mouth every twenty-four hours Isosorbide Mononitrate 60 mg tablet extended release 24 hr Discontinued 30 MG PO Daily January 20, 2022 12:00am January 23, 2022 9:41am 24 hr metoprolol [...] Start: 02-13-2022 take 1 tablet by kyle once daily Metoprolol Succinate ER 100 MG Oral Tablet Extended Release 24 Hour TAKE 1 TABLET ONCE DAILY. Quantity: 90 Refills: 3 Ordered: 13-Feb-2022 Marcus Recinos MD Start : 13-Feb-2022 Active increase dose Start: 01-23-2022 End: 03-29-2025 take 1 tablet by mouth once daily Metoprolol Succinate (Toprol Xl) 50 mg tablet extended release 24 hr Discontinued 50 MG PO Daily 30 March 27, 2022 12:00am March 29, 2025 9:02pm Start: 01-20-2022 End: 01-23-2022 take 1 tablet by mouth twice daily Metoprolol Tartrate 50 mg tablet Discontinued 50 MG PO Twice daily January 20, 2022 12:00am January 23, 2022 9:41am Start: 01-18-2022 take 1 tablet by kyle th once daily Metoprolol Tartrate 50 MG Oral Tablet TAKE 1 TABLET DAILY. Quantity: 0 Refills: 0 Ordered: 18-Jan-2022 DO Start : 18-Jan-2022 Active PreserVision AREDS TABS (20 sources) PreserVision ARE DS TABS TAKE 1 TABLET EVERY 12 HOURS. Quantity: 0 Refills: 0 Ordered: 13-Feb-2022 DO Active simvastatin 20 mg oral tablet (20 sources) HMG-CoA Reductase Inhibitor Start: End: 5 take 1 tablet by mouth once daily Simvastatin 20 mg tablet Discontinued 20 MG PO Daily January 20, 2022 12:00am March 29, 2025 9:02pm vitamin b6 100 mg oral tablet (20 sources) Start: 2 End: 2 take 1 tablet by mouth once daily Pyridoxine (Vitamin B6) (Vitamin B-6) 100 mg Tablet Discontinued 100 MG PO Daily January 20, 2022 12:00am March 27, 2022 8:27am warfarin sodium 4 [...] Atrial flutter; Translations: [Unspecified atrial flutter] Onset: 10-31-2022 01-20-2022 Chronic Comment on above: Problem List clean-u p per request of Phys. EHR Cmte Cataract (2 sources) Cataract; Translations: [Unspecified cataract] Onset: 04-16-2022 Chronic Chronic obstructive pulmonary disease and bronchiectasis (13 sources) Chronic obstructive lung disease; Translations: [Chronic airway obstruction, not elsewhere classified] Onset: 10-14-2023 12-04-2023 Chronic Coronary atherosclerosis and other heart disease (1 source) Coronary arteriosclerosis; Translations: [Atherosclerotic heart disease of [place] coronary artery without angina pectoris] 12-04-2023 Chronic Diabetes mellitus with complications (5 sources) Type 2 diabetes mellitus with hyperglycemia; 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] Onset: 03-14-2023 11-26-2024 Chronic Diabetes mellitus without complication (12 sources) Diabetes mellitus; Translations: [Type 2 diabetes mellitus without complications] 01-20-2022 Chronic Comment on above: diet controlled Disorders of lipid metabolism (20 sources) Hyperlipidemia; Translations: [Hyperlipidemia, unspecified] Onset: 11-15-2022 01-20-2022 Chronic Diverticulosis and diverticulitis (1 source) Diverticulitis of sigmoid colon 04-19-2021 Chronic E Codes: Fall (1 source) Fall; Translations: [Unspecified fall, initial encounter] 03-29-2025 Episodic Essential hypertension (20 sources) Benign essential hypertension; Translations: [Benign essential hypertension] Onset: 11-14-2022 Chronic Fluid and electrolyte disorders (1 source) Hyponatremia; Translations: [Hypo-osmolality and hyponatremia] 03-29-2025 Episodic Heart valve disorders (1 source) Heart murmur 01-04-2021 Episodic Inflammatory conditions of male genital organs (1 source) Prostatitis 01-04-2021 Episodic Mycoses (4 sources) Pain in toe; Translations: [Tinea unguium] 11-26-2024 Episodic Other aftercare (20 sources) Drug therapy finding; Translations: [Long-term (current) use of other medications] Episodic Other aftercare (4 sources) Encounter for therapeutic drug level monitoring Episodic Other and ill-defined heart disease (1 [...] exertion; Translations: [Other respiratory abnormalities] Episodic Other non-traumatic joint disorders (1 source) Pain in left shoulder; Translations: [Pain in left shoulder] Onset: 03-29-2025 Episodic Other nutritional; endocrine; and metabolic disorders (20 sources) Obesity; Translations: [Obesity, unspecified] Chronic Other nutritional; endocrine; and metabolic disorders (2 sources) Obese class I; Translations: [Obesity, unspecified] 12-04-2023 Chronic Other nutritional; endocrine; and metabolic disorders (3 sources) Body mass index 30+ - obesity; Translations: [Body mass index (BMI) 30.0-30.9, adult] Onset: 06-03-2024 01-06-2025 Chronic Other nutritional; endocrine; and metabolic disorders (2 sources) Body mass index (BMI) 30.0-30.9, adult; Translations: [Body mass index (BMI) 30.0-30.9, adult] Onset: 01-06-2025 Chronic Bree-; endo-; and myocarditis; cardiomyopathy (except that caused by tuberculosis or sexually transmitted disease) (11 sources) Cardiomyopathy; Translations: [Cardiomyopathy, unspecified] 01-20-2022 Chronic Comment on above: Problem List clean-u p per request of Phys. EHR Cmte Residual codes; unclassified (7 sources) Current drinker; Translations: [Other problems related to lifestyle] 01-20-2022 Episodic Comment on above: Problem List clean-u p per request of Phys. EHR Cmte Residual codes; unclassified (4 sources) Other problems related to lifestyle; Translations: [Other specified conditions influencing health status] Episodic Substance-related disorders (1 source) Smoker 03-02-2021 Chronic Comment on above: Added secondary to d ocumentation in Social History. Superficial injury; contusion (2 sources) Contusion of right foot; Translations: [Contusion of right foot, initial encounter] 11-26-2024 Episodic Thyroid disorders (1 source) Hypothyroidism; Translations: [Hypothyroidism, unspecified] 01-06-2025 Chronic Unclassified (1 source) CONTACT W/AND (SUSP) EXPOS COVID-19; Translations: [CONTACT W/AND (SUSP) EXPOS COVID-19] Onset: 03-20-2022 Viral infection (1 source) COVID-19; Translations: [COVID-19] Onset: 02-08-2023 Past or Other Problems Problem Classification Problem Date Documented Da te Episodic/Chronic Diabetes mellitus without complication (1 source) Other abnormal glucose; Translations: [OTHER ABNORMAL GLUCOSE] Onset: 10-13-2022 Episodic Other aftercare (7 sources) 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; Translations: [OTH LONG-TERM CURRENT DRUG THERAPY] Onset: 10-22-2022 Episodic Other aftercare (7 sources) Taking high risk medication; Translations: [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] Onset: 10-14-2023 12-04-2023 Episodic Other liver diseases (4 sources) Abnormal levels of other serum enzymes; Translations: [ABNORMAL LEVELS OTHER SERUM ENZYMES] Onset: 11-02-2022 Episodic Other lower respiratory disease (3 sources) Dyspnea; Translations: [Shortness of breath] Onset: 10-14-2023 10-14-2023 Episodic Other non-traumatic joint disorders (1 source) Pain in unspecified joint; Translations: [PAIN IN UNSPECIFIED JOINT] Onset: 10-13-2022 Episodic Other screening for suspected conditions (not mental disorders or infectious disease) (3 sources) Abnormal results of liver function studies; Translations: [Encounter for screening for malignant neoplasm of prostate] Onset: 10-13-2022 Episodic Screening and history of mental health and substance abuse codes (20 sources) Ex-smoker; Translations: [Personal history of tobacco use] Onset: 06-03-2024 01-06-2025 Episodic Comment on above: QUIT IN 08/2021; Unclassified (3 sources) Onset: 12-04-2023 Resolved: 01-06-2025 12-04-2023 Results Test Name Value Interpretation Reference Range Facility CT cervical spine wo conon 0 03-30-2025 CT cervical spine wo con [facility] Main [place] [address] [place], [place] [id number] CT Scan Report Signed Patient: Remedios Magaña MR#: [id number] 4 : 1955 Acct:[id number] Age/Sex: 69 / M ADM Date: 03/29/25 Loc: ER Room: Type: [facility] ER Attending Dr: Copies to: Trinity Velez DO Ordering Provider: Trinity Velez DO Date of Service: 03/29/25 CT/CT head/brain wo con: fall, on eliquis ([id number]) CT/CT cervical spine wo con: fall CT head/brain wo con, CT cervical spine wo con 03/29/2025 9:00 PM SIGNS AND SYMPTOMS: fall, on eliquis TECHNIQUE:Multi-detector CT axial slices of the brain and cervical spine were obtained without IV contrast. Helical,sagittal, coronal, and 3-D reconstructions of the cervical spine were performed. CT was performed with one or more of the following dose reduction techniques: Automated exposure control, adjustment of the mA and/or kV according to patient size, or use of iterative reconstruction technique. COMPARISON: None. FINDINGS: Noncontrast head CT: There is no shift of the midline structures, acute intracranial bleeding, mass effects, or evidence of acute ischemia. Atherosclerotic changes are noted in the intracranial segments of the internal carotid arteries. The ventricular system is normal in size. The brainstem and the cerebellum are unremarkable. The visualized intraorbital contents, the visualized paranasal sinuses, and the infratemporal soft tissues show no acute abnormality. The osseous structures in the skull base and the calvarium show no abnormality. Cervical spine: There is preservation of the vertebral body heights. There is severe disc height loss at C5-C6 and C6-C7. Facet degenerative changes are present throughout cervical spine. No fractures or dislocations are seen. There is reversal of the normal cervical lordosis. The bones are otherwise in anatomic alignment. The craniocervical junction and atlantoaxial joint are within normal limits. The prevertebral soft tissues are within normal limits. The paraspinous soft tissues are within normal limits. The lung apices are unremarkable. Atherosclerotic changes are noted in the carotid bifurcations. CT/CT head/brain wo con IMPRESSION: No acute intracranial pathology. Chronic age-related neurodegenerative changes are noted as above. No acute cervical spine injury. Degenerative changes are noted throughout cervical spine. Impression dictated by: Jovanna Manzanares M.D. 03/30/2025 8:46 AM Dictation Location: [place] [address] Transcribed By: LAUREN 03/30/25 0846 Dictated By: Jovanna Manzanares II, MD 03/30/25 0840 Signed By: 03/30/25 0846 Normal The Count Includes [facility] XR shoulder LT min 2V*on XR shoulder LT min 2V* [facility] [place] [address] XRay Report Signed Patient: Remedios Magaña MR#: [id number] 4 : 1955 Acct:[id number] Age/Sex: 69 / M ADM Date: 03/29/25 Loc: ER Room: Type: [facility] ER Attending Dr: Copies to: Trinity Velez DO Ordering Provider: Trinity Velez DO Date of Service: 03/29/25 XR/XR shoulder LT min 2V*: Fall XR shoulder LT min 2V* 03/29/2025 9:00 PM SIGNS AND SYMPTOMS: Left shoulder pain after fall PROTOCOL: Frontal, Grashey, and scapular Y views of the left shoulder COMPARISON: None FINDINGS: Moderate hypertrophic changes are noted in the acromioclavicular joint. There is narrowing of the glenohumeral joint. There is no fracture or dislocation. Visualized left hemithorax is grossly intact. There is cortical irregularity at the greater tuberosity of the humeral head suspicious for underlying rotator cuff pathology. XR/XR shoulder LT min 2V* IMPRESSION: No fracture or dislocation. Degenerative changes are noted with findings suspicious for underlying rotator cuff pathology. Impression dictated by: Jovanna Manzanares M.D. 03/30/2025 8:57 AM Dictation Location: [place] [address] Transcribed By: LAUREN 03/30/25 0857 Dictated By: Jovanna Manzanares II, MD 03/30/25 0856 Signed By: 03/30/2557 Normal The Count Includes [facility] Alanine aminotransferase [En zymatic activity/volume] in Serum or PlasmaOrdered By: Trinity Velez on 03-29-2025 ALT [Catalytic activity/Vol] Alanine aminotransferase [Enzymatic activity/volume] in Serum or Plasma High 7-52 [facility] Albumin [Mass/volume] in Ser um or Plasma by Bromocresol green (BCG) dye binding methoOrdered By: Trinity Velez on 03-29-2025 Albumin BCG dye [Mass/Vol] Albumin [Mass/volume] in Serum or Plasma by Bromocresol green (BCG) dye binding metho 3.5-5.7 [facility] Alkaline phosphatase [Enzyma tic activity/volume] in Serum or PlasmaOrdered By: Trinity Velez on 03-29-2025 ALP [Catalytic activity/Vol] Alkaline phosphatase [Enzymatic activity/volume] in Serum or Plasma 34-104 [facility] Aspartate aminotransferase [ Enzymatic activity/volume] in Serum or PlasmaOrdered By: Trinity Velez on 03-29-2025 AST [Catalytic activity/Vol] Aspartate aminotransferase [Enzymatic activity/volume] in Serum or Plasma High 13-39 [facility] Basophils Auto (Bld) [#/Vol] Ordered By: Trinity Velez on 03-29-2025 Basophils (Bld) [#/Vol] Automated basophil count 0.0-0.2 [facility] Basophils/100 WBC Auto (Bld) Ordered By: Trinity Velez on 03-29-2025 Basophils/100 WBC (Bld) Automated basophil % . [facility] Bilirubin.total [Mass/volume ] in Serum or PlasmaOrdered By: Trinity Velez on 03-29-2025 Bilirubin [Mass/Vol] Bilirubin.total [Mass/volume] in Serum or Plasma 0.3-1.0 [facility] Calcium [Mass/volume] in Ser um or PlasmaOrdered By: Trinity Velez on 03-29-2025 Calcium [Mass/Vol] Calcium [Mass/volume ] in Serum or Plasma Low 8.6-10.3 [facility] Carbon dioxide, total [Moles /volume] in Serum or PlasmaOrdered By: Trinity Velez on 03-29-2025 CO2 [Moles/Vol] Carbon dioxide, tota l [Moles/volume] in Serum or Plasma 21.0-31.0 [facility] Chloride [Moles/volume] in S thompson or PlasmaOrdered By: Trinity Velez on 03-29-2025 Chloride [Moles/Vol] Chloride [Moles/vol ume] in Serum or Plasma Low 98-107 [facility] Complete Blood Count Auto Di ffon 03-29-2025 Basophils (Bld) [#/Vol] 0.1 10*3/uL Normal 0.0-0.2 The Count Includes [facility] Comment on above: Result Comment: PERF ORMED BY: [place] [address] PATHOLOGIST SECURITY ANALYST EMEKA GOMEZ M.D. Performed By: #### C K, CBC, CMP #### [address] #### MYOG #### [facility] , Basophils/100 WBC (Bld) 1.4 % Normal . The Count Includes [facility] Comment on above: Performed By: #### C K, CBC, CMP #### [place] [address] [place] #### MYOG #### [facility] , Eosinophils (Bld) [#/Vol] 0.1 10*3/uL Normal 0.0-0.45 The Count Includes [facility] Comment on above: Performed By: #### C K, CBC, CMP #### [place] [address] [place] #### MYOG #### [facility] , Eosinophils/100 WBC (Bld) 2.0 % Normal . The Count Includes [facility] Comment on above: Performed By: #### C K, CBC, CMP #### [place] [address] [place] #### MYOG #### [facility] , Erythrocyte distribution width (RBC) [Ratio] 13.3 % Normal 12.0-14.8 The Count Includes [facility] Comment on above: Performed By: #### C K, CBC, CMP #### [place] [address] [place] #### MYOG #### [facility] , Hematocrit (Bld) [Volume fraction] 41.8 % Normal 38.8-50.0 The Count Includes [facility] Comment on above: Performed By: #### C K, CBC, CMP #### [place] [address] [place] #### MYOG #### [facility] , Hemoglobin (Bld) [Mass/Vol] 14.8 g/dL Normal 13.0-17.0 The Count Includes [facility] Comment on above: Performed By: #### C K, CBC, CMP #### [place] [address] [place] #### MYOG #### [facility] , Lymphocytes (Bld) [#/Vol] 1.0 10*3/uL Normal 1.00-4.8 The Count Includes [facility] Comment on above: Performed By: #### C K, CBC, CMP #### [place] [address] [place] #### MYOG #### [facility] , Lymphocytes/100 WBC (Bld) 16.6 % Normal . The Count Includes [facility] Comment on above: Performed By: #### C K, CBC, CMP #### [place] [address] [place] #### MYOG #### [facility] , MCH (RBC) [Entitic mass] 31.8 pg Normal 27.5-35.2 The Count Includes [facility] Comment on above: Performed By: #### C K, CBC, CMP #### [place] [address] [place] #### MYOG #### [facility] , MCV (RBC) [Entitic vol] 90.0 fL Normal 83.5-101 The Count Includes [facility] Comment on above: Performed By: #### C K, CBC, CMP #### [place] [address] [place] #### MYOG #### [facility] , Mean Corpuscular HGB Conc 35.4 g/dL Normal 32.5-35.6 The Count Includes [facility] Comment on above: Performed By: #### C K, CBC, CMP #### [place] [address] [place] #### MYOG #### [facility] , Monocytes (Bld) [#/Vol] 0.9 10*3/uL High 0.0-0.8 The Count Includes [facility] [facility] Comment on above: Performed By: #### C K, CBC, CMP #### [place] [address] [place] #### MYOG #### [facility] , Monocytes/100 WBC (Bld) 18.01 % Normal 0.00-20.00 The Count Includes The [facility] Comment on above: Performed By: #### C K, CBC, CMP #### [place] [address] [place] #### MYOG #### [facility] , Monocytes/100 WBC (Bld) 14.8 % Normal . The Count Includes [facility] Comment on above: Performed By: #### C K, CBC, CMP #### [place] [address] [place] #### MYOG #### [facility] , Neutrophils (Bld) [#/Vol] 4.1 10*3/uL Normal 1.8-7.7 The Count Includes [facility] Comment on above: Performed By: #### C K, CBC, CMP #### [place] [address] [place] #### MYOG #### [facility] , Neutrophils/100 WBC (Bld) 65.2 % Normal . The Count Includes [facility] Comment on above: Performed By: #### C K, CBC, CMP #### [place] [address] [place] #### MYOG #### [facility] , NRBC% 0.0 /100{WBC} Normal 0-0.5 The [facility] Comment on above: Performed By: #### C K, CBC, CMP #### [place] [address] [place] #### MYOG #### [facility] , Platelet mean volume (Bld) [Entitic vol] 8.6 fL Normal 6.6-10.1 The [facility] Comment on above: Performed By: #### C K, CBC, CMP #### [place] [address] [place] #### MYOG #### [facility] , Platelets (Bld) [#/Vol] 198 10*3/uL Normal 150-450 The Count Includes [facility] Comment on above: Performed By: #### C K, CBC, CMP #### [place] [address] [place] #### MYOG #### [facility] , RBC (Bld) [#/Vol] 4.64 10*6/uL Normal 3.90-5.60 The [facility] Comment on above: Performed By: #### C K, CBC, CMP #### [place] [address] [place] #### MYOG #### [facility] , WBC (Bld) [#/Vol] 6.3 10*3/uL Normal 4.1-10.5 The [facility] Comment on above: Performed By: #### C K, CBC, CMP #### [facility] [address] [place] [address] [place] #### MYOG #### [facility] , Comprehensive Metabolic Pane ana 03-29-2025 Albumin [Mass/Vol] 4.3 g/dL Normal 3.5-5.7 The [facility] Comment on above: Performed By: #### C K, CBC, CMP #### [facility] [address] [place] [address] [place] #### MYOG #### [facility] , Albumin/Globulin [Mass ratio] 1.6 {ratio} Normal The Count Includes [facility] Comment on above: Performed By: #### C K, CBC, CMP #### [place] [address] [place] #### MYOG #### [facility] , ALP [Catalytic activity/Vol] 43 U/L Normal 34-104 The Count Includes [facility] Comment on above: Performed By: #### C K, CBC, CMP #### [place] [address] [place] #### MYOG #### [facility] , ALT [Catalytic activity/Vol] 98 U/L High 7-52 The Count Includes [facility] Comment on above: Performed By: #### C K, CBC, CMP #### [facility] [address] [place] [address] [place] #### MYOG #### [facility] , Anion gap [Moles/Vol] 14.3 mmol/L Normal 6.0-15.0 Th e Count Includes [facility] Comment on above: Performed By: #### C K, CBC, CMP #### [facility] [address] [place] [address] [place] #### MYOG #### [facility] , AST [Catalytic activity/Vol] 81 U/L High 13-39 The Count Includes [facility] Comment on above: Performed By: #### C K, CBC, CMP #### [place] [address] [place] #### MYOG #### [facility] , Bilirubin [Mass/Vol] 0.9 mg/dL Normal 0.3-1.0 The Count Includes [facility] Comment on above: Performed By: #### C K, CBC, CMP #### [place] [address] [place] #### MYOG #### [facility] , Calcium [Mass/Vol] 8.3 mg/dL Low 8.6-10.3 The [facility] Comment on above: Performed By: #### C K, CBC, CMP #### [place] [address] [place] #### MYOG #### [facility] , Chloride [Moles/Vol] 95 mmol/L Low 98-107 The Count Includes [facility] Comment on above: Performed By: #### C K, CBC, CMP #### [place] [address] [place] #### MYOG #### [facility] , CO2 [Moles/Vol] 23.2 mmol/L Normal 21.0-31.0 The [facility] Comment on above: Performed By: #### C K, CBC, CMP #### [place] [address] [place] #### MYOG #### [facility] , Creatinine [Mass/Vol] 0.84 mg/dL Normal 0.70-1.30 The Count Includes [facility] Comment on above: Performed By: #### C K, CBC, CMP #### [place] [address] [place] #### MYOG #### [facility] , Creatinine Clr Calc Pharmacy 101.57 Normal The Count Includes [facility] Comment on above: Result Comment: PERF ORMED BY: [place] [address] PATHOLOGIST SECURITY ANALYST EMEKA GOMEZ M.D. Performed By: #### C K, CBC, CMP #### [place] [address] [place] #### MYOG #### [facility] , GFR/1.73 sq M.predicted MDRD (S/P/Bld) [Vol rate/Area] mL/min/{1.73_m2} Normal The Count Includes [facility] Comment on above: Performed By: #### C K, CBC, CMP #### [place] [address] [place] #### MYOG #### [facility] , Globulin (S) [Mass/Vol] 2.7 g/dL Normal The Count Includes [facility] Comment on above: Performed By: #### C K, CBC, CMP #### [place] [address] [place] #### MYOG #### [facility] , Glucose [Mass/Vol] 129 mg/dL High 70-100 The [facility] Comment on above: Result Comment: [place] Glucose Reference Range is dependent on time and content of last meal. Glucose of more than 200 mg/dL in a nonstressed, ambulatory subject supports the diagnosis of Diabetes Mellitus. ADA recommended reference range Performed By: #### C K, CBC, CMP #### [place] [address] [place] #### MYOG #### [facility] , Potassium [Moles/Vol] 4.5 mmol/L Normal 3.5-5.1 The Count Includes [facility] Comment on above: Performed By: #### C K, CBC, CMP #### [place] [address] [place] #### MYOG #### [facility] , Protein [Mass/Vol] 7.0 g/dL Normal 6.4-8.9 The [facility] Comment on above: Performed By: #### C K, CBC, CMP #### [place] [address] [place] #### MYOG #### [facility] , Sodium [Moles/Vol] 128 mmol/L Low 136-145 The [facility] Comment on above: Performed By: #### C K, CBC, CMP #### [facility] [address] [place] [address] [place] #### MYOG #### [facility] , Urea nitrogen [Mass/Vol] 15 mg/dL Normal 7-25 The Count Includes [facility] Comment on above: Performed By: #### C K, CBC, CMP #### [place] [address] [place] #### MYOG #### [facility] , Creatine Kinaseon 03-29-2025 CK [Catalytic activity/Vol] 379 U/L High 30-223 The Count Includes [facility] Comment on above: Result Comment: PERF ORMED BY: [place] [address] PATHOLOGIST SECURITY ANALYST EMEKA GOMEZ M.D. Performed By: #### C K, CBC, CMP #### [place] [address] [place] #### MYOG #### [facility] , Creatine kinase [Enzymatic a ctivity/volume] in Serum or PlasmaOrdered By: Trinity Velez on 03-29-2025 CK [Catalytic activity/Vol] Creatine kinase [Enzymatic activity/volume] in Serum or Plasma High 30-223 [facility] Creatinine [Mass/volume] in Serum or PlasmaOrdered By: Trinity Velez on 03-29-2025 Creatinine [Mass/Vol] Creatinine [Mass/v olume] in Serum or Plasma 0.70-1.30 [facility] Eosinophils Auto (Bld) [#/Vo l]Ordered By: Trinity Velez on 03-29-2025 Eosinophils (Bld) [#/Vol] Automated eosinophil count 0.0-0.45 [facility] Eosinophils/100 WBC Auto (Bl d)Ordered By: Trinity Velez on 03-29-2025 Eosinophils/100 WBC (Bld) Automated eosinophil % . [facility] Erythrocyte distribution wid th Auto (RBC) [Ratio]Ordered By: Trinity Velez on 03-29-2025 Erythrocyte distribution width (RBC) [Ratio] Erythrocyte distribution width [Ratio] by Automated count 12.0-14.8 [facility] Globulin Calc (S) [Mass/Vol] Ordered By: Trinity Velez on 03-29-2025 Globulin (S) [Mass/Vol] Serum globulin measurement by calculation (mass/volume) [facility] Glucose [Mass/volume] in Ser um or PlasmaOrdered By: Trinity Velez on 03-29-2025 Glucose [Mass/Vol] Glucose [Mass/volume ] in Serum or Plasma High 70-100 [facility] Comment on above: ADA recommended refe rence rangeRandom Glucose Reference Range is dependent on time and content of last meal. Glucose of more than 200 mg/dL in a nonstressed, ambulatory subject supports the diagnosis of Diabetes Mellitus. Hematocrit Auto (Bld) [Volum e fraction]Ordered By: Trinity Velez on 03-29-2025 Hematocrit (Bld) [Volume fraction] Hematocrit [Volume Fraction] of Blood by Automated count 38.8-50.0 [facility] Hemoglobin [Mass/volume] in BloodOrdered By: Trinity Velez on 03-29-2025 Hemoglobin (Bld) [Mass/Vol] Hemoglobin [Mass/volume] in Blood 13.0-17.0 [facility] Leukocytes [#/volume] correc melita for nucleated erythrocytes in Blood by Automated counOrdered By: Trinity Velez on 03-29-2025 WBC corrected for nucl RBC Auto (Bld) [#/Vol] Leukocytes [#/volume] corrected for nucleated erythrocytes in Blood by Automated coun 4.1-10.5 [facility] Lymphocytes Auto (Bld) [#/Vo l]Ordered By: Trinity Velez on 03-29-2025 Lymphocytes (Bld) [#/Vol] Lymphocytes [#/volume] in Blood by Automated count 1.00-4.8 [facility] Lymphocytes/100 WBC Auto (Bl d)Ordered By: Trinity Velez on 03-29-2025 Lymphocytes/100 WBC (Bld) Lymphocytes/100 leukocytes in Blood by Automated count . [facility] MCH Auto (RBC) [Entitic mass ]Ordered By: Trinity Velez on 03-29-2025 MCH (RBC) [Entitic mass] MCH [Entitic mass] by Automated count 27.5-35.2 [facility] MCHC Auto (RBC) [Mass/Vol]Or dered By: Trinity Velez on 03-29-2025 MCHC (RBC) [Mass/Vol] MCHC [Mass/volume] by Automated count 32.5-35.6 [facility] MCV Auto (RBC) [Entitic vol] Ordered By: Trinity Velez on 03-29-2025 MCV (RBC) [Entitic vol] MCV [Entitic volume] by Automated count 83.5-101 [facility] Monocyte distribution width [Entitic volume] in Blood by AutomatedOrdered By: Trinity Velez on 03-29-2025 Monocyte distribution width Auto (Bld) [Entitic vol] Monocyte distribution width [Entitic volume] in Blood by Automated 0.00-20.00 [facility] Monocytes Auto (Bld) [#/Vol] Ordered By: Trinity Velez on 03-29-2025 Monocytes (Bld) [#/Vol] Automated blood monocyte count High 0.0-0.8 [facility] Monocytes/100 WBC Auto (Bld) Ordered By: Trinity Velez on 03-29-2025 Monocytes/100 WBC (Bld) Automated monocyte % . [facility] Myoglobinon 03-29-2025 Myoglobin [Mass/Vol] 289 ng/mL High 28-72 The Count Includes [facility] Comment on above: Result Comment: Perf ormed at: CB - [facility] [address] [id number] Design Engineer Products: Isak Schuler PhD, Phone: [phone] PERFORMED BY: [address] [id number] PATHOLOGIST SECURITY ANALYST EMEKA GOMEZ M.D. Performed By: #### C K, CBC, CMP #### [facility] [address] #### MYOG #### [facility] , Neutrophils Auto (Bld) [#/Vo l]Ordered By: Trinity Velez on 03-29-2025 Neutrophils (Bld) [#/Vol] Neutrophils [#/volume] in Blood by Automated count 1.8-7.7 [facility] Neutrophils/100 WBC Auto (Bl d)Ordered By: Trinity Velez on 03-29-2025 Neutrophils/100 WBC (Bld) Automated neutrophil % . [facility] No Panel InformationOrdered By: Trinity Velez on 03-29-2025 Estimated GFR (CKD-EPI) > 60.0 mL/Min [facility] Creatinine Clearance (Chem 101.57 [facility] Nucleated erythrocytes [Pres ence] in Blood by Automated countOrdered By: Trinity Velez on 03-29-2025 Nucleated RBC Auto Ql (Bld) Nucleated erythrocytes [Presence] in Blood by Automated count 0-0.5 [facility] Platelet mean volume Auto (B ld) [Entitic vol]Ordered By: Trinity Velez on 03-29-2025 Platelet mean volume (Bld) [Entitic vol] Platelet mean volume [Entitic volume] in Blood by Automated count 6.6-10.1 [facility] Platelets Auto (Bld) [#/Vol] Ordered By: Trinity Velez on 03-29-2025 Platelets (Bld) [#/Vol] Platelets [#/volume] in Blood by Automated count 150-450 [facility] Potassium [Moles/volume] in Serum or PlasmaOrdered By: Trinity Velez on 03-29-2025 Potassium [Moles/Vol] Potassium [Moles/v olume] in Serum or Plasma 3.5-5.1 [facility] Protein [Mass/volume] in Ser um or PlasmaOrdered By: Trinity Velez on 03-29-2025 Protein [Mass/Vol] Protein [Mass/volume ] in Serum or Plasma 6.4-8.9 [facility] RBC Auto (Bld) [#/Vol]Ordere d By: Trinity Velez on 03-29-2025 RBC (Bld) [#/Vol] Erythrocytes [#/volu me] in Blood by Automated count 3.90-5.60 [facility] Serum or plasma albumin/glob ulin mass ratioOrdered By: Trinity Velez on 03-29-2025 Albumin/Globulin [Mass ratio] Serum or plasma albumin/globulin mass ratio [facility] Serum or plasma anion gap de terminationOrdered By: Trinity Velez on 03-29-2025 Anion gap [Moles/Vol] Serum or plasma an ion gap determination 6.0-15.0 [facility] Sodium [Moles/volume] in Ser um or PlasmaOrdered By: Trinity Velez on 03-29-2025 Sodium [Moles/Vol] Sodium [Moles/volume ] in Serum or Plasma Low 136-145 [facility] Urea nitrogen [Mass/volume] in Serum or PlasmaOrdered By: Trinity Velez on 03-29-2025 Urea nitrogen [Mass/Vol] Urea nitrogen [Mass/volume] in Serum or Plasma 7-25 [facility] WBC Auto (Bld) [#/Vol]Ordere d By: Trinity Velez on 03-29-2025 WBC (Bld) [#/Vol] Leukocytes [#/volume ] in Blood by Automated count 4.1-10.5 [facility] X-ray reportOrdered By: Jovanna Manzanares on 03-29-2025 Study report [facility] [place] [address] XRay Report Signed Patient: Remedios Magaña MR#: [id number] : 1955 Acct:[id number] Age/Sex: 69 / M ADM Date: 5 Loc: ER Room: Type: [facility] ER Attending Dr: Copies to: Trinity Velez DO~ Ordering Provider: Trinity Velez DO Date of Service: 03/29/25 XR/XR shoulder LT min 2V*: Fall XR shoulder LT min 2V* 03/29/2025 9:00 PM SIGNS AND SYMPTOMS: Left shoulder pain after fall PROTOCOL: Frontal, Grashey, and scapular Y views of the left shoulder COMPARISON: None FINDINGS: Moderate hypertrophic changes are noted in the acromioclavicular joint. There is narrowing of the glenohumeral joint. There is no fracture or dislocation. Visualized left hemithorax is grossly intact. There is cortical irregularity atthe greater tuberosity of the humeral head suspicious for underlying rotator cuff pathology. XR/XR shoulder LT min 2V* IMPRESSION: No fracture or dislocation. Degenerative changes are noted with findings suspicious for underlying rotator cuff pathology. Impression dictated by: Jovanna Manzanares M.D. 03/30/2025 8:57 AM Dictation Location: [facility]- Transcribed By: [facility] 03/30/25 0857 Dictated By: Jovanna Manzanares II, MD 03/30/25 0856 Signed By: 03/30/25 0857 [facility] Work Phone: [facility] US ABDOMINAL AORTA ANEU [facility] AAA SCREENINGon 03-18-2025 [facility] US ABDOMINAL AORTA ANEURYSM AAA SCREENING [address], [address] [place] [address] Vascular Lab Report [facility] US ABDOMINAL AORTA ANEURYSM AAA SCREENING Patient Name: REMEDIOS ALEXUS Black Physician: Shantel Recinos MD, FACTimur Study Date: 03/18/2025 Ordering Provider: [id number] RECINOS MRN/PID: [id number] Fellow: Technologist: Yadira Atkins RDCS Rojas Date of /Age: 12 1955 / 69 years Technologist 2: Gender: M Admission Status: Outpatient Location Performed: [facility] Diagnosis/ICD: Essential primary hypertension-I10; Personal history of tobacco use-Z87.891 Indication: Hyperlipidemia, Atrial Flutter, COPD CPT Codes: 73481 Ultrasound, abdominal aorta, real time with image documentation, screening study for (AAA) CONCLUSIONS: Imaging & Doppler Findings: AORTA AP Lateral Distal 2.53 cm 2.44 cm [id number] Recinos MD, FACC Final Normal [facility] ECG 12 Leadon 01-06-2025 ECG revealed sinus bradycardia with first-degree AV block, left axis deviation, 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, abnormal ECG [facility] Work Phone: Physician Referralon 024 Physician Referral [phone] [id number] Normal [facility] ECG 12 Leadon 12-04-2023 ECG revealed normal sinus rhythm with first-degree AV block and left axis deviation [facility] Work Phone: GLYCOHEMOGLOBIN A1Con 2022 ADA RECOMMENDATION SEE BELOW Normal [facility] Comment on above: Result Comment: ADA RECOMMENDED LIMIT 4.0 - 6.0 ADA THERAPEUTIC TARGET < 7.0 ACTION SUGGESTED > 7.0 Performed By: #### A 1C #### [facility] [address] [place] [address] Dr. Igor Hayes Glucose [Mass/Vol] 137 mg/dL Normal [facility] Comment on above: Performed By: #### A 1C #### [facility] [address] [place] [address] Dr. Igor Hayes HbA1c (Bld) [Mass fraction] 6.4 % Critically high 4.5-6.2 [facility] Comment on above: Performed By: #### A 1C #### [facility] [address] [place] [address] Dr. Igor Hayes LIPID PROFILEon 03-08-2023 CHOL-HDL RATIO NORM SEE BELOW Normal [facility] Comment on above: Result Comment: 3.3 - 4.4 LOW RISK 4.4 - 7.1 AVERAGE RISK 7.1 - 11.0 MODERATE RISK >11.0 HIGH RISK Performed By: #### A 1C #### [facility] [address] [place] [address] Dr. Igor Hayes Cholesterol [Mass/Vol] 181 mg/dL Normal <=200 [facility] Comment on above: Performed By: #### A 1C #### [facility] [address] [address] [address] Igor Hayes Cholesterol in HDL [Mass/Vol] 64 mg/dL Critically high 40-60 [facility] Comment on above: Performed By: #### A 1C #### [facility] [address] [address] [address] Igor Hayes Cholesterol in LDL [Mass/Vol] 99.2 mg/dL Normal [facility] Comment on above: Performed By: #### A 1C #### [facility] [address] [address] [address] Igor Hayes Cholesterol.total/Chol esterol in HDL [Mass ratio] 2.8 {ratio} Normal [facility] Comment on above: Performed By: #### A 1C #### [facility] [address] [address] [address] Igor Hayes HDL NORMAL > or = 60 mg/dl - LO W CARDIOVASCULAR RISK <40 mg/dl - HIGH CARDIOVASCULAR RISK Normal [facility] Comment on above: Performed By: #### A 1C #### [facility] [address] [address] [address] Igor Hayes LDL CALC NORMAL SEE BELOW Normal [facility] Comment on above: Result Comment: <100 mg/dl OPTIMAL 100 - 129 mg/dl NEAR OR ABOVE OPTIMAL 130 - 159 mg/dl BORDERLINE HIGH 160 - 189 mg/dl HIGH >190 mg/dl VERY HIGH Performed By: #### A 1C #### [facility] [address] [address] [address] Igor Hayes Triglyceride [Mass/Vol] 89 mg/dL Normal <=150 [facility] Comment on above: Performed By: #### A 1C #### [facility] [address] [address] [address] Igro Hayes VLDL CALC 17.8 mg/dL Normal [facility] Comment on above: Performed By: #### A 1C #### [facility] [address] [address] [address] Igor Hayes INFLUENZA A AND B AGon 02-[address] [facility] Normal [facility] Comment on above: Result Comment: Nega tive for Flu A protein angiten. Infection due to Flu A cannot be ruled out. Flu A angiten in the sample may be below the detection limit of the test. Performed By: #### O BSCRN #### [facility] [address] [place] [address] Dr. [facility] Normal [facility] Comment on above: Result Comment: Nega tive for Flu B protein antigen. Infection due to Flu B cannot be ruled out. Flu B antigen in the sample may be below the detection limit of the test. Performed By: #### O BSCRN #### [facility] [address] [place] [address] Dr. Igor Hayes INFLUENZA A AG Negative Normal NEGATIVE SEE COMMENT [facility] Comment on above: Performed By: #### O BSCRN #### [facility] [address] [place] [address] Dr. Igor Hayes INFLUENZA B AG Negative Normal NEGATIVE SEE COMMENT [facility] Comment on above: Performed By: #### O BSCRN #### [facility] [address] [place] [address] Dr. Igor Hayes SYMPTOMATIC COVID-19 ANTIGEN on 02-01-2023 EUA Statement SEE BELOW Normal [facility] Comment on above: Result Comment: This test [...] sooner. Performed By: #### A 1C #### [facility] [address] [place] [address] Dr. Igor Hayes SARS-CoV-2 (COVID-19) RNA VERONIQUE+probe Ql (Unsp spec) Positive Abnormal NEGATIVE [facility] Comment on above: Performed By: #### A 1C #### [facility] [address] [place] [address] Dr. Igor Hayes HEMOGLOBINon 01-10-2023 Hemoglobin (Bld) [Mass/Vol] 14.4 g/dL Normal 14.0-18.0 [facility] Comment on above: Performed By: #### H GB #### [facility] [address] [place] [address] Dr. Igor Hayes PROF CHEM 8 (BAS METB)on Anion gap [Moles/Vol] 8.4 mmol/L Normal [facility] Comment on above: Performed By: #### O BSCRN #### [facility] [address] [place] [address] Dr. Igor Hayes Calcium [Mass/Vol] 8.9 mg/dL Normal 8.5-10.1 [facility] Comment on above: Performed By: #### O BSCRN #### [facility] [address] [place] [address] Dr. Igor Hayes Chloride [Moles/Vol] 103 mmol/L Normal 98-107 [facility] Comment on above: Performed By: #### O BSCRN #### [facility] [address] [place] [address] Dr. Igor Hayes CO2 [Moles/Vol] 31.2 mmol/L Normal 21.0-32.0 [facility] Comment on above: Performed By: #### O BSCRN #### [facility] [address] [place] [address] Dr. Igor Hayes Creatinine [Mass/Vol] 1.02 mg/dL Normal 0.70-1.30 [facility] Comment on above: Performed By: #### O BSCRN #### [facility] [address] [place] [address] Dr. Igor Hayes EGFR-AF ZIMBABWEAN >60 Normal >=60 [facility] Comment on above: Performed By: #### O BSCRN #### [facility] [address] [address] [address] Igor Hayes EGFR-NON AF ZIMBABWEAN >60 Normal >=60 [facility] Comment on above: Performed By: #### O BSCRN #### [facility] [address] [address] [address] Igor Hayes Glucose [Mass/Vol] 133 mg/dL Critically high 74-106 [facility] [place] Comment on above: Performed By: #### O BSCRN #### [facility] [address] [address] [address] Igor Hayes Potassium [Moles/Vol] 4.6 mmol/L Normal 3.5-5.1 [facility] Comment on above: Performed By: #### O BSCRN #### [facility] [address] [place] [address] Dr. Igor Hayes Sodium [Moles/Vol] 138 mmol/L Normal 136-145 [facility] Comment on above: Performed By: #### O BSCRN #### [facility] [address] [address] [address] Igor Hayes Urea nitrogen [Mass/Vol] 17.0 mg/dL Normal 7.0-18.0 [facility] Comment on above: Performed By: #### O BSCRN #### [facility] [address] [address] [address] Igor Hayes Urea nitrogen/Creatinine [Mass ratio] 16.7 mg/mg Normal [facility] Comment on above: Performed By: #### O BSCRN #### [facility] [address] [address] [address] Igor Hayes SGOTon 01-10-2023 AST [Catalytic activity/Vol] 36 U/L Normal 15-37 [facility] Comment on above: Performed By: #### O BSCRN #### [facility] [address] [address] [address] Igor Hayes TSHon 01-10-2023 TSH 4.230 uIU/mL Critically high 0.358-3.74 0 [facility] Comment on above: Performed By: #### O BSCRN #### [facility] [id number] Igor Hayes XR CHEST 2 Von [...] by: DEE BARTON Date: 2023-01-10 13:02 Normal [facility] Prothrombin Time INRon 01-01 INR Coag (PPP) [Relative time] 2.9 {INR} [employer] Other Prothrombin Time INR [facility] [employer] Other Prothrombin Time INRon 12-10 INR Coag (PPP) [Relative time] 2.7 {INR} [employer] Other Prothrombin Time INR [facility] [employer] Other Prothrombin Time INRon 11-26 INR Coag (PPP) [Relative time] 2.6 {INR} [employer] Other Prothrombin Time INR [employer] Other Prothrombin Time INRon 11-15 INR Coag (PPP) [Relative time] 3.2 {INR} [employer] Other Prothrombin Time INR [employer] Other LIPID PROFILEon 11-14-2022 CHOL-HDL RATIO NORM SEE BELOW Normal [facility] Comment on above: Result Comment: 3.3 - 4.4 LOW RISK 4.4 - 7.1 AVERAGE RISK 7.1 - 11.0 MODERATE RISK >11.0 HIGH RISK Performed By: #### O BSCRN #### [facility] [id number] Igor Hayes Cholesterol [Mass/Vol] 186 mg/dL Normal <=200 [facility] Comment on above: Performed By: #### O BSCRN #### [facility] [address] [address] [address] Igor Hayes Cholesterol in HDL [Mass/Vol] 64 mg/dL Critically high 40-60 [facility] Comment on above: Performed By: #### O BSCRN #### [facility] [address] [address] [address] Igor Hayes Cholesterol in LDL [Mass/Vol] 99.0 mg/dL Normal [facility] Comment on above: Performed By: #### O BSCRN #### [facility] [address] [address] [address] Igor Hayes Cholesterol.total/Chol esterol in HDL [Mass ratio] 2.9 {ratio} Normal [facility] Comment on above: Performed By: #### O BSCRN #### [facility] [address] [address] [address] Igor Hayes HDL NORMAL > or = 60 mg/dl - LO W CARDIOVASCULAR RISK <40 mg/dl - HIGH CARDIOVASCULAR RISK Normal [facility] Comment on above: Performed By: #### O BSCRN #### [facility] [address] [address] [address] Igor Hayes LDL CALC NORMAL SEE BELOW Normal [facility] Comment on above: Result Comment: <100 mg/dl OPTIMAL 100 - 129 mg/dl NEAR OR ABOVE OPTIMAL 130 - 159 mg/dl BORDERLINE HIGH 160 - 189 mg/dl HIGH >190 mg/dl VERY HIGH Performed By: #### O BSCRN #### [facility] [address] [address] [address] Igor Hayes Triglyceride [Mass/Vol] 115 mg/dL Normal <=150 [facility] Comment on above: Performed By: #### O BSCRN #### [facility] [address] [address] [address] Igor Hayes VLDL CALC 23.0 mg/dL Normal [facility] Comment on above: Performed By: #### O BSCRN #### [facility] [address] [place] [address] Dr. Igor Hayes Tobacco Screening.on 023 Adult depression screening assessment No [facility] [address] DO Work Phone: Fall risk assessment a) No falls within the last year [facility] [address] DO Work Phone: Tobacco use status CPHS b) No [facility] 250 DO Work Phone: AMMONIAon 11-02-2022 Ammonia (P) [Moles/Vol] 12 umol/L Normal 11-32 [facility] Comment on above: Performed By: #### A 1C #### [facility] [address] [place] [address] Dr. Igor Hayes PROF 14(COMP METB)on 022 Albumin [Mass/Vol] 3.9 g/dL Normal 3.4-5.0 [facility] Comment on above: Performed By: #### A 1C #### [facility] [address] [place] [address] Dr. Igor Hayes Albumin/Globulin [Mass ratio] 1.1 {ratio} Normal [facility] Comment on above: Performed By: #### A 1C #### [facility] [address] [place] [address] Dr. Igor Hayes ALP [Catalytic activity/Vol] 48 U/L Normal 46-116 [facility] Comment on above: Performed By: #### A 1C #### [facility] [address] [place] [address] Dr. Igor Hayes ALT [Catalytic activity/Vol] 70 U/L Critically high 16-63 [facility] Comment on above: Performed By: #### A 1C #### [facility] [address] [place] [address] Dr. Igor Hayes Anion gap [Moles/Vol] 13.5 mmol/L Normal [facility] Comment on above: Performed By: #### A 1C #### [facility] [address] [place] [address] Dr. Igor Hayes AST [Catalytic activity/Vol] 41 U/L Critically high 15-37 [facility] Comment on above: Performed By: #### A 1C #### [facility] [address] [address] [address] Igor Hayes Bilirubin [Mass/Vol] 0.6 mg/dL Normal 0.2-1.0 [facility] Comment on above: Performed By: #### A 1C #### [facility] [address] [address] [address] Igor Hayes Calcium [Mass/Vol] 9.0 mg/dL Normal 8.5-10.1 [facility] Comment on above: Performed By: #### A 1C #### [facility] [address] [place] [address] Dr. Igor Hayes Chloride [Moles/Vol] 102 mmol/L Normal 98-107 [facility] Comment on above: Performed By: #### A 1C #### [facility] [address] [place] [address] Dr. Igor Hayes CO2 [Moles/Vol] 28.9 mmol/L Normal 21.0-32.0 [facility] Comment on above: Performed By: #### A 1C #### [facility] [address] [place] [address] Dr. Igor Hayes Creatinine [Mass/Vol] 1.14 mg/dL Normal 0.70-1.30 [facility] Comment on above: Performed By: #### A 1C #### [facility] [address] [place] [address] Dr. Igor Hayes EGFR-AF ZIMBABWEAN >60 Normal >=60 [facility] Comment on above: Performed By: #### A 1C #### [facility] [address] [place] [address] Dr. Igor Hayes EGFR-NON AF ZIMBABWEAN >60 Normal >=60 [facility] Comment on above: Performed By: #### A 1C #### [facility] [address] [place] [address] Dr. Igor Hayes Globulin (S) [Mass/Vol] 3.7 g/dL Normal [facility] Comment on above: Performed By: #### A 1C #### [facility] [address] [address] [address] Igor Hayes Glucose [Mass/Vol] 166 mg/dL Critically high 74-106 [facility] Comment on above: Performed By: #### A 1C #### [facility] [address] [address] [address] Igor Hayes Potassium [Moles/Vol] 4.4 mmol/L Normal 3.5-5.1 [facility] Comment on above: Performed By: #### A 1C #### [facility] [address] [address] [address] Igor Hayes Protein [Mass/Vol] 7.6 g/dL Normal 6.4-8.2 [facility] Comment on above: Performed By: #### A 1C #### [facility] [address] [address] [address] Igor Hayes Sodium [Moles/Vol] 140 mmol/L Normal 136-145 [facility] Comment on above: Performed By: #### A 1C #### [facility] [address] [address] [address] Igor Hayes Urea nitrogen [Mass/Vol] 18.0 mg/dL Normal 7.0-18.0 [facility] Comment on above: Performed By: #### A 1C #### [facility] [address] [address] [address] Igor Hayes Urea nitrogen/Creatinine [Mass ratio] 15.8 mg/mg Normal [facility] Comment on above: Performed By: #### A 1C #### [facility] [address] [address] [address] Igor Hayes HEMOGLOBINon 10-22-2022 Hemoglobin (Bld) [Mass/Vol] 15.3 g/dL Normal 14.0-18.0 [facility] Comment on above: Performed By: #### A 1C #### [facility] [address] [address] [address] Igor Hayes PROF CHEM 8 (BAS METB)on Anion gap [Moles/Vol] 12.9 mmol/L Normal [facility] Comment on above: Performed By: #### A ST BMP, TSH #### [facility] [address] [address] [address] Igor Hayes Calcium [Mass/Vol] 9.2 mg/dL Normal 8.5-10.1 [facility] Comment on above: Performed By: #### A ST BMP, TSH #### [facility] [address] [address] [address] Igor Hayes Chloride [Moles/Vol] 103 mmol/L Normal 98-107 [facility] Comment on above: Performed By: #### A ST BMP, TSH #### [facility] [address] [place] [address] Dr. Igor Hayes CO2 [Moles/Vol] 29.7 mmol/L Normal 21.0-32.0 [facility] Comment on above: Performed By: #### A ST BMP, TSH #### [facility] [address] [place] [address] Dr. Igor Hayes Creatinine [Mass/Vol] 1.16 mg/dL Normal 0.70-1.30 [facility] Comment on above: Performed By: #### A ST BMP, TSH #### [facility] [address] [place] [address] Dr. Igor Hayes EGFR-AF ZIMBABWEAN >60 Normal >=60 [facility] Comment on above: Performed By: #### A ST BMP, TSH #### [facility] [address] [place] [address] Dr. Igor Hayes EGFR-NON AF ZIMBABWEAN >60 Normal >=60 [facility] Comment on above: Performed By: #### A ST BMP, TSH #### [facility] [address] [place] [address] Dr. Igor Hayes Glucose [Mass/Vol] 125 mg/dL Critically high 74-106 [facility] [place] Comment on above: Performed By: #### A ST BMP, TSH #### [facility] [address] [place] [address] Dr. Igor Hayes Potassium [Moles/Vol] 4.6 mmol/L Normal 3.5-5.1 [facility] Comment on above: Performed By: #### A ST BMP, TSH #### [facility] [address] [address] [address] Igor Hayes Sodium [Moles/Vol] 141 mmol/L Normal 136-145 [facility] Comment on above: Performed By: #### A ST BMP, TSH #### [facility] [address] [address] [address] Igor Hayes Urea nitrogen [Mass/Vol] 17.0 mg/dL Normal 7.0-18.0 [facility] Comment on above: Performed By: #### A ST BMP, TSH #### [facility] [address] [address] [address] Igor Hayes Urea nitrogen/Creatinine [Mass ratio] 14.7 mg/mg Normal [facility] Comment on above: Performed By: #### A ST BMP, TSH #### [facility] [address] [address] [address] Igor Hayes SGOTon 10-22-2022 AST [Catalytic activity/Vol] 49 U/L Critically high 15-37 [facility] Comment on above: Performed By: #### A ST BMP, TSH #### [facility] [address] [address] [address] Igor Hayes TSHon 10-22-2022 TSH 4.171 uIU/mL Critically high 0.358-3.74 0 [facility] Comment on above: Performed By: #### A ST, BMP, TSH #### [facility] [address] [address] [address] Igor Hayes US SINGLE QUAD RT [...] STANFORD GARCÍA Date: 2022-10-22 20:43 Normal [facility] XR CHEST 2 Von 10-22-2022 XR [...] by: STANFORD GARCÍA Date: 2022-10-22 20:38 Normal [facility] INSULINon 10-10-2022 Insulin 19.8 uIU/mL Normal 2.6-24.9 [facility] Comment on above: Performed By: #### A 1C #### [facility] [address] [place] [address] Dr. Igor Hayes CBC AUTO DIFFon 10-09-2022 BASO # 0.1 103/ul Normal 0.0-0.1 [facility] Comment on above: Performed By: #### A 1C #### [facility] [address] [place] [address] Dr. Igor Hayes Basophils/100 WBC (Bld) 1.7 % Normal 0.2-2.0 [facility] Comment on above: Performed By: #### A 1C #### [facility] [address] [place] [address] Dr. Igor Hayes EO # 0.2 103/ul Normal 0.0-0.7 [facility] Comment on above: Performed By: #### A 1C #### [facility] [address] [place] [address] Dr. Igor Hayes Eosinophils/100 WBC (Bld) 3.1 % Normal 0.9-7.0 [facility] Comment on above: Performed By: #### A 1C #### [facility] [address] [place] [address] Dr. Igor Hayes Erythrocyte distribution width (RBC) [Ratio] 12.9 % Normal 11.0-15.0 [facility] Comment on above: Performed By: #### A 1C #### [facility] [address] [place] [address] Dr. Igor Hayes Hematocrit (Bld) [Volume fraction] 45.5 % Normal 42.0-54.0 [facility] Comment on above: Performed By: #### A 1C #### [facility] [address] [place] [address] Dr. Igor Hayes Hemoglobin (Bld) [Mass/Vol] 15.1 g/dL Normal 14.0-18.0 [facility] Comment on above: Performed By: #### A 1C #### [facility] [address] [place] [address] Dr. Igor Hayes IG # 0.01 10e3/ul Normal 0.00-0.03 [facility] Comment on above: Performed By: #### A 1C #### [facility] [address] [place] [address] Dr. Igor Hayes IG % 0.2 % Normal 0.0-0.5 [facility] Comment on above: Performed By: #### A 1C #### [facility] [address] [place] [address] Dr. Igor Hayes LYMPH # 1.2 103/ul Normal 1.2-3.8 [facility] Comment on above: Performed By: #### A 1C #### [facility] [address] [place] [address] Dr. Igor Hayes Lymphocytes/100 WBC (Bld) 23.9 % Normal 20.5-60.0 [facility] Comment on above: Performed By: #### A 1C #### [facility] [address] [place] [address] Dr. Igor Hayes MANUAL DIFF REQ NO Normal [facility] Comment on above: Performed By: #### A 1C #### [facility] [address] [place] [address] Dr. Igor Hayes MCH (RBC) [Entitic mass] 29.3 pg Normal 25.9-34.0 [facility] Comment on above: Performed By: #### A 1C #### [facility] [address] [place] [address] Dr. Igor Hayes MCHC (RBC) [Mass/Vol] 33.2 g/dL Normal 29.9-35.2 [facility] Comment on above: Performed By: #### A 1C #### [facility] [address] [place] [address] Dr. Igor Hayes MCV (RBC) [Entitic vol] 88.2 fL Normal 80.0-94.0 [facility] Comment on above: Performed By: #### A 1C #### [facility] [address] [place] [address] Dr. Igor Hayes MONO # 0.6 103/ul Normal 0.3-0.8 [facility] Comment on above: Performed By: #### A 1C #### [facility] [address] [place] [address] Dr. Igor Hayes Monocytes/100 WBC (Bld) 12.3 % Critically high 1.7-12.0 [facility] Comment on above: Performed By: #### A 1C #### [facility] [address] [place] [address] Dr. Igor Hayes NEUT # 3.1 103/ul Normal 1.4-6.5 [facility] Comment on above: Performed By: #### A 1C #### [facility] [address] [place] [address] Dr. Igor Hayes Neutrophils/100 WBC (Bld) 58.8 % Normal 43.0-75.0 [facility] Comment on above: Performed By: #### A 1C #### [facility] [address] [place] [address] Dr. Igor Hayes Platelet mean volume (Bld) [Entitic vol] 10.0 fL Normal 9.5-13.5 [facility] Comment on above: Performed By: #### A 1C #### [facility] [address] [place] [address] Dr. Igor Hayes PLT 234 103/ul Normal 150-450 [facility] Comment on above: Performed By: #### A 1C #### [facility] [address] [place] [address] Dr. Igor Hayes RBC 5.16 106/ul Normal 4.70-6.10 [facility] Comment on above: Performed By: #### A 1C #### [facility] [address] [place] [address] Dr. Igor Hayes WBC 5.2 103/ul Normal 4.0-11.0 [facility] Comment on above: Performed By: #### A 1C #### [facility] [address] [place] [address] Dr. Igor Hayes GLYCOHEMOGLOBIN A1Con 2021 ADA RECOMMENDATION SEE BELOW Normal [facility] Comment on above: Result Comment: ADA RECOMMENDED LIMIT 4.0 - 6.0 ADA THERAPEUTIC TARGET < 7.0 ACTION SUGGESTED > 7.0 Performed By: #### A 1C #### [facility] [address] [place] [address] Dr. Igor Hayes Glucose [Mass/Vol] 123 mg/dL Normal [facility] Comment on above: Performed By: #### A 1C #### [facility] [address] [place] [address] Dr. Igor Hayes HbA1c (Bld) [Mass fraction] 5.9 % Normal 4.5-6.2 [facility] Comment on above: Performed By: #### A 1C #### [facility] [address] [place] [address] Dr. Igor Hayes OCC BLD IMMUNO SCREENon OCCULT BLOOD Negative Normal NEGATIVE [facility] Comment on above: Performed By: #### O BSCRN #### [facility] [address] [place] [address] Dr. Igor Hayes PROF 14(COMP METB)on 022 Albumin [Mass/Vol] 3.9 g/dL Normal 3.4-5.0 [facility] Comment on above: Performed By: #### U THUY, CMP #### [facility] [address] [address] [address] Igor Hayes Albumin/Globulin [Mass ratio] 1.0 {ratio} Normal [facility] Comment on above: Performed By: #### U THUY, CMP #### [facility] [address] [address] [address] Igor Hayes ALP [Catalytic activity/Vol] 45 U/L Critically low 46-116 [facility] Comment on above: Performed By: #### U THUY, CMP #### [facility] [address] [address] [address] Igor Hayes ALT [Catalytic activity/Vol] 83 U/L Critically high 16-63 [facility] Comment on above: Performed By: #### U THUY, CMP #### [facility] [address] [address] [address] Igor Hayes Anion gap [Moles/Vol] 11.6 mmol/L Normal [facility] Comment on above: Performed By: #### U THUY, CMP #### [facility] [address] [address] [address] Igor Hayes AST [Catalytic activity/Vol] 44 U/L Critically high 15-37 [facility] Comment on above: Performed By: #### U THUY, CMP #### [facility] [address] [address] [address] Igor Hayes Bilirubin [Mass/Vol] 0.7 mg/dL Normal 0.2-1.0 [facility] Comment on above: Performed By: #### U THUY, CMP #### [facility] [address] [address] [address] Igor Hayes Calcium [Mass/Vol] 8.8 mg/dL Normal 8.5-10.1 [facility] Comment on above: Performed By: #### U THUY, CMP #### [facility] [address] [address] [address] Igor Hayes Chloride [Moles/Vol] 102 mmol/L Normal 98-107 [facility] Comment on above: Performed By: #### U THUY, CMP #### [facility] [address] [address] [address] Igor Hayes CO2 [Moles/Vol] 29.1 mmol/L Normal 21.0-32.0 [facility] Comment on above: Performed By: #### U THUY, CMP #### [facility] [address] [address] [address] Igor Hayes Creatinine [Mass/Vol] 1.02 mg/dL Normal 0.70-1.30 [facility] Comment on above: Performed By: #### U THUY, CMP #### [facility] [address] [place] [address] Dr. Igor Hayes EGFR-AF ZIMBABWEAN >60 Normal >=60 [facility] Comment on above: Performed By: #### U THUY, CMP #### [facility] [address] [place] [address] Dr. Igor Hayes EGFR-NON AF ZIMBABWEAN >60 Normal >=60 [facility] Comment on above: Performed By: #### U THUY, CMP #### [facility] [address] [address] [address] Igor Hayes Globulin (S) [Mass/Vol] 3.9 g/dL Normal [facility] Comment on above: Performed By: #### U THUY, CMP #### [facility] [address] [address] [address] Igor Hayes Glucose [Mass/Vol] 132 mg/dL Critically high 74-106 T [place] Comment on above: Performed By: #### U THUY, CMP #### [facility] [address] [place] [address] Dr. Igor Hayes Potassium [Moles/Vol] 4.7 mmol/L Normal 3.5-5.1 [facility] Comment on above: Performed By: #### U THUY, CMP #### [facility] [address] [address] [address] Igor Hayes Protein [Mass/Vol] 7.8 g/dL Normal 6.4-8.2 [facility] Comment on above: Performed By: #### U THUY, CMP #### [facility] [address] [address] [address] Igor Hayes Sodium [Moles/Vol] 138 mmol/L Normal 136-145 [facility] Comment on above: Performed By: #### U THUY, CMP #### [facility] [address] [address] [address] Igor Hayes Urea nitrogen [Mass/Vol] 16.0 mg/dL Normal 7.0-18.0 [facility] Comment on above: Performed By: #### U THUY, CMP #### [facility] [address] [place] [address] Dr. Igor Hayes Urea nitrogen/Creatinine [Mass ratio] 15.7 mg/mg Normal [facility] Comment on above: Performed By: #### U THUY, CMP #### [facility] [address] [place] [address] Dr. Igor Hayes URIC ACID SERUMon 10-09-2022 Urate [Mass/Vol] 4.9 mg/dL Normal 3.5-7.2 [facility] Comment on above: Performed By: #### U THUY, CMP #### [facility] [address] [place] [address] Dr. Igor Hayes No Panel Informationon 07-30 13.1\S\13.1 Normal 6.0-15.0 [facility] 250 DO Work Phone: 9.4\S\9.4 Normal 8.2-10.2 [facility] 250 DO Work Phone: 27.5\S\27.5 Normal 22.0-30.0 [facility] 250 DO Work Phone: 101\S\101 Normal 95-114 [facility] 250 DO Work Phone: 4.6\S\4.6 Normal 3.5-5.1 [facility] Katie mcmahon 250 DO Work Phone: 137\S\137 Normal 136-146 [facility] Katie mcmahon 250 DO Work Phone: > 60 Normal [facility] Katie mcmahon 250 DO Work Phone: Comment on above: GFR estimated refere nce range: According to KDOQI guidelines, <60 ml/min/1.73m2 is sufficient to diagnose a patient with chronic kidney disease. 1.03\S\1.03 Normal 0.64-1.27 [facility] Katie mcmahon 250 DO Work Phone: 15\S\15 Normal 9-23 [facility] Katie Thakkar DO Work Phone: 111\S\111 above high threshold 70-100 [facility] Work Phone: Comment on above: Random Glucose Refer ence Range is dependent on time and content of last meal. Glucose of more than 200 mg/dL in a nonstressed, ambulatory subject supports the diagnosis of Diabetes Mellitus. ADA recommended reference range 44\S\44 above high threshold 10-42 [facility] Katie Thakkar DO Work Phone: 3.34\S\3.34 Normal 0.45-5.33 [facility] Work Phone: Comment on above: PERFORMED BY:[facility] [place], [place] [phone] MEDICAL DIRECTORSTEVEN NASH M.D. Radiologyon 07-30-2022 XR Chest 2 Views Normal [facility] Work Phone: Creatinine and Glomerular fi ltration rate.predicted panel (S/P/Bld)Ordered By: Marcus Recinos on 04-26-2022 Creatinine [Mass/Vol] 1.05 mg/dL 0.64-1.27 [facility] Estimated glomerular filtrat ion rate (GFR) non- AmericanOrdered By: Marcus Recinos on 04-26-2022 GFR/1.73 sq M.predicted among non-blacks MDRD (S/P/Bld) [Vol rate/Area] > 60 mL/Min [facility] No Panel InformationOrdered By: Marcus Recinos on 04-26-2022 Estimated GFR () > 60 mL/Min [facility] Comment on above: GFR estimated refere nce range: According to KDOQI guidelines, <60 ml/min/1.73m2 is sufficient to diagnose a patient with chronic kidney disease. Pharmacy Creatinine Clearance (Chem N/A [facility] No Panel Informationon 04-26 9.5\S\9.5 Normal 8.2-10.2 [facility] 250 DO Work Phone: 26.8\S\26.8 Normal 22.0-30.0 [facility] Work Phone: 101\S\101 Normal 95-114 [facility] 250 DO Work Phone: 4.9\S\4.9 Normal 3.5-5.1 [facility] 250 DO Work Phone: [phone] 138\S\138 Normal [facility] Work Phone: [phone] > 60 Normal [facility] Work Phone: Comment on above: GFR estimated refere nce range: According to KDOQI guidelines, <60 ml/min/1.73m2 is sufficient to diagnose a patient with chronic kidney disease. 1.05\S\1.05 Normal 0.64-1.27 [facility] 250 DO Work Phone: 16\S\16 Normal 9-23 [facility] Work Phone: 123\S\123 above high threshold 70-[facility] Work Phone: Comment on above: Random Glucose Refer ence Range is dependent on time and content of last meal. Glucose of more than 200 mg/dL in a nonstressed, ambulatory subject supports the diagnosis of Diabetes Mellitus. ADA recommended reference range 46\S\46 above high threshold 10-42 [facility] y 250 DO Work Phone: 4.75\S\4.75 Normal 0.45-5.33 [facility] y 250 DO Work Phone: Comment on above: PERFORMED BY:[facility] [place], [place] [phone] MEDICAL DIRECTORSTEVEN NASH M.D. Radiologyon 04-26-2022 XR Chest [address] [facility] 250 DO Work Phone: Serum or plasma aspartate am inotransferase measurement (enzymatic activity/volume)Ordered By: Marcus Recinos on 04-26-2022 AST [Catalytic activity/Vol] 46 U/L 10-42 [facility] Serum or plasma calcium tiera urement (mass/volume)Ordered By: Marcus Recinos on 04-26-2022 Calcium [Mass/Vol] 9.5 mg/dL 8.2-10.2 [facility] Serum or plasma chloride marly surement (moles/volume)Ordered By: Marcus Recinos on 04-26-2022 Chloride [Moles/Vol] 101 mmol/L 95-114 [facility] Serum or plasma glucose tiera urement (mass/volume)Ordered By: Marcus Recinos on 04-26-2022 Glucose [Mass/Vol] 123 mg/dL 70-100 [facility] Comment on above: ADA recommended refe rence range Random Glucose Reference Range is dependent on time and content of last meal. Glucose of more than 200 mg/dL in a nonstressed, ambulatory subject supports the diagnosis of Diabetes Mellitus. Serum or plasma potassium me asurement (moles/volume)Ordered By: Marcus Recinos on 04-26-2022 Potassium [Moles/Vol] 4.9 mmol/L 3.5-5.1 [facility] Serum or plasma sodium measu rement (moles/volume)Ordered By: Marcus Recinos on 04-26-2022 Sodium [Moles/Vol] 138 mmol/L 136-146 [facility] Serum or plasma total carbon dioxide measurement (moles/volume)Ordered By: Marcus Recinos on 04-26-2022 CO2 [Moles/Vol] 26.8 mmol/L 22.0-30.0 [facility] Serum or plasma urea nitroge n measurement (mass/volume)Ordered By: Marcus Recinos on 04-26-2022 Urea nitrogen [Mass/Vol] 16 mg/dL 07-27 [facility] TSH DL <= 0.005 mIU/L QnOrde red By: Marcus Recinos on 04-26-2022 TSH Qn 4.75 m[IU]/L 0.45-5.33 [facility] Office Visit (Cardiology)on 04-24-2022 Follow-up visit Diagnoses/Problems [...] Patient Instructions By signing my name below, ILeslie LPN ,Scribe, attest that this documentation has been prepared [...] progress. His blood pressure is under control. Assessment/recommendation s: 1?history of atrial flutter status post successful [...] rashes. Neurologi (more content not included)... Normal [facility] Tobacco Screening.on 022 Adult depression screening assessment No [facility] 250 DO Work Phone: Fall risk assessment a) No falls within the last year [facility] 250 DO Work Phone: Tobacco use status CPHS b) No [facility] 250 DO Work Phone: No Panel Informationon 03-27 135\S\135 below low threshold 136-146 [facility] 250 DO Work Phone: 4.7\S\4.7 Normal 3.5-5.1 [facility] 250 DO Work Phone: [phone] 99\S\99 Normal 95-114 [facility] 250 DO Work Phone: [phone] 25.4\S\25.4 Normal 22.0-30.0 [facility] 250 DO Work Phone: Comment on above: PERFORMED BY:[address] [place] [address] [place], [place] [id number] MEDICAL DIRECTORSTEVEN NASH M.D. Serum or plasma chloride marly surement (moles/volume)Ordered By: Marcus Recinos on 03-27-2022 Chloride [Moles/Vol] 99 mmol/L 95-114 [facility] Serum or plasma potassium me asurement (moles/volume)Ordered By: Marcus Recinos on 03-27-2022 Potassium [Moles/Vol] 4.7 mmol/L 3.5-5.1 [facility] Serum or plasma sodium measu rement (moles/volume)Ordered By: Marcus Recinos on 03-27-2022 Sodium [Moles/Vol] 135 mmol/L 136-146 [facility] Serum or plasma total carbon dioxide measurement (moles/volume)Ordered By: Marcus Recinos on 03-27-2022 CO2 [Moles/Vol] 25.4 mmol/L 22.0-30.0 [facility] COVID-19 SOFIAOrdered By: Lincoln Recinos on 03-23-2022 SARS-CoV+SARS-CoV-2 (COVID-19) Ag IA.rapid Ql (Resp) Negative Negative [facility] Comment on above: This is a duplicate Larisa SARS Antigen (TYSON) result to be used for statistical tracking purpose only. Laboratory - Microbiology an d Antimicrobial susceptibilityon 03-23-2022 SARS-CoV-2 (COVID-19) RNA VERONIQUE+probe Ql (Unsp spec) [facility] 250 DO Work Phone: No Panel InformationOrdered By: Marcus Recinos on 03-23-2022 SARS Antigen (LFIA) [facility] No Panel Informationon 03-23 Negative Normal Negative [facility] 250 DO Work Phone: Comment on above: This is a duplicate Larisa SARS Antigen (TYSON) result to be used for statistical tracking purpose only.PERFORMED BY:[facility] [place], [place] [id number] MEDICAL DIRECTORSTEVEN NASH M.D. Covid-19 PCR ([facility])on 03-04 SARS-CoV-2 (COVID-19) RNA VERONIQUE+probe Ql (Unsp spec) Not detected Normal NOT DETECTED [facility] Comment on above: Result Comment: This test is not yet approved or cleared by the [place] FDA. When there are no FDA-approved or cleared tests available, and other criteria are met, FDA can make tests available under an emergency access mechanism called an Emergency Use Authorization (EUA). The EUA for this test is supported by the [place] of Health and Human Service's (HHS's) declaration [...] consistent with SARS-CoV-2. Performed By: #### [facility] #### [facility] [address] [place] [address] Dr. Igor Hayes INFLUENZA A AND B AGon 03-15 INFLUANEGH SEE BELOW Normal [facility] Comment on above: Result Comment: Nega tive for Flu A protein angiten. Infection due to Flu A cannot be ruled out. Flu A angiten in the sample may be below the detection limit of the test. Performed By: #### O BSCRN #### [facility] [address] [place] [address] Dr. Igor Hayes [facility] SEE BELOW Normal [facility] Comment on above: Result Comment: Nega tive for Flu B protein antigen. Infection due to Flu B cannot be ruled out. Flu B antigen in the sample may be below the detection limit of the test. Performed By: #### O BSCRN #### [facility] [address] [place] [address] Dr. Igor Hayes INFLUENZA A AG Negative Normal NEGATIVE SEE COMMENT [facility] Comment on above: Performed By: #### O BSCRN #### [facility] [address] [place] [address] Dr. Igor Hayes INFLUENZA B AG Negative Normal NEGATIVE SEE COMMENT [facility] Comment on above: Performed By: #### O BSCRN #### [facility] [address] [place] [address] Dr. Igor Hayes INTERNAL CONTROLS Within Normal Limits Normal Wi thin Normal Limits [facility] Comment on above: Performed By: #### O BSCRN #### [facility] [address] [place] [address] Dr. Igor Hayes Office Visit (Cardiology)on 02-13-2022 [...] Weight Tips; Status:Complete - Retrospective Authorization; Done: [id number] Hyperlipidemia Renew: Simvastatin 20 MG Oral Tablet; TAKE 1 TABLET DAILY SocHx: Former smoker Tobacco Use Screening; Status:Complete; Done: [id number] Unspecified atrial flutter Start: Amiodarone HCl - 200 MG Oral Tablet; Take 1 tablet twice daily IO EKG Electrocardiogram- 12 Lead; Status:Complete; Done: [id number] Unlinked Stop: Digoxin 125 MCG Oral Tablet Stop: Enalapril Maleate 5 MG Oral Tablet Stop: Toprol XL 50 MG Oral Tablet Extended Release 24 Hour (Metoprolol Succinate ER) Patient Instructions By signing my name below, IYaquelni LPN, Scribe, attest that this documentation has [...] mild obesity his physical examination was unremarkable. Assessment/recommendation s: 1?recent onset atrial flutter with slow rapid [...] Systems Constitutio (more content not included)... Normal [facility] Tobacco Screening.on 022 Adult depression screening assessment No [facility] 250 DO Work Phone: Fall risk assessment a) No falls within the last year [facility] 250 DO Work Phone: Tobacco use status CPHS b) No [facility] 250 DO Work Phone: Glucose Glucometer (BldC) [M ass/Vol]Ordered By: Jin Berkowitz on 01-23-2022 Glucose [Mass/Vol] 155 mg/dL [facility] Comment on above: Random Glucose Refer ence Range is dependent on time and content of last meal. Glucose of more than 200 mg/dL in a nonstressed, ambulatory subject supports the diagnosis of Diabetes Mellitus. Activated partial thrombopla stin time (aPTT) in platelet poor plasma by coagulation aOrdered By: Ama Morrison on 01-22-2022 aPTT Coag (PPP) [Time] 71.1 s 25.1-36.5 [facility] Creatinine and Glomerular fi ltration rate.predicted panel (S/P/Bld)Ordered By: Ama Morrison on 01-22-2022 Creatinine [Mass/Vol] 1.04 mg/dL 0.64-1.27 [facility] Estimated glomerular filtrat ion rate (GFR) non- AmericanOrdered By: Ama Morrison on 01-22-2022 GFR/1.73 sq M.predicted among non-blacks MDRD (S/P/Bld) [Vol rate/Area] > 60 mL/Min [facility] No Panel InformationOrdered By: Jin Berkowitz on 01-22-2022 Bedside Glucose Comment Glu2: cleaned meter [facility] No Panel InformationOrdered By: Ama Morrison on 01-22-2022 Estimated GFR () > 60 mL/Min [facility] Comment on above: GFR estimated refere nce range: According to KDOQI guidelines, <60 ml/min/1.73m2 is sufficient to diagnose a patient with chronic kidney disease. Pharmacy Creatinine Clearance (Chem 82.75 [facility] Serum or plasma calcium tiera urement (mass/volume)Ordered By: Ama Morrison on 01-22-2022 Calcium [Mass/Vol] 9.4 mg/dL 8.2-10.2 [facility] Serum or plasma chloride marly surement (moles/volume)Ordered By: Ama Morrison on 01-22-2022 Chloride [Moles/Vol] 99 mmol/L 95-114 [facility] Serum or plasma glucose tiera urement (mass/volume)Ordered By: Ama Morrison on 01-22-2022 Glucose [Mass/Vol] 117 mg/dL 70-100 [facility] Comment on above: ADA recommended refe rence [...] on 01-22-2022 Potassium [Moles/Vol] 4.6 mmol/L 3.5-5.1 [facility] Serum or plasma sodium measu rement (moles/volume)Ordered By: Ama Morrison on 01-22-2022 Sodium [Moles/Vol] 139 mmol/L 136-146 [facility] Serum or plasma total carbon dioxide measurement (moles/volume)Ordered By: Ama Morrison on 01-22-2022 CO2 [Moles/Vol] 29.5 mmol/L 22.0-30.0 [facility] Serum or plasma urea nitroge n measurement (mass/volume)Ordered By: Ama Morrison on 01-22-2022 Urea nitrogen [Mass/Vol] 17 mg/dL 9-23 [facility] Basophils Auto (Bld) [#/Vol] Ordered By: Pola Anders on 01-21-2022 Basophils (Bld) [#/Vol] 0.1 10*3/uL 0.0-0.2 [facility] Basophils/100 WBC Auto (Bld) Ordered By: Pola Anders on 01-21-2022 Basophils/100 WBC (Bld) 1.2 % [facility] Blood hemoglobin measurement (mass/volume)Ordered By: Pola Anders on 01-21-2022 Hemoglobin (Bld) [Mass/Vol] 15.9 g/dL 13.0-17.0 [facility] Blood leukocytes automated c ount (number/volume)Ordered By: Pola Anders on 01-21-2022 WBC (Bld) [#/Vol] 4.9 10*3/uL 4.5-11.0 [facility] Eosinophils Auto (Bld) [#/Vo l]Ordered By: Pola Anders on 01-21-2022 Eosinophils (Bld) [#/Vol] 0.2 10*3/uL 0.0-0.45 [facility] Eosinophils/100 WBC Auto (Bl d)Ordered By: Pola Anders on 01-21-2022 Eosinophils/100 WBC (Bld) 3.1 % [facility] Erythrocyte distribution wid th Auto (RBC) [Ratio]Ordered By: Pola Anders on 01-21-2022 Erythrocyte distribution width (RBC) [Ratio] 13.4 % 12.0-14.8 [facility] Hematocrit Auto (Bld) [Volum e fraction]Ordered By: Pola Anders on 01-21-2022 Hematocrit (Bld) [Volume fraction] 46.7 % 38.8-50.0 [facility] Laboratory - Hematology and Cell countsOrdered By: Pola Anders on 01-21-2022 Nucleated RBC/100 WBC (Bld) [Ratio] 0.2 % 0-0.5 [facility] Lymphocytes Auto (Bld) [#/Vo l]Ordered By: Pola Anders on 01-21-2022 Lymphocytes (Bld) [#/Vol] 1.3 10*3/uL 1.00-4.8 [facility] Lymphocytes/100 WBC Auto (Bl d)Ordered By: Pola Anders on 01-21-2022 Lymphocytes/100 WBC (Bld) 26.4 % [facility] MCH Auto (RBC) [Entitic mass ]Ordered By: Pola Anders on 01-21-2022 MCH (RBC) [Entitic mass] 30.8 pg 27.5-35.2 [facility] MCHC Auto (RBC) [Mass/Vol]Or dered By: Pola Martita on 01-21-2022 MCHC (RBC) [Mass/Vol] 34.2 g/dL 32.5-35.6 [facility] MCV Auto (RBC) [Entitic vol] Ordered By: Pola Martita on 01-21-2022 MCV (RBC) [Entitic vol] 90.2 fL 83.5-101 [facility] Monocytes Auto (Bld) [#/Vol] Ordered By: Pola Martita on 01-21-2022 Monocytes (Bld) [#/Vol] 0.6 10*3/uL 0.0-0.8 [facility] Monocytes/100 WBC Auto (Bld) Ordered By: Pola Martita on 01-21-2022 Monocytes/100 WBC (Bld) 13.0 % [facility] Neutrophils Auto (Bld) [#/Vo l]Ordered By: Pola Martita on 01-21-2022 Neutrophils (Bld) [#/Vol] 2.8 10*3/uL 1.8-7.7 [facility] Neutrophils/100 WBC Auto (Bl d)Ordered By: Pola Martita on 01-21-2022 Neutrophils/100 WBC (Bld) 56.3 % [facility] Platelet mean volume Auto (B ld) [Entitic vol]Ordered By: Pola Martita on 01-21-2022 Platelet mean volume (Bld) [Entitic vol] 9.2 fL 6.6-10.1 [facility] Platelets Auto (Bld) [#/Vol] Ordered By: Pola Martita on 01-21-2022 Platelets (Bld) [#/Vol] 176 10*3/uL 150-450 [facility] RBC Auto (Bld) [#/Vol]Ordere d By: Pola Martita on 01-21-2022 RBC (Bld) [#/Vol] 5.18 10*6/uL 3.90-5.60 [facility] Cholesterol [Mass/volume] in Serum or PlasmaOrdered By: Pola Martita on 01-20-2022 Cholesterol [Mass/Vol] 155 mg/dL 140-200 [facility] Comment on above: Chol less than 200 m g/dl low riskChol 201-239 mg/dl borderline riskChol 240 mg/dl and greater high risk Chol less than 200 m g/dl low risk Chol 201-239 mg/dl borderline risk Chol 240 mg/dl and greater high risk Cholesterol in LDL Calc [Mas s/Vol]Ordered By: Pola Anders on 01-20-2022 Cholesterol in LDL [Mass/Vol] 82 mg/dL 0-100 [facility] Comment on above: LDL ATP III CLASSIFI [...] 01-20-2022 Cholesterol in VLDL [Mass/Vol] 31 mg/dL [facility] Glucose mean value [Mass/vol ume] in Blood Estimated from glycated hemoglobinOrdered By: Pola Anders on 01-20-2022 Average glucose Estimated from glycated hemoglobin (Bld) [Mass/Vol] 140 mg/dL [facility] Hemoglobin A1c percentageOrd ered By: Pola Anders on 01-20-2022 HbA1c (Bld) [Mass fraction] 6.5 % 4.3-5.6 [facility] Comment on above: Increased risk for d iabetes: 5.7 - 6.4diabetes: >6.4glycemic control for adults with diabetes: <7.0 Increased risk for d iabetes: 5.7 - 6.4 diabetes: >6.4 glycemic control for adults with diabetes: <7.0 Laboratory - CoagulationOrde red By: Pola Anders on 01-20-2022 PT Coag (PPP) [Time] 15.6 s 9.0-12.9 [facility] Platelet poor plasma interna tional normalized ratio (INR) by coagulation assay (relatOrdered By: Pola Anders on 03-19-2022 INR Coag (PPP) [Relative time] 1.4 {INR} [facility] Comment on above: INR Therapeutic Rang e [...] Cholesterol in HDL [Mass/Vol] 41 mg/dL 29-71 [facility] Comment on above: HDL CHOL ATP-III CLA SSIFICATION Cardiovascular RiskHDL > or equal to 60 mg/dL LOWHDL < 40 mg/dL HIGH HDL CHOL ATP-III CLA SSIFICATION Cardiovascular Risk HDL > or equal to 60 mg/dL LOW HDL < 40 mg/dL HIGH Serum or plasma total choles terol/high density lipoprotein (HDL) cholesterol mass ratOrdered By: Pola Anders on 01-20-2022 Cholesterol.total/Chol esterol in HDL [Mass ratio] 3.8 {ratio} [facility] Triglyceride [Mass/volume] i n Serum or PlasmaOrdered By: Pola Anders on 01-20-2022 Triglyceride [Mass/Vol] 158 mg/dL 35-149 [facility] Comment on above: TRIG ATP III CLASSIF [...] High sensitivity method [Mass/Vol] 7 pg/mL 0-20 [facility] Vital Signs Date Time Vital Sign Value Performing Clinician Facility 04-15-2025 11:09-0400 Body height 182.9 cm Joe García DPM Work Phone: [facility] 04-15-2025 11:09-0400 Body mass index (BMI) [Ratio] 31.19 kg/m2 Joe García DPM Work Phone: [facility] 04-15-2025 11:09-0400 Body weight 104.33 kg Joe García DPM Work Phone: [facility] 04-15-2025 11:09-0400 Respiratory rate 18 /min Joe García DPM Work Phone: [facility] 03-29-2025 20:47-0400 Body height 182.88 cm Tirso Frausto MD Work Phone: [facility] 03-29-2025 20:47-0400 Body temperature 97.9 [degF] Tirso Frausto MD Work Phone: [facility] 03-29-2025 20:47-0400 Body weight 103 kg Tirso Frausto MD Work Phone: [facility] 03-29-2025 20:47-0400 Diastolic blood pressure 69 mm[Hg] Tirso Frausto MD Work Phone: [facility] 03-29-2025 20:47-0400 Heart rate 60 /min Tirso Frausto MD Work Phone: [facility] 03-29-2025 20:47-0400 Respiratory rate 18 /min Tirso Frausto MD Work Phone: [facility] 03-29-2025 20:47-0400 SaO2% (BldA) [Mass fraction] 96 % Tirso Frausto MD Work Phone: [facility] 03-29-2025 20:47-0400 Systolic blood pressure 132 mm[Hg] Tirso Frausto MD Work Phone: [facility] 02-04-2025 10:08-0400 Body height 182.9 cm Joe García DPM Work Phone: [facility] 02-04-2025 10:08-0400 Body mass index (BMI) [Ratio] 31.19 kg/m2 Joe García DPM Work Phone: [facility] 02-04-2025 10:08-0400 Body weight 104.33 kg Joe García DPM Work Phone: [facility] 02-04-2025 10:08-0400 Respiratory rate 16 /min Joe García DPM Work Phone: [facility] 01-06-2025 13:22-0500 Body height 182.9 cm Marcus Recinos MD Work Phone: [facility] 01-06-2025 13:22-0500 Body mass index (BMI) [Ratio] 30.38 kg/m2 Marcus Recinos MD Work Phone: [facility] [facility] 01-06-2025 13:22-0500 Body weight 101.61 kg Marcus Recinos MD Work Phone: [facility] 01-06-2025 13:22-0500 Diastolic blood pressure 60 mm[Hg] Marcus Recinos MD Work Phone: [facility] 01-06-2025 13:22-0500 Heart rate 55 /min Marcus Recinos MD Work Phone: [facility] 01-06-2025 13:22-0500 Systolic blood pressure 120 mm[Hg] Marcus Recinos MD Work Phone: [facility] 11-26-2024 10:35-0500 Body height 182.9 cm Joe García DPM Work Phone: [facility] 11-26-2024 10:35-0500 Body mass index (BMI) [Ratio] 31.19 kg/m2 Joe García DPM Work Phone: [facility] 11-26-2024 10:35-0500 Body weight 104.33 kg Joe García DPM Work Phone: [facility] 11-26-2024 10:35-0500 Respiratory rate 18 /min Joe Festus DPM Work Phone: [facility] 12-04-2023 09:03-0500 Body height 182.9 cm Marcus Recinos MD Work Phone: [facility] 12-04-2023 09:03-0500 Body mass index (BMI) [Ratio] 31.46 kg/m2 Marcus Recinos MD Work Phone: [facility] 12-04-2023 09:03-0500 Body weight 105.23 kg Marcus Recinos MD Work Phone: [facility] 12-04-2023 09:03-0500 Diastolic blood pressure 72 mm[Hg] Marcus Recinos MD Work Phone: [facility] 12-04-2023 09:03-0500 Heart rate 61 /min Marcus Recinos MD Work Phone: [facility] 12-04-2023 09:03-0500 Systolic blood pressure 118 mm[Hg] Marcus Recinos MD Work Phone: [facility] 02-08-2023 10:42-0400 Body height 182.88 cm Tirso Gamezy Work Phone: [facility] [address] DO Work Phone: 02-08-2023 10:42-0400 Body mass index (BMI) [Ratio] 30.65 kg/m2 Tirso M Hoy Work Phone: [facility] DO Work Phone: 02-08-2023 10:42-0400 Body surface area Derived from formula 2.24 m2 Tirso Miguel Hoy Work Phone: [facility] [address] DO Work Phone: 02-08-2023 10:42-0400 Body weight 102.51 kg Tirso Miguel Hoy Work Phone: [facility] [address] DO Work Phone: 02-08-2023 10:42-0400 Diastolic blood pressure 83 mm[Hg] Tirso M Hoy Work Phone: [facility] [address] DO Work Phone: 02-08-2023 10:42-0400 Heart rate 54 /min Tirso M Hoy Work Phone: [facility] DO Work Phone: 02-08-2023 10:42-0400 Systolic blood pressure 128 mm[Hg] Tirso M Hoy Work Phone: [facility] [address] DO Work Phone: 11-08-2022 11:01-0500 Body height 182.88 cm Tirso M Hoy Work Phone: [facility] [address] DO Work Phone: 11-08-2022 11:01-0500 Body mass index (BMI) [Ratio] 30.92 kg/m2 Tirso M Hoy Work Phone: [facility] [address] DO Work Phone: 11-08-2022 11:01-0500 Body surface area Derived from formula 2.25 m2 Tirso M Hoy Work Phone: [facility] [address] DO Work Phone: 11-08-2022 11:01-0500 Body weight 103.42 kg Tirso M Hoy Work Phone: [facility] [address] DO Work Phone: 11-08-2022 11:01-0500 Diastolic blood pressure 72 mm[Hg] Tirso M Hoy Work Phone: [facility] [address] DO Work Phone: 11-08-2022 11:01-0500 Heart rate 49 /min Tirso Miguel Hoy Work Phone: [facility] [address] DO Work Phone: 11-08-2022 11:01-0500 Systolic blood pressure 110 mm[Hg] Tirso M Hoy Work Phone: [facility] [address] DO Work Phone: 04-24-2022 14:21-0400 Body height 182.88 cm Tirso Miguel Hoy Work Phone: [facility] [address] DO Work Phone: 04-24-2022 14:21-0400 Body mass index (BMI) [Ratio] 30.38 kg/m2 Tirso Miguel Hoy Work Phone: [facility] [address] DO Work Phone: 04-24-2022 14:21-0400 Body surface area Derived from formula 2.24 m2 Tirso Miguel Hoy Work Phone: [facility] [address] DO Work Phone: 04-24-2022 14:21-0400 Body weight 101.61 kg Tirso Miguel Hoy Work Phone: [facility] [address] DO Work Phone: 04-24-2022 14:21-0400 Diastolic blood pressure 80 mm[Hg] Tirso M Hoy Work Phone: [facility] [address] DO Work Phone: 04-24-2022 14:21-0400 Heart rate 51 /min Tirso Rivera Hoy Work Phone: [facility] [address] DO Work Phone: 04-24-2022 14:21-0400 Systolic blood pressure 118 mm[Hg] Tirso Rivera Hoy Work Phone: [facility] [address] DO Work Phone: 04-17-2022 12:00-0400 Body temperature 97.34 [degF] Sarath Menendezer [facility] 04-17-2022 12:00-0400 Diastolic blood pressure 68 mm[Hg] Sarath Menendezer [facility] 04-17-2022 12:00-0400 Heart rate 50 /min Sarath Hines [facility] 04-17-2022 12:00-0400 SaO2% (BldA) [Mass fraction] 96 % Sarath Hines [facility] 04-17-2022 12:00-0400 Systolic blood pressure 100 mm[Hg] Sarath Crumhler [facility] 04-17-2022 11:36-0400 Blood Pressure Location Sarath Hines [facility] 04-17-2022 11:36-0400 BP/Pulse Patient Position Sarath Menendezer [facility] 04-17-2022 11:36-0400 Diastolic blood pressure 75 mm[Hg] Sarath Crumhler [facility] 04-17-2022 11:36-0400 Heart rate 47 /min Sarath Hines [facility] 04-17-2022 11:36-0400 Respiratory rate 18 /min Sarath Zahler [facility] 04-17-2022 11:36-0400 SaO2% (BldA) [Mass fraction] 94 % Sarath Crumhler [facility] 04-17-2022 11:36-0400 Systolic blood pressure 109 mm[Hg] Sarath Crumhler [facility] 04-17-2022 11:20-0400 Blood Pressure Location Sarath Hines [facility] 04-17-2022 11:20-0400 BP/Pulse Patient Position Sarath Menendezer [facility] 04-17-2022 11:20-0400 Diastolic blood pressure 82 mm[Hg] Sarath Crumhler [facility] 04-17-2022 11:20-0400 Heart rate 47 /min Sarath Menendezer [facility] 04-17-2022 11:20-0400 Respiratory rate 18 /min Sarath Menendezer [facility] 04-17-2022 11:20-0400 SaO2% (BldA) [Mass fraction] 94 % Sarath Menendezer [facility] 04-17-2022 11:20-0400 Systolic blood pressure 110 mm[Hg] Sarath Crumhler [facility] 04-17-2022 09:32-0400 Blood Pressure Location Sarath Menendezer [facility] 04-17-2022 09:32-0400 BP/Pulse Patient Position Sarath Menendezer [facility] 04-17-2022 09:32-0400 Mean blood pressure 76 mm[Hg] Sarath Hines [facility] 04-17-2022 09:31-0400 Body temperature 98.6 [degF] Sarath Hines [facility] 04-17-2022 09:31-0400 Mean blood pressure 79 mm[Hg] Sarath Hines [facility] 04-17-2022 09:31-0400 Respiratory rate 20 /min Sarath Hines [facility] 03-27-2022 09:00-0400 Inhaled oxygen flow rate 2 L/min Tirso Frausto Work Phone: [facility] 02-27-2022 12:16-0400 Body height 182.88 cm Tirso Rivera Hoy Work Phone: [facility] [address] DO Work Phone: 02-27-2022 12:16-0400 Body mass index (BMI) [Ratio] 30.65 kg/m2 Tirso M Hoy Work Phone: [facility] DO Work Phone: 02-27-2022 12:16-0400 Body surface area Derived from formula 2.24 m2 Tirso Miguel Hoy Work Phone: [facility] [address] DO Work Phone: 02-27-2022 12:16-0400 Body weight 102.51 kg Tirso M Hoy Work Phone: [facility] [address] DO Work Phone: 02-27-2022 12:16-0400 Diastolic blood pressure 80 mm[Hg] Tirso M Hoy Work Phone: [facility] [address] DO Work Phone: 02-27-2022 12:16-0400 Heart rate 79 /min Tirso Rivera Hoy Work Phone: [facility] [address] DO Work Phone: 02-27-2022 12:16-0400 Systolic blood pressure 110 mm[Hg] Tirso Rivera Hoy Work Phone: [facility] [address] DO Work Phone: 02-13-2022 13:01-0400 Body height 182.88 cm Tirso Rivera Hoy Work Phone: [facility] [address] DO Work Phone: 02-13-2022 13:01-0400 Body mass index (BMI) [Ratio] 30.11 kg/m2 Tirso Miguel Hoy Work Phone: [facility] [address] DO Work Phone: 02-13-2022 13:01-0400 Body surface area Derived from formula 2.23 m2 Tirso Miguel Hoy Work Phone: [facility] [address] DO Work Phone: 02-13-2022 13:01-0400 Body weight 100.7 kg Tirso Rivera Hoy Work Phone: [facility] [address] DO Work Phone: 02-13-2022 13:01-0400 Diastolic blood pressure 72 mm[Hg] Tirso Rivera Hoy Work Phone: [facility] [address] DO Work Phone: 02-13-2022 13:01-0400 Heart rate 104 /min Tirso Miguel Hoy Work Phone: [facility] [address] DO Work Phone: 02-13-2022 13:01-0400 Systolic blood pressure 104 mm[Hg] Tirso Miguel Hoy Work Phone: [facility] [address] DO Work Phone: 01-23-2022 08:00-0400 Body temperature 97.8 [degF] MD Tirso Frausto Work Phone: [facility] 01-23-2022 08:00-0400 Diastolic blood pressure 64 mm[Hg] MD Tirso Frausto Work Phone: [facility] 01-23-2022 08:00-0400 Heart rate 73 /min MD Tirso Frausto Work Phone: [facility] 01-23-2022 08:00-0400 Respiratory rate 18 /min MD Tirso Frausto Work Phone: [facility] 01-23-2022 08:00-0400 SaO2% (BldA) [Mass fraction] 93 % MD Tirso Frausto Work Phone: [facility] 01-23-2022 08:00-0400 Systolic blood pressure 100 mm[Hg] MD Tirso Frausto Work Phone: [facility] 01-23-2022 05:57-0400 Body weight 93.1 kg MD Tirso Frausto Work Phone: [facility] 01-22-2022 08:40-0400 Inhaled oxygen flow rate 2 L/min MD Tirso Frausto Work Phone: [facility] 01-20-2022 16:12-0400 55 1 Tirso Frausto Work Phone: [facility] [address] DO Work Phone: Comment on above: [id number] 01-20-2022 02:09-0400 Body height 182.88 cm MD Tirso Frausto Work Phone: [facility] 01-20-2022 02:09-0400 Body mass index (BMI) [Ratio] 29.9 kg/m2 MD Tirso Frausto Work Phone: [facility] Encounters Encounter Date Encounter Type Care Provider Facility Start: 04-15-2025 End: 04-15-2025 Wendy García DPM Work Phone: [facility] Start: 04-15-2025 End: 04-15-2025 Bamboo flowsheet Joe García DPM Work Phone: [facility] Start: 04-15-2025 End: 04-15-2025 Patient encounter procedure Joe García DPM Work Phone: [facility] Comment on above: Diabetes mellitus du e to underlying condition with diabetic polyneuropathy, unspecified whether half-way insulin use (HCC) (Primary Dx); Pain due to onychomycosis of toenails of both feet Start: 04-15-2025 End: 04-15-2025 ambulatory JOE GARCÍA Not Available Start: 03-29-2025 End: 03-29-2025 Emergency department patient visit Tirso Frausto MD Work Phone: [facility] Work Phone: Start: 03-18-2025 End: 03-18-2025 Subsequent hospital visit by physician Jimena Shell Echo/Vasc Room 2 [facility] Comment on above: Essential hypertensi on; Atypical atrial flutter; Mixed hyperlipidemia; Former smoker Start: 03-18-2025 End: 03-18-2025 ambulatory [facility] Start: 02-04-2025 End: 02-04-2025 Bamboo flowsheet Joe García DPM Work Phone: [facility] Start: 02-04-2025 End: 02-04-2025 Bamboo flowsheet Joe García DPM Work Phone: [facility] Start: 02-04-2025 End: 02-04-2025 Patient encounter procedure Joe García DPM Work Phone: [facility] Comment on above: Diabetes mellitus du e to underlying condition with diabetic polyneuropathy, 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) (Primary Dx); Pain due to onychomycosis of toenails of both feet Start: 02-04-2025 End: 02-04-2025 ambulatory JOE GARCÍA Not Available Start: 01-06-2025 End: 01-06-2025 Office outpatient visit 25 minutes Marcus Recinos MD Work Phone: [facility] Comment on above: Atypical atrial flut ter (Multi) (Primary Dx); Essential hypertension; High risk medication use; Mixed hyperlipidemia; Chronic obstructive pulmonary disease, unspecified COPD type (Multi); BMI 30.0-30.9,adult; Former smoker; Obesity, Class I, BMI 30-34.9; Hypothyroidism, unspecified type Start: 01-06-2025 End: 01-06-2025 ambulatory [facility] Start: 11-26-2024 End: 11-26-2024 Bamboo flowsheet Joe García DPM Work Phone: [facility] Start: 11-26-2024 End: 11-26-2024 Bamboo flowsheet Joe García DPM Work Phone: [facility] Start: 11-26-2024 End: 11-26-2024 Office outpatient new 30 minutes Joe García DPM Work Phone: [facility] Comment on above: Contusion of right f oot, initial encounter (Primary Dx); Pain due to onychomycosis of toenails of both feet; Diabetes mellitus due to underlying condition with diabetic polyneuropathy, unspecified whether half-way insulin use ([facility]) Start: 11-26-2024 End: 11-26-2024 ambulatory JOE GARCÍA Not Available Start: 06-03-2024 End: 06-03-2024 ambulatory [facility] Start: 12-04-2023 End: 12-04-2023 Office outpatient visit 25 minutes Marcus Recinos MD Work Phone: [facility] Comment on above: Atrial flutter, unsp ecified type (CMS/HCC) (Primary Dx); Benign essential hypertension; High risk medication use; Hyperlipidemia, unspecified hyperlipidemia type; Pulmonary emphysema, unspecified emphysema type (CMS/HCC); Coronary artery disease involving [place] coronary artery of [place] heart without angina pectoris; Obesity, Class I, BMI 30-34.9 Start: 05-06-2023 Patient encounter procedure Tirso Frausto Work Phone: [facility] DO Work Phone: Start: 03-08-2023 End: 03-09-[address] TIRSO FRAUSTO . Facility:[facility]1 Start: 02-08-2023 Patient encounter procedure Tirso Frausto Work Phone: [facility] [address] DO Work Phone: Start: 02-08-[address] Darwin Perdomo Facility: Start: 02-05-2023 AUDIT Tirso Frausto Work Phone: [facility] [address] DO Work Phone: Start: 02-01-2023 End: 02-01-2023 ambulatory NOELLE VALERA Facility:[facility]1 Start: 01-22-2023 End: 01-22-2023 ambulatory Jina Rios Other [facility] Other Start: 01-22-2023 Telephone encounter Jina Broussard [facility] Start: 01-21-2023 Telephone encounter Tirso Miguel Lisbet Work Phone: [facility] [address] DO Work Phone: Start: 01-10-2023 End: 01-11-[address] MARCUS RECINOS Facility:[facility]1 Start: 01-01-2023 ([facility] R A/c) [facility] Heena soliz A/C Olga Phipps Count Includes [facility] Start: 01-01-2023 End: 01-01-2023 ambulatory Jina Rios Other [facility] Other Start: 01-01-2023 Telephone encounter Jina Brouss[facility] Start: 12-20-2022 Patient encounter procedure Tirso Frausto Work Phone: [facility] [address] DO Work Phone: Start: 12-10-2022 ([facility] R A/c) [facility] Re peat A/C Victoriameenu Mujica [facility] Start: 12-10-2022 End: 12-10-2022 ambulatory Victoria Richardson Other [facility] Other Start: 11-26-2022 ([facility] R A/c) [facility] Re peat A/C Victoria Guanako [facility] Start: 11-26-2022 End: 11-26-2022 ambulatory Victoria Guanako Other [facility] Other Start: 11-15-2022 ([facility] R A/c) [facility] Re peat A/C Carlos A Salazar [facility] Start: 11-15-2022 End: 11-15-2022 ambulatory Carlos A Salazar Other [facility] Other Start: 11-14-2022 End: 11-15-[address] MARCUS RECINOS Facility:[facility]1 Start: 11-08-2022 Office outpatient vi sit 25 minutes Tirso Frausto Work Phone: [facility] [address] DO Work Phone: Start: 11-08-2022 ambulatory Marcus Recinos Facility : Start: 11-02-2022 End: 11-03-[address] TIRSO FRAUSTO . Facility:[facility]1 Start: 11-01-2022 End: 11-01-2022 ambulatory Jina Rios Other [facility] Other Start: 11-01-2022 Telephone encounter Jina Rios [facility] Start: 10-23-2022 End: 10-24-[address] MARCUS RECINOS Facility:[facility]1 Start: 10-22-2022 End: 10-23-2022 ambulatory NONE LISTED REQUEST Facility:[facility]1 Start: 10-15-2022 Telephone encounter Tirso Gamezsalome Work Phone: [facility] [address] DO Work Phone: Start: 10-10-2022 Patient encounter procedure Tirso Gamezsalome Work Phone: [facility] [address] DO Work Phone: Start: 10-09-2022 End: 10-10-[address] TIRSO FRAUSTO . Facility:[facility]1 Start: 08-10-2022 Chart Update Tirso Gamezy Work Phone: [facility] [address] DO Work Phone: Start: 07-06-2022 Patient encounter procedure Tirso Gamezsalome Work Phone: [facility] [address] DO Work Phone: Start: 05-15-2022 Rx Renewal Tirso M Hoy Work Phone: [facility] [address] DO Work Phone: Start: 04-26-2022 Chart Update Tirsoloreta Gamezy Work Phone: [facility] [address] DO Work Phone: Start: 04-26-2022 End: 04-26-2022 Patient encounter procedure MD iTrso Frausto Work Phone: [facility] Start: 04-24-2022 Office outpatient vi sit 25 minutes Tirso Miguel Hoy Work Phone: [facility] [address] DO Work Phone: Start: 04-24-2022 ambulatory Marcus Recinos Facility : Start: 04-19-2022 Rx Renewal Tirso M Hoy Work Phone: [facility] 600 DO Work Phone: Start: 04-17-2022 End: 04-17-2022 Admission to same day surgery center Sarath Hines [facility] Start: 03-28-2022 Chart Update Tirso Frausto Work Phone: [facility] [address] DO Work Phone: Start: 03-27-[address] iTrso Frausto Facility:[id number] Start: 03-27-2022 [facility] Provider: Marcus Recinos, Status: Pen, Time: 9:00 AM Tirso Frausto Work Phone: [facility] [address] DO Work Phone: Start: 03-27-2022 End: 03-27-2022 Admission to same day surgery center MD Tirso Frausto Work Phone: [facility] Start: 03-26-2022 Chart Update Tirso Frausto Work Phone: [facility] [address] DO Work Phone: Start: 03-23-2022 End: 03-23-2022 Patient encounter procedure MD Tirso Frausto Work Phone: [facility] Start: 03-15-2022 End: 03-15-[address] TIRSO FRAUSTO . Facility:[facility]1 Start: 03-08-2022 Patient encounter procedure Tirso Frausto Work Phone: [facility] [address] DO Work Phone: Start: 03-01-2022 Telephone encounter Tirso Frausto Work Phone: [facility] [address] DO Work Phone: Start: 02-27-2022 ambulatory Marcus Recinos Facility : Start: 02-27-2022 Patient encounter procedure Tirso Frausto Work Phone: [facility] [address] DO Work Phone: Start: 02-13-2022 Office outpatient vi sit 25 minutes Tirso Frausto Work Phone: [facility] [address] DO Work Phone: Start: 02-13-2022 ambulatory Marcus Recinos Facility : Start: 01-25-2022 End: 01-25-2022 Patient encounter procedure MD Tirso Frausto Work Phone: [facility] [address] Start: 01-20-2022 End: 01-23-2022 Evaluation and management of inpatient MD Tirso Frausto Work Phone: [facility] [place] [facility] Procedures Date Procedure Procedure Detail Performing Clinician Start: 03-18-2025 Us abdominal aorta r eal time screen study aaa Marcus Recinos MD Work Phone: Start: 01-06-2025 Ecg routine ecg w/le ast 12 lds w/i&r Marcus Recinos MD Work Phone: Start: 12-04-2023 Ecg routine ecg w/le ast 12 lds w/i&r Marcus Recinos MD Work Phone: Start: 10-09-[address] ABHIJIT WONG REQUEST Comment on above: Performed By: #### O BSCRN #### [facility] [address] [place] [address] Dr. Igor Hayes Start: 04-26-2022 Plain chest [...] oy Work Phone: Hernia repair Tirso M Hoy Work Phone: Primary repair of um bilical hernia Sarath Hines Repair of ventral hernia Pablito Hines Plan of Treatment Date Care Activity Detail Author Start: 04-12-2031 Screening for malignant neoplasm of colon [facility] Start: 12-09-2025 End: 01-06-2026 Complete Pulmonary Function Test (Spirometry/DLCO/Lung Volumes) Complete Pulmonary Function Test (Spirometry/DLCO/Lung Volumes) PFT Routine Atypical atrial flutter (Multi) High risk medication use Expected: 12/09/2025 (Approximate), Expires: 01/06/2026 [facility] Work Phone: Comment on above: Expected: 12/09/2025 (Approximate), Expi res: 01/06/2026 Start: 12-09-2025 End: 01-06-2026 XR Chest 2 Views XR chest 2 views Imaging Routine Atypical atrial flutter (Multi) High risk medication use Expected: 12/09/2025 (Approximate), Expires: 01/06/2026 [facility] Work Phone: Comment on above: Expected: 12/09/2025 (Approximate), Expi res: 01/06/2026 Start: 08-25-2025 End: 08-25-2025 Patient encounter procedure 08/25/2025 11:10 AM EDT Office Visit [facility] [address] [facility] [address] [place] [address] Marcus Recinos MD [address] [place] [address] [facility] Start: 07-09-2025 End: 01-06-2026 Aspartate aminotransferase [Enzymatic activity/volume] in Serum or Plasma by With P-5'-P Aspartate Aminotransferase Lab Routine Atypical atrial flutter (Multi) High risk medication use Expected: 07/09/2025 (Approximate), Expires: 01/06/2026 [facility] Service Area Work Phone: Comment on above: Expected: 07/09/2025 (Approximate), Expi res: 01/06/2026 Start: 07-09-2025 End: 01-06-2026 Basic metabolic 2000 panel - Serum or Plasma Basic Metabolic Panel Lab Routine Atypical atrial flutter (Multi) High risk medication use Expected: 07/09/2025 (Approximate), Expires: 01/06/2026 [facility] Work Phone: Comment on above: Expected: 07/09/2025 (Approximate), Expi res: 01/06/2026 Start: 07-09-2025 End: 01-06-2026 Thyrotropin [Units/volume] in Serum or Plasma Thyroid Stimulating Hormone Lab Routine Atypical atrial flutter (Multi) High risk medication use Expected: 07/09/2025 (Approximate), Expires: 01/06/2026 [facility] Work Phone: Comment on above: Expected: 07/09/2025 (Approximate), Expi res: 01/06/2026 Start: 07-05-2025 Influenza vaccination Influenza Vaccine (Season Ended) [facility] Start: 06-24-2025 End: 06-24-2025 Patient encounter procedure 06/24/2025 10:10 AM EDT Procedure Visit [facility] [address] [facility] [address] [place] [address] Joe García DPM [address] [facility] [address] [place] [address] [facility] Start: 04-15-2025 End: 04-15-2025 Patient encounter procedure 04/15/2025 11:10 AM EDT Procedure Visit [facility] [address] [facility] [address] [place] [address] Joe García DPM [address] [facility] [address] [place] [address] Diabetes mellitus due to underlying condition with diabetic polyneuropathy, unspecified whether half-way insulin use (HCC) (Primary Dx); Pain due to onychomycosis of toenails of both feet [facility] Comment on above: Diabetes mellitus due to underlying cond ition with diabetic polyneuropathy, 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 (HCC) (Primary Dx); Pain due to onychomycosis of toenails of both feet Start: 03-29-2025 CT cervical spine without contrast CT cervical spine wo [facility] Start: 03-29-2025 CT Cervical spine WO [facility] Start: 03-29-2025 CT of head without contrast CT head/brain wo [facility] Start: 03-29-2025 CT Unspecified body region WO [facility] Start: 03-29-2025 Plain X-ray of left shoulder XR shoulder LT min 2V* [facility] Start: 03-29-2025 XR Shoulder - left [facility] Start: 03-18-2025 End: 03-18-2025 Patient encounter procedure 03/18/2025 8:45 AM EDT [facility] [address] [facility] [address] [place] [address] [place] Count Includes [facility] Start: 02-04-2025 End: 02-04-2025 Patient encounter procedure [facility] Comment on above: Diabetes mellitus due to underlying cond ition with diabetic polyneuropathy, unspecified whether half-way insulin use ([facility]/HCC) (Primary Dx); Pain due to onychomycosis of toenails of both feet Start: 01-20-2025 Medicare Annual Wellness Visit Medicare Annual Wellness Visit (AWV) [facility] Start: 01-06-2025 End: 01-06-2027 US Abdominal Aorta for screening Vascular US Abdominal Aorta Aneurysm AAA Screening Vascular Ultrasound Routine Essential hypertension Atypical atrial flutter (Multi) Mixed hyperlipidemia Former smoker Expected: 01/06/2025 (Approximate), Expires: 01/06/2027 [facility] Work Phone: Comment on above: Expected: 01/06/2025 (Approximate), Expi res: 01/06/2027 Start: 11-26-2024 End: 11-26-2024 Patient encounter procedure 11/26/2024 10:30 AM EST Office Visit [facility] [address] [facility] [address] [place] [id number] Joe García DPM [address] [facility] [address] [place] [address] Arrived [facility] Comment on above: Arrived Start: 07-05-2024 COVID-19 Vaccine ( season) COVID-19 Vaccine ( season) [facility] Start: 07-05-2024 Influenza vaccination Influenza Vaccine (#1) [facility] Start: 06-03-2024 End: 06-03-2024 Patient encounter procedure 06/03/2024 10:00 AM EDT Office Visit [facility] [address] [facility] [address] [place] [address] Marcus Recinos MD [address] [facility] [address] [place] [address] [facility] Start: 07-05-2023 Influenza vaccination Influenza Vaccine (#1) [facility] Start: 05-29-2023 FUV, Provider: Marcus Recinos, Status: Pen, Time: 9:30 AM FUV, Provider: Marcus Recinos, Status: Pen, Time: 9:30 AM -[facility] [address] DO Work Phone: Start: 05-14-2023 FUV, Provider: Darwin Perdomo, Status: Pen, Time: 9:30 AM FUV, Provider: Darwin Perdomo, Status: Pen, Time: 9:30 AM -[facility] [address] DO Work Phone: Start: 11-08-2022 FUV, Provider: Marcus Recinos, Status: Pen, Time: 10:40 AM FUV, Provider: Marcus Recinos, Status: Pen, Time: 10:40 AM -[facility] [address] DO Work Phone: Start: 04-24-2022 FUV, Provider: Marcus Recinos, Status: Pen, Time: 2:10 PM FUV, Provider: Marcus Recinos, Status: Pen, Time: 2:10 PM -[facility] [address] DO Work Phone: Start: 03-27-2022 SURGNONUH, Provider: Marcus Recinos, Status: Pen, Time: 9:00 AM SURGNONUH, Provider: Marcus Recinos, Status: Pen, Time: 9:00 AM -[facility] [address] DO Work Phone: Start: 02-27-2022 EKG, Provider: [employer] 1,[id number], Status: Pen, Time: 10:00 AM EKG, Provider: [employer] TE[employer] 1,[id number], Status: Pen, Time: 10:00 AM -[facility] [address] DO Work Phone: Start: 2019 Abdominal aortic aneurysm screening Abdominal Aortic Aneurysm (AAA) Screening [facility] Start: 2014 RSV High Risk: (Elderly (60+) or Population) (1 - Risk 60-74 years 1-dose series) RSV High Risk: (Elderly (60+) or Population) (1 - Risk 60-74 years 1-dose series) [facility] Start: 2004 Zoster Vaccines (1 of 2) Zoster Vaccines (1 of 2) [facility] Start: 1976 DTaP/Tdap/Td Vaccines (1 - Tdap) DTaP/Tdap/Td Vaccines (1 - Tdap) [facility] Start: 1973 Pneumococcal vaccination Pneumococcal Vaccine (1 of 2 - PCV) [facility] Start: 1972 Diabetes mellitus screening Diabetes Screening [facility] Start: 1972 Hepatitis C screening Hepatitis C Screening [facility] Start: 1960 Pneumococcal Vaccine: 65+ Years (1 - PCV) Pneumococcal Vaccine: 65+ Years (1 - PCV) [facility] Start: 04-30-1955 COVID-19 Vaccine (#1) COVID-19 Vaccine (#1) [facility] Start: 1954 Lipid panel Lipid Panel [facility] Start: 1954 Medicare Annual Wellness Visit Medicare Annual Wellness Visit (AWV) [facility] Start: 1954 Screening for malignant neoplasm of colon [facility] Start: 1954 Thyroid stimulating hormone measurement TSH Level [facility] Patient Education [facility] Work Phone: Patient referral [facility] Work Phone: US Abdominal Aorta f or screening Vascular US Abdominal Aorta Aneurysm AAA Screening Vascular Ultrasound Routine Essential hypertension Atypical atrial flutter Mixed hyperlipidemia Former smoker 03/18/2025 8:55 AM EDT [facility] Service Area Work Phone: Immunizations Immunization Date Immunization Notes Care Provider Fa cility NEGATED: Highlighted row has not occurred!01-05-2021 influenza virus vaccine, unspecified formulation Sarath Hines [facility] Payers Date Payer Category Payer Self-pay [id number] 2024 Private Health Insurance [facility] [id number] 2019 Medicare [id number] 2019 Medicare supplementa l policy (as second payer) [employer] [id number] 2019 Private Health Insurance [id number] 1959 Medicare [id number] 1959 Private Health Insurance [facility] [id number] 1954 Unknown [id number] 2.16840.1.503000.3.579 .2.356 1954 Unknown [id number] 2.16.840.1.884548.3.579 .2.356 1954 Unknown [id number] 2.840.1.991001.3.579 .2. 1954 Unknown [id number] 2.16.840.1.883218.3.579 .2.356 1954 Unknown [id number] 2.16.840.1.375448.3.579 .2.356 1954 Unknown [id number] 2.16840.1.710532.3.579 .2.356 1954 Unknown [id number] 2.16.840.1.649300.3.579 .2.593 1954 Unknown [id number] 2.16.840.1.424167.3.579 .2.593 1954 Unknown [id number] 2.16.840.1.544830.3.579 .2.593 1954 Unknown [id number] 2.16.840.1.266466.3.579 .2.593 1954 Unknown [id number] 2.16.840.1.287118.3.579 .2.593 1954 Unknown [id number] 2.16.840.1.286513.3.579 .2.593 1954 Unknown [id number] 2.16.840.1.624158.3.579 .2.593 1954 Unknown [id number] 2.16.840.1.176999.3.579 .2.593 1954 Unknown [id number] 2.16.840.1.134376.3.579 .2.593 1954 Unknown [id number] 2.16.840.1.952319.3.579 .2.593 1954 Unknown [id number] 2.16.840.1.398190.3.579 .2.1246 1954 Unknown [id number] 2.16.840.1.724262.3.579 .2.1244 1954 Unknown [id number] 2.16.840.1.035425.3.579 .2.1244 1954 Unknown [id number] 2.16.840.1.695461.3.579 .2.1259 1954 Unknown [id number] 2.16.840.1.332721.3.579 .2.1259 1954 Unknown [id number] 2.16.840.1.654513.3.579 .2.1259 Unknown [id number] Unknown Unknown [id number] 2.16.840.1.051728.3.579 .2.531 Social History Date Type Detail Facility Start: 01-20-2022 End: 03-29-2025 Tobacco smoking status NHIS Ex-smoker (finding) [facility] Start: 12-04-2023 End: 02-04-2025 History of tobacco use [facility] Work Phone: Start: 1955 Sex Assigned At Male F [facility] Start: 12-04-2023 End: 02-04-2025 No illicit drug use No illicit drug use [facility] [address] DO Work Phone: Comment on above: DRINKS 6 BEERS A DAY ; 2 CUPS OF COFFEE RACIEL LY; QUIT IN 08/2021; Start: 04-20-2021 Tobacco smoking status Heavy tobacco smoker (finding) [facility] End: 11-04-2020 Tobacco smoking status Smoker (finding) [facility] Tobacco smoking status Never [facility] End: 11-04-2020 History of tobacco use Cigarette Smoker [facility] Work Phone: Start: 12-04-2023 End: 11-26-2024 Tobacco use and exposure Smokeless tobacco non-user [facility] Work Phone: Start: 12-04-2023 End: 04-15-2025 Alcohol intake Current drinker of alcohol (finding) [facility] Work Phone: Start: 1955 Sex Assigned At Not on file [facility] Work Phone: Start: 11-24-2023 End: 03-18-2025 Exposure to SARS-CoV-2 (event) Not sure [facility] Start: 11-26-2024 Tobacco smoking status NHIS Never smoked tobacco [facility] Tobacco smoking status NHIS Tobacco smoking consumption unknown [facility] Start: 06-03-2024 Alcohol Comment daily [facility] Work Phone: Start: 03-29-2025 Sex Male (finding) [facility] Medical Equipment Procedure Code Equipment Code Equipment Origin al Text Equipment Identifier Dates CATARACT EXTRACT ION W/ INTRAOCULAR LENS Sarath Hines DO 04/17/22 Non Biological Eye L [id number] FDA Start: 04-17-2022 Goals Date Patient Goal Desired Activity /State Functional Status Date Assessment Result Facility 04-17-2022 Functional Status N/A [facility] 01-23-2022 Functional status Patient at Baseline [facility] Work Phone: Mental Status Date Assessment Result Facility 01-23-2022 Cognitive function Cognitive Sta tus Patient at Baseline [facility] Work Phone: Clinical Notes 01-20-2022 to 04-15-2025 Joe García DPM - 04/15/2025 11:10 AM Alex Recinos MD - 01/06/2025 1:20 PM ESTPatient InstructionsAttachmentsJoe García DPM - 11/26/2024 10:30 AM ESTPatient Instructions Note Date & Type Note Facility 04-15-2025 History of Present illness Narrative Patient: Remedios [...] nail care and treatment. Patient is DM2 Allergies: Allergies Allergen Reactions Ciprofloxacin Rash Other [...] Partner Violence: Unknown (12/26/2023) Received from [facility] [place] Safety & Environment Fear of Current [...] growth with thin shiny atrophic skin bilaterally. VASC: Negative DP and positive PT pedal pulses NEURO: 5.07 [place] Vasile monofilament test intact to digits and forefoot bilaterally 125Hz tuning fork diminished to 1st MPJ bilaterally ORTHO: Positive pain on palpation to toenails of the left 1,2,3,4,5 toes and right 1,2,3,4,5 toes Minimal palpation lateral right foot and area of cuboid region ASSESSMENT 1. Diabetes mellitus due to underlying condition with diabetic polyneuropathy, unspecified whether half-way insulin use ([facility]) 2. Pain due to onychomycosis of toenails [...] feet and discussed proper shoe gear. Joe Garcaí DPM documented in this encounter [facility] 03-29-2025 Radiology Diagnostic study note [facility] Main [place] [address] [place] [address] CT Scan Report Signed Patient: Remedios Magaña MR#: [id number] : 1955 Acct:[id number] Age/Sex: 69 / M ADM Date: 5 Loc: ER Room: Type: [facility] ER Attending Dr: Copies to: Trinity Velez DO~ Ordering Provider: Trinity Velez DO Date of Service: 03/29/25 CT/CT head/brain wo con: fall, on eliquis ([id number]) CT/CT cervical spine wo con: fall CT head/brain wo con, CT cervical spine wo con 03/29/2025 9:00 PM SIGNS AND SYMPTOMS: ^fall, on eliquis TECHNIQUE:Multi-detector CT axial slices of the brain and cervical spine were obtained without IV contrast. Helical,sagittal, coronal, and 3-D reconstructionsof the cervical spine were performed. CT was performed with one or more of the following dose reduction techniques: Automated exposure control, adjustment of the mA and/or kV according to patient size, or use of iterative reconstruction technique. COMPARISON: None. FINDINGS: Noncontrast head CT: There is no shift of the midline structures, acute intracranial bleeding, mass effects, or evidence of acute ischemia. Atherosclerotic changes are noted in the intracranial segments of the internal carotid arteries. The ventricular system is normal in size. The brainstem and the cerebellum are unremarkable. Thevisualized intraorbital contents, the visualized paranasal sinuses, and the infratemporal soft tissues show no acute abnormality. The osseous structures in the skull base and the calvarium show no abnormality. Cervical spine: There is preservation of the vertebral body heights. There is severe disc height loss at C5-C6 and C6-C7. Facet degenerative changes are present throughout cervical spine. No fractures or dislocations are seen. There is reversal of the normal cervical lordosis. The bones are otherwise in anatomic alignment. The craniocervical junction and atlantoaxial joint are within normallimits. The prevertebral soft tissues are within normal limits. The paraspinous soft tissues are within normal limits. The lung apices are unremarkable. Atherosclerotic changes are noted in the carotid bifurcations. CT/CT head/brain wo con IMPRESSION: No acute intracranial pathology. Chronic age-related neurodegenerative changes are noted as above. No acute cervical spine injury. Degenerative changes are noted throughout cervical spine. Impression dictated by: Jovanna Manzanares M.D. 03/30/2025 8:46 AM Dictation Location: [place] [address] Transcribed By: [facility] 03/30/25 0846 Dictated By: Jovanna Manzanares II, MD 03/30/25 0840 Signed By: 03/30/25 0846 [facility] Work Phone: 01-06-2025 History of Present illness Narrative Marla [...] hours if needed., Disp: , Rfl: vitamins A,C,I-ehdo-bugkqd (PreserVision AREDS) 2,148 mcg-113 mg-45 mg-17.4mg tablet, [...] Scribe Attestation By signing my name below, Virginia Pace LPN, Scribe attest that this documentation has been prepared [...] discussion and plan. documented in this encounter [facility] Work Phone: 01-06-2025 Instructions Virginia Crawford LPN [...] be sent through Care Everywhere.Heart Healthy Diet (Filipino)documented in this encounter [facility] Work Phone: 11-26-2024 History of Present illness [...] Violence: Unknown (12/26/2023) Received from 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 Coronary artery disease involving [place] coronary artery of [place] heart without angina pectoris 7. Obesity, Class I, BMI 30-34.[address] [facility] Work Phone: 12-04-2023 Instructions Leticia Mi [...] January as scheduled documented in this encounter [facility] Work Phone: 01-01-2023 Evaluation note Encounter [...] Olga Phipps PharmD, Funmilayo Velazquez PharmD Candidate [employer] Other 02-06-2023 Evaluation note* Encounter Date Diagnosis [...] Ana Mujica RPh, Funmilayo Velazquez PharmD Candidate [employer] Other 01-23-2023 Evaluation note* Encounter Date Diagnosis [...] 2 weeks. Seen by Ana Mujica RPh [employer] Other 01-12-2023 Evaluation note* Encounter Date Diagnosis [...] week. Seen by Carlos A Salazar PharmD [facility] [employer] Other 06-01-2022 Hospital Discharge instructions Follow Up Care 04/04/2022 10:45:36 With:JOVANNA EDMONDS Address: [address] [place], [place] [id number]- ( ) [phone] Business (1) When:1 to 2 days [facility]05-24-2022 [facility] Discharge summary Author Jin Berkowitz [facility] January 23, 2022 12:48pm Note Date/Time January 23, 2022 12: 48pm [facility] [address] [place] [address] Discharge Summary Signed Patient: Remedios Magaña MR#: [id number] : 1955 Acct:[id number] Age/Sex: 66 / M Adm Date: 2 Loc: Room: [address] [place] [address]: Jin Berkowitz MD Copies to: [...] reformed smoker was recommended to go to [facility] after he was found to have [...] atrial flutter and was recommended togo to [facility].? EKG done there showed changes suspicious for ACS, ED physician spoke to cardiology here and was recommended to transfer here for further evaluation and management.? The patient was transferred to [facility] for further evaluation. Cardiology was consulted. He [...] Home Additional Instructions: DISCHARGE INSTRUCTIONS FOR CARDIAC CASH CONTROLLER PHONE NUMBER OF YOUR PHYSICIAN: [phone] PROCEDURE: Heart Cath The following instructions have [...] cold, numb, blue or white, call the retail salesman immediately. 4. ACTIVITY: You are advised to [...] bottle, follow the instructions on the bottle. [facility] is not responsible for incorrect prescription information [...] Patient Ordered By: Ama Morrison Follow Up: [facility] [Outside] Marcus Recinos MD [Active Staff] - 02/13/22 12:40 pm Tirso Frausto MD [Primary Care Provider] - (You have been scheduled for a follow up appointment for the following date and time, please call to rescheduleif needed.) Documented By: Jin Berkowitz MD 01/23/22 1244 Signed By: <Electronically signed by Jin Berkowitz MD> 01/23/22 1248 [facility] Work Phone: 1(769) 612-546503-22-2022 Progress note Author Brandt Petit [facility] January 23, 2022 8:50am Note Date/Time January 23, 2022 8:5 0am [facility] [address] [place] [address] Cardiology Progress Note Signed Patient: Remedios Magaña MR#: [id number] : 1955 Acct:[id number] Age/Sex: 66 / M Adm Date: 2 Loc: Room: [address] [place] [address] Type : ADM INOo Attending Dr: Jin [...] <Electronically signed by Brandt Petit MD> 01/23/22 0801 [facility] Work Phone: 1(982) 373-701103-22-2022 Hospital Discharge instructions Additional Instructions DISCHARGE INSTRUCTIONS FOR CARDIAC CASH CONTROLLER PHONE NUMBER OF YOUR PHYSICIAN: [phone] PROCEDURE: Heart Cath The following instructions have [...] cold, numb, blue or white, call the retail salesman immediately. 4. ACTIVITY: You are advised to [...] bottle, follow the instructions on the bottle. [facility] is not responsible for incorrect prescription information provided by the patient during their visit. Do not stop your medications without consulting your health care provider. Please take the list with you to your next doctor's appointment.[facility] Work Phone: 1(745) 450-793303-21-2022 Progress note Author Jin Berkowitz [facility] January 22, 2022 1:17pm Note Date/Time January 22, 2022 1:1 2pm [facility] [address] [place] [address] Hospitalist Progress Note Signed Patient: Remedios Magaña MR#: [id number] : 1955 Acct:[id number] Age/Sex: 66 / M Adm Date: 2 Loc: Room: [address] [place] [address] Type : ADM INOo Attending Dr: Jin [...] 25 Mg Tablet PO 01/22/23 20:59 BID NACRISO Multivitamins 1 tab 01/20/22 09:00 01/22/22 10:30 [...] <Electronically signed by Jin Berkowitz MD> 01/22/22 6493 [facility] Work Phone: 1(267) 422-975103-20-2022 Progress note Author Ama Morrison [facility] January 21, 2022 5:02pm Note Date/Time January 21, 2022 3:1 9pm [facility] [address] [place] [address] Hospitalist Progress Note Signed with Addenda Patient: Remedios Magaña MR#: [id number] : 1955 Acct:[id number] Age/Sex: 66 / M Adm Date: 2 Loc: Room: [address] [place] [address] Type : ADM INOo Attending Dr: Ama [...] <Electronically signed by Ama Morrison MD> 01/21/22 9636 [facility] Work Phone: 1(250) 580-819503-20-2022 Progress note Author Brandt Petit [facility] January 21, 2022 10:42am Note Date/Time January 21, 2022 10: 41am [facility] [address] [place] [address] Cardiology Progress Note Signed Patient: Remedios Magaña MR#: [id number] : 1955 Acct:[id number] Age/Sex: 66 / M Adm Date: 2 Loc: Room: [address] [place] [address] Type : ADM INOo Attending Dr: Ama [...] MPV Neut % (Auto) Lymph % (Auto) Moffat % (Auto) Eos % (Auto) Baso % (Auto) Neut # (Auto) Lymph # (Auto) Moffat # (Auto) Eos # (Auto) Baso # (Auto) Nucleated RBC % (auto) APTT POC Glucose 133 POC Glucose Comment Glu2: cleaned meter Troponin I High Sens 7 Add-On Test Request Cancelled 01/20/22 01/20/22 01/20/22 16:41 17:37 20:51 Corrected WBC Uncorrected WBC Count RBC Hgb Hct MCV MCH MCHC RDW Plt Count MPV Neut % (Auto) Lymph % (Auto) Moffat % (Auto) Eos % (Auto) Baso % (Auto) Neut # (Auto) Lymph # (Auto) Moffat # (Auto) Eos # (Auto) Baso # [...] % (Auto) 56.3 Lymph % (Auto) 26.4 Moffat % (Auto) 13.0 Eos % (Auto) 3.1 Baso % (Auto) 1.2 Neut # (Auto) 2.8 Lymph # (Auto) 1.3 Moffat # (Auto) 0.6 Eos # (Auto) 0.2 Baso # (Auto) 0.1 Nucleated RBC % (auto) 0.2 APTT 81.3 H POC Glucose 113 POC Glucose Comment Troponin I High Sens Add-On Test Request 01/21/22 07:15 Corrected WBC Uncorrected WBC Count RBC Hgb Hct MCV MCH MCHC RDW Plt Count MPV Neut % (Auto) Lymph % (Auto) Moffat % (Auto) Eos % (Auto) Baso % (Auto) Neut # (Auto) Lymph # (Auto) Moffat # (Auto) Eos # (Auto) Baso # [...] signed by Brandt Petit MD> 01/21/22 1042 [facility] Work Phone: 1(755) 136-658403-19-2022 Consult note Author Brandt Peitt [facility] January 20, 2022 5:08pm Note Date/Time January 20, 2022 5:0 8pm [facility] [address] [place] [address] Cardiology Consult Note Signed Patient: Remedios Magaña MR#: [id number] : 1955 Acct:[id number] Age/Sex: 66 / M Adm Date: 2 Loc: Room: [address] [place] [address] Type : ADM INOo Attending Dr: Ama [...] breath with exertion. 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 In the [facility] ER, an EKG was checked which again [...] mg-vit E 90 mg-zinc 40 mg-copper 1 wi-nujoul-rskkvs capsule (PreserVision AREDS-2) 1 tab PO BID [...] x10E3/uL Lymph # (Auto) 1.3 (1.00-4.8) x10E3/uL Moffat # (Auto) 0.6 (0.0-0.8) x10E3/uL Eos # [...] patient. Documented By: Brandt Petit MD 01/20/22 7474 Signed By: <Electronically signed by Brandt Petit MD> 01/20/22 2276 [facility] Work Phone: 1(728) 397-555603-19-2022 History and physical note Author Pola Anders [facility] January 20, 2022 6:26am Note Date/Time January 20, 2022 2:4 5am [facility] [address] [place] [address] Hospitalist H&P Signed Patient: Remedios Magaña MR#: [id number] : 1955 Acct:[id number] Age/Sex: 66 / M Adm Date: 2 Loc: Room: [address] [place] [address] Type : ADM IN Attending Dr: Pola Anders MD Copies to: MD Tirso Chew MD~ HPI DATE OF EXAMINATION: 01/20/22 CHIEF COMPLAINT: chest pain HISTORY OF PRESENT ILLNESS: Patient is a 66-year-old gentleman past medical history of diabetes diet- controlled, hyperlipidemia, BPH, reformed smoker was recommended to go to [facility] after he was found to have [...] atrial flutter and was recommended togo to [facility]. EKG done there showed changes suspicious [...] noted below or in HPI [facility] Medical History (Updated 01/20/22 @ 02:46 by [...] mg-vit E 90 mg-zinc 40 mg-copper 1 [id number]-[id number] capsule (PreserVision AREDS-2) 1 tab PO BID [...] and is hemodynamically stable Labs reviewed from [facility] which are essentially normal including TSH and Troponin Obtain lipid panel, A1c, echo Consult cardiology Ordered routine labs Telemetry Fall precautions CIWA protocol Resume heparin drip that has been started at [facility] DVT prophylaxis CODE STATUS full code. Documented By: Pola Anders MD 01/20/22 0238 Signed By: <Electronically signed by Pola Anders MD> 01/20/22 0626 [facility] Work Phone: Discharge summary Author Marcus Recinos [facility] March 27, 2022 9:20am Note Date/Time March 27, 2022 9:20a m [facility] [address] [place] [address] Discharge Summary Signed Patient: Remedios Magaña MR#: [id number] : 1955 Acct:[id number] Age/Sex: 66 / M Adm Date: 2 Loc: Room: Attending Dr: Marcus Recinos MD Copies to: MD Marcus Sommer MD, [facility]~ Providers Date of Discharge: 03/27/22 Discharging Provider: [...] RF: 0 Documented By: Marcus Recinos MD, [facility] 2 0920 Signed By: <Electronically signed by MD HAFSA Recinos> 03/27/22 0920 [facility] Work Phone: Evaluation + Plan note No data available for this section [facility] Diagnosis Onset Date Resolution Status Atrial flutter acute Cardiomyopathy acute Chronic alcohol use acute Diabetes mellitus acute Hyperlipidemia acute [facility] Work Phone: Evaluation noteNo assessment information available [facility] Work Phone: Evaluation noteNo InformationNort [email or web address] Other Evaluation note* Diagnosis Atrial flutter, unspecified type (CMS/HCC)- Primary Benign essential hypertension Essential hypertension, benign High risk medication use Hyperlipidemia, unspecified hyperlipidemia type Pulmonary emphysema, unspecified emphysema type (CMS/HCC) Coronary artery disease involving [place] coronary artery of [place] heart without angina pectoris Obesity, Class I, BMI 30-34.9 [address] in this encounter 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 Work Phone: Evaluation note* Diagnosis Diabetes mellitus due to underlying condition with diabetic polyneuropathy, unspecified whether half-way insulin use (CMS/HCC)- Primary Pain due to onychomycosis of toenails of both feet [facility] Diagnosis Essential hypertension Unspecified essential hypertension Atypical atrial flutter Mixed hyperlipidemia Former smoker Personal history of tobacco use, presenting hazards to health documented in this encounter 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 Safety [facility] Environment Fear of [...] and positive PT pedal pulses NEURO: 5.07 [place] Vasile monofilament test intact to digits and forefoot bilaterally 125Hz tuning fork diminished to 1st MPJ bilaterally ORTHO: Positive pain on palpation to toenails of the left 1,2,3,4,5 toes and right 1,2,3,4,5 toes Minimal palpation lateral right foot and area of cuboid region ASSESSMENT 1. Diabetes mellitus due to underlying condition with diabetic polyneuropathy, unspecified whether half-way insulin use ([facility]) 2. Pain due to onychomycosis of toenails [...] gear. Joe García DPM [facility] Work Phone: [facility] Work Phone: [facility] Work Phone: Progress note No data available for this section [facility] for visit Narrative* Imaging (Routine) - Authorized Specialty Diagnoses / Procedures Referred By Mateo t Referred To Contact Cardiology Diagnoses Essential hypertension Atrial flutter, unspecified type (Multi) Mixed hyperlipidemia Former smoker Procedures Vascular US Abdominal Aorta Aneurysm AAA Screening Marcus Recinos MD [facility] [address], [address] [address] Phone: tel: fax: Referral ID Status Reason Start Date Expiration Date Visits Requested Visits Authorized [id number] Authorized Perform Procedure 01/06/2025 01/06/[address] [facility] Work Phone: Chief Complaint and Reason for Visit Chief [...] for C ardioversion a flutter i48.92 [id number] Chief Complaint Admit Date L shoulder, back injury March 29, 2025 8 :26pm Advance Directives No Advanced Directives Records Found [...] testing due in JulyAmiodarone order [facility]* REMEDIOS MAGAÑA is [...] more aggressive diet. Amiodarone order sent to [facility] for January 2023* Patient in the [...] test done please contact our office at [phone] and press option #4 so that we may assist you in the problems. * Thank you for your compliance with this testing. * The Staff * [facility] * Please have done July 2023 [...] Procedures ECG 12 Lead Marcus Recinos MD [address] [place] [address] 2, [place]on[place] [address] [place] [id number] Referral ID Status Reason Start Date Expiration Date V isits Requested Visits Authorized [id number] Authorized 12/04/2023 12/03/2024 1 1 Specialty Diagnoses / Procedures Referred By Contac t Referred To Contact Cardiology Diagnoses Benign essential hypertension Atrial flutter, unspecified type (CMS/HCC) Procedures Follow Up In Cardiology Marcus Recinos MD [address] [place] [address] 2, [place] [address] [place] [id number] Marcus Recinos MD [address] [place] [address] 2, [address] [address] Referral ID Status Reason Start Date Expiration Date V isits Requested Visits Authorized [id number] Authorized 12/04/2023 12/03/2024 1 1 Additional Source [...] MD Attending Provider, Referring Prov ider Active 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 Relationship Specialty Start Date End Date Tirso Frausto MD [address] [place] [address] PCP - General 11/04/99 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 Relationship Specialty Start Date End Date Tirso Frausto MD [address] [place] [address] PCP - General Family Medicine 11/26/24 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 Relationship Specialty Start Date End Date Tirso Frausto MD [address] [place] [address] PCP - General 11/04/99 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 Relationship Specialty Start Date End Date Tirso Frausto MD [address] [place] [address] PCP - General Family Medicine 11/26/24 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 Relationship Specialty Start Date End Date Tirso Frausto MD [address] [place] [address] PCP - General Family Medicine 11/26/24 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 Relationship Specialty Start Date End Date Tirso Frausto MD [address] [place] [address] PCP - General 11/04/99 Team Status: Inactive Member Role Status Dates Tirso Frausto MD Primary Care Provider Active Start: March 29, 2025 End: March 29, 2025 Trinity Velez DO Emergency Provider Active Start: March 29, 2025 End: March 29, 2025 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 Relationship Specialty Start Date End Date Tirso Frausto MD PCP - General Family Medicine 11/26/24 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 Relationship Specialty Start Date End Date Tirso Frausto MD PCP - General Family Medicine 11/26/24 (unrecognized sect ion and content) No Status Records FoundNo Status Records FoundNo Status Records FoundNo Status Records FoundNo Status Records FoundNo Status Records FoundNo Status Records FoundNo Status Records Found INFORMATION SOURCE (unrecogn ized section and content) DATE CREATED AUTHOR 04/25/2022 [employer] DATE CREATED AUTHOR AUTHOR'S ORGANIZ ATION 02/10/2023 [facility] DATE CREATED AUTHOR AUTHOR'S ORGANIZ ATION 03/15/2023 [facility] DATE CREATED AUTHOR AUTHOR'S ORGANIZ ATION 02/20/2024 [facility] DATE CREATED AUTHOR AUTHOR'S ORGANIZ ATION 03/23/2025 [facility] DATE CREATED AUTHOR AUTHOR'S ORGANIZ ATION 04/12/2025 [facility] DATE CREATED AUTHOR AUTHOR'S ORGANIZ ATION 04/18/2025 [facility] EPIC DATE CREATED AUTHOR AUTHOR'S ORGANIZ ATION 04/25/2025 [facility] Goals (unrecognized section and content) Goals may be documented in a n alternate section REASON FOR VISIT (unrecogniz ed section and content) Reason Comments Follow-up 6 months Specialty Diagnoses / Procedures Referred By Contac t Referred To Contact Diagnoses Atrial flutter, unspecified type (CMS/HCC) Procedures ECG 12 Lead Marcus Recinos MD [facility] [address], [address] [address] Referral ID Status Reason Start Date Expiration Date V isits Requested Visits Authorized [id number] Authorized 12/04/2023 12/03/2024 1 1 Reason Comments Toenail Care Non dm nail care Reason Comments Follow-up 6m Specialty Diagnoses / Procedures Referred By Contac t Referred To Contact Cardiology Diagnoses Benign essential hypertension Procedures Follow Up In Cardiology Marcus Recinos MD [address] [place] [address] 2, [address] [address] Phone: tel: fax: Marcus Recinos MD [facility] [address], [address] [address] Phone: tel: fax: Referral ID Status Reason Start Date Expiration Date V isits Requested Visits Authorized [id number] Authorized 06/03/2024 06/03/2025 1 1 Reason Comments [...] BE BASED ON THE PRIMARY CLINICAL RECORDS. [facility]. provides no warranty or guarantee of the accuracy or completeness of information in this document.
[2025-05-20 11:31] LABS: Free T3 2.26 pg/mL (2.18-3.98); Thyroid Stimulating Hormone 2.936 uIU/mL (0.358-3.740)
== END 2025-05-20 10:03 | disposition home or self-care (01) ==
LOC: LAB 10:02
PROVIDERS: PCP Family Medicine; Visit Provider Family Medicine
DX: E05.90 Thyrotoxicosis, unspecified without thyrotoxic crisis or storm (principal)
CPT/HCPCS: 36415; 84436; 84443; 84481

== ENCOUNTER 2025-07-09 08:35 | Outpatient (OUT) | payer MEDICARE, SELFPAY ==
--- OUTSIDE RECORDS SUMMARY | 2025-07-09 08:49 | XMS_ITS | CCD ---
Author Organization [facility] Care Team Providers Care Carpet Cleaning Technician Name Role Phone MD Tirso Frausto Primary Care Provider [phone] MD Pola Anders Admit Provider MD Jin [...] Care Unavail able Marcus Recinos Referring Unavailable Hoy, Dr. Tirso Santos Primary Care Unavail able Recinos, Marcus Attending Unavailable REQUEST, NONE LISTED Primary Care Unavaila ble HOY ., DR CHAHAL Consulting Unavailable HOY ., DR CHAHAL Attending Unavailable HOY ., DR CHAHAL Admitting Unavailable BROWN, STANFORD Consulting Unavailable RECINOS, DR MARCUS Rivera [...] REQUEST, NONE LISTED Primary Care Unavaila ble BARTON, WINCHA Consulting Unavailable RECINOS, DR MARCUS Rivera Consulting Unavailable NOELLE VALERA Attending Unavailable MORAIMA, NOELLE Admitting Unavailable REQUEST, DR NONE LISTED Primary Care Unavaila ble MORAIMA, [...] Unavailable HOY ., DR CHAHAL Admitting Unavailable Tirso Frausto MD Primary Care Provider [phone] Tirso Frausto MD Primary Care Provider [phone] Unavailable Primary Care Provider UnavailTirso Boland MD Primary Care Provider [phone] Tirso Frausto MD Primary Care Provider [phone] Trinity Velez DO Emergency Provider Tirso Frausto MD Primary Care Provider JOE GARCÍA Attending Unavailable JOE GARCÍA Attending Unavailable JOE GARCÍA Attending Unavailable Trinity Velez Admitting Unavailable Trinity Velez Attending Unavailable Tirso Frausto Primary Care Unavailable MARCUS RECINOS Referring Unavailable TIRSO FRAUSTO Primary Care Unavailable MARCUS RECINOS Referring Unavailable TIRSO FRAUSTO Primary Care Unavailable MARCUS RECINOS Attending Unavailable MARCUS RECINOS Referring Unavailable TIRSO FRAUSTO Primary Care Unavailable Allergies Allergy Classification Reported Allergen(s) Allergy Type Date of Onset Reaction(s) Facility (18 sources) Ciprofloxacin; Translations: [Ciprofloxacin] Drug Allergy 03-27-2022 [facility] [place] (14 sources) Ciprofloxacin; Translations: [Cipro XR] Drug Allergy [facility] 250 DO Work Phone: (1 source) Ciprofloxacin Drug Allergy 04-19-2015 [facility] (6 sources) Ciprofloxacin; Translations: [CIPROFLOXACIN (MIXTURE)] Drug Allergy 10-14-2023 [facility] Work Phone: Medications Current Medications Medication Drug [...] Start: 09-29-2024 take 1 tablet by mouth once daily amiodarone (Pacerone) 200 mg tablet Indications: Unspecified atrial flutter (Multi) Take 1 tablet (200 mg) by mouth once daily. 90 tablet 1 03/17/2025 Active Start: 03-27-2022 End: 12-04-2023 take 1 tablet by mouth in the morning amiodarone (Pacerone) 200 MG tablet Take 200 mg by mouth in the morning. 09/29/2024 Active Start: 02-13-2022 End: 03-27-2022 take 1 tablet by mouth twice daily Amiodarone 200 mg Tablet Discontinued 200 MG PO Twice daily March 27, 2022 12:00am March 27, 2022 9:17am apixaban 5 mg oral tablet (18 sources) Factor Xa Inhibitor Start: 01-20-2022 End: 01-06-2026 take 1 tablet by mouth twice daily apixaban (Eliquis) 5 mg tablet Indications: Atrial flutter, unspecified type (Multi) , High risk medication use Take 1 tablet (5 mg) by mouth 2 times a day. 180 tablet 3 01/06/2025 01/06/2026 Active ascorbic acid 226 mg / beta carotene 46531 unt / cuprous oxide 0.8 mg / dl-alpha tocopheryl acetate 200 unt / zinc oxide 34.8 mg oral capsule (5 sources) Vitamin C Start: 04-16-2022 take 1 capsule by mouth once daily PreserVision AREDS oral capsule 1 cap, Oral, Daily, Prophylaxis Start Date: 04/16/22 Status: Ordered take 1 tablet by kyle every twelve hours vitamins A,C,L-gxwl-jewhln (PreserVision AREDS) 2,148 mcg-113 mg-45 mg-17.4mg tablet [...] Active ferrous sulfate 325 mg oral tablet (10 sources) Start: 10-02-2024 take 1 tablet by [...] hours levothyroxine sodium 0.05 mg oral tablet (9 sources) l-Thyroxine take 1 tablet by mouth once daily in the morning levothyroxine (Synthroid, Levoxyl) 50 mcg tablet Take 1 tablet (50 mcg) by mouth once daily in the morning. Take on an empty stomach at the same time each day, either 30 to 60 minutes prior to breakfast Active naproxen 500 mg oral tablet (1 source) Nonsteroidal Anti-inflammatory Drug Start: 03-29-20 25 take 1 tablet by mouth twice daily Naproxen 500 mg tablet Active 500 MG PO Twice daily March 29, 2025 12:00am pantoprazole 40 mg delayed release oral tablet (20 sources) Proton Pump Inhibitor Start: 01-05-20 21 take 1 tablet by mouth once daily Pantoprazole 40 mg tablet,delayed release (DR/EC) Active 40 MG PO Daily January 20, 2022 12:00am pravastatin sodium 40 mg oral tablet (11 sources) HMG-CoA Reductase Inhibitor Start: 09-11-20 End: 06-07-20 take 1 tablet by mouth once daily pravastatin (Pravachol) 40 mg tablet Indications: Mixed hyperlipidemia Take 1 tablet (40 mg) by mouth once daily. 90 tablet 3 06/07/2025 06/07/2026 Active Start: 08-21-2023 take 1 tablet by [...] mg) by mouth once daily. Active tamsulosin hydrochloride 0.4 mg oral capsule (20 sources) alpha-Adrenergic Clare Start: 01-04-2021 End: 12-04-2023 take 1 capsule by mouth once daily Tamsulosin 0.4 mg capsule Active 0.4 MG PO Daily January 20, 2022 12:00am Vit C,J-Hu-Gppuh-Lutein -Zeaxan (Preservision Areds-2) 250-90-40-1 mg Capsule (7 sources) Start: 01-20-2022 Vit C,R-Mp-Apxum-Diandra tein-Zeaxan (Preservision Areds-2) 250-90-40-1 mg Capsule Active 1 TAB PO Twice daily January 20, 2022 2:13am Start: 01-20-2022 Vit C,E-Zn-Economic Development Manager kj-Emsdrt-Uuuxgz (Preservision Areds-2) 250-90-40-1 mg Capsule Active 1 TAB PO Twice daily January 20, 2022 12:00am Completed/Discontinued Medications Medication Drug Class(es) Dates Sig (Normalized) Sig (Original) [id number] 200 actuat albuterol 0.09 mg/actuat metered dose [...] 24 hr Discontinued 50 MG PO Daily March 27, 2022 12:00am March 29, 2025 9:02pm Start: 01-20-2022 End: 01-23-2022 take 1 tablet by mouth twice daily Metoprolol Tartrate 50 mg tablet Discontinued 50 MG PO Twice daily January 20, 2022 12:00am January 23, 2022 9:41am Start: 01-18-2022 take 1 tablet by kyle once daily Metoprolol Tartrate 50 MG Oral Tablet TAKE 1 TABLET DAILY. Quantity: 0 Refills: 0 Ordered: 18-Jan-2022 DO Start : 18-Jan-2022 Active PreserVision AREDS TABS (20 sources) PreserVision ARE DS TABS TAKE 1 TABLET EVERY 12 HOURS. Quantity: 0 Refills: 0 Ordered: 13-Feb-2022 DO Active simvastatin 20 mg oral tablet (20 sources) HMG-CoA Reductase Inhibitor Start: 1 End: 5 take 1 tablet by mouth [...] 1 tablet daily - being referred to [facility] to manage Quantity: 30 Refills: [...] Chronic Chronic obstructive pulmonary disease and bronchiectasis (18 sources) Chronic obstructive lung disease; Translations: [Chronic airway obstruction, not elsewhere classified] Onset: 10-14-2023 12-04-2023 Chronic Coronary atherosclerosis and other heart disease (1 source) Coronary arteriosclerosis; Translations: [Atherosclerotic heart disease of [place] coronary artery without angina pectoris] 12-04-2023 Chronic [...] respiratory abnormalities] Episodic Other lower respiratory disease (7 sources) Dyspnea; Translations: [Shortness of breath] Onset: 10-14-2023 10-14-2023 Episodic Other non-traumatic joint disorders (1 source) Pain in left shoulder; Translations: [Pain in left shoulder] Onset: 03-29-2025 Episodic Other nutritional; endocrine; and metabolic disorders (20 sources) Obesity; Translations: [Obesity, unspecified] Chronic Other nutritional; endocrine; and metabolic disorders (2 sources) Obese class I; Translations: [Obesity, unspecified] 12-04-2023 Chronic Other nutritional; endocrine; and metabolic disorders (4 sources) Body mass index 30+ - obesity; [...] 10-13-2022 Episodic Other aftercare (7 sources) Other intermediate (current) drug therapy; Translations: [OTH PRISON CURRENT DRUG THERAPY] Onset: 10-22-2022 Episodic Other aftercare (8 sources) Taking high risk medication; Translations: [Other intermediate (current) drug therapy] Onset: 10-14-2023 12-04-2023 Episodic Other liver diseases (4 sources) Abnormal levels of other serum enzymes; Translations: [ABNORMAL LEVELS OTHER SERUM ENZYMES] Onset: 11-02-2022 Episodic Other lower respiratory disease (1 source) Shortness of breath; Translations: [Shortness of breath] Onset: 10-14-2023 Episodic Other non-traumatic joint disorders (1 [...] Comment on above: QUIT IN 08/2021; Unclassified (4 sources) Onset: 12-04-2023 Resolved: 01-06-2025 12-04-2023 Results Test Name Value Interpretation Reference Range Facility TRANSTHORACIC ECHO (TTE) COM PLETEon 06-17-2025 TRANSTHORACIC ECHO (TTE) COMPLETE [address], [address] [place] [address] TRANSTHORACIC ECHOCARDIOGRAM REPORT Patient Name: REMEDIOS Black Physician: [id number] Marcus Recinos MD, [facility] Study Date: 06/17/2025 Ordering Provider: [id number] MARCUS RECINOS MRN/PID: [id number] Fellow: Nurse: Date of /Age: 11 1955 Logistics Team Lead: Taina Garcia RDCS years Gender Assigned at Additional Staff: : Height: 182.88 cm Admit Date: Weight: 101.60 kg Admission Status: Outpatient BSA / BMI: 2.24 m2 / 30.38 Department Location: [facility] kg/m2 [place] Blood Pressure: 118 /78 mmHg Study Type: TRANSTHORACIC ECHO (TTE) COMPLETE Diagnosis/ICD: Shortness of breath-R06.02; Essential (primary) hypertension-I10; Unspecified atrial flutter-I48.92 Indication: Paroxysmal Atrial Fibrillation, Abnormal EKG-1st Degree AV Block, COPD, Hyperlipidemia, Former Smoker, Obesity, Hypothyroid CPT Codes: Echo Complete w Full Doppler-92114 Study Detail: The following Echo studies were performed: 2D, M-Mode, Doppler and color flow. PHYSICIAN INTERPRETATION: Left Ventricle: Left ventricular ejection fraction is normal by visual estimate at 65-70%. There are no regional wall motion abnormalities. The left ventricular cavity size is normal. There is normal septal and normal posterior left ventricular wall thickness. Spectral Doppler shows a Grade I (impaired relaxation pattern) of left ventricular diastolic filling with normal left atrial filling pressure. Left Atrium: The left atrial size is normal. Right Ventricle: The right ventricle is normal in size. There is normal right ventricular global systolic function. Right Atrium: The right atrial size is normal. Aortic Valve: The aortic valve is trileaflet. The aortic valve area by VTI is 3.40 cm?? with a peak velocity of 1.50 m/s. The peak and mean gradients are 9 mmHg and 5 mmHg, respectively, with a dimensionless index of 0.74. There is trace aortic valve regurgitation. Mitral Valve: The mitral valve is mildly thickened. The doppler estimated peak and mean diastolic gradients are 3 mmHg and 1 mmHg, respectively. There is trace mitral valve regurgitation. The E Vmax is 0.61 m/s. Tricuspid Valve: The tricuspid valve is structurally normal. There is trace tricuspid regurgitation. The Doppler estimated right ventricular systolic pressure (RVSP) is slightly elevated at 33 mmHg. Pulmonic Valve: The pulmonic valve is structurally normal. There is no indication of pulmonic valve regurgitation. Pericardium: No pericardial effusion noted. Aorta: The aortic root is abnormal. There is mild dilatation of the aortic root. Systemic Veins: The inferior vena cava appears normal in size, with IVC inspiratory collapse greater than 50%. CONCLUSIONS: 1. Left ventricular ejection fraction is normal by visual estimate at 65-70%. 2. Spectral Doppler shows a Grade I (impaired relaxation pattern) of left ventricular diastolic filling with normal left atrial filling pressure. 3. There is normal right ventricular global systolic function. 4. The Doppler estimated RVSP is slightly elevated at 33 mmHg. QUANTITATIVE DATA SUMMARY: 2D MEASUREMENTS: Normal Ranges: Ao Root s: 3.90 cm LAs: 3.68 cm (2.7-4.0cm) RVIDd: 4.03 cm (0.9-3.6cm) IVSd: 0.93 cm (0.6-1.1cm) LVPWd: 0.76 cm (0.6-1.1cm) LVIDd: 5.50 cm (3.9-5.9cm) LVIDs: 3.36 cm LV Mass Index: 76.6 g/m2 LVEDV Index: 51.96 ml/m2 LV % FS 38.9 % LEFT ATRIUM: Normal Ranges: LA Vol A4C: 50.3 ml (22+/-6mL/m2) LA Vol A2C: 66.8 ml LA Vol BP: 59.5 ml LA Vol Index A4C: 22.5ml/m2 LA Vol Index A2C: 29.9 ml/m2 LA Vol Index BP: 26.6 ml/m2 LA Vol A4C: 47.9 ml LA Vol A2C: 62.6 ml LA Vol Index BSA: 24.7 ml/m2 LV SYSTOLIC FUNCTION: Normal Ranges: EF-A4C View: 73 % (>=55%) EF-A2C View: 64 % EF-Biplane: 69 % EF-Visual: 68 % LV EF Reported: 68 % LV DIASTOLIC FUNCTION: Normal Ranges: MV Peak E: 0.61 m/s (0.7-1.2 m/s) MV Peak A: 0.71 m/s (0.42-0.7 m/s) E/A Ratio: 0.86 (1.0-2.2) MV e' 0.083 m/s (>8.0) MV lateral e' 0.08 m/s MV medial e' 0.09 m/s E/e' Ratio: 7.37 (<8.0) MITRAL VALVE: Normal Ranges: MV Vmax: 0.87 m/s (<=1.3m/s) MV peak P.0 mmHg (<5mmHg) MV mean P.0 mmHg (<48mmHg) MV VTI: 39.24 cm (10-13cm) MV DT: 442 msec (150-240msec) AORTIC VALVE: Normal Ranges: AoV Vmax: 1.50 m/s (<=1.7m/s) AoV Peak P.0 mmHg (<20mmHg) AoV Mean P.0 mmHg (1.7-11.5mmHg) LVOT Max Jerod: 1.14 m/s (<=1.1m/s) AoV VTI: 34.03 cm (18-25cm) LVOT VTI: 25.09 cm LVOT Diameter: 2.42 cm (1.8-2.4cm) AoV Area, VTI: 3.40 cm2 (2.5-5.5cm2) AoV Area,Vmax: 3.50 cm2 (2.5-4.5cm2) AoV Dimensionless Index: 0.74 RIGHT VENTRICLE: RV Basal 2.79 cm RV Mid 2.00 cm RV Major 7.0 cm TAPSE: 25.0 mm RV s' 0.17 m/s TRICUSPID VALVE/RVSP: Normal Ranges: Peak TR Velocity: 2.74 m/s Est. RA Pressure: 3 mmHg RV Syst Pressure: 33 mmHg (< 30mmHg) IV (more content not included)... [facility] CT cervical spine wo conon 0 03-30-2025 CT cervical spine wo con [facility] [address] [place] [address] [place] [address] CT Scan Report Signed Patient: Remedios Magaña MR#: [id number] 4 : 1955 Acct:[id number] Age/Sex: 69 / M ADM Date: 03/29/25 Loc: ER Room: Type: [facility] ER Attending Dr: Copies to: Trinity Velez DO Ordering Provider: Trinity Velez DO Date of Service: 03/29/25 CT/CT head/brain wo con: fall, on eliquis ([id number]) CT/CT cervical spine wo con: fall CT [...] Manzanares M.D. 03/30/2025 8:46 AM Dictation Location: [place] [address] Transcribed By: [facility] 03/30/25 0846 Dictated By: Jovanna Manzanares II, MD 03/30/25 0840 Signed By: 03/30/25 0846 Normal [facility] XR shoulder LT min 2V*on XR shoulder LT min 2V* [facility] [address] [place] [address] [place] [address] XRay Report Signed Patient: Remedios Magaña MR#: [id number] 4 : 1955 Acct:[id number] Age/Sex: 69 / M ADM Date: 03/29/25 Loc: ER Room: Type: [facility] ER Attending Dr: Copies to: Trinity [...] Manzanares M.D. 03/30/2025 8:57 AM Dictation Location: [place] [address] Transcribed By: LAUREN 03/30/25 0857 Dictated By: Jovanna Manzanares II, MD 03/30/25 0856 Signed By: 03/30/25 0857 Normal [facility] Alanine aminotransferase [En zymatic activity/volume] in Serum or PlasmaOrdered By: Trinity Velez on 03-29-2025 ALT [Catalytic activity/Vol] Alanine aminotransferase [Enzymatic activity/volume] in Serum or Plasma High 7-52 [facility] Albumin [Mass/volume] in Ser um or Plasma by Bromocresol green (BCG) dye binding methoOrdered By: Trinity Velez on 03-29-2025 Albumin BCG dye [Mass/Vol] Albumin [Mass/volume] in Serum or Plasma by Bromocresol green (BCG) dye binding metho 3.5-5.7 [facility] Alkaline phosphatase [Enzyma tic activity/volume] in Serum or PlasmaOrdered By: Trinity Velez on 03-29-2025 ALP [Catalytic activity/Vol] Alkaline phosphatase [Enzymatic activity/volume] in Serum or Plasma 34-104 [facility] Aspartate aminotransferase [ Enzymatic activity/volume] in Serum or PlasmaOrdered By: Trinity Velez on 03-29-2025 AST [Catalytic activity/Vol] Aspartate aminotransferase [Enzymatic activity/volume] in Serum or Plasma High 13-39 [facility] Basophils Auto (Bld) [#/Vol] Ordered By: Trinity Velez on 03-29-2025 Basophils (Bld) [#/Vol] Automated basophil count 0.0-0.2 [facility] Basophils/100 WBC Auto (Bld) Ordered By: Trinity Velez on 03-29-2025 Basophils/100 WBC (Bld) Automated basophil % . [facility] Bilirubin.total [Mass/volume ] in Serum or PlasmaOrdered By: Trinity Velez on 03-29-2025 Bilirubin [Mass/Vol] Bilirubin.total [Mass/volume] in Serum or Plasma 0.3-1.0 [facility] Calcium [Mass/volume] in Ser um or PlasmaOrdered By: Trinity Velez on 03-29-2025 Calcium [Mass/Vol] Calcium [Mass/volume ] in Serum or Plasma Low 8.6-10.3 [facility] Carbon dioxide, total [Moles /volume] in Serum or PlasmaOrdered By: Trinity Velez on 03-29-2025 CO2 [Moles/Vol] Carbon dioxide, tota l [Moles/volume] in Serum or Plasma 21.0-31.0 [facility] Chloride [Moles/volume] in S thompson or PlasmaOrdered By: Trinity Velez on 03-29-2025 Chloride [Moles/Vol] Chloride [Moles/vol ume] in Serum or Plasma Low 98-107 [facility] Complete Blood Count Auto Di ffon 03-29-2025 Basophils (Bld) [#/Vol] 0.1 10*3/uL Normal 0.0-0.2 [facility] Comment on above: Result Comment: PERF ORMED BY: [place] [address] PATHOLOGIST TECHNICAL SALES REPRESENTATIVES EMEKA GOMEZ M.D. Performed By: #### C K, CBC, CMP #### [place] [address] [place] #### MYOG #### [facility] , Basophils/100 WBC (Bld) 1.4 % Normal . [facility] Comment on above: Performed By: #### C K, CBC, CMP #### [facility] [address] [place] [address] [place] #### MYOG #### [facility] , Eosinophils (Bld) [#/Vol] 0.1 10*3/uL Normal 0.0-0.45 [facility] Comment on above: Performed By: #### C K, CBC, CMP #### [address] #### MYOG #### [facility] , Eosinophils/100 WBC (Bld) 2.0 % Normal . [facility] Comment on above: Performed By: #### C K, CBC, CMP #### [place] [address] [place] #### MYOG #### [facility] , Erythrocyte distribution width (RBC) [Ratio] 13.3 % Normal 12.0-14.8 [facility] Comment on above: Performed By: #### C K, CBC, CMP #### [place] [address] [place] #### MYOG #### [facility] , Hematocrit (Bld) [Volume fraction] 41.8 % Normal 38.8-50.0 [facility] Comment on above: Performed By: #### C K, CBC, CMP #### [place] [address] [place] #### MYOG #### [facility] , Hemoglobin (Bld) [Mass/Vol] 14.8 g/dL Normal 13.0-17.0 [facility] Comment on above: Performed By: #### C K, CBC, CMP #### [place] [address] [place] #### MYOG #### [facility] , Lymphocytes (Bld) [#/Vol] 1.0 10*3/uL Normal 1.00-4.8 [facility] Comment on above: Performed By: #### C K, CBC, CMP #### [place] [address] [place] #### MYOG #### [facility] , Lymphocytes/100 WBC (Bld) 16.6 % Normal . [facility] Comment on above: Performed By: #### C K, CBC, CMP #### [place] [address] [place] #### MYOG #### [facility] , MCH (RBC) [Entitic mass] 31.8 pg Normal 27.5-35.2 [facility] Comment on above: Performed By: #### C K, CBC, CMP #### [address] #### MYOG #### [facility] , MCV (RBC) [Entitic vol] 90.0 fL Normal 83.5-101 [facility] Comment on above: Performed By: #### C K, CBC, CMP #### [address] #### MYOG #### [facility] , Mean Corpuscular HGB Conc 35.4 g/dL Normal 32.5-35.6 [facility] Comment on above: Performed By: #### C K, CBC, CMP #### [address] #### MYOG #### [facility] , Monocytes (Bld) [#/Vol] 0.9 10*3/uL High 0.0-0.8 [facility] Comment on above: Performed By: #### C K, CBC, CMP #### [place] [address] [place] #### MYOG #### [facility] , Monocytes/100 WBC (Bld) 18.01 % Normal 0.00-20.00 [facility] Comment on above: Performed By: #### C K, CBC, CMP #### [place] [address] [place] #### MYOG #### [facility] , Monocytes/100 WBC (Bld) 14.8 % Normal . [facility] Comment on above: Performed By: #### C K, CBC, CMP #### [place] [address] [place] #### MYOG #### [facility] , Neutrophils (Bld) [#/Vol] 4.1 10*3/uL Normal 1.8-7.7 [facility] Comment on above: Performed By: #### C K, CBC, CMP #### [place] [address] [place] #### MYOG #### [facility] , Neutrophils/100 WBC (Bld) 65.2 % Normal . [facility] Comment on above: Performed By: #### C K, CBC, CMP #### [place] [address] [place] #### MYOG #### [facility] , NRBC% 0.0 /100{WBC} Normal 0-0.5 [facility] Comment on above: Performed By: #### C K, CBC, CMP #### [place] [address] [place] #### MYOG #### [facility] , Platelet mean volume (Bld) [Entitic vol] 8.6 fL Normal 6.6-10.1 [facility] Comment on above: Performed By: #### C K, CBC, CMP #### [place] [address] [place] #### MYOG #### [facility] , Platelets (Bld) [#/Vol] 198 10*3/uL Normal 150-450 [facility] Comment on above: Performed By: #### C K, CBC, CMP #### [place] [address] [place] #### MYOG #### [facility] , RBC (Bld) [#/Vol] 4.64 10*6/uL Normal 3.90-5.60 [facility] Comment on above: Performed By: #### C K, CBC, CMP #### [place] [address] [place] #### MYOG #### [facility] , WBC (Bld) [#/Vol] 6.3 10*3/uL Normal 4.1-10.5 [facility] Comment on above: Performed By: #### C K, CBC, CMP #### [place] [address] [place] #### MYOG #### [facility] , Comprehensive Metabolic Pane ana 03-29-2025 Albumin [Mass/Vol] 4.3 g/dL Normal 3.5-5.7 [facility] Comment on above: Performed By: #### C K, CBC, CMP #### [place] [address] [place] #### MYOG #### [facility] , Albumin/Globulin [Mass ratio] 1.6 {ratio} Normal [facility] Comment on above: Performed By: #### C K, CBC, CMP #### [place] [address] [place] #### MYOG #### [facility] , ALP [Catalytic activity/Vol] 43 U/L Normal 34-104 [facility] Comment on above: Performed By: #### C K, CBC, CMP #### [facility] [address] [place] [address] [place] #### MYOG #### [facility] , ALT [Catalytic activity/Vol] 98 U/L High 7-52 [facility] Comment on above: Performed By: #### C K, CBC, CMP #### [facility] [address] [place] [address] [place] #### MYOG #### [facility] , Anion gap [Moles/Vol] 14.3 mmol/L Normal 6.0-15.0 [facility] Comment on above: Performed By: #### C K, CBC, CMP #### [facility] [address] [place] [address] [place] #### MYOG #### [facility] , AST [Catalytic activity/Vol] 81 U/L High 13-39 [facility] Comment on above: Performed By: #### C K, CBC, CMP #### [place] [address] [place] #### MYOG #### [facility] , Bilirubin [Mass/Vol] 0.9 mg/dL Normal 0.3-1.0 [facility] Comment on above: Performed By: #### C K, CBC, CMP #### [place] [address] [place] #### MYOG #### [facility] , Calcium [Mass/Vol] 8.3 mg/dL Low 8.6-10.3 [facility] Comment on above: Performed By: #### C K, CBC, CMP #### [place] [address] [place] #### MYOG #### [facility] , Chloride [Moles/Vol] 95 mmol/L Low 98-107 [facility] Comment on above: Performed By: #### C K, CBC, CMP #### [place] [address] [place] #### MYOG #### [facility] , CO2 [Moles/Vol] 23.2 mmol/L Normal 21.0-31.0 [facility] Comment on above: Performed By: #### C K, CBC, CMP #### [facility] [address] [place] [address] [place] #### MYOG #### [facility] , Creatinine [Mass/Vol] 0.84 mg/dL Normal 0.70-1.30 [facility] Comment on above: Performed By: #### C K, CBC, CMP #### [place] [address] [place] #### MYOG #### [facility] , Creatinine Clr Calc Pharmacy 101.57 Normal [facility] Comment on above: Result Comment: PERF ORMED BY: [place] [address] PATHOLOGIST TECHNICAL SALES REPRESENTATIVES EMEKA GOMEZ M.D. Performed By: #### C K, CBC, CMP #### [place] [address] [place] #### MYOG #### [facility] , GFR/1.73 sq M.predicted MDRD (S/P/Bld) [Vol rate/Area] mL/min/{1.73_m2} Normal [facility] Comment on above: Performed By: #### C K, CBC, CMP #### [place] [address] [place] #### MYOG #### [facility] , Globulin (S) [Mass/Vol] 2.7 g/dL Normal [facility] Comment on above: Performed By: #### C K, CBC, CMP #### [place] [address] [place] #### MYOG #### [facility] , Glucose [Mass/Vol] 129 mg/dL High 70-100 [facility] Comment on above: Result Comment: [place] Glucose Reference Range is dependent on time and content of last meal. Glucose of more than 200 mg/dL in a nonstressed, ambulatory subject supports the diagnosis of Diabetes Mellitus. ADA recommended reference range Performed By: #### C K, CBC, CMP #### [place] [address] [place] #### MYOG #### [facility] , Potassium [Moles/Vol] 4.5 mmol/L Normal 3.5-5.1 [facility] Comment on above: Performed By: #### C K, CBC, CMP #### [facility] [address] [place] [address] [place] #### MYOG #### [facility] , Protein [Mass/Vol] 7.0 g/dL Normal 6.4-8.9 [facility] Comment on above: Performed By: #### C K, CBC, CMP #### [facility] [address] [place] [address] [place] #### MYOG #### [facility] , Sodium [Moles/Vol] 128 mmol/L Low 136-145 [facility] Comment on above: Performed By: #### C K, CBC, CMP #### [facility] [address] [place] [address] [place] #### MYOG #### [facility] , Urea nitrogen [Mass/Vol] 15 mg/dL Normal 7-25 [facility] Comment on above: Performed By: #### C K, CBC, CMP #### [place] [address] [place] #### MYOG #### [facility] , Creatine Kinaseon 03-29-2025 CK [Catalytic activity/Vol] 379 U/L High [address] [facility] Comment on above: Result Comment: PERF ORMED BY: [place] [address] PATHOLOGIST TECHNICAL SALES REPRESENTATIVES EMEKA GOMEZ M.D. Performed By: #### C K, CBC, CMP #### [place] [address] [place] #### MYOG #### [facility] , Creatine kinase [Enzymatic a ctivity/volume] in Serum or PlasmaOrdered By: Trinity Velez on 03-29-2025 CK [Catalytic activity/Vol] Creatine kinase [Enzymatic activity/volume] in Serum or Plasma High 30-223 [facility] Creatinine [Mass/volume] in Serum or PlasmaOrdered By: Trinity Velez on 03-29-2025 Creatinine [Mass/Vol] Creatinine [Mass/v olume] in Serum or Plasma 0.70-1.30 [facility] Eosinophils Auto (Bld) [#/Vo l]Ordered By: Trinity Velez on 03-29-2025 Eosinophils (Bld) [#/Vol] Automated eosinophil count 0.0-0.45 [facility] Eosinophils/100 WBC Auto (Bl d)Ordered By: Trinity Velez on 03-29-2025 Eosinophils/100 WBC (Bld) Automated eosinophil % . [facility] Erythrocyte distribution wid th Auto (RBC) [Ratio]Ordered By: Trinity Velez on 03-29-2025 Erythrocyte distribution width (RBC) [Ratio] Erythrocyte distribution width [Ratio] by Automated count 12.0-14.8 [facility] Globulin Calc (S) [Mass/Vol] Ordered By: Trinity Velez on 03-29-2025 Globulin (S) [Mass/Vol] Serum globulin measurement by calculation (mass/volume) [facility] Glucose [Mass/volume] in Ser um or PlasmaOrdered By: Trinity Velez on 03-29-2025 Glucose [Mass/Vol] Glucose [Mass/volume ] in Serum or Plasma High 70-100 [facility] Comment on above: ADA recommended refe rence rangeRandom Glucose Reference Range is dependent on time and content of last meal. Glucose of more than 200 mg/dL in a nonstressed, ambulatory subject supports the diagnosis of Diabetes Mellitus. Hematocrit Auto (Bld) [Volum e fraction]Ordered By: Trinity Velez on 03-29-2025 Hematocrit (Bld) [Volume fraction] Hematocrit [Volume Fraction] of Blood by Automated count 38.8-50.0 [facility] Hemoglobin [Mass/volume] in BloodOrdered By: Trinity Velez 03-29-2025 Hemoglobin (Bld) [Mass/Vol] Hemoglobin [Mass/volume] in Blood 13.0-17.0 [facility] Leukocytes [#/volume] correc melita for nucleated erythrocytes in Blood by Automated counOrdered By: Trinity Velez on 03-29-2025 WBC corrected for nucl RBC Auto (Bld) [#/Vol] Leukocytes [#/volume] corrected for nucleated erythrocytes in Blood by Automated coun 4.1-10.5 [facility] Lymphocytes Auto (Bld) [#/Vo l]Ordered By: Trinity Velez on 03-29-2025 Lymphocytes (Bld) [#/Vol] Lymphocytes [#/volume] in Blood by Automated count 1.00-4.8 [facility] Lymphocytes/100 WBC Auto (Bl d)Ordered By: Trinity Velez on 03-29-2025 Lymphocytes/100 WBC (Bld) Lymphocytes/100 leukocytes in Blood by Automated count . [facility] MCH Auto (RBC) [Entitic mass ]Ordered By: Trinity Velez on 03-29-2025 MCH (RBC) [Entitic mass] MCH [Entitic mass] by Automated count 27.5-35.2 [facility] MCHC Auto (RBC) [Mass/Vol]Or dered By: Trinity Velez on 03-29-2025 MCHC (RBC) [Mass/Vol] MCHC [Mass/volume] by Automated count 32.5-35.6 [facility] MCV Auto (RBC) [Entitic vol] Ordered By: Trinity Velez on 03-29-2025 MCV (RBC) [Entitic vol] MCV [Entitic volume] by Automated count 83.5-101 [facility] Monocyte distribution width [Entitic volume] in Blood by AutomatedOrdered By: Trinity Velez on 03-29-2025 Monocyte distribution width Auto (Bld) [Entitic vol] Monocyte distribution width [Entitic volume] in Blood by Automated 0.00-20.00 [facility] Monocytes Auto (Bld) [#/Vol] Ordered By: Trinity Velez on 03-29-2025 Monocytes (Bld) [#/Vol] Automated blood monocyte count High 0.0-0.8 [facility] Monocytes/100 WBC Auto (Bld) Ordered By: Trinity Velez on 03-29-2025 Monocytes/100 WBC (Bld) Automated monocyte % . [facility] Myoglobinon 03-29-2025 Myoglobin [Mass/Vol] 289 ng/mL High 28-72 [facility] Comment on above: Result Comment: Perf ormed at: [facility] [address] [id number] Deck Engineer: Isak Schuler PhD, Phone: [phone] PERFORMED BY: [place] [address] PATHOLOGIST TECHNICAL SALES REPRESENTATIVES EMEKA GOMEZ M.D. Performed By: #### C K, CBC, CMP #### [place] [address] [place] #### MYOG #### [facility] , Neutrophils Auto (Bld) [#/Vo l]Ordered By: Trinity Velez on 03-29-2025 Neutrophils (Bld) [#/Vol] Neutrophils [#/volume] in Blood by Automated count 1.8-7.7 [facility] Neutrophils/100 WBC Auto (Bl d)Ordered By: Trinity Velez on 03-29-2025 Neutrophils/100 WBC (Bld) Automated neutrophil % . [facility] No Panel InformationOrdered By: Trinity Velez on 03-29-2025 Estimated GFR (CKD-EPI) > 60.0 mL/Min [facility] Creatinine Clearance (Chem 101.57 [facility] Nucleated erythrocytes [Pres ence] in Blood by Automated countOrdered By: Trinity Velez on 03-29-2025 Nucleated RBC Auto Ql (Bld) Nucleated erythrocytes [Presence] in Blood by Automated count 0-0.5 [facility] Platelet mean volume Auto (B ld) [Entitic vol]Ordered By: Trinity Velez on 03-29-2025 Platelet mean volume (Bld) [Entitic vol] Platelet mean volume [Entitic volume] in Blood by Automated count 6.6-10.1 [facility] Platelets Auto (Bld) [#/Vol] Ordered By: Trinity Velez on 03-29-2025 Platelets (Bld) [#/Vol] Platelets [#/volume] in Blood by Automated count 150-450 [facility] Potassium [Moles/volume] in Serum or PlasmaOrdered By: Trinity Velez on 03-29-2025 Potassium [Moles/Vol] Potassium [Moles/v olume] in Serum or Plasma 3.5-5.1 [facility] Protein [Mass/volume] in Ser um or PlasmaOrdered By: Trinity Velez on 03-29-2025 Protein [Mass/Vol] Protein [Mass/volume ] in Serum or Plasma 6.4-8.9 [facility] RBC Auto (Bld) [#/Vol]Ordere d By: Trinity Velez on 03-29-2025 RBC (Bld) [#/Vol] Erythrocytes [#/volu me] in Blood by Automated count 3.90-5.60 [facility] Serum or plasma albumin/glob ulin mass ratioOrdered By: Trinity Velez on 03-29-2025 Albumin/Globulin [Mass ratio] Serum or plasma albumin/globulin mass ratio [facility] Serum or plasma anion gap de terminationOrdered By: Trinity Velez on 03-29-2025 Anion gap [Moles/Vol] Serum or plasma an ion gap determination 6.0-15.0 [facility] Sodium [Moles/volume] in Ser um or PlasmaOrdered By: Trinity Velez on 03-29-2025 Sodium [Moles/Vol] Sodium [Moles/volume ] in Serum or Plasma Low 136-145 [facility] Urea nitrogen [Mass/volume] in Serum or PlasmaOrdered By: Trinity Velez on 03-29-2025 Urea nitrogen [Mass/Vol] Urea nitrogen [Mass/volume] in Serum or Plasma 7-25 [facility] WBC Auto (Bld) [#/Vol]Ordere d By: Trinity Velez on 03-29-2025 WBC (Bld) [#/Vol] Leukocytes [#/volume ] in Blood by Automated count 4.1-10.5 [facility] X-ray reportOrdered By: Jovanna Manzanares on 03-29-2025 Study report [facility] [place] [address] XRay Report Signed Patient: Remedios Magaña MR#: [id number] : 1955 Acct:[id number] Age/Sex: 69 / M ADM Date: 5 Loc: ER Room: Type: [facility] ER Attending Dr: Copies to: Trinity [...] Manzanares M.D. 03/30/2025 8:57 AM Dictation Location: [facility]- Transcribed By: [facility] 03/30/25 0857 Dictated By: Jovanna Manzanares II, MD 03/30/25 0856 Signed By: 03/30/25 0857 [facility] Work Phone: [facility] US ABDOMINAL AORTA [facility]EU [facility] AAA SCREENINGon 03-18-2025 [facility] US ABDOMINAL AORTA ANEURYSM AAA SCREENING [address], [address] [place] [address] Vascular Lab Report [facility] US ABDOMINAL AORTA ANEURYSM AAA SCREENING Patient Name: REMEDIOSCLAUS MEDLEYUS Black Physician: [id number] Marcus Recinos MD, [facility] Study Date: 03/18/2025 Ordering Provider: [id number] MARCUS RECINOS MRN/PID: [id number] Fellow: Technologist: Yadira Atkins RD, [facility] Date of /Age: 12 1955 / 69 years Technologist 2: Gender: M Admission Status: Outpatient Location Performed: [facility] Diagnosis/ICD: Essential primary hypertension-I10; Personal history of tobacco use-Z87.891 Indication: Hyperlipidemia, Atrial Flutter, COPD CPT Codes: 04969 Ultrasound, abdominal aorta, real time with image documentation, screening study for (AAA) CONCLUSIONS: Imaging & Doppler Findings: AORTA AP Lateral Distal 2.53 cm 2.44 cm [id number] Marcus Recinos MD, FACC Final Normal [facility] ECG 12 Leadon 01-06-2025 ECG revealed sinus bradycardia with first-degree AV block, left axis deviation, 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, abnormal ECG [facility] Work Phone: Physician Referralon 024 Physician Referral [phone] [id number] Normal [facility] ECG 12 Leadon 12-04-2023 ECG revealed normal sinus rhythm with first-degree AV block and left axis deviation [facility] Work Phone: GLYCOHEMOGLOBIN A1Con 2022 ADA RECOMMENDATION SEE BELOW Normal [facility] Comment on above: Result Comment: ADA RECOMMENDED LIMIT 4.0 - 6.0 ADA THERAPEUTIC TARGET < 7.0 ACTION SUGGESTED > 7.0 Performed By: #### A 1C #### [facility] [address] [place] [address] Dr. Igor Hayes Glucose [Mass/Vol] 137 mg/dL Normal [facility] Comment on above: Performed By: #### A 1C #### [facility] [address] [address] [address] Igor Hayes HbA1c (Bld) [Mass fraction] 6.4 % Critically high 4.5-6.2 [facility] Comment on above: Performed By: #### A 1C #### [facility] [address] [place] [address] Dr. Igor Hayes LIPID PROFILEon 03-08-2023 CHOL-HDL RATIO NORM SEE BELOW Normal [facility] Comment on above: Result Comment: 3.3 - 4.4 LOW RISK 4.4 - 7.1 AVERAGE RISK 7.1 - 11.0 MODERATE RISK >11.0 HIGH RISK Performed By: #### A 1C #### [facility] [address] [address] [address] Igor Hayes Cholesterol [Mass/Vol] 181 mg/dL Normal <=200 [facility] Comment on above: Performed By: #### A 1C #### [facility] [address] [address] [address] Igor Hayes Cholesterol in HDL [Mass/Vol] 64 mg/dL Critically high 40-60 [facility] Comment on above: Performed By: #### A 1C #### [facility] [address] [address] [address] Igor Hayes Cholesterol in LDL [Mass/Vol] 99.2 mg/dL Normal [facility] Comment on above: Performed By: #### A 1C #### [facility] [address] [address] [address] Igor Hayes Cholesterol.total/Chol esterol in HDL [Mass ratio] 2.8 {ratio} Normal [facility] Comment on above: Performed By: #### A 1C #### [facility] [address] [address] [address] Igor Hayes HDL NORMAL > or = 60 mg/dl - LO W CARDIOVASCULAR RISK <40 mg/dl - HIGH CARDIOVASCULAR RISK Normal [facility] Comment on above: Performed By: #### A 1C #### [facility] [address] [address] [address] Igor Hayes LDL CALC NORMAL SEE BELOW Normal [facility] Comment on above: Result Comment: <100 mg/dl OPTIMAL 100 - 129 mg/dl NEAR OR ABOVE OPTIMAL 130 - 159 mg/dl BORDERLINE HIGH 160 - 189 mg/dl HIGH >190 mg/dl VERY HIGH Performed By: #### A 1C #### [facility] [address] [address] [address] Igor Hayes Triglyceride [Mass/Vol] 89 mg/dL Normal <=150 [facility] Comment on above: Performed By: #### A 1C #### [facility] [address] [address] [address] Igor Hayes VLDL CALC 17.8 mg/dL Normal [facility] Comment on above: Performed By: #### A 1C #### [facility] [address] [place] [address] Dr. Igor Hayes INFLUENZA A AND B AGon 02-01 INFLUANEGH SEE BELOW Normal [facility] Comment on above: Result Comment: Nega tive for Flu A protein angiten. Infection due to Flu A cannot be ruled out. Flu A angiten in the sample may be below the detection limit of the test. Performed By: #### O BSCRN #### [facility] [address] [place] [address] Dr. Igor Hayes INFLUBNEGH SEE BELOW Normal [facility] Comment on above: Result Comment: Nega tive for Flu B protein antigen. Infection due to Flu B cannot be ruled out. Flu B antigen in the sample may be below the detection limit of the test. Performed By: #### O BSCRN #### [facility] [address] [place] [address] Dr. Igor Hayes INFLUENZA A AG Negative Normal NEGATIVE SEE COMMENT [facility] Comment on above: Performed By: #### O BSCRN #### [facility] [address] [place] [address] Dr. Igor Hayes INFLUENZA B AG Negative Normal NEGATIVE SEE COMMENT [facility] Comment on above: Performed By: #### O BSCRN #### [facility] [address] [place] [address] Dr. Igro Hayes SYMPTOMATIC COVID-19 ANTIGEN on 02-01-2023 EUA Statement SEE BELOW Normal [facility] Comment on above: Result Comment: [...] sooner. Performed By: #### A 1C #### [facility] [address] [place] [address] Dr. Igor Hayes SARS-CoV-2 (COVID-19) RNA VERONIQUE+probe Ql (Unsp spec) Positive Abnormal NEGATIVE [facility] Comment on above: Performed By: #### A 1C #### [facility] [address] [place] [address] Dr. Igor Hayes HEMOGLOBINon 01-10-2023 Hemoglobin (Bld) [Mass/Vol] 14.4 g/dL Normal 14.0-18.0 [facility] Comment on above: Performed By: #### H GB #### [facility] [address] [place] [address] Dr. Igor Hayes PROF CHEM 8 (BAS METB)on Anion gap [Moles/Vol] 8.4 mmol/L Normal [facility] Comment on above: Performed By: #### O BSCRN #### [facility] [address] [place] [address] Dr. Igor Hayes Calcium [Mass/Vol] 8.9 mg/dL Normal 8.5-10.1 [facility] Comment on above: Performed By: #### O BSCRN #### [facility] [address] [place] [address] Dr. Igor Hayes Chloride [Moles/Vol] 103 mmol/L Normal 98-107 [facility] Comment on above: Performed By: #### O BSCRN #### [facility] [address] [place] [address] Dr. Igor Hayes CO2 [Moles/Vol] 31.2 mmol/L Normal 21.0-32.0 [facility] Comment on above: Performed By: #### O BSCRN #### [facility] [address] [place] [address] Dr. Igor Hayes Creatinine [Mass/Vol] 1.02 mg/dL Normal 0.70-1.30 [facility] Comment on above: Performed By: #### O BSCRN #### [facility] [address] [address] [address] Igor Hayes EGFR-AF TUNISIAN >60 Normal >=60 [facility] Comment on above: Performed By: #### O BSCRN #### [facility] [address] [address] [address] Igor Hayes EGFR-NON AF TUNISIAN >60 Normal >=60 [facility] Comment on above: Performed By: #### O BSCRN #### [facility] [address] [address] [address] Igor Hayes Glucose [Mass/Vol] 133 mg/dL Critically high 74-106 [facility] Comment on above: Performed By: #### O BSCRN #### [facility] [address] [place] [address] Dr. Igor Hayes Potassium [Moles/Vol] 4.6 mmol/L Normal 3.5-5.1 [facility] Comment on above: Performed By: #### O BSCRN #### [facility] [address] [address] [address] Igor Hayes Sodium [Moles/Vol] 138 mmol/L Normal 136-145 [facility] Comment on above: Performed By: #### O BSCRN #### [facility] [address] [address] [address] Igor Hayes Urea nitrogen [Mass/Vol] 17.0 mg/dL Normal 7.0-18.0 [facility] Comment on above: Performed By: #### O BSCRN #### [facility] [address] [address] [address] Igor Hayes Urea nitrogen/Creatinine [Mass ratio] 16.7 mg/mg Normal [facility] Comment on above: Performed By: #### O BSCRN #### [facility] [address] [address] [address] Igor Hayes SGOTon 01-10-2023 AST [Catalytic activity/Vol] 36 U/L Normal 15-37 [facility] Comment on above: Performed By: #### O BSCRN #### [facility] [address] [place], [place] [address] Dr. Igor Hayes TSHon 01-10-2023 TSH 4.230 uIU/mL Critically high 0.358-3.74 0 [facility] Comment on above: Performed By: #### O BSCRN #### [facility] [id number] Igor Hayes XR CHEST 2 Von [...] by: DEE BARTON Date: 2023-01-10 13:02 Normal [facility] Prothrombin Time INRon 01-01 INR Coag (PPP) [Relative time] 2.9 {INR} [employer] Other Prothrombin Time INR [facility] [employer] Other Prothrombin Time INRon 12-10 INR Coag (PPP) [Relative time] 2.7 {INR} [employer] Other Prothrombin Time INR [facility] [employer] Other Prothrombin Time INRon 11-26 INR Coag (PPP) [Relative time] 2.6 {INR} [employer] Other Prothrombin Time INR [facility] [employer] Other Prothrombin Time INRon 11-15 INR Coag (PPP) [Relative time] 3.2 {INR} [employer] Other Prothrombin Time INR [facility] [employer] Other LIPID PROFILEon 11-14-2022 CHOL-HDL RATIO NORM SEE BELOW Normal [facility] Comment on above: Result Comment: 3.3 - 4.4 LOW RISK 4.4 - 7.1 AVERAGE RISK 7.1 - 11.0 MODERATE RISK >11.0 HIGH RISK Performed By: #### O BSCRN #### [facility] [address] [address] [address] Igor Hayes Cholesterol [Mass/Vol] 186 mg/dL Normal <=200 [facility] Comment on above: Performed By: #### O BSCRN #### [facility] [address] [address] [address] Igor Hayes Cholesterol in HDL [Mass/Vol] 64 mg/dL Critically high 40-60 [facility] Comment on above: Performed By: #### O BSCRN #### [facility] [address] [address] [address] Igor Hayes Cholesterol in LDL [Mass/Vol] 99.0 mg/dL Normal [facility] Comment on above: Performed By: #### O BSCRN #### [facility] [address] [address] [address] Igor Hayes Cholesterol.total/Chol esterol in HDL [Mass ratio] 2.9 {ratio} Normal [facility] Comment on above: Performed By: #### O BSCRN #### [facility] [address] [address] [address] Igor Hayes HDL NORMAL > or = 60 mg/dl - LO W CARDIOVASCULAR RISK <40 mg/dl - HIGH CARDIOVASCULAR RISK Normal [facility] Comment on above: Performed By: #### O BSCRN #### [facility] [address] [address] [address] Igor Hayes LDL CALC NORMAL SEE BELOW Normal [facility] Comment on above: Result Comment: <100 mg/dl OPTIMAL 100 - 129 mg/dl NEAR OR ABOVE OPTIMAL 130 - 159 mg/dl BORDERLINE HIGH 160 - 189 mg/dl HIGH >190 mg/dl VERY HIGH Performed By: #### O BSCRN #### [facility] [address] [address] [address] Igor Hayes Triglyceride [Mass/Vol] 115 mg/dL Normal <=150 [facility] Comment on above: Performed By: #### O BSCRN #### [facility] [address] [address] [address] Igor Hayes VLDL CALC 23.0 mg/dL Normal [facility] Comment on above: Performed By: #### O BSCRN #### [facility] [address] [address] [address] Igor Hayes Tobacco Screening.on 023 Adult depression screening assessment No [facility] 250 DO Work Phone: Fall risk assessment a) No falls within the last year [facility] 250 DO Work Phone: Tobacco use status [facility] b) No [facility] Work Phone: AMMONIAon 11-02-2022 Ammonia (P) [Moles/Vol] 12 umol/L Normal -32 [facility] Comment on above: Performed By: #### A 1C #### [facility] [address] [place] [address] Dr. Igor Hayes PROF 14(COMP METB)on 022 Albumin [Mass/Vol] 3.9 g/dL Normal 3.4-5.0 [facility] Comment on above: Performed By: #### A 1C #### [facility] [address] [place] [address] Dr. Igor Hayes Albumin/Globulin [Mass ratio] 1.1 {ratio} Normal [facility] Comment on above: Performed By: #### A 1C #### [facility] [address] [place] [address] Dr. Igor Hayes ALP [Catalytic activity/Vol] 48 U/L Normal 46-116 [facility] Comment on above: Performed By: #### A 1C #### [facility] [address] [place] [address] Dr. Igor Hayes ALT [Catalytic activity/Vol] 70 U/L Critically high 16-63 [facility] [facility] Comment on above: Performed By: #### A 1C #### [facility] [address] [address] [address] Igor Hayes Anion gap [Moles/Vol] 13.5 mmol/L Normal [facility] Comment on above: Performed By: #### A 1C #### [facility] [address] [address] [address] Igor Hayes AST [Catalytic activity/Vol] 41 U/L Critically high 15-37 [facility] Comment on above: Performed By: #### A 1C #### [facility] [address] [address] [address] Igor Hayes Bilirubin [Mass/Vol] 0.6 mg/dL Normal 0.2-1.0 [facility] Comment on above: Performed By: #### A 1C #### [facility] [address] [place] [address] Dr. Igor Hayes Calcium [Mass/Vol] 9.0 mg/dL Normal 8.5-10.1 [facility] Comment on above: Performed By: #### A 1C #### [facility] [address] [place] [address] Dr. Igor Hayes Chloride [Moles/Vol] 102 mmol/L Normal 98-107 [facility] Comment on above: Performed By: #### A 1C #### [facility] [address] [place] [address] Dr. Igor Hayes CO2 [Moles/Vol] 28.9 mmol/L Normal 21.0-32.0 [facility] Comment on above: Performed By: #### A 1C #### [facility] [address] [place] [address] Dr. Igor Hayes Creatinine [Mass/Vol] 1.14 mg/dL Normal 0.70-1.30 [facility] Comment on above: Performed By: #### A 1C #### [facility] [address] [place] [address] Dr. Igor Hayes EGFR-AF TUNISIAN >60 Normal >=60 [facility] Comment on above: Performed By: #### A 1C #### [facility] [address] [place] [address] Dr. Igor Hayes EGFR-NON AF TUNISIAN >60 Normal >=60 [facility] Comment on above: Performed By: #### A 1C #### [facility] [address] [place] [address] Dr. Igor Hayes Globulin (S) [Mass/Vol] 3.7 g/dL Normal [facility] Comment on above: Performed By: #### A 1C #### [facility] [address] [address] [address] Igor Hayes Glucose [Mass/Vol] 166 mg/dL Critically high 74-106 [facility] Comment on above: Performed By: #### A 1C #### [facility] [address] [place] [address] Dr. Igor Hayes Potassium [Moles/Vol] 4.4 mmol/L Normal 3.5-5.1 [facility] Comment on above: Performed By: #### A 1C #### [facility] [address] [place] [address] Dr. Igor Hayes Protein [Mass/Vol] 7.6 g/dL Normal 6.4-8.2 [facility] Comment on above: Performed By: #### A 1C #### [facility] [address] [place] [address] Dr. Igor Hayes Sodium [Moles/Vol] 140 mmol/L Normal 136-145 [facility] Comment on above: Performed By: #### A 1C #### [facility] [address] [place] [address] Dr. Igor Hayes Urea nitrogen [Mass/Vol] 18.0 mg/dL Normal 7.0-18.0 [facility] Comment on above: Performed By: #### A 1C #### [facility] [address] [place] [address] Dr. Igor Hayes Urea nitrogen/Creatinine [Mass ratio] 15.8 mg/mg Normal [facility] Comment on above: Performed By: #### A 1C #### [facility] [address] [place] [address] Dr. Igor Hayes HEMOGLOBINon 10-22-2022 Hemoglobin (Bld) [Mass/Vol] 15.3 g/dL Normal 14.0-18.0 [facility] Comment on above: Performed By: #### A 1C #### [facility] [address] [place] [address] Dr. Igor Hayes PROF CHEM 8 (BAS METB)on Anion gap [Moles/Vol] 12.9 mmol/L Normal [facility] Comment on above: Performed By: #### A ST, BMP, TSH #### [facility] [address] [place] [address] Dr. Igor Hayes Calcium [Mass/Vol] 9.2 mg/dL Normal 8.5-10.1 [facility] Comment on above: Performed By: #### A ST, BMP, TSH #### [facility] [address] [place] [address] Dr. Igor Hayes Chloride [Moles/Vol] 103 mmol/L Normal 98-107 [facility] Comment on above: Performed By: #### A ST, BMP, TSH #### [facility] [address] [place] [address] Dr. Igor Hayes CO2 [Moles/Vol] 29.7 mmol/L Normal 21.0-32.0 [facility] Comment on above: Performed By: #### A ST, BMP, TSH #### [facility] [address] [place] [address] Dr. Igor Hayes Creatinine [Mass/Vol] 1.16 mg/dL Normal 0.70-1.30 [facility] Comment on above: Performed By: #### A ST, BMP, TSH #### [facility] [address] [place] [address] Dr. Igor Hayes EGFR-AF TUNISIAN >60 Normal >=60 [facility] Comment on above: Performed By: #### A ST, BMP, TSH #### [facility] [address] [place] [address] Dr. Igor Hayes EGFR-NON AF TUNISIAN >60 Normal >=60 [facility] Comment on above: Performed By: #### A ST, BMP, TSH #### [facility] [address] [address] [address] Igor Hayes Glucose [Mass/Vol] 125 mg/dL Critically high 74-106 [facility] Comment on above: Performed By: #### A ST, BMP, TSH #### [facility] [address] [address] [address] Igor Hayes Potassium [Moles/Vol] 4.6 mmol/L Normal 3.5-5.1 [facility] Comment on above: Performed By: #### A ST, BMP, TSH #### [facility] [address] [address] [address] Igor Hayes Sodium [Moles/Vol] 141 mmol/L Normal 136-145 [facility] Comment on above: Performed By: #### A ST, BMP, TSH #### [facility] [address] [place] [address] Dr. Igor Hayes Urea nitrogen [Mass/Vol] 17.0 mg/dL Normal 7.0-18.0 [facility] Comment on above: Performed By: #### A ST, BMP, TSH #### [facility] [address] [place] [address] Dr. Igor Hayes Urea nitrogen/Creatinine [Mass ratio] 14.7 mg/mg Normal [facility] Comment on above: Performed By: #### A ST, BMP, TSH #### [facility] [address] [address] [address] Igor Hayes SGOTon 10-22-2022 AST [Catalytic activity/Vol] 49 U/L Critically high 15-37 [facility] Comment on above: Performed By: #### A ST, BMP, TSH #### [facility] [address] [place] [address] Dr. Igor Hayes TSHon 10-22-2022 TSH 4.171 uIU/mL Critically high 0.358-3.74 0 [facility] Comment on above: Performed By: #### A ST, BMP, TSH #### [facility] [address] [address] [address] gIor Hayes US SINGLE QUAD RT UPPERon US [...] STANFORD GARCÍA Date: 2022-10-22 20:43 Normal [facility] XR CHEST 2 Von 10-22-2022 XR [...] STANFORD GARCÍA Date: 2022-10-22 20:38 Normal [facility] INSULINon 10-10-2022 Insulin 19.8 uIU/mL Normal 2.6-24.9 [facility] Comment on above: Performed By: #### A 1C #### [facility] [address] [address] [address] Igor Hayes CBC AUTO DIFFon 10-09-2022 BASO # 0.1 103/ul Normal 0.0-0.1 [facility] Comment on above: Performed By: #### A 1C #### [facility] [address] [address] [address] Igor Hayes Basophils/100 WBC (Bld) 1.7 % Normal 0.2-2.0 [facility] Comment on above: Performed By: #### A 1C #### [facility] [address] [place] [address] Dr. Igor Hayes EO # 0.2 103/ul Normal 0.0-0.7 [facility] Comment on above: Performed By: #### A 1C #### [facility] [address] [place] [address] Dr. Igor Hayes Eosinophils/100 WBC (Bld) 3.1 % Normal 0.9-7.0 [facility] Comment on above: Performed By: #### A 1C #### [facility] [address] [place] [address] Dr. Igor Hayes Erythrocyte distribution width (RBC) [Ratio] 12.9 % Normal 11.0-15.0 [facility] Comment on above: Performed By: #### A 1C #### [facility] [address] [place] [address] Dr. Igor Hayes Hematocrit (Bld) [Volume fraction] 45.5 % Normal 42.0-54.0 [facility] Comment on above: Performed By: #### A 1C #### [facility] [address] [place] [address] Dr. Igor Hayes Hemoglobin (Bld) [Mass/Vol] 15.1 g/dL Normal 14.0-18.0 [facility] Comment on above: Performed By: #### A 1C #### [facility] [address] [place] [address] Dr. Igor Hayes IG # 0.01 10e3/ul Normal 0.00-0.03 [facility] Comment on above: Performed By: #### A 1C #### [facility] [address] [place] [address] Dr. Igor Hayes IG % 0.2 % Normal 0.0-0.5 [facility] Comment on above: Performed By: #### A 1C #### [facility] [address] [place] [address] Dr. Igor Hayes LYMPH # 1.2 103/ul Normal 1.2-3.8 [facility] Comment on above: Performed By: #### A 1C #### [facility] [address] [place] [address] Dr. Igor Hayes Lymphocytes/100 WBC (Bld) 23.9 % Normal 20.5-60.0 [facility] Comment on above: Performed By: #### A 1C #### [facility] [address] [place] [address] Dr. Igor Hayes MANUAL DIFF REQ NO Normal [facility] Comment on above: Performed By: #### A 1C #### [facility] [address] [place] [address] Dr. Igor Hayes MCH (RBC) [Entitic mass] 29.3 pg Normal 25.9-34.0 [facility] Comment on above: Performed By: #### A 1C #### [facility] [address] [place] [address] Dr. Igor Hayes MCHC (RBC) [Mass/Vol] 33.2 g/dL Normal 29.9-35.2 [facility] Comment on above: Performed By: #### A 1C #### [facility] [address] [place] [address] Dr. Igor Hayes MCV (RBC) [Entitic vol] 88.2 fL Normal 80.0-94.0 [facility] Comment on above: Performed By: #### A 1C #### [facility] [address] [place] [address] Dr. Igor Hayes MONO # 0.6 103/ul Normal 0.3-0.8 [facility] Comment on above: Performed By: #### A 1C #### [facility] [address] [place] [address] Dr. Igor Hayes Monocytes/100 WBC (Bld) 12.3 % Critically high 1.7-12.0 [facility] Comment on above: Performed By: #### A 1C #### [facility] [address] [place] [address] Dr. Igor Hayes NEUT # 3.1 103/ul Normal 1.4-6.5 [facility] Comment on above: Performed By: #### A 1C #### [facility] [address] [place] [address] Dr. Igor Hayes Neutrophils/100 WBC (Bld) 58.8 % Normal 43.0-75.0 [facility] Comment on above: Performed By: #### A 1C #### [facility] [address] [place] [address] Dr. Igor Hayes Platelet mean volume (Bld) [Entitic vol] 10.0 fL Normal 9.5-13.5 [facility] Comment on above: Performed By: #### A 1C #### [facility] [address] [place] [address] Dr. Igor Hayes PLT 234 103/ul Normal 150-450 [facility] Comment on above: Performed By: #### A 1C #### [facility] [address] [place] [address] Dr. Igor Hayes RBC 5.16 106/ul Normal 4.70-6.10 [facility] Comment on above: Performed By: #### A 1C #### [facility] [address] [place] [address] Dr. Igor Hayes WBC 5.2 103/ul Normal 4.0-11.0 [facility] Comment on above: Performed By: #### A 1C #### [facility] [address] [place] [address] Dr. Igor Hayes GLYCOHEMOGLOBIN A1Con 2021 ADA RECOMMENDATION SEE BELOW Normal [facility] Comment on above: Result Comment: ADA RECOMMENDED LIMIT 4.0 - 6.0 ADA THERAPEUTIC TARGET < 7.0 ACTION SUGGESTED > 7.0 Performed By: #### A 1C #### [facility] [address] [place] [address] Dr. Igor Hayes Glucose [Mass/Vol] 123 mg/dL Normal [facility] Comment on above: Performed By: #### A 1C #### [facility] [address] [place] [address] Dr. Igor Hayes HbA1c (Bld) [Mass fraction] 5.9 % Normal 4.5-6.2 [facility] Comment on above: Performed By: #### A 1C #### [facility] [address] [address] [address] Igor RAMACHANDRAN BLD IMMUNO SCREENon 0 OCCULT BLOOD Negative Normal NEGATIVE [facility] Comment on above: Performed By: #### O BSCRN #### [facility] [address] [place] [address] Dr. Igor Hayes PROF 14(COMP METB)on 022 Albumin [Mass/Vol] 3.9 g/dL Normal 3.4-5.0 [facility] Comment on above: Performed By: #### U THUY, CMP #### [facility] [address] [place] [address] Dr. Igor Hayes Albumin/Globulin [Mass ratio] 1.0 {ratio} Normal [facility] Comment on above: Performed By: #### U THUY, CMP #### [facility] [address] [place] [address] Dr. Igor Hayes ALP [Catalytic activity/Vol] 45 U/L Critically low 46-116 [facility] Comment on above: Performed By: #### U THUY, CMP #### [facility] [address] [place] [address] Dr. Igor Hayes ALT [Catalytic activity/Vol] 83 U/L Critically high 16-63 [facility] Comment on above: Performed By: #### U THUY, CMP #### [facility] [address] [place] [address] Dr. Igor Hayes Anion gap [Moles/Vol] 11.6 mmol/L Normal [facility] Comment on above: Performed By: #### U THUY, CMP #### [facility] [address] [place] [address] Dr. Igor Hayes AST [Catalytic activity/Vol] 44 U/L Critically high 15-37 [facility] Comment on above: Performed By: #### U THUY, CMP #### [facility] [address] [place] [address] Dr. Igor Hayes Bilirubin [Mass/Vol] 0.7 mg/dL Normal 0.2-1.0 [facility] Comment on above: Performed By: #### U THUY, CMP #### [facility] [address] [address] [address] Igor Hayes Calcium [Mass/Vol] 8.8 mg/dL Normal 8.5-10.1 [facility] Comment on above: Performed By: #### U THUY, CMP #### [facility] [address] [address] [address] Igor Hayes Chloride [Moles/Vol] 102 mmol/L Normal 98-107 [facility] Comment on above: Performed By: #### U THUY, CMP #### [facility] [address] [address] [address] Igor Hayes CO2 [Moles/Vol] 29.1 mmol/L Normal 21.0-32.0 [facility] Comment on above: Performed By: #### U THUY, CMP #### [facility] [address] [place] [address] Dr. Igor Hayes Creatinine [Mass/Vol] 1.02 mg/dL Normal 0.70-1.30 [facility] Comment on above: Performed By: #### U THUY, CMP #### [facility] [address] [place] [address] Dr. Igor Hayes EGFR-AF TUNISIAN >60 Normal >=60 [facility] Comment on above: Performed By: #### U THUY, CMP #### [facility] [address] [place] [address] Dr. Igor Hayes EGFR-NON AF TUNISIAN >60 Normal >=60 [facility] Comment on above: Performed By: #### U THUY, CMP #### [facility] [address] [place] [address] Dr. Igor Hayes Globulin (S) [Mass/Vol] 3.9 g/dL Normal [facility] Comment on above: Performed By: #### U THUY, CMP #### [facility] [address] [place] [address] Dr. Igor Hayes Glucose [Mass/Vol] 132 mg/dL Critically high 74-106 [facility] Comment on above: Performed By: #### U THUY, CMP #### [facility] [address] [address] [address] Igor Hayes Potassium [Moles/Vol] 4.7 mmol/L Normal 3.5-5.1 [facility] Comment on above: Performed By: #### U THUY, CMP #### [facility] [address] [place] [address] Dr. Igor Hayes Protein [Mass/Vol] 7.8 g/dL Normal 6.4-8.2 [facility] Comment on above: Performed By: #### U THUY, CMP #### [facility] [address] [place] [address] Dr. Igor Hayes Sodium [Moles/Vol] 138 mmol/L Normal 136-145 [facility] Comment on above: Performed By: #### U THUY, CMP #### [facility] [address] [place] [address] Dr. Igor Hayes Urea nitrogen [Mass/Vol] 16.0 mg/dL Normal 7.0-18.0 [facility] Comment on above: Performed By: #### U THUY, CMP #### [facility] [address] [place] [address] Dr. Igor Hayes Urea nitrogen/Creatinine [Mass ratio] 15.7 mg/mg Normal [facility] Comment on above: Performed By: #### U THUY, CMP #### [facility] [address] [place] [address] Dr. Igor Hayes URIC ACID SERUMon 10-09-2022 Urate [Mass/Vol] 4.9 mg/dL Normal 3.5-7.2 [facility] Comment on above: Performed By: #### U THUY, CMP #### [facility] [address] [place] [address] Dr. Igor Hayes No Panel Informationon 07-30 13.1\S\13.1 Normal 6.0-15.[address] [facility] DO Work Phone: 9.4\S\9.4 Normal 8.2-10.[address] [facility] 250 DO Work Phone: 27.5\S\27.5 Normal 22.0-30.[address] [facility] Katie mcmahon 250 DO Work Phone: [phone] 101\S\101 Normal 95-[address] [facility] Katie mcmahon 250 DO Work Phone: [phone] 4.6\S\4.6 Normal 3.5-5.[address] [facility] Katie mcmahon 250 DO Work Phone: [phone] 137\S\137 Normal 136-[address] [facility] Katie mcmahon 250 DO Work Phone: [phone] > [address] [facility] Katie mcmahon 250 DO Work Phone: Comment on above: GFR estimated refere nce range: According to KDOQI guidelines, <60 ml/min/1.73m2 is sufficient to diagnose a patient with chronic kidney disease. 1.03\S\1.03 Normal 0.64-1.[address] [facility] Katie mcmahon 250 DO Work Phone: [phone] 15\S\15 Normal 9-[address] [facility] Katie mcmahon 250 DO Work Phone: [phone] 111\S\111 above high threshold 70-[address] [facility] Katie mcmahon 250 DO Work Phone: Comment on above: Random Glucose Refer ence Range is dependent on time and content of last meal. Glucose of more than 200 mg/dL in a nonstressed, ambulatory subject supports the diagnosis of Diabetes Mellitus. ADA recommended reference range 44\S\44 above high threshold 10-[address] [facility] Katie mcmahon 250 DO Work Phone: [phone] 3.34\S\3.34 Normal 0.45-5.33 [facility] DO Work Phone: Comment on above: PERFORMED BY:[facility] [place], [place] [id number] MEDICAL DIRECTORSTEVEN NASH M.D. Radiologyon 07-30-2022 XR Chest [address] [facility] 250 DO Work Phone: Creatinine and Glomerular fi ltration rate.predicted panel (S/P/Bld)Ordered By: Marcus Recinos on 04-26-2022 Creatinine [Mass/Vol] 1.05 mg/dL 0.64-1.27 [facility] Estimated glomerular filtrat ion rate (GFR) non- AmericanOrdered By: Marcus Recinos on 04-26-2022 GFR/1.73 sq M.predicted among non-blacks MDRD (S/P/Bld) [Vol rate/Area] > 60 mL/Min [facility] No Panel InformationOrdered By: Marcus Recinos on 04-26-2022 Estimated GFR () > 60 mL/Min [facility] Comment on above: GFR estimated refere nce range: According to KDOQI guidelines, <60 ml/min/1.73m2 is sufficient to diagnose a patient with chronic kidney disease. Pharmacy Creatinine Clearance (Chem N/A [facility] No Panel Informationon 04-26 9.5\S\9.5 Normal 8.2-10.[address] [facility] 250 DO Work Phone: 26.8\S\26.8 Normal 22.0-30.[address] [facility] 250 DO Work Phone: 101\S\101 Normal 95-[address] [facility] 250 DO Work Phone: 4.9\S\4.9 Normal 3.5-5.[address] [facility] 250 DO Work Phone: 138\S\138 Normal 136-[address] [facility] 250 DO Work Phone: > [address] [facility] 250 DO Work Phone: Comment on above: GFR estimated refere nce range: According to KDOQI guidelines, <60 ml/min/1.73m2 is sufficient to diagnose a patient with chronic kidney disease. 1.05\S\1.05 Normal 0.64-1.27 [facility] DO Work Phone: 16\S\16 Normal 9-23 [facility] Work Phone: 123\S\123 above high threshold 70-100 [facility] DO Work Phone: Comment on above: Random Glucose Refer ence Range is dependent on time and content of last meal. Glucose of more than 200 mg/dL in a nonstressed, ambulatory subject supports the diagnosis of Diabetes Mellitus. ADA recommended reference range 46\S\46 above high threshold 10-42 [facility] 250 DO Work Phone: 4.75\S\4.75 Normal 0.45-5.33 [facility] 250 DO Work Phone: Comment on above: PERFORMED BY:[address], [place] [id number] MEDICAL DIRECTORSTEVEN NASH M.D. Radiologyon 04-26-2022 XR Chest 2 Views Normal [facility] DO Work Phone: Serum or plasma aspartate am inotransferase measurement (enzymatic activity/volume)Ordered By: Marcus Recinos on 04-26-2022 AST [Catalytic activity/Vol] 46 U/L 10-42 [facility] Serum or plasma calcium tiera urement (mass/volume)Ordered By: Marcus Recinos on 04-26-2022 Calcium [Mass/Vol] 9.5 mg/dL 8.2-10.2 [facility] Serum or plasma chloride marly surement (moles/volume)Ordered By: Marcus Recinos on 04-26-2022 Chloride [Moles/Vol] 101 mmol/L 95-114 [facility] Serum or plasma glucose tiera urement (mass/volume)Ordered By: Marcus Recinos on 04-26-2022 Glucose [Mass/Vol] 123 mg/dL 70-100 [facility] Comment on above: ADA recommended refe rence range Random Glucose Reference Range is dependent on time and content of last meal. Glucose of more than 200 mg/dL in a nonstressed, ambulatory subject supports the diagnosis of Diabetes Mellitus. Serum or plasma potassium me asurement (moles/volume)Ordered By: Marcus Recinos on 04-26-2022 Potassium [Moles/Vol] 4.9 mmol/L 3.5-5.1 [facility] Serum or plasma sodium measu rement (moles/volume)Ordered By: Marcus Recinos on 04-26-2022 Sodium [Moles/Vol] 138 mmol/L 136-146 [facility] Serum or plasma total carbon dioxide measurement (moles/volume)Ordered By: Marcus Recinos on 04-26-2022 CO2 [Moles/Vol] 26.8 mmol/L 22.0-30.0 [facility] Serum or plasma urea nitroge n measurement (mass/volume)Ordered By: Marcus Recinos on 04-26-2022 Urea nitrogen [Mass/Vol] 16 mg/dL 07-27 [facility] TSH DL <= 0.005 mIU/L QnOrde red By: Marcus Recinos on 04-26-2022 TSH Qn 4.75 m[IU]/L 0.45-5.33 [facility] Office Visit (Cardiology)on 04-24-2022 Follow-up visit [...] in adult Healthy Weight Tips; Status:Complete; Done: [id number] SocHx: Former smoker Tobacco Use Screening; Status:Complete; [...] rashes. Neurologi (more content not included)... Normal Directr Tobacco Screening.on 022 Adult depression screening assessment No [facility] y 250 DO Work Phone: Fall risk assessment a) No falls within the last year [facility] y 250 DO Work Phone: Tobacco use status CPHS b) No [facility] y 250 DO Work Phone: No Panel Informationon 03-27 135\S\135 below low threshold 136-[address] [facility] 250 DO Work Phone: [phone] 4.7\S\4.7 Normal 3.5-5.[address] [facility] 250 DO Work Phone: [phone] 0 99\S\99 Normal 95-[address] [facility] 250 DO Work Phone: 25.4\S\25.4 Normal 22.0-30.[address] [facility] Katie y 250 DO Work Phone: Comment on above: PERFORMED BY:[place] [address] [place], [place] [id number] MEDICAL DIRECTORSTEVEN NASH M.D. Serum or plasma chloride marly surement (moles/volume)Ordered By: Marcus Recinos on 03-27-2022 Chloride [Moles/Vol] 99 mmol/L 95-114 [facility] Serum or plasma potassium me asurement (moles/volume)Ordered By: Marcus Recinos on 03-27-2022 Potassium [Moles/Vol] 4.7 mmol/L 3.5-5.1 [facility] Serum or plasma sodium measu rement (moles/volume)Ordered By: Marcus Recinos on 03-27-2022 Sodium [Moles/Vol] 135 mmol/L 136-146 [facility] Serum or plasma total carbon dioxide measurement (moles/volume)Ordered By: Marcus Recinos on 03-27-2022 CO2 [Moles/Vol] 25.4 mmol/L 22.0-30.0 [facility] COVID-19 SOFIAOrdered By: Lincoln Recinos on 03-23-2022 SARS-CoV+SARS-CoV-2 (COVID-19) Ag IA.rapid Ql (Resp) Negative Negative [facility] Comment on above: This is a duplicate Larisa SARS Antigen (TYSON) result to be used for statistical tracking purpose only. Laboratory - Microbiology an d Antimicrobial susceptibilityon 03-23-2022 SARS-CoV-2 (COVID-19) RNA VERONIQUE+probe Ql (Unsp spec) -[facility] y 250 DO Work Phone: No Panel InformationOrdered By: Marcus Recinos on 03-23-2022 SARS Antigen (LFIA) [facility] No Panel Informationon 03-23 Negative Normal Negative [facility] y 250 DO Work Phone: Comment on above: This is a duplicate Larisa SARS Antigen (TYSON) result to be used for statistical tracking purpose only.PERFORMED BY:[facility] [place], [place] [id number] MEDICAL DIRECTORSTEVEN NASH M.D. Covid-19 PCR (CVDTB)on 03-04 SARS-CoV-2 (COVID-19) RNA VERONIQUE+probe Ql (Unsp spec) Not detected Normal NOT DETECTED [facility] Comment on above: Result Comment: This test is not yet approved or cleared by the [place] FDA. When there are no FDA-approved or cleared tests available, and other criteria are met, FDA can make tests available under an emergency access mechanism called an Emergency Use Authorization (EUA). The EUA for this test is supported by the [place] of Health and Human Service's (HHS's) declaration [...] SARS-CoV-2. Performed By: #### C VDTB #### [facility] [address] [place] [address] Dr. Igor Hayes INFLUENZA A AND B AGon 03-15 [facility] SEE BELOW Normal [facility] Comment on above: Result Comment: Nega tive for Flu A protein angiten. Infection due to Flu A cannot be ruled out. Flu A angiten in the sample may be below the detection limit of the test. Performed By: #### O BSCRN #### [facility] [address] [place] [address] Dr. Igor [facility] SEE BELOW Normal [facility] Comment on above: Result Comment: Nega tive for Flu B protein antigen. Infection due to Flu B cannot be ruled out. Flu B antigen in the sample may be below the detection limit of the test. Performed By: #### O BSCRN #### [facility] [address] [place] [address] Dr. Igor Hayse INFLUENZA A AG Negative Normal NEGATIVE SEE COMMENT [facility] Comment on above: Performed By: #### O BSCRN #### [facility] [address] [place] [address] Dr. Igor Hayes INFLUENZA B AG Negative Normal NEGATIVE SEE COMMENT [facility] Comment on above: Performed By: #### O BSCRN #### [facility] [address] [place] [address] Dr. Igor Hayes INTERNAL CONTROLS Within Normal Limits Normal Wi thin Normal Limits [facility] Comment on above: Performed By: #### O BSCRN #### [facility] [address] [place] [address] Dr. Igor Hayes Office Visit (Cardiology)on 02-13-2022 [...] Former smoker Tobacco Use Screening; Status:Complete; Done: [id number] Unspecified atrial flutter Start: Amiodarone HCl - [...] a) No falls within the last year [facility] y 250 DO Work Phone: Tobacco use status CP b) No [facility] y 250 DO Work Phone: Glucose Glucometer (BldC) [M ass/Vol]Ordered By: Jin Berkowitz on 01-23-2022 Glucose [Mass/Vol] 155 mg/dL [facility] Comment on above: Random Glucose Refer ence Range is dependent on time and content of last meal. Glucose of more than 200 mg/dL in a nonstressed, ambulatory subject supports the diagnosis of Diabetes Mellitus. Activated partial thrombopla stin time (aPTT) in platelet poor plasma by coagulation aOrdered By: Ama Morrison on 01-22-2022 aPTT Coag (PPP) [Time] 71.1 s 25.1-36.5 [facility] Creatinine and Glomerular fi ltration rate.predicted panel (S/P/Bld)Ordered By: Ama Morrison on 01-22-2022 Creatinine [Mass/Vol] 1.04 mg/dL 0.64-1.27 [facility] Estimated glomerular filtrat ion rate (GFR) non- AmericanOrdered By: Ama Morrison on 01-22-2022 GFR/1.73 sq M.predicted among non-blacks MDRD (S/P/Bld) [Vol rate/Area] > 60 mL/Min [facility] No Panel InformationOrdered By: Jin Berkowitz on 01-22-2022 Bedside Glucose Comment Glu2: cleaned meter [facility] No Panel InformationOrdered By: Ama Morrison on 01-22-2022 Estimated GFR () > 60 mL/Min [facility] Comment on above: GFR estimated refere nce range: According to KDOQI guidelines, <60 ml/min/1.73m2 is sufficient to diagnose a patient with chronic kidney disease. Pharmacy Creatinine Clearance (Chem 82.75 [facility] Serum or plasma calcium tiera urement (mass/volume)Ordered By: Ama Morrison on 01-22-2022 Calcium [Mass/Vol] 9.4 mg/dL 8.2-10.2 [facility] Serum or plasma chloride marly surement (moles/volume)Ordered By: Ama Morrison on 01-22-2022 Chloride [Moles/Vol] 99 mmol/L 95-114 [facility] Serum or plasma glucose tiera urement (mass/volume)Ordered By: Ama Morrison on 01-22-2022 Glucose [Mass/Vol] 117 mg/dL 70-100 [facility] Comment on above: ADA recommended refe [...] on 01-22-2022 Potassium [Moles/Vol] 4.6 mmol/L 3.5-5.1 [facility] Serum or plasma sodium measu rement (moles/volume)Ordered By: Ama Morrison on 01-22-2022 Sodium [Moles/Vol] 139 mmol/L 136-146 [facility] Serum or plasma total carbon dioxide measurement (moles/volume)Ordered By: Ama Morrison on 01-22-2022 CO2 [Moles/Vol] 29.5 mmol/L 22.0-30.0 [facility] Serum or plasma urea nitroge n measurement (mass/volume)Ordered By: Ama Morrison on 01-22-2022 Urea nitrogen [Mass/Vol] 17 mg/dL 9-23 [facility] Basophils Auto (Bld) [#/Vol] Ordered By: Pola Anders on 01-21-2022 Basophils (Bld) [#/Vol] 0.1 10*3/uL 0.0-0.2 [facility] Basophils/100 WBC Auto (Bld) Ordered By: Pola Anders on 01-21-2022 Basophils/100 WBC (Bld) 1.2 % [facility] Blood hemoglobin measurement (mass/volume)Ordered By: Pola Anders on 01-21-2022 Hemoglobin (Bld) [Mass/Vol] 15.9 g/dL 13.0-17.0 [facility] Blood leukocytes automated c ount (number/volume)Ordered By: Pola Anders on 01-21-2022 WBC (Bld) [#/Vol] 4.9 10*3/uL 4.5-11.0 [facility] Eosinophils Auto (Bld) [#/Vo l]Ordered By: Pola Anders on 01-21-2022 Eosinophils (Bld) [#/Vol] 0.2 10*3/uL 0.0-0.45 [facility] Eosinophils/100 WBC Auto (Bl d)Ordered By: Pola Anders on 01-21-2022 Eosinophils/100 WBC (Bld) 3.1 % [facility] Erythrocyte distribution wid th Auto (RBC) [Ratio]Ordered By: Pola Anders on 01-21-2022 Erythrocyte distribution width (RBC) [Ratio] 13.4 % 12.0-14.8 [facility] Hematocrit Auto (Bld) [Volum e fraction]Ordered By: Pola Anders on 01-21-2022 Hematocrit (Bld) [Volume fraction] 46.7 % 38.8-50.0 [facility] Laboratory - Hematology and Cell countsOrdered By: Pola Anders on 01-21-2022 Nucleated RBC/100 WBC (Bld) [Ratio] 0.2 % 0-0.5 [facility] Lymphocytes Auto (Bld) [#/Vo l]Ordered By: Pola Anders on 01-21-2022 Lymphocytes (Bld) [#/Vol] 1.3 10*3/uL 1.00-4.8 [facility] Lymphocytes/100 WBC Auto (Bl d)Ordered By: Pola Anders on 01-21-2022 Lymphocytes/100 WBC (Bld) 26.4 % [facility] MCH Auto (RBC) [Entitic mass ]Ordered By: Pola Martita on 01-21-2022 MCH (RBC) [Entitic mass] 30.8 pg 27.5-35.2 [facility] MCHC Auto (RBC) [Mass/Vol]Or dered By: Pola Martita on 01-21-2022 MCHC (RBC) [Mass/Vol] 34.2 g/dL 32.5-35.6 [facility] MCV Auto (RBC) [Entitic vol] Ordered By: Pola Martita on 01-21-2022 MCV (RBC) [Entitic vol] 90.2 fL 83.5-101 [facility] Monocytes Auto (Bld) [#/Vol] Ordered By: Pola Martita on 01-21-2022 Monocytes (Bld) [#/Vol] 0.6 10*3/uL 0.0-0.8 [facility] Monocytes/100 WBC Auto (Bld) Ordered By: Pola Martita on 01-21-2022 Monocytes/100 WBC (Bld) 13.0 % [facility] Neutrophils Auto (Bld) [#/Vo l]Ordered By: Pola Martita on 01-21-2022 Neutrophils (Bld) [#/Vol] 2.8 10*3/uL 1.8-7.7 [facility] Neutrophils/100 WBC Auto (Bl d)Ordered By: Pola Martita on 01-21-2022 Neutrophils/100 WBC (Bld) 56.3 % [facility] Platelet mean volume Auto (B ld) [Entitic vol]Ordered By: Pola Martita on 01-21-2022 Platelet mean volume (Bld) [Entitic vol] 9.2 fL 6.6-10.1 [facility] Platelets Auto (Bld) [#/Vol] Ordered By: Pola Martita on 01-21-2022 Platelets (Bld) [#/Vol] 176 10*3/uL 150-450 [facility] RBC Auto (Bld) [#/Vol]Ordere d By: Pola Martiat on 01-21-2022 RBC (Bld) [#/Vol] 5.18 10*6/uL 3.90-5.60 [facility] Cholesterol [Mass/volume] in Serum or PlasmaOrdered By: Pola Anders on 01-20-2022 Cholesterol [Mass/Vol] 155 mg/dL 140-200 [facility] Comment on above: Chol less than 200 m g/dl low riskChol 201-239 mg/dl borderline riskChol 240 mg/dl and greater high risk Chol less than 200 m g/dl low risk Chol 201-239 mg/dl borderline risk Chol 240 mg/dl and greater high risk Cholesterol in LDL Calc [Mas s/Vol]Ordered By: Pola Anders on 01-20-2022 Cholesterol in LDL [Mass/Vol] 82 mg/dL 0-100 [facility] Comment on above: LDL ATP III [...] Cholesterol in VLDL [Mass/Vol] 31 mg/dL [facility] Glucose mean value [Mass/vol ume] in Blood Estimated from glycated hemoglobinOrdered By: Pola Anders on 01-20-2022 Average glucose Estimated from glycated hemoglobin (Bld) [Mass/Vol] 140 mg/dL [facility] Hemoglobin A1c percentageOrd ered By: Pola Anders on 01-20-2022 HbA1c (Bld) [Mass fraction] 6.5 % 4.3-5.6 [facility] Comment on above: Increased risk for d iabetes: 5.7 - 6.4diabetes: >6.4glycemic control for adults with diabetes: <7.0 Increased risk for d iabetes: 5.7 - 6.4 diabetes: >6.4 glycemic control for adults with diabetes: <7.0 Laboratory - CoagulationOrde red By: Pola Anders on 01-20-2022 PT Coag (PPP) [Time] 15.6 s 9.0-12.9 [facility] Platelet poor plasma interna tional normalized ratio (INR) by coagulation assay (relatOrdered By: Pola Anders on 01-20-2022 INR Coag (PPP) [Relative time] 1.4 {INR} [facility] Comment on above: INR Therapeutic Rang [...] in HDL [Mass/Vol] 41 mg/dL 29-71 [facility] Comment on above: HDL CHOL ATP-III [...] esterol in HDL [Mass ratio] 3.8 {ratio} [facility] Triglyceride [Mass/volume] i n Serum or PlasmaOrdered By: Pola Anders on 01-20-2022 Triglyceride [Mass/Vol] 158 mg/dL 35-149 [facility] Comment on above: TRIG ATP III [...] sensitivity method [Mass/Vol] 7 pg/mL 0-20 [facility] Vital Signs Date Time Vital Sign Value Performing Clinician Facility 06-17-2025 14:33-0400 Body height 182.[address] 06-17-2025 14:33-0400 Body mass index (BMI) [Ratio] 30.38 kg/m2 [address] 06-17-2025 14:33-0400 Body weight 101.[address] 06-17-2025 14:33-0400 Diastolic blood pressure 78 mm[Hg] [address] 06-17-2025 14:33-0400 Systolic blood pressure 118 mm[Hg] [address] 04-15-2025 11:09-0400 Body height 182.9 cm Joe EVERETTM Work Phone: [facility] 04-15-2025 11:09-0400 Body mass index (BMI) [Ratio] 31.19 kg/m2 Joe García DPM Work Phone: [facility] 04-15-2025 11:09-0400 Body weight 104.33 kg Joe García DPM Work Phone: [facility] 04-15-2025 11:09-0400 Respiratory rate 18 /min Joe García DPM Work Phone: [facility] 03-29-2025 20:47-0400 Body height 182.88 cm Tirso Frausto MD Work Phone: [facility] 03-29-2025 20:47-0400 Body temperature 97.9 [degF] Tirso Frausto MD Work Phone: [facility] 03-29-2025 20:47-0400 Body weight 103 kg Tirso Frausto MD Work Phone: [facility] 03-29-2025 20:47-0400 Diastolic blood pressure 69 mm[Hg] Tirso Frausto MD Work Phone: [facility] 03-29-2025 20:47-0400 Heart rate 60 /min Tirso Frausto MD Work Phone: [facility] 03-29-2025 20:47-0400 Respiratory rate 18 /min Tirso Frausto MD Work Phone: [facility] 03-29-2025 20:47-0400 SaO2% (BldA) [Mass fraction] 96 % Tirso Frausto MD Work Phone: [facility] 03-29-2025 20:47-0400 Systolic blood pressure 132 mm[Hg] Tirso Frausto MD Work Phone: [facility] 02-04-2025 10:08-0400 Body height 182.9 cm Joe García DPM Work Phone: [facility] 02-04-2025 10:08-0400 Body mass index (BMI) [Ratio] 31.19 kg/m2 Joe García DPM Work Phone: [facility] 02-04-2025 10:08-0400 Body weight 104.33 kg Joe García DPM Work Phone: [facility] 02-04-2025 10:08-0400 Respiratory rate 16 /min Joe García DPM Work Phone: [facility] 01-06-2025 13:22-0500 Body height 182.9 cm Marcus Recinos MD Work Phone: [facility] 01-06-2025 13:22-0500 Body mass index (BMI) [Ratio] 30.38 kg/m2 Marcus Recinos MD Work Phone: [facility] 01-06-2025 13:22-0500 Body weight 101.61 kg Marcus Recinos MD Work Phone: [facility] 01-06-2025 13:22-0500 Diastolic blood pressure 60 mm[Hg] Marcus Recinos MD Work Phone: [facility] 01-06-2025 13:22-0500 Heart rate 55 /min Marcus Recinos MD Work Phone: [facility] 01-06-2025 13:22-0500 Systolic blood pressure 120 mm[Hg] Marcus Recinos MD Work Phone: [facility] 11-26-2024 10:35-0500 Body height 182.9 cm Joe García DPM Work Phone: [facility] 11-26-2024 10:35-0500 Body mass index (BMI) [Ratio] 31.19 kg/m2 Joe García DPM Work Phone: [facility] 11-26-2024 10:35-0500 Body weight 104.33 kg Joe García DPM Work Phone: [facility] 11-26-2024 10:35-0500 Respiratory rate 18 /min Joe García DPM Work Phone: [facility] 12-04-2023 09:03-0500 Body height 182.9 cm Marcus Recinos MD Work Phone: [facility] 12-04-2023 09:03-0500 Body mass index (BMI) [Ratio] 31.46 kg/m2 Marcus Recinos MD Work Phone: [facility] 12-04-2023 09:03-0500 Body weight 105.23 kg Marcus Recinos MD Work Phone: [facility] 12-04-2023 09:03-0500 Diastolic blood pressure 72 mm[Hg] Marcus Recinos MD Work Phone: [facility] 12-04-2023 09:03-0500 Heart rate 61 /min Marcus Recinos MD Work Phone: [facility] 12-04-2023 09:03-0500 Systolic blood pressure 118 mm[Hg] Marcus Recinos MD Work Phone: [facility] 02-08-2023 10:42-0400 Body height 182.88 cm Tirso M Hoy Work Phone: [facility] 250 DO Work Phone: 02-08-2023 10:42-0400 Body mass index (BMI) [Ratio] 30.65 kg/m2 Tirso M Hoy Work Phone: [facility] 250 DO Work Phone: 02-08-2023 10:42-0400 Body surface area Derived from formula 2.24 m2 Tirso M Hoy Work Phone: [facility] 250 DO Work Phone: 02-08-2023 10:42-0400 Body weight 102.51 kg Tirso M Hoy Work Phone: [facility] 250 DO Work Phone: 02-08-2023 10:42-0400 Diastolic blood pressure 83 mm[Hg] Tirso M Hoy Work Phone: [facility] 250 DO Work Phone: 02-08-2023 10:42-0400 Heart rate 54 /min Tirso M Hoy Work Phone: [facility] 250 DO Work Phone: 02-08-2023 10:42-0400 Systolic blood pressure 128 mm[Hg] Tirso M Hoy Work Phone: [facility] 250 DO Work Phone: 11-08-2022 11:01-0500 Body height 182.88 cm Tirso M Hoy Work Phone: [facility] 250 DO Work Phone: 11-08-2022 11:01-0500 Body mass index (BMI) [Ratio] 30.92 kg/m2 Tirso M Hoy Work Phone: [facility] 250 DO Work Phone: 11-08-2022 11:01-0500 Body surface area Derived from formula 2.25 m2 Tirso M Hoy Work Phone: [facility] 250 DO Work Phone: 11-08-2022 11:01-0500 Body weight 103.42 kg Tirso M Hoy Work Phone: [facility] 250 DO Work Phone: 11-08-2022 11:01-0500 Diastolic blood pressure 72 mm[Hg] Tirso M Hoy Work Phone: [facility] 250 DO Work Phone: 11-08-2022 11:01-0500 Heart rate 49 /min Tirso M Hoy Work Phone: [facility] 250 DO Work Phone: 11-08-2022 11:01-0500 Systolic blood pressure 110 mm[Hg] Tirso M Hoy Work Phone: [facility] 250 DO Work Phone: 04-24-2022 14:21-0400 Body height 182.88 cm Tirso M Hoy Work Phone: [facility] 250 DO Work Phone: 04-24-2022 14:21-0400 Body mass index (BMI) [Ratio] 30.38 kg/m2 Tirso Rivera Hoy Work Phone: [facility] 250 DO Work Phone: 04-24-2022 14:21-0400 Body surface area Derived from formula 2.24 m2 Tirso Gamezy Work Phone: [facility] 250 DO Work Phone: 04-24-2022 14:21-0400 Body weight 101.61 kg Tirso Gamezy Work Phone: [facility] 250 DO Work Phone: 04-24-2022 14:21-0400 Diastolic blood pressure 80 mm[Hg] Tirso Gamezy Work Phone: [facility] 250 DO Work Phone: 04-24-2022 14:21-0400 Heart rate 51 /min Tirso Gamezy Work Phone: [facility] 250 DO Work Phone: 04-24-2022 14:21-0400 Systolic blood pressure 118 mm[Hg] Tirso Frausto Work Phone: [facility] 250 DO Work Phone: 04-17-2022 12:00-0400 Body temperature 97.34 [degF] Sarath Hines [facility] 04-17-2022 12:00-0400 Diastolic blood pressure 68 mm[Hg] Sarath Hines [facility] 04-17-2022 12:00-0400 Heart rate 50 /min Sarath Hines [facility] 04-17-2022 12:00-0400 SaO2% (BldA) [Mass fraction] 96 % Sarath Hines [facility] 04-17-2022 12:00-0400 Systolic blood pressure 100 mm[Hg] Sarath Crumhler [facility] 04-17-2022 11:36-0400 Blood Pressure Location Sarath Crumhler [facility] 04-17-2022 11:36-0400 BP/Pulse Patient Position Sarath Crumhler [facility] 04-17-2022 11:36-0400 Diastolic blood pressure 75 mm[Hg] Sarath Zahler [facility] 04-17-2022 11:36-0400 Heart rate 47 /min Sarath Zahler [facility] 04-17-2022 11:36-0400 Respiratory rate 18 /min Sarath Crumkarener [facility] 04-17-2022 11:36-0400 SaO2% (BldA) [Mass fraction] 94 % Sarath Crumhler [facility] 04-17-2022 11:36-0400 Systolic blood pressure 109 mm[Hg] Sarath Crumhler [facility] 04-17-2022 11:20-0400 Blood Pressure Location Saarth Menendezer [facility] 04-17-2022 11:20-0400 BP/Pulse Patient Position Sarath Crumhler [facility] 04-17-2022 11:20-0400 Diastolic blood pressure 82 mm[Hg] Sarath Zahler [facility] 04-17-2022 11:20-0400 Heart rate 47 /min Sarath Skylahler [facility] 04-17-2022 11:20-0400 Respiratory rate 18 /min Sarath Crumjill [facility] 04-17-2022 11:20-0400 SaO2% (BldA) [Mass fraction] 94 % Sarath Crumkarenclaus [facility] 04-17-2022 11:20-0400 Systolic blood pressure 110 mm[Hg] Sarath Zakarenclaus [facility] 04-17-2022 09:32-0400 Blood Pressure Location Sarath Crumkarenclaus [facility] 04-17-2022 09:32-0400 BP/Pulse Patient Position Sarath Crumjill [facility] 04-17-2022 09:32-0400 Mean blood pressure 76 mm[Hg] Sarath Flora [facility] 04-17-2022 09:31-0400 Body temperature 98.6 [degF] Sarath Crumjill [facility] 04-17-2022 09:31-0400 Mean blood pressure 79 mm[Hg] Sarath Zajill [facility] 04-17-2022 09:31-0400 Respiratory rate 20 /min Sarath Flora [facility] 03-27-2022 09:00-0400 Inhaled oxygen flow rate 2 L/min MD Tirso Frausto Work Phone: [facility] 02-27-2022 12:16-0400 Body height 182.88 cm Tirso Frausto Work Phone: [facility] 250 DO Work Phone: 02-27-2022 12:16-0400 Body mass index (BMI) [Ratio] 30.65 kg/m2 Tirso M Hoy Work Phone: [facility] 250 DO Work Phone: 02-27-2022 12:16-0400 Body surface area Derived from formula 2.24 m2 Tirso Miguel Hoy Work Phone: [facility] 250 DO Work Phone: 02-27-2022 12:16-0400 Body weight 102.51 kg Tirso Miguel Hoy Work Phone: [facility] 250 DO Work Phone: 02-27-2022 12:16-0400 Diastolic blood pressure 80 mm[Hg] Tirso Miguel Hoy Work Phone: [facility] 250 DO Work Phone: 02-27-2022 12:16-0400 Heart rate 79 /min Tirso Rivera Hoy Work Phone: [facility] 250 DO Work Phone: 02-27-2022 12:16-0400 Systolic blood pressure 110 mm[Hg] Tirso Rivera Hoy Work Phone: [facility] 250 DO Work Phone: 02-13-2022 13:01-0400 Body height 182.88 cm Tirso Rivera Hoy Work Phone: [facility] 250 DO Work Phone: 02-13-2022 13:01-0400 Body mass index (BMI) [Ratio] 30.11 kg/m2 Tirso Miguel Hoy Work Phone: [facility] 250 DO Work Phone: 02-13-2022 13:01-0400 Body surface area Derived from formula 2.23 m2 Tirso Miguel Hoy Work Phone: [facility] 250 DO Work Phone: 02-13-2022 13:01-0400 Body weight 100.7 kg Tirso Rivera Hoy Work Phone: [facility] 250 DO Work Phone: 02-13-2022 13:01-0400 Diastolic blood pressure 72 mm[Hg] Tirso Rivera Hoy Work Phone: [facility] 250 DO Work Phone: 02-13-2022 13:01-0400 Heart rate 104 /min Tirso Rivera Hoy Work Phone: [facility] 250 DO Work Phone: 02-13-2022 13:01-0400 Systolic blood pressure 104 mm[Hg] Tirso Rivera Hoy Work Phone: [facility] 250 DO Work Phone: 01-23-2022 08:00-0400 Body temperature 97.8 [degF] MD Tirso Frausto Work Phone: [facility] 01-23-2022 08:00-0400 Diastolic blood pressure 64 mm[Hg] MD Tirso Frausto Work Phone: [facility] 01-23-2022 08:00-0400 Heart rate 73 /min MD Tirso Frausto Work Phone: [facility] 01-23-2022 08:00-0400 Respiratory rate 18 /min MD Tirso Frausto Work Phone: [facility] 01-23-2022 08:00-0400 SaO2% (BldA) [Mass fraction] 93 % MD Tirso Frausto Work Phone: [facility] 01-23-2022 08:00-0400 Systolic blood pressure 100 mm[Hg] MD Tirso Frausto Work Phone: [facility] 01-23-2022 05:57-0400 Body weight 93.1 kg MD Tirso Frausto Work Phone: [facility] 01-22-2022 08:40-0400 Inhaled oxygen flow rate 2 L/min MD Tirso Frausto Work Phone: [facility] 01-20-2022 16:12-0400 55 1 Tirso Frausto Work Phone: [facility] 250 DO Work Phone: Comment on above: [place] [id number] 01-20-2022 02:09-0400 Body height 182.88 cm MD Tirso Frausto Work Phone: [facility] 01-20-2022 02:09-0400 Body mass index (BMI) [Ratio] 29.9 kg/m2 MD Tirso Frausto Work Phone: [facility] Encounters Encounter Date Encounter Type Care Provider Facility Start: 06-17-2025 End: 06-17-2025 Subsequent hospital visit by physician Jimena Shell Echo/Vasc Room 2 [facility] Comment on above: Shortness of breath; Essential hypertension; Mixed hyperlipidemia; Atrial flutter, unspecified type (Multi); Chronic obstructive pulmonary disease, unspecified COPD type (Multi) Start: 06-17-2025 End: 06-17-2025 ambulatory [facility] Start: 04-15-2025 End: 04-15-2025 Bamboo flowsheet Joe García DPM Work Phone: [facility] Start: 04-15-2025 End: 04-15-2025 Bamboo flowsheet Joe García DPM Work Phone: [facility] Start: 04-15-2025 End: 04-15-2025 Patient encounter procedure Joe García DPM Work Phone: [facility] Comment on above: Diabetes mellitus du e to underlying condition with diabetic polyneuropathy, unspecified whether intermediate manager insulin use (HCC) (Primary Dx); Pain due to onychomycosis of toenails of both feet Start: 04-15-2025 End: 04-15-2025 ambulatory JOE GARCÍA Not Available Start: 03-29-2025 End: 03-29-2025 Emergency department patient visit Tirso Frausto MD Work Phone: [facility] Work Phone: Start: 03-18-2025 End: 03-18-2025 Subsequent hospital visit by physician Jimena Shell Echo/Vasc Room 2 [facility] Comment on above: Essential hypertensi on; Atypical atrial flutter; Mixed hyperlipidemia; Former smoker Start: 03-18-2025 End: 03-18-2025 ambulatory [facility] Start: 02-04-2025 End: 02-04-2025 Bamboo flowsheet Joe García DPM Work Phone: [facility] Start: 02-04-2025 End: 02-04-2025 Bamboo flowsheet Joe García DPM Work Phone: [facility] Start: 02-04-2025 End: 02-04-2025 Patient encounter procedure Joe García DPM Work Phone: [facility] Comment on above: Diabetes mellitus du e to underlying condition with diabetic polyneuropathy, unspecified whether intermediate insulin use ([facility]) (Primary Dx); Pain due to onychomycosis of toenails of both feet Start: 02-04-2025 End: 02-04-2025 ambulatory JOE GARCÍA Not Available Start: 01-06-2025 End: 01-06-2025 Office outpatient visit 25 minutes Marcus Recinos MD Work Phone: [facility] Comment on above: Atypical atrial flut ter (Multi) (Primary Dx); Essential hypertension; High risk medication use; Mixed hyperlipidemia; Chronic obstructive pulmonary disease, unspecified COPD type (Multi); BMI 30.0-30.9,adult; Former smoker; Obesity, Class I, BMI 30-34.9; Hypothyroidism, unspecified type Start: 01-06-2025 End: 01-06-2025 ambulatory [facility] Start: 11-26-2024 End: 11-26-2024 Bamboo flowsheet Joe García DPM Work Phone: [facility] Start: 11-26-2024 End: 11-26-2024 Bamboo flowsheet Joe García DPM Work Phone: [facility] Start: 11-26-2024 End: 11-26-2024 Office outpatient new 30 minutes Joe García DPM Work Phone: [facility] Comment on above: Contusion of right f oot, initial encounter (Primary Dx); Pain due to onychomycosis of toenails of both feet; Diabetes mellitus due to underlying condition with diabetic polyneuropathy, unspecified whether intermediate manager insulin use (CMS/HCC) Start: 11-26-2024 End: 11-26-2024 ambulatory JOE GARCÍA Not Available Start: 12-04-2023 End: 12-04-2023 Office outpatient visit 25 minutes Marcus Recinos MD Work Phone: [facility] Comment on above: Atrial flutter, unsp ecified type (CMS/HCC) (Primary Dx); Benign essential hypertension; High risk medication use; Hyperlipidemia, unspecified hyperlipidemia type; Pulmonary emphysema, unspecified emphysema type (CMS/HCC); Coronary artery disease involving paimiut coronary artery of paimiut heart without angina pectoris; Obesity, Class I, BMI 30-34.9 Start: 05-06-2023 Patient encounter procedure Tirso Frausto Work Phone: [facility] 250 DO Work Phone: Start: 03-08-2023 End: 03-09-[address] TIRSO FRAUSTO . Facility: Start: 02-08-2023 Patient encounter procedure Tirso Frausto Work Phone: [facility] 250 DO Work Phone: Start: 02-08-[address] Darwin Perdomo Facility: Start: 02-05-2023 AUDIT Tirso Frausto Work Phone: [facility] 250 DO Work Phone: Start: 02-01-2023 End: 02-01-2023 ambulatory NOELLEYOEL VLAERA Facility:H1 Start: 01-22-2023 End: 01-22-2023 ambulatory Jina Rios Other [employer] Other Start: 01-22-2023 Telephone encounter Jina Broussard [facility] Start: 01-21-2023 Telephone encounter Tirso Frausto Work Phone: [facility] 250 DO Work Phone: Start: 01-10-2023 End: 01-11-[address] MARCUS RECINOS Facility:H1 Start: 01-01-2023 ([facility] R A/c) [facility] Re peat A/C Olga Phipps [facility] Start: 01-01-2023 End: 01-01-2023 ambulatory Jina Rios Other [employer] Other Start: 01-01-2023 Telephone encounter Jina Broussard mckenzie [facility] Start: 12-20-2022 Patient encounter procedure Tirso Frausto Work Phone: [facility] 250 DO Work Phone: Start: 12-10-2022 ([facility] R A/c) [facility] Re peat A/C Victoria Guanako [facility] Start: 12-10-2022 End: 12-10-2022 ambulatory Victoria Wentworth Other [employer] Other Start: 11-26-2022 ([facility] R A/c) [facility] Re peat A/C Victoria Guanako [facility] Start: 11-26-2022 End: 11-26-2022 ambulatory Victoria Guanako Other [employer] Other Start: 11-15-2022 ([facility] R A/c) [facility] Re peat A/C Carlos A Martinezkiki [facility] Start: 11-15-2022 End: 11-15-2022 ambulatory Carlos A Salazar Other [facility] [employer] Other Start: 11-14-2022 End: 11-15-[address] MARCUS RECINOS Facility:H1 Start: 11-08-2022 Office outpatient vi sit 25 minutes Tirso Frausto Work Phone: [facility] 250 DO Work Phone: Start: 11-08-2022 ambulatory Marcus Recinso Facility : Start: 11-02-2022 End: 11-03-[address] TIRSO FRAUSTO . Facility:H1 Start: 11-01-2022 End: 11-01-2022 ambulatory Jina Rios Other [facility] [employer] Other Start: 11-01-2022 Telephone encounter Jina Rios [facility] Start: 10-23-2022 End: 10-24-[address] MARCUS RECINOS Facility:H1 Start: 10-22-2022 End: 10-23-[address] ABHIJIT ROSENTHAL REQUEST Facility: Start: 10-15-2022 Telephone encounter Tirso Frausto Work Phone: [facility] 250 DO Work Phone: Start: 10-10-2022 Patient encounter procedure Tirso Frausto Work Phone: [facility] 250 DO Work Phone: Start: 10-09-2022 End: 10-10-[address] TIRSO FRAUSTO . Facility:H1 Start: 08-10-2022 Chart Update Tirso Frausto Work Phone: [facility] 250 DO Work Phone: Start: 07-06-2022 Patient encounter procedure Tirso Frausto Work Phone: [facility] 250 DO Work Phone: Start: 05-15-2022 Rx Renewal Tirso Frausto Work Phone: [facility] 250 DO Work Phone: Start: 04-26-2022 Chart Update Tirso Frausto Work Phone: [facility] 250 DO Work Phone: Start: 04-26-2022 End: 04-26-2022 Patient encounter procedure MD Tirso Frausto Work Phone: [facility] Start: 04-24-2022 Office outpatient vi sit 25 minutes Tirso Rivera Lisbet Work Phone: [facility] 250 DO Work Phone: Start: 04-24-2022 ambulatory Marcus Recinos Facility : Start: 04-19-2022 Rx Renewal Tirso Frausto Work Phone: [facility] 600 DO Work Phone: Start: 04-17-2022 End: 04-17-2022 Admission to same day surgery center Sarath Hines [facility] Start: 03-28-2022 Chart Update Tirso Miguel Gamezsalome Work Phone: [facility] 250 DO Work Phone: Start: 03-27-[address] Tirso Frausto Facility:[id number] Start: 03-27-2022 SURGNON, Provider: Marcus Recinos, Status: Pen, Time: 9:00 AM Tirso Frausto Work Phone: [facility] 250 DO Work Phone: Start: 03-27-2022 End: 03-27-2022 Admission to same day surgery center MD Tirso Frausto Work Phone: [facility] Start: 03-26-2022 Chart Update Tirso Frausto Work Phone: [facility] 250 DO Work Phone: Start: 03-23-2022 End: 03-23-2022 Patient encounter procedure MD Tirso Frausto Work Phone: [facility] Start: 03-15-2022 End: 03-15-[address] TIRSO FRAUSTO . Facility: Start: 03-08-2022 Patient encounter procedure Tirso Rivera Francosalome Work Phone: [facility] 250 DO Work Phone: Start: 03-01-2022 Telephone encounter Tirso Frausto Work Phone: [facility] 250 DO Work Phone: Start: 02-27-2022 ambulatory Marcus Recinos Facility : Start: 02-27-2022 Patient encounter procedure Tirso Rivera Francosalome Work Phone: [facility] 250 DO Work Phone: Start: 02-13-2022 Office outpatient vi sit 25 minutes Tirso Miguel Lisbet Work Phone: [facility] 250 DO Work Phone: Start: 02-13-2022 ambulatory Marcus Recinos Facility : Start: 01-25-2022 End: 01-25-2022 Patient encounter procedure MD Tirso Frausto Work Phone: [facility] [address] Start: 01-20-2022 End: 01-23-2022 Evaluation and management of inpatient MD Tirso Frausto Work Phone: [facility] [place] [facility] Procedures Date Procedure Procedure Detail Performing Clinician Start: 03-18-2025 Us abdominal aorta r eal time screen study aaa Marcus Recinos MD Work Phone: Start: 01-06-2025 Ecg routine ecg w/le ast 12 lds w/i&r Marcus Recinos MD Work Phone: Start: 12-04-2023 Ecg routine ecg w/le ast 12 lds w/i&r Marcus Recinos MD Work Phone: Start: 10-09-[address] ABHIJIT WINTED REQUEST Comment on above: Performed By: #### O BSCRN #### [facility] [address] [place] [address] Dr. Igor Hayes Start: 04-26-2022 Plain chest [...] Sarath Hines Repair of ventral hernia Pablito barber Flora Plan of Treatment Date Care Activity Detail Author Start: 04-12-2031 Screening for malignant neoplasm of colon [facility] Start: 12-09-2025 End: 01-06-2026 Complete Pulmonary Function Test (Spirometry/DLCO/Lung Volumes) Complete Pulmonary Function Test (Spirometry/DLCO/Lung Volumes) PFT Routine Atypical atrial flutter (Multi) High risk medication use Expected: 12/09/2025 (Approximate), Expires: 01/06/2026 [facility] Work Phone: Comment on above: Expected: 12/09/2025 (Approximate), Expi res: 01/06/2026 Start: 12-09-2025 End: 01-06-2026 XR Chest 2 Views XR chest 2 views Imaging Routine Atypical atrial flutter (Multi) High risk medication use Expected: 12/09/2025 (Approximate), Expires: 01/06/2026 [facility] Work Phone: Comment on above: Expected: 12/09/2025 (Approximate), Expi res: 01/06/2026 Start: 08-25-2025 End: 08-25-2025 Patient encounter procedure 08/25/2025 11:10 AM EDT Office Visit [facility] [address] [address] Marcus Recinos MD 703 [facility] 2, [address] [place] [address] [facility] Start: 07-09-2025 End: 01-06-2026 Aspartate aminotransferase [Enzymatic activity/volume] in Serum or Plasma by With P-5'-P Aspartate Aminotransferase Lab Routine Atypical atrial flutter (Multi) High risk medication use Expected: 07/09/2025 (Approximate), Expires: 01/06/2026 [facility] Service Area Work Phone: Comment on above: Expected: 07/09/2025 (Approximate), Expi res: 01/06/2026 Start: 07-09-2025 End: 01-06-2026 Basic metabolic 2000 panel - Serum or Plasma Basic Metabolic Panel Lab Routine Atypical atrial flutter (Multi) High risk medication use Expected: 07/09/2025 (Approximate), Expires: 01/06/2026 [facility] Work Phone: Comment on above: Expected: 07/09/2025 (Approximate), Expi res: 01/06/2026 Start: 07-09-2025 End: 01-06-2026 Thyrotropin [Units/volume] in Serum or Plasma Thyroid Stimulating Hormone Lab Routine Atypical atrial flutter (Multi) High risk medication use Expected: 07/09/2025 (Approximate), Expires: 01/06/2026 [facility] Work Phone: Comment on above: Expected: 07/09/2025 (Approximate), Expi res: 01/06/2026 Start: 07-05-2025 Influenza vaccination [facility] Start: 06-24-2025 End: 06-24-2025 Patient encounter procedure 06/24/2025 10:10 AM EDT Procedure Visit [facility] [address] [place] [id number] Joe García DPM [address] [address] [facility] Start: 04-15-2025 End: 04-15-2025 Patient encounter procedure 04/15/2025 11:10 AM EDT Procedure Visit [facility] [address] [place] [address] Joe García DPM [address] [address] Diabetes mellitus due to underlying condition with diabetic polyneuropathy, unspecified whether intermediate insulin use (HCC) (Primary Dx); Pain due to onychomycosis of toenails of both feet [facility] Comment on above: Diabetes mellitus due to underlying cond ition with diabetic polyneuropathy, unspecified whether intermediate manager insulin use (HCC) (Primary Dx); Pain due to onychomycosis of toenails of both feet Start: 03-29-2025 CT cervical spine without contrast CT cervical spine wo con [facility] Start: 03-29-2025 CT Cervical spine WO contrast [facility] Start: 03-29-2025 CT of head without contrast CT head/brain wo con [facility] Start: 03-29-2025 CT Unspecified body region WO contrast [facility] Start: 03-29-2025 Plain X-ray of left shoulder XR shoulder LT min 2V* [facility] Start: 03-29-2025 XR Shoulder - left Views [facility] Start: 03-18-2025 End: 03-18-2025 Patient encounter procedure 03/18/2025 8:45 AM EDT Appointment [facility] [address] [facility] [address] [place] [address] [facility] Start: 02-04-2025 End: 02-04-2025 Patient encounter procedure [facility] Comment on above: Diabetes mellitus due to underlying cond ition with diabetic polyneuropathy, unspecified whether intermediate insulin use (CMS/HCC) (Primary Dx); Pain due to onychomycosis of toenails of both feet Start: 01-20-2025 Medicare Annual Wellness Visit Medicare Annual Wellness Visit (AWV) [facility] Start: 01-06-2025 End: 01-06-2027 US Abdominal Aorta for screening Vascular US Abdominal Aorta Aneurysm AAA Screening Vascular Ultrasound Routine Essential hypertension Atypical atrial flutter (Multi) Mixed hyperlipidemia Former smoker Expected: 01/06/2025 (Approximate), Expires: 01/06/2027 [facility] Work Phone: Comment on above: Expected: 01/06/2025 (Approximate), Expi res: 01/06/2027 Start: 11-26-2024 End: 11-26-2024 Patient encounter procedure 11/26/2024 10:30 AM EST Office Visit [facility] [address] [facility] [address] [place] [address] Joe García DPM [address] [facility] 5 [place] [address] Arrived [facility] Comment on above: Arrived Start: 07-05-2024 COVID-19 Vaccine ( season) COVID-19 Vaccine ( season) [facility] Start: 07-05-2024 Influenza vaccination Influenza Vaccine (#1) [facility] Start: 06-03-2024 End: 06-03-2024 Patient encounter procedure 06/03/2024 10:00 AM EDT Office Visit [facility] [address] [facility] [address] [place] [address] Marcus Recinos MD [facility] [address] [place] [address] [facility] Start: 07-05-2023 Influenza vaccination Influenza Vaccine (#1) [facility] Start: 05-29-2023 FUV, Provider: Marcus Recinos, Status: Pen, Time: 9:30 AM FUV, Provider: Marcus Recinos, Status: Pen, Time: 9:30 AM [facility] 250 DO Work Phone: Start: 05-14-2023 FUV, Provider: Darwin Perdomo, Status: Pen, Time: 9:30 AM FUV, Provider: Darwin Perdomo, Status: Pen, Time: 9:30 AM [facility] 250 DO Work Phone: Start: 11-08-2022 FUV, Provider: Marcus Recinos, Status: Pen, Time: 10:40 AM FUV, Provider: Marcus Recinos, Status: Pen, Time: 10:40 AM [facility] Work [facility]: Start: 04-24-2022 FUV, Provider: Marcus Recinos, Status: Pen, Time: 2:10 PM FUV, Provider: Marcus Recinos, Status: Pen, Time: 2:10 PM -Merged With [facility] 250 DO Work Phone: Start: 03-27-2022 SURGNONUH, Provider: Marcus Recinos, Status: Pen, Time: 9:00 AM SURGNONUH, Provider: Marcus Recinos, Status: Pen, Time: 9:[address] [facility] 250 DO Work Phone: Start: 02-27-2022 EKG, Provider: CLEVELAND MADRIGAL RN WOUND 1,[id number], Status: Pen, Time: 10:00 AM EKG, Provider: C[place]AND MADRIGAL RN WOUND 1,[id number], Status: Pen, Time: 10:[address] [facility] 250 DO Work Phone: Start: 2019 Abdominal aortic aneurysm screening Abdominal Aortic Aneurysm (AAA) Screening [facility] Start: 2014 RSV High Risk: (Elderly (60+) or Population) (1 - Risk 60-74 years 1-dose series) RSV High Risk: (Elderly (60+) or Population) (1 - Risk 60-74 years 1-dose series) [facility] Start: 2004 Zoster Vaccines (1 of 2) Zoster Vaccines (1 of 2) [facility] Start: 1976 DTaP/Tdap/Td Vaccines (1 - Tdap) DTaP/Tdap/Td Vaccines (1 - Tdap) [facility] Start: 1973 Pneumococcal vaccination Pneumococcal Vaccine (1 of 2 - PCV) [facility] Start: 1972 Diabetes mellitus screening Diabetes Screening [facility] Start: 1972 Hepatitis C screening Hepatitis C Screening [facility] Start: 1960 Pneumococcal Vaccine: 65+ Years (1 - PCV) Pneumococcal Vaccine: 65+ Years (1 - PCV) [facility] Start: 1955 MMR Vaccines (1 of 1 - Standard series) MMR Vaccines (1 of 1 - Standard series) [facility] Start: 04-30-1955 COVID-19 Vaccine (#1) COVID-19 Vaccine (#1) [facility] Start: 1954 Lipid panel Lipid Panel [facility] Start: 1954 Medicare Annual Wellness Visit Medicare Annual Wellness Visit (AWV) [facility] Start: 1954 Screening for malignant neoplasm of colon [facility] Start: 1954 Thyroid stimulating hormone measurement TSH Level [facility] Patient Education [facility] Work Phone: Patient referral [facility] Work Phone: US Abdominal Aorta f or screening Vascular US Abdominal Aorta Aneurysm AAA Screening Vascular Ultrasound Routine Essential hypertension Atypical atrial flutter Mixed hyperlipidemia Former smoker 03/18/2025 8:55 AM EDT [facility] Service Area Work Phone: End: 06-17-2025 US Heart Transthoracic [facility] Service Area Work Phone: Comment on above: Once for 1 Occurrences starting 06/17/20 until 06/17/2025 Immunizations Immunization Date Immunization Notes Care Provider Fa cility NEGATED: Highlighted row has not occurred!01-05-2021 influenza virus vaccine, unspecified formulation Sarath Hines [facility] Payers Date Payer Category Payer Self-pay [id number] 2024 Private Health Insurance [facility] [id number] 2019 Medicare [id number] 2019 Medicare supplementa l policy (as second payer) [employer] [id number] 2019 Private Health Insurance [id number] 1959 Medicare [id number] 1959 Private Health Insurance [facility] [id number] 1954 Unknown [id number] 2.16.840.1.223229.3.579 .2.356 1954 Unknown [id number] 2.16.840.1.966917.3.579 .2.356 1954 Unknown [id number] 2.16.840.1.566354.3.579 .2.356 1954 Unknown [id number] 2.16.840.1.308550.3.579 .2.356 1954 Unknown [id number] 2.16.840.1.934571.3.579 .2.356 1954 Unknown [id number] 2.16.840.1.630149.3.579 .2.356 1954 Unknown [id number] 2.16.840.1.670657.3.579 .2.593 1954 Unknown [id number] 2.16.840.1.472419.3.579 .2.593 1954 Unknown [id number] 2.16.840.1.323848.3.579 .2.593 1954 Unknown [id number] 2.16.840.1.164112.3.579 .2.593 1954 Unknown [id number] 2.16.840.1.301925.3.579 .2.593 1954 Unknown [id number] 2.16.840.1.376603.3.579 .2.593 1954 Unknown [id number] 2.16.840.1.661305.3.579 .2.593 1954 Unknown [id number] 2.16.840.1.185326.3.579 .2.593 1954 Unknown [id number] 2.16.840.1.113025.3.579 .2.593 1954 Unknown [id number] 2.16.840.1.301989.3.579 .2.593 1954 Unknown [id number] 2.16.840.1.360477.3.579 .2.1259 1954 Unknown [id number] 2.16.840.1.031642.3.579 .2.1259 1954 Unknown [id number] 2.16.840.1.714523.3.579 .2.1259 1954 Unknown [id number] 2.16.840.1.374598.3.579 .2.1246 1954 Unknown [id number] 1955 Unknown [id number] Unknown [id number] Unknown Unknown [id number] Social History Date Type Detail Facility Start: 01-20-2022 End: 06-03-2024 Tobacco smoking status ALIS Ex-smoker (finding) [facility] Start: 12-04-2023 End: 01-06-2025 History of tobacco use [facility] Work Phone: Start: 1955 Sex Assigned At Male [facility] Start: 12-04-2023 End: 01-06-2025 No illicit drug use No illicit drug use [facility]-Janie 250 DO Work Phone: Comment on above: DRINKS 6 BEERS A DAY ; 2 CUPS OF COFFEE RACIEL LY; QUIT IN 08/2021; Start: 04-20-2021 Tobacco smoking status Heavy tobacco smoker (finding) [facility] End: 11-04-2020 Tobacco smoking status Smoker (finding) [facility] Start: 09-29-2022 Tobacco smoking status Never [facility] End: 11-04-2020 History of tobacco use Cigarette Smoker [facility] Work Phone: Start: 12-04-2023 End: 06-03-2024 Tobacco use and exposure Smokeless tobacco non-user [facility] Work Phone: Start: 12-04-2023 End: 01-06-2025 Alcohol intake Current drinker of alcohol (finding) [facility] Work Phone: Start: 1955 Sex Assigned At Not on file [facility] Work Phone: Start: 11-24-2023 End: 03-18-2025 Exposure to SARS-CoV-2 (event) Not sure [facility] Start: 11-26-2024 Tobacco smoking status [facility] Never smoked tobacco [facility] Tobacco smoking status [facility] Tobacco smoking consumption unknown [facility] Start: 06-03-2024 Alcohol Comment daily [facility] Work Phone: Start: 03-29-2025 Sex Male (finding) [facility] Medical Equipment Procedure Code Equipment Code Equipment Origin al Text Equipment Identifier Dates CATARACT EXTRACT ION W/ INTRAOCULAR LENS Sarath Hines DO 04/17/22 Non Biological Eye L [id number] [facility] Start: 04-17-2022 Goals Date Patient Goal Desired Activity /State Functional Status Date Assessment Result Facility 04-17-2022 Functional Status N/A [facility] 01-23-2022 Functional status Patient at Baseline [facility] Work Phone: Mental Status Date Assessment Result Facility 01-23-2022 Cognitive function Cognitive Sta tus Patient at Baseline [facility] Work Phone: Clinical Notes 01-20-2022 to 04-15-2025 Joe García DPM - 04/15/2025 11:10 AM Alex Recinos MD - 01/06/2025 1:20 PM ESTPatient InstructionsAttachmentsJoe García, ROZ - 11/26/2024 10:30 AM ESTPatient Instructions Note [...] Partner Violence: Unknown (12/26/2023) Received from [facility] Safety & Environment Fear of Current or [...] and positive PT pedal pulses NEURO: 5.07 Hampton Vasile monofilament test intact to digits and forefoot bilaterally 125Hz tuning fork diminished to 1st MPJ bilaterally ORTHO: Positive pain on palpation to toenails of the left 1,2,3,4,5 toes and right 1,2,3,4,5 toes Minimal palpation lateral right foot and area of cuboid region ASSESSMENT 1. Diabetes mellitus due to underlying condition with diabetic polyneuropathy, unspecified whether intermediate manager insulin use ([facility]) 2. Pain due to onychomycosis of [...] gear. Joe García DPM documented in this encounter [facility] 03-29-2025 Radiology Diagnostic study note [facility] Main [place] [address] [place] [address] CT Scan Report Signed Patient: Remedios Magaña MR#: [id number] : 1955 Acct:[id number] Age/Sex: 69 / M ADM Date: Loc: ER Room: Type: [facility] ER Attending Dr: Copies to: Trinity Velez DO~ Ordering Provider: Trinity Velez DO Date of Service: 03/29/25 CT/CT head/brain wo con: fall, on eliquis ([id number]) CT/CT cervical spine wo con: fall CT [...] Manzanares M.D. 03/30/2025 8:46 AM Dictation Location: [place] [address] Transcribed By: LAUREN 03/30/2546 Dictated By: Jovanna Manzanares II, MD 03/30/25 0840 Signed By: 03/30/2546 [facility] Work Phone: 01-06-2025 History of Present illness [...] hours if needed., Disp: , Rfl: vitamins A,C,Q-gudz-xrrwed (PreserVision AREDS) 2,148 mcg-113 mg-45 mg-17.4mg tablet, [...] discussion and plan. documented in this encounter [facility] Work Phone: 01-06-2025 Instructions Virginia Crawford [...] be sent through Care Everywhere.Heart Healthy Diet (Azeri)documented in this encounter [facility] Work Phone: 11-26-2024 History of Present [...] Partner Violence: Unknown (12/26/2023) Re[facility] from [facility] [place] Safety & Environment Fear of [...] and positive PT pedal pulses NEURO: 5.07 Hampton Vasile monofilament test intact to digits and [...] diabetic polyneuropathy, unspecified whether intermediate insulin use ([facility]) PLAN Discussed proper foot care with [...] Joe García DPM documented in this encounter [facility] 12-04-2023 History of Present illness Narrative [...] hours if needed., Disp: , Rfl: vitamins A,C,I-vcwz-ifpony (PreserVision AREDS) 2,148 mcg-113 mg-45 mg-17.4mg tablet, [...] type (CMS/HCC) 6. Coronary artery disease involving paimiut coronary artery of paimiut heart without angina pectoris 7. Obesity, Class I, BMI 30-34.9 documented in this encounter [facility] Work Phone: 12-04-2023 Instructions Leticia Mi [...] January as scheduled documented in this encounter [facility] Work Phone: 01-01-2023 Evaluation note Encounter [...] Olga Phipps PharmD, Funmilayo Velazquez PharmD [employer] Other 02-06-2023 Evaluation note* Encounter Date Diagnosis [...] in 3 weeks. Seen by Ana Mujica [facility], Funmilayo Velazquez PharmD [employer] Other 01-23-2023 Evaluation note* Encounter Date Diagnosis [...] 2 weeks. Seen by Ana Mujica RPh [employer] Other 01-12-2023 Evaluation note* Encounter Date Diagnosis Assessment Notes Treatment Notes Treatment Clinical Notes Nov, Medication monitoring encounter (ICD-10 - Z51.81) Referring Provider: Marcus Recinos Diagnosis: Atrial Flutter INR Goal: 2-3 INR: 3.2 Warfarin Tablet Size: 4mg Andrey: 4mg Saturday: 4mg Saturday: 4mg Saturday: 4mg : 2mg Saturday: 4mg Saturday: 4mg Total Weekly Dose: 26mg Determining dose. Begin new plan, a 7% decrease. Follow-up in 1 week. Seen by Carlos A Salazar PharmD [employer] Other 06-01-2022 Hospital Discharge instructions Follow Up Care 04/04/2022 10:45:36 With:JOVANNA LCAEYJUANCARLOS Address: [address] [place], [place] [address]- ( ) -35[address] Business (1) When:1 to 2 days [facility]05-24-20[facility] Discharge summary Author Jin Berkowitz [facility] January 23, 2022 12:48pm Note Date/Time January 23, 2022 12: 48pm [facility] [address] [place] [address] Discharge Summary Signed Patient: Remedios Magaña MR#: [id number] : 1955 Acct:[id number] Age/Sex: 66 / M Adm Date: 2 Loc: Room: [address] [place] [address]: Jin Berkowitz MD Copies to: [...] reformed smoker was recommended to go to [place] [facility] after he was found to have [...] atrial flutter and was recommended togo to [place] [facility].? EKG done there showed changes suspicious for ACS, ED physician spoke to cardiology here and was recommended to transfer here for further evaluation and management.? The patient was transferred to [facility] for further evaluation. Cardiology was consulted. 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 4. ACTIVITY: You are advised to [...] follow the instructions on the bottle. [facility] is not responsible for incorrect prescription [...] Patient Ordered By: Ama Morrison Follow Up: [facility] [Outside] Marcus Recinos MD [Active Staff] - 02/13/22 12:40 pm Tirso Frausto MD [Primary Care Provider] - (You have been scheduled for a follow up appointment for the following date and time, please call to rescheduleif needed.) Documented By: Jin Berkowitz MD 01/23/221243 Signed By: <Electronically signed by Jin Berkowitz MD> 01/23/22 1248 [facility] Work Phone: 1(948) 194-125903-22-2022 Progress note Author Brandt Petit [facility] January 23, 2022 8:50am Note Date/Time January 23, 2022 8:5 0am [facility] [address] [place] [address] Cardiology Progress Note Signed Patient: Remedios Magaña MR#: [id number] : 1955 Acct:[id number] Age/Sex: 66 / M Adm Date: 2 Loc: Room: [address] [place] [address] Type : ADM INOo Attending Dr: Jin [...] for elective cardioversion in 4 weeks for latter-day of normal sinus mechanism (3) Diabetes mellitus: [...] (min): 30 Documented By: Brandt Petit MD 01/23/2244 Signed By: <Electronically signed by Brandt Petit MD> 01/23/2219 [facility] Work Phone: 1(589) 199-324103-22-2022 Hospital Discharge instructions Additional Instructions DISCHARGE INSTRUCTIONS FOR CARDIAC VAT HOUSE LABORER PHONE NUMBER OF YOUR PHYSICIAN: [phone] PROCEDURE: Heart Cath The following instructions have [...] cold, numb, blue or white, call the sales host immediately. 4. ACTIVITY: You are advised to [...] follow the instructions on the bottle. [facility] is not responsible for incorrect prescription information provided by the patient during their visit. Do not stop your medications without consulting your health care provider. Please take the list with you to your next doctor's appointment.[facility] Work Phone: 1(591) 536-340403-21-2022 Progress note Author Jin Berkowitz [facility] January 22, 2022 1:17pm Note Date/Time January 22, 2022 1:1 2pm [facility] [address] [place] [address] Hospitalist Progress Note Signed Patient: Remedios Magaña MR#: [id number] : 1955 Acct:[id number] Age/Sex: 66 / M Adm Date: 2 Loc: Room: [address] [place] [address] Type : ADM INOo Attending Dr: Jin [...] <Electronically signed by Jin Berkowitz MD> 01/22/22 0537 [facility] Work Phone: 1(534) 598-889903-20-2022 Progress note Author Ama Morrison [facility] January 21, 2022 5:02pm Note Date/Time January 21, 2022 3:1 9pm [facility] [address] [place] [address] Hospitalist Progress Note Signed with Addenda Patient: Remedios Magaña MR#: [id number] : 1955 Acct:[id number] Age/Sex: 66 / M Adm Date: 2 Loc: Room: [address] [place] [address] Type : ADM INOo Attending Dr: Ama [...] Tablet PO 01/20/23 20:59 2.5 mg BID NARCSIO Administration Heparin Sodium (Porcine) 4,000 unit 01/20/22 [...] hissymptoms. Documented By: Ama Morrison MD 01/21/22 1511 Signed By: <Electronically signed by Ama Morrison MD> 01/21/22 9343 [facility] Work Phone: 1(162) 187-776803-20-2022 Progress note Author Brandt Petit [facility] January 21, 2022 10:42am Note Date/Time January 21, 2022 10: 41am [facility] [address] [place] [address] Cardiology Progress Note Signed Patient: Remedios Magaña MR#: [id number] : 1955 Acct:[id number] Age/Sex: 66 / M Adm Date: 2 Loc: Room: [address] [place] [address] Type : ADM INOo Attending Dr: Ama [...] MPV Neut % (Auto) Lymph % (Auto) [place] % (Auto) Eos % (Auto) Baso % (Auto) Neut # (Auto) Lymph # (Auto) [place] # (Auto) Eos # (Auto) Baso # (Auto) Nucleated RBC % (auto) APTT POC Glucose 133 POC Glucose Comment Glu2: cleaned meter Troponin I High Sens 7 Add-On Test Request Cancelled 01/20/22 01/20/22 01/20/22 16:41 17:37 20:51 Corrected WBC Uncorrected WBC Count RBC Hgb Hct MCV MCH MCHC RDW Plt Count MPV Neut % (Auto) Lymph % (Auto) [place] % (Auto) Eos % (Auto) Baso % (Auto) Neut # (Auto) Lymph # (Auto) [place] # (Auto) Eos # (Auto) Baso # [...] % (Auto) 56.3 Lymph % (Auto) 26.4 [place] % (Auto) 13.0 Eos % (Auto) 3.1 Baso % (Auto) 1.2 Neut # (Auto) 2.8 Lymph # (Auto) 1.3 [place] # (Auto) 0.6 Eos # (Auto) 0.2 Baso # (Auto) 0.1 Nucleated RBC % (auto) 0.2 APTT 81.3 H POC Glucose 113 POC Glucose Comment Troponin I High Sens Add-On Test Request 01/21/22 07:15 Corrected WBC Uncorrected WBC Count RBC Hgb Hct MCV MCH MCHC RDW Plt Count MPV Neut % (Auto) Lymph % (Auto) [place] % (Auto) Eos % (Auto) Baso % (Auto) Neut # (Auto) Lymph # (Auto) [place] # (Auto) Eos # (Auto) Baso # [...] signed by Brandt Petit MD> 01/21/22 1042 [facility] Work Phone: 1(737) 290-913503-19-2022 Consult note Author Brandt Petit [facility] January 20, 2022 5:08pm Note Date/Time January 20, 2022 5:0 8pm [facility] [address] [place] [address] Cardiology Consult Note Signed Patient: Remedios Magaña MR#: [id number] : 1955 Acct:[id number] Age/Sex: 66 / M Adm Date: 2 Loc: Room: [address] [place] [address] Type : ADM INOo Attending Dr: Ama [...] breath with exertion. He went to an pigment weigher appointment at which time he was told [...] that the patient last night went to [place] emergency department for evaluation. In the [place] ER, an EKG was checked which again [...] mg-vit E 90 mg-zinc 40 mg-copper 1 ts-fheeft-dbrctk capsule (PreserVision AREDS-2) 1 tab PO BID [...] x10E3/uL Lymph # (Auto) 1.3 (1.00-4.8) x10E3/uL [place] # (Auto) 0.6 (0.0-0.8) x10E3/uL Eos # [...] patient. Documented By: Brandt Petit MD 01/20/22 5908 Signed By: <Electronically signed by Brandt Petit MD> 01/20/22 6349 [facility] Work Phone: 1(363) 450-273603-19-2022 History and physical note Author Pola Anders [facility] January 20, 2022 6:26am Note Date/Time January 20, 2022 2:4 5am [facility] [address] [place] [address] Hospitalist H&P Signed Patient: Remedios Magaña MR#: [id number] : 1955 Acct:[id number] Age/Sex: 66 / M Adm Date: 2 Loc: Room: [address] [place] [address] Type : ADM IN Attending Dr: Pola Anders MD Copies to: MD Tirso Chew MD~ HPI DATE OF EXAMINATION: 01/20/22 CHIEF COMPLAINT: chest pain HISTORY OF PRESENT ILLNESS: Patient is a 66-year-old gentleman past medical history of diabetes diet- controlled, hyperlipidemia, BPH, reformed smoker was recommended to go to [place] ED after he was found to have [...] atrial flutter and was recommended togo to [place] ED. EKG done there showed changes suspicious [...] noted below or in HPI [facility] Medical History (Updated 01/20/22 @ 02:46 by [...] mg-vit E 90 mg-zinc 40 mg-copper 1 eb-sxynal-tctkwl capsule (PreserVision AREDS-2) 1 tab PO BID [...] and is hemodynamically stable Labs reviewed from [place] ED which are essentially normal including TSH and Troponin Obtain lipid panel, A1c, echo Consult cardiology Ordered routine labs Telemetry Fall precautions CIWA protocol Resume heparin drip that has been started at [place] [facility] DVT prophylaxis CODE STATUS full code. Documented By: Pola Anders MD 01/20/22 0238 Signed By: <Electronically signed by Pola Anders MD> 01/20/22 0626 [facility] Work Phone: Discharge summary Author Marcus Recinos [facility] March 27, 2022 9:20am Note Date/Time March 27, 2022 9:20a m [facility] [address] [place] [address] Discharge Summary Signed Patient: Remedios Magaña MR#: [id number] : 1955 Acct:[id number] Age/Sex: 66 / M Adm Date: 2 Loc: Room: Attending Dr: Marcus Recinos MD Copies to: MD Marcus Sommer MD, [facility]~ Providers Date of Discharge: 03/27/22 [...] RF: 0 Documented By: Marcus Recinos MD, [facility] 2 20 Signed By: <Electronically signed by MD HAFSA Recinos> 03/27/22 0920 [facility] Work Phone: Evaluation + Plan note No data available for this section [facility] Diagnosis Onset Date Resolution Status Atrial flutter acute Cardiomyopathy acute Chronic alcohol use acute Diabetes mellitus acute Hyperlipidemia acute [facility] Work Phone: Evaluation noteNo assessment information available [facility] Work Phone: Evaluation noteNo InformationNort [employer] Other Evaluation note* Diagnosis Atrial flutter, unspecified type (CMS/HCC)- Primary Benign essential hypertension Essential hypertension, benign High risk medication use Hyperlipidemia, unspecified hyperlipidemia type Pulmonary emphysema, unspecified emphysema type (CMS/HCC) Coronary artery disease involving paimiut coronary artery of paimiut heart without angina pectoris Obesity, Class I, BMI 30-34.9 documented in this encounter [facility] Work Phone: Evaluation note* Diagnosis Contusion of right foot, initial encounter- Primary Pain due to onychomycosis of toenails of both feet Diabetes mellitus due to underlying condition with diabetic polyneuropathy, unspecified whether intermediate manager insulin use (CMS/HCC) documented in this encounter [facility]* Diagnosis Atypical atrial flutter (Multi)- Primary Essential hypertension Unspecified essential hypertension High risk medication use Mixed hyperlipidemia Chronic obstructive pulmonary disease, unspecified COPD type (Multi) BMI 30.0-30.9,adult Former smoker Personal history of tobacco use, presenting hazards to health Obesity, Class I, BMI 30-34.9 Hypothyroidism, unspecified type documented in this encounter [facility] Work Phone: Evaluation note* Diagnosis Diabetes mellitus due to underlying condition with diabetic polyneuropathy, unspecified whether intermediate insulin use (CMS/HCC)- Primary Pain due to onychomycosis of toenails of both feet [facility] Diagnosis Essential hypertension Unspecified essential hypertension Atypical atrial flutter Mixed hyperlipidemia Former smoker Personal history of tobacco use, presenting hazards to health documented in this encounter [facility] Work Phone: Evaluation note* Diagnosis Diabetes mellitus due to underlying condition with diabetic polyneuropathy, unspecified whether intermediate insulin use (HCC)- Primary Pain due to onychomycosis of toenails of both feet [facility] Diagnosis Shortness of breath Essential hypertension Unspecified essential hypertension Mixed hyperlipidemia Atrial flutter, unspecified type (Multi) Chronic obstructive pulmonary disease, unspecified COPD type (Multi) documented in this encounter [facility] Work Phone: History of Present illness Narrative* Joe García, ROZ - 02/04/2025 10:20 AM EDT Patient: Remedios [...] Partner Violence: Unknown (12/26/2023) Received from [facility] Safety & Environment Fear of Current or [...] and positive PT pedal pulses NEURO: 5.07 Hampton Vasile monofilament test intact to digits and forefoot bilaterally 125Hz tuning fork diminished to 1st MPJ bilaterally ORTHO: Positive pain on palpation to toenails of the left 1,2,3,4,5 toes and right 1,2,3,4,5 toes Minimal palpation lateral right foot and area of cuboid region ASSESSMENT 1. Diabetes mellitus due to underlying condition with diabetic polyneuropathy, unspecified whether intermediate insulin use ([facility]) 2. Pain due to onychomycosis of [...] gear. Joe García DPM [facility] Work Phone: Hospital Dis[facility] instructions[facility] Work Phone: Hospital Discharge instructionsBl[facility] Work Phone: Progress note No data available for this section [facility]* Imaging (Routine) - Authorized Specialty Diagnoses / Procedures Referred By Contac t Referred To Contact Cardiology Diagnoses Essential hypertension Atrial flutter, unspecified type (Multi) Mixed hyperlipidemia Former smoker Procedures Vascular US Abdominal Aorta Aneurysm AAA Screening Marcus Recinos MD [address] [facility] [address] [place] [address] Phone: tel: fax: Referral ID Status Reason Start Date Expiration Date Visits Requested Visits Authorized [id number] Authorized Perform Procedure 01/06/2025 01/06/2026 1 1 [facility] Work Phone: Reason for visit Narrative* CV Imaging (Routine) - Authorized Specialty Diagnoses / Procedures Referred By Contac t Referred To Contact Cardiology Diagnoses Shortness of breath Essential hypertension Mixed hyperlipidemia Atrial flutter, unspecified type (Multi) Chronic obstructive pulmonary disease, unspecified COPD type (Multi) Procedures Transthoracic Echo Complete DE ECHO TTHRC R-T 2D W/WOM-MODE COMPL SPEC&COLR D Marcus Recinos MD [address] [facility] [address] [place] [address] Phone: tel: fax: Referral ID Status Reason Start Date Expiration Date Visits Requested Visits Authorized [id number] Authorized Perform Procedure 04/12/2025 04/12/2026 1 1 [facility] Work Phone: Chief Complaint and Reason [...] Date/ Time Advance Directives No January 20 12:25am Chief Complaint * REMEDIOS MAGAÑA is [...] Recinos MD for review.Amiodarone Order sent to [facility] for testing due in MARCH* S/P CARDIOVERSION. [...] in the past Amiodarone Order sent to [facility] for testing due in JulyAmiodarone order sent to [facility] for October 2022* REMEDIOS MAGAÑA [...] diet. Amiodarone order sent to [facility] for January 2023* Patient in [...] test done please contact our office at [phone] and press option #4 so that we may assist you in the problems. * Thank you for your compliance with this testing. * The Staff * [facility] * Please have done July 2023 [...] Procedures ECG 12 Lead Marcus Recinos MD [address] [place] [address] [address], [address] [address] Referral ID Status Reason Start Date Expiration Date [facility] Requested Visits Authorized [id number] Authorized 12/04/2023 12/03/2024 1 1 Specialty Diagnoses / Procedures Referred By Contac t Referred To Contact Cardiology Diagnoses Benign essential hypertension Atrial flutter, unspecified type (CMS/HCC) Procedures Follow Up In Cardiology Marcus Recinos MD [address] [place] [address] [address], [address] [address] Marcus Recinos MD [address] [place] [address] 2, [address] [address] Referral ID Status Reason Start Date Expiration Date V isits Requested Visits Authorized [id number] Authorized 12/04/2023 12/03/2024 1 1 Additional Source [...] MD Attending Provider, Referring Prov ider Active Carpet Cleaning Technician Relationship Specialty Start Date End Date Tirso Frausto MD [address] [place] [address] PCP - General 11/04/99 Carpet Cleaning Technician Relationship Specialty Start Date End Date Tirso Frausto MD [address] [place] [address] PCP - General Family Medicine 11/26/24 Carpet Cleaning Technician Relationship Specialty Start Date End Date Tirso Frausto MD [address] [place] [address] PCP - General 11/04/99 Carpet Cleaning Technician Relationship Specialty Start Date End Date Tirso Frausto MD [address] [place] [address] PCP - General Family Medicine 11/26/24 Carpet Cleaning Technician Relationship Specialty Start Date End Date Tirso Frausto MD [address] [place] [address] PCP - General Family Medicine 11/26/24 Carpet Cleaning Technician Relationship Specialty Start Date End Date Tirso Frausto MD [address] [place] [address] PCP - General 11/04/99 Team Status: Inactive Member Role Status Dates Tirso Frausto MD Primary Care Provider Active Start: March 29, 2025 End: March 29, 2025 Trinity Velez DO Emergency Provider Active Start: March 29, 2025 End: March 29, 2025 Carpet Cleaning Technician Relationship Specialty Start Date End Date Tirso Frausto MD PCP - General Family Medicine 11/26/24 Carpet Cleaning Technician Relationship Specialty Start Date End Date Tirso Frausto MD PCP - General Family Medicine 11/26/24 Carpet Cleaning Technician Relationship Specialty Start Date End Date Tirso Frausto MD [address] [place] [address] PCP - General 11/04/99 (unrecognized sect ion and content) No Status Records FoundNo Status Records FoundNo Status Records FoundNo Status Records FoundNo Status Records FoundNo Status Records FoundNo Status Records FoundNo Status Records Found INFORMATION SOURCE (unrecogn ized section and content) DATE CREATED AUTHOR 04/25/2022 [employer] DATE CREATED AUTHOR AUTHOR'S ORGANIZ ATION 02/10/2023 [facility] DATE CREATED AUTHOR AUTHOR'S ORGANIZ ATION 03/15/2023 [facility] pital DATE CREATED AUTHOR AUTHOR'S ORGANIZ ATION 02/20/[address] [facility] Center DATE CREATED AUTHOR AUTHOR'S ORGANIZ ATION 04/18/2025 [facility] CRE[facility] AUTHOR AUTHOR'S ORGANIZ ATION 04/25/2025 [facility] DATE CREATED AUTHOR AUTHOR'S ORGANIZ ATION 06/21/2025 [facility] DATE CREATED AUTHOR AUTHOR'S ORGANIZ ATION 06/22/2025 [facility] Ambulatory Goals (unrecognized section and content) Goals may be documented in a n alternate section REASON FOR VISIT (unrecogniz ed section and content) Reason Comments Follow-up 6 months Specialty Diagnoses / Procedures Referred By Contac t Referred To Contact Diagnoses Atrial flutter, unspecified type (CMS/HCC) Procedures ECG 12 Lead Marcus Recinos MD [address] [place] [address] [address], [address] [address] Referral ID Status Reason Start Date Expiration Date V isits Requested Visits Authorized [id number] Authorized 12/04/2023 12/03/2024 1 1 Reason Comments Toenail Care Non dm nail care Reason Comments Follow-up 6m Specialty Diagnoses / Procedures Referred By Contac t Referred To Contact Cardiology Diagnoses Benign essential hypertension Procedures Follow Up In Cardiology Marcus Recinos MD [address] [facility] [address], [address] [address] Phone: tel: fax: Marcus Recinos MD [facility] [facility] [address], [address] [address] Phone: tel: fax: Referral ID Status Reason Start Date Expiration Date V isits Requested Visits Authorized [id number] Authorized 06/03/2024 06/03/2025 1 1 Reason Comments [...] BE BASED ON THE PRIMARY CLINICAL RECORDS. [facility] [employer] provides no warranty or guarantee of the accuracy or completeness of information in this document.
[2025-07-09 10:28] LABS: Anion Gap 14.1; Aspartate Amino Transferase 122 U/L (15-37); Blood Urea Nitrogen 13.0 mg/dL (7.0-18.0); Calcium 8.9 mg/dL (8.5-10.1); Carbon Dioxide 29.3 mmol/L (21.0-32.0); Chloride 103 mmol/L (98-107); Estimated GFR (African America >60 (>=60 mL/min/1.73m^2); Estimated GFR (Non-African Ame >60 (>=60 mL/min/1.73m^2); Glucose 132 mg/dL (74-106); Potassium 4.4 mmol/L (3.5-5.1); Sodium 142 mmol/L (136-145); Thyroid Stimulating Hormone 3.658 uIU/mL (0.358-3.740)
== END 2025-07-09 08:36 | disposition home or self-care (01) ==
LOC: LAB 08:35
PROVIDERS: PCP Family Medicine; Visit Provider Internal Medicine Cardiovascular Disease
DX: I48.92 Unspecified atrial flutter (principal); Z79.899 Other long term (current) drug therapy
CPT/HCPCS: 36415; 80048; 84443; 84450